=== PATIENT | female | born 1945 | race Caucasian/White ===

== ENCOUNTER 2021-06-16 14:03 | Emergency (ER) | payer MEDICARE, BC, SELFPAY ==
--- NOTE | ~2021-06-16 | CT_ITS ---
EXAMINATION: CT brain wo con DATE: 06/16/2021 14:39 INDICATION: Laceration above the right orbit. Ground-level fall. TECHNIQUE: Computed tomography (CT) of the head was performed without intravenous contrast. The dose- length product was 605.33 mGy-cm. Automated exposure control and iterative reconstruction technique w ere employed. COMPARISON: None FINDINGS: There are scattered moderate periventricular and subcortical white matter changes, most lik baldemar related to small vessel ischemic disease (microangiopathy). There is intracranial atherosclerosis . Basilar cisterns are patent. No acute intracranial hemorrhage, infarction, mass or mass effect. Bas ilar cisterns are patent. Paranasal sinuses and mastoids are pneumatized. No depressed skull fracture s. IMPRESSION: 1. No acute intracranial abnormality. 2: Chronic age-related findings. Reviewed, dictated and finalized at location A. H MAKER MACHINE
--- NOTE | ~2021-06-16 | CT_ITS ---
EXAMINATION: CT cervical spine wo con DATE: 06/16/2021 14:39 INDICATION: Ground-level fall. Neck pain. TECHNIQUE: Computed tomography (CT) of the cervical spine was performed without intravenous contrast. The dose-length product was 422 mGy-cm. COMPARISON: No prior studies for comparison. FINDINGS: There are changes of anterior cervical fusion and discectomy at C4-C7. There are degenerati ve disc disease at C3-4 and C7-T1. There is multilevel uncinate and facet hypertrophy. Odontoid proce ss is normal. Mild levocurvature of the cervical spine. Lung apices are normal. No significant parasp inal soft tissue abnormality. No acute fracture or traumatic malalignment. IMPRESSION: 1. No acute abnormality of the cervical spine. Reviewed, dictated and finalized at location A. ET CONTRACTOR
--- NOTE | ~2021-06-16 | XR_ITS ---
EXAMINATION: XR elbow RT min 3V DATE: 06/16/2021 14:28 INDICATION: Right elbow pain. TECHNIQUE: 4 views of right elbow were obtained. COMPARISON: None. FINDINGS: Bone alignment is normal. No fracture. 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 There is an elbow joint effusion. IMPRESSION: 1. Severe elbow joint osteoarthritis. 2. Elbow joint effusion. Reviewed, dictated and finalized at location A. LATORY LEAD
[2021-06-16 14:08] VITALS: BP 165/96; PULSE 99; RESP 16; TEMP 36.8; O2SAT 98
--- NOTE | 2021-06-16 15:38 | ED.FALL ---
HPI - Fall General Chief Complaint: Fall <Amanuel Donis MD - Last Filed: 06/16/21 16:59> Stated Complaint: fall, head injury <Amanuel Donis MD - Last Filed: 06/16/21 16:59> Time Seen by Provider: 06/16/21 14:07 <Amanuel Donis MD - Last Filed: 06/16/21 16:59> Source: patient <Amanuel Donis MD - Last Filed: 06/16/21 16:59> History of Present Illness HPI Narrative: Patient presents after a fall. Reports she tripped on her own feet fell on her right elbow and struck her right face. Her friend assisted with wound care and they then presented to the ER for further evaluation. She reports pain above her right eye constant achy worse with touching it, no radiation. She denies any changes in vision or hearing denies any focal numbness or weakness. She denies any prodrome prior to the event such as chest pain breath, dizziness, lightheadedness. Reports hearing well earlier in the day denies any nausea vomiting or diarrhea. <Amanuel Donis MD - Last Filed: 06/16/21 16:59> Review of Systems Review of Systems: CONSTITUTIONAL: Denies fever, chills, or sweats. EYES: Denies visual changes, redness, or discharge. ENT: Denies rhinorrhea, congestion, sore throat, or otalgia. CARDIOVASCULAR: Denies chest pain, palpitations, or edema. RESPIRATORY: Denies cough or dyspnea. GASTROINTESTINAL: Denies abdominal pain, nausea, vomiting, or diarrhea. GENITOURINARY: Denies dysuria or hematuria. SKIN: Denies rash or itching. MUSCULOSKELETAL: Denies back pain, joint pain, or myalgia. NEUROLOGIC: Denies numbness, dizziness, or weakness. PSYCHIATRIC: Denies anxiety or depression. <Amanuel Donis MD - Last Filed: 06/16/21 16:59> All systems reviewed & are unremarkable except as noted in HPI and below <Amanuel Donis MD - Last Filed: 06/16/21 16:59> Exam Narrative: GENERAL: Well-appearing, well-nourished, and in no acute distress. HEAD: Normocephalic, 4 cm laceration above the right orbit hemostatic no deep space tissue identified on wound exploration abrasion noted on the bridge of the nose EYES: PERRLA and EOMI. ENT: Nares clear, no rhinorrhea or epistaxis. Mucous membranes moist. No fractured teeth NECK: Supple. No masses. No JVD CHEST: Clear to auscultation. No respiratory distress. No wheezes rales or rhonchi HEART: Regular rate and rhythm. No murmur heard. Normal peripheral pulses. ABDOMEN: Soft, nontender, nondistended, normal active bowel sounds. EXTREMITIES: Normal range of motion. No edema. Mild diffuse tenderness on the right elbow SKIN: Warm, dry, no rash. NEURO: Cranial nerves II through XII are intact patient has 5 out of 5 strength in all extremities sensation intact to light touch in all extremities alert and oriented x3. PSYCH: Normal mood and affect. <Amanuel Donis MD - Last Filed: 06/16/21 16:59> Course Reevaluation(s) Reevaluation #1: Results reviewed with patient. Wound currently being sutured <Amanuel Donis MD - Last Filed: 06/16/21 16:59> Date: 06/16/21 <Amanuel Donis MD - Last Filed: 06/16/21 16:59> Time: 15:41 <Amanuel Donis MD - Last Filed: 06/16/21 16:59> Vital Signs Vital signs: Vital Signs Temperature 36.8 C 06/16/21 14:08 Pulse Rate 99 06/16/21 14:08 Respiratory Rate 16 06/16/21 14:08 Blood Pressure 165/96 H 06/16/21 14:08 Pulse Oximetry 98 06/16/21 14:08 Temperature 36.8 C 06/16/21 14:08 Pulse Rate 99 06/16/21 14:08 Respiratory Rate 16 06/16/21 14:08 Blood Pressure 165/96 H 06/16/21 14:08 Pulse Oximetry 98 06/16/21 14:08 <Amanuel Donis MD - Last Filed: 06/16/21 16:59> Vital Signs Temperature 36.8 C 06/16/21 14:08 Pulse Rate 99 06/16/21 14:08 Respiratory Rate 16 06/16/21 14:08 Blood Pressure 165/96 H 06/16/21 14:08 Pulse Oximetry 98 06/16/21 14:08 Temperature 36.8 C 06/16/21 14:08 Pulse Rate 99 06/16/21 14:08 Respiratory Rate 16 06/16/21 14:08
== END 2021-06-16 16:34 | disposition home or self-care (01) ==
PROVIDERS: Emergency Provider Emergency Medicine; PCP Family Medicine
DX: S01.111A Laceration without foreign body of right eyelid and periocular area, initial encounter (principal); S50.01XA Contusion of right elbow, initial encounter; S00.31XA Abrasion of nose, initial encounter; M19.021 Primary osteoarthritis, right elbow; W01.0XXA Fall on same level from slipping, tripping and stumbling without subsequent striking against object, initial encounter
CPT/HCPCS: 12013; 70450; 72125; 73080; 99284

== ENCOUNTER 2022-12-20 10:18 | Emergency (ER) | payer MEDICARE, OTHER, SELFPAY ==
[2022-12-20] VITALS (12 sets, daily range): BP systolic 130–157; BP diastolic 65–124; PULSE 66–81; RESP 15–23; TEMP 36.3; O2SAT 92–100
[2022-12-20 11:50] LABS: Basophils Percent Auto 0.2 % (0.2-1.2); Hemoglobin 10.6 g/dL (12.0-15.0); Immature Granulocyte Absolute 0.01 K/mm3 (0.00-0.031); Immature Granulocyte Percent A 0.2 % (0-0.5); Lymphocytes Absolute Auto 0.64 K/mm3 (0.9-3.2); Lymphocytes Percent Auto 10.7 % (18.3-44.2); Mean Corpuscular HGB Conc 34.2 g/dl (32-36); Mean Corpuscular Hemoglobin 32.6 pg (26-34); Mean Corpuscular Volume 95.4 fl (80-100); Mean Platelet Volume 9.7 fl (7.4-10.4); Monocytes Absolute Auto 0.7 K/mm3 (0.1-0.6); Monocytes Percent Auto 11.9 % (2.6-8.5); Neutrophils Absolute Auto 4.6 K/mm3 (1.3-6.7); Platelet Count Result 208 k/mm3 (150-375); Red Blood Count 3.25 M/mm3 (4.2-5.4); Red Cell Distribution Width 13.2 % (11.5-14.5)
[2022-12-20 12:03] LABS: Alanine Aminotransferase 28 U/L (6-35); Albumin Level 4.6 g/dL (3.5-5.1); Alkaline Phosphatase 69 U/L (38-126); Anion Gap 7 mmol/L (8-16); Aspartate Amino Transferase 32 U/L (14-36); Blood Urea Nitrogen 14 mg/dL (7-17); Calcium 9.4 mg/dL (8.4-10.2); Carbon Dioxide 28 mmol/L (22-30); Chloride 88 mmol/L (98-107); Estimated CRCL calculation 43 ml/min; Estimated Glomerular Filt Rate > 60; Glucose 102 mg/dL (65-110); Sodium 123 mmol/L (137-145)
[2022-12-20 13:03] LABS: Appearance Urine Cloudy (Clear); Bacteria Urine 1+ /hpf; Bilirubin Urine Negative (Negative); Blood Urine 3+ (Negative); Color Urine Yellow (Yellow); Glucose Urine UA Negative (Negative); Ketones Urine Negative (Negative); Leukocyte Esterase Ur 3+ LEU/UL (Negative); Nitrate Urine Negative (Negative); Non Pathogenic Casts 0-2; Protein Urine Trace mg/dL (Negative); RBC Urine >100 /hpf (0-2); Specific Grav Ur 1.012 (1.001-1.035); Squamous Epithelial Cell Urine None seen /hpf (Few); Urobilinogen Urine 0.2 mg/dL (<2.0); WBC Urine >100 /hpf; pH Urine 6.5 (5.0-9.0)
--- NOTE | 2022-12-20 13:03 | ED.RECABL ---
HPI - Recheck/Abnormal Lab/Rx General Chief Complaint: Recheck/Abnormal Lab/Rx Stated Complaint: sent by MD for low sodium (123) Time Seen by Provider: 12/20/22 11:51 Source: patient and RN notes reviewed Mode of arrival: ambulatory Limitations: no limitations History of Present Illness HPI narrative: This is a 77 year old female who presents for evaluation of hyponatremia. Patient states she had outpatient labs drawn by her site operations manager. She was found to have sodium 123 and she was told to come to ER. She reports over the past 6 months she had been pushing fluids, water. She deneis nausea, vomiting, diarrhea, headache or dizziness. She denies taking diuretics. She also thinks she has UTI today. She has increased urinary urgency today and dysuria. She states she has not started hematuria yet. She has not been on antibiotics this year. Related Data Home Medications Medication Instructions Recorded Confirmed trazodone 50 mg tablet 50 mg PO QHS PRN 11/21/20 09/26/22 meloxicam 15 mg tablet 15 mg PO DAILY 04/11/22 09/26/22 methotrexate sodium 2.5 mg tablet See Rx Instructions PO WEEKLY 04/11/22 09/26/22 olmesartan 40 mg tablet 40 mg PO DAILY 04/11/22 09/26/22 biotin 1,000 mcg chewable tablet 1,000 mcg PO DAILY 09/26/22 09/26/22 duloxetine 60 mg capsule,delayed 90 mg PO QAM 09/26/22 09/26/22 release hydroxychloroquine 200 mg tablet 200 mg PO DAILY 09/26/22 09/26/22 Allergies Allergy/AdvReac Type Severity Reaction Status Date / Time guaifenesin Allergy Rash Verified 12/20/22 11:39 Review of Systems Constitutional: Constitutional: Denies weakness Cardiovascular: Cardiovascular: Denies syncope, Denies rapid heart rate, Denies irregular heart rhythm, Denies leg edema and Denies dyspnea Respiratory: Respiratory: Denies chest congestion, Denies hemoptysis, Denies excessive phlegm production and Denies dyspnea Gastrointestinal: Gastrointestinal: Denies abdominal pain, Denies hematochezia, Denies diarrhea and Denies vomiting Genitourinary: Genitourinary: Denies hematuria and Reports dysuria Musculoskeletal: Musculoskeletal: Reports back pain, Denies joint swelling, Denies loss of height and Denies muscle weakness Neurologic: Denies syncope, Denies focal weakness and Denies weakness PMFSH Past Medical History Medical History (Updated 12/20/22 @ 19:03 by Esthela Haas MD) Arthritis 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 Hypertension Lumbar spondylosis NPH (normal pressure hydrocephalus) Osteoporosis Rheumatoid arthritis Thyroid disorder Surgical History Surgical History (Updated 12/20/22 @ 13:08 by Esthela Haas MD) Hip bursitis, left debridement with abductor repair 2011 History of arthroscopy of left knee 2015 - meniscectomy S/P CMO shunt Family History Family History Mother Cancer Hypertension Heart disease Depression Cerebrovascular accident Social History Social History Smoking status: Never smoker Second hand tobacco smoke exposure: No Alcohol intake: never Lack of Transportation: No Lack of Food: Never True Current Housing: I Have Housing Concerned About Future Housing: No Difficulty Paying Gas/Electric Bills: No Difficulty Paying for Meds: No Currently Unemployed: No Education: High School Diploma/GED Difficulty w/ Childcare or Family Care: No Living arrangements: alone Occupation/Education: retired Gender identity (if verbalized by the patient): Female Exam Const: General: no acute distress and alert Nutritional Appearance: well nourished Orientation/consciousness: patient oriented x3 HENMT: Head: normal to inspection Eyes: EOM: EOMs intact bilaterally Neck: Neck: normal visual inspection Chest: Chest palpation & inspection: normal inspection of the chest Resp: Effort & Inspection: normal respiratory e
[2022-12-20 13:04] LABS: Add Urine Microscopic? YES
[2022-12-20] MEDS: SODIUM CHLORIDE 0.9% IV 1,000 ML 999 ML IV CONT (13:08)
[2022-12-20] MEDS: SODIUM CHLORIDE 0.9% IV 1,000 ML 125 ML IV CONT (14:08)
--- NOTE | 2022-12-20 14:27 | PC.NURSE ---
Pt requesting to leave MD PRINCE and hospitalist aware.
--- NOTE | 2022-12-20 15:29 | P.PNCROSS_ITS ---
Event Note Event Note Event Note: Patient was sent to the emergency department by her cash management coordinator after routine blood work showed hyponatremia. Patient has a history of normal pressure hydrocephalus for which she underwent BIOFUELS PLANT MANAGER shunt placement in February 2022 at [place]. Patient states that since then her sodium level has retain the been low. It patient has no symptoms of dizziness nausea vomiting headache seizures and patient states that she feels baseline well. She was found to have urinalysis suggestive of urinary tract infection and patient noted minimal dysuria but no other symptoms. ER provider recommended hospitalization due to hyponatremia. Last sodium was 133 and before that 127 no prior values on record. Sodium level today is 123. Patient did not want to be admitted to the hospital. I discussed this with ED provider and she stated that patient could sign out AMA but she would not discharge the patient. I presented options of signing out AMA verses observation stay with repeat sodium level to make sure she did not get over corrected too quickly. Patient stated that she did not want to stay in the hospital that she understood the risks of doing so including symptoms of headache, dizziness, nausea, vomiting, seizures, , and other unknown symptoms. Patient reports that she is going to eat some salty food including popcorn when she goes with her friends to the movies today. Patient reports that she drove here but she would have her daughter come pick her up. She was on the phone with the daughter and ordered a [employer] sandwich while I was discussing potential AMA with patient. Due to the urinary tract infection likelihood patient did receive IV Rocephin in the emergency department. Additionally, she received 1 L IV fluids normal saline. Prescription for cefdinir sent to patient's pharmacy.
== END 2022-12-20 14:35 | disposition left against medical advice (07) ==
LOC: ANHED 11:51 → ANH3MEDSUR 14:26 → ANHED 14:29
PROVIDERS: Emergency Provider General Practice; PCP Family Medicine
DX: E87.1 Hypo-osmolality and hyponatremia (principal); N39.0 Urinary tract infection, site not specified; I10 Essential (primary) hypertension; M06.9 Rheumatoid arthritis, unspecified
CPT/HCPCS: 36415; 80053; 81001; 84443; 85025; 87077; 87086; 87186; 96365; 99284; J0696; J7030

== ENCOUNTER 2025-03-16 21:56 | Inpatient (IN) | payer MEDICARE, OTHER, SELFPAY ==
[2025-03-16] VITALS (10 sets, daily range): BP systolic 129–140; BP diastolic 57–62; PULSE 75–82; RESP 15–23; TEMP 36.7; O2SAT 94–98
--- NOTE | ~2025-03-16 | CT_ITS ---
EXAMINATION: CT thoracic lumbar w con DATE: 03/17/2025 01:17 INDICATION: Discitis/osteoarthritis. TECHNIQUE: Computed tomography (CT) of the thoracic and lumbar spine was performed without intravenous contrast. Automated exposure control and iterative reconstruction technique were employed. The dose-length product was 823.99 mGy-cm. COMPARISON: None FINDINGS: CT THORACIC SPINE: There is 15 degrees dextroscoliosis of thoracic spine there is mild chronic anterior wedging of multiple thoracic vertebral bodies. There are changes of anterior fusion procedure in cervical spine. There is 2 mm anterolisthesis of C7 on T1. There is severely decreased disc height at most thoracic levels. There is multilevel severe facet joint osteoarthritis. There is mild neural foraminal stenosis at many levels on either side. On the right, there is moderate neural foraminal stenosis at C7-T1 and T12-L1. On the left, there is moderate neural foraminal stenosis at T5-T6. There is mild central canal stenosis at many levels. CT LUMBAR SPINE: There is 17 degrees levoscoliosis of thoracolumbar spine. Vertebral body heights are normal. There is severely decreased disc height at all levels. There is multilevel severe facet joint osteoarthritis. The discs are bulging from L1-L2 through L5-S1 with mild neural foraminal stenosis at multiple levels. On the right, there is moderate neural foraminal stenosis at L1-L2 and L2-L3. On the left, there is moderate neural foraminal stenosis at L3-L4, L4-L5, and L5-S1. There is mild central canal stenosis at the disc levels from L1-L2 through L5-S1. IMPRESSION: 1. No evidence of discitis/osteomyelitis. 2. Severe thoracic and lumbar spondylosis. 3. Scoliosis. 4. Anterior fusion procedure in cervical spine. Reviewed, dictated and finalized at location E. WORKING SHOP LABORER
--- NOTE | ~2025-03-16 | XR_ITS ---
EXAMINATION: XR chest 1V portable COMPARISON: No comparisons available. HISTORY: verify picc THAT WAS PLACED TRANSPORTATION MAINTENANCE OPERATOR FINDINGS: Mild pulmonary venous congestion. No pneumothorax. Mild cardiomegaly. Mediastinal and hilar contours are within normal limits. Post sternotomy. Miscellaneous: Right PICC line terminates in the SVC. Probable right-sided STORY TELLER shunt. Impression: Mild CHF. PICC line placement as above. Reviewed, dictated and finalized at location P. EAR TECHNICIAN Impression: Mild CHF. PICC line placement as above.
--- NOTE | ~2025-03-16 | XR_ITS ---
XR shunt series 03/16/2025 23:04 Indication: Altered mental status Procedure: 5 views of the ventriculoperitoneal shunt Comparison: 12/20/2011 Findings: Right-sided ventriculoperitoneal shunt identified terminating in the left mid abdomen. No shunt discontinuity identified. There is a nodular opacity in the right upper thorax. Correlation with CT chest recommended. Status post median sternotomy for CABG. There is prosthetic heart valve. Impression: 1: BI[employer] ENG[employer] shunt catheter enters the right frontal/parietal region. No discontinuity or kinking of the proximal catheter. Valve reservoir appears intact and continuous from skull to peritoneum. 2: Nodular opacity right apex. Correlation with CT chest recommended. Reviewed, dictated and finalized at location I. ENISHMENT ANALYST Impression: 1: BI[employer] shunt catheter enters the right frontal/parietal region. No discontinuity or kinking of the proximal catheter. Valve reservoir appears intact and contin uous from skull to peritoneum. 2: Nodular opacity right apex. Correlation with CT chest recommended.
--- NOTE | ~2025-03-16 | CT_ITS ---
CT HEAD NON-CONTRAST Clinical History: AMS Comparison: CT brain 06/16/2021 Technique: Unenhanced axial images skull base to vertex Coronal, sagittal reformats CT images acquired with automatic exposure control for dose reduction DLP: 681 mGy-cm Findings: Right frontal approach SHIP KEEPER shunt with catheter tip at septum pellucidum. Chronic white matter microvascular ischemic changes. Sulci, ventricles: Unremarkable. No intracerebral hemorrhage. No evidence acute territorial infarct. No mass effect, midline shift. Bony calvarium intact. Visualized paranasal sinuses: Left maxillary, ethmoid, frontal disease. Mastoid air cells: Clear. IMPRESSION: 1. No acute intracranial findings. Reviewed, dictated and finalized at location R. E SPECIALIST
--- NOTE | ~2025-03-16 | CT_ITS ---
EXAMINATION: CTA chest PE abdomen pel DATE: 03/17/2025 01:15 INDICATION: Discitis/osteomyelitis. Altered mental status. TECHNIQUE: Computed tomography angiography (CTA) of the chest was performed with 100 mL Omnipaque-350 intravenous contrast timed to evaluate the pulmonary arteries. Coronal maximum intensity projection 3D-reconstructions were created by the technologist. Computed tomography (CT) of the abdomen and pelvis was performed with intravenous contrast. Automated exposure control and iterative reconstruction technique were employed. The dose-length product was 742.31 mGy-cm. COMPARISON: None. FINDINGS: CTA chest: There is septal thickening in the lungs, consistent mild pulmonary edema. There are subsegmental airspace opacities in right upper lobe and right middle lobe. There is a trace left pleural effusion. There are changes of thyroidectomy. The heart size is normal. There are coronary artery calci fications. There are changes of coronary artery bypass grafting. No pericardial effusion. There are changes of anterior fusion procedure in cervical spine. There is severe thoracic spondylosis. Thoracic dextroscoliosis is noted. CT abdomen and pelvis: The liver, gallbladder, spleen, pancreas, adrenal glands, and right kidney are normal. There is a 10 mm cyst in left kidney. There are no dilated loops of bowel. The appendix is not visualized. There is trace pelvic ascites. The periuterine veins and ovarian veins are enlarged, consistent with pelvic venous insufficiency. There are no pathologically enlarged lymph nodes. A ventriculoperitoneal shunt is noted. There is thoracolumbar levoscoliosis. There is severe lumbar spondylosis. IMPRESSION: 1. No pulmonary embolus. 2. Mild pulmonary edema. 3. Mild airspace opacities in right upper lobe and right middle lobe, consistent with atelectasis versus pneumonia. Reviewed, dictated and finalized at location E. HEAD CARPENTER IMPRESSION: 1. No pulmonary embolus. 2. Mild pulmonary edema. 3. Mild airspace opacities in right upper lobe and right middle lobe, consisten t with atelectasis versus pneumonia.
--- OUTSIDE RECORDS SUMMARY | 2025-03-16 11:45 | XMS_ITS | Encounter Summary ---
Author Organization [facility] Address [address] [facility] [address] [place] [address] Phone Care Team Providers Care Mammography Tech Name Role Phone Pascual Connor MD Primary Care Provider [phone] Jenifer Quezada PT Unavailable Unavaila ble Encounter Details Date Type Department Care Team (Late st Contact Info) Description 03/16/2025 11:45 AM FLEA MARKET SELLER Office Visit [facility] Medicine Cardiothoracic Surgery [address] [facility] 8th Floor [address] [place], [place] [address] Brenna Chavez MD [address] [facility] [id number] [place] [address] Social History Tobacco Use Types Packs/Day Years Used Date Smoking Tobacco: Never Smokeless Tobacco: Never Alcohol Use Standard Drinks/Week Comments Never 0 (1 standard drink = 0.6 oz pur e alcohol) Social Connection and Isolation Panel Answer Date Recorded In a typical week, how many times do you talk on the phone with family, friends, or neighbors? Three times a week 02/08/2022 How often do you get togethe r with friends or relatives? Twice a week 02/08/2022 How often do you attend chur ch or hinduism services? More than 4 times per year 02/08/2022 Do you belong to any clubs o r organizations such as restoration groups, unions, fraternal or athletic groups, or school groups? Yes 02/08/2022 How often do you attend meet ings of the clubs or organizations you belong to? More than 4 times per year 02/08/2022 Are you , , di vorced, , never , or living with a partner? 02/08/2022 Overall Financial Resource Strain (CARDIA) Answe r Date Recorded How hard is it for you to pa y for the very basics like food, housing, medical care, and heating? Not hard at all 02/08/2022 PHQ-2 Answer Date Recorded PHQ-2 Total Score 0 01/10/2025 PRAPARE - Transportation Answer Date Re corded In the past 12 months, has l ack of transportation kept you from medical appointments or from getting medications? No 01/13 In the past 12 months, has l ack of transportation kept you from meetings, work, or from getting things needed for daily living? No 02/08/2022 Housing Stability Vital Sign Answer Sergio e Recorded In the last 12 months, was t here a time when you were not able to pay the mortgage or rent on time? No 02/08/2022 In the last 12 months, how many places have you lived? 1 02/08/2022 In the last 12 months, was t here a time when you did not have a steady place to sleep or slept in a retirement (including now)? No 02/08/2022 Social Connection and Isolation Panel Answer Date Recorded In a typical week, how many times do you talk on the phone with family, friends, or neighbors? More than three times a week 01/10/2025 How often do you get togethe r with friends or relatives? More than three times a week 01/10/2025 How often do you attend chur ch or hinduism services? More than 4 times per year 01/10/2025 Do you belong to any clubs o r organizations such as restoration groups, unions, fraternal or athletic groups, or school groups? Yes 01/10/2025 How often do you attend meet ings of the clubs or organizations you belong to? More than 4 times per year 01/10/2025 Are you , , di vorced, , never , or living with a partner? 01/10/2025 AUDIT-C Answer Date Recorded Frequency of Alcohol Consumption Not on file 03/02/2025 Q2: How many drinks containi ng alcohol do you have on a typical day when you are drinking? Patient does not drink Frequency of Binge Drinking Not on file 02/12 Overall Financial Resource Strain (CARDIA) Answe r Date Recorded How hard is it for you to pa y for the very basics like food, housing, medical care, and heating? Not hard at all 01/10/2025 Hunger Vital Sign Answer Date Recorded Within the past 12 months, y ou worried that your food would run out before you got the money to buy more. Never true 01/11/20 25 Within the past 12 months, t he food you bought just didn't last and you didn't have money to get more. Never true 01/10/2025 PRAPARE - Transportation Answer Date Re corded In the past 12 months, has l ack of transportation kept you from medical appointments or from getting medications? No 12/14 In the past 12 months, has l ack of transportation kept you from meetings, work, or from getting things needed for daily living? No 01/10/2025 Housing Stability Vital Sign Answer Sergio e Recorded In the last 12 months, was t here a time when you were not able to pay the mortgage or rent on time? No 01/10/2025 In the past 12 months, how m any times have you moved where you were living? 0 01/10/2025 At any time in the past 12 m [facility], were you homeless or living in a retirement (including now)? No 01/10/2025 [facility] Utilities Answer Date Recorded In the past 12 months has e electric, gas, oil, or water company threatened to shut off services in your home? No 01/10/2025 Personal Safety Answer Date Recorded Have you ever been in or are you currently in a harmful physical or emotional relationship or is someone making you feel afraid or unsafe? Denies 01/17/2025 Comments No Sex and Gender Information Value Date Recorded Sex Assigned at Not on file Legal Sex Female 3:05 PM FLEA MARKET SELLER Gender Identity Not on file Sexual Orientation Not on file documented as of this encounter Last Filed Vital Signs Vital Sign Reading Time Taken Comments Blood Pressure 92/56 03/16/2025 11:52 AM FLEA MARKET SELLER Pulse 69 03/16/2025 11:52 AM FLEA MARKET SELLER Temperature - - Respiratory Rate - - Oxygen Saturation 98% 03/16/2025 11:52 AM FLEA MARKET SELLER Inhaled Oxygen Concentration - - Weight 64.2 kg (141 lb 9.6 oz) 03/16/2025 11:52 AM FLEA MARKET SELLER Height 157.5 cm (5' 2) 03/16/2025 11:52 AM FLEA MARKET SELLER Body Mass Index 25.9 03/16/2025 11:52 AM FLEA MARKET SELLER documented in this encounter Plan of Treatment Not on file documented as of this encounter Visit Diagnoses Not on filedocumented in this encounter Care Teams Mammography Tech Relationship Specialty Start Date End Date Pascual Connor MD [address] [place] [address] PCP - General Family Medicine 10/04/19 Jenifer Quezada, PT Physical Therapist Physical Therapy 08/02/21 documented as of this encounter
--- OUTSIDE RECORDS SUMMARY | 2025-03-16 12:33 | XMS_ITS | Encounter Summary ---
Author Organization [facility] Healthcare Address [address] [place] [address] Care Team Providers Care Infantry Weapons Crewmember Name Role Phone Pascual Connor MD Primary Care Provider [phone] Jenifer Quezada PT Unavailable Unavaila ble Reason for Referral * Cardiology (Routine) - Closed Specialty Diagnoses / Procedures Referred By Contac t Referred To Contact Diagnoses S/P MVR (mitral valve repair) S/P CABG (coronary artery bypass graft) Procedures Transthoracic Echo (TTE) Complete W Doppler/CF Brenna Chavez MD [address] [facility] [id number] [place] [address] Phone: tel: fax: [address] [address] Referral ID Status Reason Start Date Expiration Date Visits Re quested Visits Authorized [id number] Closed 02/10/2025 03/12/2026 1 1 ERTY MASTER Reason for Visit * Cardiology (Routine) - Closed Specialty Diagnoses / Procedures Referred By Contac t Referred To Contact Diagnoses S/P MVR (mitral valve repair) S/P CABG (coronary artery bypass graft) Procedures Transthoracic Echo (TTE) Complete W Doppler/CF Brenna Chavez MD [address] [facility] [id number] [place] [address] Phone: tel: fax: [facility] [address] [facility] [place] [address] Referral ID Status Reason Start Date Expiration Date Visits Re quested Visits Authorized [id number] Closed 02/10/2025 03/12/2026 1 1 Encounter Details Date Type Department Care Team (Latest Contact Info) Description 03/16/2025 12:33 PM PROPERTY MASTER Hospital Encounter [facility] Cardiac Diagnostic Lab [facility] 8th [place] [address] S/P MVR (mitral valve repair); S/P CABG (coronary artery bypass graft) Social History Tobacco Use Types Packs/Day Years [...] often do you attend chur ch or yazdanism services? More than 4 times per year 02/08/2022 Do you belong to any clubs o r organizations such as samaritan groups, unions, fraternal or athletic groups, or [...] place to sleep or slept in a assisted (including now)? No 02/08/2022 Social Connection and Isolation Panel Answer Date Recorded In a typical week, how many times do you talk on the phone with family, friends, or neighbors? More than three times a week 01/10/2025 How often do you get togethe r with friends or relatives? More than three times a week 01/10/2025 How often do you attend chur ch or yazdanism services? More than 4 times per year 01/10/2025 Do you belong to any clubs o r organizations such as samaritan groups, unions, fraternal or athletic groups, or [...] any time in the past 12 m [facility], were you homeless or living in a assisted (including now)? No 01/10/2025 [facility] Utilities Answer Date Recorded In the past 12 months has th e electric, gas, oil, or water company [...] on file Legal Sex Female 3:05 PM PROPERTY MASTER Gender Identity Not on file Sexual Orientation Not on file documented as of this encounter Plan of Treatment Pending Results Name Type Priority Associated Diagnoses Date/Time Transthoracic Echo (TTE) Complete W Doppler/CF Echocardiography Routine S/P MVR (mitral valve repair) S/P CABG (coronary artery bypass graft) 03/16/2025 4:16 PM PROPERTY MASTER Scheduled Orders Name Type Priority Associated Diagnoses Order Schedule Transthoracic Echo (TTE) Complete W Doppler/CF Echocardiography Routine S/P MVR (mitral valve repair) S/P CABG (coronary artery bypass graft) Once for 1 Occurrences starting 03/16/2025 until 03/16/2025 documented as of this encounter Visit Diagnoses Diagnosis S/P MVR (mitral valve repair) 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
--- NOTE | 2025-03-16 22:10 | ECG_ITS ---
Test Date: 2025-03-16 23:08:28 Measurements Intervals [place] Rate: 78 P: 0 MN: 0 QRS: 14 QRSD: 112 T: 76 QT: 318 QTc: 362 Interpretive Statements SINUS RHYTHM WITH FIRST DEGREE AV BLOCK INCOMPLETE RIGHT BUNDLE BRANCH BLOCK NONSPECIFIC ST & T-WAVE ABNORMALITY- INF/LAT LEADS BASELINE ARTIFACT- I, II, III, AVR, AVL, AVF, V1-V2 BORDERLINE ECG No previous ECG available for comparison Electronically Signed On 03-17-2025 06:16:02 SHIRT BANDER by Carlin Villagomez D.O.
--- NOTE | 2025-03-16 22:10 | ED.AMS ---
HPI - Altered Mental Status General Chief Complaint: Altered Mental Status Stated Complaint: INCREASED CONFUSION Time Seen by Provider: 03/16/25 22:02 Source: patient and EMS Mode of arrival: EMS Limitations: altered mental status History of Present Illness HPI narrative: Patient is a 79-year-old female presents to the emergency department via EMS for reported increased confusion from nursing facility. Patient is reported typically be alert oriented x4 and was noted to be slightly more confused today. Patient denies any current complaints. Patient does note that she thinks she had a fall earlier today, denies hitting her head or having loss of consciousness. Patient states she is on multiple medications mid taking these as prescribed. Patient denies any chest pain, difficulty breathing, abdominal pain, nausea, vomiting, fever, dysuria, urinary frequency, urinary urgency, melena, hematochezia, focal weakness, numbness, vision changes, difficulty swallowing. Patient knows where she is right now motor name is but does not know how old she is or what year it is. Patient admits to being on blood thinners for atrial fibrillation. DC summary from 02/25/25: Carly Zaldivar is a 79 year old female with PMHx of HTN, hydrocephalus s/p shunt, hypothyroidism, anxiety, depression, chronic hypoNa, RA, and SUNNY who presented with worsened low back pain to OSH. CT lumbar spine with severe multilevel lumbar spondylosis. Received steroids and opioids for pain control. CT C and T spine with C7-T1 neuroforamen narrowing. Course c/b hypoNa. Nephro consulted. Additionally had worsened hypoxia thought to be 2/2 pna and was treated with abx. CTA unremarkable. Also noted to have intermittent weakness. Due to this required MRI which was not able to be performed. Transferred to [facility] to undergo this. She was noted to ahve undergone a stroke. Additionally mri spine was concerning for discitis and osteomyelitis. ID consulted and recommended IV daptomycin. Workup also notable for endocarditis of mitral valve as noted on JANELLE. Underwent MVr, patch repair of abscess cavity, and CABG 2, JOSELYN ligation with CTS on 01/17. PT/OT evaluated patient and recommended acute rehab. Related Data Home Medications ?Medication ?Instructions ?Recorded ?Confirmed ?Last Taken ?Type methotrexate sodium 2.5 mg tablet See Rx Instructions PO WEEKLY 04/11/22 02/10/25 Unknown History Held on 02/24/25. Instructions: wait until see pcp olmesartan 40 mg tablet 40 mg PO DAILY 04/11/22 02/10/25 Unknown History Held on 02/24/25. Instructions: wait until see pcp alendronate 70 mg tablet (Fosamax) 70 mg PO WEEKLY 12/06/24 02/10/25 Unknown History Held on 02/24/25. Instructions: wait until see pcp ascorbic acid (vitamin C) 500 mg 1,000 mg PO DAILY 12/06/24 02/10/25 Unknown History capsule magnesium oxide 250 mg PO DAILY 12/06/24 02/10/25 Unknown History Held on 02/24/25. Instructions: wait until see pcp acetaminophen 500 mg tablet 500 mg PO Q6H PRN pain 02/10/25 02/10/25 Unknown History daptomycin 500 mg intravenous 500 mg IV DAILY 02/10/25 02/10/25 Unknown History solution diclofenac sodium 1 % topical gel 2 g topical TID PRN pain 02/10/25 02/10/25 Unknown History ferrous sulfate 325 mg (65 mg 325 mg PO DAILY 02/10/25 02/10/25 Unknown History iron) tablet (iron) lidocaine 4 % topical patch 3 patch topical DAILY 02/10/25 02/10/25 Unknown History (Lidocaine Pain Relief) zinc gluconate 50 mg tablet 50 mg PO DAILY 02/10/25 02/10/25 Unknown History cholecalciferol (vitamin D3) 25 2,000 unit PO DAILY 02/11/25 02/11/25 Unknown History mcg (1,000 unit) tablet (Vitamin D3) Allergies Allergy/AdvReac Type Severity Reaction Status Date / Time guaifenesin Allergy Rash Verified 02/11/25 11:23 Review of Systems Review of Systems: A 10 system review of systems was completed on the patient and is negative except for what is stated in the HPI. Nursing and ancillary documentation was reviewed. [facility] Past Medical History Medical History Elbow arthritis Arthritis of both glenohumeral joints Lumbar spondylosis Rheumatoid arthritis NPH (normal pressure hydrocephalus) Thyroid disorder Osteoporosis Arthritis Hypertension Surgical History Surgical History S/P METALLURGIST PROCESS shunt History of arthroscopy of left knee 2015 - meniscectomy Hip bursitis, left debridement with abductor repair 2012 Family History Family History Mother Cancer Hypertension Heart disease Depression Cerebrovascular accident Social History Social History Smoking status: Never smoker Second hand tobacco smoke exposure: No Alcohol intake: current Drinks per week: 0 Substance use: never Substance use type: does not use Lack of Transportation: No Lack of Food: Never True Current Housing: I Have Housing Concerned About Future Housing: No Difficulty Paying Gas/Electric Bills: No Difficulty Paying for Meds: No Currently Unemployed: No Education: High School Diploma/GED Difficulty w/ Childcare or Family Care: No Living arrangements: alone Occupation/Education: retired Gender identity (if verbalized by the patient): Female Spiritual care concerns: No Exam Narrative: CONST: No acute distress. HENMT: Head is normocephalic and atraumatic. Tacky mucous membranes. No posterior oropharynx erythema. METALLURGIST PROCESS shunt palpated. EYES: No scleral icterus. No conjunctival injection or pallor. PERRL. NECK: No meningeal signs. RESP: Able to speak in full sentences. Normal respiratory effort. CTAB. CARDIO: Regular rate. Irregularly irregular rhythm. 2+ DP and radial pulses bilaterally. Murmur present. GI: Nondistended. No tenderness to palpation. Soft. : No CVA tenderness to palpation. SKIN: No rashes or lesions noted on exposed skin. NEURO: Oriented x2. Moves all extremities. No ataxia. No drift of any extremity. No facial asymmetry. Speech is clear and fluent. Extraocular motions intact. Visual sloan intact to confrontation. Sensation intact to light touch throughout all 4 extremities. No aarti inattention or extinction. EXTREM/MSK/BACK: No pedal edema. PSYCH: Normal affect. Course Vital Signs Vital signs: Vital Signs Temperature 98.0 F 03/16/25 21:59 Pulse Rate 76 03/16/25 21:59 Respiratory Rate 21 H 03/16/25 21:59 Blood Pressure 140/62 03/16/25 21:59 Pulse Oximetry 97 03/16/25 21:59 Oxygen Delivery Room Air 03/16/25 21:59 Temperature 98.5 F 03/17/25 03:01 Pulse Rate 80 03/17/25 05:45 Respiratory Rate 19 03/17/25 05:45 Blood Pressure 147/67 H 03/17/25 05:16 Pulse Oximetry 100 03/17/25 04:15 Oxygen Delivery Room Air 03/16/25 22:17 [facility] Narrative Medical decision making narrative: Patient presents with the above complaint. Initial vitals are remarkable for borderline tachypnea with a respiratory rate of 21. Physical examination as noted above. Plan discussed: laboratory analysis, EKG, imaging. Patient ordered IV fluids. NIHSS: 1 No tPA given due to eliquis. X-ray shunt series radiology preliminary report impression is shown catheter terminates in the left lower abdomen. No abnormalities. Further urine studies ordered. Call out to Nephrology, pending call back at this time. Plan for fluid restriction at this time. Q 4-6 hour sodium is ordered. Further imaging ordered including a CT of the chest and pelvis and thoracic and lumbar spine. He potassium repletion is also in process. CT of the and without contrast preliminary report shows no acute intracranial hemorrhage, hydrocephalus, or herniation. Shunt catheter in place. Left maxillary sinus air-fluid level, correlate with sinusitis. While sleeping on the monitor patient desaturated down to 50% and was placed on 2 L of supplemental oxygen and the and saturating and 91 to 93%, was placed on 3 L of supplemental oxygen saturating 95% on this intervention. Given patient's confusion, worsening sodium level, and respiratory abnormalities patient ordered 3% hypertonic saline 150 cc bolus over 20 minutes. Still have not received a call back from Nephrology. CT of the thoracic spine with contrast preliminary radiology impression is no acute findings. CT of the lumbar spine preliminary radiology impression is no acute findings, mild pelvic free fluid. I spoke with Nephrology Dr. Canseco who agrees with plan of care, will see the patient on consultation. CTA of the chest preliminary report reveals negative CTA chest, no pulmonary embolism. CT of the abdomen pelvis preliminary report reveals no acute intra-abdominal process. I spoke with the hospitalist on-call who spoke with the neurologist here and they want the patient to be transferred to [facility] where she receivs all of her care and want her to get an MRI which we are unable to do here due to the METALLURGIST PROCESS shunt. [facility] access line contacted. [facility] has accepted the patient for transfer to the medical ICU under Dr. Anaya, they note that there is a wait and anticipate at least a few days. Patient is on the wait list. I spoke with the filling separator on-call Dr. Giles who notes the patient does not require ICU level of care this time and can go to the IMU. I spoke with Neurology on-call Dr. Guy who agrees to see the patient on consultation. Differential Diagnosis Differential Diagnosis: Polypharmacy, metabolic derangement, electrolyte derangement, pneumonia, UTI, intracranial hemorrhage, hydrocephalus, ACS, CVA. Medical Records I have reviewed the following patient records and this information was taken into consideration when formulating the assessment and plan.: previous hospitalizations Lab Data MDM Lab Attestation statement: I personally reviewed the patient's lab results. Lab results narrative: CBC reveals a white blood cell count of 11.7, hemoglobin 8.4. White blood cell count is increased from 7.5 and hemoglobin has increased from 7.1 when compared to most recent labs on file from February 25, 2025. Coags reveal a PT of 16.7 an APTT of 37.3. VBG reveals a pH of 7.437 and a pCO2 of 47.5 and a bicarb of 31.3 consistent with a metabolic alkalosis. Comprehensive metabolic panel reveals a sodium 120, potassium 2.7, chloride 84, bicarb of 32, creatinine 1.03, glucose 111. When compared to most recent labs on file from February 25, 2025 at that time the sodium was 123, chloride was 92, creatinine was 0.85. Total creatine kinase 76. Troponin 0.022. BNP is 939. Lipase is 129. TSH is 18.8. Urinalysis reveals 1+ protein, trace ketones, 3-5 RBCs. UDS is negative. Ethyl alcohol level is less than 10. Acetaminophen levels less than 10. Salicylates are less than 10. COVID and influenza and RSV testing are negative. Total T3 is 0.46. Free T4 is 1.81. Random cortisol is 24.1. 03/16/25 22:43 03/17/25 04:31 Labs: Lab Results 03/16/25 03/16/25 03/16/25 Range/Units 22:43 22:44 23:50 WBC 11.7 H (4.5-10.0) K/mm3 RBC 2.63 L (4.2-5.4) M/mm3 Hgb 8.4 L (12.0-15.0) g/dL Hct 24.2 L (37.0-47.0) % MCV 92.0 (80-100) fl MCH 31.9 (26-34) pg MCHC 34.7 (32-36) g/dl RDW 15.8 H (11.5-14.5) % Plt Count 260 (150-375) k/mm3 MPV 9.0 (7.4-10.4) fl Immature Gran % (Auto) 0.8 H (0-0.5) % Neut % (Auto) 80.2 H (45.5-73.1) % Lymph % (Auto) 10.6 L (18.3-44.2) % Nolan % (Auto) 8.2 (2.6-8.5) % Eos % (Auto) 0.1 (0-4.4) % Baso % (Auto) 0.1 L (0.2-1.2) % Lymph # (Auto) 1.24 (0.9-3.2) K/mm3 Nolan # (Auto) 1.0 H (0.1-0.6) K/mm3 Eos # (Auto) 0.0 (0-0.3) K/mm3 Baso # (Auto) 0.0 (0.0-0.1) K/mm3 Abs Immat Gran (auto) 0.09 H (0.00-0.031) K/mm3 Absolute Neuts (auto) 9.4 H (1.3-6.7) K/mm3 Absolute Nucleated RBC 0.000 (0.0-0.012) K/mm3 Nucleated RBC % 0.0 (0.0-0.2) % PT 16.7 H (11.1-14.7) Seconds INR 1.3 APTT 37.3 H (22.3-36.8) Seconds Sodium 120 L (137-145) mmol/L Potassium 2.7 L* (3.4-5.0) mmol/L Chloride 84 L (98-107) mmol/L Carbon Dioxide 32 H (22-30) mmol/L Anion Gap 4 (4-12) mmol/L BUN 9 (7-17) mg/dL Creatinine 1.03 H (0.7-1.0) mg/dL Estim Creat Clear Calc 36 ml/min Estimated GFR 52 L (59 - ) Glucose 111 H (65-110) mg/dL Serum Osmolality Lactic Acid 1.1 (0.7-2.0) mmol/L Uric Acid 3.5 (2.5-7.5) mg/dL Calcium 8.7 (8.4-10.2) mg/dL Phosphorus 2.8 (2.5-4.5) mg/dL Magnesium 2.1 (1.6-2.3) mg/dL Total Bilirubin 0.6 (0.2-1.3) mg/dL AST 28 (14-36) U/L ALT 19 (6-35) U/L Alkaline Phosphatase 116 (38-126) U/L Total Creatine Kinase 76 (30-135) U/L Troponin I 0.022 (0.000-0.034) ng/mL NT-Pro-B Natriuret Pep 939 H (19.9-100) pg/mL Total Protein 6.7 (6.3-8.2) g/dL Albumin 3.9 (3.5-5.1) g/dL Lipase 129 (23-300) U/L TSH 18.800 H (0.465-4.680) uIU/mL TSH (Reflex) 19.000 H (0.465-4.68) uIU/mL Free T4 1.81 (0.78-2.19) ng/dL Total T3 0.46 L (0.82-1.58) NG/ML Random Cortisol 24.10 ug/dL Urine Color Yellow (Yellow) Urine Appearance Clear (Clear) Urine pH 5.5 (5.0-9.0) Ur Specific [place] 1.016 (1.001-1.035) Urine Protein 1+ H (Negative) mg/dL Urine Glucose (UA) Negative (Negative) mg/dL Urine Ketones Trace H (Negative) mg/dL Ur Blood (Man) Negative (Negative) Urine Nitrate Negative (Negative) Urine Bilirubin Negative (Negative) Urine Urobilinogen 0.2 (<2.0) mg/dL Add Ur Microanalysis Reviewed Leukocyte Esterase Rfl Negative (Negative) AKIL/UL Urine RBC 3-5 H (0-2) /hpf Urine WBC 0-5 (0-3) /hpf Ur Squamous Epith Cells None seen (Few) /hpf Urine Bacteria None seen /hpf Urine Casts 3-5 Ur Random Sodium 9 meq/L Ur Random Urea 521 MG/DL Urine Creatinine 198.4 mg/dL Nasal MRSA (PCR) (NOT DETECTE) Salicylates < 1.0 L (2-20) mg/dL Urine Opiates Screen Negative (Negative) Urine Methadone Screen Negative (Negative) Acetaminophen < 10 L (10-30) ug/mL Ur Barbiturates Screen Negative (Negative) Ur Phencyclidine Scrn Negative (Negative) Ur Amphetamine Screen Negative (Negative) U Benzodiazepines Scrn Negative (Negative) Urine Cocaine Screen Negative (Negative) U Cannabinoids Screen Negative (Negative) Ethyl Alcohol < 10 (<10) mg/dL Influenza A (RT-PCR) Negative (Negative) Influenza B (RT-PCR) Negative (Negative) RSV (RT-PCR) Negative (Negative) SARS-CoV-2 RNA (RT-PCR) Negative (Negative) 03/17/25 03/17/25 03/17/25 Range/Units 01:31 01:55 04:31 WBC (4.5-10.0) K/mm3 RBC (4.2-5.4) M/mm3 Hgb (12.0-15.0) g/dL Hct (37.0-47.0) % MCV (80-100) fl MCH (26-34) pg MCHC (32-36) g/dl RDW (11.5-14.5) % Plt Count (150-375) k/mm3 MPV (7.4-10.4) fl Immature Gran % (Auto) (0-0.5) % Neut % (Auto) (45.5-73.1) % Lymph % (Auto) (18.3-44.2) % Nolan % (Auto) (2.6-8.5) % Eos % (Auto) (0-4.4) % Baso % (Auto) (0.2-1.2) % Lymph # (Auto) (0.9-3.2) K/mm3 Nolan # (Auto) (0.1-0.6) K/mm3 Eos # (Auto) (0-0.3) K/mm3 Baso # (Auto) (0.0-0.1) K/mm3 Abs Immat Gran (auto) (0.00-0.031) K/mm3 Absolute Neuts (auto) (1.3-6.7) K/mm3 Absolute Nucleated RBC (0.0-0.012) K/mm3 Nucleated RBC % (0.0-0.2) % PT (11.1-14.7) Seconds INR APTT (22.3-36.8) Seconds Sodium 117 L* 122 L (137-145) mmol/L Potassium (3.4-5.0) mmol/L Chloride (98-107) mmol/L Carbon Dioxide (22-30) mmol/L Anion Gap (4-12) mmol/L BUN (7-17) mg/dL Creatinine (0.7-1.0) mg/dL Estim Creat Clear Calc ml/min Estimated GFR (59 - ) Glucose (65-110) mg/dL Serum Osmolality Pending Lactic Acid (0.7-2.0) mmol/L Uric Acid (2.5-7.5) mg/dL Calcium (8.4-10.2) mg/dL Phosphorus (2.5-4.5) mg/dL Magnesium (1.6-2.3) mg/dL Total Bilirubin (0.2-1.3) mg/dL AST (14-36) U/L ALT (6-35) U/L Alkaline Phosphatase (38-126) U/L Total Creatine Kinase (30-135) U/L Troponin I (0.000-0.034) ng/mL NT-Pro-B Natriuret Pep (19.9-100) pg/mL Total Protein (6.3-8.2) g/dL Albumin (3.5-5.1) g/dL Lipase (23-300) U/L TSH (0.465-4.680) uIU/mL TSH (Reflex) (0.465-4.68) uIU/mL Free T4 (0.78-2.19) ng/dL Total T3 (0.82-1.58) NG/ML Random Cortisol ug/dL Urine Color (Yellow) Urine Appearance (Clear) Urine pH (5.0-9.0) Ur Specific [place] (1.001-1.035) Urine Protein (Negative) mg/dL Urine Glucose (UA) (Negative) mg/dL Urine Ketones (Negative) mg/dL Ur Blood (Man) (Negative) Urine Nitrate (Negative) Urine Bilirubin (Negative) Urine Urobilinogen (<2.0) mg/dL Add Ur Microanalysis Leukocyte Esterase Rfl (Negative) AKIL/UL Urine RBC (0-2) /hpf Urine WBC (0-3) /hpf Ur Squamous Epith Cells (Few) /hpf Urine Bacteria /hpf Urine Casts Ur Random Sodium meq/L Ur Random Urea MG/DL Urine Creatinine mg/dL Nasal MRSA (PCR) Not detected (NOT DETECTE) Salicylates (2-20) mg/dL Urine Opiates Screen (Negative) Urine Methadone Screen (Negative) Acetaminophen (10-30) ug/mL Ur Barbiturates Screen (Negative) Ur Phencyclidine Scrn (Negative) Ur Amphetamine Screen (Negative) U Benzodiazepines Scrn (Negative) Urine Cocaine Screen (Negative) U Cannabinoids Screen (Negative) Ethyl Alcohol (<10) mg/dL Influenza A (RT-PCR) (Negative) Influenza B (RT-PCR) (Negative) RSV (RT-PCR) (Negative) SARS-CoV-2 RNA (RT-PCR) (Negative) ABG Data ABG results: 03/16/25 22:43 VBG pH 7.437 H* VBG pCO2 47.5 VBG pO2 29.5 L VBG HCO3 31.3 H O2 Delivery Device Not Reportable O2 Liters/Min Not Reportable FiO2 21 Imaging Data Radiologist's impression: ITS Impressions Head CT 03/17/25 06:09 IMPRESSION: 1. No acute intracranial findings. Chest/Abdomen/Pelvis CTA 03/17/25 06:31 IMPRESSION: 1. No pulmonary embolus. 2. Mild pulmonary edema. 3. Mild airspace opacities in right upper lobe and right middle lobe, consistent with atelectasis versus pneumonia. Thoracic/Lumbar Spine CT 03/17/25 06:57 IMPRESSION: 1. No evidence of discitis/osteomyelitis. 2. Severe thoracic and lumbar spondylosis. 3. Scoliosis. 4. Anterior fusion procedure in cervical spine. ECG Data EKG #1: Attestation: I personally reviewed and interpreted this ECG as follows: ECG completion date: 03/16/25 ECG completion time: 23:08 Interpretation: Rate of 78, indeterminate supraventricular rhythm, incomplete right bundle-branch block, no ST elevations, borderline ST depressions in leads V4 and V5, nonspecific T-wave abnormalities, QTC is 362 milliseconds, QRS duration is 112 milliseconds. Critical Care Time Critical Care Time Critical Care Time: Yes Indication: TIN STACKER compromise, sepsis, hypokalemia, hyponatremia, ANDREIA. Time Type: Intermittent Initial evaluation, discuss w/ involved parties, attempting to gather old records: 20 minutes Documenting medical record: 15 minutes Review of results (EKG's, labs, imaging): 10 minutes Serial repeat bedside evaluation: 20 minutes Discussing case with multiple memebers of the care team and consultants: 10 minutes Total Critical Care Time: 75 Discharge Plan Discharge Clinical Impression: Altered mental status, Hyponatremia, Hypokalemia, Anemia, Sepsis, Alkalosis, metabolic, ANDREIA (acute kidney injury), Elevated brain natriuretic peptide (BNP) level, Hypothyroidism, History of endocarditis, History of cardioembolic cerebrovascular accident (CVA), History of coronary artery bypass graft, History of discitis, History of osteomyelitis, History of mitral valve repair, Hypoxia Patient Disposition: Still a Patient Condition: Serious Patient Language: Nepali Prescriptions: No Action methotrexate sodium 2.5 mg tablet See Rx Instructions PO WEEKLY Rx Instructions: 8 pills orally weekly; olmesartan 40 mg tablet 40 mg PO DAILY magnesium oxide 250 mg magnesium tablet 250 mg PO DAILY alendronate [Fosamax] 70 mg tablet 70 mg PO WEEKLY ascorbic acid (vitamin C) 500 mg capsule 1,000 mg PO DAILY acetaminophen 500 mg tablet 500 mg PO Q6H PRN (Reason: pain) daptomycin 500 mg recon soln 500 mg IV DAILY Patient Comments: 21 days Rx Instructions: administer over 30 mins diclofenac sodium 1 % gel 2 g topical TID PRN (Reason: pain) Rx Instructions: apply to single elbow, wrist or hand; for hand includes palm/fingers/back of hand ferrous sulfate [iron] 325 mg (65 mg iron) tablet 325 mg PO DAILY Rx Instructions: with breakfast lidocaine [Lidocaine Pain Relief] 4 % adhesive patch,medicated 3 patch topical DAILY Rx Instructions: may leave on for up to 12 hrs zinc gluconate 50 mg tablet 50 mg PO DAILY cholecalciferol (vitamin D3) [Vitamin D3] 25 mcg (1,000 unit) Tablet 2,000 unit PO DAILY nystatin 100,000 unit/gram Powder 1 applic topical Q12HR Qty: 15 0RF Saline Mist 0.65 % Aerosol,[place] 1 spray intranasal Q2H PRN (Reason: Dry Nasal Passages) Qty: 0 0RF furosemide [Lasix] 40 mg tablet 40 mg PO DAILY Qty: 30 0RF methocarbamol 500 mg tablet 500 mg PO BID Qty: 60 0RF trazodone 50 mg tablet 25 mg PO QHS Qty: 30 0RF amiodarone 200 mg tablet 200 mg PO DAILY Qty: 30 0RF meloxicam 15 mg tablet 15 mg PO DAILY Qty: 30 0RF amlodipine 5 mg tablet 5 mg PO DAILY Qty: 30 0RF levothyroxine [Levoxyl] 75 mcg tablet 75 mcg PO DAILY Qty: 30 0RF pantoprazole 40 mg tablet,delayed release (DR/EC) 40 mg PO QAM Qty: 30 0RF gabapentin 100 mg capsule 100 mg PO BID Qty: 60 0RF hydroxychloroquine 200 mg tablet 400 mg PO 3XW Qty: 12 0RF hydroxychloroquine [Plaquenil] 200 mg tablet 200 mg PO 4XW Qty: 16 0RF metoprolol tartrate 25 mg tablet 12.5 mg PO BID Qty: 60 0RF duloxetine 30 mg capsule,delayed release(DR/EC) 30 mg PO DAILY Qty: 30 0RF apixaban 5 mg tablet 5 mg PO Q12H Qty: 60 0RF sodium chloride 1,000 mg Tablet,Soluble 1,000 mg PO QAM Qty: 10 0RF carvedilol [Coreg] 12.5 mg Tablet 25 mg PO Q12HR Qty: 30 0RF aspirin [Children's Aspirin] 81 mg Tablet,Chewable 81 mg PO DAILY@0800 Qty: 30 0RF folic acid 1 mg Tablet 1 mg PO DAILY Qty: 30 0RF Gemtesa 75 mg Tablet 75 mg PO DAILY Qty: 30 0RF Follow-up/Referrals: Harms,Pascual Aldridge M.D. [Primary Care Provider] Time of Disposition: 07:02 Quality Stroke Date of last known normal: 03/16/25 Stroke Scale Stroke Scale 1: Stroke scale date:: 03/16/25 Stroke scale time:: 22:04 1a Level of consciousness: alert-0 1b Level of consciousness questions: answers one correctly-1 1c Level of consciousness commands: obeys both correctly-0 2 Best gaze: normal-0 3 Visual: no visual loss-0 4 Facial palsy: normal-0 5a Motor: left arm: no drift-0 5b Motor: right arm: no drift-0 6a Motor: left leg: no drift-0 6b Motor: right leg: no drift-0 7 Limb ataxia: absent-0 8 Sensory: normal-0 9 Best language: no aphasia-0 10 Dysarthria: normal-0 11 Extinction and inattention: no abnormality-0 Level:: 1
--- NOTE | 2025-03-16 22:37 | PC.NURSE ---
While doing urine straight cath patient was incont small amount dark caceres/brown stool-pericare done. Noted bruised area to left aleisha/lower buttock -patient reports that she fell earlier today.
[2025-03-16 22:47] LABS: Fractional Inspired Oxygen 21 %; HCO3 VBG 31.3 mEq/l (24.0-30.0); PCO2 VBG 47.5 mmHg (42.0-48.0); PO2 VBG 29.5 mmHg (35.0-45.0)
[2025-03-16 22:50] LABS: pH VBG 7.437 (7.300-7.400)
[2025-03-16 22:56] LABS: Hematocrit 24.2 % (37.0-47.0); Hemoglobin 8.4 g/dL (12.0-15.0); Immature Granulocyte Percent A 0.8 % (0-0.5); Lymphocytes Absolute Auto 1.24 K/mm3 (0.9-3.2); Mean Corpuscular HGB Conc 34.7 g/dl (32-36); Mean Corpuscular Hemoglobin 31.9 pg (26-34); Mean Corpuscular Volume 92.0 fl (80-100); Nucleated Red Blood Cells Absolute Auto 0.000 K/mm3 (0.0-0.012); Nucleated Red Blood Cells Perc 0.0 % (0.0-0.2); Platelet Count Result 260 k/mm3 (150-375); Red Blood Count 2.63 M/mm3 (4.2-5.4); White Blood Count 11.7 K/mm3 (4.5-10.0)
[2025-03-16 23:01] LABS: Acetaminophen < 10 ug/mL (10-30); Salicylate < 1.0 mg/dL (2-20)
[2025-03-16 23:02] LABS: INR 1.3; Prothrombin Time 16.7 Seconds (11.1-14.7)
[2025-03-16 23:03] LABS: Partial Thromboplastin Time 37.3 Seconds (22.3-36.8)
[2025-03-16 23:05] LABS: Add Urine Microscopic? YES; Appearance Urine Clear (Clear); Glucose Urine UA Negative (Negative); Leukocyte Esterase Ur Negative LEU/UL (Negative); Need Manual Microscopic Reviewed; Nitrate Urine Negative (Negative); Specific Grav Ur 1.016 (1.001-1.035)
[2025-03-16 23:10] LABS: Cannabinoid Screen Urine Negative (Negative)
[2025-03-16] MEDS: SODIUM CHLORIDE 0.9% IV 1,000 ML 150 ML IV CONT (23:11)
[2025-03-16 23:13] LABS: Alanine Aminotransferase 19 U/L (6-35); Albumin Level 3.9 g/dL (3.5-5.1); Alkaline Phosphatase 116 U/L (38-126); Anion Gap 4 mmol/L (4-12); Aspartate Amino Transferase 28 U/L (14-36); Bilirubin,Total 0.6 mg/dL (0.2-1.3); Blood Urea Nitrogen 9 mg/dL (7-17); Calcium 8.7 mg/dL (8.4-10.2); Carbon Dioxide 32 mmol/L (22-30); Chloride 84 mmol/L (98-107); Creatine Kinase 76 U/L (30-135); Estimated CRCL calculation 36 ml/min; Estimated Glomerular Filt Rate 52; Glucose 111 mg/dL (65-110); Lipase 129 U/L (23-300); Magnesium 2.1 mg/dL (1.6-2.3); Potassium 2.7 mmol/L (3.4-5.0); Sodium 120 mmol/L (137-145); Total Protein 6.7 g/dL (6.3-8.2)
[2025-03-16 23:17] LABS: NT Pro B Type Natriuretic Pept 939 pg/mL (19.9-100); Troponin I 0.022 ng/mL (0.000-0.034)
--- OUTSIDE RECORDS SUMMARY | 2025-03-16 23:25 | XMS_ITS | Encounter Summary ---
Author Organization [facility] Address [address] [place] [address] Care Team Providers Care Manager Food Beverage Name Role Phone Unavailable Primary Care Provider Unavailabl e Encounter Details Date Type Department Care Team (Late st Contact Info) Description 09/04/2023 Lab Requisition [facility] - DermPath Lab [address] [place] [phone] Randy Ferris Jr., MD [address] [place] [address] Social History Tobacco Use Types Packs/Day Years Used Date Smoking Tobacco: Never Assessed Comments Unknown Sex and Gender Information Value Date Recorded Sex Assigned at Not on file Legal Sex Female 12:10 PM CDT Gender Identity Not on file Sexual Orientation Not on file documented as of this encounter Plan of Treatment Not on file documented as of this encounter Procedures Procedure Name Priority Date/Time Associated Diagnosis Comments DERMATOPATHOLOGY Routine 09/03/2023 3:33 AM CDT documented in this encounter Results * DERMATOPATHOLOGY (09/03/2023 3:33 AM CDT) Case Report Dermatopathology Report Case: [id number] Authorizing Provider: Randy Ferris Jr., MD Collected: 09/03/2023 03:33 AM Ordering Location: [facility] - Received: 09/04/2023 12:28 PM DermPath Lab Pathologist: Vivien Barboza MD Specimen: Skin, left central mandibular cheek 1:57 PM CDT DERMATOPATHOLOGY LABORATORY Final Diagnosis Specimen A. SKIN, left central mandibular cheek: ACTINIC KERATOSIS, PIGMENTED (L57.0) 1:57 PM CDT DERMATOPATHOLOGY LABORATORY at 1357 CDT Clinical History Lentigo vs Lentigo Maligna vs Seborrheic Keratosis 1:57 PM CDT DERMATOPATHOLOGY LABORATORY Gross Description Specimen A: Received is one formalin filled container labeled with the patient's name and designated left central mandibular cheek. The specimen consists of a shave biopsy measuring 7x4x1 mm. Jar 0. 1:57 PM CDT DERMATOPATHOLOGY LABORATORY Microscopic Description Specimen A. SKIN, left central mandibular cheek: There is alternating orthokeratosis and parakeratosis. Along the undersurface of the epidermis, there are buds of atypical keratinocytes in a disorderly arrangement. There is prominent pigmentation in some of the keratinocytes. 1:57 PM CDT DERMATOPATHOLOGY LABORATORY Disclaimer An external and internal positive and negative controls are appropriate for the histochemical, immunohistochemical and immunofluorescence stain(s) in this case (if any), except where stated explicitly. The performance characteristics of the stain(s) cited in this report were developed and its performance characteristic determined by the Dermatopathology Laboratory at [facility], directed by Dr. Dimas Barboza. These tests need not be, and therefore are not, approved by the [place] Food and Drug Administration. The tests are used for clinical purposes. Billing Codes Specimen Charges Stain Charges 07254 1 1:57 PM CDT DERMATOPATHOLOGY LABORATORY Embedded Images 1:57 PM CDT DERMATOPATHOLOGY LABORATORY Pathology/Cytolo gy TISSUE SPECIMEN FROM SKIN / Unknown 09/03/2023 3:33 AM CDT 09/04/2023 12:28 PM CDT us Randy Ferris Jr., MD LAB - PATHOLOGY/CYTOLOG Y ORDERABLES Final Result DERMATOPATHOLOGY LABORATORY [facility] - Department of Dermatology [address], [address] Floor [address] [phone] documented in this encounter Visit Diagnoses Not on filedocumented in this encounter
--- OUTSIDE RECORDS SUMMARY | 2025-03-16 23:25 | XMS_ITS | Encounter Summary ---
Author Organization [facility] Healthcare Address [address] [place] [address] Care Team Providers Care Direct Marketing Coordinator Name Role Phone Pascual Connor MD Primary Care Provider [phone] Jenifer Quezada PT Unavailable Unavaila ble Encounter Details Date Type Department Care Team (Late st Contact Info) Description 03/15/2025 Telephone [facility] [address] [place] [id number] [facility] Social History Tobacco Use Types Packs/Day Years [...] often do you attend chur ch or evangelical services? More than 4 times per year 02/08/2022 Do you belong to any clubs o r organizations such as christianity groups, unions, fraternal or athletic groups, or [...] place to sleep or slept in a [place] health care facility (including now)? No 02/08/2022 Social Connection and Isolation Panel Answer Date Recorded In a typical week, how many times do you talk on the phone with family, friends, or neighbors? More than three times a week 01/10/2025 How often do you get togethe r with friends or relatives? More than three times a week 01/10/2025 How often do you attend chur ch or evangelical services? More than 4 times per year 01/10/2025 Do you belong to any clubs o r organizations such as christianity groups, unions, fraternal or athletic groups, or [...] any time in the past 12 m [facility], were you homeless or living in a [place] health care facility (including now)? No 01/10/2025 [facility] Utilities Answer Date Recorded In the [...] on file Legal Sex Female 3:05 PM ARMED SECURITY GUARD Gender Identity Not on file Sexual Orientation Not on file documented as of this encounter Miscellaneous Notes * Telephone Encounter - Manuel Bangganesh [facility] - 03/15/2025 12:13 PM ARMED SECURITY GUARD Images from the original note were not included. Infectious Diseases ID OPAT Progress/Monitoring Note General Info General Information OPAT Program: Non ORTIZ ID Team: Gen ID 4 Responsible ID Provider: Cody Antibiotic Indication: Endocarditis, Vertebral OM/Epidural abscess Antibiotics start date: 02/03/25 Antibiotics start date reason: Date of last spinal imaging Firm stop: No Antibiotics anticipated stop date: 03/03/25 Pathogens: Strep agalactiae Retained Infected Hardware : yes Infected Hardware Details: Cervical spine Fax Labs To: [facility] ID [facility] ([phone]) Call For a Change in Clinical Status, Critical/Abnormal Results, or Order Verification: [facility] ([phone]) Imaging Recommended Before Follow-up: MRI total spine with contrast Imaging expected date: TBD Recommended Clinic Follow-up: At the end of therapy/Within 1-2 weeks of discharge Antimicrobials Antimicrobials Antimicrobials A-L: Ertapenem Antimicrobial Routes Ertapenem Route: Infusion Parenteral Antimicrobials Ertapenem Dose: 1 g Ertapenem Frequency: Every 24 hours Care Coordination Care Coordination OPAT Start Date: 02/10/25 Discharge Location: SNF/Rehab SNF/Rehab Location - Other Details: [facility] in [place], [place] [phone] Access: PICC Care Coordination Issues: Routine lab review Internal Labs OPAT Internal Labs (Last 10 results in 3 years) Date/Time WBC ANC EOS CBC CREATININE AST ALT VANCOMYCIN SED RATE CRP 03/02/252011 -- -- -- -- 1.10 71 46 -- -- -- 03/02/252011 10.65 -- -- -- -- -- -- -- -- -- 03/02/255 11.34 -- -- -- -- -- -- -- -- -- 03/02/25 1515 -- -- -- -- 1.04 68 42 -- -- -- 02/10/255 4.69 -- -- -- -- -- -- -- -- -- 02/10/255 -- -- -- -- 0.95 -- -- -- -- -- 02/09/25 0528 3.61 -- -- -- -- -- -- -- -- -- 02/08/252133 -- -- -- -- 0.82 -- -- -- -- -- 02/08/252133 -- -- -- -- -- -- -- -- 02/07/252124 -- -- -- -- 0.95 -- -- -- -- -- External Labs Lab Monitoring CR: 0.8 AST: 14 ALT: 12 CK: 61 Monitoring/Events Adverse Events Antibiotic adverse event requiring action: No adverse event requiring action Action: No action taken (no abnormality) Comments OPAT Comments Reviewed 03/15 labs. Stable. CBC w/ diff still pending - will f/u later this week. CK continues to downtrend after stopping daptomycin. Will continue to monitor. Time Spent Time Spent Time Spent: 15 Time Spent Role : Pharmacist D SECURITY GUARD documented in this encounter Plan of Treatment Not on file documented as of this encounter Visit Diagnoses Not on filedocumented in this encounter Care Teams Direct Marketing Coordinator Relationship Specialty Start Date End Date Pascual Connor MD [address] [place] [address] PCP - General Family Medicine 10/04/19 Jenifer Quezada, PT Physical Therapist Physical Therapy 08/02/21 documented as of this encounter
--- OUTSIDE RECORDS SUMMARY | 2025-03-16 23:25 | XMS_ITS | Encounter Summary ---
Author Organization [facility] Healthcare Address [address] [place] [address] Care Team Providers Care Tree Topper Name Role Phone Pascual Connor MD Primary Care Provider [phone] Jenifer Quezada PT Unavailable Unavaila [facility] Sera Muñoz RN Unavailable [phone] Kate Lock RN Unavailable [phone] Kate Lock RN Unavailable [phone] Encounter Details Date Type Department Care Team (Late st Contact Info) Description 02/18/2022 Telephone [facility] [address] [place] [address] Braulio Tapia MD [address] [place] [address] Social History Tobacco Use Types Packs/Day Years Used Date Smoking Tobacco: Never Smokeless Tobacco: Never Alcohol Use Standard Drinks/Week Comments No 0 (1 standard drink = 0.6 oz pur e alcohol) Social Connection and Isolation Panel Answer Date Recorded In a typical week, how many times do you talk on the phone with family, friends, or neighbors? Three times a week 02/08/2022 How often do you get togethe r with friends or relatives? Twice a week 02/08/2022 How often do you attend [facility] or spiritism services? More than 4 times per year 02/08/2022 Do you belong to any clubs o r organizations such as judaism groups, unions, fraternal or athletic groups, or school groups? Yes 02/08/2022 How often do you attend meet ings of the clubs or organizations you belong to? More than 4 times per year 02/08/2022 Are you , , di vorced, , never , or living with a partner? 02/08/2022 AUDIT-C Answer Date Recorded Frequency of Alcohol Consumption Not on file 01/21/2022 Q2: How many drinks containi ng alcohol do you have on a typical day when you are drinking? Patient does not drink Frequency of Binge Drinking Not on file 01/12 Overall Financial Resource Strain (CARDIA) Answe r Date Recorded How hard is it for you to pa y for the very basics like food, housing, medical care, and heating? Not hard at all 02/08/2022 PHQ-2 Answer Date Recorded PHQ-2 Total Score 2 02/08/2022 Hunger Vital Sign Answer Date Recorded Within the past 12 months, y ou worried that your food would run out before you got the money to buy more. Never true 02/09/20 22 Within the past 12 months, t he food you bought just didn't last and you didn't have money to get more. Never true 02/08/2022 PRAPARE - Transportation Answer Date Re corded [...] place to sleep or slept in a nursing home (including now)? No 02/08/2022 Comments No Sex and Gender Information Value Date Recorded Sex Assigned at Not on file Legal Sex Female 3:05 PM PRN OCCUPATIONAL THERAPIST Gender Identity Not on file Sexual Orientation Not on file documented as of this encounter Plan of Treatment Not on file documented as of this encounter Visit Diagnoses Not on filedocumented in this encounter Additional Health Concerns Infection Onset Date Last Indicated Resolved Time COVID: Suspected 04/03/2022 04/03/2022 04/03/2022 10:13 AM PRN OCCUPATIONAL THERAPIST COVID: Suspected 12/28/2024 12/28/2024 12/28/2024 7:38 PM CDT Ring Surveillance: C. auris 02/03/2025 02/03/2025 02/08/2025 9:50 PM CDT documented as of this encounter Care Teams Tree Topper Relationship Specialty Start Date End Date Pascual Connor MD [address] [place] [address] PCP - General Family Medicine 10/04/19 Jenifer Quezada, PT Physical Therapist Physical Therapy 08/02/21 Sera Muñoz RN [address] [place] [address] DR ABARCA [address] [place] [id number] Hot Metal Car Operator 08/08/21 09/05/22 Kate Lock RN [address] [place] [address] DR ABARCA [address] [place] [id number] Hot Metal Car Operator 08/21/22 08/28/22 Kate Lock RN [address] [place] [address] DR ABARCA [address] [place] [id number] Hot Metal Car Operator 08/29/22 09/05/22 documented as of this encounter
--- OUTSIDE RECORDS SUMMARY | 2025-03-16 23:25 | XMS_ITS | Encounter Summary ---
Author Organization [facility] Address [address] [place] [address] Phone Care Team Providers Care Commercial Lines Assistant Name Role Phone Pascual Connor MD Primary Care Provider [phone] Jenifer Quezada PT Unavailable Unavaila ble Encounter Details Date Type Department Care Team (Late st Contact Info) Description 02/22/2025 Telephone [facility] Medicine Infectious Diseases [address] [place] [address] [place] [phone] Sudha Leyva RMA Social History Tobacco Use Types Packs/Day Years [...] often do you attend chur ch or scientologist services? More than 4 times per year 02/08/2022 Do you belong to any clubs o r organizations such as holiness groups, unions, fraternal or athletic groups, or [...] place to sleep or slept in a longterm (including now)? No 02/08/2022 Social Connection and Isolation Panel Answer Date Recorded In a typical week, how many times do you talk on the phone with family, friends, or neighbors? More than three times a week 01/10/2025 How often do you get togethe r with friends or relatives? More than three times a week 01/10/2025 How often do you attend chur ch or scientologist services? More than 4 times per year 01/10/2025 Do you belong to any clubs o r organizations such as holiness groups, unions, fraternal or athletic groups, or school groups? Yes 01/10/2025 How often do you attend meet ings of the clubs or organizations you belong to? More than 4 times per year 01/10/2025 Are you , , di vorced, , never , or living with a partner? 01/10/2025 AUDIT-C Answer Date Recorded Q1: How often do you have a drink containing alcohol? Never 01/17/2025 Q2: How many drinks containi ng alcohol do you have on a typical day when you are drinking? Patient does not drink Q3: How often do you have si x or more drinks on one occasion? Never 01/17/2025 Overall Financial Resource Strain (CARDIA) Answe r [...] any time in the past [address] [facility], were you homeless or living in a longterm (including now)? No 01/10/2025 [facility] Utilities Answer Date Recorded In the [...] on file Legal Sex Female 3:05 PM TAN ROOM SUPERVISOR Gender Identity Not on file Sexual Orientation Not on file documented as of this encounter Miscellaneous Notes * Telephone Encounter - Katey Bermudez RN - 02/22/2025 11:37 AM TAN ROOM SUPERVISOR Called and spoke with Ora concerning Carly's f/u appt at [facility]. She was told inpatient that she would have an MRI prior to f/u appointment but nothing has been scheduled yet. Informed her that I will work on getting that setup for them. Pt currently at rehab at [place] and facility is refusing totransport patient to appointments so they have had to cancel several. 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 Ora also states that if appt opens up at [facility] for the same day as MRI that would be more convenient but they will travel to [facility] if needed. ROOM SUPERVISOR * Telephone Encounter - Sudha Leyva RMA - 02/22/2025 9:23 AM CST Ora-has questions re Carly's spinal Bacterial infection and an XR. Please call [phone] ROOM SUPERVISOR documented in this encounter Plan of Treatment Not on file documented as of this encounter Visit Diagnoses Not on filedocumented in this encounter Care Teams Commercial Lines Assistant Relationship Specialty Start Date End [place] [address] PCP - General Family Medicine 10/04/19 Jenifer Quezada, PT Physical Therapist Physical Therapy 08/02/21 documented as of this encounter
--- OUTSIDE RECORDS SUMMARY | 2025-03-16 23:25 | XMS_ITS | Encounter Summary ---
Author Organization [facility] Healthcare Address [address] [place] [address] Care Team Providers Care Quill Collector Name Role Phone Pascual Connor MD Primary Care Provider [phone] Jenifer Quezada PT Unavailable Unavaila ble Reason for Visit * Reason Onset Date Comments Medical Question/Miscellaneous 03/01/2025 Encounter Details Date Type Department Care Team (Late st Contact Info) Description 03/01/2025 Telephone [facility] [address] [address] Pascual Connor MD [address] [place] [address] Medical Question/Miscellaneous Social History Tobacco Use Types Packs/Day Years [...] any clubs o r organizations such as gnosticism groups, unions, fraternal or athletic groups, or [...] place to sleep or slept in a [facility] (including now)? No 02/08/2022 Social Connection and [...] any clubs o r organizations such as gnosticism groups, unions, fraternal or athletic groups, or [...] any time in the past 12 m [facility], were you homeless or living in a [facility] (including now)? No 01/10/2025 [facility] Utilities Answer Date Recorded In the past 12 months has e [place], gas, oil, or water [place] threatened to shut off services in your home? No 01/10/2025 Personal Safety Answer Date Recorded Have you ever been in or are you currently in a harmful physical or emotional relationship or is someone making you feel afraid or unsafe? Denies 01/17/2025 Comments No Sex and Gender Information Value Date Recorded Sex Assigned at Not on file Legal Sex Female 3:05 PM MARINE EQUIPMENT ENGINEER Gender Identity Not on file Sexual Orientation Not on file documented as of this encounter Functional Status * BP Location Answer Date of Assessment Author Right arm 03/02/2025 1:06 PM MARINE EQUIPMENT ENGINEER [place], Apr [place], BOOT LINER MAKER * Alcohol Use Question Answer Date of Assessment Author Q2: How many drinks containing alcohol do you have on a typical day when you are drinking? Patient does not drink 03/02/2025 1:07 PM MARKOS Grady, July, SHYANNE * BP Location Answer Date of Assessment Author Right arm 03/02/2025 1:06 PM Sharda López, SHYANNE documented as of this encounter Miscellaneous Notes * Telephone Encounter - Aneta Hare - 03/02/2025 2:19 PM CST Medical Question/Miscellaneous Caller???s Concern: called stating her mom should not have been discharged to home from [facility] She needs to be at [facility] but they are waiting on the paperwork from Dr Connor and then they can get her in as soon as today Please advise Thank you Does message need to be routed? Yes-Action Needed NE EQUIPMENT ENGINEER * Telephone Encounter - Donna Hardy - 03/02/2025 11:08 AM CST Rec'd and gave to [place]. NE EQUIPMENT ENGINEER * Telephone Encounter - Lani Chino MA - 03/02/2025 10:16 AM CST tom GARCIAen gabriela will be faxing over paperwork NE EQUIPMENT ENGINEER * Telephone Encounter - Joann Soto - 03/02/2025 10:06 AM CST Medical Question/Miscellaneous Caller???s Concern: Radha with [facility] called stating patient's daughter is wanting to get patient into their facility today as she isn't doing good. Radha is faxing over an order form that she needs signed and dated with today's date so they can get patient in. Does message need to be routed? Yes-Action Needed NE EQUIPMENT ENGINEER * Telephone Encounter - Guy Mojica - 03/01/2025 2:22 PM CST Medical Question/Miscellaneous Caller???s Concern: daughter Ora calling to inquire about [facility]. [facility], and before that she was at [facility] for 9 weeks. Pt had HH set up 2-3 days a week, but pt's daughter believes she needs time study engineer care. Her instructions say from [facility] that if pt is not thriving after 21days of discharge she can go to [facility] and pts daughter who lives in [place] is trying to get her in there, she isnt sure if she needs a referral from Dr Connor or anytthing from him. Requesting a call back to discuss Does message need to be routed? Yes-Action Needed NE EQUIPMENT ENGINEER documented in this encounter Plan of Treatment Not on file documented as of this encounter Visit Diagnoses Not on filedocumented in this encounter Care Teams Quill Collector Relationship Specialty Start Date End Date Pascual Connor MD [address] [place] [address] PCP - General Family Medicine 10/04/19 Jenifer Quezada, PT Physical Therapist Physical Therapy 08/02/21 documented as of this encounter
--- OUTSIDE RECORDS SUMMARY | 2025-03-16 23:25 | XMS_ITS | Encounter Summary ---
Author Organization [facility] Healthcare Address [address] [place] [address] Care Team Providers Care Associate Professor Plant Pathology Name Role Phone Pascual Connor MD Primary Care Provider [phone] Jenifer Quezada PT Unavailable Unavaila ble Encounter Details Date Type Department Care Team (Late st Contact Info) Description 01/13/2025 Documentation [facility] Case Management [address] [place] [address] Connie Lancaster, ANGELICA Social History Tobacco Use Types Packs/Day Years [...] often do you attend chur ch or rastafari services? More than 4 times per year 02/08/2022 Do you belong to any clubs o r organizations such as rastafari groups, unions, fraternal or athletic groups, or [...] place to sleep or slept in a mcc (including now)? No 02/08/2022 Social Connection and Isolation Panel Answer Date Recorded In a typical week, how many times do you talk on the phone with family, friends, or neighbors? More than three times a week 01/10/2025 How often do you get togethe r with friends or relatives? More than three times a week 01/10/2025 How often do you attend chur ch or rastafari services? More than 4 times per year 01/10/2025 Do you belong to any clubs o r organizations such as rastafari groups, unions, fraternal or athletic groups, or [...] any time in the past 12 [facility], were you homeless or living in a mcc (including now)? No 01/10/2025 [facility] Utilities Answer Date Recorded In the [...] on file Legal Sex Female 3:05 PM [employer] Gender Identity Not on file Sexual Orientation Not on file documented as of this encounter Functional Status * Difference in Last Two Patrick Scores Answer Date of Assessment Author 0 01/16/2025 7:15 PM Kortney Rivas, ANGELICA * Chavez Fall Risk Question Answer Date of Assessment Author History of Falling 0 01/15/2025 11:00 PM CD T Kortney Polanco RN Secondary Diagnosis 15 01/15/2025 11:00 PM C DT Kortney Polanco RN Ambulatory Aids 15 01/15/2025 11:00 PM CDT Kortney Hargrove RN Intravenous Therapy/Heparin/Saline Lock 20 01/15/2025 11:00 PM ANNT Kortney Polanco RN Gait/Transferring 10 01/15/2025 11:00 PM CDT Kortney Polanco RN Mental Status 0 01/15/2025 11:00 PM CDT Kortney Velez RN Chavez Fall Risk Score (Score >= 45 places fall precaution order) 60 01/15/2025 11:00 PM CDT Kortney Polanco RN Prior Fall Event (Autopopulated from EMR) None found 01/15/2025 11:00 PM CDT Ree Polanco RN * Patrick Scale Question Answer Date of Assessment Author Sensory Perceptions 4 01/16/2025 7:15 PM CD T Kortney Polanco RN Moisture 3 01/16/2025 7:15 PM CDT Kortney Ness RN Activity 3 01/16/2025 7:15 PM CDT Kortney Ness RN Mobility 3 01/16/2025 7:15 PM CDT Kortney Ness RN Nutrition 3 01/16/2025 7:15 PM CDT Kortney Ness RN Friction and Shear 2 01/16/2025 7:15 PM CDT Kortney Polanco RN Patrick Scale Score 18 01/16/2025 7:15 PM CDT Kortney Polanco RN * Question Answer Date of Assessment Author BP Location Right arm 01/16/2025 8:35 PM CDT La Grady BP Method Automatic 01/16/2025 3:17 PM CDT Domenica Damian CNA MAP (mmHg) 83 01/16/2025 8:35 PM CDT La Grady * Fall Risk Interventions Question Answer Date of Assessment Author All Low Fall Interventions Applied Yes 01/15/2025 11:00 PM Kortney Rivas RN All Moderate Fall Interventions Applied Yes 01/15/2025 11:00 PM Kortney Rivas RN All Moderate Fall Risk Interventions EXCEPT: Gait belt at bedside;Remain with patient while toileting 01/14/2025 8:00 PM Jez Ruff All High Fall Risk Interventions Applied No 01/15/2025 11:00 PM Kortney Rivas RN All High Risk Interventions EXCEPT: Bed alarm;Chair alarm 01/15/2025 11:00 PM Kortney Rivas RN Additional Interventions Applied Over-bed table on non-exit side;Exit bed on strong/preferred side 01/15/2025 11:00 PM Kortney Rivas RN Reason For Exception(s) demonstrates pro per use of call light, uses bedside commode 01/14/2025 8:00 PM Jez Ruff Reason For Exception(s) patient has a pu rewick and intermittently incontinent 01/15/2025 11:00 PM Kortney Rivas RN * B.M.A.T. - Bedside Mobility Assessment Tool for Nurses Question Answer Date of Assessment Author Is patient able to participate in the BMAT? Yes 01/16/2025 10:06 PM Kortney Rivas RN BMAT Level Level 3 - Yellow 01/16/2025 10:0 6 PM Kortney Rivas RN Level 1 Equipment Use total lift with sling and/or repositioning sheet 01/14/2025 8:00 PM Jez Ruff Level 2 Equipment Use total lift for patient unable to weight-bear on at least one leg 01/15/2025 8:00 AM Arlette Harrell RN Level 3 Equipment Use non-powered stevie d aid;Use assistive device such as cane/walker 01/16/2025 10:06 PM Kortney Rivas RN * Pressure Injury Prevention Question Answer Date of Assessment Author Pressure Ulcer Prevention Interventions Keep skin clean and dry (Sensory Perception/Moisture) 01/16/2025 10:06 PM Kortney Rivas RN Special Mattress Low air loss and alternating pressure relief 01/14/2025 8:08 AM ANNT Petey Lora RN * Integumentary Question Answer Date of Assessment Author Skin Color Appropriate for ethnicity 01/16/2025 10:06 PM Kortney Rivas RN Skin Condition/Temp Warm;Dry 01/16/2025 1 0:06 PM Kortney Rivas RN Skin Integrity Bruising;Redness 01/16/2025 10:0 6 PM Kortney Rivas RN Skin Turgor Non-tenting 01/16/2025 10:06 PM Kortney Rivas RN Integumentary Additional Assessments Yes-Patrick 01/16/2025 10:06 PM Kortney Rivas RN Integumentary (WDL) X 01/16/2025 1 0:06 PM Kortney Rivas RN Skin Location BUE, abdomen, glutea l cleft 01/16/2025 10:06 PM Kortney Rivas RN * Fall TIPS Risk and Interventions Question Answer Date of Assessment Author Kathy Fall Risk Score 60 01/16/2025 7:00 PM Kortney Rivas RN Prior Fall Event (Autopopulated from EMR) 0=None found 01/16/2025 7:00 PM Kortney Rivas RN Points from History of Falling (including autopopulated) 0 01/16/2025 7:00 PM Kortney Rivas RN Scheduled Toileting Q4 hour scheduled toileting 01/16/2025 7:00 PM Kortney Rivas RN Scheduled Toileting Q4 hour scheduled toileting 01/16/2025 7:00 PM Kortney Rivas RN Additional Interventions Applied Low bed 01/16/2025 7:00 PM Kortney Rivas RN History of Falling 0 01/16/2025 7: 00 PM Kortney Rivas RN Medication Side Effects/Secondary Diagnosis 15 01/16/2025 7:00 PM Kortney Rivas RN Toileting Fall Interventions Frequent toileting, commode 01/16/2025 7:00 PM Kortney Rivas RN Ambulatory Aids 15 01/16/2025 7:00 PM Kortney Rivas RN Patient can sit up in bed and rise to standing position independently Yes 01/16/2025 7:00 PM Kortney Rivas RN Demonstrates use of assistive device without physical assistance or loss of balance No 01/16/2025 7:00 PM Kortney Rivas RN Intravenous Therapy/Heparin/Saline Lock 20 01/16/2025 7:00 PM Kortney Rivas RN Gait/Transferring 10 01/16/2025 7:0 0 PM Kortney Rivas RN Unsteady Walk Fall Interventions Assistance out of bed, 1 person 01/16/2025 7:00 PM Kortney Rivas RN Mental Status 0 01/16/2025 7:00 PM Kortney Rivas RN IV/Equipment Fall Interventions Frequent toileting, commode 01/16/2025 7:00 PM Kortney Rivas RN * ABCS of Harm Question Answer Date of Assessment Author Risk of Injury Yes 01/16/2025 9:00 AM Arlette Keen RN A - Age over 85 No 01/16/2025 9:00 AM Arlette Johns RN B- Bones No Risk 01/16/2025 9:00 AM Arlette Mendez RN C - Coagulation Receiving meds that increase bleeding risk 01/16/2025 9:00 AM Arlette Harrell RN S - Surgery (Recent) No Risk 01/16/2025 9:00 AM Arlette Chu RN * Question Answer Date of Assessment Author RUE Edema No pitting 01/16/2025 8:00 AM ANNT Arlette Andrade RN RLE Edema No pitting 01/16/2025 10:06 PM CDT Kortney Jordan RN LUE Edema No pitting 01/16/2025 8:00 AM ANNT Arlette Andrade RN LLE Edema No pitting 01/16/2025 10:06 PM CDT Kortney Jordan RN Edema Right lower extremit y;Left lower extremity 01/16/2025 10:06 PM CDT Kortney Polanco RN * Question Answer Date of Assessment Author Affect Calm 01/16/2025 10:06 PM CDT Kortney Jordan RN Mood Content 01/16/2025 10:06 PM CDT Kortney Jordan RN * Question Answer Date of Assessment Author Percent Meal Eaten (%) 25 01/16/2025 11:00 A M ANNT Arlette Duran RN Feeding Level of Assistance Able to feed self 01/16/2025 11:00 AM Arlette Harrell RN Appetite Refused meal 01/16/2025 11:00 AM ANNT Arlette Hicks RN Percent Snack Eaten (%) 0 01/16/2025 11:00 AM ANNT Arlette Duran RN Diet Supplement Name/Percent Consumed % Thrive/0 01/16/2025 11:00 AM CDT González Duran RN * Question Answer Date of Assessment Author BP Location Right arm 01/16/2025 8:35 PM CDT La Grady BP Method Automatic 01/16/2025 3:17 PM CDT Domenica Damian CNA * Fall Risk Interventions Question Answer Date of Assessment Author All Low Fall Interventions Applied Yes 01/15/2025 11:00 PM Kortney Rivas RN All Moderate Fall Interventions Applied Yes 01/15/2025 11:00 PM ANNT Kortney Polanco RN All Moderate Fall Risk Interventions EXCEPT: Gait belt at bedside;Remain with patient while toileting 01/14/2025 8:00 PM Jez Ruff All High Fall Risk Interventions Applied No 01/15/2025 11:00 PM Kortney Rivas RN All High Risk Interventions EXCEPT: Bed alarm;Chair alarm 01/15/2025 11:00 PM Kortney Rivas RN Additional Interventions Applied Over-bed table on non-exit side;Exit bed on strong/preferred side 01/15/2025 11:00 PM Kortney Rivas RN Reason For Exception(s) demonstrates pro per use of call light, uses bedside commode 01/14/2025 8:00 PM Jez Ruff Reason For Exception(s) patient has a pu rewick and intermittently incontinent 01/15/2025 11:00 PM Kortney Rivas RN * Hygiene Question Answer Date of Assessment Author Hygiene Back rub 01/16/2025 7:00 PM Kortney Rivas RN Oral Care Mouth rinsed 01/16/2025 7:00 PM Kortney Rivas RN Hygiene Level of Assistance Moderate assist 01/16/2025 7:00 PM Kortney Rivas RN Toileting: Assistance with Clothing management up;Perineal hygiene;Bedside commode 01/16/2025 7:00 PM Kortney Rivas RN Toileting: Level of assistance Maximal;Moderate 01/16/2025 7:00 PM Kortney Rivas RN Reason not bathed/showered Patient/family refused bath/shower 01/14/2025 1:27 PM Dot Gandhi Perineal Care Sondra Care 01/16/2025 7:00 PM Kortney Rivas RN Linens Draw sheet changed;E xtra [place] 01/16/2025 7:00 PM Kortney Rivas RN Bath Bathed/showered with chlorhexidine (CHG) 01/16/2025 7:00 PM Kortney Rivas RN documented as of this encounter Mental Status * Question Answer Entry Date Author Level of Consciousness Alert;Awake 10:06 PM CDT Kortney Polanco RN Orientation Oriented X4 (person, place, time, situation) 01/16/2025 10:06 PM ANNT Kortney Polanco RN Neuro (WDL) X 01/16/2025 10:06 PM CDT Kortney Polanco RN Other Neuro Symptoms Fatigue 01/16/2025 10:06 PM CDT Kortney Polanco RN documented in this encounter Plan of Treatment Not on file documented as of this encounter Visit Diagnoses Not on filedocumented in this encounter Additional Health Concerns Infection Onset Date Last Indicated Resolved Time Ring Surveillance: C. auris 02/03/2025 02/03/2025 02/08/2025 9:50 PM CDT documented as of this encounter Care Teams Associate Professor Plant Pathology Relationship Specialty Start Date End Date Pascual Connor MD [address] [place] [address] PCP - General Family Medicine 10/04/19 Jenifer Quezada, PT Physical Therapist Physical Therapy 08/02/21 documented as of this encounter
--- OUTSIDE RECORDS SUMMARY | 2025-03-16 23:25 | XMS_ITS | Encounter Summary ---
Author Organization [facility] Address [address] [place] [address] Care Team Providers Care Language Translator Name Role Phone Pascual Connor MD Primary Care Provider [phone] Jenifer Quezada PT Unavailable Unavaila ble Reason for Visit * Reason Onset Date Comments Back Pain 12/25/2024 Encounter Details Date Type Department Care Team (Late st Contact Info) Description 12/25/2024 Nurse Triage [facility] Patient Access [address] [place] [address] Cornelia Sparrow RN Social History Tobacco Use Types Packs/Day Years [...] often do you attend chur ch or yarsani services? More than 4 times per year 02/08/2022 Do you belong to any clubs o r organizations such as mormon groups, unions, fraternal or athletic groups, or [...] PHQ-2 Answer Date Recorded PHQ-2 Total Score (If total score is 3 or more points, staff should administer the PHQ-9) 1 12/23/2024 PRAPARE - Transportation Answer Date Re corded [...] place to sleep or slept in a snf (including now)? No 02/08/2022 Social Connection and Isolation Panel Answer Date Recorded In a typical week, how many times do you talk on the phone with family, friends, or neighbors? More than three times a week 12/28/2024 How often do you get togethe r with friends or relatives? More than three times a week 12/28/2024 How often do you attend chur or yarsani services? Patient declined 12/28/2024 Do you belong to any clubs o r organizations such as mormon groups, unions, fraternal or athletic groups, or school groups? Patient declined 12/28/2024 How often do you attend meet ings of the clubs or organizations you belong to? Patient declined 12/28/2024 Are you , , di vorced, , never , or living with a partner? 12/28/2024 AUDIT-C Answer Date Recorded Q1: How often do you have a drink containing alcohol? Never 12/25/2024 Q2: How many drinks containi ng alcohol do you have on a typical day when you are drinking? Patient does not drink Q3: How often do you have si x or more drinks on one occasion? Never 12/25/2024 Overall Financial Resource Strain (CARDIA) Answe r Date Recorded How hard is it for you to pa y for the very basics like food, housing, medical care, and heating? Not very hard 12/28/2024 Hunger Vital Sign Answer Date Recorded Within the past 12 months, y ou worried that your food would run out before you got the money to buy more. Never true 12/29/19 25 Within the past 12 months, t he food you bought just didn't last and you didn't have money to get more. Never true 12/28/2024 PRAPARE - Transportation Answer Date Re corded In the past 12 months, has l ack of transportation kept you from medical appointments or from getting medications? No 12/13 In the past 12 months, has l ack of transportation kept you from meetings, work, or from getting things needed for daily living? No 12/28/2024 Housing Stability Vital Sign Answer Sergio e Recorded In the last 12 months, was t here a time when you were not able to pay the mortgage or rent on time? No 12/28/2024 In the past 12 months, how m any times have you moved where you were living? 0 12/28/2024 At any time in the past 12 m [facility] were you homeless or living in a snf (including now)? No 12/28/2024 [facility] Utilities Answer Date Recorded In the past 12 months has th e electric, gas, oil, or water company threatened to shut off services in your home? No 12/28/2024 Personal Safety Answer Date Recorded Have you ever been in or are you currently in a harmful physical or emotional relationship or is someone making you feel afraid or unsafe? 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 Gender Identity Not on file Sexual Orientation Not on file documented as of this encounter Functional Status * Difference in Last Two Patrick Scores Answer Date of Assessment Author 0 12/28/2024 7:30 PM CDT Kuldip Pretty, ANGELICA * Chavez Fall Risk Question Answer Date of Assessment Author History of Falling 0 12/28/2024 7:30 PM CDT Martina Pretty RN Secondary Diagnosis 15 12/28/2024 7:30 PM CD Martina Solomon RN Ambulatory Aids 30 12/28/2024 7:30 PM CDT Martina Jose RN Intravenous Therapy/Heparin/Saline Lock 20 12/28/2024 7:30 PM CDT Kuldip Pretty RN Gait/Transferring 20 12/28/2024 7:30 PM CDT Martina Pretty RN Mental Status 15 12/28/2024 7:30 PM CDT Martina Pretty RN Chavez Fall Risk Score (Score >= 45 places fall precaution order) 100 12/28/2024 7:30 PM CDT Martina Pretty se, RN Prior Fall Event (Autopopulated from EMR) None found 12/28/2024 7:30 PM CDT Martina Pretty RN * Patrick Scale Question Answer Date of Assessment Author Sensory Perceptions 4 12/28/2024 7:30 PM Martina Christie RN Moisture 3 12/28/2024 7:30 PM CDT Martina Pretty RN Activity 1 12/28/2024 7:30 PM CDT Martina Pretty RN Mobility 2 12/28/2024 7:30 PM CDT Martina Pretty RN Nutrition 2 12/28/2024 7:30 PM CDT Martina Pretty RN Friction and Shear 2 12/28/2024 7:30 PM CDT Martina Pretty RN Patrick Scale Score 14 12/28/2024 7:30 PM CDT Martina Pretty RN * Question Answer Date of Assessment Author BP Location Right arm 12/28/2024 11:26 PM CDT Giovana Whitmore BP Method Automatic 12/28/2024 11:26 PM CDT Giovana Whitmore MAP (mmHg) 92 12/28/2024 11:26 PM CDT Giovana Whitmore * Fall Risk Interventions Question Answer Date of Assessment Author All Low Fall Interventions Applied Yes 12/28/2024 7:30 PM Martina Zendejas RN All Moderate Fall Interventions Applied Yes 12/28/2024 7:30 PM Martina Zendejas RN All High Fall Risk Interventions Applied Yes 12/28/2024 7:30 PM Martina Zendejas RN Additional Interventions Applied Bed/chair alarm 12/28/2024 8:00 AM Vivek Telles RN * B.M.A.T. - Bedside Mobility Assessment Tool for Nurses Question Answer Date of Assessment Author Is patient able to participate in the BMAT? Yes 12/28/2024 7:30 PM Martina Zendejas RN BMAT Level Level 2 - Chaves 12/28/2024 7:30 PM Martina Andrade RN Level 2 Equipment Use total lift for patient unable to weight-bear on at least one leg;Use [id number] lift for pt who can weight-bear on at least one leg 12/28/2024 8:00 AM Vivek Telles RN * Question Answer Date of Assessment Author 1. Has the patient self-reported, presented with clinical signs of, or have a documented history of any of the following within the past 30 days? No 12/28/2024 7:30 PM Martina Zendejas se, RN * Question Answer Date of Assessment Author Is the patient being treated today because it is known or suspected that they prepared, started, or tried to end their life? No 12/25/2024 11:45 AM Devan Cooper RN * Question Answer Date of Assessment Author 1. In the past month, have y ou wished you were or that you could go to sleep and not wake up? No 12/25/2024 11:45 AM Devan Cooper RN 2. In the past month, have y ou actually had any thoughts of killing yourself? No 12/25/2024 11:45 AM Devan Cooper RN 6. Have you ever done anything, started to do anything, or prepared to do anything to end your life? No 12/25/2024 11:45 AM Edith Cooper RN * Suicide Risk Level Answer Date of Assessment Author No risk level 12/25/2024 11:45 AM Edith Polanco RN * Self-Injurious Risk Level Answer Date of Assessment Author No risk level 12/28/2024 7:30 PM Kuldip Zendejas RN * Pressure Injury Prevention Question Answer Date of Assessment Author Pressure Ulcer Prevention Interventions Keep skin clean and dry (Sensory Perception/Moisture) 12/28/2024 7:30 PM Martina Zendejas, ANGELICA 2 Nurse Skin Assessment Radha Biswas 2024 11:45 AM ANNT Edith Mack RN Special Mattress Gel overlay 12/28/2024 7:30 PM Martina Zendejas RN * Transdermal Patch Admission Assessment Question Answer Date of Assessment Author Transdermal Patch Assessment on Admission Not Present 12/25/2024 11:45 AM ANNT Shaji Mack RN * AUDIT-C Score Answer Date of Assessment Author 0 12/25/2024 11:56 AM Edith Polanco RN * Alcohol Use Question Answer Date of Assessment Author Q1: How often do you have a drink containing alcohol? Never 12/25/2024 11:56 AM Edith Cooper RN Q2: How many drinks containing alcohol do you have on a typical day when you are drinking? Patient does not drink 12/25/2024 11:56 AM Edith Cooper RN Q3: How often do you have six or more drinks on one occasion? Never 12/25/2024 11:56 AM Edith Cooper RN * Fall Risk Assessment Tool - MEDFRAT Question Answer Date of Assessment Author Prior Fall Event (Autopopulated from EMR) None found 12/25/2024 6:08 AM Colette Singh RN History of falling in last 3 months, including since admission 0 12/25/2024 6:08 AM Clary Singh RN Confusion or disorientation 0 12/25/2024 6:08 AM Clary Singh RN Intoxicated or sedated 0 12/25/2024 6:08 AM Clary Singh RN Impaired gait 0 12/25/2024 6:08 AM Clary Winters RN Mobility assist device used 0 12/25/2024 6:08 AM CDT Clary Awan RN Altered elimination 1 12/25/2024 6:08 AM CD T Clary Awan RN Fall risk score: (1-2 low risk), (3-4 moderate risk), (5 or more high risk) 1 12/25/2024 6:08 AM ANNT Clary Awan RN Interventions - GENERAL USE as needed patient/family education;call light in reach;bed low/locked 12/25/2024 6:08 AM CDT Clary Awan, ANGELICA * Integumentary Question Answer Date of Assessment Author Skin Color Pale;Dusky;Red 12/28/2024 7:30 PM CDT Martina Pretty RN Skin Condition/Temp Warm;Dry;Diaphoretic 025 7:30 PM ANNT Martina Pretty RN Skin Integrity Blanchable redness 12/28/2024 7: 30 PM ANNT Martina Pretty RN Skin Turgor Non-tenting 12/28/2024 7:30 PM CDT Martina Pretty RN Integumentary Additional Assessments Yes-Patrick 12/28/2024 7:30 PM ANNT Martina Pretty RN Integumentary (WDL) X 12/28/2024 7 :30 PM ANNT Martina Pretty RN Skin Location left wrist and right elbow red, warm and swollen 12/28/2024 7:30 PM CDT Martina Pretty RN * Question Answer Date of Assessment Author Affect Calm;Flat 12/28/2024 7:30 PM CDT Martina Pretty RN Mood Content 12/28/2024 7:30 PM CDT Martina Pretty RN * Question Answer Date of Assessment Author Percent Meal Eaten (%) 25 12/28/2024 5:58 PM CDT Irina Carreon Feeding Level of Assistance Able to feed self 12/26/2024 12:43 PM CDT Jc Childs Devin Appetite Fair 12/25/2024 6:30 PM CDT Juany Pedroza Percent Snack Eaten (%) 0 12/27/2024 8:26 A M CDT Davina Card RN * Question Answer Date of Assessment Author BP Location Right arm 12/28/2024 11:26 PM CDT Giovana Whitmore BP Method Automatic 12/28/2024 11:26 PM CDT Giovana Whitmore * Fall Risk Interventions Question Answer Date of Assessment Author All Low Fall Interventions Applied Yes 12/28/2024 7:30 PM ANNT Martina Pretty RN All Moderate Fall Interventions Applied Yes 12/28/2024 7:30 PM ANNT Martina Pretty RN All High Fall Risk Interventions Applied Yes 12/28/2024 7:30 PM ANNT Martina Pretty RN Additional Interventions Applied Bed/chair alarm 12/28/2024 8:00 AM ANNT Vivek Armando RN * ADL Screening Question Answer Date of Assessment Author Patient's Vision Adequate to Safely Complete Daily Activities Yes 12/25/2024 11:45 AM ANNT Devan Mack RN Patient's Judgement Adequate to Safely Complete Daily Activities Yes 12/25/2024 11:45 AM Edith Cooper RN Patient's Memory Adequate to Safely Complete Daily Activities Yes 12/25/2024 11:45 AM Devan Cooper RN Patient Able to Express Needs/Desires Yes 12/25/2024 11:45 AM Devan Cooper RN Dressing Independent 12/25/2024 11:45 AM ANNT Edith Ho RN Grooming Independent 12/25/2024 11:45 AM ANNT Edith Ho RN Feeding Independent 12/25/2024 11:45 AM Edith Reed RN Bathing Independent 12/25/2024 11:45 AM Edith Reed RN Toileting Independent 12/25/2024 11:45 AM Edith Reed, ANGELICA In/Out Bed Independent 12/25/2024 11:45 AM Edith Reed, ANGELICA Walks in Home Independent 12/25/2024 11:45 AM ANNT Edith Rascon RN Weakness of Legs Both 12/25/2024 11:45 AM Edith Cooper RN Weakness of Arms/Hands None 12/25/2024 11:45 A M Edith Cooper RN Hearing - Right Ear Functional 12/25/2024 11:45 AM C DT Edith Mack RN Hearing - Left Ear Functional 12/25/2024 11:45 AM Edith Amanda RN Dominant hand? Right 12/25/2024 11:45 AM Edith Boyer RN Decline in ADLs in last 2 weeks? 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 12/25/2024 11:45 AM Edith Cooper RN * Assistive Devices Question Answer Date of Assessment Author Assistive Devices/DME Cane;Eyeglasses;CP AP /BiPAP;Business Architect 12/25/2024 11:45 AM Edith Cooper RN * Hygiene Question Answer Date of Assessment Author Hygiene Skin cleanser 12/28/2024 6:00 PM Davina Mederos RN Oral Care Mouth swabbed 12/28/2024 6:00 PM Davina Mederos RN Hygiene Level of Assistance Dependent 12/28/2024 6:00 PM Davina Mederos RN Toileting: Assistance with Perineal hygiene 12/28/2024 8:00 AM Vivek Telles RN Toileting: Level of assistance Dependent 12/28/2024 6:00 PM Davina Mederos RN Reason not bathed/showered Patient/family refused bath/shower 12/27/2024 8:00 AM Davina Mederos RN Perineal Care Sondra Care 12/28/2024 6:00 PM Davina Mederos RN Linens Partial linen change (Comment) 12/28/2024 6:00 PM Davina Mederos RN Bath Not bathed/showered 12/28/2024 7:30 PM CD T Martina Pretty RN documented as of this encounter Mental Status * Question Answer Entry Date Author Level of Consciousness Drowsy;Lethargic 12/29/19 7:30 PM CDT Martina Pretty RN Orientation Oriented to person;Oriented to place 12/28/2024 7:30 PM ANNT Martina Pretty RN Neuro (WDL) X 12/28/2024 7:30 PM CDT Martina Pretty RN Other Neuro Symptoms Fatigue;Forgetful 7:30 PM CDT Martina Pretty RN documented in this encounter Miscellaneous Notes * Telephone Encounter - Nidia Gastelum MA - 12/27/2024 8:50 AM CDT JOSE Connor * Telephone Encounter - Cornelia Sparrow RN - 12/25/2024 4:55 AM CDT Regarding: Severe Back Pain ----- Message from Lorna Gordillo sent at 12/25/2024 4:54 AM CDT ----- Patient calling about back pain that started yesterday afternoon. Overnight the pain has gotten much worse, having trouble getting out of bed, walking, had accident trying to get to the bathroom, hashad back problems for many years. Pain is severe. S=SEVERE LOW BACK PAIN B=Patient calling in severe pain to the lower back. She sounds in distress, is unable to move without severe lower back pain. Denies any injury or other symptoms. Instructed to call 911 as she has noway to get to the ED. She verbalized understanding. A=DISPOSITION PER GUIDELINE=GO TO ED NOW R-HOME CARE/SELF CARE INSTRUCTIONS=Verbalized understanding documented in this encounter Plan of Treatment Not on file documented as of this encounter Visit Diagnoses Not on filedocumented in this encounter Additional Health Concerns Infection Onset Date Last Indicated Resolved Time COVID: Suspected 12/28/2024 12/28/2024 12/28/2024 7:38 PM CDT Ring Surveillance: C. auris 02/03/2025 02/03/2025 02/08/2025 9:50 PM CDT documented as of this encounter Care Teams Language Translator Relationship Specialty Start Date End Date Pascual Connor MD [address] [place] [address] PCP - General Family Medicine 10/04/19 Jenifer Quezada, PT Physical Therapist Physical Therapy 08/02/21 documented as of this encounter
--- OUTSIDE RECORDS SUMMARY | 2025-03-16 23:25 | XMS_ITS | Clinical Summary ---
Author Organization [facility] Address [address] [place] [address] Care Team Providers Care Web Mobile Designer Name Role Phone Unavailable Primary Care Provider Unavailabl e Source Comments [facility],non-owned Affiliates and Associated Physician Practices is amultiple site organization consisting of ambulatory clinics and hospital sitesin [place], [place], [place] and [place]. This disclosure is being madepursuant to the Care Everywhere program and may not contain all information available regarding this patient. Last updated 18.[facility] Social History Tobacco Use Types Packs/Day Years Used Date Smoking Tobacco: Never Assessed Comments Unknown Sex and Gender Information Value Date Recorded Sex Assigned at Not on file Legal Sex Female 12:10 PM CDT Gender Identity Not on file Sexual Orientation Not on file Plan of Treatment Health Maintenance Due Date Last Done Comments MEDICARE AWV 12 MONTHS 1945 HEPATITIS C SCREENING 12/06/1964 DTAP/TDAP/TD VACCINES (1 - Tdap) 1965 PNEUMOCOCCAL VACCINE 50+ (1 of 1 - PCV) 1996 ZOSTER VACCINE (1 of 2) 1996 Respiratory Syncytial Virus (RSV) Vaccine Pt: or over 60 yrs (1 - 1-dose 75+ series) 2021 DEPRESSION SCREENING 04/14/2024 COVID-19 VACCINE (1 - 2024- season) 2024 BONE DENSITY TESTING Completed 06/26/2023, 03/15/20 INFLUENZA VACCINE Completed 12/21/2024, , 01/07/2022, Additional history exists HEPATITIS B VACCINE Aged Out No longe r eligible based on patient's age to complete this topic HIB VACCINE Aged Out No longer eligi ble based on patient's age to complete this topic HPV VACCINE Aged Out No longer eligi ble based on patient's age to complete this topic MENINGOCOCCAL (Group B) VACCINE SHARED DECISION-MAKING Aged Out No longer eligible based on patient's age to complete this topic MENINGOCOCCAL GROUPS A/C/Y/W VACCINE Aged Out No longer eligible based on patient's age to complete this topic Insurance [facility]ICARE [facility]
--- OUTSIDE RECORDS SUMMARY | 2025-03-16 23:28 | XMS_ITS | Clinical Summary ---
Author Organization [facility] Address [address] [place] [id number] Care Team Providers Care Outreach Worker Name Role Phone Pascual Connor MD Primary Care Provider [phone] Jenifer Quezada PT Unavailable Unavaila ble Allergies Active Allergy Reactions Criticality Noted Date Comments Guaifenesin Swelling Medium Tongue swelling Medications cholecalciferol (VITAMIN D-3) 3,000 unit tablet Take 0.6667 tablets (2,000 Units total) by mouth daily Active meloxicam (MOBIC) 15 mg tablet Take 1 tablet (15 mg total) by mouth daily 07/14/19 24 Active ferrous sulfate (iron) 325 mg (65 mg of elemental iron) tablet Take 1 tablet (325 mg total) by mouth daily with breakfast 09/22/19 24 Active aspirin 81 mg enteric coated tablet Take 1 tablet (81 mg total) by mouth daily Active LevoxyL 75 mcg tablet Take 1 tablet (75 mcg total) by mouth daily 90 tablet 10/19/19 25 Active zinc gluconate 50 mg tablet Take 1 tablet (50 mg total) by mouth daily Active acetaminophen (TYLENOL) 500 mg tablet Take 1 tablet (500 mg total) by mouth every 6 (six) hours as needed for pain Active rosuvastatin (CRESTOR) 40 mg tablet Take 1 tablet (40 mg total) by mouth nightly 02/11/20 25 026 Active Additional Information Patient not taking.Reported on 03/02/[address] (PROTONIX) 40 mg EC tabletIndication s:Treatment of Non-Bleeding Gastric Disorder Take 1 tablet (40 mg total) by mouth daily 02/12/20 Active miconazole 2 % creamIndications :cutaneous candidiasis Apply topically 2 (two) times a day 02/11/20 Active Additional Information Patient not taking.Reported on 03/02/2025 metoprolol tartrate (LOPRESSOR) 25 mg immediate release tablet Take 0.5 tablets (12.5 mg total) by mouth 2 (two) times a day 02/11/20 Active methocarbamoL (ROBAXIN) 500 mg tablet Take 1 tablet (500 mg total) by mouth 2 (two) times a day 02/11/20 Active lidocaine (LIDODERM) 5 % Place 3 patches on the skin daily for 12 hours Remove & discard patch(es) within 12 hours or as directed by 02/12/20 Active gabapentin (NEURONTIN) 100 mg capsule Take 1 capsule (100 mg total) by mouth 2 (two) times a day 02/11/20 Active furosemide (LASIX) 40 mg tablet Take 1 tablet (40 mg total) by mouth daily 02/12/[address] (CYMBALTA) 30 mg capsule Take 1 capsule (30 mg total) by mouth daily 02/12/20 Active diclofenac sodium (VOLTAREN) 1 % gel Apply 2 g topically 3 (three) times a day as needed (pain) 02/11/20 Active apixaban (ELIQUIS) 5 mg tabletIndication s:atrial fibrillation Take 1 tablet (5 mg total) by mouth every 12 (twelve) hours 02/11/20 Active amLODIPine (NORVASC) 5 mg tablet Take 1 tablet (5 mg total) by mouth daily 02/12/20 Active amiodarone (PACERONE) 200 mg tablet Take 1 tablet (200 mg total) by mouth daily 02/12/20 Active hydroxychloroqui ne 400 mg tablet Take 400 mg by mouth 3 (three) times a week 02/12/20 Active Additional Information Patient taking differently:400 mg oral 3 times weekly,Patient takes Mon, Wed, Fri, Reported on 03/02/2025 hydroxychloroqui ne (PLAQUENIL) 200 mg tablet Take 1 tablet (200 mg total) by mouth 4 (four) times a week 02/13/20 Active sodium chloride 1,000 mg tablet Take 1 tablet (1 g total) by mouth daily Active sodium chloride (OCEAN) 0.65 % nasal spray Administer 1 spray into affected nostril(s) 02/25/20 Active nystatin powder Apply topically 02/25/20 Active ascorbic acid (ascorbic acid with olivia hips) 500 mg tablet,chewable Acti ve traZODone (DESYREL) 50 mg tablet Take 0.5 tablets (25 mg total) by mouth nightly 45 tablet 1 03/02/20 Active ertapenem 1 g in sodium chloride 0.9% 50 mL IVPB Infuse 1 g IV daily Active VITAMIN C, ASCORBATE CALCIUM, ORAL Take 1,000 mg by mouth daily 07/21/19 Discontinu ed(Therapy completed) UNABLE TO FIND Ferrofood Supplement Discontinu ed(Therapy completed) DAPTOmycin (CUBICIN) 50 mg/mL injectionIndicat ions:Bone/Joint Infection Infuse 10 mL (500 mg total) IV daily for 2 minutes for 21 days at 300 mL/hr 02/11/20 traZODone (DESYREL) 50 mg tablet Take 0.5 tablets (25 mg total) by mouth nightly 02/11/20 Discontinu ed(Reorder ) DAPTOmycin (CUBICIN) 500 mg injection 02/25/20 Discontinu ed(Alterna te therapy) Active Problems Problem Noted Date Diagnosed Date Anemia 02/05/2025 Assessment & Plan (02/10/2025 9:43 AM CDT): Related to AOCD/inflammation. B12/folate/hapto/LDH unremarkable - trend hgb - transfuse to goal of 7 Assessment & Plan (02/09/2025 7:34 AM CDT): Related to AOCD/inflammation. B12/folate/hapto/LDH unremarkable - trend hgb - transfuse to goal of 7 Assessment & Plan (02/08/2025 1:31 PM CDT): Related to AOCD/inflammation. B12/folate/hapto/LDH unremarkable - trend hgb - transfuse to goal of 7 Assessment & Plan (02/07/2025 7:53 AM CDT): - likely AOCD, ferritin in 12/29 is 800 - trend hgb - transfuse to goal of 7 Assessment & Plan (02/06/2025 9:17 AM CDT): - likely AOCD, ferritin in 12/29 is 800 - trend hgb - transfuse to goal of 7 Assessment & Plan (02/05/2025 8:02 PM CDT): - likely AOCD, ferritin in 12/29 is 800 - trend hgb - transfuse to goal of 7 Chronic kidney disease (CKD), stage III (moderat e) 02/05/2025 Assessment & Plan (02/10/2025 9:43 AM CDT): Cr peak 2.46 and now stable 0.9-1.1. - Monitor carefully with restarting meloxicam - trend BMP Assessment & Plan (02/09/2025 7:34 AM CDT): Cr peak 2.46 and now stable 0.9-1.1. - Monitor carefully with restarting meloxicam - trend BMP Assessment & Plan (02/08/2025 1:31 PM CDT): Cr peak 2.46 and now stable 0.9-1.1. - Monitor carefully with restarting meloxicam - trend BMP Assessment & Plan (02/07/2025 7:53 AM CDT): - renally dose medications - avoid nephrotoxins - trend scr Assessment & Plan (02/06/2025 9:17 AM CDT): - renally dose medications - avoid nephrotoxins - trend scr Assessment & Plan (02/05/2025 8:02 PM CDT): - renally dose medications - avoid nephrotoxins - trend scr Vaginal irritation 02/02/2025 Assessment & Plan (02/07/2025 7:53 AM CDT): - Reddened, swollen, and vulva from incontinence, purewick, and itching - barrier cream, anti-fungal cream - improving Assessment & Plan (02/06/2025 9:17 AM CDT): - Reddened, swollen, and vulva from incontinence, purewick, and itching - barrier cream, anti-fungal cream - improving Assessment & Plan (02/05/2025 8:02 PM CDT): - Reddened, swollen, and vulva from incontinence, purewick, and itching - barrier cream, anti-fungal cream - improving Assessment & Plan (02/04/2025 11:16 AM CDT): -Reddened, swollen, and vulva from incontinence, purewick, and itching -Unsure if fungal - antifungal cream ordered -Vaseline as barrier to vulva as heals -improved A-fib 01/25/2025 Assessment & Plan (02/10/2025 9:43 AM CDT): -Intermittent afib and junctional rhythm 40s during hospitalization -evaluated by EP -01/24 amio bolus x2 and load started -01/31 restarted metoprolol 12.5 mg po BID for afib RVR up to 140s; no pauses noted on telemetry - Current telemetry significant for conversion to NSR - Continue Eliquis for AC for [id number] of 5 - Continue amiodarone 200 mg po daily - 30 day event monitor on dc if she still has episodes of atrial fibrillation but thus far, no recurrence Assessment & Plan (02/09/2025 7:34 AM CDT): -Intermittent afib and junctional rhythm 40s during hospitalization -evaluated by EP -01/24 amio bolus x2 and load started -01/31 restarted metoprolol 12.5 mg po BID for afib RVR up to 140s; no pauses noted on telemetry - Current telemetry significant for conversion to NSR - Continue Eliquis for AC for [id number] of 5 - Continue amiodarone 200 mg po daily - 30 day event monitor on dc if she still has episodes of atrial fibrillation but thus far, no recurrence Assessment & Plan (02/08/2025 1:31 PM CDT): -Intermittent afib and junctional rhythm 40s during hospitalization -evaluated by EP -01/24 amio bolus x2 and load started -01/31 restarted metoprolol 12.5 mg po BID for afib RVR up to 140s; no pauses noted on telemetry - Current telemetry significant for conversion to NSR - Continue Eliquis for AC for [id number] of 5 - Continue amiodarone 200 mg po daily - 30 day event monitor on dc if she still has episodes of atrial fibrillation Assessment & Plan (02/07/2025 3:57 PM CDT): -Intermittent afib and junctional rhythm 40s during hospitalization -evaluated by EP -01/24 amio bolus x2 and load started -01/31 restarted metoprolol 12.5 mg po BID for afib RVR up to 140s; no pauses noted on telemetry - Current telemetry significant for conversion to NSR - Continue Eliquis for AC for [id number] of 5 - Continue amiodarone 200 mg po daily - 30 day event monitor on dc if she still has episodes of atrial fibrillation Assessment & Plan (02/06/2025 3:30 PM CDT): -Intermittent afib and junctional rhythm 40s during hospitalization -evaluated by EP -01/24 amio bolus x2 and load started -01/31 restarted metoprolol 12.5 mg po BID for afib RVR up to 140s; no pauses noted on telemetry - Current telemetry significant for conversion to NSR - Continue Eliquis for AC for [id number] of 5 - Continue amiodarone 200 mg po daily - 30 day event monitor on dc if she still has episodes of atrial fibrillation Assessment & Plan (02/05/2025 8:02 PM CDT): -Intermittent afib and junctional rhythm 40s during hospitalization -evaluated by EP -01/24 amio bolus x2 and load started -01/31 restarted metoprolol 12.5 mg po BID for afib RVR up to 140s; no pauses noted on telemetry -Current telemetry significant for conversion to NSR - Eliquis for AC for [id number] of 5 - Continue amiodarone 200 mg po daily - Restarted metoprolol 12.5 mg po BID on 01/31/25 for afib RVR up to 140s; no pauses noted on telemetry - 30 day event monitor on dc if she still has episodes of atrial fibrillation - K>4, Mg>2 - TTE on 01/24 with normal ef Assessment & Plan (02/04/2025 11:16 AM CDT): -Intermittent atrial fibrillation during admission -EP re-engaged. -01/24 amio bolus x2 and load started -01/31 restarted metoprolol 12.5 mg po BID for afib RVR up to 140s; no pauses noted on telemetry -Current telemetry significant for conversion to NSR -Eliquis for AC -EP recommends event monitor at D/C if persists Dysrhythmias 01/24/2025 Assessment & Plan (02/10/2025 9:43 AM CDT): -Intermittent afib and junctional rhythm 40s during hospitalization -evaluated by EP -01/24 amio bolus x2 and load started -01/31 restarted metoprolol 12.5 mg po BID for afib RVR up to 140s; no pauses noted on telemetry - Current telemetry significant for conversion to NSR - Continue Eliquis for AC for [id number] of 5 - Continue amiodarone 200 mg po daily - 30 day event monitor on dc if she still has episodes of atrial fibrillation but thus far, no recurrence Assessment & Plan (02/09/2025 7:34 AM CDT): -Intermittent afib and junctional rhythm 40s during hospitalization -evaluated by EP -01/24 amio bolus x2 and load started -01/31 restarted metoprolol 12.5 mg po BID for afib RVR up to 140s; no pauses noted on telemetry - Current telemetry significant for conversion to NSR - Continue Eliquis for AC for [id number] of 5 - Continue amiodarone 200 mg po daily - 30 day event monitor on dc if she still has episodes of atrial fibrillation but thus far, no recurrence Assessment & Plan (02/08/2025 1:31 PM CDT): -Intermittent afib and junctional rhythm 40s during hospitalization -evaluated by EP -01/24 amio bolus x2 and load started -01/31 restarted metoprolol 12.5 mg po BID for afib RVR up to 140s; no pauses noted on telemetry - Current telemetry significant for conversion to NSR - Continue Eliquis for AC for [id number] of 5 - Continue amiodarone 200 mg po daily - 30 day event monitor on dc if she still has episodes of atrial fibrillation Assessment & Plan (02/07/2025 3:57 PM CDT): -Intermittent afib and junctional rhythm 40s during hospitalization -evaluated by EP -01/24 amio bolus x2 and load started -01/31 restarted metoprolol 12.5 mg po BID for afib RVR up to 140s; no pauses noted on telemetry - Current telemetry significant for conversion to NSR - Continue Eliquis for AC for [id number] of 5 - Continue amiodarone 200 mg po daily - 30 day event monitor on dc if she still has episodes of atrial fibrillation Assessment & Plan (02/06/2025 3:30 PM CDT): -Intermittent afib and junctional rhythm 40s during hospitalization -evaluated by EP -01/24 amio bolus x2 and load started -01/31 restarted metoprolol 12.5 mg po BID for afib RVR up to 140s; no pauses noted on telemetry - Current telemetry significant for conversion to NSR - Continue Eliquis for AC for [id number] of 5 - Continue amiodarone 200 mg po daily - 30 day event monitor on dc if she still has episodes of atrial fibrillation Assessment & Plan (02/05/2025 8:02 PM CDT): -Intermittent afib and junctional rhythm 40s during hospitalization -evaluated by EP -01/24 amio bolus x2 and load started -01/31 restarted metoprolol 12.5 mg po BID for afib RVR up to 140s; no pauses noted on telemetry -Current telemetry significant for conversion to NSR - Eliquis for AC for [id number] of 5 - Continue amiodarone 200 mg po daily - Restarted metoprolol 12.5 mg po BID on 01/31/25 for afib RVR up to 140s; no pauses noted on telemetry - 30 day event monitor on dc if she still has episodes of atrial fibrillation - K>4, Mg>2 - TTE on 01/24 with normal ef Assessment & Plan (02/03/2025 12:45 PM CDT): 01/17 Underlying rhythm junctional in the 60's 01/21 EP consulted, recommendations to keep EPW to VVI backup and avoid AV kathryn blockers 01/22 NSR 70's on monitor, EPW to VVI backup 40 - EP signed off 01/23 Noted to have some junctional and non sustain atrial fibrillation, back in NSR by this morning 01/24 Noted to be in A-fib 160s in the AM and later in the afternoon. Amio bolus given x1 for both occasions. 01/24 EP re-engaged recommendations: - Continue VVI 40 as backup and please confirm that her epicardial wires still capture appropriately - Please obtain a full TTE for new onset afib - When able, please ambulate her to see if she has chronotropic intolerance. - Given TSH of 18, we recommend initiate metoprolol IR 6.25mg q12 hours for rate control. It is reasonable to use amiodarone if she continues to have episodes of afib with RVR. - CHADSVASC=5. Recommend starting therapeutic anticoagulation - Please order a 30 day event monitor at discharge to determine if she continues to have episodes of afib - continuous telemetry. 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 She underwent MVR with CABG x2 and JOSELYN ligation on 01/17, and remained on the CT surgery floor. She was transitioned to ceftriaxone monotherapy per ID consult guidance. Diagnostics: - Blood cultures 12/28, 12/30, 01/03 all with no growth - Bone biopsy of areas of spinal osteo (path cw osteo, cultures with no growth) - CALENDER W[employer] TENDER shunt tap CSF cultures with no growth - 16S of CALENDER W[employer] UP TENDER shunt without DNA detected. -Crag, Bartonella, Q-fever, and blasto antibody negative. - histo UAg, histo Ab negative - Karius sequencing of blood - positive for streptococcus agalactiae Plan: -ID signed off (02/08). Changed CTX-->daptomycin (02/08-) due to leukopenia. Check weekly CBC/CMP/CK. Plan for at least 4 additional weeks with repeat spinal MRI 03/03 - continue furosemide 40 (has hx of HFpEF). Can change to PRN if Andreia develops; she had been tolerating this for 2+ weeks. 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 She underwent MVR with CABG x2 and JOSELYN ligation on 01/17, and remained on the CT surgery floor. She was transitioned to ceftriaxone monotherapy per ID consult guidance. Diagnostics: - Blood cultures 12/28, 12/30, 01/03 all with no growth - Bone biopsy of areas of spinal osteo (path cw osteo, cultures with no growth) - CALENDER W[employer] T[employer]ER shunt tap CSF cultures with no growth - 16S of CALEND[employer] W[employer] T[employer]ER shunt without DNA detected. -Crag, Bartonella, Q-fever, and blasto antibody negative. - histo UAg, histo Ab negative - Karius sequencing of blood - positive for streptococcus agalactiae Plan: -ID signed off (02/08). Changed CTX-->daptomycin (02/08-) due to leukopenia. Check weekly CBC/CMP/CK. Plan for at least 4 additional weeks with repeat spinal MRI 03/03 - continue furosemide 40 (has hx of HFpEF). Can change to PRN if Andreia develops; she had been tolerating this for 2+ weeks. Assessment & Plan (02/08/2025 1:31 PM CDT): She initially presented 12/31 with back pain, and after various workup was found to have MV endocarditis in addition to spinal abscess/osteomyelitis. She underwent MVR with CABG x2 and JOSELYN ligation on 01/17, and remained on the CT surgery floor. She was transitioned to ceftriaxone monotherapy per ID consult guidance. Diagnostics: - Blood cultures 12/28, 12/30, 01/03 all with no growth - Bone biopsy of areas of spinal osteo (path cw osteo, cultures with no growth) - CALENDER W[employer] TENDER shunt tap CSF cultures with no growth - 16S of CALEND[employer] W[employer] UP TENDER shunt without DNA detected. -Crag, Bartonella, Q-fever, and blasto antibody negative. - histo UAg, histo Ab negative - Karius sequencing of blood - positive for streptococcus agalactiae Plan: -ID signed off (02/08). Changed Ceftriaxone-->daptomycin (02/08-) due to leukopenia. Check weekly CBC/CMP/CK. Plan for at least 4 additional weeks with repeat spinal MRI 03/03 - continue furosemide 40 (has hx of HFpEF). Can change to PRN if Andreia develops; she had been tolerating this for 2+ weeks. 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 She underwent MVR with CABG x2 and JOSELYN ligation on 01/17, and remained on the CT surgery floor. She was transitioned to ceftriaxone monotherapy per ID consult guidance. Diagnostics: - Blood cultures 12/28, 12/30, 01/03 all with no growth - Bone biopsy of areas of spinal osteo (path cw osteo, cultures with no growth) - CALEND[employer] W[employer] TENDER shunt tap CSF cultures with no growth - 16S of CALEND[employer] W[employer] T[employer]ER shunt without DNA detected. -Crag, Bartonella, Q-fever, and blasto antibody negative. 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 She underwent MVR with CABG x2 and JOSELYN ligation on 01/17, and remained on the CT surgery floor. She was transitioned to ceftriaxone monotherapy per ID consult guidance. Diagnostics: - Blood cultures 12/28, 12/30, 01/03 all with no growth - Bone biopsy of areas of spinal osteo (path cw osteo, cultures with no growth) - CALEND[employer] W[employer] TENDER shunt tap CSF cultures with no growth - 16S of CALEND[employer] W[employer] T[employer]ER shunt without DNA detected. -Crag, Bartonella, Q-fever, and blasto antibody negative. - histo UAg, histo Ab negative - Karius sequencing of blood - positive for streptococcus agalactiae Plan: - Continue ceftriaxone 2g IV q24 - see elsewhere regarding plan for IR aspiration of spinal abscess - continue furosemide 40 Assessment & Plan (02/05/2025 8:02 PM CDT): - s/p MVR with cabg x 2 and JOSELYN ligation on 01/17 - Blood cultures 12/28, 12/30, 01/03 all with no growth - Bone biopsy of areas of spinal osteo (path cw osteo, cultures with no growth) - CALEND[employer] W[employer] TENDER shunt tap CSF cultures with no growth - 16S of CALEND[employer] W[employer] TENDER shunt without DNA detected. -Crag, Bartonella, Q-fever, and blasto antibody negative. - histo UAg, histo Ab negative - Karius sequencing of blood - positive for streptococcus agalactiae - Continue ceftriaxone 2g IV q24 - ID following Assessment & Plan (02/04/2025 11:13 AM CDT): 01/07 JANELLE - There is a large, irregular, independently mobile echodensity consistent with vegetation attached to the P2 scallop of the posterior leaflet of the mitral valve. Procedure(s) 01/17/25: MITRAL VALVE REPAIR USING 28 MM ANNULOPLASTY BAND AND 4 CM X 4 CM SUPPLE HAKEEM- GUARD PATCH; CABG X 2 ENDO HARVEST SVG - DIAGONAL, SVG-LAD CORONARY ARTERY BYPASS GRAFT X2 ENDO VEIN HARVEST SVG-LAD, SVG-DIAGONAL -Transferred to floor 01/21/25 -Continue aspirin 81mg po daily -Continue Eliquis 5mg PO daily -Continue Furosemide 40mg daily -Continue Amiodarone 200mg -Continue metoprolol 12.5 mg po BID -Continue Norvasc 2.5mg daily -Converted to NSR in the AM 02/01/25 -Chest tubes and EPW removed -Heart healthy diet -Continue incentive spirometer and pulmonary hygiene ID SOT recommendations 01/25: Antimicrobial(s) (Please RENALLY ADJUST DOSES if indicated): -Ceftriaxone 2g IV Q24H CrCl at sign off - Estimated Creatinine Clearance: 40 mL/min (by C-G 65 yr and older- minimum SCr 0.8 based on SCr of 0.96 mg/dL). Start date: 12/27 Anticipated end date (specific date is required): 02/07 Firm Stop (Y/N): no, needs repeat imaging prior to stopping treatment Safety Labs & Frequency (refer to OPAT labs guidance): CBC with diff and CMP weekly ESR and CRP 3 and 6 weeks into treatment Imaging Recommended Before Follow Up (include clinical question to be answered by imaging): MRI cervical and thoracic spine with contrast to assess subdural empyemas Clinic follow-up: In 1-2 weeks after discharge and/or at end of therapy CAD (coronary artery disease) 01/22/2025 Assessment & Plan (02/10/2025 9:43 AM CDT): - s/p CABG as described elsewhere - continue aspirin and atorvastatin Assessment & Plan (02/09/2025 7:34 AM CDT): - s/p CABG as described elsewhere - continue aspirin and atorvastatin Assessment & Plan (02/08/2025 1:31 PM CDT): - s/p CABG as described elsewhere - continue aspirin and atorvastatin Assessment & Plan (02/07/2025 7:53 AM CDT): - s/p CABG as described elsewhere - continue aspirin and atorvastatin Assessment & Plan (02/06/2025 3:30 PM CDT): - s/p CABG as described elsewhere - continue aspirin and atorvastatin Assessment & Plan (02/05/2025 8:02 PM CDT): - s/p CABG - continue aspirin and atorvastatin Assessment & Plan (02/04/2025 11:13 AM CDT): MITRAL VALVE REPAIR USING 28 MM ANNULOPLASTY BAND AND 4 CM X 4 CM SUPPLE HAKEEM- GUARD PATCH; CABG X 2 ENDO HARVEST SVG - DIAGONAL, SVG-LAD CORONARY ARTERY BYPASS GRAFT X2 ENDO VEIN HARVEST SVG-LAD, SVG-DIAGONAL -Transferred to floor 01/21/25 -Continue aspirin 81mg po daily -Continue Eliquis 5mg PO daily -Continue Furosemide 40mg daily -Continue Amiodarone 200mg -Continue metoprolol 12.5 mg po BID -Continue Norvasc 5mg daily -Converted to NSR in the AM 02/01/25 -Chest tubes and EPW removed -Heart healthy diet -Continue incentive spirometer and pulmonary hygiene -PT/OT -OOBTC TID Acute pain 01/22/2025 Assessment & Plan (02/10/2025 9:43 AM CDT): At home she takes HCQ 200mg MWF and MTX 2.5 Q and mobic which have been on hold given active infection - Robaxin 750mg TID PRN - Scheduled Lidocaine Patches - Scheduled tylenol - Cymbalta 30 - gabapentin 100 bid - Rheum consulted due to c/f RA flare. R elbow US with synovitis with minimal fluid. No c/f septic arthritis per ID and Rheum. -Restart meloxicam 02/08 (CT surgery was ok); restart plaquenil 02/09 Assessment & Plan (02/09/2025 7:34 AM CDT): At home she takes HCQ 200mg MWF and MTX 2.5 Q and mobic which have been on hold given active infection - Robaxin 750mg TID PRN - Scheduled Lidocaine Patches - Scheduled tylenol - Cymbalta 30 - gabapentin 100 bid - Rheum consulted due to c/f RA flare. R elbow US with synovitis with minimal fluid. No c/f septic arthritis per ID and Rheum. -Restart meloxicam 02/08 (CT surgery was ok); restart plaquenil 02/09 Assessment & Plan (02/08/2025 1:31 PM CDT): At home she takes HCQ 200mg MWF and MTX 2.5 Q and mobic which have been on hold given active infection - Robaxin 750mg TID PRN - Scheduled Lidocaine Patches - Scheduled tylenol - Cymbalta 30 - gabapentin 100 bid - Rheum consulted due to c/f RA flare. R elbow US with synovitis with minimal fluid. No c/f septic arthritis per ID and Rheum. -Restart meloxicam 02/08 (CT surgery was ok); restart plaquenil 02/09 Assessment & Plan (02/07/2025 12:02 PM CDT): At home she takes HCQ 200mg MWF and MTX 2.5 Q and mobic week which have been on hold given active infection - Robaxin 750mg TID PRN - Scheduled Lidocaine Patches - Scheduled tylenol - Cymbalta 30 - gabapentin 100 bid - On 02/06 rheumatology was consulted regarding the patient's concern that she was having a RA flare, they recommended US of her elbow and they were ok with resuming HCQ however the patient opted against this when offered Assessment & Plan (02/06/2025 3:30 PM CDT): At home she takes HCQ 200mg MWF and MTX 2.5 Q and mobic week which have been on hold given active infection - Robaxin 750mg TID PRN - Scheduled Lidocaine Patches - Scheduled tylenol - Cymbalta 30 - gabapentin 100 bid - On 02/06 rheumatology was consulted regarding the patient's concern that she was having a RA flare, appreciate their recs Assessment & Plan (02/05/2025 8:02 PM CDT): - likely related to RA, takes HCQ 200mg MWF and MTX 2.5 Q and mobic week which are on hold given active infection - Robaxin 750mg TID PRN - Scheduled Lidocaine Patches - Scheduled tylenol - Cymbalta 30 - gabapentin 100 bid - consider rheumatology consult for appropriate options for disease treatment, can probably resume HCQ Assessment & Plan (02/04/2025 11:14 AM CDT): -Robaxin 750mg TID PRN -Scheduled Lidocaine Patches -Scheduled tylenol -PM&R recs- started gabapentin 100mg BID and gabapentin 300mg nightly -Gabapentin (BID only), tramadol, and trazodone resumed 01/29 as hallucinations resolved Acute osteomyelitis of spine 01/22/2025 Assessment & Plan (02/10/2025 9:43 AM CDT): After initially presenting with back pain and spinal imaging showing signs of OM and spinal abscess, she underwent treatment with IV antibiotics for 6 weeks (12/27- 02/07), with ID recommending repeat imaging toward the end of her treatment. Thus, MRI C-spine on 02/03 was performed and read with interval mildly decrease in size of the dorsal epidural abscess at C2-C3 level with persistent circumferential enhancement along the anterior and dorsal aspect of the epidural spaces with further extension to the posterior fossa and supratentorial region. Worsening of the marrow edema and enhancement involving right C7-T1 facet joint, concerning for septic arthritis. Persistent small dorsal epidural abscess at the level of T1-T2 with interval mildly increasing edema and enhancement in the posterior elements of T2. Interventional radiology was been consulted for aspiration of the C2-C3 lesion for information to guide further treatment, however on AM of 02/07 they stated that they would not be performing the aspiration anymore because of the nature of the lesion .C2-C3 area and that it is extremely high risk and low yield. In addition a long eliquis washout period would be needed. Moreover, there is high risk for causing meningitis. Overall they will NOT perform the procedure, and they feel similarly about the thoracic area as well. They have canceled the consult. -NSGY signed off and will f/u in 1 mo outpatient -Antibiotic and imaging plan above Assessment & Plan (02/09/2025 7:34 AM CDT): After initially presenting with back pain and spinal imaging showing signs of OM and spinal abscess, she underwent treatment with IV antibiotics for 6 weeks (12/27- 02/07), with ID recommending repeat imaging toward the end of her treatment. Thus, MRI C-spine on 02/03 was performed and read with interval mildly decrease in size of the dorsal epidural abscess at C2-C3 level with persistent circumferential enhancement along the anterior and dorsal aspect of the epidural spaces with further extension to the posterior fossa and supratentorial region. Worsening of the marrow edema and enhancement involving right C7-T1 facet joint, concerning for septic arthritis. Persistent small dorsal epidural abscess at the level of T1-T2 with interval mildly increasing edema and enhancement in the posterior elements of T2. Interventional radiology was been consulted for aspiration of the C2-C3 lesion for information to guide further treatment, however on AM of 02/07 they stated that they would not be performing the aspiration anymore because of the nature of the lesion .C2-C3 area and that it is extremely high risk and low yield. In addition a long eliquis washout period would be needed. Moreover, there is high risk for causing meningitis. Overall they will NOT perform the procedure, and they feel similarly about the thoracic area as well. They have canceled the consult. -NSGY signed off and will f/u in 1 mo outpatient -Antibiotic and imaging plan above Assessment & Plan (02/08/2025 1:31 PM CDT): After initially presenting with back pain and spinal imaging showing signs of OM and spinal abscess, she underwent treatment with IV antibiotics for 6 weeks (12/27- 02/07), with ID recommending repeat imaging toward the end of her treatment. Thus, MRI C-spine on 02/03 was performed and read with interval mildly decrease in size of the dorsal epidural abscess at C2-C3 level with persistent circumferential enhancement along the anterior and dorsal aspect of the epidural spaces with further extension to the posterior fossa and supratentorial region. Worsening of the marrow edema and enhancement involving right C7-T1 facet joint, concerning for septic arthritis. Persistent small dorsal epidural abscess at the level of T1-T2 with interval mildly increasing edema and enhancement in the posterior elements of T2. Interventional radiology was been consulted for aspiration of the C2-C3 lesion for information to guide further treatment, however on AM of 02/07 they stated that they would not be performing the aspiration anymore because of the nature of the lesion .C2-C3 area and that it is extremely high risk and low yield. In addition a long eliquis washout period would be needed. Moreover, there is high risk for causing meningitis. Overall they will NOT perform the procedure, and they feel similarly about the thoracic area as well. They have canceled the consult. -NSGY signed off and will f/u in 1 mo outpatient -Antibiotic and imaging plan above Assessment & Plan (02/07/2025 3:57 PM CDT): After initially presenting with back pain and spinal imaging showing signs of OM and spinal abscess, she underwent treatment with IV antibiotics for several weeks, with ID recommending repeat imaging toward the end of her treatment. Thus, MRI C-spine on 02/03 was performed and read with interval mildly decrease in size of the dorsal epidural abscess at C2-C3 level with persistent circumferential enhancement along the anterior and dorsal aspect of the epidural spaces with further extension to the posterior fossa and supratentorial region. Worsening of the marrow edema and enhancement involving right C7-T1 facet joint, concerning for septic arthritis. Persistent small dorsal epidural abscess at the level of T1-T2 with interval mildly increasing edema and enhancement in the posterior elements of T2. Interventional radiology was been consulted for aspiration of the C2-C3 lesion for information to guide further treatment, however on AM of 02/07 they stated that they would not be performing the aspiration anymore because of the nature of the lesion and b/c she has been on eliquis - discussed extensively with IR on 02/07 over the phone: - they feel there is only maybe 1 cc of fluid in the C2-C3 area and that it is extremely high risk and low yield. In addition a long eliquis washout period would be needed. Moreover, there is high risk for causing meningitis. Overall they will NOT perform the procedure, and they feel similarly about the thoracic area as well. They have canceled the consult. - continue ceftriaxone for now Assessment & Plan (02/06/2025 3:30 PM CDT): After initially presenting with back pain and spinal imaging showing signs of OM and spinal abscess, she underwent treatment with IV antibiotics for several weeks, with ID recommending repeat imaging toward the end of her treatment. Thus, MRI C-spine on 02/03 was performed and read with Interval mildly decrease in size of the dorsal epidural abscess at C2-C3 level with persistent circumferential enhancement along the anterior and dorsal aspect of the epidural spaces with further extension to the posterior fossa and supratentorial region. Worsening of the marrow edema and enhancement involving right C7-T1 facet joint, concerning for septic arthritis. Persistent small dorsal epidural abscess at the level of T1-T2 with interval mildly increasing edema and enhancement in the posterior elements of T2. - Interventional radiology has been consulted for aspiration of the C2-C3 lesion for information to guide further treatment - continue ceftriaxone for now Assessment & Plan (02/05/2025 8:02 PM CDT): - ID recommended repeat spinal imaging towards end of treatment - MRI C-spine on 02/03 read with Interval mildly decrease in size of the dorsal epidural abscess at C2-C3 level with persistent circumferential enhancement along the anterior and dorsal aspect of the epidural spaces with further extension to the posterior fossa and supratentorial region. Worsening of the marrow edema and enhancement involving right C7-T1 facet joint, concerning for septic arthritis. Persistent small dorsal epidural abscess at the level of T1-T2 with interval mildly increasing edema and enhancement in the posterior elements of T2. - Per ID needs NSGY vs IR sampling; NSGY decided on IR eval, tentatively for Friday - Continue ceftriaxone for now Assessment & Plan (02/04/2025 12:47 PM CDT): -01/02 MRI spine- 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 At T1-T2, there is a suspected small abscess paralleling the right T1 lamina and suspected right septic facet arthritis -ID following -02/03 MRI impression: IMPRESSION: 1. Redemonstrated postoperative changes of anterior discectomy and instrumented fusion from C4-C7. 2. Interval mildly decrease in size of the dorsal epidural abscess at C2-C3 level with persistent circumferential enhancement along the anterior and dorsal aspect of the epidural spaces with further extension to the posterior fossa and supratentorial region. 3fMRI brain without and with contrast can be obtained for further evaluation. 3. Worsening of the marrow edema and enhancement involving right C7-T1 facet joint, concerning for septic arthritis. 4. 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 Persistent small dorsal epidural abscess at the level of T1-T2 with interval mildly increasing edema and enhancement in the posterior elements of T2. Overall, diffuse circumferential epidural enhancement at the level of entire thoracic spine has slightly increase compared to prior study. -Neurosurgery consulted for ID has no plans for intervention at this time. Subdural empyema 01/03/2025 Assessment & Plan (03/02/2025 8:04 PM TREE [facility]INNER): - reviewed MRI with some improvement, but note of unchanged epidural abscess - no change to OPAT today with plan to continue IV Dapto without firm stop planned, need for repeat imaging in 4 weeks prior to clinic follow up - RN communicating no change to POC to GA/, and transitioning PICC line and lab collection to her new facility which patient reports she will be moving into today ([facility] in [place], [place]) - ordered repeat MRI of total spine with and WO contrast for re-eval of spinal epidural abscesses; but also ordered MRI brain with c/f previously 02/03 MRI mentioned ...persistent circumferential enhancement along the anterior and dorsal aspect of the epidural spaces with further extension to the posterior fossa and supratentorial region. - RN working on coordination with MRI patient needing neuro to check shunt post imaging which limits ability to obtain baseline MRI of brain sooner than 4 week repeat total spine - discussed with patient pending development of fever/chills, AMS, acute neck/back pain need for ER eval - Discussed with patient the rational for treatment, culture results, risk of recurrent infection, signs/symptoms of recurrent infection, and to contact ID clinic with any questions or concerns Assessment & Plan (02/10/2025 9:43 AM CDT): After initially presenting with back pain and spinal imaging showing signs of OM and spinal abscess, she underwent treatment with IV antibiotics for 6 weeks (12/27- 02/07), with ID recommending repeat imaging toward the end of her treatment. Thus, MRI C-spine on 02/03 was performed and read with interval mildly decrease in size of the dorsal epidural abscess at C2-C3 level with persistent circumferential enhancement along the anterior and dorsal aspect of the epidural spaces with further extension to the posterior fossa and supratentorial region. Worsening of the marrow edema and enhancement involving right C7-T1 facet joint, concerning for septic arthritis. Persistent small dorsal epidural abscess at the level of T1-T2 with interval mildly increasing edema and enhancement in the posterior elements of T2. Interventional radiology was been consulted for aspiration of the C2-C3 lesion for information to guide further treatment, however on AM of 02/07 they stated that they would not be performing the aspiration anymore because of the nature of the lesion .C2-C3 area and that it is extremely high risk and low yield. In addition a long eliquis washout period would be needed. Moreover, there is high risk for causing meningitis. Overall they will NOT perform the procedure, and they feel similarly about the thoracic area as well. They have canceled the consult. -NSGY signed off and will f/u in 1 mo outpatient -Antibiotic and imaging plan above Assessment & Plan (02/09/2025 7:34 AM CDT): After initially presenting with back pain and spinal imaging showing signs of OM and spinal abscess, she underwent treatment with IV antibiotics for 6 weeks (12/27- 02/07), with ID recommending repeat imaging toward the end of her treatment. Thus, MRI C-spine on 02/03 was performed and read with interval mildly decrease in size of the dorsal epidural abscess at C2-C3 level with persistent circumferential enhancement along the anterior and dorsal aspect of the epidural spaces with further extension to the posterior fossa and supratentorial region. Worsening of the marrow edema and enhancement involving right C7-T1 facet joint, concerning for septic arthritis. Persistent small dorsal epidural abscess at the level of T1-T2 with interval mildly increasing edema and enhancement in the posterior elements of T2. Interventional radiology was been consulted for aspiration of the C2-C3 lesion for information to guide further treatment, however on AM of 02/07 they stated that they would not be performing the aspiration anymore because of the nature of the lesion .C2-C3 area and that it is extremely high risk and low yield. In addition a long eliquis washout period would be needed. Moreover, there is high risk for causing meningitis. Overall they will NOT perform the procedure, and they feel similarly about the thoracic area as well. They have canceled the consult. -HELENGY signed off and will f/u in 1 mo outpatient -Antibiotic and imaging plan above Assessment & Plan (02/08/2025 1:31 PM CDT): After initially presenting with back pain and spinal imaging showing signs of OM and spinal abscess, she underwent treatment with IV antibiotics for 6 weeks (12/27- 02/07), with ID recommending repeat imaging toward the end of her treatment. Thus, MRI C-spine on 02/03 was performed and read with interval mildly decrease in size of the dorsal epidural abscess at C2-C3 level with persistent circumferential enhancement along the anterior and dorsal aspect of the epidural spaces with further extension to the posterior fossa and supratentorial region. Worsening of the marrow edema and enhancement involving right C7-T1 facet joint, concerning for septic arthritis. Persistent small dorsal epidural abscess at the level of T1-T2 with interval mildly increasing edema and enhancement in the posterior elements of T2. Interventional radiology was been consulted for aspiration of the C2-C3 lesion for information to guide further treatment, however on AM of 02/07 they stated that they would not be performing the aspiration anymore because of the nature of the lesion .C2-C3 area and that it is extremely high risk and low yield. In addition a long eliquis washout period would be needed. Moreover, there is high risk for causing meningitis. Overall they will NOT perform the procedure, and they feel similarly about the thoracic area as well. They have canceled the consult. -JANIE signed off and will f/u in 1 mo outpatient -Antibiotic and imaging plan above Assessment & Plan (02/07/2025 3:57 PM CDT): After initially presenting with back pain and spinal imaging showing signs of OM and spinal abscess, she underwent treatment with IV antibiotics for several weeks, with ID recommending repeat imaging toward the end of her treatment. Thus, MRI C-spine on 02/03 was performed and read with interval mildly decrease in size of the dorsal epidural abscess at C2-C3 level with persistent circumferential enhancement along the anterior and dorsal aspect of the epidural spaces with further extension to the posterior fossa and supratentorial region. Worsening of the marrow edema and enhancement involving right C7-T1 facet joint, concerning for septic arthritis. Persistent small dorsal epidural abscess at the level of T1-T2 with interval mildly increasing edema and enhancement in the posterior elements of T2. Interventional radiology was been consulted for aspiration of the C2-C3 lesion for information to guide further treatment, however on AM of 02/07 they stated that they would not be performing the aspiration anymore because of the nature of the lesion and b/c she has been on eliquis - discussed extensively with IR on 02/07 over the phone: - they feel there is only maybe 1 cc of fluid in the C2-C3 area and that it is extremely high risk and low yield. In addition a long eliquis washout period would be needed. Moreover, there is high risk for causing meningitis. Overall they will NOT perform the procedure, and they feel similarly about the thoracic area as well. They have canceled the consult. - continue ceftriaxone for now Assessment & Plan (02/06/2025 3:30 PM CDT): After initially presenting with back pain and spinal imaging showing signs of OM and spinal abscess, she underwent treatment with IV antibiotics for several weeks, with ID recommending repeat imaging toward the end of her treatment. Thus, MRI C-spine on 02/03 was performed and read with Interval mildly decrease in size of the dorsal epidural abscess at C2-C3 level with persistent circumferential enhancement along the anterior and dorsal aspect of the epidural spaces with further extension to the posterior fossa and supratentorial region. Worsening of the marrow edema and enhancement involving right C7-T1 facet joint, concerning for septic arthritis. Persistent small dorsal epidural abscess at the level of T1-T2 with interval mildly increasing edema and enhancement in the posterior elements of T2. - Interventional radiology has been consulted for aspiration of the C2-C3 lesion for information to guide further treatment - continue ceftriaxone for now Assessment & Plan (02/05/2025 8:02 PM CDT): - ID recommended repeat spinal imaging towards end of treatment - MRI C-spine on 02/03 read with Interval mildly decrease in size of the dorsal epidural abscess at C2-C3 level with persistent circumferential enhancement along the anterior and dorsal aspect of the epidural spaces with further extension to the posterior fossa and supratentorial region. Worsening of the marrow edema and enhancement involving right C7-T1 facet joint, concerning for septic arthritis. Persistent small dorsal epidural abscess at the level of T1-T2 with interval mildly increasing edema and enhancement in the posterior elements of T2. - Per ID needs NSGY vs IR sampling; NSGY decided on IR eval, tentatively for Friday - Continue ceftriaxone for now Assessment & Plan (01/21/2025 12:31 PM CDT): Patient presented with multifocal embolic phenomena in multiple vascular territories in the brain, multifocal subdural empyemas, vertebral osteomyelitis. Neurosurgery assessed her on 01/02; stated the pachymeningeal enhancement on her MRI is unlikely to be meningitis and could represent low pressure from her [employer] shunt; unlikely to represent the cause of her AMS. 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 It is unclear whether her [employer] shunt is also involved in this process, but shunt cultures have been ngtd. Unfortunately her mental status has greatly declined during this admission; possibly 2/2 uremia vs new strokes, neurology consulted. AMS improved. Patient was started on antibiotics at OSH and has continued since admission on 12/31 at [facility]. She has continued to have embolic events despite being on broad antibiotic coverage. We are concerned that the vegetation is large and unstable enough that she will continue to embolize and antibiotics alone will not be sufficient. It was ultimately decided to proceed with surgical intervention. Diagnostically, we have pursued the following: - Blood cultures 12/28, 12/30, 01/03 all with no growth - Bone biopsy of areas of spinal osteo (path cw osteo, cultures with no growth) - Subdural fluid collections are not accessible to IR - [employer] shunt tap CSF cultures with no growth - 16S of [employer] shunt without DNA detected. -Crag, Bartonella, Q-fever, and blasto antibody negative. - histo UAg, histo Ab negative - Karius sequencing of blood - positive for streptococcus agalactiae Patient went to the OR 01/17 with CTS for MVR, JOSELYN ligation and CABG x2. Operative cultures obtained with NGTD and no organism seen. 16s in progress. Karius positive for streptococcus agalactiae. Recommend stopping doxycycline and continuing daptomycin and ceftriaxone to complete 6 weeks of IV antibiotics (12/27 - 02/07). Reviewed ID involvement in care with patient. Her mental status has improved today compared to yesterday. Was unable to remember which facility she was at but knew it was a medical facility but was otherwise able to answer all other questions. Called daughter, Ora, and updated on ID findings and plan going forward. Questions answered as needed. Recommendations: - d/c doxycycline - Continue Daptomycin and ceftriaxone -While on the IV antibiotics, please obtain at least a weekly cbc with diff, weekly CMP, and weekly CK - Recommend 6 weeks of antibiotics (12/27 - 02/07) -Patient will need repeat spinal imaging to assess the subdural empyemas towards the end of treatment, prior to stopping the antibiotics to assess for improvement. -Will follow up on 16s -Thank you for allowing us to participate in the care of this patient. For questions or concerns, please do not hesitate to reach out. -Please place ambulatory referral for OPAT Assessment & Plan (01/20/2025 11:14 AM CDT): Patient presented with multifocal embolic phenomena in multiple vascular territories in the brain, multifocal subdural empyemas, vertebral osteomyelitis. Neurosurgery assessed her on 01/02; stated the pachymeningeal enhancement on her MRI is unlikely to be meningitis and could represent low pressure from her [employer] shunt; unlikely to represent the cause of her AMS. 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 It is unclear whether her [employer] shunt is also involved in this process, but shunt cultures have been ngtd. Unfortunately her mental status has greatly declined during this admission; possibly 2/2 uremia vs new strokes, neurology consulted. AMS improved. Patient was started on antibiotics at OSH and has continued since admission on 12/31 at [facility]. She has continued to have embolic events despite being on broad antibiotic coverage. We are concerned that the vegetation is large and unstable enough that she will continue to embolize and antibiotics alone will not be sufficient. It was ultimately decided to proceed with surgical intervention. Diagnostically, we have pursued the following: - Blood cultures 12/28, 12/30, 01/03 all with no growth - Bone biopsy of areas of spinal osteo (path cw osteo, cultures with no growth) - Subdural fluid collections are not accessible to IR - [employer] shunt tap CSF cultures with no growth - 16S of [employer] shunt without DNA detected. -Crag, Bartonella, Q-fever, and blasto antibody negative. - histo UAg, histo Ab negative - Karius sequencing of blood - positive for streptococcus agalactiae Patient went to the OR yesterday with CTS for MVR, patch repair of abscess cavity, JOSELYN ligation and CABG x2. Operative cultures obtained with NGTD and no organism seen. 16s in progress. Karius positive for streptococcus agalactiae. On assessment, patient able to answer simple questions. Asking about a stool softener, then reporting she doesn't need one. When specifically asked, denies n/v/d, itching or rash. Family not at bedside to provide updates. Recommendations: - Continue Daptomycin, ceftriaxone, doxycycline -While on the IV antibiotics, please obtain at least a weekly cbc with diff, weekly CMP, and weekly CK - Follow up pending results -Thank you for allowing us to participate in the care of this patient. For questions or concerns, please do not hesitate to reach out. Assessment & Plan (01/18/2025 1:50 PM CDT): Patient presented with multifocal embolic phenomena in multiple vascular territories in the brain, multifocal subdural empyemas, vertebral osteomyelitis. Neurosurgery assessed her on 01/02; stated the pachymeningeal enhancement on her MRI is unlikely to be meningitis and could represent low pressure from her [employer] shunt; unlikely to represent the cause of her AMS. 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 It is unclear whether her [employer] shunt is also involved in this process, but shunt cultures have been ngtd. Unfortunately her mental status has greatly declined during this admission; possibly 2/2 uremia vs new strokes, neurology consulted. AMS improved. Patient was started on antibiotics at OSH and has continued since admission on 12/31 at [facility]. She has continued to have embolic events despite being on broad antibiotic coverage. We are concerned that the vegetation is large and unstable enough that she will continue to embolize and antibiotics alone will not be sufficient. It was ultimately decided to proceed with surgical intervention. Diagnostically, we have pursued the following: - Blood cultures 12/28, 12/30, 01/03 all with no growth - Bone biopsy of areas of spinal osteo (path cw osteo, cultures with no growth) - Subdural fluid collections are not accessible to IR - [employer] shunt tap CSF cultures with no growth - 16S of [employer] shunt without DNA detected. -Crag, Bartonella, Q-fever, and blasto antibody negative. - histo UAg, histo Ab negative - Karius sequencing of blood - positive for streptococcus agalactiae Patient went to the OR yesterday with CTS for MVR, patch repair of abscess cavity, JOSELYN ligation and CABG x2. Operative cultures obtained with NGTD and no organism seen. Linezolid changed to daptomycin and ceftriaxone changed to Q24H as recommended. At the time of seeing patient and discussing with family, Karius results negative. Results have since come back and positive for streptococcus agalactiae. Patient on antibiotics that will appropriately treat this organism. Will follow up on heart valve results. Recommendations: - Continue Daptomycin, ceftriaxone, doxycycline -While on the IV antibiotics, please obtain at least a weekly cbc with diff, weekly CMP, and weekly CK - Follow up pending results -Thank you for allowing us to participate in the care of this patient. For questions or concerns, please do not hesitate to reach out. Assessment & Plan (01/17/2025 7:27 AM CDT): Hx NPH s/p shunt 2021, MRI conditional. Developed altered mental status characterized by confusion and lethargy at OSH. On chart review, appears to be fully functional at baseline. Had acute on chronic hyponatremia to 122, baseline upper 120s. Lytes otherwise unremarkable and euglycemic. TSH 2.75, fT4 1.44. ESR 50, CRP 317->193, ferritin 806. Noninfectious UA at OSH. EEG with diffuse slowing, no focal slowing or epileptiform changes. Ehrlichia, lyme, and anaplasma negative and s/p doxycycline 12/29-12/31. 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 AMS likely multifactorial iso hyponatremia, new infarcts, and potential infection PLAN: - Continue Ceftriaxone 2gm Q12, Linezolid 600mg Q12, doxy 100mg Q12 - Neurology consulted - aspirin 81 mg qD (will resume after MSK on 01/04) - crestor 40 mg qD - Neurosurgery consulted, so surgical indication at this time - Delirium precautions, avoid sedating medications Assessment & Plan (01/16/2025 8:15 AM CDT): Hx NPH s/p shunt 2021, MRI conditional. Developed altered mental status characterized by confusion and lethargy at OSH. On chart review, appears to be fully functional at baseline. Had acute on chronic hyponatremia to 122, baseline upper 120s. Lytes otherwise unremarkable and euglycemic. TSH 2.75, fT4 1.44. ESR 50, CRP 317->193, ferritin 806. Noninfectious UA at OSH. EEG with diffuse slowing, no focal slowing or epileptiform changes. Ehrlichia, lyme, and anaplasma negative and s/p doxycycline 12/29-12/31. 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 AMS likely multifactorial iso hyponatremia, new infarcts, and potential infection PLAN: - Continue Ceftriaxone 2gm Q12, Linezolid 600mg Q12, doxy 100mg Q12 - Neurology consulted - aspirin 81 mg qD (will resume after MSK on 01/04) - crestor 40 mg qD - stroke follow up; SMART consult - BP goal: gradual normotension - Neurosurgery consulted, so surgical indication at this time - Delirium precautions, avoid sedating medications Assessment & Plan (01/15/2025 8:02 AM CDT): Hx NPH s/p shunt 2021, MRI conditional. Developed altered mental status characterized by confusion and lethargy at OSH. On chart review, appears to be fully functional at baseline. Had acute on chronic hyponatremia to 122, baseline upper 120s. Lytes otherwise unremarkable and euglycemic. TSH 2.75, fT4 1.44. ESR 50, CRP 317->193, ferritin 806. Noninfectious UA at OSH. EEG with diffuse slowing, no focal slowing or epileptiform changes. Ehrlichia, lyme, and anaplasma negative and s/p doxycycline 12/29-12/31. 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 AMS likely multifactorial iso hyponatremia, new infarcts, and potential infection PLAN: - Continue Ceftriaxone 2gm Q12, Linezolid 600mg Q12, doxy 100mg Q12 - Neurology consulted - aspirin 81 mg qD (will resume after MSK on 01/04) - crestor 40 mg qD - stroke follow up; SMART consult - BP goal: gradual normotension - Neurosurgery consulted, so surgical indication at this time - Delirium precautions, avoid sedating medications Assessment & Plan (01/14/2025 10:44 AM CDT): Hx NPH s/p shunt 2021, MRI conditional. Developed altered mental status characterized by confusion and lethargy at OSH. On chart review, appears to be fully functional at baseline. Had acute on chronic hyponatremia to 122, baseline upper 120s. Lytes otherwise unremarkable and euglycemic. TSH 2.75, fT4 1.44. ESR 50, CRP 317->193, ferritin 806. Noninfectious UA at OSH. EEG with diffuse slowing, no focal slowing or epileptiform changes. Ehrlichia, lyme, and anaplasma negative and s/p doxycycline 12/29-12/31. 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 AMS likely multifactorial iso hyponatremia, new infarcts, and potential infection PLAN: - Continue Ceftriaxone 2gm Q12, Linezolid 600mg Q12, doxy 100mg Q12 - Neurology consulted - obtain CTA head and neck - aspirin 81 mg qD (will resume after MSK on 01/04) - crestor 40 mg qD - stroke follow up; SMART consult - BP goal: gradual normotension - Neurosurgery consulted, so surgical indication at this time - Delirium precautions, avoid sedating medications Assessment & Plan (01/14/2025 6:47 AM CDT): Hx NPH s/p shunt 2021, MRI conditional. Developed altered mental status characterized by confusion and lethargy at OSH. On chart review, appears to be fully functional at baseline. Had acute on chronic hyponatremia to 122, baseline upper 120s. Lytes otherwise unremarkable and euglycemic. TSH 2.75, fT4 1.44. ESR 50, CRP 317->193, ferritin 806. Noninfectious UA at OSH. EEG with diffuse slowing, no focal slowing or epileptiform changes. Ehrlichia, lyme, and anaplasma negative and s/p doxycycline 12/29-12/31. 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 AMS likely multifactorial iso hyponatremia, new infarcts, and potential infection PLAN: - Continue Ceftriaxone 2gm Q12, Linezolid 600mg Q12, doxy 100mg Q12 - Neurology consulted - obtain CTA head and neck - aspirin 81 mg qD (will resume after MSK on 01/04) - crestor 40 mg qD - stroke follow up; SMART consult - BP goal: gradual normotension - Neurosurgery consulted, so surgical indication at this time - Delirium precautions, avoid sedating medications Assessment & Plan (01/13/2025 1:39 PM CDT): Hx NPH s/p shunt 2021, MRI conditional. Developed altered mental status characterized by confusion and lethargy at OSH. On chart review, appears to be fully functional at baseline. Had acute on chronic hyponatremia to 122, baseline upper 120s. Lytes otherwise unremarkable and euglycemic. TSH 2.75, fT4 1.44. ESR 50, CRP 317->193, ferritin 806. Noninfectious UA at OSH. EEG with diffuse slowing, no focal slowing or epileptiform changes. Ehrlichia, lyme, and anaplasma negative and s/p doxycycline 12/29-12/31. 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 AMS likely multifactorial iso hyponatremia, new infarcts, and potential infection PLAN: - Continue Ceftriaxone 2gm Q12, Linezolid 600mg Q12, doxy 100mg Q12 - Neurology consulted - obtain CTA head and neck - aspirin 81 mg qD (will resume after MSK on 01/04) - crestor 40 mg qD - stroke follow up; SMART consult - BP goal: gradual normotension - Neurosurgery consulted, so surgical indication at this time - Delirium precautions, avoid sedating medications Assessment & Plan (01/12/2025 1:17 PM CDT): Patient presented with multifocal embolic phenomena in multiple vascular territories in the brain, multifocal subdural empyemas, vertebral osteomyelitis. Neurosurgery assessed her on 01/02; stated the pachymeningeal enhancement on her MRI is unlikely to be meningitis and could represent low pressure from her [employer] shunt; unlikely to represent the cause of her AMS. 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 It is unclear whether her [employer] shunt is also involved in this process, but shunt cultures have been ngtd. Unfortunately her mental status has greatly declined during this admission; possibly 2/2 uremia vs new strokes, neurology consulted. Diagnostically, we have pursued the following: - Blood cultures 12/28, 12/30, 01/03 all with no growth - Bone biopsy of areas of spinal osteo (path cw osteo, cultures with no growth) - Subdural fluid collections are not accessible to IR - [employer] shunt tap CSF cultures with no growth - 16S of [employer] shunt without DNA detected. -Crag, Bartonella, Q-fever, and blasto antibody negative. - histo UAg, histo Ab pending - Karius sequencing of blood pending Mental status stable. Patient sleeping on assessment today, appears comfortable. Plan for [facility] today on review. Brief CTS note comments on holding off on surgical intervention 2/2 subdural empyema, minimal valve dysfunction and c/f possible endocarditis recurrence of new valve in light of of empyema. Patient was started on antibiotics at OSH and has continued since admission on 12/31 at [facility]. She has continued to have embolic events despite being on broad antibiotic coverage. We are concerned that the vegetation is large and unstable enough that she will continue to embolize and antibiotics alone will not be sufficient. ID attending has reached out to CTS attending to further discuss. Updated patient's daughter. Of note, daughter is still wanting to discuss with CTS Recommendations: - Continue linezolid, ceftriaxone, doxycycline -While on the IV antibiotics, please obtain at least a weekly cbc with diff and weekly CMP. - Follow up pending results - Appreciate CTS recs. If plan is for surgical intervention, please obtain operative cultures and 16s. - Planning on 2 weeks of COMPOSITION MOLDER penetrating coverage in the event she does have meningitis if possible - Will need 6 weeks of antibiotics for treatment of endocarditis Assessment & Plan (01/12/2025 9:38 AM CDT): - Continue antibiotics - Follow up ID recs Assessment & Plan (01/12/2025 11:13 AM CDT): Hx NPH s/p shunt 2021, MRI conditional. Developed altered mental status characterized by confusion and lethargy at OSH. On chart review, appears to be fully functional at baseline. Had acute on chronic hyponatremia to 122, baseline upper 120s. Lytes otherwise unremarkable and euglycemic. TSH 2.75, fT4 1.44. ESR 50, CRP 317->193, ferritin 806. Noninfectious UA at OSH. EEG with diffuse slowing, no focal slowing or epileptiform changes. Ehrlichia, lyme, and anaplasma negative and s/p doxycycline 12/29-12/31. 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 AMS likely multifactorial iso hyponatremia, new infarcts, and potential infection 01/11 15:30 patient became altered, AOx0, confused and intermittently unable to follow directions. Neuro exam concerning for weakness R>L and AMS. Stroke workup negative, head CT negative. BG, Na wnl. Patient's symptoms improved. PLAN: - Continue Ceftriaxone 2gm Q12, Linezolid 600mg Q12, doxy 100mg Q12 - Neurology consulted - aspirin 81 mg qD (will resume after MSK on 01/04) - crestor 40 mg qD - stroke follow up; SMART consult - BP goal: gradual normotension - Neurosurgery consulted, no surgical indication at this time - Delirium precautions, avoid sedating medications Assessment & Plan (01/11/2025 12:43 PM CDT): Patient presented with multifocal embolic phenomena in multiple vascular territories in the brain, multifocal subdural empyemas, vertebral osteomyelitis. Neurosurgery assessed her on 01/02; stated the pachymeningeal enhancement on her MRI is unlikely to be meningitis and could represent low pressure from her [employer] shunt; unlikely to represent the cause of her AMS. 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 It is unclear whether her [employer] shunt is also involved in this process, but shunt cultures have been ngtd. Unfortunately her mental status has greatly declined during this admission; possibly 2/2 uremia vs new strokes, neurology consulted. Diagnostically, we have pursued the following: - Blood cultures 12/28, 12/30, 01/03 all with no growth - Bone biopsy of areas of spinal osteo (path cw osteo, cultures with no growth) - Subdural fluid collections are not accessible to IR - [employer] shunt tap CSF cultures with no growth - 16S of CAL[employer]ER shunt pending -Crag, Bartonella, Q-fever, and blasto antibody negative. - histo UAg, histo Ab pending - Karius sequencing of blood pending Mental status stable. Patient sleeping on assessment today, but woke up and answered simple questions. Reviewed ID involvement in care with patient and daughter. Discussed antibiotic plans and support for CTS intervention. Panorex obtained yesterday and negative. On chart review, patient scheduled for 01/14 for OR. Please send cultures. Patient and daughter with many surgical questions and requesting to speak to CTS. Recommendations: - Continue linezolid, ceftriaxone, doxycycline -While on the IV antibiotics, please obtain at least a weekly cbc with diff and weekly CMP. - Follow up pending results - Appreciate CTS recs. If plan is for surgical intervention, please obtain operative cultures and 16s. - Planning on 2 weeks of COMPOSITION MOLDER penetrating coverage in the event she does have meningitis if possible - Will need 6 weeks of antibiotics for treatment of endocarditis Assessment & Plan (01/11/2025 8:17 AM CDT): - Continue antibiotics - Follow up ID recs Assessment & Plan (01/11/2025 6:48 AM CDT): - Continue antibiotics - Follow up ID recs Assessment & Plan (01/10/2025 11:23 AM CDT): Patient presented with multifocal embolic phenomena in multiple vascular territories in the brain, multifocal subdural empyemas, vertebral osteomyelitis. Neurosurgery assessed her on 01/02; stated the pachymeningeal enhancement on her MRI is unlikely to be meningitis and could represent low pressure from her [employer]ER shunt; unlikely to represent the cause of her AMS. 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 It is unclear whether her [employer]ER shunt is also involved in this process, but shunt cultures have been ngtd. Unfortunately her mental status has greatly declined during this admission; possibly 2/2 uremia vs new strokes, neurology consulted. Crag negative. Diagnostically, we have pursued the following: - Blood cultures 12/28, 12/30, 01/03 all with no growth - Bone biopsy of areas of spinal osteo (path cw osteo, cultures with no growth) - Subdural fluid collections are not accessible to IR - [employer]ER shunt tap CSF cultures with no growth - 16S of CAL[employer] W[employer] TENDER shunt pending - Culture-negative endocarditis non-invasive workup pending (histo UAg, bartonella Ab, Q fever Ab, histo/blasto Ab) - Karius sequencing of blood pending Mental status has significantly improved. Reviewed ID involvement in care with patient and daughter. Discussed antibiotic plans and support for CTS intervention. Patient tolerating antibiotics well, questions answered as able. Patient reports her last dental cleaning was in June. Denies any dental pain. Does reports she has not been very good about taking care of her teeth starting in October. Recommend obtaining Panorex to assess for possible source. Recommendations: - Continue linezolid, ceftriaxone, doxycycline -While on the IV antibiotics, please obtain at least a weekly cbc with diff and weekly CMP. - Follow up pending Bartonella, Q-fever, histo antibody and urine histo antigen, blasto antibody, and a crypto antigen - Follow up pending CSF 16S and Karius blood test -Please obtain panorex - Appreciate CTS recs. If plan is for surgical intervention, please obtain operative cultures and 16s. - Planning on 2 weeks of COMPOSITION MOLDER penetrating coverage in the event she does have meningitis - Will need 6 weeks of antibiotics for treatment of endocarditis Assessment & Plan (01/10/2025 6:47 AM CDT): - Continue antibiotics - Follow up ID recs Assessment & Plan (01/09/2025 6:44 AM CDT): - Continue antibiotics - Follow up ID recs Assessment & Plan (01/08/2025 5:15 PM CDT): Patient presented with multifocal embolic phenomena in multiple vascular territories in the brain, multifocal subdural empyemas, vertebral osteomyelitis. 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 It is unclear whether her CAL[employer]ER W[employer]ER shunt is also involved in this process, but shunt cultures have been ngtd. Unfortunately her mental status has greatly declined during this admission; possibly 2/2 uremia vs new strokes, neurology consulted. Diagnostically, we have pursued the following: - Blood cultures 12/28, 12/30, 01/03 all with no growth - Bone biopsy of areas of spinal osteo (path cw osteo, cultures with no growth) - Subdural fluid collections are not accessible to IR - CALEND[employer] W[employer] UP T[employer]ER shunt tap CSF cultures with no growth - 16S of CALEND[employer] W[employer] UP TENDER shunt pending - Culture-negative endocarditis non-invasive workup pending (histo UAg, bartonella Ab, Q fever Ab, histo/blasto Ab, Crag) - Will send Karius sequencing of blood Therapeutically: - Ongoing CT surgery assessment to determine surgical candidacy. In addition to addressing the vegetation itself, this would also enable us to obtain cardiac tissue for 16S which would likely be the highest diagnostic yield test in her case. However, repeat MRI is in progress to stratify neurological risk of anticoagulation for this surgery, she may be too high risk. - Continue broad-spectrum COMPOSITION MOLDER-penetrating antibiotics (linezolid 600mg BID + ceftriaxone 2g BID) + doxycycline 100mg BID for atypical coverage Neurosurgery assessed her on 01/02; stated the pachymeningeal enhancement on her MRI is unlikely to be meningitis and could represent low pressure from her CAL[employer] W[employer] UP TENDER shunt; unlikely to represent the cause of her AMS. Imaging has been concerning for discitis-osteomyelitis of T1-T2 and T12-L1 as well as subdural empyemas of the C-spine and T-spine. Recommendations: - Continue linezolid, ceftriaxone, doxycycline -While on the IV antibiotics, please obtain at least a weekly cbc with diff and weekly CMP. - Follow up pending Bartonella, Q-fever, histo antibody and urine histo antigen, blasto antibody, and a crypto antigen - Follow up pending CSF 16S - Obtain sample for Karius blood test tomorrow am Assessment & Plan (01/08/2025 7:02 AM CDT): - Continue antibiotics - Follow up ID recs Assessment & Plan (01/07/2025 12:27 PM CDT): - 01/02 MRI Brain/C-spine W WO Contrast 1. Multiple punctate acute infarcts of the right internal capsule, right centrum cemiovale, L parietal white matter and L cerebellar hemisphere involving multiple vascular territories, raising suspicion for an embolic source 2. Disruption of the ligamentum flavum at C2 3. Diffuse pachymeningeal thickening of the brain and C-spine with cervical spine subdural hemorrhage extending from C2 to C3-C4 resulting in severe canal stenosis (likely shunt related) 4.Addendum (neurology note) : Upon reexamination of the imaging and follow-up thoracic spine MRI, the findings in the cervical spine likely represents an alternative process: Given presence of findings of discitis as well as within the thoracic spine and high CRP levels, the dorsal subdural collection at the craniocervical junction (at the level of C1-C2), likely represent another focus of subdural empyema. Assessment & Plan (01/07/2025 11:18 AM CDT): - Continue antibiotics - Follow up ID recs Assessment & Plan (01/07/2025 3:48 PM CDT): - Continue antibiotics - Follow up ID recs -IR unable to access fluid Assessment & Plan (01/06/2025 11:29 AM CDT): - 01/02 MRI Brain/C-spine W WO Contrast 1. Multiple punctate acute infarcts of the right internal capsule, right centrum cemiovale, L parietal white matter and L cerebellar hemisphere involving multiple vascular territories, raising suspicion for an embolic source 2. Disruption of the ligamentum flavum at C2 3. Diffuse pachymeningeal thickening of the brain and C-spine with cervical spine subdural hemorrhage extending from C2 to C3-C4 resulting in severe canal stenosis (likely shunt related) 4.Addendum (neurology note) : Upon reexamination of the imaging and follow-up thoracic spine MRI, the findings in the cervical spine likely represents an alternative process: Given presence of findings of discitis as well as within the thoracic spine and high CRP levels, the dorsal subdural collection at the craniocervical junction (at the level of C1-C2), likely represent another focus of subdural empyema. Assessment & Plan (01/06/2025 9:01 AM CDT): - Continue antibiotics - Follow up ID recs Assessment & Plan (01/06/2025 6:54 AM CDT): - Continue antibiotics - Follow up ID recs Assessment & Plan (01/05/2025 1:14 PM CDT): - 01/02 MRI Brain/C-spine W WO Contrast 1. Multiple punctate acute infarcts of the right internal capsule, right centrum cemiovale, L parietal white matter and L cerebellar hemisphere involving multiple vascular territories, raising suspicion for an embolic source 2. Disruption of the ligamentum flavum at C2 3. Diffuse pachymeningeal thickening of the brain and C-spine with cervical spine subdural hemorrhage extending from C2 to C3-C4 resulting in severe canal stenosis (likely shunt related) 4.Addendum (neurology note) : Upon reexamination of the imaging and follow-up thoracic spine MRI, the findings in the cervical spine likely represents an alternative process: Given presence of findings of discitis as well as within the thoracic spine and high CRP levels, the dorsal subdural collection at the craniocervical junction (at the level of C1-C2), likely represent another focus of subdural empyema. 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 She presented with hyponatremia to 122, her baseline is upper 120s. Lytes otherwise unremarkable and euglycemic. TSH 2.75, fT4 1.44. ESR 50, CRP 317->193, ferritin 806. Noninfectious UA. EEG with diffuse slowing, no focal slowing or epileptiform changes. Ehrlichia, lyme, and anaplasma negative and s/p doxycycline 12/29-12/31. Brain MRI on 01/01 was remarkable for multiple punctate acute infarcts of the right internal capsule, right centrum semiovale bowel, left parietal white matter, and left cerebellar hemisphere involving multiple vascular territories, raising suspicion for an embolic source. Diffuse pachymeningeal thickening of the brain and cervical spine with cervical spine subdural hemorrhage extending from C2 to C3-C4 resulting in severe canal stenosis. MRI Spine thoracic and lumbar showed discitis and osteomyelitis at T1-T2 and T12-L1. Fluid filled subdural space possibly an empyema spinal infection. Initially were concerned for meningoencephalitic process and brain MRI revealed multifocal punctate infarcts. The infarcts are likely occurring within the prior 3-4 days (did not all occur on the day, varying ages). Given its multivascular territories, etiology may be a septic emboli from cardiac source. Multifocal infarcts are also likely contributing to her altered mental status, however AMS is likely multifactorial in the setting of hyponatremia, new infarcts, and possible meningitis/infection spread. Her WBCs are holding stable at 11.79. Blood culture has no growths as of date. PLAN: - Continue empirical meningitis treatment, per neurology and ID consults: - Current abx regimen: - Discontinue Acyclovir and Ampicillin - Continue Cefepime 2gIV q12h - Continue Vancomycin 15mg/kg IV q12h - Bone biopsy with [facility] IR yesterday -follow up cultures - JANELLE for suspected septic emboli tentatively scheduled for 01/07 - Neurology consulted - aspirin 81 mg - crestor 40 mg daily - Pt will need loop monitor on discharge pending JANELLE results - stroke follow up - BP goal: gradual normotension - Neurosurgery consulted: discussion of feasibility of vp software engineering shunt fluid sampling. - Delirium precautions, avoid sedating medications - Ophthalmology consulted for acute visual changes/floaters and evaluation for possible infectious spread to eyes, no intervention at this time. Assessment & Plan (01/04/2025 4:33 PM CDT): - Continue antibiotics - Follow up ID recs Assessment & Plan (01/04/2025 3:15 PM CDT): - 01/02 MRI Brain/C-spine W WO Contrast 1. Multiple punctate acute infarcts of the right internal capsule, right centrum cemiovale, L parietal white matter and L cerebellar hemisphere involving multiple vascular territories, raising suspicion for an embolic source 2. Disruption of the ligamentum flavum at C2 3. Diffuse pachymeningeal thickening of the brain and C-spine with cervical spine subdural hemorrhage extending from C2 to C3-C4 resulting in severe canal stenosis (likely shunt related) 4.Addendum (neurology note) : Upon reexamination of the imaging and follow-up thoracic spine MRI, the findings in the cervical spine likely represents an alternative process: Given presence of findings of discitis as well as within the thoracic spine and high CRP levels, the dorsal subdural collection at the craniocervical junction (at the level of C1-C2), likely represent another focus of subdural empyema. 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 She presented with hyponatremia to 122, her baseline is upper 120s. Lytes otherwise unremarkable and euglycemic. TSH 2.75, fT4 1.44. ESR 50, CRP 317->193, ferritin 806. Noninfectious UA. EEG with diffuse slowing, no focal slowing or epileptiform changes. Ehrlichia, lyme, and anaplasma negative and s/p doxycycline 12/29-12/31. Brain MRI on 01/01 was remarkable for multiple punctate acute infarcts of the right internal capsule, right centrum semiovale bowel, left parietal white matter, and left cerebellar hemisphere involving multiple vascular territories, raising suspicion for an embolic source. Diffuse pachymeningeal thickening of the brain and cervical spine with cervical spine subdural hemorrhage extending from C2 to C3-C4 resulting in severe canal stenosis. MRI Spine thoracic and lumbar showed discitis and osteomyelitis at T1-T2 and T12-L1. Fluid filled subdural space possibly an empyema spinal infection. Initially were concerned for meningoencephalitic process and brain MRI revealed multifocal punctate infarcts. The infarcts are likely occurring within the prior 3-4 days (did not all occur on the day, varying ages). Given its multivascular territories, etiology may be a septic emboli from cardiac source. Multifocal infarcts are also likely contributing to her altered mental status, however AMS is likely multifactorial in the setting of hyponatremia, new infarcts, and possible meningitis/infection spread. Her WBCs are holding stable at 11.79. Blood culture has no growths as of date. PLAN: - Continue empirical meningitis treatment, per neurology and ID consults: - Current abx regimen: - Acyclovir 10mg/kg q12h - Ampicillin 2gIV q6h - Cefepime 2gIV q12h - Vancomycin 15mg/kg IV q12h - May consider discontinuing ampicillin in next 48 hrs if blood culture does not grow Listeria - Bone biopsy with [facility] IR today - IR will not perform LP given risk of subdural empyema seeding CSF space - JANELLE for suspected septic emboli tentatively scheduled for 01/07 - Neurology consulted - aspirin 81 mg (held, will follow up post bone biopsy) - crestor 40 mg daily - Pt will need loop monitor on discharge - stroke follow up - BP goal: gradual normotension - Neurosurgery consulted: no surgical interventions at this time, spine is stable, no activity restrictions. - Delirium precautions, avoid sedating medications - Ophthalmology consulted for acute visual changes/floaters and evaluation for possible infectious spread to eyes Assessment & Plan (01/03/2025 7:51 PM CDT): See above Stroke (cerebrum) 01/02/2025 Assessment & Plan (02/10/2025 9:43 AM CDT): - Brain MRI on 01/01 remarkable for multiple punctate acute infarcts of the right internal capsule, right centrum semiovale bowel, left parietal white matter, and left cerebellar hemisphere involving multiple vascular territories, raising suspicion for an embolic source. Diffuse pachymeningeal thickening of the brain and cervical spine with cervical spine subdural hemorrhage extending from C2 to C3-C4 resulting in severe canal stenosis - 01/08 MRI Brain Multiple punctate acute infarcts in the left cerebellum, right medial thalamus, right superior frontal lobe are new when compared with the prior scan. likely related to embolic disease - She remains on aspirin, atorvastatin , and fortunately is alert and oriented, and has no clear focal strength deficits of the legs or arms (and no facial droop) except for mild decrease in R division order technician strength - PM&R and neuro have seen patient, dc recommendation is IPR Assessment & Plan (02/09/2025 9:59 AM CDT): - Brain MRI on 01/01 remarkable for multiple punctate acute infarcts of the right internal capsule, right centrum semiovale bowel, left parietal white matter, and left cerebellar hemisphere involving multiple vascular territories, raising suspicion for an embolic source. Diffuse pachymeningeal thickening of the brain and cervical spine with cervical spine subdural hemorrhage extending from C2 to C3-C4 resulting in severe canal stenosis - 01/08 MRI Brain Multiple punctate acute infarcts in the left cerebellum, right medial thalamus, right superior frontal lobe are new when compared with the prior scan. likely related to embolic disease - She remains on aspirin, atorvastatin , and fortunately is alert and oriented, and has no clear focal strength deficits of the legs or arms (and no facial droop) except for mild decrease in R division order technician strength - PM&R and neuro have seen patient, dc recommendation is IPR Assessment & Plan (02/08/2025 1:31 PM CDT): - Brain MRI on 01/01 remarkable for multiple punctate acute infarcts of the right internal capsule, right centrum semiovale bowel, left parietal white matter, and left cerebellar hemisphere involving multiple vascular territories, raising suspicion for an embolic source. Diffuse pachymeningeal thickening of the brain and cervical spine with cervical spine subdural hemorrhage extending from C2 to C3-C4 resulting in severe canal stenosis - 01/08 MRI Brain Multiple punctate acute infarcts in the left cerebellum, right medial thalamus, right superior frontal lobe are new when compared with the prior scan. likely related to embolic disease - She remains on aspirin, atorvastatin , and fortunately is alert and oriented, and has no clear focal strength deficits of the legs or arms (and no facial droop) - PM&R and neuro have seen patient, dc recommendation is IPR Assessment & Plan (02/07/2025 12:02 PM CDT): - Brain MRI on 01/01 remarkable for multiple punctate acute infarcts of the right internal capsule, right centrum semiovale bowel, left parietal white matter, and left cerebellar hemisphere involving multiple vascular territories, raising suspicion for an embolic source. Diffuse pachymeningeal thickening of the brain and cervical spine with cervical spine subdural hemorrhage extending from C2 to C3-C4 resulting in severe canal stenosis - 01/08 MRI Brain Multiple punctate acute infarcts in the left cerebellum, right medial thalamus, right superior frontal lobe are new when compared with the prior scan. likely related to embolic disease - She remains on aspirin, atorvastatin , and fortunately is alert and oriented, and has no clear focal strength deficits of the legs or arms (and no facial droop) - PM&R has seen patient, dc recommendation is IPR Assessment & Plan (02/06/2025 3:30 PM CDT): - Brain MRI on 01/01 remarkable for multiple punctate acute infarcts of the right internal capsule, right centrum semiovale bowel, left parietal white matter, and left cerebellar hemisphere involving multiple vascular territories, raising suspicion for an embolic source. Diffuse pachymeningeal thickening of the brain and cervical spine with cervical spine subdural hemorrhage extending from C2 to C3-C4 resulting in severe canal stenosis - 01/08 MRI Brain Multiple punctate acute infarcts in the left cerebellum, right medial thalamus, right superior frontal lobe are new when compared with the prior scan. likely related to embolic disease - She remains on aspirin, apixaban and atorvastatin , and fortunately is alert and oriented, and has no clear focal strength deficits of the legs or arms (and no facial droop) - PM&R has seen patient, dc recommendation is IPR Assessment & Plan (02/05/2025 8:02 PM CDT): - Brain MRI on 01/01 remarkable for multiple punctate acute infarcts of the right internal capsule, right centrum semiovale bowel, left parietal white matter, and left cerebellar hemisphere involving multiple vascular territories, raising suspicion for an embolic source. Diffuse pachymeningeal thickening of the brain and cervical spine with cervical spine subdural hemorrhage extending from C2 to C3-C4 resulting in severe canal stenosis - 01/08 MRI Brain Multiple punctate acute infarcts in the left cerebellum, right medial thalamus, right superior frontal lobe are new when compared with the prior scan. likely related to embolic disease - aspirin, apixaban and atorvastatin - PM&R has seen patient, dc recommendation is IPR Assessment & Plan (02/04/2025 11:12 AM CDT): 01/08 MRI Brain 1. 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 The previously seen punctate infarct also visualized. These are likely to represent embolic source. 2. Right frontal approach ventriculostomy catheter with interval mild worsening of the dilatation of lateral and third ventricle. 3. Pachymeningeal enhancement. 4. Subdural enhancing collection at C1-C2 level likely representing subdural empyema. However the images are degraded by motion and not well evaluated. These findings were present on the prior scan and have not significantly changed. Neuro consulted, signed off on 01/10. -01/11: Acute AMS and questionable RLE weakness, code stroke, HCT negative -Monitor for mental status changes Assessment & Plan (01/17/2025 7:27 AM CDT): Hx NPH s/p shunt 2021, MRI conditional. Developed altered mental status characterized by confusion and lethargy at OSH. On chart review, appears to be fully functional at baseline. Had acute on chronic hyponatremia to 122, baseline upper 120s. Lytes otherwise unremarkable and euglycemic. TSH 2.75, fT4 1.44. ESR 50, CRP 317->193, ferritin 806. Noninfectious UA at OSH. EEG with diffuse slowing, no focal slowing or epileptiform changes. Ehrlichia, lyme, and anaplasma negative and s/p doxycycline 9/17-12/31. 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 AMS likely multifactorial iso hyponatremia, new infarcts, and potential infection PLAN: - Continue Ceftriaxone 2gm Q12, Linezolid 600mg Q12, doxy 100mg Q12 - Neurology consulted - aspirin 81 mg qD (will resume after [facility] on 01/04) - crestor 40 mg qD - Neurosurgery consulted, so surgical indication at this time - Delirium precautions, avoid sedating medications Assessment & Plan (01/16/2025 8:15 AM CDT): Hx NPH s/p shunt 2021, MRI conditional. Developed altered mental status characterized by confusion and lethargy at OSH. On chart review, appears to be fully functional at baseline. Had acute on chronic hyponatremia to 122, baseline upper 120s. Lytes otherwise unremarkable and euglycemic. TSH 2.75, fT4 1.44. ESR 50, CRP 317->193, ferritin 806. Noninfectious UA at OSH. EEG with diffuse slowing, no focal slowing or epileptiform changes. Ehrlichia, lyme, and anaplasma negative and s/p doxycycline 12/29-12/31. 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 AMS likely multifactorial iso hyponatremia, new infarcts, and potential infection PLAN: - Continue Ceftriaxone 2gm Q12, Linezolid 600mg Q12, doxy 100mg Q12 - Neurology consulted - aspirin 81 mg qD (will resume after [facility] on 01/04) - crestor 40 mg qD - stroke follow up; SMART consult - BP goal: gradual normotension - Neurosurgery consulted, so surgical indication at this time - Delirium precautions, avoid sedating medications Assessment & Plan (01/15/2025 8:02 AM CDT): Hx NPH s/p shunt 2021, MRI conditional. Developed altered mental status characterized by confusion and lethargy at OSH. On chart review, appears to be fully functional at baseline. Had acute on chronic hyponatremia to 122, baseline upper 120s. Lytes otherwise unremarkable and euglycemic. TSH 2.75, fT4 1.44. ESR 50, CRP 317->193, ferritin 806. Noninfectious UA at OSH. EEG with diffuse slowing, no focal slowing or epileptiform changes. Ehrlichia, lyme, and anaplasma negative and s/p doxycycline 12/29-12/31. 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 AMS likely multifactorial iso hyponatremia, new infarcts, and potential infection PLAN: - Continue Ceftriaxone 2gm Q12, Linezolid 600mg Q12, doxy 100mg Q12 - Neurology consulted - aspirin 81 mg qD (will resume after [facility] on 01/04) - crestor 40 mg qD - stroke follow up; SMART consult - BP goal: gradual normotension - Neurosurgery consulted, so surgical indication at this time - Delirium precautions, avoid sedating medications Assessment & Plan (01/14/2025 10:44 AM CDT): Hx NPH s/p shunt 2021, MRI conditional. Developed altered mental status characterized by confusion and lethargy at OSH. On chart review, appears to be fully functional at baseline. Had acute on chronic hyponatremia to 122, baseline upper 120s. Lytes otherwise unremarkable and euglycemic. TSH 2.75, fT4 1.44. ESR 50, CRP 317->193, ferritin 806. Noninfectious UA at OSH. EEG with diffuse slowing, no focal slowing or epileptiform changes. Ehrlichia, lyme, and anaplasma negative and s/p doxycycline 12/29-12/31. 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 AMS likely multifactorial iso hyponatremia, new infarcts, and potential infection PLAN: - Continue Ceftriaxone 2gm Q12, Linezolid 600mg Q12, doxy 100mg Q12 - Neurology consulted - obtain CTA head and neck - aspirin 81 mg qD (will resume after [facility] on 01/04) - crestor 40 mg qD - stroke follow up; SMART consult - BP goal: gradual normotension - Neurosurgery consulted, so surgical indication at this time - Delirium precautions, avoid sedating medications Assessment & Plan (01/14/2025 6:47 AM CDT): Hx NPH s/p shunt 2021, MRI conditional. Developed altered mental status characterized by confusion and lethargy at OSH. On chart review, appears to be fully functional at baseline. Had acute on chronic hyponatremia to 122, baseline upper 120s. Lytes otherwise unremarkable and euglycemic. TSH 2.75, fT4 1.44. ESR 50, CRP 317->193, ferritin 806. Noninfectious UA at OSH. EEG with diffuse slowing, no focal slowing or epileptiform changes. Ehrlichia, lyme, and anaplasma negative and s/p doxycycline 12/29-12/31. 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 AMS likely multifactorial iso hyponatremia, new infarcts, and potential infection PLAN: - Continue Ceftriaxone 2gm Q12, Linezolid 600mg Q12, doxy 100mg Q12 - Neurology consulted - obtain CTA head and neck - aspirin 81 mg qD (will resume after [facility] on 01/04) - crestor 40 mg qD - stroke follow up; SMART consult - BP goal: gradual normotension - Neurosurgery consulted, so surgical indication at this time - Delirium precautions, avoid sedating medications Assessment & Plan (01/13/2025 1:39 PM CDT): Hx NPH s/p shunt 2021, MRI conditional. Developed altered mental status characterized by confusion and lethargy at OSH. On chart review, appears to be fully functional at baseline. Had acute on chronic hyponatremia to 122, baseline upper 120s. Lytes otherwise unremarkable and euglycemic. TSH 2.75, fT4 1.44. ESR 50, CRP 317->193, ferritin 806. Noninfectious UA at OSH. EEG with diffuse slowing, no focal slowing or epileptiform changes. Ehrlichia, lyme, and anaplasma negative and s/p doxycycline 12/29-12/31. 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 AMS likely multifactorial iso hyponatremia, new infarcts, and potential infection PLAN: - Continue Ceftriaxone 2gm Q12, Linezolid 600mg Q12, doxy 100mg Q12 - Neurology consulted - obtain CTA head and neck - aspirin 81 mg qD (will resume after [facility] on 01/04) - crestor 40 mg qD - stroke follow up; SMART consult - BP goal: gradual normotension - Neurosurgery consulted, so surgical indication at this time - Delirium precautions, avoid sedating medications Assessment & Plan (01/12/2025 9:38 AM CDT): Hx NPH s/p shunt 2021, MRI conditional. Developed altered mental status characterized by confusion and lethargy at OSH. On chart review, appears to be fully functional at baseline. Had acute on chronic hyponatremia to 122, baseline upper 120s. Lytes otherwise unremarkable and euglycemic. TSH 2.75, fT4 1.44. ESR 50, CRP 317->193, ferritin 806. Noninfectious UA at OSH. EEG with diffuse slowing, no focal slowing or epileptiform changes. Ehrlichia, lyme, and anaplasma negative and s/p doxycycline 12/29-12/31. 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 AMS likely multifactorial iso hyponatremia, new infarcts, and potential infection PLAN: - Continue Ceftriaxone 2gm Q12, Linezolid 600mg Q12, doxy 100mg Q12 - Neurology consulted - obtain CTA head and neck - aspirin 81 mg qD (will resume after [facility] on 01/04) - crestor 40 mg qD - stroke follow up; SMART consult - BP goal: gradual normotension - Neurosurgery consulted, so surgical indication at this time - Delirium precautions, avoid sedating medications Assessment & Plan (01/12/2025 11:13 AM CDT): Hx NPH s/p shunt 2021, MRI conditional. Developed altered mental status characterized by confusion and lethargy at OSH. On chart review, appears to be fully functional at baseline. Had acute on chronic hyponatremia to 122, baseline upper 120s. Lytes otherwise unremarkable and euglycemic. TSH 2.75, fT4 1.44. ESR 50, CRP 317->193, ferritin 806. Noninfectious UA at OSH. EEG with diffuse slowing, no focal slowing or epileptiform changes. Ehrlichia, lyme, and anaplasma negative and s/p doxycycline 12/29-12/31. 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 AMS likely multifactorial iso hyponatremia, new infarcts, and potential infection 01/11 15:30 patient became altered, AOx0, confused and intermittently unable to follow directions. Neuro exam concerning for weakness R>L and AMS. Stroke workup negative, head CT negative. BG, Na wnl. Patient's symptoms improved. PLAN: - Continue Ceftriaxone 2gm Q12, Linezolid 600mg Q12, doxy 100mg Q12 - Neurology consulted - aspirin 81 mg qD (will resume after [facility] on 01/04) - crestor 40 mg qD - stroke follow up; SMART consult - BP goal: gradual normotension - Neurosurgery consulted, no surgical indication at this time - Delirium precautions, avoid sedating medications Assessment & Plan (01/11/2025 8:17 AM CDT): Hx NPH s/p shunt 2021, MRI conditional. Developed altered mental status characterized by confusion and lethargy at OSH. On chart review, appears to be fully functional at baseline. Had acute on chronic hyponatremia to 122, baseline upper 120s. Lytes otherwise unremarkable and euglycemic. TSH 2.75, fT4 1.44. ESR 50, CRP 317->193, ferritin 806. Noninfectious UA at OSH. EEG with diffuse slowing, no focal slowing or epileptiform changes. Ehrlichia, lyme, and anaplasma negative and s/p doxycycline 12/29-12/31. 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 AMS likely multifactorial iso hyponatremia, new infarcts, and potential infection PLAN: - Continue Ceftriaxone 2gm Q12, Linezolid 600mg Q12, doxy 100mg Q12 - Neurology consulted - obtain CTA head and neck - aspirin 81 mg qD (will resume after [facility] on 01/04) - crestor 40 mg qD - stroke follow up; SMART consult - BP goal: gradual normotension - Neurosurgery consulted, so surgical indication at this time - Delirium precautions, avoid sedating medications Assessment & Plan (01/11/2025 8:23 AM CDT): Hx NPH s/p shunt 2021, MRI conditional. Developed altered mental status characterized by confusion and lethargy at OSH. On chart review, appears to be fully functional at baseline. Had acute on chronic hyponatremia to 122, baseline upper 120s. Lytes otherwise unremarkable and euglycemic. TSH 2.75, fT4 1.44. ESR 50, CRP 317->193, ferritin 806. Noninfectious UA at OSH. EEG with diffuse slowing, no focal slowing or epileptiform changes. Ehrlichia, lyme, and anaplasma negative and s/p doxycycline 12/29-12/31. 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 Diffuse pachymeningeal thickening of the brain and cervical spine with cervical spine subdural hemorrhage extending from C2 to C3-C4 resulting in severe canal stenosis Repeat Brain MRI 01/09 showed additional infarcts AMS likely multifactorial iso hyponatremia, new infarcts, and potential infection, AMS has since improved PLAN: - Continue Ceftriaxone 2gm Q12, Linezolid 600mg Q12, doxy 100mg Q12 - Neurology consulted - obtain CTA head and neck - aspirin 81 mg qD (will resume after [facility] on 01/04) - crestor 40 mg qD - stroke follow up; SMART consult - BP goal: gradual normotension - Neurosurgery consulted, no surgical indication at this time - Delirium precautions, avoid sedating medications Assessment & Plan (01/10/2025 11:00 AM CDT): Hx NPH s/p shunt 2021, MRI conditional. Developed altered mental status characterized by confusion and lethargy at OSH. On chart review, appears to be fully functional at baseline. Had acute on chronic hyponatremia to 122, baseline upper 120s. Lytes otherwise unremarkable and euglycemic. TSH 2.75, fT4 1.44. ESR 50, CRP 317->193, ferritin 806. Noninfectious UA at OSH. EEG with diffuse slowing, no focal slowing or epileptiform changes. Ehrlichia, lyme, and anaplasma negative and s/p doxycycline 12/29-12/31. 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 AMS likely multifactorial iso hyponatremia, new infarcts, and potential infection PLAN: - Continue Ceftriaxone 2gm Q12, Linezolid 600mg Q12, doxy 100mg Q12 - Neurology consulted - obtain CTA head and neck - aspirin 81 mg qD (will resume after [facility] on 01/04) - crestor 40 mg qD - stroke follow up; SMART consult - BP goal: gradual normotension - Neurosurgery consulted, so surgical indication at this time - Delirium precautions, avoid sedating medications Assessment & Plan (01/09/2025 11:47 AM CDT): Hx NPH s/p shunt 2021, MRI conditional. Developed altered mental status characterized by confusion and lethargy at OSH. On chart review, appears to be fully functional at baseline. Had acute on chronic hyponatremia to 122, baseline upper 120s. Lytes otherwise unremarkable and euglycemic. TSH 2.75, fT4 1.44. ESR 50, CRP 317->193, ferritin 806. Noninfectious UA at OSH. EEG with diffuse slowing, no focal slowing or epileptiform changes. Ehrlichia, lyme, and anaplasma negative and s/p doxycycline 12/29-12/31. 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 AMS likely multifactorial iso hyponatremia, new infarcts, and potential infection PLAN: - Continue Ceftriaxone 2gm Q12, Linezolid 600mg Q12, doxy 100mg Q12 - Neurology consulted - obtain CTA head and neck - aspirin 81 mg qD (will resume after [facility] on 01/04) - crestor 40 mg qD - stroke follow up; SMART consult - BP goal: gradual normotension - Neurosurgery consulted - Delirium precautions, avoid sedating medications - Patient not taking oral BP meds, suspected new stroke in setting of new large mitral vegetation. Gradual normotension. PRN IV hydralazine 10mg if systolic >200 -Swallow eval for PO meds now patient is near baseline Assessment & Plan (01/08/2025 9:39 AM CDT): Hx NPH s/p shunt 2021, MRI conditional. Developed altered mental status characterized by confusion and lethargy at OSH. On chart review, appears to be fully functional at baseline. Had acute on chronic hyponatremia to 122, baseline upper 120s. Lytes otherwise unremarkable and euglycemic. TSH 2.75, fT4 1.44. ESR 50, CRP 317->193, ferritin 806. Noninfectious UA at OSH. EEG with diffuse slowing, no focal slowing or epileptiform changes. Ehrlichia, lyme, and anaplasma negative and s/p doxycycline 12/29-12/31. 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 AMS likely multifactorial iso hyponatremia, new infarcts, and potential infection PLAN: - Continue Ceftriaxone 2gm Q12, Linezolid 600mg Q12, doxy 100mg Q12 - Neurology consulted - obtain CTA head and neck - aspirin 81 mg qD (will resume after [facility] on 01/04) - crestor 40 mg qD - stroke follow up; SMART consult - BP goal: gradual normotension - Neurosurgery consulted - Delirium precautions, avoid sedating medications - Patient not taking oral BP meds, suspected new stroke in setting of new large mitral vegetation. Permissive hypertension. PRN IV hydralazine 10mg if systolic >200 Assessment & Plan (01/07/2025 11:18 AM CDT): Hx NPH s/p shunt 2021, MRI conditional. Developed altered mental status characterized by confusion and lethargy at OSH. On chart review, appears to be fully functional at baseline. Had acute on chronic hyponatremia to 122, baseline upper 120s. Lytes otherwise unremarkable and euglycemic. TSH 2.75, fT4 1.44. ESR 50, CRP 317->193, ferritin 806. Noninfectious UA at OSH. EEG with diffuse slowing, no focal slowing or epileptiform changes. Ehrlichia, lyme, and anaplasma negative and s/p doxycycline 12/29-12/31. 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 AMS likely multifactorial iso hyponatremia, new infarcts, and potential infection PLAN: - Started empirical meningitis treatment - cefepime, vanc, ampicillin, and acyclovir - Neurology consulted - obtain CTA head and neck - aspirin 81 mg qD (will resume after [facility] on 01/04) - crestor 40 mg qD - JANELLE - will likely need loop monitor on discharge - stroke follow up; SMART consult - BP goal: gradual normotension - Neurosurgery consulted - Delirium precautions, avoid sedating medications Assessment & Plan (01/07/2025 3:48 PM CDT): Hx NPH s/p shunt 2021, MRI conditional. Developed altered mental status characterized by confusion and lethargy at OSH. On chart review, appears to be fully functional at baseline. Had acute on chronic hyponatremia to 122, baseline upper 120s. Lytes otherwise unremarkable and euglycemic. TSH 2.75, fT4 1.44. ESR 50, CRP 317->193, ferritin 806. Noninfectious UA at OSH. EEG with diffuse slowing, no focal slowing or epileptiform changes. Ehrlichia, lyme, and anaplasma negative and s/p doxycycline 12/29-12/31. 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 AMS likely multifactorial iso hyponatremia, new infarcts, and potential infection PLAN: - ABX per Id linezolid 600mg BID, ceftriaxone 2g BID, Doxycycline 100mg BID - Neurology consulted - obtain CTA head and neck - aspirin 81 mg qD (will resume after [facility] on 01/04) - crestor 40 mg qD - will likely need loop monitor on discharge - stroke follow up; SMART consult - BP goal: gradual normotension - Neurosurgery consulted - Delirium precautions, avoid sedating medications -JANELLE performed showing large mitral valve vegetation, concern for storke with new AMS -CT surgery consulted Assessment & Plan (01/06/2025 9:01 AM CDT): Hx NPH s/p shunt 2021, MRI conditional. Developed altered mental status characterized by confusion and lethargy at OSH. On chart review, appears to be fully functional at baseline. Had acute on chronic hyponatremia to 122, baseline upper 120s. Lytes otherwise unremarkable and euglycemic. TSH 2.75, fT4 1.44. ESR 50, CRP 317->193, ferritin 806. Noninfectious UA at OSH. EEG with diffuse slowing, no focal slowing or epileptiform changes. Ehrlichia, lyme, and anaplasma negative and s/p doxycycline 12/29-12/31. 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 AMS likely multifactorial iso hyponatremia, new infarcts, and potential infection PLAN: - Started empirical meningitis treatment - cefepime, vanc, ampicillin, and acyclovir - Neurology consulted - obtain CTA head and neck - aspirin 81 mg qD (will resume after [facility] on 01/04) - crestor 40 mg qD - JANELLE - will likely need loop monitor on discharge - stroke follow up; SMART consult - BP goal: gradual normotension - Neurosurgery consulted - Delirium precautions, avoid sedating medications Assessment & Plan (01/06/2025 2:43 PM CDT): Hx NPH s/p shunt 2021, MRI conditional. Developed altered mental status characterized by confusion and lethargy at OSH. On chart review, appears to be fully functional at baseline. Had acute on chronic hyponatremia to 122, baseline upper 120s. Lytes otherwise unremarkable and euglycemic. TSH 2.75, fT4 1.44. ESR 50, CRP 317->193, ferritin 806. Noninfectious UA at OSH. EEG with diffuse slowing, no focal slowing or epileptiform changes. Ehrlichia, lyme, and anaplasma negative and s/p doxycycline 12/29-12/31. 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 AMS likely multifactorial iso hyponatremia, new infarcts, and potential infection 01/05, patient mental status deteriorated, AOx0, not following directions. CR increased to 2.22 vanc level 39 PLAN: - Vanc DC'd, repeat vanc level tomorrow AM -Repeat brain MRI -Meropenem 1g q12 -Renal consult for rising CR in setting of AMS - Neurology consulted - obtain CTA head and neck - aspirin 81 mg qD (will resume after [facility] on 01/04) - crestor 40 mg qD - JANELLE tomorrow, NPO at midnight - will likely need loop monitor on discharge - stroke follow up; SMART consult - BP goal: gradual normotension - Neurosurgery consulted for [employer] shunt fluid analysis - Delirium precautions, avoid sedating medications - DC gabapentin 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 She presented with hyponatremia to 122, her baseline is upper 120s. Lytes otherwise unremarkable and euglycemic. TSH 2.75, fT4 1.44. ESR 50, CRP 317->193, ferritin 806. Noninfectious UA. EEG with diffuse slowing, no focal slowing or epileptiform changes. Ehrlichia, lyme, and anaplasma negative and s/p doxycycline 12/29-12/31. Brain MRI on 01/01 was remarkable for multiple punctate acute infarcts of the right internal capsule, right centrum semiovale bowel, left parietal white matter, and left cerebellar hemisphere involving multiple vascular territories, raising suspicion for an embolic source. Diffuse pachymeningeal thickening of the brain and cervical spine with cervical spine subdural hemorrhage extending from C2 to C3-C4 resulting in severe canal stenosis. MRI Spine thoracic and lumbar showed discitis and osteomyelitis at T1-T2 and T12-L1. Fluid filled subdural space possibly an empyema spinal infection. Initially were concerned for meningoencephalitic process and brain MRI revealed multifocal punctate infarcts. The infarcts are likely occurring within the prior 3-4 days (did not all occur on the day, varying ages). Given its multivascular territories, etiology may be a septic emboli from cardiac source. Multifocal infarcts are also likely contributing to her altered mental status, however AMS is likely multifactorial in the setting of hyponatremia, new infarcts, and possible meningitis/infection spread. Her WBCs are holding stable at 11.79. Blood culture has no growths as of date. PLAN: - Continue empirical meningitis treatment, per neurology and ID consults: - Current abx regimen: - Discontinue Acyclovir and Ampicillin - Continue Cefepime 2gIV q12h - Continue Vancomycin 15mg/kg IV q12h - Bone biopsy with [facility] IR yesterday -follow up cultures - JANELLE for suspected septic emboli tentatively scheduled for 01/07 - Neurology consulted - aspirin 81 mg - crestor 40 mg daily - Pt will need loop monitor on discharge pending JANELLE results - stroke follow up - BP goal: gradual normotension - Neurosurgery consulted: discussion of feasibility of vp software engineering shunt fluid sampling. - Delirium precautions, avoid sedating medications - Ophthalmology consulted for acute visual changes/floaters and evaluation for possible infectious spread to eyes, no intervention at this time. 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 She presented with hyponatremia to 122, her baseline is upper 120s. Lytes otherwise unremarkable and euglycemic. TSH 2.75, fT4 1.44. ESR 50, CRP 317->193, ferritin 806. Noninfectious UA. EEG with diffuse slowing, no focal slowing or epileptiform changes. Ehrlichia, lyme, and anaplasma negative and s/p doxycycline 12/29-12/31. Brain MRI on 01/01 was remarkable for multiple punctate acute infarcts of the right internal capsule, right centrum semiovale bowel, left parietal white matter, and left cerebellar hemisphere involving multiple vascular territories, raising suspicion for an embolic source. Diffuse pachymeningeal thickening of the brain and cervical spine with cervical spine subdural hemorrhage extending from C2 to C3-C4 resulting in severe canal stenosis. MRI Spine thoracic and lumbar showed discitis and osteomyelitis at T1-T2 and T12-L1. Fluid filled subdural space possibly an empyema spinal infection. Initially were concerned for meningoencephalitic process and brain MRI revealed multifocal punctate infarcts. The infarcts are likely occurring within the prior 3-4 days (did not all occur on the day, varying ages). Given its multivascular territories, etiology may be a septic emboli from cardiac source. Multifocal infarcts are also likely contributing to her altered mental status, however AMS is likely multifactorial in the setting of hyponatremia, new infarcts, and possible meningitis/infection spread. Her WBCs are holding stable at 11.79. Blood culture has no growths as of date. PLAN: - Continue empirical meningitis treatment, per neurology and ID consults: - Current abx regimen: - Acyclovir 10mg/kg q12h - Ampicillin 2gIV q6h - Cefepime 2gIV q12h - Vancomycin 15mg/kg IV q12h - May consider discontinuing ampicillin in next 48 hrs if blood culture does not grow Listeria - Bone biopsy with [facility] IR today - IR will not perform LP given risk of subdural empyema seeding CSF space - JANELLE for suspected septic emboli tentatively scheduled for 01/07 - Neurology consulted - aspirin 81 mg (held, will follow up post bone biopsy) - crestor 40 mg daily - Pt will need loop monitor on discharge - stroke follow up - BP goal: gradual normotension - Neurosurgery consulted: no surgical interventions at this time, spine is stable, no activity restrictions. - Delirium precautions, avoid sedating medications - Ophthalmology consulted for acute visual changes/floaters and evaluation for possible infectious spread to eyes Assessment & Plan (01/04/2025 4:33 PM CDT): Hx NPH s/p shunt 2021, MRI conditional. Developed altered mental status characterized by confusion and lethargy at OSH. On chart review, appears to be fully functional at baseline. Had acute on chronic hyponatremia to 122, baseline upper 120s. Lytes otherwise unremarkable and euglycemic. TSH 2.75, fT4 1.44. ESR 50, CRP 317->193, ferritin 806. Noninfectious UA at OSH. EEG with diffuse slowing, no focal slowing or epileptiform changes. Ehrlichia, lyme, and anaplasma negative and s/p doxycycline 12/29-12/31. 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 AMS likely multifactorial iso hyponatremia, new infarcts, and potential infection PLAN: - Started empirical meningitis treatment - cefepime, vanc, ampicillin, and acyclovir - Neurology consulted - obtain CTA head and neck - aspirin 81 mg qD (will resume after [facility] on 01/04) - crestor 40 mg qD - JANELLE - will likely need loop monitor on discharge - stroke follow up; SMART consult - BP goal: gradual normotension - Neurosurgery consulted - Delirium precautions, avoid sedating medications Assessment & Plan (01/03/2025 3:40 PM CDT): Hx NPH s/p shunt 2021, MRI conditional. Developed altered mental status characterized by confusion and lethargy at OSH. Fully functional at baseline. Had acute on chronic hyponatremia to 122, baseline upper 120s. Lytes otherwise unremarkable and euglycemic. TSH 2.75, fT4 1.44. ESR 50, CRP 317->193, ferritin 806. Noninfectious UA at OSH. EEG with diffuse slowing, no focal slowing or epileptiform changes. Ehrlichia, lyme, and anaplasma negative and s/p doxycycline 12/29-12/31. 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 Diffuse pachymeningeal thickening of the brain and cervical spine with cervical spine subdural hemorrhage extending from C2 to C3-C4 resulting in severe canal stenosis MRI Spine Thoracic and lumbar showed discitis and osteomyelitis at T1-T2 and T12-L1. Fluid filled subdural space possibly an empyema spinal infection. PLAN: - Started empirical meningitis treatment - cefepime, vanc, ampicillin, and acyclovir -Bone biopsy tomorrow with [facility] IR, NPO midnight - JANELLE for suspected septic emboli tentatively scheduled for 01/07. Repeat blood cultures - Neurology consulted - aspirin 325 mg Daily (will follow up post bone biopsy) - crestor 40 mg Daily - will likely need loop monitor on discharge - stroke follow up - BP goal: gradual normotension - Neurosurgery consulted - No surgical interventions at this time, spine is stable, no activity restrictions. -ID consulted - Delirium precautions, avoid sedating medications Assessment & Plan (01/03/2025 9:10 AM CDT): Hx NPH s/p shunt 2021, MRI conditional. Developed altered mental status characterized by confusion and lethargy at OSH. On chart review, appears to be fully functional at baseline. Had acute on chronic hyponatremia to 122, baseline upper 120s. Lytes otherwise unremarkable and euglycemic. TSH 2.75, fT4 1.44. ESR 50, CRP 317->193, ferritin 806. Noninfectious UA at OSH. EEG with diffuse slowing, no focal slowing or epileptiform changes. Ehrlichia, lyme, and anaplasma negative and s/p doxycycline 12/29-12/31. 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 AMS likely multifactorial iso hyponatremia, new infarcts, and potential infection PLAN: - Started empirical meningitis treatment - cefepime, vanc, ampicillin, and acyclovir - Neurology consulted - obtain CTA head and neck - aspirin 325 mg qD (will resume after LP on 01/03) - crestor 40 mg qD - no need for repeat TTE - will likely need loop monitor on discharge - stroke follow up - BP goal: gradual normotension - Neurosurgery consulted - Recommend MRI lumbar and thoracic spine - Plan for LP on 01/03 - Delirium precautions, avoid sedating medications Assessment & Plan (01/02/2025 1:56 PM CDT): Hx NPH s/p shunt 2021, MRI conditional. Developed altered mental status characterized by confusion and lethargy at OSH. On chart review, appears to be fully functional at baseline. Had acute on chronic hyponatremia to 122, baseline upper 120s. Lytes otherwise unremarkable and euglycemic. TSH 2.75, fT4 1.44. ESR 50, CRP 317->193, ferritin 806. Noninfectious UA at OSH. EEG with diffuse slowing, no focal slowing or epileptiform changes. Ehrlichia, lyme, and anaplasma negative and s/p doxycycline 12/29-12/31. 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 AMS likely multifactorial iso hyponatremia, new infarcts, and potential infection PLAN: - Started empirical meningitis treatment - cefepime, vanc, ampicillin, and acyclovir - Neurology consulted - obtain CTA head and neck - aspirin 325 mg qD (will resume after LP on 01/03) - crestor 40 mg qD - no need for repeat TTE - will likely need loop monitor on discharge - stroke follow up - BP goal: gradual normotension - Neurosurgery consulted - Recommend MRI lumbar and thoracic spine - Plan for LP on 01/03 - Delirium precautions, avoid sedating medications Intractable low back pain 12/25/2024 Fracture Risk Assessment Sco re (FRAX) indicating greater than 3% risk for hip fracture 11/04/2024 Overview (11/04/2024): Bone Health Evaluation 2024 The high level is of the Major and hip 05/04 The lowest T-score is -2.3 and that is of the femoral neck. Assessment & Plan (11/04/2024 1:51 PM CDT): We discussed and offered active Rx. She does have back and balance problems further increasing risk of falls. We reviewed calcium. I see no advantage in alga-bianka. I suggest 2 viactivs/d or citrical max plus. Given the high frax which defines our intention to treat, I am recommending once a week oral BP. She has great dentition. We will start LOW DOSE alendronate 35 mg weekly The plan will be to use x 5 yr then provide a strategic treatment pause. Moderate episode of recurrent major depressive d isorder 07/10/2023 Assessment & Plan (07/13/2024 10:05 AM CDT): Mood is stable. NO acute changes. Arthritis of both glenohumeral joints 01/30/2023 Constipation 01/30/2023 Decreased cardiac ejection fraction 01/30/2023 Lumbar spondylosis 01/30/2023 Trochanteric bursitis of both hips 01/30/2023 Fatigue 09/27/2022 Assessment & Plan (09/27/2022 11:45 AM CDT): Reviewed recent testing, labs and echocardiogram. Discussed differential diagnoses and multiple factors influencing fatigue including anemia, endocrinopathies, vitamin deficiencies, hormonal imbalance, inadequate sleep, poor diet, and lack of exercise. Encouraged healthy eating, recommended eating several small meals frequently throughout the day and increasing dietary protein. Encouraged her to increase water intake. Work on getting regular physical activity. Reviewed sleep hygiene, patient following with sleep med. Will continue to monitor. Patient with ongoing fatigue >1 year that she is attributing to her depression. See discussion above. Osteopenia of left hip 09/27/2022 Assessment & Plan (09/27/2022 11:56 AM CDT): Reviewed 03/2020 BD testing. Scan ordered today. Continue calcium and vitamin d supplementation. Other cardiomyopathies 06/13/2022 Assessment & Plan (07/13/2024 10:05 AM CDT): Contiues f/u with Dr. Bender. No fluid overload. Other hydrocephalus 06/13/2022 Family history of colon cancer in mother 023 Overview (05/14/2022): Added automatically from request for surgery [id number] Abrasion 03/22/2022 Contusion 03/22/2022 Fall 03/22/2022 Head injury 03/22/2022 Personal history of other di seases of the circulatory system 03/22/2022 Chest pain 02/11/2022 Assessment & Plan (02/12/2022 4:23 PM CDT): Patient had an episode of chest pain on 02/10/2022 associated with troponin elevation concerning for Type I vs Type II NSTEMI versus pulmonary embolism versus less likely pneumothorax versus pneumonia versus trauma versus reflux disease. Assessment: - Troponin Trend 103->165->229->232->174 - EKG w/ likely chronic T wave inversions in I, aVL, V4-V6 - TTE with reduced LV systolic function, regional wall motion abnormalities - CT PE: No acute pulmonary embolism Plan: - F/u cardiology consult recommendations Assessment & Plan (02/11/2022 3:06 PM CDT): Patient had an episode of chest pain on 02/10/2022 associated with troponin elevation concerning for Type I vs Type II NSTEMI versus pulmonary embolism versus less likely pneumothorax versus pneumonia versus trauma versus reflux disease. Assessment: - Troponin Trend 103->165->229->232->174 - EKG w/ likely chronic T wave inversions in I, aVL, V4-V6 Plan: - F/u TTE - F/u cardiology consult recommendations - recommend CTA PE protocol to rule out pulmonary embolism Shoulder impingement, left 12/26/2021 Peripheral venous insufficiency 10/19/2020 Localized edema 09/07/2020 Ankle edema 09/07/2020 Rheumatoid arthritis involvi ng vertebra with negative rheumatoid factor ([facility]) 07/05/2020 Assessment & Plan (07/13/2024 10:05 AM CDT): Cpontinues on methrotrexate on weekly basis. Denies any side effects to the regiemn. Assessment & Plan (02/15/2022 10:32 AM CDT): The patient has a history of rheumatoid arthritis for which she is on methotrexate 2.5 mg weekly, duloxetine 60 mg daily, meloxicam 50 mg daily, hydroxychloroquine 200 mg daily. - CMP with normal renal function - continue methotrexate, duloxetine, meloxicam, hydroxychloroquine at home doses. Assessment & Plan (02/13/2022 11:07 AM CDT): The patient has a history of rheumatoid arthritis for which she is on methotrexate 2.5 mg weekly, duloxetine 60 mg daily, meloxicam 50 mg daily, hydroxychloroquine 200 mg daily. - CMP with normal renal function - continue methotrexate, duloxetine, meloxicam, hydroxychloroquine at home doses. Assessment & Plan (02/12/2022 4:25 PM CDT): The patient has a history of rheumatoid arthritis for which she is on methotrexate 2.5 mg weekly, duloxetine 60 mg daily, meloxicam 50 mg daily, hydroxychloroquine 200 mg daily. - CMP with normal renal function - continue methotrexate, duloxetine, meloxicam, hydroxychloroquine at home doses. Assessment & Plan (02/11/2022 1:31 PM CDT): The patient has a history of rheumatoid arthritis for which she is on methotrexate 2.5 mg weekly, duloxetine 60 mg daily, meloxicam 50 mg daily, hydroxychloroquine 200 mg daily. - CMP with normal renal function - continue methotrexate, duloxetine, meloxicam, hydroxychloroquine at home doses. Assessment & Plan (02/09/2022 11:17 AM CDT): The patient has a history of rheumatoid arthritis for which she is on methotrexate 2.5 mg weekly, duloxetine 60 mg daily, meloxicam 50 mg daily, hydroxychloroquine 200 mg daily. - CMP with normal renal function - continue methotrexate, duloxetine, meloxicam, hydroxychloroquine at home doses. Assessment & Plan (02/08/2022 3:31 PM CDT): The patient has a history of rheumatoid arthritis for which she is on methotrexate 2.5 mg weekly, duloxetine 60 mg daily, meloxicam 50 mg daily, hydroxychloroquine 200 mg daily. - CMP with normal renal function - continue methotrexate, duloxetine, meloxicam, hydroxychloroquine at home doses. Osteoporosis 12/14/2019 Assessment & Plan (09/22/2024 10:37 AM CDT): Was told she had osteoporosis in L hip and penia every where else. Has been taking Calcium and Vitamin D supplements. She is going to see a bone specialist soon as well. She is working with a holistic provider as well. Assessment & Plan (12/14/2019 11:34 AM CDT): DEXA ordered. Will contact with results once received. Breast cancer screening by mammogram 12/14/2019 Assessment & Plan (12/14/2019 11:34 AM CDT): Mammogram scheduled 03/15/20 Refused influenza vaccine 12/14/2019 Assessment & Plan (12/14/2019 11:35 AM CDT): Discussed and the patient refuses immunization today. Educated regarding the need to vaccinate for personal protection and to limit the viruses in the community to protect those most vulnerable. Dysuria 12/14/2019 Assessment & Plan (12/14/2019 11:50 AM CDT): Complete antibiotic as prescribed (macrobid bid x 7 days) Do not hold your urine. Urinate as soon as you feel the need to go Drink plenty of water and fluids. Limit alcohol, caffeine, and citrus juices- They will irritate the bladder Wipe front to back & wear cotton underwear Try emptying your bladder before and after having sexual intercourse Tylenol/Motrin for pain Can add cranberry supplement to acidify the urine I will culture the urine to ensure bacteria is sensitive to antibiotic prescribed- this will take a few days to come back. BMI 26.0-26.9,adult 04/20/2019 Overview (04/20/2019): BMI Follow-up includes: nutrition counseling, exercise counseling and education provided. Assessment & Plan (09/22/2024 10:33 AM CDT): Weight appropriate for patient. Assessment & Plan (09/03/2024 8:56 AM CDT): Weight appropriate for patient. Assessment & Plan (12/14/2019 11:34 AM CDT): Reviewed need to lose weight, reviewed health benefits. Reviewed recommendations for daily intake & activity 20-30 minutes/day. Discussed healthy diet and importance of regular physical activity. Localized, primary osteoarthritis of elbow 03/09 Deviated septum 09/21/2018 Assessment & Plan (09/21/2018 3:48 PM CDT): Nasal saline or sinus rinse followed by Aquaphor 2-3 times daily Elevate head of bed 4 inches with bed risers Nasal septal perforation 09/21/2018 Assessment & Plan (09/21/2018 3:48 PM CDT): Nasal saline or sinus rinse followed by Aquaphor 2-3 times daily Elevate head of bed 4 inches with bed risers Astelin 2 sprays into each nostril while looking down over the sink, do not sniff in or blow nose after use. Nasal saline followed by Astelin, followed by Aquaphor Screening for malignant neoplasm of breast 03/21 Assessment & Plan (07/07/2018 3:36 PM CDT): A Medicare Annual Wellness Visit (AWV) was done today as well. The patient filled out a depression screen, functional assessment screen, health risk assessment, and other physicians list. All the elements of this exam were completed as outlined by CMS. Please note that the documentation of this is split between paper documentation and this electronic record. Assessment & Plan (03/21/2017 10:55 AM TREE THINNER): A Medicare Annual Wellness Visit (AWV) was done today as well. The patient filled out a depression screen, functional assessment screen, health risk assessment, and other physicians list. All the elements of this exam were completed as outlined by CMS. Please note that the documentation of this is split between paper documentation and this electronic record. Lumbar radiculopathy 08/13/2016 Pain in pelvis 04/25/2016 Myofascial pain 04/25/2016 Pain in female pelvis 04/25/2016 Arthralgia of hip 04/25/2016 Urinary urgency 04/25/2016 Hypercholesterolemia 03/12/2016 Assessment & Plan (07/13/2024 10:04 AM CDT): Stable on atorvastatin and will monito rerpsonse. NO chest pains/pressures/palpitations. NO new myalgias/arthralgias. Assessment & Plan (02/15/2022 10:31 AM CDT): The patient has a history of hyperlipidemia for which she is on atorvastatin 20 mg daily. - ASCVD 10-year mortality 23.2%, course has been complicated by NSTEMI - recommend increasing atorvastatin to 40 mg daily Assessment & Plan (02/13/2022 11:06 AM CDT): The patient has a history of hyperlipidemia for which she is on atorvastatin 20 mg daily. - continue atorvastatin 20 mg daily Assessment & Plan (02/12/2022 4:25 PM CDT): The patient has a history of hyperlipidemia for which she is on atorvastatin 20 mg daily. - continue atorvastatin 20 mg daily Assessment & Plan (02/11/2022 1:31 PM CDT): The patient has a history of hyperlipidemia for which she is on atorvastatin 20 mg daily. - continue atorvastatin 20 mg daily Assessment & Plan (02/09/2022 11:17 AM CDT): The patient has a history of hyperlipidemia for which she is on atorvastatin 20 mg daily. - continue atorvastatin 20 mg daily Assessment & Plan (02/08/2022 3:30 PM CDT): The patient has a history of hyperlipidemia for which she is on atorvastatin 20 mg daily. - continue atorvastatin 20 mg daily Assessment & Plan (05/14/2019 7:55 AM TREE THINNER): We will recheck her lipid profile Depression 08/28/2013 Overview (07/18/2016): DEPRESSIVE DISORDER NEC Assessment & Plan (09/27/2022 11:55 AM CDT): Medication managed by psychiatry, duloxetine recently increased. [place] associates depressive symptoms with fatigue. Patient is not currently engaged with counselor. Had seen counselor in the past who she did not feel was a good fit for her, she is interested in finding someone different. We discussed benefits of CBT. Patient with good support from friends and family. She denies experiencing any SI/HI. Assessment & Plan (10/09/2018 7:56 AM CDT): Mood is fairly stable she has seen Dr. Celestin in the past she has quite a bit of situational stress with the with severe memory disorder in a [facility] Assessment & Plan (03/18/2018 10:05 AM TREE THINNER): She is continuing to have significant depression on Lexapro I am going to refer her to the optimum study states she is following with a therapist now in [place] Assessment & Plan (09/16/2017 12:01 PM CDT): She is still having quite a bit of problems with depression and mood states that she has had significant issues with the who is in a dementia unit. At this point I will refer her for the optimum study. Continue Lexapro in the interim Assessment & Plan (06/19/2017 1:51 PM TREE THINNER): Will increase to 20 mg of lexapro, Assessment & Plan (03/21/2017 10:56 AM TREE THINNER): Has begun lexapro will follow Assessment & Plan (09/19/2016 11:04 AM CDT): Psychological condition is unchanged. Continue current treatment regimen. Psychological condition will be reassessed in 3 months. Chronic nonintractable headache 08/28/2013 Overview (07/18/2016): HEADACHE Assessment & Plan (05/14/2019 7:54 AM TREE THINNER): She has not have any complaints of current headache Assessment & Plan (12/31/2016 11:38 AM CDT): We had a discussion today we will continue on current treatment Assessment & Plan (09/19/2016 11:10 AM CDT): Very rare at this point. Patient is doing very well on current medical regimen. Will continue with same treatment and monitor as clinical course dictates. Hypertension, essential 08/28/2013 Overview (07/19/2016): HYPERTENSION NOS Assessment & Plan (02/10/2025 9:43 AM CDT): - continue amlodipine 5mg, furosemide 40 -ARB was stopped this admit due to ANDREIA Assessment & Plan (02/09/2025 7:34 AM CDT): - continue amlodipine 5mg, furosemide 40 -ARB was stopped this admit due to ANDREIA Assessment & Plan (02/08/2025 1:31 PM CDT): - continue amlodipine 5mg, furosemide 40 -ARB was stopped this admit due to ANDREIA Assessment & Plan (02/07/2025 7:53 AM CDT): - continue amlodipine 5mg, furosemide 40 - bp largely at goal, however worsened by pain Assessment & Plan (02/06/2025 9:17 AM CDT): - continue amlodipine 5mg, furosemide 40 - bp largely at goal, however worsened by pain Assessment & Plan (02/05/2025 8:02 PM CDT): - continue amlodipine 5mg, furosemide 40 - bp largely at goal, however worsened by pain Assessment & Plan (01/17/2025 7:27 AM CDT): EF 41% in 2021, 60-65% 12/28/24. New oxygen requirement and BNP 16k on admission, 399 in 2022. Now on room air, s/p Lasix x1. - continue GDMT: coreg 25mg BID, losartan 100mg daily - Continue amlodipine 5mg Assessment & Plan (01/16/2025 11:44 AM CDT): EF 41% in 2021, 60-65% 12/28/24. New oxygen requirement and BNP 16k on admission, 399 in 2022. Now on room air, s/p Lasix x1. - continue GDMT: coreg 25mg BID, losartan 100mg daily - Continue amlodipine 5mg Assessment & Plan (01/15/2025 8:02 AM CDT): EF 41% in 2021, 60-65% 12/28/24. New oxygen requirement and BNP 16k on admission, 399 in 2022. Now on room air, s/p Lasix x1. - continue GDMT: coreg 25mg BID, losartan 100mg daily - Continue amlodipine 5mg Assessment & Plan (01/14/2025 10:44 AM CDT): EF 41% in 2021, 60-65% 12/28/24. New oxygen requirement and BNP 16k on admission, 399 in 2022. Now on room air, s/p Lasix x1. - continue GDMT: coreg 25mg BID, losartan 100mg daily - BP consistently elevated for 2 days. Plan to start amlodipine 5 mg daily today. Assessment & Plan (01/14/2025 2:15 PM CDT): EF 41% in 2021, 60-65% 12/28/24. New oxygen requirement and BNP 16k on admission, 399 in 2022. Now on room air, s/p Lasix x1. - continue GDMT: coreg 25mg BID, losartan 100mg daily - add amlodipine 5mg daily Assessment & Plan (01/13/2025 1:39 PM CDT): EF 41% in 2021, 60-65% 12/28/24. New oxygen requirement and BNP 16k on admission, 399 in 2022. Now on room air, s/p Lasix x1. - continue GDMT: coreg 25mg BID, losartan 100mg daily Assessment & Plan (01/12/2025 9:38 AM CDT): EF 41% in 2021, 60-65% 12/28/24. New oxygen requirement and BNP 16k on admission, 399 in 2022. Now on room air, s/p Lasix x1. - continue GDMT: coreg 25mg BID, losartan 100mg daily - discontinue Hydralazine 25 mg TID Assessment & Plan (01/12/2025 7:08 AM CDT): EF 41% in 2021, 60-65% 12/28/24. New oxygen requirement and BNP 16k on admission, 399 in 2022. Now on room air, s/p Lasix x1. - continue GDMT: coreg 25mg BID, losartan 100mg daily - discontinue Hydralazine 25 mg TID Assessment & Plan (01/11/2025 8:17 AM CDT): EF 41% in 2021, 60-65% 12/28/24. New oxygen requirement and BNP 16k on admission, 399 in 2022. Now on room air, s/p Lasix x1. - continue GDMT: coreg 25mg BID, losartan 100mg daily - discontinue Hydralazine 25 mg TID Assessment & Plan (01/11/2025 6:48 AM CDT): EF 41% in 2021, 60-65% 12/28/24. New oxygen requirement and BNP 16k on admission, 399 in 2022. Now on room air, s/p Lasix x1. - continue GDMT: coreg 25mg BID, losartan 100mg daily - discontinue Hydralazine 25 mg TID Assessment & Plan (01/10/2025 11:00 AM CDT): EF 41% in 2021, 60-65% 12/28/24. New oxygen requirement and BNP 16k on admission, 399 in 2022. Now on room air, s/p Lasix x1. - continue GDMT: coreg 25mg BID, losartan 100mg daily - discontinue Hydralazine 25 mg TID Assessment & Plan (01/09/2025 6:44 AM CDT): EF 41% in 2021, 60-65% 12/28/24. New oxygen requirement and BNP 16k on admission, 399 in 2022. Now on room air, s/p Lasix x1. - continue GDMT: coreg 25mg BID, losartan 100mg daily - Start Hydralazine 25 mg TID -Patient unable to take PO meds, suspicion for new stroke, permissive hypertension, -PRN IV hydralazine 10mg Q6 if systolic >200 Assessment & Plan (01/08/2025 9:39 AM CDT): EF 41% in 2021, 60-65% 12/28/24. New oxygen requirement and BNP 16k on admission, 399 in 2022. Now on room air, s/p Lasix x1. - continue GDMT: coreg 25mg BID, losartan 100mg daily - Start Hydralazine 25 mg TID -Patient unable to take PO meds, suspicion for new stroke, permissive hypertension, -PRN IV hydralazine 10mg Q6 if systolic >200 Assessment & Plan (01/07/2025 11:18 AM CDT): EF 41% in 2021, 60-65% 12/28/24. New oxygen requirement and BNP 16k on admission, 399 in 2022. Now on room air, s/p Lasix x1. - continue GDMT: coreg 25mg BID, losartan 100mg daily - Start Hydralazine 25 mg TID Assessment & Plan (01/07/2025 7:00 AM CDT): EF 41% in 2021, 60-65% 12/28/24. New oxygen requirement and BNP 16k on admission, 399 in 2022. Now on room air, s/p Lasix x1. - continue GDMT: coreg 25mg BID, losartan 100mg daily - Start Hydralazine 25 mg TID Assessment & Plan (01/06/2025 9:01 AM CDT): EF 41% in 2021, 60-65% 12/28/24. New oxygen requirement and BNP 16k on admission, 399 in 2022. Now on room air, s/p Lasix x1. - continue GDMT: coreg 25mg BID, losartan 100mg daily - Start Hydralazine 25 mg TID Assessment & Plan (01/06/2025 6:54 AM CDT): EF 41% in 2021, 60-65% 12/28/24. New oxygen requirement and BNP 16k on admission, 399 in 2022. Now on room air, s/p Lasix x1. - continue GDMT: coreg 25mg BID, losartan 100mg daily - Start Hydralazine 25 mg TID Assessment & Plan (01/05/2025 6:41 AM CDT): Mild concentric LV hypertrophy and diastolic dysfunction. EF 60-65% 12/28/24. New oxygen requirement and BNP 16k on admission, 399 in 2022. Pt is now on room air, s/p Lasix x1. Blood pressure readings overnight 01/03 and early 01/04 this morning were ranging in 160s/60s with a high this AM of 197/68. HTN was well controlled prior to admission and this increase in pressures is likely due to her acute infection. PLAN: - continue coreg 25mg BID, losartan 100mg nightly - add hydralazine 25mg TID (will re-evaluate BPs after biopsy today to see if further changes are needed) Assessment & Plan (01/04/2025 11:25 AM CDT): Mild concentric LV hypertrophy and diastolic dysfunction. EF 60-65% 12/28/24. New oxygen requirement and BNP 16k on admission, 399 in 2022. Pt is now on room air, s/p Lasix x1. Blood pressure readings overnight 01/03 and early 01/04 this morning were ranging in 160s/60s with a high this AM of 197/68. HTN was well controlled prior to admission and this increase in pressures is likely due to her acute infection. PLAN: - continue coreg 25mg BID, losartan 100mg nightly - add hydralazine 25mg TID (will re-evaluate BPs after biopsy today to see if further changes are needed) Assessment & Plan (01/04/2025 4:33 PM CDT): EF 41% in 2021, 60-65% 12/28/24. New oxygen requirement and BNP 16k on admission, 399 in 2022. Now on room air, s/p Lasix x1. - continue GDMT: coreg 25mg BID, losartan 100mg daily - Start Hydralazine 25 mg TID Assessment & Plan (01/03/2025 3:40 PM CDT): EF 41% in 2021, 60-65% 12/28/24. New oxygen requirement and BNP 16k on admission, 399 in 2022. Now on room air, s/p Lasix x1. - continue GDMT: coreg 25mg BID, losartan 100mg daily Assessment & Plan (01/03/2025 9:10 AM CDT): EF 41% in 2021, 60-65% 12/28/24. New oxygen requirement and BNP 16k on admission, 399 in 2022. Now on room air, s/p Lasix x1. - continue GDMT: coreg 25mg BID, losartan 100mg daily Assessment & Plan (01/02/2025 1:56 PM CDT): EF 41% in 2021, 60-65% 12/28/24. New oxygen requirement and BNP 16k on admission, 399 in 2022. Now on room air, s/p Lasix x1. - continue GDMT: coreg 25mg BID, losartan 100mg daily Assessment & Plan (01/02/2025 11:51 AM CDT): EF 41% in 2021, 60-65% 12/28/24. New oxygen requirement and BNP 16k on admission, 399 in 2022. Now on room air, s/p Lasix x1. - continue GDMT: coreg 25mg BID, losartan 100mg daily Assessment & Plan (01/01/2025 3:39 AM CDT): EF 41% in 2021, 60-65% 12/28/24. New oxygen requirement and BNP 16k on admission, 399 in 2022. Now on room air, s/p Lasix x1. - continue GDMT: coreg 25mg BID, losartan 100mg daily Assessment & Plan (07/13/2024 10:04 AM CDT): Stable on carvedilol and olmesartan respoective.y. Assessment & Plan (02/15/2022 10:32 AM CDT): The patient has a history of hypertension for which she is on olmesartan 40 mg at home. Blood pressures while admitted so far have been normotensive. -continue losartan 100 mg daily Assessment & Plan (02/13/2022 11:07 AM CDT): The patient has a history of hypertension for which she is on olmesartan 40 mg at home. Blood pressures while admitted so far have been normotensive. -agree with restarting olmesartan Assessment & Plan (02/12/2022 4:25 PM CDT): The patient has a history of hypertension for which she is on olmesartan 40 mg at home. Blood pressures while admitted so far have been normotensive. -Continue to hold olmesartan Assessment & Plan (02/11/2022 3:07 PM CDT): The patient has a history of hypertension for which she is on olmesartan 40 mg at home. Blood pressures while admitted so far have been normotensive. -Continue to hold olmesartan Assessment & Plan (02/09/2022 11:17 AM CDT): The patient has a history of hypertension for which she is on olmesartan 40 mg at home. Blood pressures while admitted so far have been normotensive. - please hold olmesartan 40 mg daily given orthostatic symptoms and hypovolemia Assessment & Plan (02/08/2022 3:30 PM CDT): The patient has a history of hypertension for which she is on olmesartan 40 mg at home. Blood pressures while admitted so far have been normotensive. - please hold olmesartan 40 mg daily given orthostatic symptoms and hypovolemia Assessment & Plan (05/14/2019 7:55 AM TREE THINNER): Hypertension is unchanged. Weight loss. Blood pressure will be reassessed in 3 months. Assessment & Plan (03/18/2018 10:06 AM TREE THINNER): Hypertension is unchanged. Weight loss. Blood pressure will be reassessed in 3 months. Assessment & Plan (06/19/2017 1:49 PM TREE THINNER): Patient is doing very well on current medical regimen. Will continue with same treatment and monitor as clinical course dictates. Assessment & Plan (12/31/2016 11:39 AM CDT): Blood pressure is excellent today we can monitor her Assessment & Plan (09/19/2016 11:10 AM CDT): Hypertension is unchanged. Continue current treatment regimen. Blood pressure will be reassessed in 3 months. Hypothyroidism, unspecified 08/28/2013 Overview (07/19/2016): HYPOTHYROIDISM NOS Assessment & Plan (02/10/2025 9:43 AM CDT): - continue levothyroxine 75mcg - repeat TSH as OP given TSH of 18 on 01/11 during active infection, she is on amiodarone now so this will need to be closely monitored. Due for repeat TFTs around 02/22/25 Assessment & Plan (02/09/2025 7:34 AM CDT): - continue levothyroxine 75mcg - repeat TSH as OP given TSH of 18 on 01/11 during active infection, she is on amiodarone now so this will need to be closely monitored. Due for repeat TFTs around 02/22/25 Assessment & Plan (02/08/2025 1:31 PM CDT): - continue levothyroxine 75mcg - repeat TSH as OP given TSH of 18 on 01/11 during active infection, she is on amiodarone now so this will need to be closely monitored. Due for repeat TFTs 01/22/25 Assessment & Plan (02/07/2025 7:53 AM CDT): - continue levothyroxine 75mcg - repeat TSH as OP given TSH of 18 on 01/11 during active infection, she is on amiodarone now so this will need to be closely monitored Assessment & Plan (02/06/2025 9:17 AM CDT): - continue levothyroxine 75mcg - repeat TSH as OP given TSH of 18 on 01/11 during active infection, she is on amiodarone now so this will need to be closely monitored Assessment & Plan (02/05/2025 8:02 PM CDT): - continue levothyroxine 75mcg - repeat TSH as OP given TSH of 18 on 01/11 during active infection, she is on amiodarone now so this will need to be closely monitored Assessment & Plan (01/17/2025 7:27 AM CDT): TSH 2.75, fT4 1.44 on 12/23/24. On levothyroxine. - Continue levothyroxine 75mcg daily Assessment & Plan (01/16/2025 11:44 AM CDT): TSH 2.75, fT4 1.44 on 12/23/24. On levothyroxine. - Continue levothyroxine 75mcg daily Assessment & Plan (01/15/2025 6:46 AM CDT): TSH 2.75, fT4 1.44 on 12/23/24. On levothyroxine. - Continue levothyroxine 75mcg daily Assessment & Plan (01/14/2025 10:44 AM CDT): TSH 2.75, fT4 1.44 on 12/23/24. On levothyroxine. - Continue levothyroxine 75mcg daily Assessment & Plan (01/14/2025 6:47 AM CDT): TSH 2.75, fT4 1.44 on 12/23/24. On levothyroxine. - Continue levothyroxine 75mcg daily Assessment & Plan (01/13/2025 6:50 AM CDT): TSH 2.75, fT4 1.44 on 12/23/24. On levothyroxine. - Continue levothyroxine 75mcg daily Assessment & Plan (01/12/2025 9:38 AM CDT): TSH 2.75, fT4 1.44 on 12/23/24. On levothyroxine. - Continue levothyroxine 75mcg daily Assessment & Plan (01/12/2025 7:08 AM CDT): TSH 2.75, fT4 1.44 on 12/23/24. On levothyroxine. - Continue levothyroxine 75mcg daily Assessment & Plan (01/11/2025 8:17 AM CDT): TSH 2.75, fT4 1.44 on 12/23/24. On levothyroxine. - Continue levothyroxine 75mcg daily Assessment & Plan (01/11/2025 6:48 AM CDT): TSH 2.75, fT4 1.44 on 12/23/24. On levothyroxine. - Continue levothyroxine 75mcg daily Assessment & Plan (01/10/2025 6:47 AM CDT): TSH 2.75, fT4 1.44 on 12/23/24. On levothyroxine. - Continue levothyroxine 75mcg daily Assessment & Plan (01/09/2025 6:44 AM CDT): TSH 2.75, fT4 1.44 on 12/23/24. On levothyroxine. - Continue levothyroxine 75mcg daily Assessment & Plan (01/08/2025 7:02 AM CDT): TSH 2.75, fT4 1.44 on 12/23/24. On levothyroxine. - Continue levothyroxine 75mcg daily Assessment & Plan (01/07/2025 11:18 AM CDT): TSH 2.75, fT4 1.44 on 12/23/24. On levothyroxine. - Continue levothyroxine 75mcg daily Assessment & Plan (01/07/2025 7:00 AM CDT): TSH 2.75, fT4 1.44 on 12/23/24. On levothyroxine. - Continue levothyroxine 75mcg daily Assessment & Plan (01/06/2025 9:01 AM CDT): TSH 2.75, fT4 1.44 on 12/23/24. On levothyroxine. - Continue levothyroxine 75mcg daily Assessment & Plan (01/06/2025 6:54 AM CDT): TSH 2.75, fT4 1.44 on 12/23/24. On levothyroxine. - Continue levothyroxine 75mcg daily Assessment & Plan (01/05/2025 6:41 AM CDT): TSH 2.75, fT4 1.44 on 12/23/24. On levothyroxine. - Continue levothyroxine 75mcg daily Assessment & Plan (01/04/2025 8:19 AM CDT): TSH 2.75, fT4 1.44 on 12/23/24. On levothyroxine. - Continue levothyroxine 75mcg daily Assessment & Plan (01/04/2025 8:05 AM CDT): TSH 2.75, fT4 1.44 on 12/23/24. On levothyroxine. - Continue levothyroxine 75mcg daily Assessment & Plan (01/03/2025 3:40 PM CDT): TSH 2.75, fT4 1.44 on 12/23/24. On levothyroxine. - Continue levothyroxine 75mcg daily Assessment & Plan (01/03/2025 9:10 AM CDT): TSH 2.75, fT4 1.44 on 12/23/24. On levothyroxine. - Continue levothyroxine 75mcg daily Assessment & Plan (01/02/2025 1:56 PM CDT): TSH 2.75, fT4 1.44 on 12/23/24. On levothyroxine. - Continue levothyroxine 75mcg daily Assessment & Plan (01/02/2025 11:51 AM CDT): TSH 2.75, fT4 1.44 on 12/23/24. On levothyroxine. - Continue levothyroxine 75mcg daily Assessment & Plan (01/01/2025 3:28 AM CDT): TSH 2.75, fT4 1.44 on 12/23/24. On levothyroxine. - Continue levothyroxine 75mcg daily Assessment & Plan (07/13/2024 10:04 AM CDT): COntinues on levoxyl. CLinically euthryoid and will follow response. Assessment & Plan (02/15/2022 10:32 AM CDT): The patient has a history of hypothyroidism for which she is on levothyroxine 75 mcg daily. - TSH 5.24 w/ normal fT4 - continue Levothyroxine 88 mcg daily Assessment & Plan (02/13/2022 11:07 AM CDT): The patient has a history of hypothyroidism for which she is on levothyroxine 75 mcg daily. - TSH 5.24 w/ normal fT4 - Uptitrated Levothyroxine to 88 mcg daily Assessment & Plan (02/12/2022 4:25 PM CDT): The patient has a history of hypothyroidism for which she is on levothyroxine 75 mcg daily. - TSH 5.24 w/ normal fT4 - Uptitrated Levothyroxine to 88 mcg daily Assessment & Plan (02/11/2022 3:08 PM CDT): The patient has a history of hypothyroidism for which she is on levothyroxine 75 mcg daily. - TSH 5.24 w/ normal fT4 - Uptitrated Levothyroxine to 88 mcg daily Assessment & Plan (02/09/2022 11:17 AM CDT): The patient has a history of hypothyroidism for which she is on levothyroxine 75 mcg daily. - TSH 5.24 w/ normal fT4 - continue home levothyroxine dose Assessment & Plan (02/08/2022 3:31 PM CDT): The patient has a history of hypothyroidism for which she is on levothyroxine 75 mcg daily. - please check TSH reflex to free T4 - continue home levothyroxine dose Assessment & Plan (05/14/2019 7:55 AM TREE [facility]INNER): Recheck thyroid functions in near future continues on Levoxyl 75 Assessment & Plan (10/09/2018 7:56 AM CDT): Recheck thyroid function next blood draw Assessment & Plan (03/18/2018 10:05 AM TREE THINNER): Recheck thyroid functions in the next few weeks Assessment & Plan (06/19/2017 1:48 PM TREE THINNER): rechecked in March, continue current treatment Assessment & Plan (12/31/2016 11:39 AM CDT): Recheck lab work in the near future Assessment & Plan (09/19/2016 11:05 AM CDT): Patient is doing very well on current medical regimen. Will continue with same treatment and monitor as clinical course dictates. Will refill meds Obstructive sleep apnea syndrome 07/31/2012 Overview (07/18/2016): Obstructive sleep apnea syndrome Assessment & Plan (07/13/2024 10:03 AM CDT): Continues on nightly CPAP to good effect. NO complications with use of CPAP Assessment & Plan (05/14/2019 7:55 AM T[facility]INNER): She is stable on current regimen we can follow Assessment & Plan (10/09/2018 7:55 AM CDT): She is stable on current regimen we can follow Assessment & Plan (03/18/2018 10:05 AM TREE THINNER): No changes currently stable on current regimen Assessment & Plan (06/19/2017 1:47 PM TREE THINNER): stable on current treatment Assessment & Plan (09/19/2016 11:10 AM CDT): Awaiting SS result from friday Hypersomnia with sleep apnea 07/31/2012 Overview (07/18/2016): Hypersomnia with sleep apnea Assessment & Plan (09/16/2017 12:00 PM CDT): We discussed sleep apnea today we can follow at this time Assessment & Plan (09/19/2016 11:04 AM CDT): As per Dr RODRIGUEZ Anxiety disorder 08/17/2008 Rheumatoid arthritis 08/17/2008 Assessment & Plan (02/10/2025 9:43 AM CDT): At home she takes HCQ 200mg MWF and MTX 2.5 Q and mobic which have been on hold given active infection - Robaxin 750mg TID PRN - Scheduled Lidocaine Patches - Scheduled tylenol - Cymbalta 30 - gabapentin 100 bid - Rheum consulted due to c/f RA flare. R elbow US with synovitis with minimal fluid. No c/f septic arthritis per ID and Rheum. -Restart meloxicam 02/08 (CT surgery was ok); restart plaquenil 02/09 Assessment & Plan (02/09/2025 7:34 AM CDT): At home she takes HCQ 200mg MWF and MTX 2.5 Q and mobic which have been on hold given active infection - Robaxin 750mg TID PRN - Scheduled Lidocaine Patches - Scheduled tylenol - Cymbalta 30 - gabapentin 100 bid - Rheum consulted due to c/f RA flare. R elbow US with synovitis with minimal fluid. No c/f septic arthritis per ID and Rheum. -Restart meloxicam 02/08 (CT surgery was ok); restart plaquenil 02/09 Assessment & Plan (02/08/2025 1:31 PM CDT): At home she takes HCQ 200mg MWF and MTX 2.5 Q and mobic which have been on hold given active infection - Robaxin 750mg TID PRN - Scheduled Lidocaine Patches - Scheduled tylenol - Cymbalta 30 - gabapentin 100 bid - Rheum consulted due to c/f RA flare. R elbow US with synovitis with minimal fluid. No c/f septic arthritis per ID and Rheum. -Restart meloxicam 02/08 (CT surgery was ok); restart plaquenil 02/09 Assessment & Plan (02/08/2025 11:49 AM CDT): Patient with RA and reporting increased symptoms. Notably, having tenderness to right elbow. Examined, findings not suspicious of septic arthritis. Communicated with rheumatology team regarding RA management in light of her on going spine infection. Ok with restarting HCQ as discussed with primary team yesterday. Prefer meloxicam and avoiding steroids if possible. Assessment & Plan (02/07/2025 12:02 PM CDT): At home she takes HCQ 200mg MWF and MTX 2.5 Q and mobic week which have been on hold given active infection - Robaxin 750mg TID PRN - Scheduled Lidocaine Patches - Scheduled tylenol - Cymbalta 30 - gabapentin 100 bid - On 02/06 rheumatology was consulted regarding the patient's concern that she was having a RA flare, they recommended US of her elbow and they were ok with resuming HCQ however the patient opted against this when offered Assessment & Plan (02/06/2025 3:30 PM CDT): At home she takes HCQ 200mg MWF and MTX 2.5 Q and mobic week which have been on hold given active infection - Robaxin 750mg TID PRN - Scheduled Lidocaine Patches - Scheduled tylenol - Cymbalta 30 - gabapentin 100 bid - On 02/06 rheumatology was consulted regarding the patient's concern that she was having a RA flare, appreciate their recs Assessment & Plan (02/05/2025 8:02 PM CDT): - likely related to RA, takes HCQ 200mg MWF and MTX 2.5 Q and mobic week which are on hold given active infection - Robaxin 750mg TID PRN - Scheduled Lidocaine Patches - Scheduled tylenol - Cymbalta 30 - gabapentin 100 bid - consider rheumatology consult for appropriate options for disease treatment, can probably resume HCQ Assessment & Plan (02/04/2025 11:12 AM CDT): -Rheumatoid arthritis present in right arm from elbow to shoulder -Home medications: Mobic, plaquenil, methotrexate -Voltaren cream to be applied when needed -Lidocaine patches -Provide heat/cold therapy for comfort -Per PM&R recs- started gabapentin 100mg BID and scheduled Tylenol Assessment & Plan (01/17/2025 7:27 AM CDT): RA on methotrexate with folate and hydroxychloroquine, as well as meloxicam. Patient was having arthritic pain, so voltaren gel was given, which improved her pain. - continue hydroxychloroquine 400mg three times weekly, folate 1mg daily - holding meloxicam given c/f TME - holding methotrexate iso possible infection Assessment & Plan (01/16/2025 11:44 AM CDT): RA on methotrexate with folate and hydroxychloroquine, as well as meloxicam. Patient was having arthritic pain, so voltaren gel was given, which improved her pain. - continue hydroxychloroquine 400mg three times weekly, folate 1mg daily - holding meloxicam given c/f TME - holding methotrexate iso possible infection Assessment & Plan (01/15/2025 6:46 AM CDT): RA on methotrexate with folate and hydroxychloroquine, as well as meloxicam. Patient was having arthritic pain, so voltaren gel was given, which improved her pain. - continue hydroxychloroquine 400mg three times weekly, folate 1mg daily - holding meloxicam given c/f TME - holding methotrexate iso possible infection Assessment & Plan (01/14/2025 10:44 AM CDT): RA on methotrexate with folate and hydroxychloroquine, as well as meloxicam. Patient was having arthritic pain, so voltaren gel was given, which improved her pain. - continue hydroxychloroquine 400mg three times weekly, folate 1mg daily - holding meloxicam given c/f TME - holding methotrexate iso possible infection Assessment & Plan (01/14/2025 6:47 AM CDT): RA on methotrexate with folate and hydroxychloroquine, as well as meloxicam. - continue hydroxychloroquine 400mg three times weekly, folate 1mg daily - holding meloxicam given c/f TME - holding methotrexate iso possible infection Assessment & Plan (01/13/2025 6:50 AM CDT): RA on methotrexate with folate and hydroxychloroquine, as well as meloxicam. - continue hydroxychloroquine 400mg three times weekly, folate 1mg daily - holding meloxicam given c/f TME - holding methotrexate iso possible infection Assessment & Plan (01/12/2025 9:38 AM CDT): RA on methotrexate with folate and hydroxychloroquine, as well as meloxicam. - continue hydroxychloroquine 400mg three times weekly, folate 1mg daily - holding meloxicam given c/f TME - holding methotrexate iso possible infection Assessment & Plan (01/12/2025 7:08 AM CDT): RA on methotrexate with folate and hydroxychloroquine, as well as meloxicam. - continue hydroxychloroquine 400mg three times weekly, folate 1mg daily - holding meloxicam given c/f TME - holding methotrexate iso possible infection Assessment & Plan (01/11/2025 8:17 AM CDT): RA on methotrexate with folate and hydroxychloroquine, as well as meloxicam. - continue hydroxychloroquine 400mg three times weekly, folate 1mg daily - holding meloxicam given c/f TME - holding methotrexate iso possible infection Assessment & Plan (01/11/2025 6:48 AM CDT): RA on methotrexate with folate and hydroxychloroquine, as well as meloxicam. - continue hydroxychloroquine 400mg three times weekly, folate 1mg daily - holding meloxicam given c/f TME - holding methotrexate iso possible infection Assessment & Plan (01/10/2025 6:47 AM CDT): RA on methotrexate with folate and hydroxychloroquine, as well as meloxicam. - continue hydroxychloroquine 400mg three times weekly, folate 1mg daily - holding meloxicam given c/f TME - holding methotrexate iso possible infection Assessment & Plan (01/09/2025 6:44 AM CDT): RA on methotrexate with folate and hydroxychloroquine, as well as meloxicam. - continue hydroxychloroquine 400mg three times weekly, folate 1mg daily - holding meloxicam given c/f TME - holding methotrexate iso possible infection Assessment & Plan (01/08/2025 7:02 AM CDT): RA on methotrexate with folate and hydroxychloroquine, as well as meloxicam. - continue hydroxychloroquine 400mg three times weekly, folate 1mg daily - holding meloxicam given c/f TME - holding methotrexate iso possible infection Assessment & Plan (01/07/2025 11:18 AM CDT): RA on methotrexate with folate and hydroxychloroquine, as well as meloxicam. - continue hydroxychloroquine 400mg three times weekly, folate 1mg daily - holding meloxicam given c/f TME - holding methotrexate iso possible infection Assessment & Plan (01/07/2025 7:00 AM CDT): RA on methotrexate with folate and hydroxychloroquine, as well as meloxicam. - continue hydroxychloroquine 400mg three times weekly, folate 1mg daily - holding meloxicam given c/f TME - holding methotrexate iso possible infection Assessment & Plan (01/06/2025 9:01 AM CDT): RA on methotrexate with folate and hydroxychloroquine, as well as meloxicam. - continue hydroxychloroquine 400mg three times weekly, folate 1mg daily - holding meloxicam given c/f TME - holding methotrexate iso possible infection Assessment & Plan (01/06/2025 6:54 AM CDT): RA on methotrexate with folate and hydroxychloroquine, as well as meloxicam. - continue hydroxychloroquine 400mg three times weekly, folate 1mg daily - holding meloxicam given c/f TME - holding methotrexate iso possible infection Assessment & Plan (01/05/2025 6:41 AM CDT): Patient reported upper extremity weakness and tremors 12/27. Physical exam appears to consistently be around 4/5 in the bilateral upper extremities. Cervical spine MRI showed disruption of the ligamentum flavum at C2, prevertebral upper cervical soft tissue edema, cervical spine subdural hemorrhage extending from C2 to C3-C4 resulting in severe canal stenosis which is secondary to a combination of spondylosis and the subdural hemorrhage, and edema throughout the C2 vertebral body/dens. PLAN: - NSGY, neurology consulted - continue hydroxychloroquine 400mg three times weekly, folate 1mg daily - holding meloxicam given c/f TME - holding methotrexate iso possible infection Assessment & Plan (01/04/2025 8:19 AM CDT): Patient reported upper extremity weakness and tremors 12/27. Physical exam appears to consistently be around 4/5 in the bilateral upper extremities. Cervical spine MRI showed disruption of the ligamentum flavum at C2, prevertebral upper cervical soft tissue edema, cervical spine subdural hemorrhage extending from C2 to C3-C4 resulting in severe canal stenosis which is secondary to a combination of spondylosis and the subdural hemorrhage, and edema throughout the C2 vertebral body/dens. PLAN: - NSGY, neurology consulted - continue hydroxychloroquine 400mg three times weekly, folate 1mg daily - holding meloxicam given c/f TME - holding methotrexate iso possible infection Assessment & Plan (01/04/2025 4:33 PM CDT): RA on methotrexate with folate and hydroxychloroquine, as well as meloxicam. - continue hydroxychloroquine 400mg three times weekly, folate 1mg daily - holding meloxicam given c/f TME - holding methotrexate iso possible infection Assessment & Plan (01/03/2025 3:40 PM CDT): Hx RA. Patient reported upper extremity weakness and tremors 12/27. On review her exam appears to consistently be around 4/5 in the bilateral upper extremities. C spine MRI showed disruption of the ligamentum flavum at C2, prevertebral upper cervical soft tissue edema, cervical spine subdural hemorrhage extending from C2 to C3-C4 resulting in severe canal stenosis which is secondary to a combination of spondylosis and the subdural hemorrhage, and edema throughout the C2 vertebral body/dens. PLAN: - NSGY, neurology consulted - continue hydroxychloroquine 400mg three times weekly, folate 1mg daily - holding meloxicam given c/f TME - holding methotrexate iso possible infection Assessment & Plan (01/03/2025 9:10 AM CDT): RA on methotrexate with folate and hydroxychloroquine, as well as meloxicam. - continue hydroxychloroquine 400mg three times weekly, folate 1mg daily - holding meloxicam given c/f TME - holding methotrexate iso possible infection Assessment & Plan (01/02/2025 1:56 PM CDT): RA on methotrexate with folate and hydroxychloroquine, as well as meloxicam. - continue hydroxychloroquine 400mg three times weekly, folate 1mg daily - holding meloxicam given c/f TME - holding methotrexate iso possible infection Assessment & Plan (01/02/2025 11:51 AM CDT): RA on methotrexate with folate and hydroxychloroquine, as well as meloxicam. - continue hydroxychloroquine 400mg three times weekly, methotrexate 20mg weekly, folate 1mg daily - holding meloxicam given c/f TME Assessment & Plan (01/01/2025 3:28 AM CDT): RA on methotrexate with folate and hydroxychloroquine, as well as meloxicam. - continue hydroxychloroquine 400mg three times weekly, methotrexate 20mg weekly, folate 1mg daily - holding meloxicam given c/f TME Resolved Problems Problem Noted Date Diagnosed Date Resolved Date Poor appetite 01/26/2025 01/31/2025 Assessment & Plan (01/28/2025 9:57 AM CDT): 01/20 MBS - advanced to regular diet, thin liquids Decrease in appetite - per daughter, not much of an eater prior to surgery Consult television newscast director for supplement management 01/22 Patient removed SBFT last night Marinol stopped for hallucinations ABLA (acute blood loss anemia) 01/22/2025 02/03/2025 Assessment & Plan (02/02/2025 9:24 AM CDT): 15 Days Post-Op Expected after surgery Current hemoglobin 7.8 Consider blood transfusion for Hgb <7 and/or hemodynamic instability No active/evident signs or symptoms of bleeding Continue monitoring with daily CBC Malnutrition 01/22/2025 01/26/2025 Assessment & Plan (01/26/2025 1:49 PM CDT): 01/20 MBS - advanced to regular diet, thin liquids Decrease in appetite - per daughter, not much of an eater prior to surgery Consult television newscast director for supplement management 01/22 Patient removed SBFT last night Added marinol for appetite stimulation Junctional rhythm 01/22/2025 01/24/2025 Assessment & Plan (01/22/2025 2:20 PM CDT): 01/17 Underlying rhythm junctional in the 60's 01/21 EP consulted, recommendations below - Recommend changing her to VVI 40 and monitoring on telemetry to determine if she develops sinus node dysfunction or evidence of AV block. - When able, please ambulate her to see if she has chronotropic intolerance. - please avoid AV kathryn blockers - If she does not have continued recovery to sinus rhythm, she would need a repeat TTE to evaluate her EF and determine the device she would require - continuous telemetry. 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 LHC performed on 01/13 and showed high-grade proximal to mid LAD with a 80-90% lesion as well as major diagonal at the lesion site with an ostial 90% lesion. Discussed with CT surgery and plan on CABG in addition to mitral valve replacement on 01/17 Plan: - Upon re-evaluating empyemas and discussing with ID, CT surgery approved operation with current state of empyemas and antibiotic course. Hold losartan for surgery. - Discussed empyemas w/ neurosurgery and IR. Do not recommend draining given their size. - Cont. to monitor electrolytes and replete as needed - ID rec Karius blood test, follow up CSF 16s Assessment & Plan (01/16/2025 11:44 AM CDT): JANELLE 01/07 revealed mild mitral regurg and a large, irregular, independently mobile echodensity consistent with vegetation attached to the P2 scallop of the posterior leaflet of the mitral valve. LHC performed on 01/13 and showed high-grade proximal to mid LAD with a 80-90% lesion as well as major diagonal at the lesion site with an ostial 90% lesion. Discussed with CT surgery and plan on CABG in addition to mitral valve replacement on 01/17 Plan: - Upon re-evaluating empyemas and discussing with ID, CT surgery approved operation with current state of empyemas and antibiotic course. Hold losartan the night before her surgery. - Discussed empyemas w/ neurosurgery and IR. Do not recommend draining given their size. - Cont. to monitor electrolytes and replete as needed - ID rec Karius blood test, follow up CSF 16s Assessment & Plan (01/15/2025 11:02 AM CDT): JANELLE 01/07 revealed mild mitral regurg and a large, irregular, independently mobile echodensity consistent with vegetation attached to the P2 scallop of the posterior leaflet of the mitral valve. LHC performed on 01/13 and showed high-grade proximal to mid LAD with a 80-90% lesion as well as major diagonal at the lesion site with an ostial 90% lesion. Discussed with CT surgery and plan on CABG in addition to mitral valve replacement on 01/17 Plan: - Upon re-evaluating empyemas and discussing with ID, CT surgery approved operation with current state of empyemas and antibiotic course. Hold losartan the night before her surgery. - Discussed empyemas w/ neurosurgery and IR. Do not recommend draining given their size. - Cont. to monitor electrolytes and replete as needed -ID rec Karius blood test, follow up CSF 16s Assessment & Plan (01/14/2025 10:44 AM CDT): JANELLE 01/07 revealed mild mitral regurg and a large, irregular, independently mobile echodensity consistent with vegetation attached to the P2 scallop of the posterior leaflet of the mitral valve. Plan: - LHC performed on 01/13 and showed high-grade proximal to mid LAD with a 80-90% lesion as well as major diagonal at the lesion site with an ostial 90% lesion. Discussed with CT surgery and plan on CABG in addition to mitral valve replacement on 01/17 - Upon re-evaluating empyemas and discussing with ID, CT surgery approved operation with current state of empyemas and antibiotic course. - Discussed empyemas w/ neurosurgery and IR. Do not recommend draining given their size. - Cont. to monitor electrolytes and replete as needed -ID rec Karius blood test, follow up CSF 16s Assessment & Plan (01/14/2025 2:15 PM CDT): JANELLE 01/07 revealed mild mitral regurg and a large, irregular, independently mobile echodensity consistent with vegetation attached to the P2 scallop of the posterior leaflet of the mitral valve. Plan: -CT surgery consulted. Mitrall valve replacement initially scheduled for 01/13, but CT surgery recommends delaying the surgery until empyemas improve. Reach out to CT surgery regarding their plans for serial imaging of the empyemas and ID regarding antibiotic course/risks of valve replacement iso empyemas. - Cardiology recommends a left heart cath prior to surgery to diagnosis potential CAD. Plan for [facility] today. - Discuss w/ ID, neurosurgery, and IR regarding management of subdural empyemas prior to MVR to maximize chance of success of replacement valve. -ID rec Karius blood test, follow up CSF 16s - Mitral valve repair scheduled for 01/17 with possible CABG -IPAP consult Assessment & Plan (01/13/2025 1:39 PM CDT): JANELLE 01/07 revealed mild mitral regurg and a large, irregular, independently mobile echodensity consistent with vegetation attached to the P2 scallop of the posterior leaflet of the mitral valve. Plan: -CT surgery consulted. Mitrall valve replacement initially scheduled for 01/13, but CT surgery recommends delaying the surgery until empyemas improve. Reach out to CT surgery regarding their plans for serial imaging of the empyemas and ID regarding antibiotic course/risks of valve replacement iso empyemas. - Cardiology recommends a left heart cath prior to surgery to diagnosis potential CAD. Plan for [facility] today. - Discuss w/ ID, neurosurgery, and IR regarding management of subdural empyemas prior to MVR to maximize chance of success of replacement valve. -ID rec Karius blood test, follow up CSF 16s Assessment & Plan (01/12/2025 10:36 AM CDT): JANELLE 01/07 revealed mild mitral regurg and a large, irregular, independently mobile echodensity consistent with vegetation attached to the P2 scallop of the posterior leaflet of the mitral valve. Plan: -CT surgery consulted. Mitrall valve replacement initially scheduled for 01/13, but CT surgery recommends delaying the surgery until empyemas improve. Reach out to CT surgery regarding their plans for serial imaging of the empyemas and ID regarding antibiotic course/risks of valve replacement iso empyemas. - Cardiology recommends a left heart cath prior to surgery to diagnosis potential CAD. Plan for [facility] today. - Discuss w/ ID, neurosurgery, and IR regarding management of subdural empyemas prior to MVR to maximize chance of success of replacement valve. -ID rec Karius blood test, follow up CSF 16s - Most recent Mg 1.6. Replete Mg w/ goal of Mg >1.8 Assessment & Plan (01/12/2025 11:13 AM CDT): JANELLE 01/07 revealed mild mitral regurg and a large, irregular, independently mobile echodensity consistent with vegetation attached to the P2 scallop of the posterior leaflet of the mitral valve. Plan: -CT surgery consulted. Postpone mitral valve replacement in setting of infection. Complete 2 weeks of antibiotic coverage, consider obtaining imagine to assess empyema evolution. - Consider sedated total spine MRI for 01/17 to assess for empyema improvement for CT surgery workup - Cardiology recommends a left heart cath prior to surgery to diagnosis potential CAD. - Discuss w/ ID, neurosurgery, and IR regarding management of subdural empyemas prior to MVR to maximize chance of success of replacement valve. -ID rec Karius blood test, follow up CSF 16s Assessment & Plan (01/11/2025 11:03 AM CDT): JANELLE 01/07 revealed mild mitral regurg and a large, irregular, independently mobile echodensity consistent with vegetation attached to the P2 scallop of the posterior leaflet of the mitral valve. Plan: -CT surgery consulted. Plan to do mitral valve replacement on 01/13. - Cardiology recommends a left heart cath prior to surgery to diagnosis potential CAD. - Discuss w/ ID, neurosurgery, and IR regarding management of subdural empyemas prior to MVR to maximize chance of success of replacement valve. -ID rec Karius blood test, follow up CSF 16s Assessment & Plan (01/11/2025 1:36 PM CDT): JANELLE 01/07 revealed mild mitral regurg and a large, irregular, independently mobile echodensity consistent with vegetation attached to the P2 scallop of the posterior leaflet of the mitral valve. Likely source of septic emboli causing infarcts seen on Brain MRI. Plan: -CT surgery consulted, Surgery later this week - [facility] before surgery with cardiology - Continue abx -ID rec Karius blood test, follow up CSF 16s Assessment & Plan (01/10/2025 11:00 AM CDT): JANELLE 01/07 revealed mild mitral regurg and a large, irregular, independently mobile echodensity consistent with vegetation attached to the P2 scallop of the posterior leaflet of the mitral valve. Plan: -CT surgery consulted, no surgery at this time, continue abx -ID rec Karius blood test, follow up CSF 16s Mitral valve vegetation 01/08/202501/12 Assessment & Plan (01/21/2025 12:31 PM CDT): Patient presented with multifocal embolic phenomena in multiple vascular territories in the brain, multifocal subdural empyemas, vertebral osteomyelitis. Neurosurgery assessed her on 01/02; stated the pachymeningeal enhancement on her MRI is unlikely to be meningitis and could represent low pressure from her [employer] shunt; unlikely to represent the cause of her AMS. 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 It is unclear whether her [employer] shunt is also involved in this process, but shunt cultures have been ngtd. Unfortunately her mental status has greatly declined during this admission; possibly 2/2 uremia vs new strokes, neurology consulted. AMS improved. Patient was started on antibiotics at OSH and has continued since admission on 12/31 at [facility]. She has continued to have embolic events despite being on broad antibiotic coverage. We are concerned that the vegetation is large and unstable enough that she will continue to embolize and antibiotics alone will not be sufficient. It was ultimately decided to proceed with surgical intervention. Diagnostically, we have pursued the following: - Blood cultures 12/28, 12/30, 01/03 all with no growth - Bone biopsy of areas of spinal osteo (path cw osteo, cultures with no growth) - Subdural fluid collections are not accessible to IR - [employer] shunt tap CSF cultures with no growth - 16S of [employer] shunt without DNA detected. -Crag, Bartonella, Q-fever, and blasto antibody negative. - histo UAg, histo Ab negative - Coty sequencing of blood - positive for streptococcus agalactiae Patient went to the OR 01/17 with CTS for MVR, JOSELYN ligation and CABG x2. Operative cultures obtained with NGTD and no organism seen. 16s in progress. Molinaius positive for streptococcus agalactiae. Recommend stopping doxycycline and continuing daptomycin and ceftriaxone to complete 6 weeks of IV antibiotics (12/27 - 02/07). Reviewed ID involvement in care with patient. Her mental status has improved today compared to yesterday. Was unable to remember which facility she was at but knew it was a medical facility but was otherwise able to answer all other questions. Called daughter, Ora, and updated on ID findings and plan going forward. Questions answered as needed. Recommendations: - d/c doxycycline - Continue Daptomycin and ceftriaxone -While on the IV antibiotics, please obtain at least a weekly cbc with diff, weekly CMP, and weekly CK - Recommend 6 weeks of antibiotics (12/27 - 02/07) -Patient will need repeat spinal imaging to assess the subdural empyemas towards the end of treatment, prior to stopping the antibiotics to assess for improvement. -Will follow up on 16s -Thank you for allowing us to participate in the care of this patient. For questions or concerns, please do not hesitate to reach out. -Please place ambulatory referral for OPAT Assessment & Plan (01/20/2025 11:14 AM CDT): Patient presented with multifocal embolic phenomena in multiple vascular territories in the brain, multifocal subdural empyemas, vertebral osteomyelitis. Neurosurgery assessed her on 01/02; stated the pachymeningeal enhancement on her MRI is unlikely to be meningitis and could represent low pressure from her [employer] shunt; unlikely to represent the cause of her AMS. 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 It is unclear whether her [employer] shunt is also involved in this process, but shunt cultures have been ngtd. Unfortunately her mental status has greatly declined during this admission; possibly 2/2 uremia vs new strokes, neurology consulted. AMS improved. Patient was started on antibiotics at OSH and has continued since admission on 12/31 at [facility]. She has continued to have embolic events despite being on broad antibiotic coverage. We are concerned that the vegetation is large and unstable enough that she will continue to embolize and antibiotics alone will not be sufficient. It was ultimately decided to proceed with surgical intervention. Diagnostically, we have pursued the following: - Blood cultures 12/28, 12/30, 01/03 all with no growth - Bone biopsy of areas of spinal osteo (path cw osteo, cultures with no growth) - Subdural fluid collections are not accessible to IR - [employer] shunt tap CSF cultures with no growth - 16S of [employer] shunt without DNA detected. -Crag, Bartonella, Q-fever, and blasto antibody negative. - histo UAg, histo Ab negative - Karius sequencing of blood - positive for streptococcus agalactiae Patient went to the OR yesterday with CTS for MVR, patch repair of abscess cavity, JOSELYN ligation and CABG x2. Operative cultures obtained with NGTD and no organism seen. 16s in progress. Karius positive for streptococcus agalactiae. On assessment, patient able to answer simple questions. Asking about a stool softener, then reporting she doesn't need one. When specifically asked, denies n/v/d, itching or rash. Family not at bedside to provide updates. Recommendations: - Continue Daptomycin, ceftriaxone, doxycycline -While on the IV antibiotics, please obtain at least a weekly cbc with diff, weekly CMP, and weekly CK - Follow up pending results -Thank you for allowing us to participate in the care of this patient. For questions or concerns, please do not hesitate to reach out. Assessment & Plan (01/18/2025 1:50 PM CDT): Patient presented with multifocal embolic phenomena in multiple vascular territories in the brain, multifocal subdural empyemas, vertebral osteomyelitis. Neurosurgery assessed her on 01/02; stated the pachymeningeal enhancement on her MRI is unlikely to be meningitis and could represent low pressure from her [employer] shunt; unlikely to represent the cause of her AMS. 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 It is unclear whether her [employer] shunt is also involved in this process, but shunt cultures have been ngtd. Unfortunately her mental status has greatly declined during this admission; possibly 2/2 uremia vs new strokes, neurology consulted. AMS improved. Patient was started on antibiotics at OSH and has continued since admission on 12/31 at [facility]. She has continued to have embolic events despite being on broad antibiotic coverage. We are concerned that the vegetation is large and unstable enough that she will continue to embolize and antibiotics alone will not be sufficient. It was ultimately decided to proceed with surgical intervention. Diagnostically, we have pursued the following: - Blood cultures 12/28, 12/30, 01/03 all with no growth - Bone biopsy of areas of spinal osteo (path cw osteo, cultures with no growth) - Subdural fluid collections are not accessible to IR - [employer] shunt tap CSF cultures with no growth - 16S of [employer] shunt without DNA detected. -Crag, Bartonella, Q-fever, and blasto antibody negative. - histo UAg, histo Ab negative - Karius sequencing of blood - positive for streptococcus agalactiae Patient went to the OR yesterday with CTS for MVR, patch repair of abscess cavity, JOSELYN ligation and CABG x2. Operative cultures obtained with NGTD and no organism seen. Linezolid changed to daptomycin and ceftriaxone changed to Q24H as recommended. At the time of seeing patient and discussing with family, Karius results negative. Results have since come back and positive for streptococcus agalactiae. Patient on antibiotics that will appropriately treat this organism. Will follow up on heart valve results. Recommendations: - Continue Daptomycin, ceftriaxone, doxycycline -While on the IV antibiotics, please obtain at least a weekly cbc with diff, weekly CMP, and weekly CK - Follow up pending results -Thank you for allowing us to participate in the care of this patient. For questions or concerns, please do not hesitate to reach out. Assessment & Plan (01/12/2025 1:17 PM CDT): Patient presented with multifocal embolic phenomena in multiple vascular territories in the brain, multifocal subdural empyemas, vertebral osteomyelitis. Neurosurgery assessed her on 01/02; stated the pachymeningeal enhancement on her MRI is unlikely to be meningitis and could represent low pressure from her [employer] shunt; unlikely to represent the cause of her AMS. 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 It is unclear whether her [employer] shunt is also involved in this process, but shunt cultures have been ngtd. Unfortunately her mental status has greatly declined during this admission; possibly 2/2 uremia vs new strokes, neurology consulted. Diagnostically, we have pursued the following: - Blood cultures 12/28, 12/30, 01/03 all with no growth - Bone biopsy of areas of spinal osteo (path cw osteo, cultures with no growth) - Subdural fluid collections are not accessible to IR - CAL[employer] shunt tap CSF cultures with no growth - 16S of CALENDER WIND UP TENDER shunt without DNA detected. -Crag, Bartonella, Q-fever, and blasto antibody negative. - histo UAg, histo Ab pending - Karius sequencing of blood pending Mental status stable. Patient sleeping on assessment today, appears comfortable. Plan for [facility] today on review. Brief CTS note comments on holding off on surgical intervention 2/2 subdural empyema, minimal valve dysfunction and c/f possible endocarditis recurrence of new valve in light of of empyema. Patient was started on antibiotics at OSH and has continued since admission on 12/31 at [facility]. She has continued to have embolic events despite being on broad antibiotic coverage. We are concerned that the vegetation is large and unstable enough that she will continue to embolize and antibiotics alone will not be sufficient. ID attending has reached out to CTS attending to further discuss. Updated patient's daughter. Of note, daughter is still wanting to discuss with CTS Recommendations: - Continue linezolid, ceftriaxone, doxycycline -While on the IV antibiotics, please obtain at least a weekly cbc with diff and weekly CMP. - Follow up pending results - Appreciate CTS recs. If plan is for surgical intervention, please obtain operative cultures and 16s. - Planning on 2 weeks of COMPOSITION MOLDER penetrating coverage in the event she does have meningitis if possible - Will need 6 weeks of antibiotics for treatment of endocarditis Assessment & Plan (01/11/2025 12:43 PM CDT): Patient presented with multifocal embolic phenomena in multiple vascular territories in the brain, multifocal subdural empyemas, vertebral osteomyelitis. Neurosurgery assessed her on 01/02; stated the pachymeningeal enhancement on her MRI is unlikely to be meningitis and could represent low pressure from her CALENDER WIND [employer] TENDER shunt; unlikely to represent the cause of her AMS. 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 It is unclear whether her CAL[employer] W[employer]ER shunt is also involved in this process, but shunt cultures have been ngtd. Unfortunately her mental status has greatly declined during this admission; possibly 2/2 uremia vs new strokes, neurology consulted. Diagnostically, we have pursued the following: - Blood cultures 12/28, 12/30, 01/03 all with no growth - Bone biopsy of areas of spinal osteo (path cw osteo, cultures with no growth) - Subdural fluid collections are not accessible to IR - CALEND[employer] W[employer]ER shunt tap CSF cultures with no growth - 16S of CALENDER WIND UP TENDER shunt pending -Crag, Bartonella, Q-fever, and blasto antibody negative. - histo UAg, histo Ab pending - Karius sequencing of blood pending Mental status stable. Patient sleeping on assessment today, but woke up and answered simple questions. Reviewed ID involvement in care with patient and daughter. Discussed antibiotic plans and support for CTS intervention. Panorex obtained yesterday and negative. On chart review, patient scheduled for 01/14 for OR. Please send cultures. Patient and daughter with many surgical questions and requesting to speak to CTS. Recommendations: - Continue linezolid, ceftriaxone, doxycycline -While on the IV antibiotics, please obtain at least a weekly cbc with diff and weekly CMP. - Follow up pending results - Appreciate CTS recs. If plan is for surgical intervention, please obtain operative cultures and 16s. - Planning on 2 weeks of COMPOSITION MOLDER penetrating coverage in the event she does have meningitis if possible - Will need 6 weeks of antibiotics for treatment of endocarditis Assessment & Plan (01/10/2025 11:23 AM CDT): Patient presented with multifocal embolic phenomena in multiple vascular territories in the brain, multifocal subdural empyemas, vertebral osteomyelitis. Neurosurgery assessed her on 01/02; stated the pachymeningeal enhancement on her MRI is unlikely to be meningitis and could represent low pressure from her CAL[employer] W[employer] T[employer]ER shunt; unlikely to represent the cause of her AMS. 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 It is unclear whether her [employer] shunt is also involved in this process, but shunt cultures have been ngtd. Unfortunately her mental status has greatly declined during this admission; possibly 2/2 uremia vs new strokes, neurology consulted. Crag negative. Diagnostically, we have pursued the following: - Blood cultures 12/28, 12/30, 01/03 all with no growth - Bone biopsy of areas of spinal osteo (path cw osteo, cultures with no growth) - Subdural fluid collections are not accessible to IR - CALEND[employer] W[employer]ER shunt tap CSF cultures with no growth - 16S of CALEND[employer] W[employer] UP TENDER shunt pending - Culture-negative endocarditis non-invasive workup pending (histo UAg, bartonella Ab, Q fever Ab, histo/blasto Ab) - Karius sequencing of blood pending Mental status has significantly improved. Reviewed ID involvement in care with patient and daughter. Discussed antibiotic plans and support for CTS intervention. Patient tolerating antibiotics well, questions answered as able. Patient reports her last dental cleaning was in June. Denies any dental pain. Does reports she has not been very good about taking care of her teeth starting in October. Recommend obtaining Panorex to assess for possible source. Recommendations: - Continue linezolid, ceftriaxone, doxycycline -While on the IV antibiotics, please obtain at least a weekly cbc with diff and weekly CMP. - Follow up pending Bartonella, Q-fever, histo antibody and urine histo antigen, blasto antibody, and a crypto antigen - Follow up pending CSF 16S and Karius blood test -Please obtain panorex - Appreciate CTS recs. If plan is for surgical intervention, please obtain operative cultures and 16s. - Planning on 2 weeks of COMPOSITION MOLDER penetrating coverage in the event she does have meningitis - Will need 6 weeks of antibiotics for treatment of endocarditis Assessment & Plan (01/09/2025 8:43 AM CDT): JANELLE 01/07 revealed mild mitral regurg and a large, irregular, independently mobile echodensity consistent with vegetation attached to the P2 scallop of the posterior leaflet of the mitral valve. Plan: -CT surgery consulted, no surgery at this time, continue abx and wait for mental status improvement. -ID rec Karius blood test, follow up CSF 16s Assessment & Plan (01/08/2025 5:15 PM CDT): Patient presented with multifocal embolic phenomena in multiple vascular territories in the brain, multifocal subdural empyemas, vertebral osteomyelitis. 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 It is unclear whether her [employer] W[employer] T[employer]ER shunt is also involved in this process, but shunt cultures have been ngtd. Unfortunately her mental status has greatly declined during this admission; possibly 2/2 uremia vs new strokes, neurology consulted. Diagnostically, we have pursued the following: - Blood cultures 12/28, 12/30, 01/03 all with no growth - Bone biopsy of areas of spinal osteo (path cw osteo, cultures with no growth) - Subdural fluid collections are not accessible to IR - CALEND[employer] W[employer] TENDER shunt tap CSF cultures with no growth - 16S of CALENDER WIND UP TENDER shunt pending - Culture-negative endocarditis non-invasive workup pending (histo UAg, bartonella Ab, Q fever Ab, histo/blasto Ab, Crag) - Will send Karius sequencing of blood Therapeutically: - Ongoing CT surgery assessment to determine surgical candidacy. In addition to addressing the vegetation itself, this would also enable us to obtain cardiac tissue for 16S which would likely be the highest diagnostic yield test in her case. However, repeat MRI is in progress to stratify neurological risk of anticoagulation for this surgery, she may be too high risk. - Continue broad-spectrum COMPOSITION MOLDER-penetrating antibiotics (linezolid 600mg BID + ceftriaxone 2g BID) + doxycycline 100mg BID for atypical coverage Neurosurgery assessed her on 01/02; stated the pachymeningeal enhancement on her MRI is unlikely to be meningitis and could represent low pressure from her CAL[employer] W[employer] TENDER shunt; unlikely to represent the cause of her AMS. Imaging has been concerning for discitis-osteomyelitis of T1-T2 and T12-L1 as well as subdural empyemas of the C-spine and T-spine. Recommendations: - Continue linezolid, ceftriaxone, doxycycline -While on the IV antibiotics, please obtain at least a weekly cbc with diff and weekly CMP. - Follow up pending Bartonella, Q-fever, histo antibody and urine histo antigen, blasto antibody, and a crypto antigen - Follow up pending CSF 16S - Obtain sample for Karius blood test tomorrow am Assessment & Plan (01/08/2025 7:58 AM CDT): JANELLE 01/07 revealed mild mitral regurg and a large, irregular, independently mobile echodensity consistent with vegetation attached to the P2 scallop of the posterior leaflet of the mitral valve. Plan: CT surgery consulted, no surgery at this time, continue abx and wait for mental status improvement. Culture-negative endocarditis 01/08/2025 01/22/2025 Assessment & Plan (01/21/2025 12:31 PM CDT): Patient presented with multifocal embolic phenomena in multiple vascular territories in the brain, multifocal subdural empyemas, vertebral osteomyelitis. Neurosurgery assessed her on 01/02; stated the pachymeningeal enhancement on her MRI is unlikely to be meningitis and could represent low pressure from her CAL[employer] W[employer] T[employer]ER shunt; unlikely to represent the cause of her AMS. 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 It is unclear whether her [employer] W[employer] T[employer]ER shunt is also involved in this process, but shunt cultures have been ngtd. Unfortunately her mental status has greatly declined during this admission; possibly 2/2 uremia vs new strokes, neurology consulted. AMS improved. Patient was started on antibiotics at OSH and has continued since admission on 12/31 at [facility]. She has continued to have embolic events despite being on broad antibiotic coverage. We are concerned that the vegetation is large and unstable enough that she will continue to embolize and antibiotics alone will not be sufficient. It was ultimately decided to proceed with surgical intervention. Diagnostically, we have pursued the following: - Blood cultures 12/28, 12/30, 01/03 all with no growth - Bone biopsy of areas of spinal osteo (path cw osteo, cultures with no growth) - Subdural fluid collections are not accessible to IR - CAL[employer] W[employer] T[employer]ER shunt tap CSF cultures with no growth - 16S of CALENDER WIND UP TENDER shunt without DNA detected. -Crag, Bartonella, Q-fever, and blasto antibody negative. - histo UAg, histo Ab negative - Karius sequencing of blood - positive for streptococcus agalactiae Patient went to the OR 01/17 with CTS for MVR, JOSELYN ligation and CABG x2. Operative cultures obtained with NGTD and no organism seen. 16s in progress. Karius positive for streptococcus agalactiae. Recommend stopping doxycycline and continuing daptomycin and ceftriaxone to complete 6 weeks of IV antibiotics (12/27 - 02/07). Reviewed ID involvement in care with patient. Her mental status has improved today compared to yesterday. Was unable to remember which facility she was at but knew it was a medical facility but was otherwise able to answer all other questions. Called daughter, Ora, and updated on ID findings and plan going forward. Questions answered as needed. Recommendations: - d/c doxycycline - Continue Daptomycin and ceftriaxone -While on the IV antibiotics, please obtain at least a weekly cbc with diff, weekly CMP, and weekly CK - Recommend 6 weeks of antibiotics (12/27 - 02/07) -Patient will need repeat spinal imaging to assess the subdural empyemas towards the end of treatment, prior to stopping the antibiotics to assess for improvement. -Will follow up on 16s -Thank you for allowing us to participate in the care of this patient. For questions or concerns, please do not hesitate to reach out. -Please place ambulatory referral for OPAT Assessment & Plan (01/20/2025 11:14 AM CDT): Patient presented with multifocal embolic phenomena in multiple vascular territories in the brain, multifocal subdural empyemas, vertebral osteomyelitis. Neurosurgery assessed her on 01/02; stated the pachymeningeal enhancement on her MRI is unlikely to be meningitis and could represent low pressure from her CAL[employer] W[employer] TENDER shunt; unlikely to represent the cause of her AMS. 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 It is unclear whether her [employer] W[employer] TENDER shunt is also involved in this process, but shunt cultures have been ngtd. Unfortunately her mental status has greatly declined during this admission; possibly 2/2 uremia vs new strokes, neurology consulted. AMS improved. Patient was started on antibiotics at OSH and has continued since admission on 12/31 at [facility]. She has continued to have embolic events despite being on broad antibiotic coverage. We are concerned that the vegetation is large and unstable enough that she will continue to embolize and antibiotics alone will not be sufficient. It was ultimately decided to proceed with surgical intervention. Diagnostically, we have pursued the following: - Blood cultures 12/28, 12/30, 01/03 all with no growth - Bone biopsy of areas of spinal osteo (path cw osteo, cultures with no growth) - Subdural fluid collections are not accessible to IR - CAL[employer] W[employer] T[employer]ER shunt tap CSF cultures with no growth - 16S of CALEND[employer] W[employer] T[employer]ER shunt without DNA detected. -Crag, Bartonella, Q-fever, and blasto antibody negative. - histo UAg, histo Ab negative - Karius sequencing of blood - positive for streptococcus agalactiae Patient went to the OR yesterday with CTS for MVR, patch repair of abscess cavity, JOSELYN ligation and CABG x2. Operative cultures obtained with NGTD and no organism seen. 16s in progress. Coty positive for streptococcus agalactiae. On assessment, patient able to answer simple questions. Asking about a stool softener, then reporting she doesn't need one. When specifically asked, denies n/v/d, itching or rash. Family not at bedside to provide updates. Recommendations: - Continue Daptomycin, ceftriaxone, doxycycline -While on the IV antibiotics, please obtain at least a weekly cbc with diff, weekly CMP, and weekly CK - Follow up pending results -Thank you for allowing us to participate in the care of this patient. For questions or concerns, please do not hesitate to reach out. Assessment & Plan (01/18/2025 1:50 PM CDT): Patient presented with multifocal embolic phenomena in multiple vascular territories in the brain, multifocal subdural empyemas, vertebral osteomyelitis. Neurosurgery assessed her on 01/02; stated the pachymeningeal enhancement on her MRI is unlikely to be meningitis and could represent low pressure from her CAL[employer] W[employer] T[employer]ER shunt; unlikely to represent the cause of her AMS. 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 It is unclear whether her [employer] T[employer]ER shunt is also involved in this process, but shunt cultures have been ngtd. Unfortunately her mental status has greatly declined during this admission; possibly 2/2 uremia vs new strokes, neurology consulted. AMS improved. Patient was started on antibiotics at OSH and has continued since admission on 12/31 at [facility]. She has continued to have embolic events despite being on broad antibiotic coverage. We are concerned that the vegetation is large and unstable enough that she will continue to embolize and antibiotics alone will not be sufficient. It was ultimately decided to proceed with surgical intervention. Diagnostically, we have pursued the following: - Blood cultures 12/28, 12/30, 01/03 all with no growth - Bone biopsy of areas of spinal osteo (path cw osteo, cultures with no growth) - Subdural fluid collections are not accessible to IR - CALEND[employer] W[employer] TENDER shunt tap CSF cultures with no growth - 16S of CALENDER WIND UP TENDER shunt without DNA detected. -Crag, Bartonella, Q-fever, and blasto antibody negative. - histo UAg, histo Ab negative - Karius sequencing of blood - positive for streptococcus agalactiae Patient went to the OR yesterday with CTS for MVR, patch repair of abscess cavity, JOSELYN ligation and CABG x2. Operative cultures obtained with NGTD and no organism seen. Linezolid changed to daptomycin and ceftriaxone changed to Q24H as recommended. At the time of seeing patient and discussing with family, Karius results negative. Results have since come back and positive for streptococcus agalactiae. Patient on antibiotics that will appropriately treat this organism. Will follow up on heart valve results. Recommendations: - Continue Daptomycin, ceftriaxone, doxycycline -While on the IV antibiotics, please obtain at least a weekly cbc with diff, weekly CMP, and weekly CK - Follow up pending results -Thank you for allowing us to participate in the care of this patient. For questions or concerns, please do not hesitate to reach out. Assessment & Plan (01/17/2025 7:27 AM CDT): JANELLE 01/07 revealed mild mitral regurg and a large, irregular, independently mobile echodensity consistent with vegetation attached to the P2 scallop of the posterior leaflet of the mitral valve. LHC performed on 01/13 and showed high-grade proximal to mid LAD with a 80-90% lesion as well as major diagonal at the lesion site with an ostial 90% lesion. Discussed with CT surgery and plan on CABG in addition to mitral valve replacement on 01/17 Plan: - Upon re-evaluating empyemas and discussing with ID, CT surgery approved operation with current state of empyemas and antibiotic course. Hold losartan for surgery. - Discussed empyemas w/ neurosurgery and IR. Do not recommend draining given their size. - Cont. to monitor electrolytes and replete as needed - ID rec Karius blood test, follow up CSF 16s Assessment & Plan (01/16/2025 11:44 AM CDT): JANELLE 01/07 revealed mild mitral regurg and a large, irregular, independently mobile echodensity consistent with vegetation attached to the P2 scallop of the posterior leaflet of the mitral valve. LHC performed on 01/13 and showed high-grade proximal to mid LAD with a 80-90% lesion as well as major diagonal at the lesion site with an ostial 90% lesion. Discussed with CT surgery and plan on CABG in addition to mitral valve replacement on 01/17 Plan: - Upon re-evaluating empyemas and discussing with ID, CT surgery approved operation with current state of empyemas and antibiotic course. Hold losartan the night before her surgery. - Discussed empyemas w/ neurosurgery and IR. Do not recommend draining given their size. - Cont. to monitor electrolytes and replete as needed - ID rec Karius blood test, follow up CSF 16s Assessment & Plan (01/15/2025 11:02 AM CDT): JANELLE 01/07 revealed mild mitral regurg and a large, irregular, independently mobile echodensity consistent with vegetation attached to the P2 scallop of the posterior leaflet of the mitral valve. LHC performed on 01/13 and showed high-grade proximal to mid LAD with a 80-90% lesion as well as major diagonal at the lesion site with an ostial 90% lesion. Discussed with CT surgery and plan on CABG in addition to mitral valve replacement on 01/17 Plan: - Upon re-evaluating empyemas and discussing with ID, CT surgery approved operation with current state of empyemas and antibiotic course. Hold losartan the night before her surgery. - Discussed empyemas w/ neurosurgery and IR. Do not recommend draining given their size. - Cont. to monitor electrolytes and replete as needed -ID rec Karius blood test, follow up CSF 16s Assessment & Plan (01/14/2025 10:44 AM CDT): JANELLE 01/07 revealed mild mitral regurg and a large, irregular, independently mobile echodensity consistent with vegetation attached to the P2 scallop of the posterior leaflet of the mitral valve. Plan: - LHC performed on 01/13 and showed high-grade proximal to mid LAD with a 80-90% lesion as well as major diagonal at the lesion site with an ostial 90% lesion. Discussed with CT surgery and plan on CABG in addition to mitral valve replacement on 01/17 - Upon re-evaluating empyemas and discussing with ID, CT surgery approved operation with current state of empyemas and antibiotic course. - Discussed empyemas w/ neurosurgery and IR. Do not recommend draining given their size. - Cont. to monitor electrolytes and replete as needed -ID rec Karius blood test, follow up CSF 16s Assessment & Plan (01/14/2025 2:15 PM CDT): JANELLE 01/07 revealed mild mitral regurg and a large, irregular, independently mobile echodensity consistent with vegetation attached to the P2 scallop of the posterior leaflet of the mitral valve. Plan: -CT surgery consulted. Mitrall valve replacement initially scheduled for 01/13, but CT surgery recommends delaying the surgery until empyemas improve. Reach out to CT surgery regarding their plans for serial imaging of the empyemas and ID regarding antibiotic course/risks of valve replacement iso empyemas. - Cardiology recommends a left heart cath prior to surgery to diagnosis potential CAD. Plan for LHC today. - Discuss w/ ID, neurosurgery, and IR regarding management of subdural empyemas prior to MVR to maximize chance of success of replacement valve. -ID rec Karius blood test, follow up CSF 16s - Mitral valve repair scheduled for 01/17 with possible CABG -IPAP consult Assessment & Plan (01/13/2025 1:39 PM CDT): JANELLE 01/07 revealed mild mitral regurg and a large, irregular, independently mobile echodensity consistent with vegetation attached to the P2 scallop of the posterior leaflet of the mitral valve. Plan: -CT surgery consulted. Mitrall valve replacement initially scheduled for 01/13, but CT surgery recommends delaying the surgery until empyemas improve. Reach out to CT surgery regarding their plans for serial imaging of the empyemas and ID regarding antibiotic course/risks of valve replacement iso empyemas. - Cardiology recommends a left heart cath prior to surgery to diagnosis potential CAD. Plan for LHC today. - Discuss w/ ID, neurosurgery, and IR regarding management of subdural empyemas prior to MVR to maximize chance of success of replacement valve. -ID rec Karius blood test, follow up CSF 16s Assessment & Plan (01/12/2025 1:17 PM CDT): Patient presented with multifocal embolic phenomena in multiple vascular territories in the brain, multifocal subdural empyemas, vertebral osteomyelitis. Neurosurgery assessed her on 01/02; stated the pachymeningeal enhancement on her MRI is unlikely to be meningitis and could represent low pressure from her [employer] shunt; unlikely to represent the cause of her AMS. 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 It is unclear whether her [employer] shunt is also involved in this process, but shunt cultures have been ngtd. Unfortunately her mental status has greatly declined during this admission; possibly 2/2 uremia vs new strokes, neurology consulted. Diagnostically, we have pursued the following: - Blood cultures 12/28, 12/30, 01/03 all with no growth - Bone biopsy of areas of spinal osteo (path cw osteo, cultures with no growth) - Subdural fluid collections are not accessible to IR - [employer] shunt tap CSF cultures with no growth - 16S of CAL[employer] shunt without DNA detected. -Crag, Bartonella, Q-fever, and blasto antibody negative. - histo UAg, histo Ab pending - Karius sequencing of blood pending Mental status stable. Patient sleeping on assessment today, appears comfortable. Plan for [facility] today on review. Brief CTS note comments on holding off on surgical intervention 2/2 subdural empyema, minimal valve dysfunction and c/f possible endocarditis recurrence of new valve in light of of empyema. Patient was started on antibiotics at OSH and has continued since admission on 12/31 at [facility]. She has continued to have embolic events despite being on broad antibiotic coverage. We are concerned that the vegetation is large and unstable enough that she will continue to embolize and antibiotics alone will not be sufficient. ID attending has reached out to CTS attending to further discuss. Updated patient's daughter. Of note, daughter is still wanting to discuss with CTS Recommendations: - Continue linezolid, ceftriaxone, doxycycline -While on the IV antibiotics, please obtain at least a weekly cbc with diff and weekly CMP. - Follow up pending results - Appreciate CTS recs. If plan is for surgical intervention, please obtain operative cultures and 16s. - Planning on 2 weeks of COMPOSITION MOLDER penetrating coverage in the event she does have meningitis if possible - Will need 6 weeks of antibiotics for treatment of endocarditis Assessment & Plan (01/12/2025 10:36 AM CDT): JANELLE 01/07 revealed mild mitral regurg and a large, irregular, independently mobile echodensity consistent with vegetation attached to the P2 scallop of the posterior leaflet of the mitral valve. Plan: -CT surgery consulted. Mitrall valve replacement initially scheduled for 01/13, but CT surgery recommends delaying the surgery until empyemas improve. Reach out to CT surgery regarding their plans for serial imaging of the empyemas and ID regarding antibiotic course/risks of valve replacement iso empyemas. - Cardiology recommends a left heart cath prior to surgery to diagnosis potential CAD. Plan for [facility] today. - Discuss w/ ID, neurosurgery, and IR regarding management of subdural empyemas prior to MVR to maximize chance of success of replacement valve. -ID rec Karius blood test, follow up CSF 16s - Most recent Mg 1.6. Replete Mg w/ goal of Mg >1.8 Assessment & Plan (01/12/2025 11:13 AM CDT): JANELLE 01/07 revealed mild mitral regurg and a large, irregular, independently mobile echodensity consistent with vegetation attached to the P2 scallop of the posterior leaflet of the mitral valve. Plan: -CT surgery consulted. Postpone mitral valve replacement in setting of infection. Complete 2 weeks of antibiotic coverage, consider obtaining imagine to assess empyema evolution. - Consider sedated total spine MRI for 01/17 to assess for empyema improvement for CT surgery workup - Cardiology recommends a left heart cath prior to surgery to diagnosis potential CAD. - Discuss w/ ID, neurosurgery, and IR regarding management of subdural empyemas prior to MVR to maximize chance of success of replacement valve. -ID rec Karius blood test, follow up CSF 16s Assessment & Plan (01/11/2025 12:43 PM CDT): Patient presented with multifocal embolic phenomena in multiple vascular territories in the brain, multifocal subdural empyemas, vertebral osteomyelitis. Neurosurgery assessed her on 01/02; stated the pachymeningeal enhancement on her MRI is unlikely to be meningitis and could represent low pressure from her [employer] shunt; unlikely to represent the cause of her AMS. 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 It is unclear whether her [employer] shunt is also involved in this process, but shunt cultures have been ngtd. Unfortunately her mental status has greatly declined during this admission; possibly 2/2 uremia vs new strokes, neurology consulted. Diagnostically, we have pursued the following: - Blood cultures 12/28, 12/30, 01/03 all with no growth - Bone biopsy of areas of spinal osteo (path cw osteo, cultures with no growth) - Subdural fluid collections are not accessible to IR - [employer] shunt tap CSF cultures with no growth - 16S of [employer] shunt pending -Crag, Bartonella, Q-fever, and blasto antibody negative. - histo UAg, histo Ab pending - Karius sequencing of blood pending Mental status stable. Patient sleeping on assessment today, but woke up and answered simple questions. Reviewed ID involvement in care with patient and daughter. Discussed antibiotic plans and support for CTS intervention. Panorex obtained yesterday and negative. On chart review, patient scheduled for 01/14 for OR. Please send cultures. Patient and daughter with many surgical questions and requesting to speak to CTS. Recommendations: - Continue linezolid, ceftriaxone, doxycycline -While on the IV antibiotics, please obtain at least a weekly cbc with diff and weekly CMP. - Follow up pending results - Appreciate CTS recs. If plan is for surgical intervention, please obtain operative cultures and 16s. - Planning on 2 weeks of COMPOSITION MOLDER penetrating coverage in the event she does have meningitis if possible - Will need 6 weeks of antibiotics for treatment of endocarditis Assessment & Plan (01/11/2025 11:03 AM CDT): JANELLE 01/07 revealed mild mitral regurg and a large, irregular, independently mobile echodensity consistent with vegetation attached to the P2 scallop of the posterior leaflet of the mitral valve. Plan: -CT surgery consulted. Plan to do mitral valve replacement on 01/13. - Cardiology recommends a left heart cath prior to surgery to diagnosis potential CAD. - Discuss w/ ID, neurosurgery, and IR regarding management of subdural empyemas prior to MVR to maximize chance of success of replacement valve. -ID rec Karius blood test, follow up CSF 16s Assessment & Plan (01/11/2025 1:36 PM CDT): JANELLE 9/26 revealed mild mitral regurg and a large, irregular, independently mobile echodensity consistent with vegetation attached to the P2 scallop of the posterior leaflet of the mitral valve. Likely source of septic emboli causing infarcts seen on Brain MRI. Plan: -CT surgery consulted, Surgery later this week - [facility] before surgery with cardiology - Continue abx -ID rec Karius blood test, follow up CSF 16s Assessment & Plan (01/10/2025 11:23 AM CDT): Patient presented with multifocal embolic phenomena in multiple vascular territories in the brain, multifocal subdural empyemas, vertebral osteomyelitis. Neurosurgery assessed her on 01/02; stated the pachymeningeal enhancement on her MRI is unlikely to be meningitis and could represent low pressure from her [employer] shunt; unlikely to represent the cause of her AMS. 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 It is unclear whether her [employer] shunt is also involved in this process, but shunt cultures have been ngtd. Unfortunately her mental status has greatly declined during this admission; possibly 2/2 uremia vs new strokes, neurology consulted. Crag negative. Diagnostically, we have pursued the following: - Blood cultures 12/28, 12/30, 01/03 all with no growth - Bone biopsy of areas of spinal osteo (path cw osteo, cultures with no growth) - Subdural fluid collections are not accessible to IR - [employer] shunt tap CSF cultures with no growth - 16S of CAL[employer] shunt pending - Culture-negative endocarditis non-invasive workup pending (histo UAg, bartonella Ab, Q fever Ab, histo/blasto Ab) - Karius sequencing of blood pending Mental status has significantly improved. Reviewed ID involvement in care with patient and daughter. Discussed antibiotic plans and support for CTS intervention. Patient tolerating antibiotics well, questions answered as able. Patient reports her last dental cleaning was in June. Denies any dental pain. Does reports she has not been very good about taking care of her teeth starting in October. Recommend obtaining Panorex to assess for possible source. Recommendations: - Continue linezolid, ceftriaxone, doxycycline -While on the IV antibiotics, please obtain at least a weekly cbc with diff and weekly CMP. - Follow up pending Bartonella, Q-fever, histo antibody and urine histo antigen, blasto antibody, and a crypto antigen - Follow up pending CSF 16S and Karius blood test -Please obtain panorex - Appreciate CTS recs. If plan is for surgical intervention, please obtain operative cultures and 16s. - Planning on 2 weeks of COMPOSITION MOLDER penetrating coverage in the event she does have meningitis - Will need 6 weeks of antibiotics for treatment of endocarditis Assessment & Plan (01/10/2025 11:00 AM CDT): JANELLE 01/07 revealed mild mitral regurg and a large, irregular, independently mobile echodensity consistent with vegetation attached to the P2 scallop of the posterior leaflet of the mitral valve. Plan: -CT surgery consulted, no surgery at this time, continue abx -ID rec Karius blood test, follow up CSF 16s Assessment & Plan (01/09/2025 8:43 AM CDT): JANELLE 01/07 revealed mild mitral regurg and a large, irregular, independently mobile echodensity consistent with vegetation attached to the P2 scallop of the posterior leaflet of the mitral valve. Plan: -CT surgery consulted, no surgery at this time, continue abx and wait for mental status improvement. -ID rec Karius blood test, follow up CSF 16s Assessment & Plan (01/08/2025 5:15 PM CDT): Patient presented with multifocal embolic phenomena in multiple vascular territories in the brain, multifocal subdural empyemas, vertebral osteomyelitis. 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 It is unclear whether her [employer] shunt is also involved in this process, but shunt cultures have been ngtd. Unfortunately her mental status has greatly declined during this admission; possibly 2/2 uremia vs new strokes, neurology consulted. Diagnostically, we have pursued the following: - Blood cultures 12/28, 12/30, 01/03 all with no growth - Bone biopsy of areas of spinal osteo (path cw osteo, cultures with no growth) - Subdural fluid collections are not accessible to IR - [employer] shunt tap CSF cultures with no growth - 16S of CAL[employer]ER shunt pending - Culture-negative endocarditis non-invasive workup pending (histo UAg, bartonella Ab, Q fever Ab, histo/blasto Ab, Crag) - Will send Karius sequencing of blood Therapeutically: - Ongoing CT surgery assessment to determine surgical candidacy. In addition to addressing the vegetation itself, this would also enable us to obtain cardiac tissue for 16S which would likely be the highest diagnostic yield test in her case. However, repeat MRI is in progress to stratify neurological risk of anticoagulation for this surgery, she may be too high risk. - Continue broad-spectrum COMPOSITION MOLDER-penetrating antibiotics (linezolid 600mg BID + ceftriaxone 2g BID) + doxycycline 100mg BID for atypical coverage Neurosurgery assessed her on 01/02; stated the pachymeningeal enhancement on her MRI is unlikely to be meningitis and could represent low pressure from her [employer] shunt; unlikely to represent the cause of her AMS. Imaging has been concerning for discitis-osteomyelitis of T1-T2 and T12-L1 as well as subdural empyemas of the C-spine and T-spine. Recommendations: - Continue linezolid, ceftriaxone, doxycycline -While on the IV antibiotics, please obtain at least a weekly cbc with diff and weekly CMP. - Follow up pending Bartonella, Q-fever, histo antibody and urine histo antigen, blasto antibody, and a crypto antigen - Follow up pending CSF 16S - Obtain sample for Karius blood test tomorrow am ANDREIA (acute kidney injury) 01/06/2025 Assessment & Plan (01/11/2025 8:17 AM CDT): CR decreased to 1.06 Plan: -discontinue IVMF -Nephro consulted -Monitor Na in setting of chronic mild-moderate hyponatremia -Optimize renal perfusion, maintain MAP >65, hgb>7. Assessment & Plan (01/11/2025 8:23 AM CDT): Plan: -discontinue IVMF -Nephro consulted -Monitor Na in setting of chronic mild-moderate hyponatremia -Optimize renal perfusion, maintain MAP >65, hgb>7. Assessment & Plan (01/10/2025 11:23 AM CDT): Nephrology following, likely multifactorial in the setting of IV contrast, vancomycin, acyclovir, gabapentin Assessment & Plan (01/10/2025 11:00 AM CDT): CR decreased to 1.06 Plan: -discontinue IVMF -Nephro consulted -Monitor Na in setting of chronic mild-moderate hyponatremia -Optimize renal perfusion, maintain MAP >65, hgb>7. Assessment & Plan (01/09/2025 6:44 AM CDT): CR decreased to 1.41, vanc level decreased to 24. Plan: -discontinue IVMF -Nephro consulted -BID Na check -Monitor Na in setting of chronic mild-moderate hyponatremia -Optimize renal perfusion, maintain MAP >65, hgb>7. -Hold Losartan Assessment & Plan (01/08/2025 5:15 PM CDT): Nephrology following, likely multifactorial in the setting of IV contrast, vancomycin, acyclovir, gabapentin Assessment & Plan (01/08/2025 7:58 AM CDT): CR decreased to 1.41, vanc level decreased to 24. Plan: -discontinue IVMF -Nephro consulted -BID Na check -Monitor Na in setting of chronic mild-moderate hyponatremia -Optimize renal perfusion, maintain MAP >65, hgb>7. -Hold Losartan Assessment & Plan (01/07/2025 12:27 PM CDT): Appreciate nephrology recommendations. Assessment & Plan (01/07/2025 11:18 AM CDT): CR increased to 2.22, vanc level 39. -Nephro consulted -LR IVMF 100ml/hr -BID Na check -Monitor Na in setting of chronic mild-moderate hyponatremia -Optimize renal perfusion, maintain MAP >65, hgb>7. -Hold Losartan Assessment & Plan (01/07/2025 7:00 AM CDT): CR increased to 2.22, vanc level 39. -Nephro consulted -LR IVMF 100ml/hr -BID Na check -Monitor Na in setting of chronic mild-moderate hyponatremia -Optimize renal perfusion, maintain MAP >65, hgb>7. -Hold Losartan Assessment & Plan (01/06/2025 3:43 PM CDT): CR increased to 2.22, vanc level 39. -Nephro consulted -LR IVMF 100ml/hr -BID Na check -Monitor Na in setting of chronic mild-moderate hyponatremia -Optimize renal perfusion, maintain MAP >65, hgb>7. -Hold Losartan Pyelonephritis 01/06/2025 01/14/2025 Assessment & Plan (01/14/2025 10:44 AM CDT): Renal US showed findings suggestive of pyelonephritis secondary to UTI UA 01/06 1+ protein, 6-10 WBC, negative LE and nitrites, trace bacteria. Plan: -Continue ABX -CTM CBC, vitals -F/u urine culture. Assessment & Plan (01/14/2025 6:47 AM CDT): Renal US showed findings suggestive of pyelonephritis secondary to UTI UA 01/06 1+ protein, 6-10 WBC, negative LE and nitrites, trace bacteria. Plan: -Continue ABX -CTM CBC, vitals -F/u urine culture. Assessment & Plan (01/13/2025 6:50 AM CDT): Renal US showed findings suggestive of pyelonephritis secondary to UTI UA 01/06 1+ protein, 6-10 WBC, negative LE and nitrites, trace bacteria. Plan: -Continue ABX -CTM CBC, vitals -F/u urine culture. Assessment & Plan (01/12/2025 9:38 AM CDT): Renal US showed findings suggestive of pyelonephritis secondary to UTI UA 01/06 1+ protein, 6-10 WBC, negative LE and nitrites, trace bacteria. Plan: -Continue ABX -CTM CBC, vitals -F/u urine culture. Assessment & Plan (01/12/2025 7:08 AM CDT): Renal US showed findings suggestive of pyelonephritis secondary to UTI UA 9/25 1+ protein, 6-10 WBC, negative LE and nitrites, trace bacteria. Plan: -Continue ABX -CTM CBC, vitals -F/u urine culture. Assessment & Plan (01/11/2025 8:17 AM CDT): Renal US showed findings suggestive of pyelonephritis secondary to UTI UA 9/25 1+ protein, 6-10 WBC, negative LE and nitrites, trace bacteria. Plan: -Continue ABX -CTM CBC, vitals -F/u urine culture. Assessment & Plan (01/11/2025 6:48 AM CDT): Renal US showed findings suggestive of pyelonephritis secondary to UTI UA 9/25 1+ protein, 6-10 WBC, negative LE and nitrites, trace bacteria. Plan: -Continue ABX -CTM CBC, vitals -F/u urine culture. Assessment & Plan (01/10/2025 6:47 AM CDT): Renal US showed findings suggestive of pyelonephritis secondary to UTI UA 9/25 1+ protein, 6-10 WBC, negative LE and nitrites, trace bacteria. Plan: -Continue ABX -CTM CBC, vitals -F/u urine culture. Assessment & Plan (01/09/2025 6:44 AM CDT): Renal US showed findings suggestive of pyelonephritis secondary to UTI UA 9/25 1+ protein, 6-10 WBC, negative LE and nitrites, trace bacteria. Plan: -Continue ABX -CTM CBC, vitals -F/u urine culture. Assessment & Plan (01/08/2025 7:58 AM CDT): Renal US showed findings suggestive of pyelonephritis secondary to UTI UA 9/25 1+ protein, 6-10 WBC, negative LE and nitrites, trace bacteria. Plan: -Continue ABX -CTM CBC, vitals -F/u urine culture. Assessment & Plan (01/07/2025 11:18 AM CDT): Renal US showed findings suggestive of pyelonephritis secondary to UTI UA 01/06 1+ protein, 6-10 WBC, negative LE and nitrites, trace bacteria. Plan: -Continue meropenem -CTM CBC, vitals -F/u urine culture. Assessment & Plan (01/07/2025 7:00 AM CDT): Renal US showed findings suggestive of pyelonephritis secondary to UTI UA 01/06 1+ protein, 6-10 WBC, negative LE and nitrites, trace bacteria. Plan: -Continue meropenem -CTM CBC, vitals -F/u urine culture. Assessment & Plan (01/06/2025 3:43 PM CDT): Renal US showed findings suggestive of pyelonephritis secondary to UTI UA 01/06 1+ protein, 6-10 WBC, negative LE and nitrites, trace bacteria. Plan: -Continue meropenem -CTM CBC, vitals -F/u urine culture. Endocarditis, Osteomyelitis of vertebra, multiple sites in spine 01/03/2025 01/22/2025 Assessment & Plan (02/08/2025 11:49 AM CDT): Patient presented with multifocal embolic phenomena in multiple vascular territories in the brain, multifocal subdural empyemas, vertebral osteomyelitis. Neurosurgery assessed her on 01/02; stated the pachymeningeal enhancement on her MRI is unlikely to be meningitis and could represent low pressure from her [employer] shunt; unlikely to represent the cause of her AMS. 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 It is unclear whether her [employer] shunt is also involved in this process, but shunt cultures have been ngtd. Unfortunately her mental status has greatly declined during this admission; possibly 2/2 uremia vs new strokes, neurology consulted. AMS improved. Patient was started on antibiotics at OSH and has continued since admission on 12/31 at [facility]. She has continued to have embolic events despite being on broad antibiotic coverage. We are concerned that the vegetation is large and unstable enough that she will continue to embolize and antibiotics alone will not be sufficient. It was ultimately decided to proceed with surgical intervention. Diagnostically, we have pursued the following: - Blood cultures 12/28, 12/30, 01/03 all with no growth - Bone biopsy of areas of spinal osteo (path cw osteo, cultures with no growth) - Subdural fluid collections are not accessible to IR - [employer] shunt tap CSF cultures with no growth - 16S of CAL[employer] W[employer] shunt without DNA detected. -Crag, Bartonella, Q-fever, and blasto antibody negative. - histo UAg, histo Ab negative - Karius sequencing of blood - positive for streptococcus agalactiae -ESR: 12/28 34 -> 02/06 72 -CRP: 12/28 317.0 -> 02/06 41.2 Patient went to the OR 01/17 with CTS for MVR, JOSELYN ligation and CABG x2. Operative cultures obtained with NGTD and no organism seen. Karius positive for streptococcus agalactiae. 16s positive for streptococcus agalactiae. Given positive results, Daptomycin was stopped and ceftriaxone continued. Recommend 6 weeks of IV antibiotics (12/27 - 02/07). Patient will need repeat spinal imaging to assess the subdural empyemas towards the end of treatment and piror to stopping antibiotics. She underwent repeat MRI 02/03. Read c/f for worsening of infection, despite a prolonged course of IV antibiotics. Additionally, c/f needing brain MRI to better evaluate extension into the posterior fossa. Additionally, comments of instrumented fusion at C4-C7 and with epidural abscess at C2-C3. Discussed with primary team and recommend neurosurgery review imaging and evaluate patient. Neurosurgery noting some chronic progressive clinical signs of cervical myelopathy, but no indication for spine surgery. It was determined to pursue sampling with IR. IR reporting that there is little fluid in the C2-C3 and that it would be very high risk with low yield. Similar concerns for the thoracic spine. Ultimately, it was determined not to pursue intervention with IR. Given no plans for intervention, would recommend continuing antibiotics for 4 weeks with repeat imaging. Patient has continued on ceftriaxone. Noted to have persistent leukopenia and neutropenia. Patient has been on a prolonged course of ceftriaxone, likely the cause of these results. Recommend stopping ceftriaxone and starting Daptomycin 8mg/kg ABW IV Q24H. Discussed this with patient and primary team. Recommendations: -d/c ceftriaxone -start Daptomycin 8mg/kg ABW IV Q24H -While on the IV antibiotics, please obtain at least a weekly cbc with diff, weekly CMP, and weekly CK - Plan on 4 weeks of IV antibiotics with repeat imaging prior to stopping treatment. Please get imaging around 03/03. Do not stop antibiotics until seen by ID. -Thank you for allowing us to participate in the care of this patient. For questions or concerns, please do not hesitate to reach out. Assessment & Plan (02/07/2025 11:40 AM CDT): Patient presented with multifocal embolic phenomena in multiple vascular territories in the brain, multifocal subdural empyemas, vertebral osteomyelitis. Neurosurgery assessed her on 01/02; stated the pachymeningeal enhancement on her MRI is unlikely to be meningitis and could represent low pressure from her [employer] W[employer] T[employer]ER shunt; unlikely to represent the cause of her AMS. 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 It is unclear whether her [employer] W[employer] TENDER shunt is also involved in this process, but shunt cultures have been ngtd. Unfortunately her mental status has greatly declined during this admission; possibly 2/2 uremia vs new strokes, neurology consulted. AMS improved. Patient was started on antibiotics at OSH and has continued since admission on 12/31 at [facility]. She has continued to have embolic events despite being on broad antibiotic coverage. We are concerned that the vegetation is large and unstable enough that she will continue to embolize and antibiotics alone will not be sufficient. It was ultimately decided to proceed with surgical intervention. Diagnostically, we have pursued the following: - Blood cultures 12/28, 12/30, 01/03 all with no growth - Bone biopsy of areas of spinal osteo (path cw osteo, cultures with no growth) - Subdural fluid collections are not accessible to IR - [employer] shunt tap CSF cultures with no growth - 16S of [employer] shunt without DNA detected. -Crag, Bartonella, Q-fever, and blasto antibody negative. - histo UAg, histo Ab negative - Karius sequencing of blood - positive for streptococcus agalactiae Patient went to the OR 01/17 with CTS for MVR, JOSELYN ligation and CABG x2. Operative cultures obtained with NGTD and no organism seen. Karius positive for streptococcus agalactiae. 16s positive for streptococcus agalactiae. Given positive results, Daptomycin was stopped and ceftriaxone continued. Recommend 6 weeks of IV antibiotics (12/27 - 02/07). Patient will need repeat spinal imaging to assess the subdural empyemas towards the end of treatment and piror to stopping antibiotics. She underwent repeat MRI 02/03. Read c/f for worsening of infection, despite a prolonged course of IV antibiotics. Additionally, c/f needing brain MRI to better evaluate extension into the posterior fossa. Additionally, comments of instrumented fusion at C4-C7 and with epidural abscess at C2-C3. Discussed with primary team and recommend neurosurgery review imaging and evaluate patient. Neurosurgery noting some chronic progressive clinical signs of cervical myelopathy, but no indication for spine surgery. It was determined to pursue sampling with IR. Patient has continued on recommended antibiotics awaiting sampling with IR. Sampling would be beneficial for both diagnostic purposes and to decrease the burden of infection. Recommendations: -continue ceftriaxone 2g IV Q24H -While on the IV antibiotics, please obtain at least a weekly cbc with diff and weekly CMP - Agree with IR for both culture and to decrease the burden of disease. -Thank you for allowing us to participate in the care of this patient. For questions or concerns, please do not hesitate to reach out. Assessment & Plan (02/04/2025 12:08 PM CDT): Patient presented with multifocal embolic phenomena in multiple vascular territories in the brain, multifocal subdural empyemas, vertebral osteomyelitis. Neurosurgery assessed her on 01/02; stated the pachymeningeal enhancement on her MRI is unlikely to be meningitis and could represent low pressure from her [employer] shunt; unlikely to represent the cause of her AMS. 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 It is unclear whether her [employer] shunt is also involved in this process, but shunt cultures have been ngtd. Unfortunately her mental status has greatly declined during this admission; possibly 2/2 uremia vs new strokes, neurology consulted. AMS improved. Patient was started on antibiotics at OSH and has continued since admission on 12/31 at [facility]. She has continued to have embolic events despite being on broad antibiotic coverage. We are concerned that the vegetation is large and unstable enough that she will continue to embolize and antibiotics alone will not be sufficient. It was ultimately decided to proceed with surgical intervention. Diagnostically, we have pursued the following: - Blood cultures 12/28, 12/30, 01/03 all with no growth - Bone biopsy of areas of spinal osteo (path cw osteo, cultures with no growth) - Subdural fluid collections are not accessible to IR - [employer] shunt tap CSF cultures with no growth - 16S of [employer] shunt without DNA detected. -Crag, Bartonella, Q-fever, and blasto antibody negative. - histo UAg, histo Ab negative - Karius sequencing of blood - positive for streptococcus agalactiae Patient went to the OR 01/17 with CTS for MVR, JOSELYN ligation and CABG x2. Operative cultures obtained with NGTD and no organism seen. Karius positive for streptococcus agalactiae. 16s positive for streptococcus agalactiae. Given positive results, Daptomycin was stopped and ceftriaxone continued. Recommend 6 weeks of IV antibiotics (12/27 - 02/07). Patient will need repeat spinal imaging to assess the subdural empyemas towards the end of treatment and piror to stopping antibiotics. She underwent repeat MRI yesterday. Patient was seen and is anxious to leave. Reports on going neck and back pain, but is overall doing well. When seeing the patient, discussed plans pending imaging results. If imaging is substantially improving/resolved, would complete antibiotic course as planned. If stable but with residual abscess, would transition to PO antibiotics and obtain repeat imaging in 4 weeks with out patient ID follow up. If imaging not improved at all or worsening, would have surgery review, given she has been on a prolonged treatment course of antibiotics. Patient in agreement with plans. MRI with read c/f for worsening of infection, despite a prolonged course of IV antibiotics. Additionally, c/f needing brain MRI to better evaluate extension into the posterior fossa. Additionally, comments of instrumented fusion at C4-C7 and with epidural abscess at C2-C3. Discussed with primary team and recommend neurosurgery review imaging and evaluate patient. Recommendations: -continue ceftriaxone 2g IV Q24H -While on the IV antibiotics, please obtain at least a weekly cbc with diff and weekly CMP - Please touch base with neurosurgery given imaging findings and patient being on a prolonged, near 6 weeks, of IV antibiotics -Thank you for allowing us to participate in the care of this patient. For questions or concerns, please do not hesitate to reach out. Assessment & Plan (02/01/2025 11:31 AM CDT): Patient presented with multifocal embolic phenomena in multiple vascular territories in the brain, multifocal subdural empyemas, vertebral osteomyelitis. Neurosurgery assessed her on 01/02; stated the pachymeningeal enhancement on her MRI is unlikely to be meningitis and could represent low pressure from her [employer] shunt; unlikely to represent the cause of her AMS. 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 It is unclear whether her [employer] shunt is also involved in this process, but shunt cultures have been ngtd. Unfortunately her mental status has greatly declined during this admission; possibly 2/2 uremia vs new strokes, neurology consulted. AMS improved. Patient was started on antibiotics at OSH and has continued since admission on 12/31 at [facility]. She has continued to have embolic events despite being on broad antibiotic coverage. We are concerned that the vegetation is large and unstable enough that she will continue to embolize and antibiotics alone will not be sufficient. It was ultimately decided to proceed with surgical intervention. Diagnostically, we have pursued the following: - Blood cultures 12/28, 12/30, 01/03 all with no growth - Bone biopsy of areas of spinal osteo (path cw osteo, cultures with no growth) - Subdural fluid collections are not accessible to IR - [employer] shunt tap CSF cultures with no growth - 16S of [employer] shunt without DNA detected. -Crag, Bartonella, Q-fever, and blasto antibody negative. - histo UAg, histo Ab negative - Karius sequencing of blood - positive for streptococcus agalactiae Patient went to the OR 01/17 with CTS for MVR, JOSELYN ligation and CABG x2. Operative cultures obtained with NGTD and no organism seen. Karius positive for streptococcus agalactiae. 16s positive for streptococcus agalactiae. Given positive results, Daptomycin was stopped and ceftriaxone continued. Recommend 6 weeks of IV antibiotics (12/27 - 02/07). Patient will need repeat spinal imaging to assess the subdural empyemas towards the end of treatment and piror to stopping antibiotics. Since last seen, patient has continued on recommended antibiotics. Hopeful to discharge to rehab in the next couple of days. Discussed with patient and daughter the need to make sure imaging is obtained and reviewed prior to stopping antibiotics. Discussed with primary team need to obtain repeat imaging prior to stopping antibiotics, and that patient has about a week left. Reviewed timing of repeat imaging with Dr. Tavares. Getting imaging today is too soon, but reasonable to obtain the imaging towards the end of the week if patient still admitted. Recommendations: -continue ceftriaxone 2g IV Q24H -While on the IV antibiotics, please obtain at least a weekly cbc with diff and weekly CMP - Recommend 6 weeks of antibiotics (12/27 - 02/07) -Patient will need repeat spinal imaging to assess the subdural empyemas towards the end of treatment, prior to stopping the antibiotics to assess for improvement. -Thank you for allowing us to participate in the care of this patient. For questions or concerns, please do not hesitate to reach out. Assessment & Plan (01/25/2025 1:26 PM CDT): Patient presented with multifocal embolic phenomena in multiple vascular territories in the brain, multifocal subdural empyemas, vertebral osteomyelitis. Neurosurgery assessed her on 01/02; stated the pachymeningeal enhancement on her MRI is unlikely to be meningitis and could represent low pressure from her [employer] shunt; unlikely to represent the cause of her AMS. 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 It is unclear whether her [employer] shunt is also involved in this process, but shunt cultures have been ngtd. Unfortunately her mental status has greatly declined during this admission; possibly 2/2 uremia vs new strokes, neurology consulted. AMS improved. Patient was started on antibiotics at OSH and has continued since admission on 12/31 at [facility]. She has continued to have embolic events despite being on broad antibiotic coverage. We are concerned that the vegetation is large and unstable enough that she will continue to embolize and antibiotics alone will not be sufficient. It was ultimately decided to proceed with surgical intervention. Diagnostically, we have pursued the following: - Blood cultures 12/28, 12/30, 01/03 all with no growth - Bone biopsy of areas of spinal osteo (path cw osteo, cultures with no growth) - Subdural fluid collections are not accessible to IR - [employer] shunt tap CSF cultures with no growth - 16S of [employer] shunt without DNA detected. -Crag, Bartonella, Q-fever, and blasto antibody negative. - histo UAg, histo Ab negative - Karius sequencing of blood - positive for streptococcus agalactiae Patient went to the OR 01/17 with CTS for MVR, JOSELYN ligation and CABG x2. Operative cultures obtained with NGTD and no organism seen. Coty positive for streptococcus agalactiae. Recommend continuing daptomycin and ceftriaxone to complete 6 weeks of IV antibiotics (12/27 - 02/07). Patient will need repeat spinal imaging to assess the subdural empyemas towards the end of treatment and piror to stopping antibiotics. Since last seen, patient has continued on recommended antibiotics. Labs stable, planning for acute rehab on discharge. Cardiology electrophysiology following. Patient with new onset a-fib, plans for therapeutic anticoagulation. 16s has resulted and found to be positive for streptococcus agalactiae. Recommendations: - d/c Daptomycin a -continue ceftriaxone 2g IV Q24H -While on the IV antibiotics, please obtain at least a weekly cbc with diff and weekly CMP - Recommend 6 weeks of antibiotics (12/27 - 02/07) -Patient will need repeat spinal imaging to assess the subdural empyemas towards the end of treatment, prior to stopping the antibiotics to assess for improvement. -Thank you for allowing us to participate in the care of this patient. For questions or concerns, please do not hesitate to reach out. Assessment & Plan (01/21/2025 12:31 PM CDT): Patient presented with multifocal embolic phenomena in multiple vascular territories in the brain, multifocal subdural empyemas, vertebral osteomyelitis. Neurosurgery assessed her on 01/02; stated the pachymeningeal enhancement on her MRI is unlikely to be meningitis and could represent low pressure from her [employer] shunt; unlikely to represent the cause of her AMS. 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 It is unclear whether her [employer] shunt is also involved in this process, but shunt cultures have been ngtd. Unfortunately her mental status has greatly declined during this admission; possibly 2/2 uremia vs new strokes, neurology consulted. AMS improved. Patient was started on antibiotics at OSH and has continued since admission on 12/31 at [facility]. She has continued to have embolic events despite being on broad antibiotic coverage. We are concerned that the vegetation is large and unstable enough that she will continue to embolize and antibiotics alone will not be sufficient. It was ultimately decided to proceed with surgical intervention. Diagnostically, we have pursued the following: - Blood cultures 12/28, 12/30, 01/03 all with no growth - Bone biopsy of areas of spinal osteo (path cw osteo, cultures with no growth) - Subdural fluid collections are not accessible to IR - [employer] shunt tap CSF cultures with no growth - 16S of [employer] shunt without DNA detected. -Crag, Bartonella, Q-fever, and blasto antibody negative. - histo UAg, histo Ab negative - Karius sequencing of blood - positive for streptococcus agalactiae Patient went to the OR 01/17 with CTS for MVR, JOSELYN ligation and CABG x2. Operative cultures obtained with NGTD and no organism seen. 16s in progress. Karius positive for streptococcus agalactiae. Recommend stopping doxycycline and continuing daptomycin and ceftriaxone to complete 6 weeks of IV antibiotics (12/27 - 02/07). Reviewed ID involvement in care with patient. Her mental status has improved today compared to yesterday. Was unable to remember which facility she was at but knew it was a medical facility but was otherwise able to answer all other questions. Called daughter, Ora, and updated on ID findings and plan going forward. Questions answered as needed. Recommendations: - d/c doxycycline - Continue Daptomycin and ceftriaxone -While on the IV antibiotics, please obtain at least a weekly cbc with diff, weekly CMP, and weekly CK - Recommend 6 weeks of antibiotics (12/27 - 02/07) -Patient will need repeat spinal imaging to assess the subdural empyemas towards the end of treatment, prior to stopping the antibiotics to assess for improvement. -Will follow up on 16s -Thank you for allowing us to participate in the care of this patient. For questions or concerns, please do not hesitate to reach out. -Please place ambulatory referral for OPAT Assessment & Plan (01/20/2025 11:14 AM CDT): Patient presented with multifocal embolic phenomena in multiple vascular territories in the brain, multifocal subdural empyemas, vertebral osteomyelitis. Neurosurgery assessed her on 01/02; stated the pachymeningeal enhancement on her MRI is unlikely to be meningitis and could represent low pressure from her [employer] shunt; unlikely to represent the cause of her AMS. 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 It is unclear whether her [employer] shunt is also involved in this process, but shunt cultures have been ngtd. Unfortunately her mental status has greatly declined during this admission; possibly 2/2 uremia vs new strokes, neurology consulted. AMS improved. Patient was started on antibiotics at OSH and has continued since admission on 12/31 at [facility]. She has continued to have embolic events despite being on broad antibiotic coverage. We are concerned that the vegetation is large and unstable enough that she will continue to embolize and antibiotics alone will not be sufficient. It was ultimately decided to proceed with surgical intervention. Diagnostically, we have pursued the following: - Blood cultures 12/28, 12/30, 01/03 all with no growth - Bone biopsy of areas of spinal osteo (path cw osteo, cultures with no growth) - Subdural fluid collections are not accessible to IR - [employer] shunt tap CSF cultures with no growth - 16S of [employer] shunt without DNA detected. -Crag, Bartonella, Q-fever, and blasto antibody negative. - histo UAg, histo Ab negative - Karius sequencing of blood - positive for streptococcus agalactiae Patient went to the OR yesterday with CTS for MVR, patch repair of abscess cavity, JOSELYN ligation and CABG x2. Operative cultures obtained with NGTD and no organism seen. 16s in progress. Karius positive for streptococcus agalactiae. On assessment, patient able to answer simple questions. Asking about a stool softener, then reporting she doesn't need one. When specifically asked, denies n/v/d, itching or rash. Family not at bedside to provide updates. Recommendations: - Continue Daptomycin, ceftriaxone, doxycycline -While on the IV antibiotics, please obtain at least a weekly cbc with diff, weekly CMP, and weekly CK - Follow up pending results -Thank you for allowing us to participate in the care of this patient. For questions or concerns, please do not hesitate to reach out. Assessment & Plan (01/18/2025 1:50 PM CDT): Patient presented with multifocal embolic phenomena in multiple vascular territories in the brain, multifocal subdural empyemas, vertebral osteomyelitis. Neurosurgery assessed her on 01/02; stated the pachymeningeal enhancement on her MRI is unlikely to be meningitis and could represent low pressure from her [employer] shunt; unlikely to represent the cause of her AMS. 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 It is unclear whether her [employer] shunt is also involved in this process, but shunt cultures have been ngtd. Unfortunately her mental status has greatly declined during this admission; possibly 2/2 uremia vs new strokes, neurology consulted. AMS improved. Patient was started on antibiotics at OSH and has continued since admission on 12/31 at [facility]. She has continued to have embolic events despite being on broad antibiotic coverage. We are concerned that the vegetation is large and unstable enough that she will continue to embolize and antibiotics alone will not be sufficient. It was ultimately decided to proceed with surgical intervention. Diagnostically, we have pursued the following: - Blood cultures 12/28, 12/30, 01/03 all with no growth - Bone biopsy of areas of spinal osteo (path cw osteo, cultures with no growth) - Subdural fluid collections are not accessible to IR - [employer] shunt tap CSF cultures with no growth - 16S of [employer] shunt without DNA detected. -Crag, Bartonella, Q-fever, and blasto antibody negative. - histo UAg, histo Ab negative - Karius sequencing of blood - positive for streptococcus agalactiae Patient went to the OR yesterday with CTS for MVR, patch repair of abscess cavity, JOSELYN ligation and CABG x2. Operative cultures obtained with NGTD and no organism seen. Linezolid changed to daptomycin and ceftriaxone changed to Q24H as recommended. At the time of seeing patient and discussing with family, Karius results negative. Results have since come back and positive for streptococcus agalactiae. Patient on antibiotics that will appropriately treat this organism. Will follow up on heart valve results. Recommendations: - Continue Daptomycin, ceftriaxone, doxycycline -While on the IV antibiotics, please obtain at least a weekly cbc with diff, weekly CMP, and weekly CK - Follow up pending results -Thank you for allowing us to participate in the care of this patient. For questions or concerns, please do not hesitate to reach out. Assessment & Plan (01/17/2025 7:27 AM CDT): Hx NPH s/p shunt 2021, MRI conditional. Developed altered mental status characterized by confusion and lethargy at OSH. On chart review, appears to be fully functional at baseline. Had acute on chronic hyponatremia to 122, baseline upper 120s. Lytes otherwise unremarkable and euglycemic. TSH 2.75, fT4 1.44. ESR 50, CRP 317->193, ferritin 806. Noninfectious UA at OSH. EEG with diffuse slowing, no focal slowing or epileptiform changes. Ehrlichia, lyme, and anaplasma negative and s/p doxycycline 12/29-12/31. 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 AMS likely multifactorial iso hyponatremia, new infarcts, and potential infection PLAN: - Continue Ceftriaxone 2gm Q12, Linezolid 600mg Q12, doxy 100mg Q12 - Neurology consulted - aspirin 81 mg qD (will resume after MSK on 01/04) - crestor 40 mg qD - Neurosurgery consulted, so surgical indication at this time - Delirium precautions, avoid sedating medications Assessment & Plan (01/16/2025 8:15 AM CDT): Hx NPH s/p shunt 2021, MRI conditional. Developed altered mental status characterized by confusion and lethargy at OSH. On chart review, appears to be fully functional at baseline. Had acute on chronic hyponatremia to 122, baseline upper 120s. Lytes otherwise unremarkable and euglycemic. TSH 2.75, fT4 1.44. ESR 50, CRP 317->193, ferritin 806. Noninfectious UA at OSH. EEG with diffuse slowing, no focal slowing or epileptiform changes. Ehrlichia, lyme, and anaplasma negative and s/p doxycycline 12/29-12/31. 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 AMS likely multifactorial iso hyponatremia, new infarcts, and potential infection PLAN: - Continue Ceftriaxone 2gm Q12, Linezolid 600mg Q12, doxy 100mg Q12 - Neurology consulted - aspirin 81 mg qD (will resume after MSK on 01/04) - crestor 40 mg qD - stroke follow up; SMART consult - BP goal: gradual normotension - Neurosurgery consulted, so surgical indication at this time - Delirium precautions, avoid sedating medications Assessment & Plan (01/15/2025 8:02 AM CDT): Hx NPH s/p shunt 2021, MRI conditional. Developed altered mental status characterized by confusion and lethargy at OSH. On chart review, appears to be fully functional at baseline. Had acute on chronic hyponatremia to 122, baseline upper 120s. Lytes otherwise unremarkable and euglycemic. TSH 2.75, fT4 1.44. ESR 50, CRP 317->193, ferritin 806. Noninfectious UA at OSH. EEG with diffuse slowing, no focal slowing or epileptiform changes. Ehrlichia, lyme, and anaplasma negative and s/p doxycycline 12/29-12/31. 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 AMS likely multifactorial iso hyponatremia, new infarcts, and potential infection PLAN: - Continue Ceftriaxone 2gm Q12, Linezolid 600mg Q12, doxy 100mg Q12 - Neurology consulted - aspirin 81 mg qD (will resume after MSK on 01/04) - crestor 40 mg qD - stroke follow up; SMART consult - BP goal: gradual normotension - Neurosurgery consulted, so surgical indication at this time - Delirium precautions, avoid sedating medications Assessment & Plan (01/14/2025 10:44 AM CDT): Hx NPH s/p shunt 2021, MRI conditional. Developed altered mental status characterized by confusion and lethargy at OSH. On chart review, appears to be fully functional at baseline. Had acute on chronic hyponatremia to 122, baseline upper 120s. Lytes otherwise unremarkable and euglycemic. TSH 2.75, fT4 1.44. ESR 50, CRP 317->193, ferritin 806. Noninfectious UA at OSH. EEG with diffuse slowing, no focal slowing or epileptiform changes. Ehrlichia, lyme, and anaplasma negative and s/p doxycycline 12/29-12/31. 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 AMS likely multifactorial iso hyponatremia, new infarcts, and potential infection PLAN: - Continue Ceftriaxone 2gm Q12, Linezolid 600mg Q12, doxy 100mg Q12 - Neurology consulted - obtain CTA head and neck - aspirin 81 mg qD (will resume after MSK on 01/04) - crestor 40 mg qD - stroke follow up; SMART consult - BP goal: gradual normotension - Neurosurgery consulted, so surgical indication at this time - Delirium precautions, avoid sedating medications Assessment & Plan (01/14/2025 6:47 AM CDT): Hx NPH s/p shunt 2021, MRI conditional. Developed altered mental status characterized by confusion and lethargy at OSH. On chart review, appears to be fully functional at baseline. Had acute on chronic hyponatremia to 122, baseline upper 120s. Lytes otherwise unremarkable and euglycemic. TSH 2.75, fT4 1.44. ESR 50, CRP 317->193, ferritin 806. Noninfectious UA at OSH. EEG with diffuse slowing, no focal slowing or epileptiform changes. Ehrlichia, lyme, and anaplasma negative and s/p doxycycline 12/29-12/31. 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 AMS likely multifactorial iso hyponatremia, new infarcts, and potential infection PLAN: - Continue Ceftriaxone 2gm Q12, Linezolid 600mg Q12, doxy 100mg Q12 - Neurology consulted - obtain CTA head and neck - aspirin 81 mg qD (will resume after MSK on 01/04) - crestor 40 mg qD - stroke follow up; SMART consult - BP goal: gradual normotension - Neurosurgery consulted, so surgical indication at this time - Delirium precautions, avoid sedating medications Assessment & Plan (01/13/2025 1:39 PM CDT): Hx NPH s/p shunt 2021, MRI conditional. Developed altered mental status characterized by confusion and lethargy at OSH. On chart review, appears to be fully functional at baseline. Had acute on chronic hyponatremia to 122, baseline upper 120s. Lytes otherwise unremarkable and euglycemic. TSH 2.75, fT4 1.44. ESR 50, CRP 317->193, ferritin 806. Noninfectious UA at OSH. EEG with diffuse slowing, no focal slowing or epileptiform changes. Ehrlichia, lyme, and anaplasma negative and s/p doxycycline 12/29-12/31. 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 AMS likely multifactorial iso hyponatremia, new infarcts, and potential infection PLAN: - Continue Ceftriaxone 2gm Q12, Linezolid 600mg Q12, doxy 100mg Q12 - Neurology consulted - obtain CTA head and neck - aspirin 81 mg qD (will resume after MSK on 01/04) - crestor 40 mg qD - stroke follow up; SMART consult - BP goal: gradual normotension - Neurosurgery consulted, so surgical indication at this time - Delirium precautions, avoid sedating medications Assessment & Plan (01/12/2025 1:17 PM CDT): Patient presented with multifocal embolic phenomena in multiple vascular territories in the brain, multifocal subdural empyemas, vertebral osteomyelitis. Neurosurgery assessed her on 01/02; stated the pachymeningeal enhancement on her MRI is unlikely to be meningitis and could represent low pressure from her [employer] shunt; unlikely to represent the cause of her AMS. 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 It is unclear whether her [employer] shunt is also involved in this process, but shunt cultures have been ngtd. Unfortunately her mental status has greatly declined during this admission; possibly 2/2 uremia vs new strokes, neurology consulted. Diagnostically, we have pursued the following: - Blood cultures 12/28, 12/30, 01/03 all with no growth - Bone biopsy of areas of spinal osteo (path cw osteo, cultures with no growth) - Subdural fluid collections are not accessible to IR - [employer] shunt tap CSF cultures with no growth - 16S of [employer] shunt without DNA detected. -Crag, Bartonella, Q-fever, and blasto antibody negative. - histo UAg, histo Ab pending - Karius sequencing of blood pending Mental status stable. Patient sleeping on assessment today, appears comfortable. Plan for [facility] today on review. Brief CTS note comments on holding off on surgical intervention 2/2 subdural empyema, minimal valve dysfunction and c/f possible endocarditis recurrence of new valve in light of of empyema. Patient was started on antibiotics at OSH and has continued since admission on 12/31 at [facility]. She has continued to have embolic events despite being on broad antibiotic coverage. We are concerned that the vegetation is large and unstable enough that she will continue to embolize and antibiotics alone will not be sufficient. ID attending has reached out to CTS attending to further discuss. Updated patient's daughter. Of note, daughter is still wanting to discuss with CTS Recommendations: - Continue linezolid, ceftriaxone, doxycycline -While on the IV antibiotics, please obtain at least a weekly cbc with diff and weekly CMP. - Follow up pending results - Appreciate CTS recs. If plan is for surgical intervention, please obtain operative cultures and 16s. - Planning on 2 weeks of COMPOSITION MOLDER penetrating coverage in the event she does have meningitis if possible - Will need 6 weeks of antibiotics for treatment of endocarditis Assessment & Plan (01/12/2025 9:38 AM CDT): - Continue antibiotics - Follow up ID recs Assessment & Plan (01/12/2025 11:13 AM CDT): Hx NPH s/p shunt 2021, MRI conditional. Developed altered mental status characterized by confusion and lethargy at OSH. On chart review, appears to be fully functional at baseline. Had acute on chronic hyponatremia to 122, baseline upper 120s. Lytes otherwise unremarkable and euglycemic. TSH 2.75, fT4 1.44. ESR 50, CRP 317->193, ferritin 806. Noninfectious UA at OSH. EEG with diffuse slowing, no focal slowing or epileptiform changes. Ehrlichia, lyme, and anaplasma negative and s/p doxycycline 12/29-12/31. 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 AMS likely multifactorial iso hyponatremia, new infarcts, and potential infection 01/11 15:30 patient became altered, AOx0, confused and intermittently unable to follow directions. Neuro exam concerning for weakness R>L and AMS. Stroke workup negative, head CT negative. BG, Na wnl. Patient's symptoms improved. PLAN: - Continue Ceftriaxone 2gm Q12, Linezolid 600mg Q12, doxy 100mg Q12 - Neurology consulted - aspirin 81 mg qD (will resume after MSK on 01/04) - crestor 40 mg qD - stroke follow up; SMART consult - BP goal: gradual normotension - Neurosurgery consulted, no surgical indication at this time - Delirium precautions, avoid sedating medications Assessment & Plan (01/11/2025 12:43 PM CDT): Patient presented with multifocal embolic phenomena in multiple vascular territories in the brain, multifocal subdural empyemas, vertebral osteomyelitis. Neurosurgery assessed her on 01/02; stated the pachymeningeal enhancement on her MRI is unlikely to be meningitis and could represent low pressure from her [employer] shunt; unlikely to represent the cause of her AMS. 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 It is unclear whether her [employer] shunt is also involved in this process, but shunt cultures have been ngtd. Unfortunately her mental status has greatly declined during this admission; possibly 2/2 uremia vs new strokes, neurology consulted. Diagnostically, we have pursued the following: - Blood cultures 12/28, 12/30, 01/03 all with no growth - Bone biopsy of areas of spinal osteo (path cw osteo, cultures with no growth) - Subdural fluid collections are not accessible to IR - [employer] shunt tap CSF cultures with no growth - 16S of [employer] shunt pending -Crag, Bartonella, Q-fever, and blasto antibody negative. - histo UAg, histo Ab pending - Karius sequencing of blood pending Mental status stable. Patient sleeping on assessment today, but woke up and answered simple questions. Reviewed ID involvement in care with patient and daughter. Discussed antibiotic plans and support for CTS intervention. Panorex obtained yesterday and negative. On chart review, patient scheduled for 01/14 for OR. Please send cultures. Patient and daughter with many surgical questions and requesting to speak to CTS. Recommendations: - Continue linezolid, ceftriaxone, doxycycline -While on the IV antibiotics, please obtain at least a weekly cbc with diff and weekly CMP. - Follow up pending results - Appreciate CTS recs. If plan is for surgical intervention, please obtain operative cultures and 16s. - Planning on 2 weeks of COMPOSITION MOLDER penetrating coverage in the event she does have meningitis if possible - Will need 6 weeks of antibiotics for treatment of endocarditis Assessment & Plan (01/11/2025 8:17 AM CDT): - Continue antibiotics - Follow up ID recs Assessment & Plan (01/11/2025 6:48 AM CDT): - Continue antibiotics - Follow up ID recs Assessment & Plan (01/10/2025 11:23 AM CDT): Patient presented with multifocal embolic phenomena in multiple vascular territories in the brain, multifocal subdural empyemas, vertebral osteomyelitis. Neurosurgery assessed her on 01/02; stated the pachymeningeal enhancement on her MRI is unlikely to be meningitis and could represent low pressure from her [employer] shunt; unlikely to represent the cause of her AMS. 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 It is unclear whether her [employer] shunt is also involved in this process, but shunt cultures have been ngtd. Unfortunately her mental status has greatly declined during this admission; possibly 2/2 uremia vs new strokes, neurology consulted. Crag negative. Diagnostically, we have pursued the following: - Blood cultures 12/28, 12/30, 01/03 all with no growth - Bone biopsy of areas of spinal osteo (path cw osteo, cultures with no growth) - Subdural fluid collections are not accessible to IR - [employer] shunt tap CSF cultures with no growth - 16S of [employer] shunt pending - Culture-negative endocarditis non-invasive workup pending (histo UAg, bartonella Ab, Q fever Ab, histo/blasto Ab) - Karius sequencing of blood pending Mental status has significantly improved. Reviewed ID involvement in care with patient and daughter. Discussed antibiotic plans and support for CTS intervention. Patient tolerating antibiotics well, questions answered as able. Patient reports her last dental cleaning was in June. Denies any dental pain. Does reports she has not been very good about taking care of her teeth starting in October. Recommend obtaining Panorex to assess for possible source. Recommendations: - Continue linezolid, ceftriaxone, doxycycline -While on the IV antibiotics, please obtain at least a weekly cbc with diff and weekly CMP. - Follow up pending Bartonella, Q-fever, histo antibody and urine histo antigen, blasto antibody, and a crypto antigen - Follow up pending CSF 16S and Karius blood test -Please obtain panorex - Appreciate CTS recs. If plan is for surgical intervention, please obtain operative cultures and 16s. - Planning on 2 weeks of COMPOSITION MOLDER penetrating coverage in the event she does have meningitis - Will need 6 weeks of antibiotics for treatment of endocarditis Assessment & Plan (01/10/2025 6:47 AM CDT): - Continue antibiotics - Follow up ID recs Assessment & Plan (01/09/2025 6:44 AM CDT): - Continue antibiotics - Follow up ID recs Assessment & Plan (01/08/2025 5:15 PM CDT): Patient presented with multifocal embolic phenomena in multiple vascular territories in the brain, multifocal subdural empyemas, vertebral osteomyelitis. 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 It is unclear whether her [employer] shunt is also involved in this process, but shunt cultures have been ngtd. Unfortunately her mental status has greatly declined during this admission; possibly 2/2 uremia vs new strokes, neurology consulted. Diagnostically, we have pursued the following: - Blood cultures 12/28, 12/30, 01/03 all with no growth - Bone biopsy of areas of spinal osteo (path cw osteo, cultures with no growth) - Subdural fluid collections are not accessible to IR - [employer] shunt tap CSF cultures with no growth - 16S of CAL[employer] shunt pending - Culture-negative endocarditis non-invasive workup pending (histo UAg, bartonella Ab, Q fever Ab, histo/blasto Ab, Crag) - Will send Karius sequencing of blood Therapeutically: - Ongoing CT surgery assessment to determine surgical candidacy. In addition to addressing the vegetation itself, this would also enable us to obtain cardiac tissue for 16S which would likely be the highest diagnostic yield test in her case. However, repeat MRI is in progress to stratify neurological risk of anticoagulation for this surgery, she may be too high risk. - Continue broad-spectrum COMPOSITION MOLDER-penetrating antibiotics (linezolid 600mg BID + ceftriaxone 2g BID) + doxycycline 100mg BID for atypical coverage Neurosurgery assessed her on 01/02; stated the pachymeningeal enhancement on her MRI is unlikely to be meningitis and could represent low pressure from her [employer] shunt; unlikely to represent the cause of her AMS. Imaging has been concerning for discitis-osteomyelitis of T1-T2 and T12-L1 as well as subdural empyemas of the C-spine and T-spine. Recommendations: - Continue linezolid, ceftriaxone, doxycycline -While on the IV antibiotics, please obtain at least a weekly cbc with diff and weekly CMP. - Follow up pending Bartonella, Q-fever, histo antibody and urine histo antigen, blasto antibody, and a crypto antigen - Follow up pending CSF 16S - Obtain sample for Karius blood test tomorrow am Assessment & Plan (01/08/2025 7:02 AM CDT): - Continue antibiotics - Follow up ID recs Assessment & Plan (01/07/2025 2:07 PM CDT): Neurosurgery assessed her on 01/02; stated the pachymeningeal enhancement on her MRI is unlikely to be meningitis and could represent low pressure from her [employer] shunt; unlikely to represent the cause of her AMS. Imaging has been concerning for discitis-osteomyelitis of T1-T2 and T12-L1 as well as subdural empyemas of the C-spine and T-spine. Patient's presentation of multifocal embolic phenomena in multiple vascular territories, multifocal subdural empyemas are highly concerning for an occult bacteremia that seeded multiple organ spaces, possibly in association with endocarditis. This is not consistent with a viral meningitis, acyclovir stopped. TTE on 12/28 comments on pacemaker noted, CXR without pacer. She underwent bone bx 01/04, cx NGTD. Have reached out to micro regarding 16s, no remaining tissue to send. Shunt sampling obtained yesterday, nucs 5, Glu 54, pro 100, culture sent and NGTD. Plans for JANELLE today. MRI brain pending. Primary team discussed with IR ,and they said that based off the size and anterior location, they wont be able to drain anything from the subdural. Creatinine improved to 2.08, random vancomycin level 25.5. AMS has persisted. Shunt sampling occurred after several days of broad antibiotic coverage. Would favor continuing COMPOSITION MOLDER penetrating antibiotics while workup on going. However, would favor linezolid 600mg Q12H over vancomycin and ceftriaxone 2g IV Q12H over meropenem. Additionally, patient previously on doxycycline. Would recommend resuming doxycycline while workup in progress. Recommendations: - Please obtain JANELLE to better evaluate for endocarditis. Currently scheduled for today - d/c vancomycin. Start Linezolid 600mg Q12H -d/c Meropenem. Start ceftriaxone 2g IV Q12H -Doxycycline 200mg x1 followed by doxycycline 100mg Q12H therafter -While on the IV antibiotics, please obtain at least a weekly cbc with diff and weekly CMP. - Please send Bartonella, Q-fever, histo antibody and urine histo antigen, blasto antibody, and a crypto antigen -Will reach out to micro regarding additional testing - will follow up on pending results Assessment & Plan (01/07/2025 11:18 AM CDT): - Continue antibiotics - Follow up ID recs Assessment & Plan (01/07/2025 7:00 AM CDT): - Continue antibiotics - Follow up ID recs Assessment & Plan (01/06/2025 11:29 AM CDT): Neurosurgery assessed her on 01/02; stated the pachymeningeal enhancement on her MRI is unlikely to be meningitis and could represent low pressure from her [employer] shunt; unlikely to represent the cause of her AMS. Imaging has been concerning for discitis-osteomyelitis of T1-T2 and T12-L1 as well as subdural empyemas of the C-spine and T-spine. Patient's presentation of multifocal embolic phenomena in multiple vascular territories, multifocal subdural empyemas are highly concerning for an occult bacteremia that seeded multiple organ spaces, possibly in association with endocarditis. This is not consistent with a viral meningitis process and acyclovir can be stopped at this time. Would recommend JANELLE particularly in the setting of her pacemaker as any evidence of endocarditis would require PPM removal. She underwent bone bx 01/04, cx NGTD. Have reached out to micro regarding 16s. Since last seen, patient with significant ANDREIA. Discussed with primary team to hold vancomycin and obtain a random level. Result back with ~7H level of 39.0. recommend to hold vancomycin and repeat 24H level. Morris catheter placed with plans for RBUS. Patient with worsening mental status. Ceftriaxone adjusted to meropenem, MRI pending. Awaiting neuro input regarding shunt sampling. Recommendations: - Please obtain JANELLE to better evaluate for pacemaker-associated endocarditis. Currently scheduled tomorrow - Continue to hold vancomycin. Please repeat a 24H level -Continue meropenem 1g IV Q12H (for CrCL 10-24) -While on the IV antibiotics, please obtain at least a weekly cbc with diff and weekly CMP. - Surgical/IR drainage of subdural empyemas of C-spine and T/L spine; send for bacterial, fungal and AFB cultures - will follow up on spine culture bx - Have reached out to micro regarding 16s - Follow up blood cultures 01/03 - Given LP not feasible, would discuss with neurosurgery whether it is possible to sample directly from [employer] shunt for cultures. Without sampling, I cannot say the shunt is not infected, which would affect management going forward. Assessment & Plan (01/06/2025 9:01 AM CDT): - Continue antibiotics - Follow up ID recs Assessment & Plan (01/06/2025 6:54 AM CDT): - Continue antibiotics - Follow up ID recs Assessment & Plan (01/05/2025 1:14 PM CDT): Neurosurgery assessed her on 01/02; stated the pachymeningeal enhancement on her MRI is unlikely to be meningitis and could represent low pressure from her [employer] shunt; unlikely to represent the cause of her AMS. Imaging has been concerning for discitis-osteomyelitis of T1-T2 and T12-L1 as well as subdural empyemas of the C-spine and T-spine. Patient's presentation of multifocal embolic phenomena in multiple vascular territories, multifocal subdural empyemas are highly concerning for an occult bacteremia that seeded multiple organ spaces, possibly in association with endocarditis. This is not consistent with a viral meningitis process and acyclovir can be stopped at this time. Would recommend JANELLE particularly in the setting of her pacemaker as any evidence of endocarditis would require PPM removal. She underwent bone bx yesterday, cx NGTD. On assessment, patient even more sleepy with some intermittent garbled speech today. Denies fevers/chills, vomiting, or new foci of pain. Reports pain all over today. Acyclovir and ampicillin discontinued, vancomycin appropriately adjusted. Optho consulted for patient seeing things and no c/f intraocular infection.JANELLE scheduled 01/07. Recommendations: - Please obtain JANELLE to better evaluate for pacemaker-associated endocarditis - Continue vancomycin and cefepime -While on the IV antibiotics, please obtain at least a weekly cbc with diff, weekly LFTs, TWICE weekly BMP and vancomycin trough prior to the 4th dose (goal 15-20) - Surgical/IR drainage of subdural empyemas of C-spine and T/L spine; send for bacterial, fungal and AFB cultures - will follow up on spine culture bx - Will likely recommend 16S sequencing of tissue if no growth - Follow up blood cultures 01/03 - Given LP not feasible, would discuss with neurosurgery whether it is possible to sample directly from [employer] shunt for cultures. Without sampling, I cannot say the shunt is not infected, which would affect management going forward. 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 She presented with hyponatremia to 122, her baseline is upper 120s. Lytes otherwise unremarkable and euglycemic. TSH 2.75, fT4 1.44. ESR 50, CRP 317->193, ferritin 806. Noninfectious UA. EEG with diffuse slowing, no focal slowing or epileptiform changes. Ehrlichia, lyme, and anaplasma negative and s/p doxycycline 12/29-12/31. Brain MRI on 01/01 was remarkable for multiple punctate acute infarcts of the right internal capsule, right centrum semiovale bowel, left parietal white matter, and left cerebellar hemisphere involving multiple vascular territories, raising suspicion for an embolic source. Diffuse pachymeningeal thickening of the brain and cervical spine with cervical spine subdural hemorrhage extending from C2 to C3-C4 resulting in severe canal stenosis. MRI Spine thoracic and lumbar showed discitis and osteomyelitis at T1-T2 and T12-L1. Fluid filled subdural space possibly an empyema spinal infection. Initially were concerned for meningoencephalitic process and brain MRI revealed multifocal punctate infarcts. The infarcts are likely occurring within the prior 3-4 days (did not all occur on the day, varying ages). Given its multivascular territories, etiology may be a septic emboli from cardiac source. Multifocal infarcts are also likely contributing to her altered mental status, however AMS is likely multifactorial in the setting of hyponatremia, new infarcts, and possible meningitis/infection spread. Her WBCs are holding stable at 11.79. Blood culture has no growths as of date. PLAN: - Continue empirical meningitis treatment, per neurology and ID consults: - Current abx regimen: - Discontinue Acyclovir and Ampicillin - Continue Cefepime 2gIV q12h - Continue Vancomycin 15mg/kg IV q12h - Bone biopsy with [facility] IR yesterday -follow up cultures - JANELLE for suspected septic emboli tentatively scheduled for 01/07 - Neurology consulted - aspirin 81 mg - crestor 40 mg daily - Pt will need loop monitor on discharge pending JANELLE results - stroke follow up - BP goal: gradual normotension - Neurosurgery consulted: discussion of feasibility of [employer] shunt fluid sampling. - Delirium precautions, avoid sedating medications - Ophthalmology consulted for acute visual changes/floaters and evaluation for possible infectious spread to eyes, no intervention at this time. Assessment & Plan (01/04/2025 4:33 PM CDT): - Continue antibiotics - Follow up ID recs Assessment & Plan (01/04/2025 3:15 PM CDT): Neurosurgery assessed her on 01/02; stated the pachymeningeal enhancement on her MRI is unlikely to be meningitis and could represent low pressure from her [employer] shunt; unlikely to represent the cause of her AMS. Imaging has been concerning for discitis-osteomyelitis of T1-T2 and T12-L1 as well as subdural empyemas of the C-spine and T-spine. Patient's presentation of multifocal embolic phenomena in multiple vascular territories, multifocal subdural empyemas are highly concerning for an occult bacteremia that seeded multiple organ spaces, possibly in association with endocarditis. This is not consistent with a viral meningitis process and acyclovir can be stopped at this time. Would recommend JANELLE particularly in the setting of her pacemaker as any evidence of endocarditis would require PPM removal. On assessment, patient falling asleep frequently during conversation. Denies fevers/chills, vomiting, or new foci of pain. Reports on going neck pain. States she has some nausea and will often feel full part way through her meal. Denies loose stools prior to presentation. Denies any pets at home, exposure to cats or livestock or birds. Plan for bx today, JANELLE scheduled 01/07. Recommendations: - Please obtain JANELLE to better evaluate for pacemaker-associated endocarditis - Stop acyclovir and ampicillin - Continue vancomycin and cefepime -While on the IV antibiotics, please obtain at least a weekly cbc with diff, weekly LFTs, TWICE weekly BMP and vancomycin trough prior to the 4th dose (goal 15-20) - Surgical/IR drainage of subdural empyemas of C-spine and T/L spine; send for bacterial, fungal and AFB cultures - Agree with vertebral bone biopsy; send for bacterial/fiungal/AFB cultures - Will likely recommend 16S sequencing of tissue if no growth - Follow up blood cultures 01/03 - Given LP not feasible, would discuss with neurosurgery whether it is possible to sample directly from [employer] shunt for cultures. Without sampling, I cannot say the shunt is not infected, which would affect management going forward. 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 She presented with hyponatremia to 122, her baseline is upper 120s. Lytes otherwise unremarkable and euglycemic. TSH 2.75, fT4 1.44. ESR 50, CRP 317->193, ferritin 806. Noninfectious UA. EEG with diffuse slowing, no focal slowing or epileptiform changes. Ehrlichia, lyme, and anaplasma negative and s/p doxycycline 12/29-12/31. Brain MRI on 01/01 was remarkable for multiple punctate acute infarcts of the right internal capsule, right centrum semiovale bowel, left parietal white matter, and left cerebellar hemisphere involving multiple vascular territories, raising suspicion for an embolic source. Diffuse pachymeningeal thickening of the brain and cervical spine with cervical spine subdural hemorrhage extending from C2 to C3-C4 resulting in severe canal stenosis. MRI Spine thoracic and lumbar showed discitis and osteomyelitis at T1-T2 and T12-L1. Fluid filled subdural space possibly an empyema spinal infection. Initially were concerned for meningoencephalitic process and brain MRI revealed multifocal punctate infarcts. The infarcts are likely occurring within the prior 3-4 days (did not all occur on the day, varying ages). Given its multivascular territories, etiology may be a septic emboli from cardiac source. Multifocal infarcts are also likely contributing to her altered mental status, however AMS is likely multifactorial in the setting of hyponatremia, new infarcts, and possible meningitis/infection spread. Her WBCs are holding stable at 11.79. Blood culture has no growths as of date. PLAN: - Continue empirical meningitis treatment, per neurology and ID consults: - Current abx regimen: - Acyclovir 10mg/kg q12h - Ampicillin 2gIV q6h - Cefepime 2gIV q12h - Vancomycin 15mg/kg IV q12h - May consider discontinuing ampicillin in next 48 hrs if blood culture does not grow Listeria - Bone biopsy with [facility] IR today - IR will not perform LP given risk of subdural empyema seeding CSF space - JANELLE for suspected septic emboli tentatively scheduled for 01/07 - Neurology consulted - aspirin 81 mg (held, will follow up post bone biopsy) - crestor 40 mg daily - Pt will need loop monitor on discharge - stroke follow up - BP goal: gradual normotension - Neurosurgery consulted: no surgical interventions at this time, spine is stable, no activity restrictions. - Delirium precautions, avoid sedating medications - Ophthalmology consulted for acute visual changes/floaters and evaluation for possible infectious spread to eyes Assessment & Plan (01/25/2025 12:16 PM CDT): Patient's presentation of multifocal embolic phenomena in multiple vascular territories, multifocal subdural empyemas are highly concerning for an occult bacteremia that seeded multiple organ spaces, possibly in association with endocarditis. This is not consistent with a viral meningitis process and acyclovir can be stopped at this time. Would recommend JANELLE Recommendations: - Please obtain JANELLE - Stop acyclovir - Continue ampicillin/vancomycin/cefepime at current doses; likely dc ampicillin if no evidence of listeria in next 48h - Surgical/IR drainage of subdural empyemas of C-spine and T/L spine; send for bacterial, fungal and AFB cultures - Agree with vertebral bone biopsy; send for bacterial/fiungal/AFB cultures - Will likely recommend 16S sequencing of tissue if no growth - Follow up blood cultures 01/03 - Given LP not feasible, would discuss with neurosurgery whether it is possible to sample directly from [employer] shunt for cultures. Without sampling, I cannot say the shunt is not infected, which would affect management going forward. Upper extremity weakness 01/01/202502/2025 Assessment & Plan (01/16/2025 8:15 AM CDT): Hx RA. Patient reported upper extremity weakness and tremors 12/27. On review her exam appears to consistently be around 4/5 in the bilateral upper extremities. C spine MRI showed disruption of the ligamentum flavum at C2, prevertebral upper cervical soft tissue edema, cervical spine subdural hemorrhage extending from C2 to C3-C4 resulting in severe canal stenosis which is secondary to a combination of spondylosis and the subdural hemorrhage, and edema throughout the C2 vertebral body/dens. PLAN: - NSGY consulted - Recommend MRI lumbar and thoracic spine showing abscesses - f/u EMG results from OSH Assessment & Plan (01/15/2025 6:46 AM CDT): Hx RA. Patient reported upper extremity weakness and tremors 12/27. On review her exam appears to consistently be around 4/5 in the bilateral upper extremities. C spine MRI showed disruption of the ligamentum flavum at C2, prevertebral upper cervical soft tissue edema, cervical spine subdural hemorrhage extending from C2 to C3-C4 resulting in severe canal stenosis which is secondary to a combination of spondylosis and the subdural hemorrhage, and edema throughout the C2 vertebral body/dens. PLAN: - NSGY consulted - Recommend MRI lumbar and thoracic spine showing abscesses - f/u EMG results from OSH Assessment & Plan (01/14/2025 10:44 AM CDT): Hx RA. Patient reported upper extremity weakness and tremors 12/27. On review her exam appears to consistently be around 4/5 in the bilateral upper extremities. C spine MRI showed disruption of the ligamentum flavum at C2, prevertebral upper cervical soft tissue edema, cervical spine subdural hemorrhage extending from C2 to C3-C4 resulting in severe canal stenosis which is secondary to a combination of spondylosis and the subdural hemorrhage, and edema throughout the C2 vertebral body/dens. PLAN: - HELENGY consulted - Recommend MRI lumbar and thoracic spine showing abscesses - f/u EMG results from OSH Assessment & Plan (01/14/2025 6:47 AM CDT): Hx RA. Patient reported upper extremity weakness and tremors 9/15. On review her exam appears to consistently be around 4/5 in the bilateral upper extremities. C spine MRI showed disruption of the ligamentum flavum at C2, prevertebral upper cervical soft tissue edema, cervical spine subdural hemorrhage extending from C2 to C3-C4 resulting in severe canal stenosis which is secondary to a combination of spondylosis and the subdural hemorrhage, and edema throughout the C2 vertebral body/dens. PLAN: - JANIE consulted - Recommend MRI lumbar and thoracic spine showing abscesses - f/u EMG results from OSH Assessment & Plan (01/13/2025 6:50 AM CDT): Hx RA. Patient reported upper extremity weakness and tremors 9/15. On review her exam appears to consistently be around 4/5 in the bilateral upper extremities. C spine MRI showed disruption of the ligamentum flavum at C2, prevertebral upper cervical soft tissue edema, cervical spine subdural hemorrhage extending from C2 to C3-C4 resulting in severe canal stenosis which is secondary to a combination of spondylosis and the subdural hemorrhage, and edema throughout the C2 vertebral body/dens. PLAN: - HELENGY consulted - Recommend MRI lumbar and thoracic spine showing abscesses - f/u EMG results from OSH Assessment & Plan (01/12/2025 9:38 AM CDT): Hx RA. Patient reported upper extremity weakness and tremors 9/15. On review her exam appears to consistently be around 4/5 in the bilateral upper extremities. C spine MRI showed disruption of the ligamentum flavum at C2, prevertebral upper cervical soft tissue edema, cervical spine subdural hemorrhage extending from C2 to C3-C4 resulting in severe canal stenosis which is secondary to a combination of spondylosis and the subdural hemorrhage, and edema throughout the C2 vertebral body/dens. PLAN: - HELENGY consulted - Recommend MRI lumbar and thoracic spine showing abscesses - f/u EMG results from OSH Assessment & Plan (01/12/2025 7:08 AM CDT): Hx RA. Patient reported upper extremity weakness and tremors 15. On review her exam appears to consistently be around 4/5 in the bilateral upper extremities. C spine MRI showed disruption of the ligamentum flavum at C2, prevertebral upper cervical soft tissue edema, cervical spine subdural hemorrhage extending from C2 to C3-C4 resulting in severe canal stenosis which is secondary to a combination of spondylosis and the subdural hemorrhage, and edema throughout the C2 vertebral body/dens. PLAN: - JANIE consulted - Recommend MRI lumbar and thoracic spine showing abscesses - f/u EMG results from OSH Assessment & Plan (01/11/2025 8:17 AM CDT): Hx RA. Patient reported upper extremity weakness and tremors 15. On review her exam appears to consistently be around 4/5 in the bilateral upper extremities. C spine MRI showed disruption of the ligamentum flavum at C2, prevertebral upper cervical soft tissue edema, cervical spine subdural hemorrhage extending from C2 to C3-C4 resulting in severe canal stenosis which is secondary to a combination of spondylosis and the subdural hemorrhage, and edema throughout the C2 vertebral body/dens. PLAN: - JANIE consulted - Recommend MRI lumbar and thoracic spine showing abscesses - f/u EMG results from OSH Assessment & Plan (01/11/2025 6:48 AM CDT): Hx RA. Patient reported upper extremity weakness and tremors /15. On review her exam appears to consistently be around 4/5 in the bilateral upper extremities. C spine MRI showed disruption of the ligamentum flavum at C2, prevertebral upper cervical soft tissue edema, cervical spine subdural hemorrhage extending from C2 to C3-C4 resulting in severe canal stenosis which is secondary to a combination of spondylosis and the subdural hemorrhage, and edema throughout the C2 vertebral body/dens. PLAN: - HELENGY consulted - Recommend MRI lumbar and thoracic spine showing abscesses - f/u EMG results from OSH Assessment & Plan (01/10/2025 6:47 AM CDT): Hx RA. Patient reported upper extremity weakness and tremors 9/15. On review her exam appears to consistently be around 4/5 in the bilateral upper extremities. C spine MRI showed disruption of the ligamentum flavum at C2, prevertebral upper cervical soft tissue edema, cervical spine subdural hemorrhage extending from C2 to C3-C4 resulting in severe canal stenosis which is secondary to a combination of spondylosis and the subdural hemorrhage, and edema throughout the C2 vertebral body/dens. PLAN: - NSGY consulted - Recommend MRI lumbar and thoracic spine showing abscesses - f/u EMG results from OSH Assessment & Plan (01/09/2025 6:44 AM CDT): Hx RA. Patient reported upper extremity weakness and tremors 9/15. On review her exam appears to consistently be around 4/5 in the bilateral upper extremities. C spine MRI showed disruption of the ligamentum flavum at C2, prevertebral upper cervical soft tissue edema, cervical spine subdural hemorrhage extending from C2 to C3-C4 resulting in severe canal stenosis which is secondary to a combination of spondylosis and the subdural hemorrhage, and edema throughout the C2 vertebral body/dens. PLAN: - NSGY consulted - Recommend MRI lumbar and thoracic spine showing abscesses - f/u EMG results from OSH Assessment & Plan (01/08/2025 7:02 AM CDT): Hx RA. Patient reported upper extremity weakness and tremors 9/15. On review her exam appears to consistently be around 4/5 in the bilateral upper extremities. C spine MRI showed disruption of the ligamentum flavum at C2, prevertebral upper cervical soft tissue edema, cervical spine subdural hemorrhage extending from C2 to C3-C4 resulting in severe canal stenosis which is secondary to a combination of spondylosis and the subdural hemorrhage, and edema throughout the C2 vertebral body/dens. PLAN: - NSGY consulted - Recommend MRI lumbar and thoracic spine showing abscesses - f/u EMG results from OSH Assessment & Plan (01/07/2025 11:18 AM CDT): Hx RA. Patient reported upper extremity weakness and tremors 9/15. On review her exam appears to consistently be around 4/5 in the bilateral upper extremities. C spine MRI showed disruption of the ligamentum flavum at C2, prevertebral upper cervical soft tissue edema, cervical spine subdural hemorrhage extending from C2 to C3-C4 resulting in severe canal stenosis which is secondary to a combination of spondylosis and the subdural hemorrhage, and edema throughout the C2 vertebral body/dens. PLAN: - HELENGY consulted - Recommend MRI lumbar and thoracic spine showing abscesses - f/u EMG results from OSH Assessment & Plan (01/07/2025 7:00 AM CDT): Hx RA. Patient reported upper extremity weakness and tremors /. On review her exam appears to consistently be around 4/5 in the bilateral upper extremities. C spine MRI showed disruption of the ligamentum flavum at C2, prevertebral upper cervical soft tissue edema, cervical spine subdural hemorrhage extending from C2 to C3-C4 resulting in severe canal stenosis which is secondary to a combination of spondylosis and the subdural hemorrhage, and edema throughout the C2 vertebral body/dens. PLAN: - JANIE consulted - Recommend MRI lumbar and thoracic spine showing abscesses - f/u EMG results from OSH Assessment & Plan (01/06/2025 9:01 AM CDT): Hx RA. Patient reported upper extremity weakness and tremors /15. On review her exam appears to consistently be around 4/5 in the bilateral upper extremities. C spine MRI showed disruption of the ligamentum flavum at C2, prevertebral upper cervical soft tissue edema, cervical spine subdural hemorrhage extending from C2 to C3-C4 resulting in severe canal stenosis which is secondary to a combination of spondylosis and the subdural hemorrhage, and edema throughout the C2 vertebral body/dens. PLAN: - NSDARREN consulted - Recommend MRI lumbar and thoracic spine showing abscesses - f/u EMG results from OSH Assessment & Plan (01/06/2025 6:54 AM CDT): Hx RA. Patient reported upper extremity weakness and tremors 9/15. On review her exam appears to consistently be around 4/5 in the bilateral upper extremities. C spine MRI showed disruption of the ligamentum flavum at C2, prevertebral upper cervical soft tissue edema, cervical spine subdural hemorrhage extending from C2 to C3-C4 resulting in severe canal stenosis which is secondary to a combination of spondylosis and the subdural hemorrhage, and edema throughout the C2 vertebral body/dens. PLAN: - NSGY consulted - Recommend MRI lumbar and thoracic spine showing abscesses - f/u EMG results from OSH Assessment & Plan (01/05/2025 6:41 AM CDT): Patient reported upper extremity weakness and tremors /. Physical exam appears to consistently be around 4/5 in the bilateral upper extremities. Cervical spine MRI showed disruption of the ligamentum flavum at C2, prevertebral upper cervical soft tissue edema, cervical spine subdural hemorrhage extending from C2 to C3-C4 resulting in severe canal stenosis which is secondary to a combination of spondylosis and the subdural hemorrhage, and edema throughout the C2 vertebral body/dens. PLAN: - NSGY, neurology consulted - continue hydroxychloroquine 400mg three times weekly, folate 1mg daily - holding meloxicam given c/f TME - holding methotrexate iso possible infection Assessment & Plan (01/04/2025 8:19 AM CDT): Patient reported upper extremity weakness and tremors /. Physical exam appears to consistently be around 4/5 in the bilateral upper extremities. Cervical spine MRI showed disruption of the ligamentum flavum at C2, prevertebral upper cervical soft tissue edema, cervical spine subdural hemorrhage extending from C2 to C3-C4 resulting in severe canal stenosis which is secondary to a combination of spondylosis and the subdural hemorrhage, and edema throughout the C2 vertebral body/dens. PLAN: - NSGY, neurology consulted - continue hydroxychloroquine 400mg three times weekly, folate 1mg daily - holding meloxicam given c/f TME - holding methotrexate iso possible infection Assessment & Plan (01/04/2025 4:33 PM CDT): Hx RA. Patient reported upper extremity weakness and tremors 12/27. On review her exam appears to consistently be around 4/5 in the bilateral upper extremities. C spine MRI showed disruption of the ligamentum flavum at C2, prevertebral upper cervical soft tissue edema, cervical spine subdural hemorrhage extending from C2 to C3-C4 resulting in severe canal stenosis which is secondary to a combination of spondylosis and the subdural hemorrhage, and edema throughout the C2 vertebral body/dens. PLAN: - NSGY consulted - Recommend MRI lumbar and thoracic spine showing abscesses - f/u EMG results from OSH Assessment & Plan (01/03/2025 3:40 PM CDT): Hx RA. Patient reported upper extremity weakness and tremors 9/15. On review her exam appears to consistently be around 4/5 in the bilateral upper extremities. C spine MRI showed disruption of the ligamentum flavum at C2, prevertebral upper cervical soft tissue edema, cervical spine subdural hemorrhage extending from C2 to C3-C4 resulting in severe canal stenosis which is secondary to a combination of spondylosis and the subdural hemorrhage, and edema throughout the C2 vertebral body/dens. PLAN: - HELENGY, neurology consulted - continue hydroxychloroquine 400mg three times weekly, folate 1mg daily - holding meloxicam given c/f TME - holding methotrexate iso possible infection Assessment & Plan (01/03/2025 9:10 AM CDT): Hx RA. Patient reported upper extremity weakness and tremors 9/15. On review her exam appears to consistently be around 4/5 in the bilateral upper extremities. C spine MRI showed disruption of the ligamentum flavum at C2, prevertebral upper cervical soft tissue edema, cervical spine subdural hemorrhage extending from C2 to C3-C4 resulting in severe canal stenosis which is secondary to a combination of spondylosis and the subdural hemorrhage, and edema throughout the C2 vertebral body/dens. PLAN: - NSGY consulted - Recommend MRI lumbar and thoracic spine - f/u EMG results from OSH Assessment & Plan (01/02/2025 1:56 PM CDT): Hx RA. Patient reported upper extremity weakness and tremors 9/15. On review her exam appears to consistently be around 4/5 in the bilateral upper extremities. C spine MRI showed disruption of the ligamentum flavum at C2, prevertebral upper cervical soft tissue edema, cervical spine subdural hemorrhage extending from C2 to C3-C4 resulting in severe canal stenosis which is secondary to a combination of spondylosis and the subdural hemorrhage, and edema throughout the C2 vertebral body/dens. PLAN: - NSGY consulted - Recommend MRI lumbar and thoracic spine - f/u EMG results from OSH Assessment & Plan (01/02/2025 11:51 AM CDT): Hx RA. Patient reported upper extremity weakness and tremors 9/15. On review her exam appears to consistently be around 4/5 in the bilateral upper extremities. No tremors witnessed. CT C-spine demonstrated moderate degenerative changes with neuroforaminal stenosis at C7-T1, which could be contributing to her symptoms. CK 26. EMG completed at OSH for all four extremities and pending. Lower concern for an underlying etiology for both her upper extremity weakness and altered mental status given that her mild upper extremity exam is also consistent with known spinal degenerative disease. 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 Negative for tick-borne disease. CK with low c/f myopathy, will also add on an aldolase. - f/u MRI c-spine - CK wnl, f/u aldolase - f/u EMG results from OSH Assessment & Plan (01/01/2025 3:28 AM CDT): Hx RA. Patient reported upper extremity weakness and tremors 9/15. On review her exam appears to consistently be around 4/5 in the bilateral upper extremities. No tremors witnessed. CT C-spine demonstrated moderate degenerative changes with neuroforaminal stenosis at C7-T1, which could be contributing to her symptoms. CK 26. EMG completed at OSH for all four extremities and pending. Lower concern for an underlying etiology for both her upper extremity weakness and altered mental status given that her mild upper extremity exam is also consistent with known spinal degenerative disease. 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 Negative for tick-borne disease. CK with low c/f myopathy, will also add on an aldolase. - f/u MRI c-spine - CK wnl, f/u aldolase - f/u EMG results from OSH Acute hypoxic respiratory failure (resolved) 5 01/22/2025 Assessment & Plan (01/17/2025 7:27 AM CDT): Presented with new oxygen requirement to 4L, opacities on initial CXR concerning for CAP vs fluid overload. BNP 16k ([address]22[address] PE with poorly timed contrast but negative for acute PE, positive for bilateral pleural effusions and atelectasis. S/p CTX (12/27-12/31) and azithromycin, as well as a dose of IV Lasix. Successfully weaned to room air, satting well. - CTM Assessment & Plan (01/16/2025 11:44 AM CDT): Presented with new oxygen requirement to 4L, opacities on initial CXR concerning for CAP vs fluid overload. BNP 16k (399 [address]22[address] PE with poorly timed contrast but negative for acute PE, positive for bilateral pleural effusions and atelectasis. S/p CTX (12/27-12/31) and azithromycin, as well as a dose of IV Lasix. Successfully weaned to room air, satting well. - CTM Assessment & Plan (01/15/2025 6:46 AM CDT): Presented with new oxygen requirement to 4L, opacities on initial CXR concerning for CAP vs fluid overload. BNP 16k ([address] PE with poorly timed contrast but negative for acute PE, positive for bilateral pleural effusions and atelectasis. S/p CTX (12/27-12/31) and azithromycin, as well as a dose of IV Lasix. Successfully weaned to room air, satting well. - CTM Assessment & Plan (01/14/2025 10:44 AM CDT): Presented with new oxygen requirement to 4L, opacities on initial CXR concerning for CAP vs fluid overload. BNP 16k ([address]22[address] PE with poorly timed contrast but negative for acute PE, positive for bilateral pleural effusions and atelectasis. S/p CTX (12/27-12/31) and azithromycin, as well as a dose of IV Lasix. Successfully weaned to room air, satting well. - CTM Assessment & Plan (01/14/2025 6:47 AM CDT): Presented with new oxygen requirement to 4L, opacities on initial CXR concerning for CAP vs fluid overload. BNP 16k ([address] PE with poorly timed contrast but negative for acute PE, positive for bilateral pleural effusions and atelectasis. S/p CTX (12/27-12/31) and azithromycin, as well as a dose of IV Lasix. Successfully weaned to room air, satting well. - CTM Assessment & Plan (01/13/2025 6:50 AM CDT): Presented with new oxygen requirement to 4L, opacities on initial CXR concerning for CAP vs fluid overload. BNP 16k ([address] PE with poorly timed contrast but negative for acute PE, positive for bilateral pleural effusions and atelectasis. S/p CTX (12/27-12/31) and azithromycin, as well as a dose of IV Lasix. Successfully weaned to room air, satting well. - CTM Assessment & Plan (01/12/2025 9:38 AM CDT): Presented with new oxygen requirement to 4L, opacities on initial CXR concerning for CAP vs fluid overload. BNP 16k ([address] PE with poorly timed contrast but negative for acute PE, positive for bilateral pleural effusions and atelectasis. S/p CTX (12/27-12/31) and azithromycin, as well as a dose of IV Lasix. Successfully weaned to room air, satting well. - CTM Assessment & Plan (01/12/2025 7:08 AM CDT): Presented with new oxygen requirement to 4L, opacities on initial CXR concerning for CAP vs fluid overload. BNP 16k ([address] PE with poorly timed contrast but negative for acute PE, positive for bilateral pleural effusions and atelectasis. S/p CTX (12/27-12/31) and azithromycin, as well as a dose of IV Lasix. Successfully weaned to room air, satting well. - CTM Assessment & Plan (01/11/2025 8:17 AM CDT): Presented with new oxygen requirement to 4L, opacities on initial CXR concerning for CAP vs fluid overload. BNP 16k ([address] PE with poorly timed contrast but negative for acute PE, positive for bilateral pleural effusions and atelectasis. S/p CTX (12/27-12/31) and azithromycin, as well as a dose of IV Lasix. Successfully weaned to room air, satting well. - CTM Assessment & Plan (01/11/2025 6:48 AM CDT): Presented with new oxygen requirement to 4L, opacities on initial CXR concerning for CAP vs fluid overload. BNP 16k ([address] PE with poorly timed contrast but negative for acute PE, positive for bilateral pleural effusions and atelectasis. S/p CTX (12/27-12/31) and azithromycin, as well as a dose of IV Lasix. Successfully weaned to room air, satting well. - CTM Assessment & Plan (01/10/2025 6:47 AM CDT): Presented with new oxygen requirement to 4L, opacities on initial CXR concerning for CAP vs fluid overload. BNP 16k ([address] PE with poorly timed contrast but negative for acute PE, positive for bilateral pleural effusions and atelectasis. S/p CTX (12/27-12/31) and azithromycin, as well as a dose of IV Lasix. Successfully weaned to room air, satting well. - CTM Assessment & Plan (01/09/2025 6:44 AM CDT): Presented with new oxygen requirement to 4L, opacities on initial CXR concerning for CAP vs fluid overload. BNP 16k ([address] PE with poorly timed contrast but negative for acute PE, positive for bilateral pleural effusions and atelectasis. S/p CTX (12/27-12/31) and azithromycin, as well as a dose of IV Lasix. Successfully weaned to room air, satting well. - CTM Assessment & Plan (01/08/2025 7:02 AM CDT): Presented with new oxygen requirement to 4L, opacities on initial CXR concerning for CAP vs fluid overload. BNP 16k ([address] PE with poorly timed contrast but negative for acute PE, positive for bilateral pleural effusions and atelectasis. S/p CTX (12/27-12/31) and azithromycin, as well as a dose of IV Lasix. Successfully weaned to room air, satting well. - CTM Assessment & Plan (01/07/2025 11:18 AM CDT): Presented with new oxygen requirement to 4L, opacities on initial CXR concerning for CAP vs fluid overload. BNP 16k ([address] PE with poorly timed contrast but negative for acute PE, positive for bilateral pleural effusions and atelectasis. S/p CTX (12/27-12/31) and azithromycin, as well as a dose of IV Lasix. Successfully weaned to room air, satting well. - CTM Assessment & Plan (01/07/2025 7:00 AM CDT): Presented with new oxygen requirement to 4L, opacities on initial CXR concerning for CAP vs fluid overload. BNP 16k ([address] PE with poorly timed contrast but negative for acute PE, positive for bilateral pleural effusions and atelectasis. S/p CTX (12/27-12/31) and azithromycin, as well as a dose of IV Lasix. Successfully weaned to room air, satting well. - CTM Assessment & Plan (01/06/2025 9:01 AM CDT): Presented with new oxygen requirement to 4L, opacities on initial CXR concerning for CAP vs fluid overload. BNP 16k ([address] PE with poorly timed contrast but negative for acute PE, positive for bilateral pleural effusions and atelectasis. S/p CTX (12/27-12/31) and azithromycin, as well as a dose of IV Lasix. Successfully weaned to room air, satting well. - CTM Assessment & Plan (01/06/2025 6:54 AM CDT): Presented with new oxygen requirement to 4L, opacities on initial CXR concerning for CAP vs fluid overload. BNP 16k ([address] PE with poorly timed contrast but negative for acute PE, positive for bilateral pleural effusions and atelectasis. S/p CTX (12/27-12/31) and azithromycin, as well as a dose of IV Lasix. Successfully weaned to room air, satting well. - CTM Assessment & Plan (01/04/2025 4:33 PM CDT): Presented with new oxygen requirement to 4L, opacities on initial CXR concerning for CAP vs fluid overload. BNP 16k ([address] PE with poorly timed contrast but negative for acute PE, positive for bilateral pleural effusions and atelectasis. S/p CTX (12/27-12/31) and azithromycin, as well as a dose of IV Lasix. Successfully weaned to room air, satting well. - CTM Assessment & Plan (01/03/2025 9:10 AM CDT): Presented with new oxygen requirement to 4L, opacities on initial CXR concerning for CAP vs fluid overload. BNP 16k ([address] PE with poorly timed contrast but negative for acute PE, positive for bilateral pleural effusions and atelectasis. S/p CTX (12/27-12/31) and azithromycin, as well as a dose of IV Lasix. Successfully weaned to room air, satting well. - CTM Assessment & Plan (01/02/2025 1:56 PM CDT): Presented with new oxygen requirement to 4L, opacities on initial CXR concerning for CAP vs fluid overload. BNP 16k ([address] PE with poorly timed contrast but negative for acute PE, positive for bilateral pleural effusions and atelectasis. S/p CTX (12/27-12/31) and azithromycin, as well as a dose of IV Lasix. Successfully weaned to room air, satting well. - CTM Assessment & Plan (01/02/2025 11:51 AM CDT): Presented with new oxygen requirement to 4L, opacities on initial CXR concerning for CAP vs fluid overload. BNP 16k ([address] PE with poorly timed contrast but negative for acute PE, positive for bilateral pleural effusions and atelectasis. S/p CTX (12/27-12/31) and azithromycin, as well as a dose of IV Lasix. Successfully weaned to room air, satting well. - CTM Assessment & Plan (01/01/2025 8:31 AM CDT): Presented with new oxygen requirement to 4L, opacities on initial CXR concerning for CAP vs fluid overload. BNP 16k ([address] PE with poorly timed contrast but negative for acute PE, positive for bilateral pleural effusions and atelectasis. S/p CTX (12/27-12/31) and azithromycin, as well as a dose of IV Lasix. Successfully weaned to room air, satting well. - CTM CHF (congestive heart failure) 01/01/2025 01/22/2025 Assessment & Plan (01/17/2025 7:27 AM CDT): EF 41% in 2021, 60-65% 12/28/24. New oxygen requirement and BNP 16k on admission, 399 in 2022. Now on room air, s/p Lasix x1. - continue GDMT: coreg 25mg BID, losartan 100mg daily - Continue amlodipine 5mg Assessment & Plan (01/16/2025 11:44 AM CDT): EF 41% in 2021, 60-65% 12/28/24. New oxygen requirement and BNP 16k on admission, 399 in 2022. Now on room air, s/p Lasix x1. - continue GDMT: coreg 25mg BID, losartan 100mg daily - Continue amlodipine 5mg Assessment & Plan (01/15/2025 8:02 AM CDT): EF 41% in 2021, 60-65% 12/28/24. New oxygen requirement and BNP 16k on admission, 399 in 2022. Now on room air, s/p Lasix x1. - continue GDMT: coreg 25mg BID, losartan 100mg daily - Continue amlodipine 5mg Assessment & Plan (01/14/2025 10:44 AM CDT): EF 41% in 2021, 60-65% 12/28/24. New oxygen requirement and BNP 16k on admission, 399 in 2022. Now on room air, s/p Lasix x1. - continue GDMT: coreg 25mg BID, losartan 100mg daily - BP consistently elevated for 2 days. Plan to start amlodipine 5 mg daily today. Assessment & Plan (01/14/2025 2:15 PM CDT): EF 41% in 2021, 60-65% 12/28/24. New oxygen requirement and BNP 16k on admission, 399 in 2022. Now on room air, s/p Lasix x1. - continue GDMT: coreg 25mg BID, losartan 100mg daily - add amlodipine 5mg daily Assessment & Plan (01/13/2025 1:39 PM CDT): EF 41% in 2021, 60-65% 12/28/24. New oxygen requirement and BNP 16k on admission, 399 in 2022. Now on room air, s/p Lasix x1. - continue GDMT: coreg 25mg BID, losartan 100mg daily Assessment & Plan (01/12/2025 9:38 AM CDT): EF 41% in 2021, 60-65% 12/28/24. New oxygen requirement and BNP 16k on admission, 399 in 2022. Now on room air, s/p Lasix x1. - continue GDMT: coreg 25mg BID, losartan 100mg daily - discontinue Hydralazine 25 mg TID Assessment & Plan (01/12/2025 7:08 AM CDT): EF 41% in 2021, 60-65% 12/28/24. New oxygen requirement and BNP 16k on admission, 399 in 2022. Now on room air, s/p Lasix x1. - continue GDMT: coreg 25mg BID, losartan 100mg daily - discontinue Hydralazine 25 mg TID Assessment & Plan (01/11/2025 8:17 AM CDT): EF 41% in 2021, 60-65% 12/28/24. New oxygen requirement and BNP 16k on admission, 399 in 2022. Now on room air, s/p Lasix x1. - continue GDMT: coreg 25mg BID, losartan 100mg daily - discontinue Hydralazine 25 mg TID Assessment & Plan (01/11/2025 6:48 AM CDT): EF 41% in 2021, 60-65% 12/28/24. New oxygen requirement and BNP 16k on admission, 399 in 2022. Now on room air, s/p Lasix x1. - continue GDMT: coreg 25mg BID, losartan 100mg daily - discontinue Hydralazine 25 mg TID Assessment & Plan (01/10/2025 11:00 AM CDT): EF 41% in 2021, 60-65% 12/28/24. New oxygen requirement and BNP 16k on admission, 399 in 2022. Now on room air, s/p Lasix x1. - continue GDMT: coreg 25mg BID, losartan 100mg daily - discontinue Hydralazine 25 mg TID Assessment & Plan (01/09/2025 6:44 AM CDT): EF 41% in 2021, 60-65% 12/28/24. New oxygen requirement and BNP 16k on admission, 399 in 2022. Now on room air, s/p Lasix x1. - continue GDMT: coreg 25mg BID, losartan 100mg daily - Start Hydralazine 25 mg TID -Patient unable to take PO meds, suspicion for new stroke, permissive hypertension, -PRN IV hydralazine 10mg Q6 if systolic >200 Assessment & Plan (01/08/2025 9:39 AM CDT): EF 41% in 2021, 60-65% 12/28/24. New oxygen requirement and BNP 16k on admission, 399 in 2022. Now on room air, s/p Lasix x1. - continue GDMT: coreg 25mg BID, losartan 100mg daily - Start Hydralazine 25 mg TID -Patient unable to take PO meds, suspicion for new stroke, permissive hypertension, -PRN IV hydralazine 10mg Q6 if systolic >200 Assessment & Plan (01/07/2025 11:18 AM CDT): EF 41% in 2021, 60-65% 12/28/24. New oxygen requirement and BNP 16k on admission, 399 in 2022. Now on room air, s/p Lasix x1. - continue GDMT: coreg 25mg BID, losartan 100mg daily - Start Hydralazine 25 mg TID Assessment & Plan (01/07/2025 7:00 AM CDT): EF 41% in 2021, 60-65% 12/28/24. New oxygen requirement and BNP 16k on admission, 399 in 2022. Now on room air, s/p Lasix x1. - continue GDMT: coreg 25mg BID, losartan 100mg daily - Start Hydralazine 25 mg TID Assessment & Plan (01/06/2025 9:01 AM CDT): EF 41% in 2021, 60-65% 12/28/24. New oxygen requirement and BNP 16k on admission, 399 in 2022. Now on room air, s/p Lasix x1. - continue GDMT: coreg 25mg BID, losartan 100mg daily - Start Hydralazine 25 mg TID Assessment & Plan (01/06/2025 6:54 AM CDT): EF 41% in 2021, 60-65% 12/28/24. New oxygen requirement and BNP 16k on admission, 399 in 2022. Now on room air, s/p Lasix x1. - continue GDMT: coreg 25mg BID, losartan 100mg daily - Start Hydralazine 25 mg TID Assessment & Plan (01/05/2025 6:41 AM CDT): Mild concentric LV hypertrophy and diastolic dysfunction. EF 60-65% 12/28/24. New oxygen requirement and BNP 16k on admission, 399 in 2022. Pt is now on room air, s/p Lasix x1. Blood pressure readings overnight 01/03 and early 01/04 this morning were ranging in 160s/60s with a high this AM of 197/68. HTN was well controlled prior to admission and this increase in pressures is likely due to her acute infection. PLAN: - continue coreg 25mg BID, losartan 100mg nightly - add hydralazine 25mg TID (will re-evaluate BPs after biopsy today to see if further changes are needed) Assessment & Plan (01/04/2025 11:25 AM CDT): Mild concentric LV hypertrophy and diastolic dysfunction. EF 60-65% 12/28/24. New oxygen requirement and BNP 16k on admission, 399 in 2022. Pt is now on room air, s/p Lasix x1. Blood pressure readings overnight 01/03 and early 01/04 this morning were ranging in 160s/60s with a high this AM of 197/68. HTN was well controlled prior to admission and this increase in pressures is likely due to her acute infection. PLAN: - continue coreg 25mg BID, losartan 100mg nightly - add hydralazine 25mg TID (will re-evaluate BPs after biopsy today to see if further changes are needed) Assessment & Plan (01/04/2025 4:33 PM CDT): EF 41% in 2021, 60-65% 12/28/24. New oxygen requirement and BNP 16k on admission, 399 in 2022. Now on room air, s/p Lasix x1. - continue GDMT: coreg 25mg BID, losartan 100mg daily - Start Hydralazine 25 mg TID Assessment & Plan (01/03/2025 3:40 PM CDT): EF 41% in 2021, 60-65% 12/28/24. New oxygen requirement and BNP 16k on admission, 399 in 2022. Now on room air, s/p Lasix x1. - continue GDMT: coreg 25mg BID, losartan 100mg daily Assessment & Plan (01/03/2025 9:10 AM CDT): EF 41% in 2021, 60-65% 12/28/24. New oxygen requirement and BNP 16k on admission, 399 in 2022. Now on room air, s/p Lasix x1. - continue GDMT: coreg 25mg BID, losartan 100mg daily Assessment & Plan (01/02/2025 1:56 PM CDT): EF 41% in 2021, 60-65% 12/28/24. New oxygen requirement and BNP 16k on admission, 399 in 2022. Now on room air, s/p Lasix x1. - continue GDMT: coreg 25mg BID, losartan 100mg daily Assessment & Plan (01/02/2025 11:51 AM CDT): EF 41% in 2021, 60-65% 12/28/24. New oxygen requirement and BNP 16k on admission, 399 in 2022. Now on room air, s/p Lasix x1. - continue GDMT: coreg 25mg BID, losartan 100mg daily Assessment & Plan (01/01/2025 3:39 AM CDT): EF 41% in 2021, 60-65% 12/28/24. New oxygen requirement and BNP 16k on admission, 399 in 2022. Now on room air, s/p Lasix x1. - continue GDMT: coreg 25mg BID, losartan 100mg daily Neck pain 01/01/2025 01/22/2025 Assessment & Plan (01/17/2025 7:27 AM CDT): Chronic back pain on meloxicam 15mg daily. - hold meloxicam 2/2 AMS - gabapentin 100mg TID - tylenol and lidocaine patches PRN Assessment & Plan (01/16/2025 11:44 AM CDT): Chronic back pain on meloxicam 15mg daily. - hold meloxicam 2/2 AMS - gabapentin 100mg TID - tylenol and lidocaine patches PRN Assessment & Plan (01/15/2025 6:46 AM CDT): Chronic back pain on meloxicam 15mg daily. - hold meloxicam 2/2 AMS - gabapentin 100mg TID - tylenol and lidocaine patches PRN Assessment & Plan (01/14/2025 10:44 AM CDT): Chronic back pain on meloxicam 15mg daily. - hold meloxicam 2/2 AMS - gabapentin 100mg TID - tylenol and lidocaine patches PRN Assessment & Plan (01/14/2025 6:47 AM CDT): Chronic back pain on meloxicam 15mg daily. - hold meloxicam 2/2 AMS - gabapentin 100mg TID - tylenol and lidocaine patches PRN Assessment & Plan (01/13/2025 6:50 AM CDT): Chronic back pain on meloxicam 15mg daily. - hold meloxicam 2/2 AMS - gabapentin 100mg TID - tylenol and lidocaine patches PRN Assessment & Plan (01/12/2025 9:38 AM CDT): Chronic back pain on meloxicam 15mg daily. - hold meloxicam 2/2 AMS - gabapentin 100mg TID - tylenol and lidocaine patches PRN Assessment & Plan (01/12/2025 7:08 AM CDT): Chronic back pain on meloxicam 15mg daily. - hold meloxicam 2/2 AMS - gabapentin 100mg TID - tylenol and lidocaine patches PRN Assessment & Plan (01/11/2025 8:17 AM CDT): Chronic back pain on meloxicam 15mg daily. - hold meloxicam 2/2 AMS - gabapentin 100mg TID - tylenol and lidocaine patches PRN Assessment & Plan (01/11/2025 6:48 AM CDT): Chronic back pain on meloxicam 15mg daily. - hold meloxicam 2/2 AMS - gabapentin 100mg TID - tylenol and lidocaine patches PRN Assessment & Plan (01/10/2025 6:47 AM CDT): Chronic back pain on meloxicam 15mg daily. - hold meloxicam 2/2 AMS - gabapentin 100mg TID - tylenol and lidocaine patches PRN Assessment & Plan (01/09/2025 6:44 AM CDT): Chronic back pain on meloxicam 15mg daily. - hold meloxicam 2/2 AMS - gabapentin 100mg TID - tylenol and lidocaine patches PRN Assessment & Plan (01/08/2025 7:02 AM CDT): Chronic back pain on meloxicam 15mg daily. - hold meloxicam 2/2 AMS - gabapentin 100mg TID - tylenol and lidocaine patches PRN Assessment & Plan (01/07/2025 11:18 AM CDT): Chronic back pain on meloxicam 15mg daily. - hold meloxicam 2/2 AMS - gabapentin 100mg TID - tylenol and lidocaine patches PRN Assessment & Plan (01/07/2025 7:00 AM CDT): Chronic back pain on meloxicam 15mg daily. - hold meloxicam 2/2 AMS - gabapentin 100mg TID - tylenol and lidocaine patches PRN Assessment & Plan (01/06/2025 9:01 AM CDT): Chronic back pain on meloxicam 15mg daily. - hold meloxicam 2/2 AMS - gabapentin 100mg TID - tylenol and lidocaine patches PRN Assessment & Plan (01/06/2025 6:54 AM CDT): Chronic back pain on meloxicam 15mg daily. - hold meloxicam 2/2 AMS - gabapentin 100mg TID - tylenol and lidocaine patches PRN Assessment & Plan (01/05/2025 2:45 PM CDT): Chronic back pain on meloxicam 15mg daily. Ms. Zaldivar is continuing to experience neck pain and aching along her back throughout this admission limiting her movement. PLAN: - start scheduled acetominophen 1000mg Q8hrs - hold meloxicam 2/2 AMS - gabapentin 100mg TID - lidocaine patches PRN Assessment & Plan (01/04/2025 11:14 AM CDT): Chronic back pain on meloxicam 15mg daily. Ms. Zaldivar is continuing to experience neck pain and aching along her back throughout this admission limiting her movement. PLAN: - start scheduled acetominophen 650mg Q8hrs - hold meloxicam 2/2 AMS - gabapentin 100mg TID - lidocaine patches PRN Assessment & Plan (01/04/2025 8:05 AM CDT): Chronic back pain on meloxicam 15mg daily. - hold meloxicam 2/2 AMS - gabapentin 100mg TID - tylenol and lidocaine patches PRN Assessment & Plan (01/03/2025 3:40 PM CDT): Chronic back pain on meloxicam 15mg daily. - hold meloxicam 2/2 AMS - gabapentin 100mg TID - tylenol and lidocaine patches PRN Assessment & Plan (01/03/2025 9:10 AM CDT): Chronic back pain on meloxicam 15mg daily. - hold meloxicam 2/2 AMS - gabapentin 100mg TID - tylenol and lidocaine patches PRN Assessment & Plan (01/02/2025 1:56 PM CDT): Chronic back pain on meloxicam 15mg daily. - hold meloxicam 2/2 AMS - gabapentin 100mg TID - tylenol and lidocaine patches PRN Assessment & Plan (01/02/2025 11:51 AM CDT): Chronic back pain on meloxicam 15mg daily. Also reporting neck pain most consistent with MSK tenderness this admission. - hold meloxicam 2/2 AMS - gabapentin 100mg TID - tylenol and lidocaine patches PRN Assessment & Plan (01/01/2025 3:39 AM CDT): Chronic back pain on meloxicam 15mg daily. Also reporting neck pain most consistent with MSK tenderness this admission. - hold meloxicam 2/2 AMS - gabapentin 100mg TID - tylenol and lidocaine patches PRN GERD (gastroesophageal reflux disease) 01/01/2025 01/01/2025 Swelling of joint of left wrist 01/01/2025 01/22/2025 Assessment & Plan (01/16/2025 11:44 AM CDT): Left wrist/hand are swollen and red, not painful. Left hand/wrist X-ray with widening scapholunate interval that may indicate ligamentous injury, severe degenerative changes, and increased soft tissue swelling. No documented trauma to the wrist, likely a component of IV infiltration. Also does have history of RA. Tick-borne disease testing negative. Venous duplex of the LUE negative - CTM - Pt w/ some relief after ice Assessment & Plan (01/15/2025 6:46 AM CDT): Left wrist/hand are swollen and red, not painful. Left hand/wrist X-ray with widening scapholunate interval that may indicate ligamentous injury, severe degenerative changes, and increased soft tissue swelling. No documented trauma to the wrist, likely a component of IV infiltration. Also does have history of RA. Tick-borne disease testing negative. Venous duplex of the LUE negative - CTM - Pt w/ some relief after ice Assessment & Plan (01/14/2025 10:44 AM CDT): Left wrist/hand are swollen and red, not painful. Left hand/wrist X-ray with widening scapholunate interval that may indicate ligamentous injury, severe degenerative changes, and increased soft tissue swelling. No documented trauma to the wrist, likely a component of IV infiltration. Also does have history of RA. Tick-borne disease testing negative. Venous duplex of the LUE negative - CTM - Pt w/ some relief after ice Assessment & Plan (01/14/2025 6:47 AM CDT): Left wrist/hand are swollen and red, not painful. Left hand/wrist X-ray with widening scapholunate interval that may indicate ligamentous injury, severe degenerative changes, and increased soft tissue swelling. No documented trauma to the wrist, likely a component of IV infiltration. Also does have history of RA. Tick-borne disease testing negative. Venous duplex of the LUE negative - CTM - Pt w/ some relief after ice Assessment & Plan (01/13/2025 6:50 AM CDT): Left wrist/hand are swollen and red, not painful. Left hand/wrist X-ray with widening scapholunate interval that may indicate ligamentous injury, severe degenerative changes, and increased soft tissue swelling. No documented trauma to the wrist, likely a component of IV infiltration. Also does have history of RA. Tick-borne disease testing negative. Venous duplex of the LUE negative - CTM - Pt w/ some relief after ice Assessment & Plan (01/12/2025 9:38 AM CDT): Left wrist/hand are swollen and red, not painful. Left hand/wrist X-ray with widening scapholunate interval that may indicate ligamentous injury, severe degenerative changes, and increased soft tissue swelling. No documented trauma to the wrist, likely a component of IV infiltration. Also does have history of RA. Tick-borne disease testing negative. Venous duplex of the LUE negative - CTM - Pt w/ some relief after ice Assessment & Plan (01/12/2025 7:08 AM CDT): Left wrist/hand are swollen and red, not painful. Left hand/wrist X-ray with widening scapholunate interval that may indicate ligamentous injury, severe degenerative changes, and increased soft tissue swelling. No documented trauma to the wrist, likely a component of IV infiltration. Also does have history of RA. Tick-borne disease testing negative. Venous duplex of the LUE negative - CTM - Pt w/ some relief after ice Assessment & Plan (01/11/2025 8:17 AM CDT): Left wrist/hand are swollen and red, not painful. Left hand/wrist X-ray with widening scapholunate interval that may indicate ligamentous injury, severe degenerative changes, and increased soft tissue swelling. No documented trauma to the wrist, likely a component of IV infiltration. Also does have history of RA. Tick-borne disease testing negative. Venous duplex of the LUE negative - CTM - Pt w/ some relief after ice Assessment & Plan (01/11/2025 6:48 AM CDT): Left wrist/hand are swollen and red, not painful. Left hand/wrist X-ray with widening scapholunate interval that may indicate ligamentous injury, severe degenerative changes, and increased soft tissue swelling. No documented trauma to the wrist, likely a component of IV infiltration. Also does have history of RA. Tick-borne disease testing negative. Venous duplex of the LUE negative - CTM - Pt w/ some relief after ice Assessment & Plan (01/10/2025 6:47 AM CDT): Left wrist/hand are swollen and red, not painful. Left hand/wrist X-ray with widening scapholunate interval that may indicate ligamentous injury, severe degenerative changes, and increased soft tissue swelling. No documented trauma to the wrist, likely a component of IV infiltration. Also does have history of RA. Tick-borne disease testing negative. Venous duplex of the LUE negative - CTM - Pt w/ some relief after ice Assessment & Plan (01/09/2025 6:44 AM CDT): Left wrist/hand are swollen and red, not painful. Left hand/wrist X-ray with widening scapholunate interval that may indicate ligamentous injury, severe degenerative changes, and increased soft tissue swelling. No documented trauma to the wrist, likely a component of IV infiltration. Also does have history of RA. Tick-borne disease testing negative. Venous duplex of the LUE negative - CTM - Pt w/ some relief after ice Assessment & Plan (01/08/2025 7:02 AM CDT): Left wrist/hand are swollen and red, not painful. Left hand/wrist X-ray with widening scapholunate interval that may indicate ligamentous injury, severe degenerative changes, and increased soft tissue swelling. No documented trauma to the wrist, likely a component of IV infiltration. Also does have history of RA. Tick-borne disease testing negative. Venous duplex of the LUE negative - CTM - Pt w/ some relief after ice Assessment & Plan (01/07/2025 11:18 AM CDT): Left wrist/hand are swollen and red, not painful. Left hand/wrist X-ray with widening scapholunate interval that may indicate ligamentous injury, severe degenerative changes, and increased soft tissue swelling. No documented trauma to the wrist, likely a component of IV infiltration. Also does have history of RA. Tick-borne disease testing negative. Venous duplex of the LUE negative - CTM - Pt w/ some relief after ice Assessment & Plan (01/07/2025 7:00 AM CDT): Left wrist/hand are swollen and red, not painful. Left hand/wrist X-ray with widening scapholunate interval that may indicate ligamentous injury, severe degenerative changes, and increased soft tissue swelling. No documented trauma to the wrist, likely a component of IV infiltration. Also does have history of RA. Tick-borne disease testing negative. Venous duplex of the LUE negative - CTM - Pt w/ some relief after ice Assessment & Plan (01/06/2025 9:01 AM CDT): Left wrist/hand are swollen and red, not painful. Left hand/wrist X-ray with widening scapholunate interval that may indicate ligamentous injury, severe degenerative changes, and increased soft tissue swelling. No documented trauma to the wrist, likely a component of IV infiltration. Also does have history of RA. Tick-borne disease testing negative. Venous duplex of the LUE negative - CTM - Pt w/ some relief after ice Assessment & Plan (01/06/2025 6:54 AM CDT): Left wrist/hand are swollen and red, not painful. Left hand/wrist X-ray with widening scapholunate interval that may indicate ligamentous injury, severe degenerative changes, and increased soft tissue swelling. No documented trauma to the wrist, likely a component of IV infiltration. Also does have history of RA. Tick-borne disease testing negative. Venous duplex of the LUE negative - CTM - Pt w/ some relief after ice Assessment & Plan (01/05/2025 6:41 AM CDT): Left wrist/hand are swollen and red, not painful. Left hand/wrist X-ray with widening scapholunate interval that may indicate ligamentous injury, severe degenerative changes, and increased soft tissue swelling. No documented trauma to the wrist, likely a component of IV infiltration. Also does have history of RA. Tick-borne disease testing negative. Venous duplex of the LUE negative PLAN: - CTM - Pt w/ some relief after ice Assessment & Plan (01/04/2025 8:19 AM CDT): Left wrist/hand are swollen and red, not painful. Left hand/wrist X-ray with widening scapholunate interval that may indicate ligamentous injury, severe degenerative changes, and increased soft tissue swelling. No documented trauma to the wrist, likely a component of IV infiltration. Also does have history of RA. Tick-borne disease testing negative. Venous duplex of the LUE negative PLAN: - CTM - Pt w/ some relief after ice Assessment & Plan (01/04/2025 8:05 AM CDT): Left wrist/hand are swollen and red, not painful. Left hand/wrist X-ray with widening scapholunate interval that may indicate ligamentous injury, severe degenerative changes, and increased soft tissue swelling. No documented trauma to the wrist, likely a component of IV infiltration. Also does have history of RA. Tick-borne disease testing negative. Venous duplex of the LUE negative - CTM - Pt w/ some relief after ice Assessment & Plan (01/03/2025 3:40 PM CDT): Left wrist/hand are swollen and red, not painful. Left hand/wrist X-ray with widening scapholunate interval that may indicate ligamentous injury, severe degenerative changes, and increased soft tissue swelling. No documented trauma to the wrist, likely a component of IV infiltration. Also does have history of RA. Tick-borne disease testing negative. Venous duplex of the LUE negative - CTM - Pt w/ some relief after ice Assessment & Plan (01/03/2025 9:10 AM CDT): Left wrist/hand are swollen and red, not painful. Left hand/wrist X-ray with widening scapholunate interval that may indicate ligamentous injury, severe degenerative changes, and increased soft tissue swelling. No documented trauma to the wrist, likely a component of IV infiltration. Also does have history of RA. Tick-borne disease testing negative. Venous duplex of the LUE negative - CTM - Pt w/ some relief after ice Assessment & Plan (01/02/2025 1:56 PM CDT): Left wrist/hand are swollen and red, not painful. Left hand/wrist X-ray with widening scapholunate interval that may indicate ligamentous injury, severe degenerative changes, and increased soft tissue swelling. No documented trauma to the wrist, likely a component of IV infiltration. Also does have history of RA. Tick-borne disease testing negative. Venous duplex of the LUE negative - CTM - Pt w/ some relief after ice Assessment & Plan (01/02/2025 11:51 AM CDT): Left wrist/hand are swollen and red, not painful. Left hand/wrist X-ray with widening scapholunate interval that may indicate ligamentous injury, severe degenerative changes, and increased soft tissue swelling. No documented trauma to the wrist, likely a component of IV infiltration. Also does have history of RA. Tick-borne disease testing negative. - CTM - f/u ven[place] duplex of the LUE Assessment & Plan (01/01/2025 4:31 AM CDT): Left wrist/hand are swollen and red, not painful. Left hand/wrist X-ray with widening scapholunate interval that may indicate ligamentous injury, severe degenerative changes, and increased soft tissue swelling. No documented trauma to the wrist, likely a component of IV infiltration. Also does have history of RA. Tick-borne disease testing negative. - CTM - f/u ven[place] duplex of the LUE Altered mental status 12/31/20242024 Assessment & Plan (01/17/2025 7:27 AM CDT): Hx NPH s/p shunt 2021, MRI conditional. Developed altered mental status characterized by confusion and lethargy at OSH. On chart review, appears to be fully functional at baseline. Had acute on chronic hyponatremia to 122, baseline upper 120s. Lytes otherwise unremarkable and euglycemic. TSH 2.75, fT4 1.44. ESR 50, CRP 317->193, ferritin 806. Noninfectious UA at OSH. EEG with diffuse slowing, no focal slowing or epileptiform changes. Ehrlichia, lyme, and anaplasma negative and s/p doxycycline 12/29-12/31. 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 AMS likely multifactorial iso hyponatremia, new infarcts, and potential infection PLAN: - Continue Ceftriaxone 2gm Q12, Linezolid 600mg Q12, doxy 100mg Q12 - Neurology consulted - aspirin 81 mg qD (will resume after MSK on 01/04) - crestor 40 mg qD - Neurosurgery consulted, so surgical indication at this time - Delirium precautions, avoid sedating medications Assessment & Plan (01/16/2025 8:15 AM CDT): Hx NPH s/p shunt 2021, MRI conditional. Developed altered mental status characterized by confusion and lethargy at OSH. On chart review, appears to be fully functional at baseline. Had acute on chronic hyponatremia to 122, baseline upper 120s. Lytes otherwise unremarkable and euglycemic. TSH 2.75, fT4 1.44. ESR 50, CRP 317->193, ferritin 806. Noninfectious UA at OSH. EEG with diffuse slowing, no focal slowing or epileptiform changes. Ehrlichia, lyme, and anaplasma negative and s/p doxycycline 12/29-12/31. 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 AMS likely multifactorial iso hyponatremia, new infarcts, and potential infection PLAN: - Continue Ceftriaxone 2gm Q12, Linezolid 600mg Q12, doxy 100mg Q12 - Neurology consulted - aspirin 81 mg qD (will resume after MSK on 01/04) - crestor 40 mg qD - stroke follow up; SMART consult - BP goal: gradual normotension - Neurosurgery consulted, so surgical indication at this time - Delirium precautions, avoid sedating medications Assessment & Plan (01/15/2025 8:02 AM CDT): Hx NPH s/p shunt 2021, MRI conditional. Developed altered mental status characterized by confusion and lethargy at OSH. On chart review, appears to be fully functional at baseline. Had acute on chronic hyponatremia to 122, baseline upper 120s. Lytes otherwise unremarkable and euglycemic. TSH 2.75, fT4 1.44. ESR 50, CRP 317->193, ferritin 806. Noninfectious UA at OSH. EEG with diffuse slowing, no focal slowing or epileptiform changes. Ehrlichia, lyme, and anaplasma negative and s/p doxycycline 12/29-12/31. 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 AMS likely multifactorial iso hyponatremia, new infarcts, and potential infection PLAN: - Continue Ceftriaxone 2gm Q12, Linezolid 600mg Q12, doxy 100mg Q12 - Neurology consulted - aspirin 81 mg qD (will resume after MSK on 01/04) - crestor 40 mg qD - stroke follow up; SMART consult - BP goal: gradual normotension - Neurosurgery consulted, so surgical indication at this time - Delirium precautions, avoid sedating medications Assessment & Plan (01/14/2025 10:44 AM CDT): Hx NPH s/p shunt 2021, MRI conditional. Developed altered mental status characterized by confusion and lethargy at OSH. On chart review, appears to be fully functional at baseline. Had acute on chronic hyponatremia to 122, baseline upper 120s. Lytes otherwise unremarkable and euglycemic. TSH 2.75, fT4 1.44. ESR 50, CRP 317->193, ferritin 806. Noninfectious UA at OSH. EEG with diffuse slowing, no focal slowing or epileptiform changes. Ehrlichia, lyme, and anaplasma negative and s/p doxycycline 12/29-12/31. 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 AMS likely multifactorial iso hyponatremia, new infarcts, and potential infection PLAN: - Continue Ceftriaxone 2gm Q12, Linezolid 600mg Q12, doxy 100mg Q12 - Neurology consulted - obtain CTA head and neck - aspirin 81 mg qD (will resume after MSK on 01/04) - crestor 40 mg qD - stroke follow up; SMART consult - BP goal: gradual normotension - Neurosurgery consulted, so surgical indication at this time - Delirium precautions, avoid sedating medications Assessment & Plan (01/14/2025 6:47 AM CDT): Hx NPH s/p shunt 2021, MRI conditional. Developed altered mental status characterized by confusion and lethargy at OSH. On chart review, appears to be fully functional at baseline. Had acute on chronic hyponatremia to 122, baseline upper 120s. Lytes otherwise unremarkable and euglycemic. TSH 2.75, fT4 1.44. ESR 50, CRP 317->193, ferritin 806. Noninfectious UA at OSH. EEG with diffuse slowing, no focal slowing or epileptiform changes. Ehrlichia, lyme, and anaplasma negative and s/p doxycycline 12/29-12/31. 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 AMS likely multifactorial iso hyponatremia, new infarcts, and potential infection PLAN: - Continue Ceftriaxone 2gm Q12, Linezolid 600mg Q12, doxy 100mg Q12 - Neurology consulted - obtain CTA head and neck - aspirin 81 mg qD (will resume after MSK on 01/04) - crestor 40 mg qD - stroke follow up; SMART consult - BP goal: gradual normotension - Neurosurgery consulted, so surgical indication at this time - Delirium precautions, avoid sedating medications Assessment & Plan (01/13/2025 1:39 PM CDT): Hx NPH s/p shunt 2021, MRI conditional. Developed altered mental status characterized by confusion and lethargy at OSH. On chart review, appears to be fully functional at baseline. Had acute on chronic hyponatremia to 122, baseline upper 120s. Lytes otherwise unremarkable and euglycemic. TSH 2.75, fT4 1.44. ESR 50, CRP 317->193, ferritin 806. Noninfectious UA at OSH. EEG with diffuse slowing, no focal slowing or epileptiform changes. Ehrlichia, lyme, and anaplasma negative and s/p doxycycline 12/29-12/31. 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 AMS likely multifactorial iso hyponatremia, new infarcts, and potential infection PLAN: - Continue Ceftriaxone 2gm Q12, Linezolid 600mg Q12, doxy 100mg Q12 - Neurology consulted - obtain CTA head and neck - aspirin 81 mg qD (will resume after MSK on 01/04) - crestor 40 mg qD - stroke follow up; SMART consult - BP goal: gradual normotension - Neurosurgery consulted, so surgical indication at this time - Delirium precautions, avoid sedating medications Assessment & Plan (01/12/2025 9:38 AM CDT): Hx NPH s/p shunt 2021, MRI conditional. Developed altered mental status characterized by confusion and lethargy at OSH. On chart review, appears to be fully functional at baseline. Had acute on chronic hyponatremia to 122, baseline upper 120s. Lytes otherwise unremarkable and euglycemic. TSH 2.75, fT4 1.44. ESR 50, CRP 317->193, ferritin 806. Noninfectious UA at OSH. EEG with diffuse slowing, no focal slowing or epileptiform changes. Ehrlichia, lyme, and anaplasma negative and s/p doxycycline 12/29-12/31. 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 AMS likely multifactorial iso hyponatremia, new infarcts, and potential infection PLAN: - Continue Ceftriaxone 2gm Q12, Linezolid 600mg Q12, doxy 100mg Q12 - Neurology consulted - obtain CTA head and neck - aspirin 81 mg qD (will resume after MSK on 01/04) - crestor 40 mg qD - stroke follow up; SMART consult - BP goal: gradual normotension - Neurosurgery consulted, so surgical indication at this time - Delirium precautions, avoid sedating medications Assessment & Plan (01/12/2025 11:13 AM CDT): Hx NPH s/p shunt 2021, MRI conditional. Developed altered mental status characterized by confusion and lethargy at OSH. On chart review, appears to be fully functional at baseline. Had acute on chronic hyponatremia to 122, baseline upper 120s. Lytes otherwise unremarkable and euglycemic. TSH 2.75, fT4 1.44. ESR 50, CRP 317->193, ferritin 806. Noninfectious UA at OSH. EEG with diffuse slowing, no focal slowing or epileptiform changes. Ehrlichia, lyme, and anaplasma negative and s/p doxycycline 12/29-12/31. 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 AMS likely multifactorial iso hyponatremia, new infarcts, and potential infection 01/11 15:30 patient became altered, AOx0, confused and intermittently unable to follow directions. Neuro exam concerning for weakness R>L and AMS. Stroke workup negative, head CT negative. BG, Na wnl. Patient's symptoms improved. PLAN: - Continue Ceftriaxone 2gm Q12, Linezolid 600mg Q12, doxy 100mg Q12 - Neurology consulted - aspirin 81 mg qD (will resume after MSK on 01/04) - crestor 40 mg qD - stroke follow up; SMART consult - BP goal: gradual normotension - Neurosurgery consulted, no surgical indication at this time - Delirium precautions, avoid sedating medications Assessment & Plan (01/11/2025 8:17 AM CDT): Hx NPH s/p shunt 2021, MRI conditional. Developed altered mental status characterized by confusion and lethargy at OSH. On chart review, appears to be fully functional at baseline. Had acute on chronic hyponatremia to 122, baseline upper 120s. Lytes otherwise unremarkable and euglycemic. TSH 2.75, fT4 1.44. ESR 50, CRP 317->193, ferritin 806. Noninfectious UA at OSH. EEG with diffuse slowing, no focal slowing or epileptiform changes. Ehrlichia, lyme, and anaplasma negative and s/p doxycycline 12/29-12/31. 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 AMS likely multifactorial iso hyponatremia, new infarcts, and potential infection PLAN: - Continue Ceftriaxone 2gm Q12, Linezolid 600mg Q12, doxy 100mg Q12 - Neurology consulted - obtain CTA head and neck - aspirin 81 mg qD (will resume after [facility] on 01/04) - crestor 40 mg qD - stroke follow up; SMART consult - BP goal: gradual normotension - Neurosurgery consulted, so surgical indication at this time - Delirium precautions, avoid sedating medications Assessment & Plan (01/11/2025 8:23 AM CDT): Hx NPH s/p shunt 2021, MRI conditional. Developed altered mental status characterized by confusion and lethargy at OSH. On chart review, appears to be fully functional at baseline. Had acute on chronic hyponatremia to 122, baseline upper 120s. Lytes otherwise unremarkable and euglycemic. TSH 2.75, fT4 1.44. ESR 50, CRP 317->193, ferritin 806. Noninfectious UA at OSH. EEG with diffuse slowing, no focal slowing or epileptiform changes. Ehrlichia, lyme, and anaplasma negative and s/p doxycycline 12/29-12/31. 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 Diffuse pachymeningeal thickening of the brain and cervical spine with cervical spine subdural hemorrhage extending from C2 to C3-C4 resulting in severe canal stenosis Repeat Brain MRI 01/09 showed additional infarcts AMS likely multifactorial iso hyponatremia, new infarcts, and potential infection, AMS has since improved PLAN: - Continue Ceftriaxone 2gm Q12, Linezolid 600mg Q12, doxy 100mg Q12 - Neurology consulted - obtain CTA head and neck - aspirin 81 mg qD (will resume after [facility] on 01/04) - crestor 40 mg qD - stroke follow up; SMART consult - BP goal: gradual normotension - Neurosurgery consulted, no surgical indication at this time - Delirium precautions, avoid sedating medications Assessment & Plan (01/10/2025 11:00 AM CDT): Hx NPH s/p shunt 2021, MRI conditional. Developed altered mental status characterized by confusion and lethargy at OSH. On chart review, appears to be fully functional at baseline. Had acute on chronic hyponatremia to 122, baseline upper 120s. Lytes otherwise unremarkable and euglycemic. TSH 2.75, fT4 1.44. ESR 50, CRP 317->193, ferritin 806. Noninfectious UA at OSH. EEG with diffuse slowing, no focal slowing or epileptiform changes. Ehrlichia, lyme, and anaplasma negative and s/p doxycycline 12/29-12/31. 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 AMS likely multifactorial iso hyponatremia, new infarcts, and potential infection PLAN: - Continue Ceftriaxone 2gm Q12, Linezolid 600mg Q12, doxy 100mg Q12 - Neurology consulted - obtain CTA head and neck - aspirin 81 mg qD (will resume after [facility] on 01/04) - crestor 40 mg qD - stroke follow up; SMART consult - BP goal: gradual normotension - Neurosurgery consulted, so surgical indication at this time - Delirium precautions, avoid sedating medications Assessment & Plan (01/09/2025 11:47 AM CDT): Hx NPH s/p shunt 2021, MRI conditional. Developed altered mental status characterized by confusion and lethargy at OSH. On chart review, appears to be fully functional at baseline. Had acute on chronic hyponatremia to 122, baseline upper 120s. Lytes otherwise unremarkable and euglycemic. TSH 2.75, fT4 1.44. ESR 50, CRP 317->193, ferritin 806. Noninfectious UA at OSH. EEG with diffuse slowing, no focal slowing or epileptiform changes. Ehrlichia, lyme, and anaplasma negative and s/p doxycycline 12/29-12/31. 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 AMS likely multifactorial iso hyponatremia, new infarcts, and potential infection PLAN: - Continue Ceftriaxone 2gm Q12, Linezolid 600mg Q12, doxy 100mg Q12 - Neurology consulted - obtain CTA head and neck - aspirin 81 mg qD (will resume after [facility] on 01/04) - crestor 40 mg qD - stroke follow up; SMART consult - BP goal: gradual normotension - Neurosurgery consulted - Delirium precautions, avoid sedating medications - Patient not taking oral BP meds, suspected new stroke in setting of new large mitral vegetation. Gradual normotension. PRN IV hydralazine 10mg if systolic >200 -Swallow eval for PO meds now patient is near baseline Assessment & Plan (01/08/2025 9:39 AM CDT): Hx NPH s/p shunt 2021, MRI conditional. Developed altered mental status characterized by confusion and lethargy at OSH. On chart review, appears to be fully functional at baseline. Had acute on chronic hyponatremia to 122, baseline upper 120s. Lytes otherwise unremarkable and euglycemic. TSH 2.75, fT4 1.44. ESR 50, CRP 317->193, ferritin 806. Noninfectious UA at OSH. EEG with diffuse slowing, no focal slowing or epileptiform changes. Ehrlichia, lyme, and anaplasma negative and s/p doxycycline 12/29-12/31. 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 AMS likely multifactorial iso hyponatremia, new infarcts, and potential infection PLAN: - Continue Ceftriaxone 2gm Q12, Linezolid 600mg Q12, doxy 100mg Q12 - Neurology consulted - obtain CTA head and neck - aspirin 81 mg qD (will resume after [facility] on 01/04) - crestor 40 mg qD - stroke follow up; SMART consult - BP goal: gradual normotension - Neurosurgery consulted - Delirium precautions, avoid sedating medications - Patient not taking oral BP meds, suspected new stroke in setting of new large mitral vegetation. Permissive hypertension. PRN IV hydralazine 10mg if systolic >200 Assessment & Plan (01/07/2025 11:18 AM CDT): Hx NPH s/p shunt 2021, MRI conditional. Developed altered mental status characterized by confusion and lethargy at OSH. On chart review, appears to be fully functional at baseline. Had acute on chronic hyponatremia to 122, baseline upper 120s. Lytes otherwise unremarkable and euglycemic. TSH 2.75, fT4 1.44. ESR 50, CRP 317->193, ferritin 806. Noninfectious UA at OSH. EEG with diffuse slowing, no focal slowing or epileptiform changes. Ehrlichia, lyme, and anaplasma negative and s/p doxycycline 12/29-12/31. 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 AMS likely multifactorial iso hyponatremia, new infarcts, and potential infection PLAN: - Started empirical meningitis treatment - cefepime, vanc, ampicillin, and acyclovir - Neurology consulted - obtain CTA head and neck - aspirin 81 mg qD (will resume after [facility] on 01/04) - crestor 40 mg qD - JANELLE - will likely need loop monitor on discharge - stroke follow up; SMART consult - BP goal: gradual normotension - Neurosurgery consulted - Delirium precautions, avoid sedating medications Assessment & Plan (01/07/2025 3:48 PM CDT): Hx NPH s/p shunt 2021, MRI conditional. Developed altered mental status characterized by confusion and lethargy at OSH. On chart review, appears to be fully functional at baseline. Had acute on chronic hyponatremia to 122, baseline upper 120s. Lytes otherwise unremarkable and euglycemic. TSH 2.75, fT4 1.44. ESR 50, CRP 317->193, ferritin 806. Noninfectious UA at OSH. EEG with diffuse slowing, no focal slowing or epileptiform changes. Ehrlichia, lyme, and anaplasma negative and s/p doxycycline 12/29-12/31. 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 AMS likely multifactorial iso hyponatremia, new infarcts, and potential infection PLAN: - ABX per Id linezolid 600mg BID, ceftriaxone 2g BID, Doxycycline 100mg BID - Neurology consulted - obtain CTA head and neck - aspirin 81 mg qD (will resume after [facility] on 01/04) - crestor 40 mg qD - will likely need loop monitor on discharge - stroke follow up; SMART consult - BP goal: gradual normotension - Neurosurgery consulted - Delirium precautions, avoid sedating medications -JANELLE performed showing large mitral valve vegetation, concern for storke with new AMS -CT surgery consulted Assessment & Plan (01/06/2025 9:01 AM CDT): Hx NPH s/p shunt 2021, MRI conditional. Developed altered mental status characterized by confusion and lethargy at OSH. On chart review, appears to be fully functional at baseline. Had acute on chronic hyponatremia to 122, baseline upper 120s. Lytes otherwise unremarkable and euglycemic. TSH 2.75, fT4 1.44. ESR 50, CRP 317->193, ferritin 806. Noninfectious UA at OSH. EEG with diffuse slowing, no focal slowing or epileptiform changes. Ehrlichia, lyme, and anaplasma negative and s/p doxycycline 12/29-12/31. 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 AMS likely multifactorial iso hyponatremia, new infarcts, and potential infection PLAN: - Started empirical meningitis treatment - cefepime, vanc, ampicillin, and acyclovir - Neurology consulted - obtain CTA head and neck - aspirin 81 mg qD (will resume after [facility] on 01/04) - crestor 40 mg qD - JANELLE - will likely need loop monitor on discharge - stroke follow up; SMART consult - BP goal: gradual normotension - Neurosurgery consulted - Delirium precautions, avoid sedating medications Assessment & Plan (01/06/2025 2:43 PM CDT): Hx NPH s/p shunt 2021, MRI conditional. Developed altered mental status characterized by confusion and lethargy at OSH. On chart review, appears to be fully functional at baseline. Had acute on chronic hyponatremia to 122, baseline upper 120s. Lytes otherwise unremarkable and euglycemic. TSH 2.75, fT4 1.44. ESR 50, CRP 317->193, ferritin 806. Noninfectious UA at OSH. EEG with diffuse slowing, no focal slowing or epileptiform changes. Ehrlichia, lyme, and anaplasma negative and s/p doxycycline 12/29-12/31. 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 AMS likely multifactorial iso hyponatremia, new infarcts, and potential infection 01/05, patient mental status deteriorated, AOx0, not following directions. CR increased to 2.22 vanc level 39 PLAN: - Vanc DC'd, repeat vanc level tomorrow AM -Repeat brain MRI -Meropenem 1g q12 -Renal consult for rising CR in setting of AMS - Neurology consulted - obtain CTA head and neck - aspirin 81 mg qD (will resume after [facility] on 01/04) - crestor 40 mg qD - JANELLE tomorrow, NPO at midnight - will likely need loop monitor on discharge - stroke follow up; SMART consult - BP goal: gradual normotension - Neurosurgery consulted for [employer] shunt fluid analysis - Delirium precautions, avoid sedating medications - DC gabapentin 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 She presented with hyponatremia to 122, her baseline is upper 120s. Lytes otherwise unremarkable and euglycemic. TSH 2.75, fT4 1.44. ESR 50, CRP 317->193, ferritin 806. Noninfectious UA. EEG with diffuse slowing, no focal slowing or epileptiform changes. Ehrlichia, lyme, and anaplasma negative and s/p doxycycline 12/29-12/31. Brain MRI on 01/01 was remarkable for multiple punctate acute infarcts of the right internal capsule, right centrum semiovale bowel, left parietal white matter, and left cerebellar hemisphere involving multiple vascular territories, raising suspicion for an embolic source. Diffuse pachymeningeal thickening of the brain and cervical spine with cervical spine subdural hemorrhage extending from C2 to C3-C4 resulting in severe canal stenosis. MRI Spine thoracic and lumbar showed discitis and osteomyelitis at T1-T2 and T12-L1. Fluid filled subdural space possibly an empyema spinal infection. Initially were concerned for meningoencephalitic process and brain MRI revealed multifocal punctate infarcts. The infarcts are likely occurring within the prior 3-4 days (did not all occur on the day, varying ages). Given its multivascular territories, etiology may be a septic emboli from cardiac source. Multifocal infarcts are also likely contributing to her altered mental status, however AMS is likely multifactorial in the setting of hyponatremia, new infarcts, and possible meningitis/infection spread. Her WBCs are holding stable at 11.79. Blood culture has no growths as of date. PLAN: - Continue empirical meningitis treatment, per neurology and ID consults: - Current abx regimen: - Discontinue Acyclovir and Ampicillin - Continue Cefepime 2gIV q12h - Continue Vancomycin 15mg/kg IV q12h - Bone biopsy with [facility] IR yesterday -follow up cultures - JANELLE for suspected septic emboli tentatively scheduled for 01/07 - Neurology consulted - aspirin 81 mg - crestor 40 mg daily - Pt will need loop monitor on discharge pending JANELLE results - stroke follow up - BP goal: gradual normotension - Neurosurgery consulted: discussion of feasibility of vp software engineering shunt fluid sampling. - Delirium precautions, avoid sedating medications - Ophthalmology consulted for acute visual changes/floaters and evaluation for possible infectious spread to eyes, no intervention at this time. 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 She presented with hyponatremia to 122, her baseline is upper 120s. Lytes otherwise unremarkable and euglycemic. TSH 2.75, fT4 1.44. ESR 50, CRP 317->193, ferritin 806. Noninfectious UA. EEG with diffuse slowing, no focal slowing or epileptiform changes. Ehrlichia, lyme, and anaplasma negative and s/p doxycycline 12/29-12/31. Brain MRI on 01/01 was remarkable for multiple punctate acute infarcts of the right internal capsule, right centrum semiovale bowel, left parietal white matter, and left cerebellar hemisphere involving multiple vascular territories, raising suspicion for an embolic source. Diffuse pachymeningeal thickening of the brain and cervical spine with cervical spine subdural hemorrhage extending from C2 to C3-C4 resulting in severe canal stenosis. MRI Spine thoracic and lumbar showed discitis and osteomyelitis at T1-T2 and T12-L1. Fluid filled subdural space possibly an empyema spinal infection. Initially were concerned for meningoencephalitic process and brain MRI revealed multifocal punctate infarcts. The infarcts are likely occurring within the prior 3-4 days (did not all occur on the day, varying ages). Given its multivascular territories, etiology may be a septic emboli from cardiac source. Multifocal infarcts are also likely contributing to her altered mental status, however AMS is likely multifactorial in the setting of hyponatremia, new infarcts, and possible meningitis/infection spread. Her WBCs are holding stable at 11.79. Blood culture has no growths as of date. PLAN: - Continue empirical meningitis treatment, per neurology and ID consults: - Current abx regimen: - Acyclovir 10mg/kg q12h - Ampicillin 2gIV q6h - Cefepime 2gIV q12h - Vancomycin 15mg/kg IV q12h - May consider discontinuing ampicillin in next 48 hrs if blood culture does not grow Listeria - Bone biopsy with [facility] IR today - IR will not perform LP given risk of subdural empyema seeding CSF space - JANELLE for suspected septic emboli tentatively scheduled for 01/07 - Neurology consulted - aspirin 81 mg (held, will follow up post bone biopsy) - crestor 40 mg daily - Pt will need loop monitor on discharge - stroke follow up - BP goal: gradual normotension - Neurosurgery consulted: no surgical interventions at this time, spine is stable, no activity restrictions. - Delirium precautions, avoid sedating medications - Ophthalmology consulted for acute visual changes/floaters and evaluation for possible infectious spread to eyes Assessment & Plan (01/04/2025 4:33 PM CDT): Hx NPH s/p shunt 2021, MRI conditional. Developed altered mental status characterized by confusion and lethargy at OSH. On chart review, appears to be fully functional at baseline. Had acute on chronic hyponatremia to 122, baseline upper 120s. Lytes otherwise unremarkable and euglycemic. TSH 2.75, fT4 1.44. ESR 50, CRP 317->193, ferritin 806. Noninfectious UA at OSH. EEG with diffuse slowing, no focal slowing or epileptiform changes. Ehrlichia, lyme, and anaplasma negative and s/p doxycycline 12/29-12/31. 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 AMS likely multifactorial iso hyponatremia, new infarcts, and potential infection PLAN: - Started empirical meningitis treatment - cefepime, vanc, ampicillin, and acyclovir - Neurology consulted - obtain CTA head and neck - aspirin 81 mg qD (will resume after [facility] on 01/04) - crestor 40 mg qD - JANELLE - will likely need loop monitor on discharge - stroke follow up; SMART consult - BP goal: gradual normotension - Neurosurgery consulted - Delirium precautions, avoid sedating medications Assessment & Plan (01/03/2025 3:40 PM CDT): Hx NPH s/p shunt 2021, MRI conditional. Developed altered mental status characterized by confusion and lethargy at OSH. Fully functional at baseline. Had acute on chronic hyponatremia to 122, baseline upper 120s. Lytes otherwise unremarkable and euglycemic. TSH 2.75, fT4 1.44. ESR 50, CRP 317->193, ferritin 806. Noninfectious UA at OSH. EEG with diffuse slowing, no focal slowing or epileptiform changes. Ehrlichia, lyme, and anaplasma negative and s/p doxycycline 12/29-12/31. 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 Diffuse pachymeningeal thickening of the brain and cervical spine with cervical spine subdural hemorrhage extending from C2 to C3-C4 resulting in severe canal stenosis MRI Spine Thoracic and lumbar showed discitis and osteomyelitis at T1-T2 and T12-L1. Fluid filled subdural space possibly an empyema spinal infection. PLAN: - Started empirical meningitis treatment - cefepime, vanc, ampicillin, and acyclovir -Bone biopsy tomorrow with [facility] IR, NPO midnight - JANELLE for suspected septic emboli tentatively scheduled for 01/07. Repeat blood cultures - Neurology consulted - aspirin 325 mg Daily (will follow up post bone biopsy) - crestor 40 mg Daily - will likely need loop monitor on discharge - stroke follow up - BP goal: gradual normotension - Neurosurgery consulted - No surgical interventions at this time, spine is stable, no activity restrictions. -ID consulted - Delirium precautions, avoid sedating medications Assessment & Plan (01/03/2025 9:10 AM CDT): Hx NPH s/p shunt 2021, MRI conditional. Developed altered mental status characterized by confusion and lethargy at OSH. On chart review, appears to be fully functional at baseline. Had acute on chronic hyponatremia to 122, baseline upper 120s. Lytes otherwise unremarkable and euglycemic. TSH 2.75, fT4 1.44. ESR 50, CRP 317->193, ferritin 806. Noninfectious UA at OSH. EEG with diffuse slowing, no focal slowing or epileptiform changes. Ehrlichia, lyme, and anaplasma negative and s/p doxycycline 12/29-12/31. 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 AMS likely multifactorial iso hyponatremia, new infarcts, and potential infection PLAN: - Started empirical meningitis treatment - cefepime, vanc, ampicillin, and acyclovir - Neurology consulted - obtain CTA head and neck - aspirin 325 mg qD (will resume after LP on 01/03) - crestor 40 mg qD - no need for repeat TTE - will likely need loop monitor on discharge - stroke follow up - BP goal: gradual normotension - Neurosurgery consulted - Recommend MRI lumbar and thoracic spine - Plan for LP on 01/03 - Delirium precautions, avoid sedating medications Assessment & Plan (01/02/2025 1:56 PM CDT): Hx NPH s/p shunt 2021, MRI conditional. Developed altered mental status characterized by confusion and lethargy at OSH. On chart review, appears to be fully functional at baseline. Had acute on chronic hyponatremia to 122, baseline upper 120s. Lytes otherwise unremarkable and euglycemic. TSH 2.75, fT4 1.44. ESR 50, CRP 317->193, ferritin 806. Noninfectious UA at OSH. EEG with diffuse slowing, no focal slowing or epileptiform changes. Ehrlichia, lyme, and anaplasma negative and s/p doxycycline 12/29-12/31. 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 AMS likely multifactorial iso hyponatremia, new infarcts, and potential infection PLAN: - Started empirical meningitis treatment - cefepime, vanc, ampicillin, and acyclovir - Neurology consulted - obtain CTA head and neck - aspirin 325 mg qD (will resume after LP on 01/03) - crestor 40 mg qD - no need for repeat TTE - will likely need loop monitor on discharge - stroke follow up - BP goal: gradual normotension - Neurosurgery consulted - Recommend MRI lumbar and thoracic spine - Plan for LP on 01/03 - Delirium precautions, avoid sedating medications Assessment & Plan (01/02/2025 11:51 AM CDT): Hx NPH s/p shunt 2021, MRI conditional. Developed altered mental status characterized by confusion and lethargy at OSH. On chart review, appears to be fully functional at baseline. Had acute on chronic hyponatremia to 122, now at baseline upper 120s. Lytes otherwise unremarkable and euglycemic. TSH 2.75, fT4 1.44. ESR 50, CRP 317->193, ferritin 806. Noninfectious UA at OSH. CTH with no acute intracranial abnormalities. MRI unable to be obtained at OSH due to shunt. LP with minimal fluid obtained, neutrophils 37, lymphs 2, monos 4. EEG with diffuse slowing, no focal slowing or epileptiform changes. Ehrlichia, lyme, and anaplasma negative and s/p doxycycline 12/29-12/31. Concern for inflammatory etiology given elevated inflammatory markers and underlying autoimmune disease, and new onset ?SIADH as below is also concerning for neurological involvement beyond TME. Likely does also have a component of TME given admission for back pain managed with opioids and diffuse slowing on EEG. Likely also contribution of hyponatremia, though this is chronic and likely does not account for an acute change in status. Shunt dysfunction is also on the differential, though this is also less likely as there is no ventriculomegaly seen on her HCT. Lower c/f meningitis given non-toxic appearance, acute onset without infectious sx, though as above LP is difficult to interpret. She reports neck pain, but this is more consistent with MSK etiology given paraspinal tenderness to palpation. Nutritional etiology is unlikely given acute nature of her mental status change, and she is on methotrexate but taking folate supplementation; B12 was normal in September. Plan: - c/s neurology - f/u bMRI, shunt series - B12 wnl, f/u folate - consider repeat LP - delirium precautions, avoid sedating medications - call daughter for collateral Assessment & Plan (01/01/2025 8:31 AM CDT): Hx NPH s/p shunt 2021, MRI conditional. Developed altered mental status characterized by confusion and lethargy at OSH. On chart review, appears to be fully functional at baseline. Had acute on chronic hyponatremia to 122, now at baseline upper 120s. Lytes otherwise unremarkable and euglycemic. TSH 2.75, fT4 1.44. ESR 50, CRP 317->193, ferritin 806. Noninfectious UA at OSH. CTH with no acute intracranial abnormalities. MRI unable to be obtained at OSH due to shunt. LP with minimal fluid obtained, neutrophils 37, lymphs 2, monos 4. EEG with diffuse slowing, no focal slowing or epileptiform changes. Ehrlichia, lyme, and anaplasma negative and s/p doxycycline 12/29-12/31. Concern for inflammatory etiology given elevated inflammatory markers and underlying autoimmune disease, and new onset ?SIADH as below is also concerning for neurological involvement beyond TME. Likely does also have a component of TME given admission for back pain managed with opioids and diffuse slowing on EEG. Likely also contribution of hyponatremia, though this is chronic and likely does not account for an acute change in status. Shunt dysfunction is also on the differential, though this is also less likely as there is no ventriculomegaly seen on her HCT. Lower c/f meningitis given non-toxic appearance, acute onset without infectious sx, though as above LP is difficult to interpret. She reports neck pain, but this is more consistent with MSK etiology given paraspinal tenderness to palpation. Nutritional etiology is unlikely given acute nature of her mental status change, and she is on methotrexate but taking folate supplementation; B12 was normal in September. Plan: - c/s neurology - f/u bMRI, shunt series - B12 wnl, f/u folate - consider repeat LP - delirium precautions, avoid sedating medications - call daughter for collateral Chronic low back pain 12/27/20242024 Assessment & Plan (01/17/2025 7:27 AM CDT): Chronic back pain on meloxicam 15mg daily. - hold meloxicam 2/2 AMS - gabapentin 100mg TID - tylenol and lidocaine patches PRN Assessment & Plan (01/16/2025 11:44 AM CDT): Chronic back pain on meloxicam 15mg daily. - hold meloxicam 2/2 AMS - gabapentin 100mg TID - tylenol and lidocaine patches PRN Assessment & Plan (01/15/2025 6:46 AM CDT): Chronic back pain on meloxicam 15mg daily. - hold meloxicam 2/2 AMS - gabapentin 100mg TID - tylenol and lidocaine patches PRN Assessment & Plan (01/14/2025 10:44 AM CDT): Chronic back pain on meloxicam 15mg daily. - hold meloxicam 2/2 AMS - gabapentin 100mg TID - tylenol and lidocaine patches PRN Assessment & Plan (01/14/2025 6:47 AM CDT): Chronic back pain on meloxicam 15mg daily. - hold meloxicam 2/2 AMS - gabapentin 100mg TID - tylenol and lidocaine patches PRN Assessment & Plan (01/13/2025 6:50 AM CDT): Chronic back pain on meloxicam 15mg daily. - hold meloxicam 2/2 AMS - gabapentin 100mg TID - tylenol and lidocaine patches PRN Assessment & Plan (01/12/2025 9:38 AM CDT): Chronic back pain on meloxicam 15mg daily. - hold meloxicam 2/2 AMS - gabapentin 100mg TID - tylenol and lidocaine patches PRN Assessment & Plan (01/12/2025 7:08 AM CDT): Chronic back pain on meloxicam 15mg daily. - hold meloxicam 2/2 AMS - gabapentin 100mg TID - tylenol and lidocaine patches PRN Assessment & Plan (01/11/2025 8:17 AM CDT): Chronic back pain on meloxicam 15mg daily. - hold meloxicam 2/2 AMS - gabapentin 100mg TID - tylenol and lidocaine patches PRN Assessment & Plan (01/11/2025 6:48 AM CDT): Chronic back pain on meloxicam 15mg daily. - hold meloxicam 2/2 AMS - gabapentin 100mg TID - tylenol and lidocaine patches PRN Assessment & Plan (01/10/2025 6:47 AM CDT): Chronic back pain on meloxicam 15mg daily. - hold meloxicam 2/2 AMS - gabapentin 100mg TID - tylenol and lidocaine patches PRN Assessment & Plan (01/09/2025 6:44 AM CDT): Chronic back pain on meloxicam 15mg daily. - hold meloxicam 2/2 AMS - gabapentin 100mg TID - tylenol and lidocaine patches PRN Assessment & Plan (01/08/2025 7:02 AM CDT): Chronic back pain on meloxicam 15mg daily. - hold meloxicam 2/2 AMS - gabapentin 100mg TID - tylenol and lidocaine patches PRN Assessment & Plan (01/07/2025 11:18 AM CDT): Chronic back pain on meloxicam 15mg daily. - hold meloxicam 2/2 AMS - gabapentin 100mg TID - tylenol and lidocaine patches PRN Assessment & Plan (01/07/2025 7:00 AM CDT): Chronic back pain on meloxicam 15mg daily. - hold meloxicam 2/2 AMS - gabapentin 100mg TID - tylenol and lidocaine patches PRN Assessment & Plan (01/06/2025 9:01 AM CDT): Chronic back pain on meloxicam 15mg daily. - hold meloxicam 2/2 AMS - gabapentin 100mg TID - tylenol and lidocaine patches PRN Assessment & Plan (01/06/2025 6:54 AM CDT): Chronic back pain on meloxicam 15mg daily. - hold meloxicam 2/2 AMS - gabapentin 100mg TID - tylenol and lidocaine patches PRN Assessment & Plan (01/05/2025 2:45 PM CDT): Chronic back pain on meloxicam 15mg daily. Ms. Zaldivar is continuing to experience neck pain and aching along her back throughout this admission limiting her movement. PLAN: - start scheduled acetominophen 1000mg Q8hrs - hold meloxicam 2/2 AMS - gabapentin 100mg TID - lidocaine patches PRN Assessment & Plan (01/04/2025 11:14 AM CDT): Chronic back pain on meloxicam 15mg daily. Ms. Zaldivar is continuing to experience neck pain and aching along her back throughout this admission limiting her movement. PLAN: - start scheduled acetominophen 650mg Q8hrs - hold meloxicam 2/2 AMS - gabapentin 100mg TID - lidocaine patches PRN Assessment & Plan (01/04/2025 8:05 AM CDT): Chronic back pain on meloxicam 15mg daily. - hold meloxicam 2/2 AMS - gabapentin 100mg TID - tylenol and lidocaine patches PRN Assessment & Plan (01/03/2025 3:40 PM CDT): Chronic back pain on meloxicam 15mg daily. - hold meloxicam 2/2 AMS - gabapentin 100mg TID - tylenol and lidocaine patches PRN Assessment & Plan (01/03/2025 9:10 AM CDT): Chronic back pain on meloxicam 15mg daily. - hold meloxicam 2/2 AMS - gabapentin 100mg TID - tylenol and lidocaine patches PRN Assessment & Plan (01/02/2025 1:56 PM CDT): Chronic back pain on meloxicam 15mg daily. - hold meloxicam 2/2 AMS - gabapentin 100mg TID - tylenol and lidocaine patches PRN Assessment & Plan (01/02/2025 11:51 AM CDT): Chronic back pain on meloxicam 15mg daily. Also reporting neck pain most consistent with MSK tenderness this admission. - hold meloxicam 2/2 AMS - gabapentin 100mg TID - tylenol and lidocaine patches PRN Assessment & Plan (01/01/2025 3:39 AM CDT): Chronic back pain on meloxicam 15mg daily. Also reporting neck pain most consistent with MSK tenderness this admission. - hold meloxicam 2/2 AMS - gabapentin 100mg TID - tylenol and lidocaine patches PRN Hyponatremia 02/08/2022 01/29/2025 Assessment & Plan (01/27/2025 5:35 PM CDT): BMP overnight - Na 127. Tolvaptan given. Repeat Na 130. Continue fluid restriction Monitor daily BMP Assessment & Plan (01/17/2025 7:27 AM CDT): Chronically hyponatremic going back to 2012, typically in the upper 120s and low 130s. Hyponatremic with benjie 122 this admission, which initially improved with fluid restriction. Urine Na <20, urine osmolality 448-661. Plasma osmolality 260 on arrival with urine Na 123 and urine osmolality 421. Initially thought to be due to long- term HCTZ, which has been discontinued, but her labs on arrival are concerning for SIADH. Concerning for acute neurological insult, possibly related to infection or new finding of acute stroke. Suspect worsening on 01/02 due to increased IV fluids when giving abx for meningitis treatment. Na correcting with fluids, currently 134 PLAN: - [facility] Assessment & Plan (01/16/2025 8:15 AM CDT): Chronically hyponatremic going back to 2012, typically in the upper 120s and low 130s. Hyponatremic with benjie 122 this admission, which initially improved with fluid restriction. Urine Na <20, urine osmolality 448-661. Plasma osmolality 260 on arrival with urine Na 123 and urine osmolality 421. Initially thought to be due to long- term HCTZ, which has been discontinued, but her labs on arrival are concerning for SIADH. Concerning for acute neurological insult, possibly related to infection or new finding of acute stroke. Suspect worsening on 01/02 due to increased IV fluids when giving abx for meningitis treatment. Na correcting with fluids, currently 134 PLAN: - [facility] Assessment & Plan (01/15/2025 6:46 AM CDT): Chronically hyponatremic going back to 2012, typically in the upper 120s and low 130s. Hyponatremic with benjie 122 this admission, which initially improved with fluid restriction. Urine Na <20, urine osmolality 448-661. Plasma osmolality 260 on arrival with urine Na 123 and urine osmolality 421. Initially thought to be due to long- term HCTZ, which has been discontinued, but her labs on arrival are concerning for SIADH. Concerning for acute neurological insult, possibly related to infection or new finding of acute stroke. Suspect worsening on 01/02 due to increased IV fluids when giving abx for meningitis treatment. Na correcting with fluids, currently 134 PLAN: - [facility] Assessment & Plan (01/14/2025 10:44 AM CDT): Chronically hyponatremic going back to 2012, typically in the upper 120s and low 130s. Hyponatremic with benjie 122 this admission, which initially improved with fluid restriction. Urine Na <20, urine osmolality 448-661. Plasma osmolality 260 on arrival with urine Na 123 and urine osmolality 421. Initially thought to be due to long- term HCTZ, which has been discontinued, but her labs on arrival are concerning for SIADH. Concerning for acute neurological insult, possibly related to infection or new finding of acute stroke. Suspect worsening on 01/02 due to increased IV fluids when giving abx for meningitis treatment. Na correcting with fluids, currently 134 PLAN: - [facility] Assessment & Plan (01/14/2025 6:47 AM CDT): Chronically hyponatremic going back to 2012, typically in the upper 120s and low 130s. Hyponatremic with benjie 122 this admission, which initially improved with fluid restriction. Urine Na <20, urine osmolality 448-661. Plasma osmolality 260 on arrival with urine Na 123 and urine osmolality 421. Initially thought to be due to long- term HCTZ, which has been discontinued, but her labs on arrival are concerning for SIADH. Concerning for acute neurological insult, possibly related to infection or new finding of acute stroke. Suspect worsening on 01/02 due to increased IV fluids when giving abx for meningitis treatment. Na correcting with fluids, currently 134 PLAN: - [facility] BMP Assessment & Plan (01/13/2025 6:50 AM CDT): Chronically hyponatremic going back to 2012, typically in the upper 120s and low 130s. Hyponatremic with benjie 122 this admission, which initially improved with fluid restriction. Urine Na <20, urine osmolality 448-661. Plasma osmolality 260 on arrival with urine Na 123 and urine osmolality 421. Initially thought to be due to long- term HCTZ, which has been discontinued, but her labs on arrival are concerning for SIADH. Concerning for acute neurological insult, possibly related to infection or new finding of acute stroke. Suspect worsening on 01/02 due to increased IV fluids when giving abx for meningitis treatment. Na correcting with fluids, currently 134 PLAN: - [facility] Assessment & Plan (01/12/2025 9:38 AM CDT): Chronically hyponatremic going back to 2012, typically in the upper 120s and low 130s. Hyponatremic with benjie 122 this admission, which initially improved with fluid restriction. Urine Na <20, urine osmolality 448-661. Plasma osmolality 260 on arrival with urine Na 123 and urine osmolality 421. Initially thought to be due to long- term HCTZ, which has been discontinued, but her labs on arrival are concerning for SIADH. Concerning for acute neurological insult, possibly related to infection or new finding of acute stroke. Suspect worsening on 01/02 due to increased IV fluids when giving abx for meningitis treatment. Na correcting with fluids, currently 134 PLAN: - [facility] BMP Assessment & Plan (01/12/2025 11:13 AM CDT): Chronically hyponatremic going back to 2012, typically in the upper 120s and low 130s. Hyponatremic with benjie 122 this admission, which initially improved with fluid restriction. Urine Na <20, urine osmolality 448-661. Plasma osmolality 260 on arrival with urine Na 123 and urine osmolality 421. Initially thought to be due to long- term HCTZ, which has been discontinued, but her labs on arrival are concerning for SIADH. Concerning for acute neurological insult, possibly related to infection or new finding of acute stroke. Suspect worsening on 01/02 due to increased IV fluids when giving abx for meningitis treatment. Na correcting with fluids, currently 134. PLAN: - [facility] BMP - encourage oral intake Assessment & Plan (01/11/2025 8:17 AM CDT): Chronically hyponatremic going back to 2012, typically in the upper 120s and low 130s. Hyponatremic with benjie 122 this admission, which initially improved with fluid restriction. Urine Na <20, urine osmolality 448-661. Plasma osmolality 260 on arrival with urine Na 123 and urine osmolality 421. Initially thought to be due to long- term HCTZ, which has been discontinued, but her labs on arrival are concerning for SIADH. Concerning for acute neurological insult, possibly related to infection or new finding of acute stroke. Suspect worsening on 01/02 due to increased IV fluids when giving abx for meningitis treatment. Na correcting with fluids, currently 134 PLAN: - [facility] BMP Assessment & Plan (01/11/2025 6:48 AM CDT): Chronically hyponatremic going back to 2012, typically in the upper 120s and low 130s. Hyponatremic with benjie 122 this admission, which initially improved with fluid restriction. Urine Na <20, urine osmolality 448-661. Plasma osmolality 260 on arrival with urine Na 123 and urine osmolality 421. Initially thought to be due to long- term HCTZ, which has been discontinued, but her labs on arrival are concerning for SIADH. Concerning for acute neurological insult, possibly related to infection or new finding of acute stroke. Suspect worsening on 01/02 due to increased IV fluids when giving abx for meningitis treatment. Na correcting with fluids, currently 134 PLAN: - [facility] BMP Assessment & Plan (01/10/2025 11:00 AM CDT): Chronically hyponatremic going back to 2012, typically in the upper 120s and low 130s. Hyponatremic with benjie 122 this admission, which initially improved with fluid restriction. Urine Na <20, urine osmolality 448-661. Plasma osmolality 260 on arrival with urine Na 123 and urine osmolality 421. Initially thought to be due to long- term HCTZ, which has been discontinued, but her labs on arrival are concerning for SIADH. Concerning for acute neurological insult, possibly related to infection or new finding of acute stroke. Suspect worsening on 01/02 due to increased IV fluids when giving abx for meningitis treatment. Na correcting with fluids, currently 134 PLAN: - [facility] BMP Assessment & Plan (01/09/2025 6:44 AM CDT): Chronically hyponatremic going back to 2012, typically in the upper 120s and low 130s. Hyponatremic with benjie 122 this admission, which initially improved with fluid restriction. Urine Na <20, urine osmolality 448-661. Plasma osmolality 260 on arrival with urine Na 123 and urine osmolality 421. Initially thought to be due to long- term HCTZ, which has been discontinued, but her labs on arrival are concerning for SIADH. Concerning for acute neurological insult, possibly related to infection or new finding of acute stroke. Suspect worsening on 01/02 due to increased IV fluids when giving abx for meningitis treatment. Na correcting with fluids, currently 134 PLAN: - [facility] -Discontinue IVMF for elevated pressures Assessment & Plan (01/08/2025 7:58 AM CDT): Chronically hyponatremic going back to 2012, typically in the upper 120s and low 130s. Hyponatremic with benjie 122 this admission, which initially improved with fluid restriction. Urine Na <20, urine osmolality 448-661. Plasma osmolality 260 on arrival with urine Na 123 and urine osmolality 421. Initially thought to be due to long- term HCTZ, which has been discontinued, but her labs on arrival are concerning for SIADH. Concerning for acute neurological insult, possibly related to infection or new finding of acute stroke. Suspect worsening on 01/02 due to increased IV fluids when giving abx for meningitis treatment. Na correcting with fluids, currently 134 PLAN: - [facility] -Discontinue IVMF for elevated pressures Assessment & Plan (01/07/2025 11:18 AM CDT): Chronically hyponatremic going back to 2012, typically in the upper 120s and low 130s. Hyponatremic with benjie 122 this admission, which initially improved with fluid restriction. Urine Na <20, urine osmolality 448-661. Plasma osmolality 260 on arrival with urine Na 123 and urine osmolality 421. Initially thought to be due to long- term HCTZ, which has been discontinued, but her labs on arrival are concerning for SIADH. Concerning for acute neurological insult, possibly related to infection or new finding of acute stroke. Suspect worsening on 01/02 due to increased IV fluids when giving abx for meningitis treatment. PLAN: - Continue salt tablets, 1 g TID - Will fluid restrict to 2 L - F/u CMP Assessment & Plan (01/07/2025 3:48 PM CDT): Chronically hyponatremic going back to 2012, typically in the upper 120s and low 130s. Hyponatremic with benjie 122 this admission, which initially improved with fluid restriction. Urine Na <20, urine osmolality 448-661. Plasma osmolality 260 on arrival with urine Na 123 and urine osmolality 421. Initially thought to be due to long- term HCTZ, which has been discontinued, but her labs on arrival are concerning for SIADH. Concerning for acute neurological insult, possibly related to infection or new finding of acute stroke. Suspect worsening on 01/02 due to increased IV fluids when giving abx for meningitis treatment. PLAN: -Patinet unable to placve NG tube -Continue IVMF LR 100ml/hr -BID Na check, most recent 135 - F/u CMP Assessment & Plan (01/06/2025 9:01 AM CDT): Chronically hyponatremic going back to 2012, typically in the upper 120s and low 130s. Hyponatremic with benjie 122 this admission, which initially improved with fluid restriction. Urine Na <20, urine osmolality 448-661. Plasma osmolality 260 on arrival with urine Na 123 and urine osmolality 421. Initially thought to be due to long- term HCTZ, which has been discontinued, but her labs on arrival are concerning for SIADH. Concerning for acute neurological insult, possibly related to infection or new finding of acute stroke. Suspect worsening on 01/02 due to increased IV fluids when giving abx for meningitis treatment. PLAN: - Continue salt tablets, 1 g TID - Will fluid restrict to 2 L - F/u CMP Assessment & Plan (01/06/2025 2:07 PM CDT): Chronically hyponatremic going back to 2012, typically in the upper 120s and low 130s. Hyponatremic with benjie 122 this admission, which initially improved with fluid restriction. Urine Na <20, urine osmolality 448-661. Plasma osmolality 260 on arrival with urine Na 123 and urine osmolality 421. Initially thought to be due to long- term HCTZ, which has been discontinued, but her labs on arrival are concerning for SIADH. Concerning for acute neurological insult, possibly related to infection or new finding of acute stroke. Suspect worsening on 01/02 due to increased IV fluids when giving abx for meningitis treatment. PLAN: - IVMf per nephro - CTM CMP, Na levels Assessment & Plan (01/05/2025 2:45 PM CDT): Chronically hyponatremic with Na levels typically in the upper 120s and low 130s. Hyponatremic with benjie 122 this admission, which initially improved with fluid restriction. Urine Na <20, urine osmolality 448-661, plasma osmolality 260 on arrival with urine Na 123 and urine osmolality 421. Findings are concerning for SIADH and possible neurological insult, related to infection or stroke. Sodium levels improved yesterday 01/03 from 126 up to 132, however Pt still reports feeling dry and extremely thirsty. PLAN: - Continue salt tablets, decrease to 1 g TID from 2 g prior - Reduce Pt fluid restriction to 2 L - F/u CMP Assessment & Plan (01/04/2025 11:14 AM CDT): Chronically hyponatremic with Na levels typically in the upper 120s and low 130s. Hyponatremic with benjie 122 this admission, which initially improved with fluid restriction. Urine Na <20, urine osmolality 448-661, plasma osmolality 260 on arrival with urine Na 123 and urine osmolality 421. Findings are concerning for SIADH and possible neurological insult, related to infection or stroke. Sodium levels improved yesterday 01/03 from 126 up to 132, however Pt still reports feeling dry and extremely thirsty. PLAN: - Continue salt tablets, decrease to 1 g TID from 2 g prior - Reduce Pt fluid restriction to 2 L (prior restriction was to 1 L) - F/u CMP Assessment & Plan (01/04/2025 4:33 PM CDT): Chronically hyponatremic going back to 2012, typically in the upper 120s and low 130s. Hyponatremic with benjie 122 this admission, which initially improved with fluid restriction. Urine Na <20, urine osmolality 448-661. Plasma osmolality 260 on arrival with urine Na 123 and urine osmolality 421. Initially thought to be due to long- term HCTZ, which has been discontinued, but her labs on arrival are concerning for SIADH. Concerning for acute neurological insult, possibly related to infection or new finding of acute stroke. Suspect worsening on 01/02 due to increased IV fluids when giving abx for meningitis treatment. PLAN: - Continue salt tablets, 1 g TID - Will fluid restrict to 2 L - F/u CMP Assessment & Plan (01/03/2025 3:40 PM CDT): Chronically hyponatremic going back to 2012, typically in the upper 120s and low 130s. Hyponatremic with benjie 122 this admission, which initially improved with fluid restriction. Urine Na <20, urine osmolality 448-661. Plasma osmolality 260 on arrival with urine Na 123 and urine osmolality 421. Initially thought to be due to long- term HCTZ, which has been discontinued, but her labs on arrival are concerning for SIADH. Concerning for acute neurological insult, possibly related to infection and acute stroke. Suspect worsening on 01/02 due to increased IV fluids when giving abx for meningitis treatment. PLAN: - Continue salt tablets, 2 g TID - Will fluid restrict to 1 L - F/u CMP Assessment & Plan (01/03/2025 9:10 AM CDT): Chronically hyponatremic going back to 2012, typically in the upper 120s and low 130s. Hyponatremic with benjie 122 this admission, which initially improved with fluid restriction. Urine Na <20, urine osmolality 448-661. Plasma osmolality 260 on arrival with urine Na 123 and urine osmolality 421. Initially thought to be due to long- term HCTZ, which has been discontinued, but her labs on arrival are concerning for SIADH. Concerning for acute neurological insult, possibly related to infection or new finding of acute stroke. Suspect worsening on 01/02 due to increased IV fluids when giving abx for meningitis treatment. PLAN: - Continue salt tablets, 2 g TID - Will fluid restrict to 1 L - F/u CMP Assessment & Plan (01/02/2025 1:56 PM CDT): Chronically hyponatremic going back to 2012, typically in the upper 120s and low 130s. Hyponatremic with benjie 122 this admission, which initially improved with fluid restriction. Urine Na <20, urine osmolality 448-661. Plasma osmolality 260 on arrival with urine Na 123 and urine osmolality 421. Initially thought to be due to long- term HCTZ, which has been discontinued, but her labs on arrival are concerning for SIADH. Concerning for acute neurological insult, possibly related to infection or new finding of acute stroke. Suspect worsening on 01/02 due to increased IV fluids when giving abx for meningitis treatment. PLAN: - Continue salt tablets, 2 g TID - Will fluid restrict to 1 L - F/u CMP Assessment & Plan (01/02/2025 11:51 AM CDT): Chronically hyponatremic going back to 2012, typically in the upper 120s and low 130s. Hyponatremic with benjie 122 this admission, which improved with fluid restriction. Urine Na <20, urine osmolality 448-661. Plasma osmolality 260 on arrival with urine Na 123 and urine osmolality 421. Initially thought to be due to long- term HCTZ, which has been discontinued, but her labs on arrival are concerning for SIADH. Concerning for acute neurological insult, given that CT CAP at OSH was not concerning for malignancy. - CTM - f/u repeat CBC/CMP - neurological evaluation as above Assessment & Plan (01/01/2025 5:24 AM CDT): Chronically hyponatremic going back to 2012, typically in the upper 120s and low 130s. Hyponatremic with benjie 122 this admission, which improved with fluid restriction. Urine Na <20, urine osmolality 448-661. Plasma osmolality 260 on arrival with urine Na 123 and urine osmolality 421. Initially thought to be due to long- term HCTZ, which has been discontinued, but her labs on arrival are concerning for SIADH. Concerning for acute neurological insult, given that CT CAP at OSH was not concerning for malignancy. - CTM - f/u repeat CBC/CMP - neurological evaluation as above Assessment & Plan (12/23/2024 10:27 AM CDT): Will get more labs to further investigate chronic hyponatremia. Will continue on sodium cholride tables. Will have her follow-up with neuro for brain shunt as well. Will continue to monitor. Orders: Osmolality, blood; Future Osmolality, urine; Future sodium chloride 1 gram tablet; Take 1 tablet (1 g total) by mouth 3 (three) times a day ACTH; Future Sodium, urine, random; Future Cortisol; Future TSH; Future T4, free; Future Assessment & Plan (09/22/2024 10:37 AM CDT): Will try holding sodium tablet and repeat CMP in 2-3 weeks to ensure sodium is staying elevated. Has been working on limiting water. Will continue to monitor. 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 She currently presents with what is likely hypovolemic hyponatremia in the setting of decreased oral fluid intake due to fluid restriction versus worsened SIADH given new findings on CT head versus less likely paraneoplastic versus hypervolemic hyponatremia versus hypothyroidism. Hyponatremia has currently stabilized, likely with continued effect from SIADH. 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 She currently presents with what is likely hypovolemic hyponatremia in the setting of decreased oral fluid intake due to fluid restriction versus worsened SIADH given new findings on CT head versus less likely paraneoplastic versus hypervolemic hyponatremia versus hypothyroidism. Hyponatremia has currently stabilized, likely with continued effect from SIADH. 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 She currently presents with what is likely hypovolemic hyponatremia in the setting of decreased oral fluid intake due to fluid restriction versus worsened SIADH given new findings on CT head versus less likely paraneoplastic versus hypervolemic hyponatremia versus hypothyroidism. Hyponatremia has currently resolved. 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 She currently presents with what is likely hypovolemic hyponatremia in the setting of decreased oral fluid intake due to fluid restriction versus worsened SIADH given new findings on CT head versus less likely paraneoplastic versus hypervolemic hyponatremia versus hypothyroidism. Hyponatremia has currently resolved. Assessment: - Na 125->129 w/ NS @ 75 cc/hr - TSH 5.24 w/ normal fT4 Recommendations: - continue NS @ 75 cc/hr until p.o. 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 She currently presents with what is likely hypovolemic hyponatremia in the setting of decreased oral fluid intake due to fluid restriction versus worsened SIADH given new findings on CT head versus less likely paraneoplastic versus hypervolemic hyponatremia versus hypothyroidism. 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 She currently presents with what is likely hypovolemic hyponatremia in the setting of decreased oral fluid intake due to fluid restriction versus worsened SIADH given new findings on CT head versus less likely paraneoplastic versus hypervolemic hyponatremia versus hypothyroidism. 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 Developed altered mental status characterized by confusion and lethargy at OSH. On chart review, appears to be fully functional at baseline. Had acute on chronic hyponatremia to 122, baseline upper 120s. Lytes otherwise unremarkable and euglycemic. TSH 2.75, fT4 1.44. ESR 50, CRP 317->193, ferritin 806. Noninfectious UA at OSH. EEG with diffuse slowing, no focal slowing or epileptiform changes. Ehrlichia, lyme, and anaplasma negative and s/p doxycycline 12/29-12/31. 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 AMS likely multifactorial iso hyponatremia, new infarcts, and potential infection PLAN: - Continue Ceftriaxone 2gm Q12, Linezolid 600mg Q12, doxy 100mg Q12 - Neurology consulted - aspirin 81 mg qD (will resume after MSK on 01/04) - crestor 40 mg qD - Neurosurgery consulted, so surgical indication at this time - Delirium precautions, avoid sedating medications Assessment & Plan (01/16/2025 8:15 AM CDT): Hx NPH s/p shunt 2021, MRI conditional. Developed altered mental status characterized by confusion and lethargy at OSH. On chart review, appears to be fully functional at baseline. Had acute on chronic hyponatremia to 122, baseline upper 120s. Lytes otherwise unremarkable and euglycemic. TSH 2.75, fT4 1.44. ESR 50, CRP 317->193, ferritin 806. Noninfectious UA at OSH. EEG with diffuse slowing, no focal slowing or epileptiform changes. Ehrlichia, lyme, and anaplasma negative and s/p doxycycline 12/29-12/31. 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 AMS likely multifactorial iso hyponatremia, new infarcts, and potential infection PLAN: - Continue Ceftriaxone 2gm Q12, Linezolid 600mg Q12, doxy 100mg Q12 - Neurology consulted - aspirin 81 mg qD (will resume after MSK on 01/04) - crestor 40 mg qD - stroke follow up; SMART consult - BP goal: gradual normotension - Neurosurgery consulted, so surgical indication at this time - Delirium precautions, avoid sedating medications Assessment & Plan (01/15/2025 8:02 AM CDT): Hx NPH s/p shunt 2021, MRI conditional. Developed altered mental status characterized by confusion and lethargy at OSH. On chart review, appears to be fully functional at baseline. Had acute on chronic hyponatremia to 122, baseline upper 120s. Lytes otherwise unremarkable and euglycemic. TSH 2.75, fT4 1.44. ESR 50, CRP 317->193, ferritin 806. Noninfectious UA at OSH. EEG with diffuse slowing, no focal slowing or epileptiform changes. Ehrlichia, lyme, and anaplasma negative and s/p doxycycline 12/29-12/31. 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 AMS likely multifactorial iso hyponatremia, new infarcts, and potential infection PLAN: - Continue Ceftriaxone 2gm Q12, Linezolid 600mg Q12, doxy 100mg Q12 - Neurology consulted - aspirin 81 mg qD (will resume after MSK on 01/04) - crestor 40 mg qD - stroke follow up; SMART consult - BP goal: gradual normotension - Neurosurgery consulted, so surgical indication at this time - Delirium precautions, avoid sedating medications Assessment & Plan (01/14/2025 10:44 AM CDT): Hx NPH s/p shunt 2021, MRI conditional. Developed altered mental status characterized by confusion and lethargy at OSH. On chart review, appears to be fully functional at baseline. Had acute on chronic hyponatremia to 122, baseline upper 120s. Lytes otherwise unremarkable and euglycemic. TSH 2.75, fT4 1.44. ESR 50, CRP 317->193, ferritin 806. Noninfectious UA at OSH. EEG with diffuse slowing, no focal slowing or epileptiform changes. Ehrlichia, lyme, and anaplasma negative and s/p doxycycline 12/29-12/31. 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 AMS likely multifactorial iso hyponatremia, new infarcts, and potential infection PLAN: - Continue Ceftriaxone 2gm Q12, Linezolid 600mg Q12, doxy 100mg Q12 - Neurology consulted - obtain CTA head and neck - aspirin 81 mg qD (will resume after MSK on 01/04) - crestor 40 mg qD - stroke follow up; SMART consult - BP goal: gradual normotension - Neurosurgery consulted, so surgical indication at this time - Delirium precautions, avoid sedating medications Assessment & Plan (01/14/2025 6:47 AM CDT): Hx NPH s/p shunt 2021, MRI conditional. Developed altered mental status characterized by confusion and lethargy at OSH. On chart review, appears to be fully functional at baseline. Had acute on chronic hyponatremia to 122, baseline upper 120s. Lytes otherwise unremarkable and euglycemic. TSH 2.75, fT4 1.44. ESR 50, CRP 317->193, ferritin 806. Noninfectious UA at OSH. EEG with diffuse slowing, no focal slowing or epileptiform changes. Ehrlichia, lyme, and anaplasma negative and s/p doxycycline 12/29-12/31. 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 AMS likely multifactorial iso hyponatremia, new infarcts, and potential infection PLAN: - Continue Ceftriaxone 2gm Q12, Linezolid 600mg Q12, doxy 100mg Q12 - Neurology consulted - obtain CTA head and neck - aspirin 81 mg qD (will resume after MSK on 01/04) - crestor 40 mg qD - stroke follow up; SMART consult - BP goal: gradual normotension - Neurosurgery consulted, so surgical indication at this time - Delirium precautions, avoid sedating medications Assessment & Plan (01/13/2025 1:39 PM CDT): Hx NPH s/p shunt 2021, MRI conditional. Developed altered mental status characterized by confusion and lethargy at OSH. On chart review, appears to be fully functional at baseline. Had acute on chronic hyponatremia to 122, baseline upper 120s. Lytes otherwise unremarkable and euglycemic. TSH 2.75, fT4 1.44. ESR 50, CRP 317->193, ferritin 806. Noninfectious UA at OSH. EEG with diffuse slowing, no focal slowing or epileptiform changes. Ehrlichia, lyme, and anaplasma negative and s/p doxycycline 12/29-12/31. 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 AMS likely multifactorial iso hyponatremia, new infarcts, and potential infection PLAN: - Continue Ceftriaxone 2gm Q12, Linezolid 600mg Q12, doxy 100mg Q12 - Neurology consulted - obtain CTA head and neck - aspirin 81 mg qD (will resume after MSK on 01/04) - crestor 40 mg qD - stroke follow up; SMART consult - BP goal: gradual normotension - Neurosurgery consulted, so surgical indication at this time - Delirium precautions, avoid sedating medications Assessment & Plan (01/12/2025 9:38 AM CDT): Hx NPH s/p shunt 2021, MRI conditional. Developed altered mental status characterized by confusion and lethargy at OSH. On chart review, appears to be fully functional at baseline. Had acute on chronic hyponatremia to 122, baseline upper 120s. Lytes otherwise unremarkable and euglycemic. TSH 2.75, fT4 1.44. ESR 50, CRP 317->193, ferritin 806. Noninfectious UA at OSH. EEG with diffuse slowing, no focal slowing or epileptiform changes. Ehrlichia, lyme, and anaplasma negative and s/p doxycycline 12/29-12/31. 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 AMS likely multifactorial iso hyponatremia, new infarcts, and potential infection PLAN: - Continue Ceftriaxone 2gm Q12, Linezolid 600mg Q12, doxy 100mg Q12 - Neurology consulted - obtain CTA head and neck - aspirin 81 mg qD (will resume after MSK on 01/04) - crestor 40 mg qD - stroke follow up; SMART consult - BP goal: gradual normotension - Neurosurgery consulted, so surgical indication at this time - Delirium precautions, avoid sedating medications Assessment & Plan (01/12/2025 11:13 AM CDT): Hx NPH s/p shunt 2021, MRI conditional. Developed altered mental status characterized by confusion and lethargy at OSH. On chart review, appears to be fully functional at baseline. Had acute on chronic hyponatremia to 122, baseline upper 120s. Lytes otherwise unremarkable and euglycemic. TSH 2.75, fT4 1.44. ESR 50, CRP 317->193, ferritin 806. Noninfectious UA at OSH. EEG with diffuse slowing, no focal slowing or epileptiform changes. Ehrlichia, lyme, and anaplasma negative and s/p doxycycline 12/29-12/31. 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 AMS likely multifactorial iso hyponatremia, new infarcts, and potential infection 01/11 15:30 patient became altered, AOx0, confused and intermittently unable to follow directions. Neuro exam concerning for weakness R>L and AMS. Stroke workup negative, head CT negative. BG, Na wnl. Patient's symptoms improved. PLAN: - Continue Ceftriaxone 2gm Q12, Linezolid 600mg Q12, doxy 100mg Q12 - Neurology consulted - aspirin 81 mg qD (will resume after MSK on 01/04) - crestor 40 mg qD - stroke follow up; SMART consult - BP goal: gradual normotension - Neurosurgery consulted, no surgical indication at this time - Delirium precautions, avoid sedating medications Assessment & Plan (01/11/2025 8:17 AM CDT): Hx NPH s/p shunt 2021, MRI conditional. Developed altered mental status characterized by confusion and lethargy at OSH. On chart review, appears to be fully functional at baseline. Had acute on chronic hyponatremia to 122, baseline upper 120s. Lytes otherwise unremarkable and euglycemic. TSH 2.75, fT4 1.44. ESR 50, CRP 317->193, ferritin 806. Noninfectious UA at OSH. EEG with diffuse slowing, no focal slowing or epileptiform changes. Ehrlichia, lyme, and anaplasma negative and s/p doxycycline 12/29-12/31. 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 AMS likely multifactorial iso hyponatremia, new infarcts, and potential infection PLAN: - Continue Ceftriaxone 2gm Q12, Linezolid 600mg Q12, doxy 100mg Q12 - Neurology consulted - obtain CTA head and neck - aspirin 81 mg qD (will resume after [facility] on 01/04) - crestor 40 mg qD - stroke follow up; SMART consult - BP goal: gradual normotension - Neurosurgery consulted, so surgical indication at this time - Delirium precautions, avoid sedating medications Assessment & Plan (01/11/2025 8:23 AM CDT): Hx NPH s/p shunt 2021, MRI conditional. Developed altered mental status characterized by confusion and lethargy at OSH. On chart review, appears to be fully functional at baseline. Had acute on chronic hyponatremia to 122, baseline upper 120s. Lytes otherwise unremarkable and euglycemic. TSH 2.75, fT4 1.44. ESR 50, CRP 317->193, ferritin 806. Noninfectious UA at OSH. EEG with diffuse slowing, no focal slowing or epileptiform changes. Ehrlichia, lyme, and anaplasma negative and s/p doxycycline 12/29-12/31. 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 Diffuse pachymeningeal thickening of the brain and cervical spine with cervical spine subdural hemorrhage extending from C2 to C3-C4 resulting in severe canal stenosis Repeat Brain MRI 01/09 showed additional infarcts AMS likely multifactorial iso hyponatremia, new infarcts, and potential infection, AMS has since improved PLAN: - Continue Ceftriaxone 2gm Q12, Linezolid 600mg Q12, doxy 100mg Q12 - Neurology consulted - obtain CTA head and neck - aspirin 81 mg qD (will resume after [facility] on 01/04) - crestor 40 mg qD - stroke follow up; SMART consult - BP goal: gradual normotension - Neurosurgery consulted, no surgical indication at this time - Delirium precautions, avoid sedating medications Assessment & Plan (01/10/2025 11:00 AM CDT): Hx NPH s/p shunt 2021, MRI conditional. Developed altered mental status characterized by confusion and lethargy at OSH. On chart review, appears to be fully functional at baseline. Had acute on chronic hyponatremia to 122, baseline upper 120s. Lytes otherwise unremarkable and euglycemic. TSH 2.75, fT4 1.44. ESR 50, CRP 317->193, ferritin 806. Noninfectious UA at OSH. EEG with diffuse slowing, no focal slowing or epileptiform changes. Ehrlichia, lyme, and anaplasma negative and s/p doxycycline 12/29-12/31. 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 AMS likely multifactorial iso hyponatremia, new infarcts, and potential infection PLAN: - Continue Ceftriaxone 2gm Q12, Linezolid 600mg Q12, doxy 100mg Q12 - Neurology consulted - obtain CTA head and neck - aspirin 81 mg qD (will resume after [facility] on 01/04) - crestor 40 mg qD - stroke follow up; SMART consult - BP goal: gradual normotension - Neurosurgery consulted, so surgical indication at this time - Delirium precautions, avoid sedating medications Assessment & Plan (01/09/2025 11:47 AM CDT): Hx NPH s/p shunt 2021, MRI conditional. Developed altered mental status characterized by confusion and lethargy at OSH. On chart review, appears to be fully functional at baseline. Had acute on chronic hyponatremia to 122, baseline upper 120s. Lytes otherwise unremarkable and euglycemic. TSH 2.75, fT4 1.44. ESR 50, CRP 317->193, ferritin 806. Noninfectious UA at OSH. EEG with diffuse slowing, no focal slowing or epileptiform changes. Ehrlichia, lyme, and anaplasma negative and s/p doxycycline 12/29-12/31. 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 AMS likely multifactorial iso hyponatremia, new infarcts, and potential infection PLAN: - Continue Ceftriaxone 2gm Q12, Linezolid 600mg Q12, doxy 100mg Q12 - Neurology consulted - obtain CTA head and neck - aspirin 81 mg qD (will resume after [facility] on 01/04) - crestor 40 mg qD - stroke follow up; SMART consult - BP goal: gradual normotension - Neurosurgery consulted - Delirium precautions, avoid sedating medications - Patient not taking oral BP meds, suspected new stroke in setting of new large mitral vegetation. Gradual normotension. PRN IV hydralazine 10mg if systolic >200 -Swallow eval for PO meds now patient is near baseline Assessment & Plan (01/08/2025 9:39 AM CDT): Hx NPH s/p shunt 2021, MRI conditional. Developed altered mental status characterized by confusion and lethargy at OSH. On chart review, appears to be fully functional at baseline. Had acute on chronic hyponatremia to 122, baseline upper 120s. Lytes otherwise unremarkable and euglycemic. TSH 2.75, fT4 1.44. ESR 50, CRP 317->193, ferritin 806. Noninfectious UA at OSH. EEG with diffuse slowing, no focal slowing or epileptiform changes. Ehrlichia, lyme, and anaplasma negative and s/p doxycycline 12/29-12/31. 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 AMS likely multifactorial iso hyponatremia, new infarcts, and potential infection PLAN: - Continue Ceftriaxone 2gm Q12, Linezolid 600mg Q12, doxy 100mg Q12 - Neurology consulted - obtain CTA head and neck - aspirin 81 mg qD (will resume after [facility] on 01/04) - crestor 40 mg qD - stroke follow up; SMART consult - BP goal: gradual normotension - Neurosurgery consulted - Delirium precautions, avoid sedating medications - Patient not taking oral BP meds, suspected new stroke in setting of new large mitral vegetation. Permissive hypertension. PRN IV hydralazine 10mg if systolic >200 Assessment & Plan (01/07/2025 11:18 AM CDT): Hx NPH s/p shunt 2021, MRI conditional. Developed altered mental status characterized by confusion and lethargy at OSH. On chart review, appears to be fully functional at baseline. Had acute on chronic hyponatremia to 122, baseline upper 120s. Lytes otherwise unremarkable and euglycemic. TSH 2.75, fT4 1.44. ESR 50, CRP 317->193, ferritin 806. Noninfectious UA at OSH. EEG with diffuse slowing, no focal slowing or epileptiform changes. Ehrlichia, lyme, and anaplasma negative and s/p doxycycline 12/29-12/31. 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 AMS likely multifactorial iso hyponatremia, new infarcts, and potential infection PLAN: - Started empirical meningitis treatment - cefepime, vanc, ampicillin, and acyclovir - Neurology consulted - obtain CTA head and neck - aspirin 81 mg qD (will resume after [facility] on 01/04) - crestor 40 mg qD - JANELLE - will likely need loop monitor on discharge - stroke follow up; SMART consult - BP goal: gradual normotension - Neurosurgery consulted - Delirium precautions, avoid sedating medications Assessment & Plan (01/07/2025 3:48 PM CDT): Hx NPH s/p shunt 2021, MRI conditional. Developed altered mental status characterized by confusion and lethargy at OSH. On chart review, appears to be fully functional at baseline. Had acute on chronic hyponatremia to 122, baseline upper 120s. Lytes otherwise unremarkable and euglycemic. TSH 2.75, fT4 1.44. ESR 50, CRP 317->193, ferritin 806. Noninfectious UA at OSH. EEG with diffuse slowing, no focal slowing or epileptiform changes. Ehrlichia, lyme, and anaplasma negative and s/p doxycycline 12/29-12/31. 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 AMS likely multifactorial iso hyponatremia, new infarcts, and potential infection PLAN: - ABX per Id linezolid 600mg BID, ceftriaxone 2g BID, Doxycycline 100mg BID - Neurology consulted - obtain CTA head and neck - aspirin 81 mg qD (will resume after [facility] on 01/04) - crestor 40 mg qD - will likely need loop monitor on discharge - stroke follow up; SMART consult - BP goal: gradual normotension - Neurosurgery consulted - Delirium precautions, avoid sedating medications -JANELLE performed showing large mitral valve vegetation, concern for storke with new AMS -CT surgery consulted Assessment & Plan (01/06/2025 9:01 AM CDT): Hx NPH s/p shunt 2021, MRI conditional. Developed altered mental status characterized by confusion and lethargy at OSH. On chart review, appears to be fully functional at baseline. Had acute on chronic hyponatremia to 122, baseline upper 120s. Lytes otherwise unremarkable and euglycemic. TSH 2.75, fT4 1.44. ESR 50, CRP 317->193, ferritin 806. Noninfectious UA at OSH. EEG with diffuse slowing, no focal slowing or epileptiform changes. Ehrlichia, lyme, and anaplasma negative and s/p doxycycline 12/29-12/31. 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 AMS likely multifactorial iso hyponatremia, new infarcts, and potential infection PLAN: - Started empirical meningitis treatment - cefepime, vanc, ampicillin, and acyclovir - Neurology consulted - obtain CTA head and neck - aspirin 81 mg qD (will resume after [facility] on 01/04) - crestor 40 mg qD - JANELLE - will likely need loop monitor on discharge - stroke follow up; SMART consult - BP goal: gradual normotension - Neurosurgery consulted - Delirium precautions, avoid sedating medications Assessment & Plan (01/06/2025 2:43 PM CDT): Hx NPH s/p shunt 2021, MRI conditional. Developed altered mental status characterized by confusion and lethargy at OSH. On chart review, appears to be fully functional at baseline. Had acute on chronic hyponatremia to 122, baseline upper 120s. Lytes otherwise unremarkable and euglycemic. TSH 2.75, fT4 1.44. ESR 50, CRP 317->193, ferritin 806. Noninfectious UA at OSH. EEG with diffuse slowing, no focal slowing or epileptiform changes. Ehrlichia, lyme, and anaplasma negative and s/p doxycycline 12/29-12/31. 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 AMS likely multifactorial iso hyponatremia, new infarcts, and potential infection 01/05, patient mental status deteriorated, AOx0, not following directions. CR increased to 2.22 vanc level 39 PLAN: - Vanc DC'd, repeat vanc level tomorrow AM -Repeat brain MRI -Meropenem 1g q12 -Renal consult for rising CR in setting of AMS - Neurology consulted - obtain CTA head and neck - aspirin 81 mg qD (will resume after [facility] on 01/04) - crestor 40 mg qD - JANELLE tomorrow, NPO at midnight - will likely need loop monitor on discharge - stroke follow up; SMART consult - BP goal: gradual normotension - Neurosurgery consulted for [employer] shunt fluid analysis - Delirium precautions, avoid sedating medications - DC gabapentin 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 She presented with hyponatremia to 122, her baseline is upper 120s. Lytes otherwise unremarkable and euglycemic. TSH 2.75, fT4 1.44. ESR 50, CRP 317->193, ferritin 806. Noninfectious UA. EEG with diffuse slowing, no focal slowing or epileptiform changes. Ehrlichia, lyme, and anaplasma negative and s/p doxycycline 12/29-12/31. Brain MRI on 01/01 was remarkable for multiple punctate acute infarcts of the right internal capsule, right centrum semiovale bowel, left parietal white matter, and left cerebellar hemisphere involving multiple vascular territories, raising suspicion for an embolic source. Diffuse pachymeningeal thickening of the brain and cervical spine with cervical spine subdural hemorrhage extending from C2 to C3-C4 resulting in severe canal stenosis. MRI Spine thoracic and lumbar showed discitis and osteomyelitis at T1-T2 and T12-L1. Fluid filled subdural space possibly an empyema spinal infection. Initially were concerned for meningoencephalitic process and brain MRI revealed multifocal punctate infarcts. The infarcts are likely occurring within the prior 3-4 days (did not all occur on the day, varying ages). Given its multivascular territories, etiology may be a septic emboli from cardiac source. Multifocal infarcts are also likely contributing to her altered mental status, however AMS is likely multifactorial in the setting of hyponatremia, new infarcts, and possible meningitis/infection spread. Her WBCs are holding stable at 11.79. Blood culture has no growths as of date. PLAN: - Continue empirical meningitis treatment, per neurology and ID consults: - Current abx regimen: - Discontinue Acyclovir and Ampicillin - Continue Cefepime 2gIV q12h - Continue Vancomycin 15mg/kg IV q12h - Bone biopsy with [facility] IR yesterday -follow up cultures - JANELLE for suspected septic emboli tentatively scheduled for 01/07 - Neurology consulted - aspirin 81 mg - crestor 40 mg daily - Pt will need loop monitor on discharge pending JANELLE results - stroke follow up - BP goal: gradual normotension - Neurosurgery consulted: discussion of feasibility of vp software engineering shunt fluid sampling. - Delirium precautions, avoid sedating medications - Ophthalmology consulted for acute visual changes/floaters and evaluation for possible infectious spread to eyes, no intervention at this time. 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 She presented with hyponatremia to 122, her baseline is upper 120s. Lytes otherwise unremarkable and euglycemic. TSH 2.75, fT4 1.44. ESR 50, CRP 317->193, ferritin 806. Noninfectious UA. EEG with diffuse slowing, no focal slowing or epileptiform changes. Ehrlichia, lyme, and anaplasma negative and s/p doxycycline 12/29-12/31. Brain MRI on 01/01 was remarkable for multiple punctate acute infarcts of the right internal capsule, right centrum semiovale bowel, left parietal white matter, and left cerebellar hemisphere involving multiple vascular territories, raising suspicion for an embolic source. Diffuse pachymeningeal thickening of the brain and cervical spine with cervical spine subdural hemorrhage extending from C2 to C3-C4 resulting in severe canal stenosis. MRI Spine thoracic and lumbar showed discitis and osteomyelitis at T1-T2 and T12-L1. Fluid filled subdural space possibly an empyema spinal infection. Initially were concerned for meningoencephalitic process and brain MRI revealed multifocal punctate infarcts. The infarcts are likely occurring within the prior 3-4 days (did not all occur on the day, varying ages). Given its multivascular territories, etiology may be a septic emboli from cardiac source. Multifocal infarcts are also likely contributing to her altered mental status, however AMS is likely multifactorial in the setting of hyponatremia, new infarcts, and possible meningitis/infection spread. Her WBCs are holding stable at 11.79. Blood culture has no growths as of date. PLAN: - Continue empirical meningitis treatment, per neurology and ID consults: - Current abx regimen: - Acyclovir 10mg/kg q12h - Ampicillin 2gIV q6h - Cefepime 2gIV q12h - Vancomycin 15mg/kg IV q12h - May consider discontinuing ampicillin in next 48 hrs if blood culture does not grow Listeria - Bone biopsy with [facility] IR today - IR will not perform LP given risk of subdural empyema seeding CSF space - JANELLE for suspected septic emboli tentatively scheduled for 01/07 - Neurology consulted - aspirin 81 mg (held, will follow up post bone biopsy) - crestor 40 mg daily - Pt will need loop monitor on discharge - stroke follow up - BP goal: gradual normotension - Neurosurgery consulted: no surgical interventions at this time, spine is stable, no activity restrictions. - Delirium precautions, avoid sedating medications - Ophthalmology consulted for acute visual changes/floaters and evaluation for possible infectious spread to eyes Assessment & Plan (01/04/2025 4:33 PM CDT): Hx NPH s/p shunt 2021, MRI conditional. Developed altered mental status characterized by confusion and lethargy at OSH. On chart review, appears to be fully functional at baseline. Had acute on chronic hyponatremia to 122, baseline upper 120s. Lytes otherwise unremarkable and euglycemic. TSH 2.75, fT4 1.44. ESR 50, CRP 317->193, ferritin 806. Noninfectious UA at OSH. EEG with diffuse slowing, no focal slowing or epileptiform changes. Ehrlichia, lyme, and anaplasma negative and s/p doxycycline 12/29-12/31. 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 AMS likely multifactorial iso hyponatremia, new infarcts, and potential infection PLAN: - Started empirical meningitis treatment - cefepime, vanc, ampicillin, and acyclovir - Neurology consulted - obtain CTA head and neck - aspirin 81 mg qD (will resume after [facility] on 01/04) - crestor 40 mg qD - JANELLE - will likely need loop monitor on discharge - stroke follow up; SMART consult - BP goal: gradual normotension - Neurosurgery consulted - Delirium precautions, avoid sedating medications Assessment & Plan (01/03/2025 3:40 PM CDT): Hx NPH s/p shunt 2021, MRI conditional. Developed altered mental status characterized by confusion and lethargy at OSH. Fully functional at baseline. Had acute on chronic hyponatremia to 122, baseline upper 120s. Lytes otherwise unremarkable and euglycemic. TSH 2.75, fT4 1.44. ESR 50, CRP 317->193, ferritin 806. Noninfectious UA at OSH. EEG with diffuse slowing, no focal slowing or epileptiform changes. Ehrlichia, lyme, and anaplasma negative and s/p doxycycline 12/29-12/31. 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 Diffuse pachymeningeal thickening of the brain and cervical spine with cervical spine subdural hemorrhage extending from C2 to C3-C4 resulting in severe canal stenosis MRI Spine Thoracic and lumbar showed discitis and osteomyelitis at T1-T2 and T12-L1. Fluid filled subdural space possibly an empyema spinal infection. PLAN: - Started empirical meningitis treatment - cefepime, vanc, ampicillin, and acyclovir -Bone biopsy tomorrow with [facility] IR, NPO midnight - JANELLE for suspected septic emboli tentatively scheduled for 01/07. Repeat blood cultures - Neurology consulted - aspirin 325 mg Daily (will follow up post bone biopsy) - crestor 40 mg Daily - will likely need loop monitor on discharge - stroke follow up - BP goal: gradual normotension - Neurosurgery consulted - No surgical interventions at this time, spine is stable, no activity restrictions. -ID consulted - Delirium precautions, avoid sedating medications Assessment & Plan (01/03/2025 9:10 AM CDT): Hx NPH s/p shunt 2021, MRI conditional. Developed altered mental status characterized by confusion and lethargy at OSH. On chart review, appears to be fully functional at baseline. Had acute on chronic hyponatremia to 122, baseline upper 120s. Lytes otherwise unremarkable and euglycemic. TSH 2.75, fT4 1.44. ESR 50, CRP 317->193, ferritin 806. Noninfectious UA at OSH. EEG with diffuse slowing, no focal slowing or epileptiform changes. Ehrlichia, lyme, and anaplasma negative and s/p doxycycline 12/29-12/31. 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 AMS likely multifactorial iso hyponatremia, new infarcts, and potential infection PLAN: - Started empirical meningitis treatment - cefepime, vanc, ampicillin, and acyclovir - Neurology consulted - obtain CTA head and neck - aspirin 325 mg qD (will resume after LP on 01/03) - crestor 40 mg qD - no need for repeat TTE - will likely need loop monitor on discharge - stroke follow up - BP goal: gradual normotension - Neurosurgery consulted - Recommend MRI lumbar and thoracic spine - Plan for LP on 01/03 - Delirium precautions, avoid sedating medications Assessment & Plan (01/02/2025 1:56 PM CDT): Hx NPH s/p shunt 2021, MRI conditional. Developed altered mental status characterized by confusion and lethargy at OSH. On chart review, appears to be fully functional at baseline. Had acute on chronic hyponatremia to 122, baseline upper 120s. Lytes otherwise unremarkable and euglycemic. TSH 2.75, fT4 1.44. ESR 50, CRP 317->193, ferritin 806. Noninfectious UA at OSH. EEG with diffuse slowing, no focal slowing or epileptiform changes. Ehrlichia, lyme, and anaplasma negative and s/p doxycycline 12/29-12/31. 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 AMS likely multifactorial iso hyponatremia, new infarcts, and potential infection PLAN: - Started empirical meningitis treatment - cefepime, vanc, ampicillin, and acyclovir - Neurology consulted - obtain CTA head and neck - aspirin 325 mg qD (will resume after LP on 01/03) - crestor 40 mg qD - no need for repeat TTE - will likely need loop monitor on discharge - stroke follow up - BP goal: gradual normotension - Neurosurgery consulted - Recommend MRI lumbar and thoracic spine - Plan for LP on 01/03 - Delirium precautions, avoid sedating medications Assessment & Plan (01/02/2025 11:51 AM CDT): Hx NPH s/p shunt 2021, MRI conditional. Developed altered mental status characterized by confusion and lethargy at OSH. On chart review, appears to be fully functional at baseline. Had acute on chronic hyponatremia to 122, now at baseline upper 120s. Lytes otherwise unremarkable and euglycemic. TSH 2.75, fT4 1.44. ESR 50, CRP 317->193, ferritin 806. Noninfectious UA at OSH. CTH with no acute intracranial abnormalities. MRI unable to be obtained at OSH due to shunt. LP with minimal fluid obtained, neutrophils 37, lymphs 2, monos 4. EEG with diffuse slowing, no focal slowing or epileptiform changes. Ehrlichia, lyme, and anaplasma negative and s/p doxycycline 12/29-12/31. Concern for inflammatory etiology given elevated inflammatory markers and underlying autoimmune disease, and new onset ?SIADH as below is also concerning for neurological involvement beyond TME. Likely does also have a component of TME given admission for back pain managed with opioids and diffuse slowing on EEG. Likely also contribution of hyponatremia, though this is chronic and likely does not account for an acute change in status. Shunt dysfunction is also on the differential, though this is also less likely as there is no ventriculomegaly seen on her HCT. Lower c/f meningitis given non-toxic appearance, acute onset without infectious sx, though as above LP is difficult to interpret. She reports neck pain, but this is more consistent with MSK etiology given paraspinal tenderness to palpation. Nutritional etiology is unlikely given acute nature of her mental status change, and she is on methotrexate but taking folate supplementation; B12 was normal in September. Plan: - c/s neurology - f/u bMRI, shunt series - B12 wnl, f/u folate - consider repeat LP - delirium precautions, avoid sedating medications - call daughter for collateral Assessment & Plan (01/01/2025 8:31 AM CDT): Hx NPH s/p shunt 2021, MRI conditional. Developed altered mental status characterized by confusion and lethargy at OSH. On chart review, appears to be fully functional at baseline. Had acute on chronic hyponatremia to 122, now at baseline upper 120s. Lytes otherwise unremarkable and euglycemic. TSH 2.75, fT4 1.44. ESR 50, CRP 317->193, ferritin 806. Noninfectious UA at OSH. CTH with no acute intracranial abnormalities. MRI unable to be obtained at OSH due to shunt. LP with minimal fluid obtained, neutrophils 37, lymphs 2, monos 4. EEG with diffuse slowing, no focal slowing or epileptiform changes. Ehrlichia, lyme, and anaplasma negative and s/p doxycycline 12/29-12/31. Concern for inflammatory etiology given elevated inflammatory markers and underlying autoimmune disease, and new onset ?SIADH as below is also concerning for neurological involvement beyond TME. Likely does also have a component of TME given admission for back pain managed with opioids and diffuse slowing on EEG. Likely also contribution of hyponatremia, though this is chronic and likely does not account for an acute change in status. Shunt dysfunction is also on the differential, though this is also less likely as there is no ventriculomegaly seen on her HCT. Lower c/f meningitis given non-toxic appearance, acute onset without infectious sx, though as above LP is difficult to interpret. She reports neck pain, but this is more consistent with MSK etiology given paraspinal tenderness to palpation. Nutritional etiology is unlikely given acute nature of her mental status change, and she is on methotrexate but taking folate supplementation; B12 was normal in September. Plan: - c/s neurology - f/u bMRI, shunt series - B12 wnl, f/u folate - consider repeat LP - delirium precautions, avoid sedating medications - call daughter for collateral Assessment & Plan (07/13/2024 10:05 AM CDT): NO falls, no balance problems. Congrautate on exercise program with line dancing every week on Friday at [facility]. BMI 30.0-30.9,adult 10/06/2018 12/14/19 20 Overview (10/06/2018): BMI Follow-up includes: nutrition counseling, exercise counseling and education provided. Nasal congestion 09/21/2018 12/14/2019 Assessment & Plan (09/21/2018 3:49 PM CDT): Nasal saline or sinus rinse followed by Aquaphor 2-3 times daily Elevate head of bed 4 inches with bed risers Astelin 2 sprays into each nostril while looking down over the sink, do not sniff in or blow nose after use. Nasal saline followed by Astelin, followed by Aquaphor BMI 27.0-27.9,adult 07/07/2018 12/14/19 20 Overview (07/07/2018): BMI Follow-up includes: nutrition counseling, exercise counseling and education provided. BMI 27.0-27.9,adult 12/31/2016 12/14/19 20 Overview (03/21/2017): BMI Follow-up includes: nutrition counseling, exercise counseling and education provided. Assessment & Plan (03/18/2018 9:44 AM TREE THINNER): BMI Follow-up includes: nutrition counseling, exercise counseling and education provided. Assessment & Plan (12/31/2016 10:56 AM CDT): BMI Follow-up includes: nutrition counseling, exercise counseling and education provided. Increased frequency of urination 04/25/2016 12/14/2019 Narcolepsy 11/20/2012 02/02/2019 Overview (07/19/2016): Narcolepsy without cataplexy Assessment & Plan (06/19/2017 1:47 PM TREE THINNER): No new changes Assessment & Plan (12/31/2016 11:39 AM CDT): She is having a number of issues including sexomnia, she is following with her sleep doctor she is going to try her on clonazepam Assessment & Plan (09/19/2016 11:04 AM CDT): Had sleep study done Friday night. Class 2 severe obesity due t o excess calories with serious comorbidity in adult 07/31/20122020 Overview (07/19/2016): Obesity Assessment & Plan (10/09/2018 7:55 AM CDT): Continue encourage diet exercise weight loss weight is about the same at this time Assessment & Plan (12/31/2016 11:38 AM CDT): Obesity is improving with treatment. Counseling was provided to the child and family regarding physical activity. Diet interventions: diet diary indefinitely. Assessment & Plan (09/19/2016 11:11 AM CDT): Obesity is unchanged. Discussed the patient's BMI. The BMI is in the acceptable range. General weight loss/lifestyle modification strategies discussed (elicit support from others; identify saboteurs; non-food rewards, etc). Encounters Date Type Department Care Team Description 03/16/2025 12:33 PM TREE THINNER Hospital Encounter [facility] Cardiac Diagnostic Lab [address] [facility] [address] [place] [address] S/P MVR (mitral valve repair); S/P CABG (coronary artery bypass graft) 03/16/2025 11:45 AM TREE THINNER Office Visit [facility] Cardiothoracic Surgery [address] [facility] 8th Floor [address] Room [address] [place] [phone] Brenna Chavez MD 03/15/2025 Telephone [facility] 1 [place] [address] [facility] 03/09/2025 Telephone [facility] 1 [place] [address] [facility] 03/04/2025 Telephone [facility] Infectious Diseases [address] [facility] Medical Office Building 2 [address] [place] [address] Mony Wilson, STOKER ERECTOR AND SERVICER 03/03/2025 Telephone [facility] Medicine Infectious Diseases [address] [place] [phone] Marizol Zamora LCSW 03/03/2025 Telephone [facility] Infectious Diseases [address] [place] [phone] Katey Bermudez RN 03/03/2025 Telephone [facility] Infectious Diseases [address] [place] [phone] Vanessa Warren, ANGELICA Opat Progress/Monitoring 03/02/2025 8:12 PM TREE THINNER - 03/02/2025 11:59 PM TREE THINNER Hospital Encounter [facility] [address] [place] [address] Discharge Disposition: Discharge to home or self care 03/02/2025 3:05 PM TREE THINNER Lab [facility] [address] [place] [address] Acute osteomyelitis of spine (HCC) 03/02/2025 1:20 PM TREE THINNER Office Visit [facility] Medicine Infectious Diseases [address] [facility] Medical Office Building 2 [address] [place] [address] Mony Wilson NP Subdural empyema (Primary Dx); Abscess in epidural space of cervical spine; High risk medication use 03/02/2025 Telephone [facility] Infectious Diseases [address] [phone] Odalis Lopez 03/02/2025 Telephone [facility] Infectious Diseases [address] [phone] Odalis Lopez 03/02/2025 Telephone [facility] Infectious Diseases [address] [phone] Katey Bermudez, ANGELICA 03/02/2025 Telephone [facility] [address] [phone] Pascual Connor MD Medical Question/Miscellaneou s 03/02/2025 Telephone [facility] [address] [phone] Pascual Cononr MD Medical Question/Miscellaneou s 03/02/2025 Telephone [facility] 1 [place] [phone] Alexei Bang RPh 03/01/2025 1:15 PM TREE THINNER Office Visit [facility] Medicine Neurosurgery [address] [facility] Floor 1, [address] [place] [phone] Siena Pereira, STOKER ERECTOR AND SERVICER NPH (normal pressure hydrocephalus) (Primary Dx) 03/01/2025 10:17 AM TREE THINNER - 03/01/2025 11:59 PM TREE THINNER Hospital Encounter [facility] 1 [place] [address] Epidural abscess Discharge Disposition: Discharge to home or self care 03/01/2025 8:30 AM TREE THINNER [facility] [address] [phone] Pascual Connor MD Acute osteomyelitis of spine (HCC) (Primary Dx); 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 (CMS/HCC) (HCC); Moderate episode of recurrent major depressive disorder (HCC); Longstanding persistent atrial fibrillation (HCC); Stage 3a chronic kidney disease (HCC); Cerebrovascular accident (CVA), unspecified mechanism (HCC); 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, unspecified vessel or lesion type 03/01/2025 Telephone [facility] [address] [phone] Pascual Connor MD Medical Question/Miscellaneou s 02/23/2025 Telephone [facility] 1 [place] [address] Alexei Bang [facility] 02/22/2025 Orders Only [facility] Medicine Infectious Diseases [address] [place] [phone] Katey Bermudez RN Epidural abscess (Primary Dx) 02/22/2025 Telephone [facility] [address] [phone] Pascual Connor MD VICK Questions 02/22/2025 Telephone [facility] Medicine Infectious Diseases [address] [place] [phone] Sudha Leyva RMA 02/18/2025 Telephone [facility] 1 [place] [address] Dionna Cook, [facility] 02/17/2025 Telephone [facility] Medicine Rheumatology [address] [place] [address] 5th Floor [address] [place] [phone] Marva Hunt, SHYANNE PHV pt follow up 02/16/2025 Telephone [facility] Infectious Diseases [address] [facility] [address] [place] [phone] Nessa Fowler, WIRELESS COMMUNICATIONS ENGINEER 02/15/2025 Telephone [facility] 1 [place] [phone] Dionna Cook, [facility] 02/14/2025 Telephone [facility] 1 [place] [address] Dionna Cook, [facility] 02/11/2025 Telephone [facility] 1 [place] [address] Dionna Cook, [facility] 02/10/2025 Orders Only [facility] Cardiothoracic Surgery [facility] 8th Floor [address] [address] [phone] Brenna Chavez MD S/P MVR (mitral valve repair) (Primary Dx); S/P CABG (coronary artery bypass graft) 02/04/2025 Orders Only [facility] Neuro Interventional Radiology 1 [place], [place] [phone] Raquel Lott, ANGELICA 02/04/2025 Orders Only [facility] 1 [place], [place] [phone] Gamaliel Law, RN 01/20/2025 1:53 PM CDT - 01/20/2025 11:59 PM CDT Hospital Encounter [facility] 1 [place] [address] Discharge Disposition: Discharge to home or self care 01/17/2025 9:28 AM CDT Anesthesia Event [facility] Operating Room 1 [place] [phone] Tommy Obando MD Wiethuchter, Kelli P., NP 01/17/2025 9:10 AM CDT Ancillary Procedure [facility] Operating Room 1 [place] [address] 01/17/2025 9:00 AM CDT - 01/17/2025 5:09 PM CDT Surgery [facility] Operating Room 1 [place] [address] Brenna Chavez MD MITRAL VALVE REPAIR USING 28 MM ANNULOPLASTY BAND AND 4 CM X 4 CM SUPPLE HAKEEM-GUARD PATCH; CABG X 2 ENDO HARVEST SVG - DIAGONAL, SVG-LAD [[id number] (CPT )] 01/16/2025 Documentation [facility] [address] [facility] [address] [place] [address] Wilson Ackerman MD 01/13/2025 11:00 AM CDT - 01/13/2025 12:20 PM CDT Surgery [facility] 1 [place] [address] Peter Pedraza MD LEFT HEART CATHETERIZATION WITH CORONARY ANGIOGRAPHY AND WITH OR WITHOUT LEFT VENTRICULOGRAM [id number] 01/13/2025 Documentation [facility] Case Management 1 [place] [address] Connie Lancaster RN 01/13/2025 Telephone [facility]icians [address] [place] [address] Siena Pereira NP 01/11/2025 Telephone [facility] Medicine Cardiology [address] [facility] 8th [place] [address] [place] [address] Dionna Bran 01/07/2025 2:00 PM CDT Anesthesia Event [facility] 1 [place] [address] Christie Minor MD Dubois, Ashley Michelle, CRNA 01/06/2025 Orders Only [facility] Medicine Neurosurgery [address] [facility] 6th [place] [address] [place] [address] Benjy Cooley MD NPH (normal pressure hydrocephalus) (Primary Dx) 01/06/2025 Telephone [facility] Physicians [address] [place] [address] Maulik Payan MD 01/04/2025 Ophth Exam [facility] Medicine Ophthalmology [address] [facility] 1st [place] [address] Clary Atkins MD 01/04/2025 Orders Only [facility] Neuro Interventional Radiology 1 [place] [address] Vanessa Garcia RN 01/04/2025 Orders Only [facility] Neuro Interventional Radiology 1 [place] [address] Raquel Lott, ANGELICA 01/03/2025 7:45 AM CDT Ancillary Procedure [facility] Medicine Vascular Lab IP [address] [facility] [address] [place] [phone] 01/03/2025 Documentation [facility] Medicine Scheduling [address] [place] [address] Mikie Pelaez CPhT [facility] IP to OP 01/03/2025 Orders Only [facility] Neuro Interventional Radiology 1 [place] [address] Kate Lino, ANGELICA 01/03/2025 Orders Only [facility] Neuro Interventional Radiology 1 [place] [address] Raquel Lott, ANGELICA 01/03/2025 Telephone [facility] [address] [facility] 4th Floor [address] [place] [phone] Dona Langley RN 01/03/2025 Orders Only [facility] Neuro Interventional Radiology 1 [place] [address] Tj Montez, RT 01/03/2025 Orders Only [facility] Neuro Interventional Radiology 1 [place] [address] Lary Leyva, RT 12/31/2024 11:03 PM CDT - 02/10/2025 6:00 PM CDT Hospital Encounter [address] [address] Edward Arthur MD Chang, MD Lam Herman, MD Kathy Bradford Puja, MD Natour, Bashar, MD Aluko, Sheun, MD Bakeer, Jude Escalera MD Paroxysmal atrial fibrillation (HCC) (Primary Dx); 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); Intractable low back pain; Congestive heart failure, unspecified HF chronicity, unspecified heart failure type (HCC); Endocarditis of mitral valve; Mitral valve vegetation; Junctional rhythm; S/P CABG (coronary artery bypass graft); Illness, unspecified Discharge Disposition: Discharge to an Rehab facility 12/31/2024 10:21 PM CDT - 12/31/2024 11:59 PM CDT Hospital Encounter [facility] Merlin Mayberry MD Discharge Disposition: Discharge to home or self care 12/29/2024 Telephone [facility] [address] [address] Pascual Connor MD Medical Question/Miscellaneou s 12/29/2024 Documentation Internal Medicine Edward Arthur MD 12/25/2024 6:05 AM CDT - 12/31/2024 10:20 PM CDT Hospital Encounter [facility] Acute Medicine [address] [place] [address] Gerson Kaplan MD Davis, Cedric Emden II, MD Nations, Demetrio Brenner, Merlin Larson MD Intractable low back pain (Primary Dx) Discharge Disposition: Discharge to home or self care 12/25/2024 Nurse Triage [facility] Patient Access [address] [place] [address] Cornelia Sparrow RN 12/24/2024 Results Follow-Up [facility] [address] [phone] Joy Garner NP XR Spine Lumbar 4 or More Views 12/24/2024 Results Follow-Up [facility] [address] [phone] Joy Garner NP Comprehensive metabolic panel, T4, free, TSH, Additional followed-up results: 6 12/23/2024 10:35 AM CDT Lab [facility] [address] [place] [phone] Chronic hyponatremia 12/23/2024 10:00 AM CDT Office Visit [facility] [address] [phone] Joy Garner NP Chronic hyponatremia (Primary Dx); BMI 27.0-27.9,adult 12/21/2024 8:20 [place] [address] Fatigue, unspecified type; Vitamin D deficiency; Chronic hyponatremia; Mixed hyperlipidemia 12/16/2024 3:04 PM CDT - 12/16/2024 11:59 PM [place] [address] Lumbar radiculopathy; Lumbar spondylosis; Degeneration of intervertebral disc of lumbar region with discogenic back pain and lower extremity pain Discharge Disposition: Discharge to home or self care 12/16/2024 Orders Only [facility] [address] [phone] Pascual Connor MD from Last 3 Months Immunizations Immunization Administration Dates Next Due DTaP 5 Pertussis 04/20/2012,04/20/2012 Flucelvax Influenza Quad 12/21/2024 Flucelvax Influenza Quad MDI 12/21/2024 Influenza, Quadrivalent, Hig h Dose, Preservative Free, Intrr 12/26/2022,01/06/2022,01/06/2021,01/04 Influenza, Quadrivalent, Spl it, Preservative Free, Intramuscular 01/31/2015,02/02/2014 Influenza, Trivalent, High D ose, Split, Preservative Free, Intramuscular 01/06/2024,02/17/2019,02/04/2018,02/03,01/25/2017,01/29/2016,02/07/2015 Influenza, Trivalent, IM (MDV) 01/20/2013,2010 Influenza, Unspecified 12/23/2024(Deferr ed: Patient Refused),12/23/2024(Deferred: Patient Refused),01/10/2023(Deferred: Patient Refused),01/07/2022,01/06/2021, 020(Deferred: Patient Refused),02/17/2019,02/17/2019, 018,02/04/2018 Pneumococcal Conjugate PCV 13 09/16/2014, 015 Pneumococcal Polysaccharide PPV23 03/20/2016 ZOSTER LIVE 04/14/2014,04/14/2014 Surgical History Surgery Date Site/Laterality Comments NECK SURGERY neck surgery TUBAL LIGATION Bilateral tubal ligation OTHER SURGICAL HISTORY thyroid removal COLONOSCOPY [address] [place] LUMBAR PUNCTURE WO INJECTION , DIAGNOSTIC 01/14/2022 N/A NEUROENDOSCOPIC PLACEMENT / REPLACEMENT VENTRICULAR CATHETER W/ ATTACHMENT SHUNT / EXTERNAL DRAIN CATARACT EXTRACTION FL FLUORO GUIDED LUMBAR PUNCTURE 12/29/2024 Right BIOPSY DEEP BONE 01/04/2025 N/A CARDIAC CATHETERIZATION 01/13/2025 N/A Procedure: LEFT HEART CATHETERIZATION WITH CORONARY ANGIOGRAPHY AND WITH OR WITHOUT LEFT VENTRICULOGRAM [id number]; Surgeon: Peter Pedraza MD; Location: [facility] CARDIAC JUKEBOX CHECKER; Service: Cardiovascular; Laterality: N/A; IP infective endocarditis being planned for MVR- need pre-op [facility] Medical devices from this surgery are in the Medical Devices section. MITRAL VALVE REPLACEMENT 01/17/2025 Chest/N/A Procedure: MITRAL VALVE REPAIR USING 28 MM ANNULOPLASTY BAND AND 4 CM X 4 CM SUPPLE HAKEEM-GUARD PATCH; CABG X 2 ENDO HARVEST SVG - DIAGONAL, SVG-LAD; Surgeon: Brenna Chavez MD; Location: [facility] OR POD 3; Service: Cardiothoracic; Laterality: N/A; Medical devices from this surgery are in the Medical Devices section. CORONARY ARTERY BYPASS GRAFT 01/17/2025 Chest/N/A Procedure: CORONARY ARTERY BYPASS GRAFT X2 ENDO VEIN HARVEST SVG-LAD, SVG-DIAGONAL; Surgeon: Brenna Chavez MD; Location: [facility] OR POD 3; Service: Cardiothoracic; Laterality: N/A; Medical devices from this surgery are in the Medical Devices section. Medical History Medical History Date Comments Colon polyp Hypertension Hypothyroidism Arthritis PONV (postoperative nausea and vomiting) Consider pre-medication Sleep apnea Depression HLD (hyperlipidemia) Anxiety Hypersomnia Lumbar radiculopathy Osteoporosis Hydrocephalus with operating shunt (HCC) Incontinence Chronic headaches Acute hypoxic respiratory failure (resolved) GERD (gastroesophageal reflux disease) Delirium 01/22/2025 Hyponatremia 02/08/2022 ABLA (acute blood loss anemia) 01/22/2025 Chronic kidney disease (CKD) , stage III (moderate) (HCC) 02/05/2025 Family History Medical History Relation Name Comments Coronary artery disease Father Ashley nary artery disease, premature; Stroke Maternal Grandmother Cancer Mother Anamaria Morejon Colon cancer Mother Anamaria Morejon Cancer -colon; Stroke Mother Anamaria Morejon Stroke; Transient ischemic attack Mother Anamaria Morejon Depression Other Aunt Anesthesia problems Neg Hx Broken bones Neg Hx Hip fracture Neg Hx Kyphosis Neg Hx Malig Hyperthermia Neg Hx Osteoporosis Neg Hx Pseudochol deficiency Neg Hx Scoliosis Neg Hx Relation Name Status Comments Father Maternal Grandmother Mother Anamaria Morejon Other Aunt Social History Tobacco Use Types Packs/Day Years Used Date Smoking Tobacco: Never Smokeless Tobacco: Never Tobacco Cessation:Counseling Given: Not Answered Alcohol Use Standard Drinks/Week Comments Never 0 [...] week 02/08/2022 How often do you attend [facility] or hindu services? More than 4 times per year 02/08/2022 Do you belong to any clubs o r organizations such as denominational groups, unions, fraternal or athletic groups, or [...] place to sleep or slept in a long-term (including now)? No 02/08/2022 Social Connection and Isolation Panel Answer Date Recorded In a typical week, how many times do you talk on the phone with family, friends, or neighbors? More than three times a week 01/10/2025 How often do you get togethe r with friends or relatives? More than three times a week 01/10/2025 How often do you attend chur ch or hindu services? More than 4 times per year 01/10/2025 Do you belong to any clubs o r organizations such as denominational groups, unions, fraternal or athletic groups, or [...] any time in the past 12 m [facility], were you homeless or living in a long-term (including now)? No 01/10/2025 [facility] Utilities Answer Date Recorded In the [...] on file Legal Sex Female 3:05 PM [facility] Gender Identity Not on file Sexual Orientation Not on file Obstetrics History Para Term AB IAB SAB Ectopic Multiple Livin g Live Births 3 3 3 Date Outcome GA Total Labor Labor/2nd/3rd Weight Sex Type Anes PTL Faith A1 A5 Name Clin Term Term Term Last Filed Vital Signs Vital Sign Reading Time Taken Comments Blood Pressure 92/56 03/16/2025 11:52 AM [facility] Pulse 69 03/16/2025 11:52 AM [facility] Temperature 36.5 C (97.7 F) 03/02/2025 1:06 PM [facility] Respiratory Rate 18 03/02/2025 1:06 PM [facility] Oxygen Saturation 98% 03/16/2025 11:52 AM [facility] Inhaled Oxygen Concentration - - Weight 64.2 kg (141 lb 9.6 oz) 03/16/2025 11:52 AM [facility] Height 157.5 cm (5' 2) 03/16/2025 11:52 AM [facility] Body Mass Index 25.9 03/16/2025 11:52 AM [facility] Plan of Treatment Health Maintenance Due Date Last Done Comments Hepatitis B Screening 1963 Zoster Vaccine (1 of 2) 06/09/2014 04/14/2014, 04/14 DTaP/Tdap/Td Vaccine (3 - Tdap) 04/20/2022 3, 04/20/2012 Well Visit 65+ 07/01/2024 07/02/2023, 12/15, 07/07/2018, Additional history exists Covid-19 Vaccine (2024-2 6 season) 2024 03/30/2022, 01/10/2021, 06/27/2020, Additional history exists Depression Screening 12/29/2025 12/29/2024, 12/23/2024, 09/22/2024, Additional history exists Fall Risk Assessment 02/10/2026 02/10/2025, 12/23/2024, 09/22/2024, Additional history exists Osteoporosis Screening-Bone Density Scan 11/04/2026 11/04/2024, 06/26/2023, 03/15/2020 Pneumococcal vaccine 65+ Completed 016, 09/16/2014, 09/16/2014 Hepatitis C Screening Completed 03/21/2017 Colon Cancer Screening-CT Colonography Discontinued 08/26/2022, 06/02/2017, 12/31/2012, Additional history exists Colon Cancer Screening-Colonoscopy Discontinued 08/26/2022, 06/02/2017, 12/31/2012, Additional history exists Colon Cancer Screening-DNA Stool Discontinued 08/26/2022, 06/02/2017, 12/31/2012, Additional history exists Colon Cancer Screening-FIT Discontinued 08/26, 06/02/2017, 12/31/2012, Additional history exists Colon Cancer Screening-FOBT Discontinued 08/12, 06/02/2017, 12/31/2012, Additional history exists Colon Cancer Screening-Sigmoidoscopy Discontinued 08/26/2022, 06/02/2017, 12/31/2012, Additional history exists Colorectal Cancer Screening Discontinued Breast Cancer Screening-Mammogram Discontinued 09/25/2024, 06/26/2023, 05/28/2022, Additional history exists Influenza Vaccine Completed 12/21/2024, , 01/06/2024, Additional history exists Medical Devices Implanted Type Area Block Engraver Device Identifier Shelf Expiration Date Model / Serial / Lot Medtronic Inc Dale Antibiotic Kit Catheter Sterile Latex Free [id number] - Sna - [id number] Implanted:Qty: 1 on 01/18/2022 by Benjy Cooley MD at [facility] Catheter Right: Head Med[employer]onic Inc 02/20/2023 [id number] / [id number] / [id number] Other - See Comments Other - see comments Neck Other Description:Titanium plate i n neck with screws Sophysa Usa Polaris Argenta Hole Sully Adjustable Pressure Antichamber Valve Spva - [id number] - [id number] Implanted:Qty: 1 on 01/18/2022 by Benjy Cooley MD at [facility] Prosthetic Valve Right: Abdomen Sophysa Usa 03/14/2026 SPVA / [id number] / [id number] [employer] Loco Angio-Seal Vip 6fr Closere Device [id number] - [id number] - [id number] Implanted:Qty: 1 on 01/13/2025 by Peter Pedraza MD at [facility] Vascular Closure Device Right: Femoral [employer] Loco 07/23/2025 [id number] / [id number] / [id number] Description:RFA [employer] Certas Inline Siphonguard Valve Shunt [id number] - [id number] Implanted:Qty: 1 on 02/14/2022 by Lorna Gutierres MD at [facility] Abdomen [employer] 08/12/2023 [id number] / / [id number] Medtronic Inc Cg Future [id number] Mm Vega Eyelet Design Cross Sectional Profile Stiffener Band Annuloplasty [id number] - [id number] - [id number] Implanted:Qty: 1 on 01/17/2025 by Brenna Chavez MD at [facility] N/A: Heart [employer] Inc [id number] 09/09/2027 [id number] / [id number] / [employer] Loco Patch Cardiovascular 4x4cm Supple Hakeem-Guard [employer] [id number] - [id number] - [id number] Implanted:Qty: 1 on 01/17/2025 by Brenna Chavez MD at [facility] N/A: Heart [employer] Loco [id number] 06/21/2026 [id number] / [id number] / [id number] Procedures Procedure Name Priority Date/Time Associated Diagnosis Comments EGFR Routine 03/02/2025 8:12 PM [facility] DIFFERENTIAL AUTO Routine 03/02/2025 8:12 PM [facility] CBC WITH AUTO DIFFERENTIAL Routine 03/02/2025 8:12 PM [facility] CREATINE KINASE (CK), TOTAL Routine 03/02/2025 8:12 PM [facility] COMPREHENSIVE METABOIC PANEL, SERUM Routine 03/02/2025 8:12 PM [facility] EGFR Routine 03/02/2025 3:15 PM [facility] Acute osteomyelitis of spine (HCC) DIFFERENTIAL AUTO Routine 03/02/2025 3:15 PM [facility] Acute osteomyelitis of spine (HCC) CREATINE KINASE (CK), TOTAL Routine 03/02/2025 3:15 PM [facility] Acute osteomyelitis of spine (HCC) COMPREHENSIVE METABOLIC PANEL Routine 03/02/2025 3:15 PM [facility] Acute osteomyelitis of spine (HCC) CBC WITH AUTO DIFFERENTIAL Routine 03/02/2025 3:15 PM [facility] Acute osteomyelitis of spine (HCC) MRI SPINE TOTAL COMPLETE W WO CONTRAST Schedule Routine, Read Routine (OP Routine) 03/01/2025 11:49 AM [facility] Epidural abscess SCAN - LABS 02/28/2025 EGFR Routine 02/10/2025 4:25 AM CDT DIFFERENTIAL AUTO Routine 02/10/2025 4:25 AM CDT MAGNESIUM Routine 02/10/2025 4:25 AM CDT BASIC METABOLIC PANEL Routine 02/10/2025 4:25 AM CDT CBC WITH AUTO DIFFERENTIAL Routine 02/10/2025 4:25 AM CDT INFECTION PREVENTION BLADE AURIS PCR, SURVEILLANCE Routine 02/09/2025 2:43 PM CDT ECG 12-LEAD Routine 02/09/2025 12:39 PM CDT DIFFERENTIAL AUTO Routine 02/09/2025 5:28 AM CDT PHOSPHORUS Routine 02/09/2025 5:28 AM CDT CBC WITH AUTO DIFFERENTIAL Routine 02/09/2025 5:28 AM CDT HEPATIC FUNCTION PANEL Routine 9:34 PM CDT EGFR Routine 02/08/2025 9:34 PM CDT MAGNESIUM Routine 02/08/2025 9:34 PM CDT BASIC METABOLIC PANEL Routine 02/08/2025 9:34 PM CDT TYPE AND SCREEN Timed 02/08/2025 9:34 PM CDT POCT GLUCOSE DEVICE Routine 02/08/2025 11:49 AM CDT ECG 12-LEAD Routine 02/08/2025 7:51 AM CDT POCT GLUCOSE DEVICE Routine 02/08/2025 7:34 AM CDT CREATINE KINASE (CK), TOTAL Routine 02/07/2025 9:25 PM CDT EGFR Routine 02/07/2025 9:25 PM CDT PHOSPHORUS Routine 02/07/2025 9:25 PM CDT MAGNESIUM Routine 02/07/2025 9:25 PM CDT CBC WITHOUT DIFFERENTIAL Routine 025 9:25 PM CDT BASIC METABOLIC PANEL Routine 02/07/2025 9:25 PM CDT US UPPER EXTREMITY RIGHT LIMITED IP Routine 02/07/2025 3:53 PM CDT INFECTION PREVENTION BLADE AURIS PCR, SURVEILLANCE Routine 02/07/2025 4:52 AM CDT CBC WITH AUTO DIFFERENTIAL Routine 02/06/2025 9:17 PM CDT DIFFERENTIAL AUTO Routine 02/06/2025 9:17 PM CDT EGFR Routine 02/06/2025 9:17 PM CDT PHOSPHORUS Routine 02/06/2025 9:17 PM CDT MAGNESIUM Routine 02/06/2025 9:17 PM CDT CBC WITHOUT DIFFERENTIAL Routine 025 9:17 PM CDT BASIC METABOLIC PANEL Routine 02/06/2025 9:17 PM CDT ERYTHROCYTE SEDIMENTATION RATE STAT 02/06/2025 1:33 PM CDT CRP (ACUTE PHASE) Timed 02/06/2025 12:45 PM CDT ECG 12-LEAD Routine 02/06/2025 7:34 AM CDT EGFR Routine 02/05/2025 10:23 PM CDT PHOSPHORUS Routine 02/05/2025 10:23 PM CDT MAGNESIUM Routine 02/05/2025 10:23 PM CDT CBC WITHOUT DIFFERENTIAL Routine 025 10:23 PM CDT BASIC METABOLIC PANEL Routine 02/05/2025 10:23 PM CDT TYPE AND SCREEN Timed 02/05/2025 10:23 PM CDT EGFR Routine 02/04/2025 9:21 PM CDT PHOSPHORUS Routine 02/04/2025 9:21 PM CDT MAGNESIUM Routine 02/04/2025 9:21 PM CDT CBC WITHOUT DIFFERENTIAL Routine 025 9:21 PM CDT BASIC METABOLIC PANEL Routine 02/04/2025 9:21 PM CDT XR SPINE CERVICAL 2 OR 3 VIEWS IP Routine 02/04/2025 8:44 PM CDT ECG 12-LEAD Routine 02/04/2025 5:22 AM CDT MRI SPINE CERVICAL THORACIC W WO CONTRAST IP Routine 02/03/2025 11:24 PM CDT EGFR Routine 02/03/2025 9:32 PM CDT PHOSPHORUS Routine 02/03/2025 9:32 PM CDT MAGNESIUM Routine 02/03/2025 9:32 PM CDT CBC WITHOUT DIFFERENTIAL Routine 025 9:32 PM CDT BASIC METABOLIC PANEL Routine 02/03/2025 9:32 PM CDT INFECTION PREVENTION BLADE AURIS PCR, SURVEILLANCE Routine 02/03/2025 6:26 PM CDT XR CHEST PA LATERAL 2 VIEWS IP Routine 02/03/2025 10:47 AM CDT DIFFERENTIAL AUTO Routine 02/02/2025 9:28 PM CDT COMPREHENSIVE METABOLIC PANEL Routine 02/02/2025 9:28 PM CDT EGFR Routine 02/02/2025 9:28 PM CDT PHOSPHORUS Routine 02/02/2025 9:28 PM CDT MAGNESIUM Routine 02/02/2025 9:28 PM CDT CBC WITHOUT DIFFERENTIAL Routine 025 9:28 PM CDT TYPE AND SCREEN Timed 02/02/2025 9:28 PM CDT EGFR Routine 02/01/2025 8:46 PM CDT PHOSPHORUS Routine 02/01/2025 8:46 PM CDT MAGNESIUM Routine 02/01/2025 8:46 PM CDT CBC WITHOUT DIFFERENTIAL Routine 025 8:46 PM CDT BASIC METABOLIC PANEL Routine 02/01/2025 8:46 PM CDT EGFR Routine 02/01/2025 5:57 PM CDT PHOSPHORUS Routine 02/01/2025 5:57 PM CDT MAGNESIUM Routine 02/01/2025 5:57 PM CDT CBC WITHOUT DIFFERENTIAL Routine 025 5:57 PM CDT BASIC METABOLIC PANEL Routine 02/01/2025 5:57 PM CDT ECG 12-LEAD Routine 02/01/2025 6:39 AM CDT EGFR Routine 01/31/2025 8:38 PM CDT BASIC METABOLIC PANEL Routine 01/31/2025 8:38 PM CDT CREATINE KINASE (CK), TOTAL Routine 01/31/2025 8:38 PM CDT PHOSPHORUS Routine 01/31/2025 8:38 PM CDT MAGNESIUM Routine 01/31/2025 8:38 PM CDT CBC WITHOUT DIFFERENTIAL Routine 025 8:38 PM CDT EGFR Routine 01/30/2025 8:48 PM CDT TYPE AND SCREEN Timed 01/30/2025 8:48 PM CDT CBC WITHOUT DIFFERENTIAL Routine 025 8:48 PM CDT BASIC METABOLIC PANEL Routine 01/30/2025 8:48 PM CDT ECG 12-LEAD Routine 01/30/2025 3:59 AM CDT HEPATIC FUNCTION PANEL Routine 5:07 PM CDT EGFR Routine 01/29/2025 5:07 PM CDT PROTIME-INR STAT 01/29/2025 5:07 PM CDT CBC WITHOUT DIFFERENTIAL Routine 025 5:07 PM CDT BASIC METABOLIC PANEL Routine 01/29/2025 5:07 PM CDT ECG 12-LEAD Routine 01/29/2025 1:47 PM CDT EGFR Routine 01/28/2025 9:06 PM CDT CBC WITHOUT DIFFERENTIAL Routine 025 9:06 PM CDT BASIC METABOLIC PANEL Routine 01/28/2025 9:06 PM CDT EGFR Routine 01/27/2025 9:57 PM CDT CBC WITHOUT DIFFERENTIAL Routine 025 9:57 PM CDT BASIC METABOLIC PANEL Routine 01/27/2025 9:57 PM CDT EGFR Timed 01/27/2025 12:09 PM CDT CBC WITHOUT DIFFERENTIAL Timed 025 12:09 PM CDT BASIC METABOLIC PANEL Timed 01/27/2025 12:09 PM CDT DIFFERENTIAL AUTO Timed 01/27/2025 6:22 AM CDT APTT STAT 01/27/2025 6:22 AM CDT TYPE AND SCREEN Timed 01/27/2025 6:22 AM CDT CBC WITH AUTO DIFFERENTIAL Timed 01/27/2025 6:22 AM CDT ECG 12-LEAD Routine 01/27/2025 3:45 AM CDT EGFR Timed 01/26/2025 8:54 PM CDT APTT STAT 01/26/2025 8:54 PM CDT COMPREHENSIVE METABOLIC PANEL Timed 01/26/2025 8:54 PM CDT CBC WITHOUT DIFFERENTIAL Routine 025 8:[address] HEAD WO CONTRAST Timed 01/26/2025 3:58 PM CDT EGFR Timed 01/26/2025 10:05 AM CDT BASIC METABOLIC PANEL Timed 01/26/2025 10:05 AM CDT INFECTION PREVENTION BLADE AURIS PCR, SURVEILLANCE Routine 01/26/2025 9:54 AM CDT APTT STAT 01/26/2025 4:45 AM CDT HEPATIC FUNCTION PANEL Routine 10:13 PM CDT EGFR Routine 01/25/2025 10:13 PM CDT APTT STAT 01/25/2025 10:13 PM CDT AMMONIA Routine 01/25/2025 10:13 PM CDT CBC WITHOUT DIFFERENTIAL Routine 025 10:13 PM CDT BASIC METABOLIC PANEL Routine 01/25/2025 10:13 PM CDT APTT STAT 01/25/2025 3:03 PM CDT ECG 12-LEAD Routine 01/25/2025 4:45 AM CDT HEPATIC FUNCTION PANEL Routine 10:08 PM CDT DIFFERENTIAL AUTO Routine 01/24/2025 10:08 PM CDT EGFR Routine 01/24/2025 10:08 PM CDT TYPE AND SCREEN Timed 01/24/2025 10:08 PM CDT CREATINE KINASE (CK), TOTAL Timed 01/24/2025 10:08 PM CDT CBC WITHOUT DIFFERENTIAL Routine 025 10:08 PM CDT BASIC METABOLIC PANEL Routine 01/24/2025 10:08 PM CDT TRANSTHORACIC ECHO (TTE) COMPLETE W DOPPLER/CF W CONTRAST ED Urgent/IP Urgent 01/24/2025 5:27 PM CDT POTASSIUM, WHOLE BLOOD STAT 1:01 PM CDT MAGNESIUM STAT 01/24/2025 1:01 PM CDT ECG 12-LEAD STAT 01/24/2025 12:41 PM CDT ECG 12-LEAD Routine 01/24/2025 9:02 AM CDT XR CHEST 1 VIEW IP Routine 01/23/2025 10:53 PM CDT EGFR Routine 01/23/2025 9:13 PM CDT CBC WITHOUT DIFFERENTIAL Routine 025 9:13 PM CDT BASIC METABOLIC PANEL Routine 01/23/2025 9:13 PM CDT TROPONIN I HIGH-SENSITIVITY 2-HOUR Timed 01/23/2025 9:13 PM CDT MAGNESIUM Timed 01/23/2025 12:44 PM CDT POTASSIUM, WHOLE BLOOD Timed 12:44 PM CDT TROPONIN I HIGH-SENSITIVITY 6-HOUR Timed 01/23/2025 3:56 AM CDT TROPONIN I HIGH-SENSITIVITY 4-HOUR Timed 01/23/2025 2:23 AM CDT TROPONIN I HIGH-SENSITIVITY 2-HOUR Timed 01/23/2025 12:09 AM CDT CRITICAL RESULT CALLBACK CARDIO CHEM Routine 01/22/2025 10:07 PM CDT TROPONIN I HIGH-SENSITIVITY SERIES (BASELINE, 2HR, 4HR, 6HR) Routine 01/22/2025 10:07 PM CDT ECG 12-LEAD STAT 01/22/2025 9:53 PM CDT EGFR Routine 01/22/2025 9:24 PM CDT CBC WITHOUT DIFFERENTIAL Routine 025 9:24 PM CDT BASIC METABOLIC PANEL Routine 01/22/2025 9:24 PM CDT XR CHEST 1 VIEW IP Routine 01/22/2025 11:04 AM CDT XR HUMERUS RIGHT 2 OR MORE VIEWS ED Urgent/IP Urgent 01/22/2025 9:03 AM CDT POCT GLUCOSE DEVICE Routine 01/21/2025 9:13 PM CDT EGFR Routine 01/21/2025 9:13 PM CDT PHOSPHORUS Routine 01/21/2025 9:13 PM CDT MAGNESIUM Routine 01/21/2025 9:13 PM CDT CBC WITHOUT DIFFERENTIAL Routine 025 9:13 PM CDT BASIC METABOLIC PANEL Routine 01/21/2025 9:13 PM CDT POCT GLUCOSE DEVICE Routine 01/21/2025 3:06 PM CDT POCT GLUCOSE DEVICE Routine 01/21/2025 12:19 PM CDT POCT GLUCOSE DEVICE Routine 01/21/2025 7:37 AM CDT CRITICAL CARE Routine 01/21/2025 6:20 AM CDT 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) POCT GLUCOSE DEVICE Routine 01/21/2025 3:33 AM CDT POCT GLUCOSE DEVICE Routine 01/20/2025 11:57 PM CDT EGFR Routine 01/20/2025 10:03 PM CDT PHOSPHORUS Routine 01/20/2025 10:03 PM CDT MAGNESIUM Routine 01/20/2025 10:03 PM CDT BASIC METABOLIC PANEL Routine 01/20/2025 10:03 PM CDT CBC WITHOUT DIFFERENTIAL Routine 025 10:03 PM CDT TYPE AND SCREEN Timed 01/20/2025 10:03 PM CDT XR CHEST 1 VIEW IP Routine 01/20/2025 9:22 PM CDT POCT GLUCOSE DEVICE Routine 01/20/2025 7:57 PM CDT CRITICAL CARE Routine 01/20/2025 6:44 PM CDT Endocarditis of mitral valve POCT GLUCOSE DEVICE Routine 01/20/2025 3:11 PM CDT FL MODIFIED BARIUM SWALLOW W VIDEO IP Routine 01/20/2025 2:08 PM CDT SENIOR QUALITY TECHNICIAN EVALUATE AND TREAT VIDEOFLUOROSCOPIC SWALLOW STUDY Routine 01/20/2025 2:04 PM CDT SENIOR QUALITY TECHNICIAN EVALUATE AND TREAT Routine 2:04 PM CDT POCT GLUCOSE DEVICE Routine 01/20/2025 11:50 AM CDT CBC WITHOUT DIFFERENTIAL Routine 025 11:50 AM CDT TRANSFUSE RED BLOOD CELLS Timed 2024 7:34 AM CDT POC BLOOD GAS AND CHEMISTRIES, ARTERIAL Routine 01/20/2025 7:23 AM CDT PREPARE RBC Timed 01/20/2025 7:12 AM CDT IMMATURE PLATELET FRACTION STAT 01/20/2025 6:44 AM CDT CBC WITHOUT DIFFERENTIAL STAT 025 6:44 AM CDT CRITICAL CARE Routine 01/20/2025 6:37 AM CDT 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) POCT GLUCOSE DEVICE Routine 01/20/2025 5:20 AM CDT EGFR Routine 01/19/2025 11:13 PM CDT PHOSPHORUS Routine 01/19/2025 11:13 PM CDT MAGNESIUM Routine 01/19/2025 11:13 PM CDT BASIC METABOLIC PANEL Routine 01/19/2025 11:13 PM CDT CBC WITHOUT DIFFERENTIAL Routine 025 11:13 PM CDT POCT GLUCOSE DEVICE Routine 01/19/2025 11:12 PM CDT XR CHEST 1 VIEW IP Routine 01/19/2025 8:44 PM CDT POCT GLUCOSE DEVICE Routine 01/19/2025 7:46 PM CDT CRITICAL CARE Routine 01/19/2025 7:24 PM CDT Endocarditis of mitral valve XR CHEST 1 VIEW ED Urgent/IP Urgent 01/19/2025 5:45 PM CDT POCT GLUCOSE DEVICE Routine 01/19/2025 5:07 PM CDT POTASSIUM, WHOLE BLOOD STAT 3:25 PM CDT POCT GLUCOSE DEVICE Routine 01/19/2025 3:24 PM CDT SENIOR QUALITY TECHNICIAN EVALUATE AND TREAT FIBEROPTIC ENDOSCOPIC SWALLOW Routine 01/19/2025 2:46 PM CDT XR CHEST 1 VIEW ED Urgent/IP Urgent 01/19/2025 12:05 PM CDT POCT GLUCOSE DEVICE Routine 01/19/2025 11:41 AM CDT HIT ANTIBODIES W/REFLEX TO SEROTONIN RELEASE ASSAY (SALTY) Routine 01/19/2025 11:38 AM CDT INFECTION PREVENTION BLADE AURIS PCR, SURVEILLANCE Routine 01/19/2025 9:53 AM CDT BLOOD GAS, ARTERIAL STAT 01/19/2025 7:46 AM CDT CBC WITHOUT DIFFERENTIAL Routine 025 7:45 AM CDT HEMOGLOBIN TOTAL, PULMONARY ARTERY STAT 01/19/2025 7:45 AM CDT LACTATE, WHOLE BLOOD STAT 01/19/2025 7:45 AM CDT OXYHEMOGLOBIN, PULMONARY ARTERY STAT 01/19/2025 7:45 AM CDT POTASSIUM, WHOLE BLOOD STAT 7:45 AM CDT CALCIUM,IONIZED, WHOLE BLOOD STAT 01/19/2025 7:45 AM CDT POCT GLUCOSE DEVICE Routine 01/19/2025 7:40 AM CDT CRITICAL CARE Routine 01/19/2025 7:15 AM CDT 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) CBC WITHOUT DIFFERENTIAL Routine 025 4:47 AM CDT POCT GLUCOSE DEVICE Routine 01/19/2025 4:45 AM CDT BLOOD GAS, ARTERIAL STAT 01/19/2025 4:38 AM CDT HEMOGLOBIN TOTAL, PULMONARY ARTERY STAT 01/19/2025 4:38 AM CDT LACTATE, WHOLE BLOOD STAT 01/19/2025 4:38 AM CDT OXYHEMOGLOBIN, PULMONARY ARTERY STAT 01/19/2025 4:38 AM CDT TRANSFUSE PLATELETS Timed 01/19/2025 3:00 AM CDT PREPARE PLATELETS Timed 01/19/2025 1:41 AM CDT TRANSFUSE RED BLOOD CELLS Timed 2024 1:12 AM CDT PREPARE RBC Timed 01/19/2025 12:59 AM CDT HEMOGLOBIN TOTAL, PULMONARY ARTERY STAT 01/19/2025 12:54 AM CDT BLOOD GAS, ARTERIAL STAT 01/19/2025 12:54 AM CDT LACTATE, WHOLE BLOOD STAT 01/19/2025 12:54 AM CDT OXYHEMOGLOBIN, PULMONARY ARTERY STAT 01/19/2025 12:54 AM CDT POCT GLUCOSE DEVICE Routine 01/18/2025 11:48 PM CDT EGFR Timed 01/18/2025 11:42 PM CDT MANUAL DIFFERENTIAL Timed 01/18/2025 11:42 PM CDT IMMATURE PLATELET FRACTION Timed 01/18/2025 11:42 PM CDT HEMOGLOBIN TOTAL, PULMONARY ARTERY STAT 01/18/2025 11:42 PM CDT BLOOD GAS, ARTERIAL STAT 01/18/2025 11:42 PM CDT OXYHEMOGLOBIN, PULMONARY ARTERY STAT 01/18/2025 11:42 PM CDT COMPREHENSIVE METABOLIC PANEL Timed 01/18/2025 11:42 PM CDT CBC WITH AUTO DIFFERENTIAL Timed 01/18/2025 11:42 PM CDT PHOSPHORUS Routine 01/18/2025 11:42 PM CDT MAGNESIUM Routine 01/18/2025 11:42 PM CDT XR CHEST 1 VIEW IP Routine 01/18/2025 8:51 PM CDT POCT GLUCOSE DEVICE Routine 01/18/2025 7:50 PM CDT HEMOGLOBIN TOTAL, PULMONARY ARTERY STAT 01/18/2025 7:49 PM CDT BLOOD GAS, ARTERIAL STAT 01/18/2025 7:49 PM CDT OXYHEMOGLOBIN, PULMONARY ARTERY STAT 01/18/2025 7:49 PM CDT CRITICAL CARE Routine 01/18/2025 7:09 PM CDT Endocarditis of mitral valve XR ABDOMEN AP 1 VIEW ED Urgent/IP Urgent 01/18/2025 6:10 PM CDT OXYHEMOGLOBIN, CENTRAL VENOUS STAT 01/18/2025 5:50 PM CDT BLOOD GAS, ARTERIAL STAT 01/18/2025 4:19 PM CDT OXYHEMOGLOBIN, PULMONARY ARTERY STAT 01/18/2025 4:19 PM CDT HEMOGLOBIN TOTAL, PULMONARY ARTERY STAT 01/18/2025 4:19 PM CDT POCT GLUCOSE DEVICE Routine 01/18/2025 4:18 PM CDT POCT GLUCOSE DEVICE Routine 01/18/2025 11:16 AM CDT POCT GLUCOSE DEVICE Routine 01/18/2025 11:15 AM CDT BLOOD GAS, ARTERIAL STAT 01/18/2025 7:53 AM CDT HEMOGLOBIN TOTAL, PULMONARY ARTERY STAT 01/18/2025 7:53 AM CDT OXYHEMOGLOBIN, PULMONARY ARTERY STAT 01/18/2025 7:53 AM CDT POTASSIUM, WHOLE BLOOD STAT 7:53 AM CDT POCT GLUCOSE DEVICE Routine 01/18/2025 7:52 AM CDT CRITICAL CARE Routine 01/18/2025 6:44 AM CDT 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) INFECTION PREVENTION BLADE AURIS PCR, SURVEILLANCE Routine 01/18/2025 6:34 AM CDT POCT GLUCOSE DEVICE Routine 01/18/2025 6:[address] HEAD WO CONTRAST IP Routine 01/18/2025 5:17 AM CDT POCT GLUCOSE DEVICE Routine 01/18/2025 3:36 AM CDT EGFR Routine 01/18/2025 3:31 AM CDT HEMOGLOBIN TOTAL, PULMONARY ARTERY STAT 01/18/2025 3:31 AM CDT BLOOD GAS, ARTERIAL STAT 01/18/2025 3:31 AM CDT OXYHEMOGLOBIN, PULMONARY ARTERY STAT 01/18/2025 3:31 AM CDT PHOSPHORUS Routine 01/18/2025 3:31 AM CDT MAGNESIUM Routine 01/18/2025 3:31 AM CDT BASIC METABOLIC PANEL Routine 01/18/2025 3:31 AM CDT CBC WITHOUT DIFFERENTIAL Routine 3:31 AM CDT TYPE AND SCREEN Timed 01/18/2025 3:31 AM CDT POCT GLUCOSE DEVICE Routine 01/18/2025 2:13 AM CDT POCT GLUCOSE DEVICE Routine 01/18/2025 12:03 AM CDT HEMOGLOBIN TOTAL, PULMONARY ARTERY STAT 01/17/2025 11:57 PM CDT BLOOD GAS, ARTERIAL STAT 01/17/2025 11:57 PM CDT OXYHEMOGLOBIN, PULMONARY ARTERY STAT 01/17/2025 11:57 PM CDT XR ABDOMEN AP 1 VIEW ED Urgent/IP Urgent 01/17/2025 11:53 PM CDT POCT GLUCOSE DEVICE Routine 01/17/2025 10:32 PM CDT BLOOD GAS, ARTERIAL STAT 01/17/2025 10:32 PM CDT POCT GLUCOSE DEVICE Routine 01/17/2025 8:46 PM CDT POCT GLUCOSE DEVICE Routine 01/17/2025 7:03 PM CDT OXYHEMOGLOBIN, PULMONARY ARTERY STAT 01/17/2025 7:03 PM CDT POTASSIUM, WHOLE BLOOD STAT 7:03 PM CDT HEMOGLOBIN TOTAL, PULMONARY ARTERY STAT 01/17/2025 7:03 PM CDT LACTATE, WHOLE BLOOD STAT 01/17/2025 7:03 PM CDT BLOOD GAS, ARTERIAL STAT 01/17/2025 7:03 PM CDT CRITICAL CARE Routine 01/17/2025 6:34 PM CDT 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) XR ABDOMEN AP 1 VIEW IP Routine 01/17/2025 5:47 PM CDT XR CHEST 1 VIEW ED Urgent/IP Urgent 01/17/2025 5:47 PM CDT POC BLOOD GAS AND CHEMISTRIES, ARTERIAL Routine 01/17/2025 5:43 PM CDT OXYHEMOGLOBIN, PULMONARY ARTERY STAT 01/17/2025 5:37 PM CDT EGFR STAT 01/17/2025 4:18 PM CDT CREATINE KINASE (CK), TOTAL STAT 01/17/2025 4:18 PM CDT APTT STAT 01/17/2025 4:18 PM CDT PROTIME-INR STAT 01/17/2025 4:18 PM CDT CBC WITHOUT DIFFERENTIAL STAT 025 4:18 PM CDT MAGNESIUM STAT 01/17/2025 4:18 PM CDT BASIC METABOLIC PANEL STAT 01/17/2025 4:18 PM CDT TYPE AND SCREEN Timed 01/17/2025 4:18 PM CDT POC BLOOD GAS AND CHEMISTRIES, ARTERIAL Routine 01/17/2025 4:05 PM CDT CRITICAL CARE Routine 01/17/2025 3:04 PM CDT TRANSFUSE RED BLOOD CELLS Timed 2024 3:00 PM CDT POC BLOOD GAS AND CHEMISTRIES, ARTERIAL Routine 01/17/2025 2:59 PM CDT POCT PROTHROMBIN TIME Routine 01/17/2025 2:54 PM CDT POCT HEPARIN/ACT CPB Routine 01/17/2025 2:42 PM CDT POCT PARTIAL THROMBOPLASTIN TIME (PTT) Routine 01/17/2025 2:40 PM CDT POCT PLATELET COUNT AND HEMATOCRIT Routine 01/17/2025 2:37 PM CDT TRANSFUSE RED BLOOD CELLS Timed 2024 2:35 PM CDT POC BLOOD GAS AND CHEMISTRIES, ARTERIAL Routine 01/17/2025 2:34 PM CDT POCT HEPARIN/ACT CPB Routine 01/17/2025 2:14 PM CDT MYCOLOGY (FUNGAL) CULTURE Routine 2024 2:13 PM CDT MYCOBACTERIOLOGY AFB CULTURE AND ACID-FAST STAIN Routine 01/17/2025 2:13 PM CDT TISSUE AEROBIC AND ANAEROBIC CULTURE AND GRAM STAIN Routine 01/17/2025 2:13 PM CDT POCT HEPARIN/ACT CPB Routine 01/17/2025 1:39 PM CDT POCT HEPARIN/ACT CPB Routine 01/17/2025 1:10 PM CDT POC BLOOD GAS AND CHEMISTRIES, ARTERIAL Routine 01/17/2025 1:01 PM CDT OH AN PROCEDURE PLACEHOLDER Routine 01/17/2025 12:53 PM CDT TRANSFUSE RED BLOOD CELLS Timed 2024 12:51 PM CDT POCT HEPARIN/ACT CPB Routine 01/17/2025 12:40 PM CDT TRANSFUSE RED BLOOD CELLS Timed 2024 12:33 PM CDT POC BLOOD GAS AND CHEMISTRIES, ARTERIAL Routine 01/17/2025 12:31 PM CDT POCT HEPARIN/ACT CPB Routine 01/17/2025 12:01 PM CDT POC BLOOD GAS AND CHEMISTRIES, ARTERIAL Routine 01/17/2025 11:53 AM CDT ANESTHESIA ARTERIAL LINE PLACEMENT Routine 01/17/2025 11:14 AM CDT POCT HEPARIN DOSE RESPONSE, CPB Routine 01/17/2025 11:12 AM CDT ANESTHESIA CENTRAL VENOUS LINE PLACEMENT Routine 01/17/2025 11:11 AM CDT ANESTHESIA INTUBATION Routine 01/17/2025 11:10 AM CDT POC BLOOD GAS AND CHEMISTRIES, ARTERIAL Routine 01/17/2025 11:04 AM CDT PREPARE PLASMA STAT 01/17/2025 9:30 AM CDT CORONARY ARTERY BYPASS GRAFT. 01/17/2025 9:28 AM CDT Endocarditis of mitral valve Case Notes er Zahraa phone call place in [place] for edits. [email or web address]: Spoke w/Phuc, she is waiting to see if Dr. Chavez wants this case to start later d/t being in the [employer] first. SR9/30 - Per Kate case in [place] for reschedule. NB OH REPLACEMENT MITRAL VALVE W/CARDIOPULMONARY BYP 01/17/2025 9:28 AM CDT Endocarditis of mitral valve Case Notes er [place] phone call place in [place] for edits. [id number]: Spoke w/Phuc, she is waiting to see if Dr. Chavez wants this case to start later d/t being in the [employer] first. SR9/30 - Per Kate case in [place] for reschedule. NB JANELLE ADD-ON FOR OR Routine 01/17/2025 9:06 AM CDT PREPARE RBC Timed 01/17/2025 6:25 AM CDT CREATINE KINASE (CK), TOTAL Routine 01/16/2025 8:33 PM CDT EGFR Routine 01/16/2025 8:33 PM CDT APTT Routine 01/16/2025 8:33 PM CDT PROTIME-INR Routine 01/16/2025 8:33 PM CDT MAGNESIUM Routine 01/16/2025 8:33 PM CDT TYPE AND SCREEN Timed 01/16/2025 8:33 PM CDT CBC WITHOUT DIFFERENTIAL Routine 025 8:33 PM CDT COMPREHENSIVE METABOLIC PANEL Routine 01/16/2025 8:33 PM CDT EGFR Routine 01/15/2025 9:18 PM CDT MAGNESIUM Routine 01/15/2025 9:18 PM CDT CBC WITHOUT DIFFERENTIAL Routine 025 9:18 PM CDT COMPREHENSIVE METABOLIC PANEL Routine 01/15/2025 9:18 PM CDT MAGNESIUM Routine 01/14/2025 11:33 PM CDT EGFR Routine 01/14/2025 11:33 PM CDT CBC WITHOUT DIFFERENTIAL Routine 025 11:33 PM CDT COMPREHENSIVE METABOLIC PANEL Routine 01/14/2025 11:33 PM CDT MAGNESIUM Routine 01/13/2025 8:29 PM CDT PHOSPHORUS Routine 01/13/2025 8:29 PM CDT EGFR Routine 01/13/2025 8:29 PM CDT DIFFERENTIAL AUTO Routine 01/13/2025 8:29 PM CDT COMPREHENSIVE METABOLIC PANEL Routine 01/13/2025 8:29 PM CDT CBC WITH AUTO DIFFERENTIAL Routine 01/13/2025 8:29 PM CDT LEFT HEART CATHETERIZATION WITH CORONARY ANGIOGRAPHY AND WITH AND WITHOUT LEFT VENTRICULOGRAM Routine 01/13/2025 12:47 PM CDT Congestive heart failure, unspecified HF chronicity, unspecified heart failure type (HCC) CBC WITHOUT DIFFERENTIAL Routine 025 12:30 PM CDT MAGNESIUM Routine 01/12/2025 9:06 PM CDT PHOSPHORUS Routine 01/12/2025 9:06 PM CDT EGFR Routine 01/12/2025 9:06 PM CDT DIFFERENTIAL AUTO Routine 01/12/2025 9:06 PM CDT COMPREHENSIVE METABOLIC PANEL Routine 01/12/2025 9:06 PM CDT CBC WITH AUTO DIFFERENTIAL Routine 01/12/2025 9:06 PM CDT EGFR Routine 01/11/2025 9:02 PM CDT DIFFERENTIAL AUTO Routine 01/11/2025 9:02 PM CDT COMPREHENSIVE METABOLIC PANEL Routine 01/11/2025 9:02 PM CDT CBC WITH AUTO DIFFERENTIAL Routine 01/11/2025 9:02 PM CDT BLOOD CULTURE Routine 01/11/2025 6:58 PM CDT BLOOD CULTURE Routine 01/11/2025 6:58 PM CDT EEG Routine 01/11/2025 6:41 PM CDT URINALYSIS AND REFLEX TO MICROSCOPIC AND CULTURE Routine 01/11/2025 6:13 PM CDT T4, FREE Timed 01/11/2025 5:04 PM CDT THYROID FUNCTION CASCADE Timed 025 5:04 PM CDT PHOSPHORUS Timed 01/11/2025 5:04 PM CDT MAGNESIUM Timed 01/11/2025 5:04 PM CDT AMMONIA Timed 01/11/2025 5:04 PM CDT BLOOD GAS, VENOUS STAT 01/11/2025 5:04 PM CDT CTA/CTP RAPID STROKE Critical/Life -Threatening 01/11/2025 4:[address] CERVICAL SPINE WO CONTRAST Critical/Life -Threatening 01/11/2025 4:33 PM CDT EGFR STAT 01/11/2025 3:52 PM CDT DIFFERENTIAL AUTO STAT 01/11/2025 3:52 PM CDT LACTATE STAT 01/11/2025 3:52 PM CDT CBC WITH AUTO DIFFERENTIAL STAT 01/11/2025 3:52 PM CDT BASIC METABOLIC PANEL STAT 01/11/2025 3:52 PM CDT POCT GLUCOSE DEVICE Routine 01/11/2025 3:30 PM CDT EGFR Routine 01/10/2025 8:35 PM CDT DIFFERENTIAL AUTO Routine 01/10/2025 8:35 PM CDT MAGNESIUM Routine 01/10/2025 8:35 PM CDT PHOSPHORUS Routine 01/10/2025 8:35 PM CDT COMPREHENSIVE METABOLIC PANEL Routine 01/10/2025 8:35 PM CDT CBC WITH AUTO DIFFERENTIAL Routine 01/10/2025 8:35 PM CDT XR ORTHOPANTOGRAM/PANOREX IP Routine 2024 1:36 PM CDT SENIOR QUALITY TECHNICIAN EVALUATE AND TREAT CLINICAL SWALLOW Routine 01/10/2025 11:17 AM CDT MAGNESIUM Timed 01/10/2025 5:28 AM CDT PHOSPHORUS Timed 01/10/2025 5:28 AM CDT EGFR Timed 01/10/2025 5:28 AM CDT BASIC METABOLIC PANEL Timed 01/10/2025 5:28 AM CDT EGFR Routine 01/09/2025 10:04 PM CDT DIFFERENTIAL AUTO Routine 01/09/2025 10:04 PM CDT COMPREHENSIVE METABOLIC PANEL Routine 01/09/2025 10:04 PM CDT CBC WITH AUTO DIFFERENTIAL Routine 01/09/2025 10:04 PM CDT MISCELLANEOUS MICROBIOLOGY TEST Routine 01/09/2025 9:18 AM CDT VANCOMYCIN LEVEL RANDOM Timed 01/10/20 8:28 AM CDT POTASSIUM, WHOLE BLOOD STAT 6:41 AM CDT EGFR Timed 01/09/2025 5:26 AM CDT BASIC METABOLIC PANEL Timed 01/09/2025 5:26 AM CDT MRI BRAIN W WO CONTRAST IP Routine 01/09/20 11:38 PM CDT EGFR Routine 01/08/2025 9:00 PM CDT DIFFERENTIAL AUTO Routine 01/08/2025 9:00 PM CDT COMPREHENSIVE METABOLIC PANEL Routine 01/08/2025 9:00 PM CDT CBC WITH AUTO DIFFERENTIAL Routine 01/08/2025 9:00 PM CDT EGFR Timed 01/08/2025 5:53 AM CDT BASIC METABOLIC PANEL Timed 01/08/2025 5:53 AM CDT HISTOPLASMA ANTIGEN Routine 01/08/2025 5:53 AM CDT EGFR Routine 01/07/2025 6:21 PM CDT DIFFERENTIAL AUTO Routine 01/07/2025 6:21 PM CDT APTT Routine 01/07/2025 6:21 PM CDT PROTIME-INR Routine 01/07/2025 6:21 PM CDT TYPE AND SCREEN Timed 01/07/2025 6:21 PM CDT COMPREHENSIVE METABOLIC PANEL Routine 01/07/2025 6:21 PM CDT CBC WITH AUTO DIFFERENTIAL Routine 01/07/2025 6:21 PM CDT CRYPTOCOCCAL ANTIGEN, SERUM Routine 01/07/2025 6:21 PM CDT BLASTOMYCES ANTIBODY, EIA, S Routine 01/07/2025 6:21 PM CDT HISTOPLASMA ANTIBODY Routine 01/07/2025 6:21 PM CDT Q FEVER AB W REFLEX TO IMMUNOFLUORESCENCE Routine 01/07/2025 6:21 PM CDT BARTONELLA ANTIBODY PANEL Routine 2024 6:21 PM CDT TRANSESOPHAGEAL ECHO (JANELLE) W DOPPLER/CF WO CONTRAST Routine 01/07/2025 3:14 PM CDT XR CHEST 1 VIEW ED Urgent/IP Urgent 01/07/2025 11:33 AM CDT EGFR Timed 01/07/2025 10:06 AM CDT BASIC METABOLIC PANEL Timed 01/07/2025 10:06 AM CDT VANCOMYCIN LEVEL RANDOM Timed 01/08/20 10:06 AM CDT EGFR Routine 01/06/2025 9:10 PM CDT DIFFERENTIAL AUTO Routine 01/06/2025 9:10 PM CDT COMPREHENSIVE METABOLIC PANEL Routine 01/06/2025 9:10 PM CDT CBC WITH AUTO DIFFERENTIAL Routine 01/06/2025 9:10 PM CDT T4, FREE STAT 01/06/2025 4:34 PM CDT URIC ACID STAT 01/06/2025 4:34 PM CDT THYROID FUNCTION CASCADE STAT 025 4:34 PM CDT CYSTATIN C STAT 01/06/2025 4:34 PM CDT PROTEIN / CREATININE RATIO, URINE, RANDOM Routine 01/06/2025 4:34 PM CDT CSF PROTEIN STAT 01/06/2025 3:48 PM CDT GLUCOSE, CSF STAT 01/06/2025 3:48 PM CDT CELL COUNT W REFLEX DIFFERENTIAL, CSF STAT 01/06/2025 3:48 PM CDT MICROORGANISM DETECTION BY PCR/SEQUENCING Routine 01/06/2025 2:31 PM CDT BACTERIAL CULTURE AND GRAM STAIN, CSF STAT 01/06/2025 2:31 PM CDT US KIDNEY COMPLETE IP Routine 01/06/2025 11:12 AM CDT URINALYSIS, MICROSCOPIC ONLY Routine 01/06/2025 9:38 AM CDT CREATININE, URINE, RANDOM Routine 2024 9:38 AM CDT OSMOLALITY, URINE Routine 01/06/2025 9:38 AM CDT UREA NITROGEN, URINE, RANDOM Routine 01/06/2025 9:38 AM CDT SODIUM, URINE, RANDOM Routine 01/06/2025 9:38 AM CDT URINALYSIS AND REFLEX TO MICROSCOPIC AND CULTURE Routine 01/06/2025 9:38 AM CDT CRITICAL RESULT CALLBACK CHEMISTRY Timed 01/06/2025 6:47 AM CDT VANCOMYCIN LEVEL TROUGH Timed 01/07/20 6:47 AM CDT OSMOLALITY, BLOOD Routine 01/05/2025 10:20 PM CDT EGFR Routine 01/05/2025 10:20 PM CDT DIFFERENTIAL AUTO Routine 01/05/2025 10:20 PM CDT COMPREHENSIVE METABOLIC PANEL Routine 01/05/2025 10:20 PM CDT CBC WITH AUTO DIFFERENTIAL Routine 01/05/2025 10:20 PM CDT EGFR Routine 01/05/2025 12:40 AM CDT DIFFERENTIAL AUTO Routine 01/05/2025 12:40 AM CDT COMPREHENSIVE METABOLIC PANEL Routine 01/05/2025 12:40 AM CDT CBC WITH AUTO DIFFERENTIAL Routine 01/05/2025 12:40 AM CDT BIOPSY DEEP BONE IP Routine 01/04/2025 5:01 PM CDT TISSUE AEROBIC AND ANAEROBIC CULTURE AND GRAM STAIN Routine 01/04/2025 5:00 PM CDT MYCOLOGY (FUNGAL) CULTURE AND STAIN Routine 01/04/2025 5:00 PM CDT MYCOBACTERIOLOGY AFB CULTURE Routine 01/04/2025 5:00 PM CDT AEROBIC AND ANAEROBIC CULTURE AND GRAM STAIN Routine 01/04/2025 5:00 PM CDT MYCOLOGY (FUNGAL) CULTURE AND STAIN Routine 01/04/2025 5:00 PM CDT MYCOBACTERIOLOGY AFB CULTURE Routine 01/04/2025 5:00 PM CDT SURGICAL PATHOLOGY Routine 01/04/2025 4:58 PM CDT 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 VANCOMYCIN LEVEL TROUGH Timed 01/05/20 1:00 PM CDT EGFR Routine 01/03/2025 10:39 PM CDT DIFFERENTIAL AUTO Routine 01/03/2025 10:39 PM CDT COMPREHENSIVE METABOLIC PANEL Routine 01/03/2025 10:39 PM CDT CBC WITH AUTO DIFFERENTIAL Routine 01/03/2025 10:39 PM CDT PROTIME-INR Timed 01/03/2025 1:25 PM CDT APTT Timed 01/03/2025 1:25 PM CDT BLOOD CULTURE Routine 01/03/2025 1:25 PM CDT BLOOD CULTURE STAT 01/03/2025 1:25 PM CDT US VEIN DUPLEX UPPER EXTREMITY LEFT LIMITED ED Urgent/IP Urgent 01/03/2025 8:57 AM CDT EGFR Routine 01/02/2025 11:01 PM CDT DIFFERENTIAL AUTO Routine 01/02/2025 11:01 PM CDT LIPID PANEL Routine 01/02/2025 11:01 PM CDT HEMOGLOBIN A1C Routine 01/02/2025 11:01 PM CDT COMPREHENSIVE METABOLIC PANEL Routine 01/02/2025 11:01 PM CDT CBC WITH AUTO DIFFERENTIAL Routine 01/02/2025 11:01 PM CDT MRI SPINE THORACIC LUMBAR W WO CONTRAST ED Urgent/IP Urgent 01/02/2025 10:02 PM CDT CTA HEAD NECK W WO CONTRAST ED Urgent/IP Urgent 01/02/2025 12:40 PM CDT SODIUM, URINE, RANDOM Routine 01/02/2025 9:17 AM CDT OSMOLALITY, URINE Routine 01/02/2025 9:17 AM CDT EGFR Routine 01/01/2025 10:32 PM CDT DIFFERENTIAL AUTO Routine 01/01/2025 10:32 PM CDT ERYTHROCYTE SEDIMENTATION RATE Timed 01/01/2025 10:32 PM CDT CRP (ACUTE PHASE) Timed 01/01/2025 10:32 PM CDT COMPREHENSIVE METABOLIC PANEL Routine 01/01/2025 10:32 PM CDT CBC WITH AUTO DIFFERENTIAL Routine 01/01/2025 10:32 PM CDT HIV 1/2 ANTIBODY PLUS P24 ANTIGEN Routine 01/01/2025 10:32 PM CDT MRI CERVICAL SPINE W WO CONTRAST ED Urgent/IP Urgent 01/01/2025 5:18 PM CDT MRI BRAIN W WO CONTRAST ED Urgent/IP Urgent 01/01/2025 5:18 PM CDT CYCLIC CITRUL PEPTIDE ANTIBODY, IGG Timed 01/01/2025 6:55 AM CDT RHEUMATOID FACTOR Timed 01/01/2025 6:52 AM CDT FOLATE Timed 01/01/2025 6:52 AM CDT CORTISOL Timed 01/01/2025 6:52 AM CDT OSMOLALITY, URINE STAT 01/01/2025 2:44 AM CDT SODIUM, URINE, RANDOM STAT 01/01/2025 2:44 AM CDT XR VENTRICULOPERITONEAL SHUNT SERIES (ADULT) ED Urgent/IP Urgent 01/01/2025 2:18 AM CDT INEXSUFFLATOR COUGH MACHINE Routine 01/01/2025 1:23 AM CDT INEXSUFFLATOR COUGH MACHINE Routine 01/01/2025 1:23 AM CDT ALDOLASE Timed 12/31/2024 11:34 PM CDT FOLATE Timed 12/31/2024 11:34 PM CDT RHEUMATOID FACTOR Timed 12/31/2024 11:34 PM CDT CRP (ACUTE PHASE) Timed 12/31/2024 11:34 PM CDT T4, FREE Timed 12/31/2024 11:34 PM CDT THYROID FUNCTION CASCADE Timed 025 11:34 PM CDT CREATINE KINASE (CK), TOTAL Timed 12/31/2024 11:34 PM CDT CRITICAL RESULT CALLBACK CHEMISTRY Timed 12/31/2024 11:34 PM CDT OSMOLALITY, BLOOD Timed 12/31/2024 11:34 PM CDT EGFR Timed 12/31/2024 11:34 PM CDT DIFFERENTIAL AUTO Timed 12/31/2024 11:34 PM CDT PHOSPHORUS Timed 12/31/2024 11:34 PM CDT MAGNESIUM Timed 12/31/2024 11:34 PM CDT COMPREHENSIVE METABOLIC PANEL Timed 12/31/2024 11:34 PM CDT CBC WITH AUTO DIFFERENTIAL Timed 12/31/2024 11:34 PM CDT CALCIUM, IONIZED Timed 12/31/2024 11:34 PM CDT SODIUM LEVEL Timed 12/31/2024 8:22 PM CDT EGFR Routine 12/31/2024 3:04 AM CDT RENAL FUNCTION PANEL Routine 12/31/2024 3:04 AM CDT XR HAND LEFT 3 OR MORE VIEWS IP Routine 12/30/2024 6:09 PM CDT CRP (ACUTE PHASE) Routine 12/30/2024 4:55 PM CDT ERYTHROCYTE SEDIMENTATION RATE Routine 12/30/2024 4:[address] HEAD WO CONTRAST IP Routine 12/30/2024 3:01 PM CDT BLOOD CULTURE Routine 12/30/2024 1:45 PM CDT BLOOD CULTURE Routine 12/30/2024 12:49 PM CDT EMG/NCV Routine 12/30/2024 12:00 PM CDT OSMOLALITY, URINE Routine 12/30/2024 5:07 AM CDT EGFR Routine 12/30/2024 3:00 AM CDT PHOSPHORUS Routine 12/30/2024 3:00 AM CDT DIFFERENTIAL AUTO Routine 12/30/2024 3:00 AM CDT COMPREHENSIVE METABOLIC PANEL Routine 12/30/2024 3:00 AM CDT CBC WITH AUTO DIFFERENTIAL Routine 12/30/2024 3:00 AM CDT OSMOLALITY, URINE Routine 12/29/2024 5:51 PM CDT LEGIONELLA ANTIGEN, URINE Routine 2024 5:51 PM CDT FL FLUORO GUIDED LUMBAR PUNCTURE IP Routine 12/29/2024 3:44 PM CDT CELL DIFFERENTIAL, CSF Routine 3:30 PM CDT US VEIN DUPLEX LOWER EXTREMITY BILATERAL COMPLETE IP Routine 12/29/2024 2:30 PM CDT PROTIME-INR STAT 12/29/2024 11:54 AM CDT CLINICAL PATHOLOGY REPORT Routine 2024 11:23 AM CDT PROCALCITONIN Routine 12/29/2024 9:38 AM CDT HIT ANTIBODIES W/REFLEX TO SEROTONIN RELEASE ASSAY (SALTY) Routine 12/29/2024 9:38 AM CDT FERRITIN Routine 12/29/2024 9:38 AM CDT HAPTOGLOBIN Routine 12/29/2024 9:38 AM CDT LACTATE DEHYDROGENASE Routine 12/29/2024 9:38 AM CDT BORRELIA BURGDORFERI ANTIBODY SCREEN Routine 12/29/2024 9:38 AM CDT EHRLICHIA AND ANAPLASMA PCR Routine 12/29/2024 9:38 AM CDT EGFR Routine 12/29/2024 5:32 AM CDT PHOSPHORUS Routine 12/29/2024 5:32 AM CDT COMPREHENSIVE METABOLIC PANEL Routine 12/29/2024 5:32 AM CDT SLIDE REVIEW - PATHOLOGIST Routine 12/28/2024 11:56 PM CDT DIFFERENTIAL AUTO Routine 12/28/2024 11:56 PM CDT CBC WITH AUTO DIFFERENTIAL Routine 12/28/2024 11:56 PM CDT SODIUM LEVEL Timed 12/28/2024 11:[address] HEAD WO CONTRAST IP Routine 12/28/2024 8:52 PM CDT BLOOD CULTURE Routine 12/28/2024 8:22 PM CDT BLOOD CULTURE Routine 12/28/2024 8:22 PM CDT TROPONIN T HIGH-SENSITIVITY 4-HR Timed 12/28/2024 6:02 PM CDT C4 COMPLEMENT Timed 12/28/2024 6:02 PM CDT C3 COMPLEMENT Timed 12/28/2024 6:02 PM CDT SODIUM LEVEL Timed 12/28/2024 6:02 PM CDT TROPONIN T HIGH-SENSITIVITY 2-HOUR Timed 12/28/2024 4:31 PM CDT TRANSTHORACIC ECHO (TTE) COMPLETE W DOPPLER/CF WO CONTRAST Routine 12/28/2024 2:54 PM CDT TROPONIN T HIGH-SENSITIVITY SERIES (BASELINE, 2HR, 4HR, 6HR) Routine 12/28/2024 2:23 PM CDT BLOOD GAS, VENOUS Routine 12/28/2024 2:23 PM CDT SODIUM LEVEL Timed 12/28/2024 1:31 PM CDT ECG 12-LEAD Routine 12/28/2024 1:06 PM CDT RESPIRATORY PATHOGEN PANEL Routine 12/28/2024 1:03 PM CDT OSMOLALITY, URINE Routine 12/28/2024 10:45 AM CDT SODIUM, URINE, RANDOM Routine 12/28/2024 10:45 AM CDT CRP (ACUTE PHASE) Routine 12/28/2024 5:27 AM CDT ERYTHROCYTE SEDIMENTATION RATE Routine 12/28/2024 5:27 AM CDT CREATINE KINASE (CK), TOTAL Routine 12/28/2024 5:27 AM CDT OSMOLALITY, BLOOD Routine 12/28/2024 5:27 AM CDT PRO B-TYPE NATRIURETIC PEPTIDE Routine 12/28/2024 5:27 AM CDT MANUAL DIFFERENTIAL Routine 12/28/2024 5:27 AM CDT EGFR Routine 12/28/2024 5:27 AM CDT COMPREHENSIVE METABOLIC PANEL Routine 12/28/2024 5:27 AM CDT CBC WITH AUTO DIFFERENTIAL Routine 12/28/2024 5:27 AM CDT SODIUM LEVEL Timed 12/28/2024 12:03 AM CDT D-DIMER, QUANTITATIVE Timed 12/27/2024 8:25 PM CDT SODIUM LEVEL Timed 12/27/2024 8:[address] CHEST PE ABDOMEN PELVIS W CONTRAST IP Routine 12/27/2024 8:01 PM CDT POCT GLUCOSE DEVICE Routine 12/27/2024 4:31 PM CDT SODIUM, URINE, RANDOM Routine 12/27/2024 4:07 PM CDT OSMOLALITY, URINE Routine 12/27/2024 4:07 PM CDT BLOOD GAS, VENOUS Routine 12/27/2024 11:58 AM CDT SODIUM LEVEL Timed 12/27/2024 11:58 AM CDT XR CHEST 1 VIEW IP Routine 12/27/2024 11:36 AM CDT OSMOLALITY, BLOOD Add-On 12/27/2024 8:[address] THORACIC SPINE WO CONTRAST ED Urgent/IP Urgent 12/27/2024 4:[address] CERVICAL SPINE WO CONTRAST ED Urgent/IP Urgent 12/27/2024 4:46 AM CDT PRO B-TYPE NATRIURETIC PEPTIDE Add-On 12/27/2024 3:39 AM CDT EGFR Routine 12/27/2024 3:39 AM CDT MANUAL DIFFERENTIAL Routine 12/27/2024 3:39 AM CDT COMPREHENSIVE METABOLIC PANEL Routine 12/27/2024 3:39 AM CDT CBC WITH AUTO DIFFERENTIAL Routine 12/27/2024 3:39 AM CDT POCT GLUCOSE DEVICE Routine 12/26/2024 10:04 AM CDT EGFR Routine 12/26/2024 3:59 AM CDT DIFFERENTIAL AUTO Routine 12/26/2024 3:59 AM CDT MAGNESIUM Routine 12/26/2024 3:59 AM CDT COMPREHENSIVE METABOLIC PANEL Routine 12/26/2024 3:59 AM CDT CBC WITH AUTO DIFFERENTIAL Routine 12/26/2024 3:59 AM CDT URINALYSIS AND REFLEX TO MICROSCOPIC AND CULTURE STAT 12/25/2024 3:03 PM CDT PROTIME-INR STAT 12/25/2024 12:[address] LUMBAR SPINE WO CONTRAST ED 12/25/2024 6:43 AM CDT EGFR STAT 12/25/2024 6:13 AM CDT DIFFERENTIAL AUTO STAT 12/25/2024 6:13 AM CDT COMPREHENSIVE METABOLIC PANEL STAT 12/25/2024 6:13 AM CDT CBC WITH AUTO DIFFERENTIAL STAT 12/25/2024 6:13 AM CDT ACTH Routine 12/23/2024 10:33 AM CDT Chronic hyponatremia SODIUM, URINE, RANDOM Routine 12/23/2024 10:33 AM CDT Chronic hyponatremia EGFR Routine 12/23/2024 10:31 AM CDT Chronic hyponatremia OSMOLALITY, BLOOD Routine 12/23/2024 10:31 AM CDT Chronic hyponatremia OSMOLALITY, URINE Routine 12/23/2024 10:31 AM CDT Chronic hyponatremia CORTISOL Routine 12/23/2024 10:31 AM CDT Chronic hyponatremia TSH Routine 12/23/2024 10:31 AM CDT Chronic hyponatremia T4, FREE Routine 12/23/2024 10:31 AM CDT Chronic hyponatremia COMPREHENSIVE METABOLIC PANEL Routine 12/23/2024 10:31 AM CDT Chronic hyponatremia EGFR Routine 12/21/2024 8:35 AM CDT Chronic hyponatremia LIPID PANEL Routine 12/21/2024 8:35 AM CDT Mixed hyperlipidemia COMPREHENSIVE METABOLIC PANEL Routine 12/21/2024 8:35 AM CDT Chronic hyponatremia VITAMIN D 25 HYDROXY Routine 12/21/2024 8:35 AM CDT Fatigue, unspecified type Vitamin D deficiency XR SPINE LUMBAR ROUTINE Schedule Routine, Read Routine (OP Routine) 12/16/2024 3:19 PM CDT Lumbar radiculopathy Lumbar spondylosis Degeneration of intervertebral disc of lumbar region with discogenic back pain and lower extremity pain DEXA TBS AXIAL SKELETON BONE DENSITY 1 OR MORE SITES Schedule Routine, Read Routine (OP Routine) 11/04/2024 1:21 PM CDT Age-related osteoporosis without current pathological fracture SCREENING MAMMOGRAM BILATERAL W HANK Schedule Routine, Read Routine (OP Routine) 09/25/2024 10:13 AM CDT Screening mammogram, encounter for COLONOSCOPY 08/26/2022 7:06 AM CDT HEPATITIS C ANTIBODY Routine 03/21/2017 11:10 AM [facility] Need for hepatitis C screening test BMI 26.0-26.9,adult from Last 3 Months or Most Recently Relevant to Health Maintenance Results * (ABNORMAL) eGFR (03/02/2025 8:12 PM [facility]) eGFR 51(L) >=60 mL/min/1. 73 m2 Comment: Interpretive Data Reference Interval Normal >/= 90 mL/min/1.73m2 Mildly decreased* 60 - 89 mL/min/1.73m2 Mildly to moderately decreased 45 - 59 mL/min/1.73m2 Moderately to severely decreased 30 - 44 mL/min/1.73m2 Severely decreased 15 - 29 mL/min/1.73m2 Kidney Failure < 15 mL/min/1.73m2 *Relative to young adult level Estimated glomerular filtration rate is determined by the 2020 CKD-EPI equation recommended by the [employer] (A Unifying Approach to GFR Estimation: Recommendations of the NKF-ASK Task Force on Reassessing the Inclusion of Race in Diagnosing Kidney Disease, JASN 2020). The CKD-EPI equation should not be used for patients with unstable renal function and has not been validated in children and those over 70. Current interpretive data was last reviewed 2021. Blood 03/02/2025 8:12 PM [facility] 03/02/2025 10:26 PM [facility] us Andrey Donato Pickard MD LAB BLOOD ORDERABLES Final R esult [facility] [id number] Department [place] [address] * (ABNORMAL) Differential, auto (03/02/2025 8:12 PM [facility]) Neutrophil abs 7.62(H) 1.50 - 6.50 K/cumm Imm gran abs 0.03 0.00 - 0.10 K/cumm [facility] Lymphocyte abs 1.58 0.80 - 3.30 K/cumm [facility] Monocyte abs 0.96(H) 0.20 - 0.80 K/cumm [facility] Eosinophil abs 0.43 0.00 - 0.50 K/cumm [facility] Basophil abs 0.03 0.00 - 0.10 K/cumm [facility] Neutrophil pct 71.6 % [facility] Comment: Interpretive Data Percent cell count reference ranges are not reported, since discordance with absolute values may lead to misinterpretation of CBC data. Current Interpretive Data was last revised on 2017. Imm gran pct 0.3 % [facility] Comment: Interpretive Data Percent cell count reference ranges are not reported, since discordance with absolute values may lead to misinterpretation of CBC data. Current Interpretive Data was last revised on 2017. Lymphocyte pct 14.8 % [facility] Comment: Interpretive Data Percent cell count reference ranges are not reported, since discordance with absolute values may lead to misinterpretation of CBC data. Current Interpretive Data was last revised on 2017. Monocyte pct 9.0 % [facility] Comment: Interpretive Data Percent cell count reference ranges are not reported, since discordance with absolute values may lead to misinterpretation of CBC data. Current Interpretive Data was last revised on 2017. Eosinophil pct 4.0 % [facility] Comment: Interpretive Data Percent cell count reference ranges are not reported, since discordance with absolute values may lead to misinterpretation of CBC data. Current Interpretive Data was last revised on 2017. Basophil pct 0.3 % [facility] Comment: Interpretive Data Percent cell count reference ranges are not reported, since discordance with absolute values may lead to misinterpretation of CBC data. Current Interpretive Data was last revised on 2017. Blood 03/02/2025 8:12 PM [facility] 03/02/2025 8:48 PM [facility] us Andrey Donato Pickard MD LAB BLOOD ORDERABLES Final R esult [facility] [id number] Department [place] [address] * (ABNORMAL) Comprehensive metabolic panel, serum (03/02/2025 8:12 PM [facility]) Sodium 137 135 - 145 mmol/L Potassium, sr 3.4(L) 3.6 - 5.2 mmol/L [facility] Chloride 94(L) 97 - 110 mmol/L [facility] CO2 23 22 - 32 mmol/L [facility] Anion gap 20(H) 2 - 15 mmol/L [facility] BUN 13 6 - 25 mg/dL [facility] Creatinine 1.10 0.60 - 1.10 mg/dL [facility] Glucose 74 70 - 199 mg/dL [facility] Comment: Interpretive Data Fasting glucose >/= 126 mg/dl is diagnostic for diabetes. Fasting is defined as no caloric intake for at least 8 hours. Fasting glucose between 100 mg/dl to 125 mg/dl is diagnostic of prediabetes. In a patient with classic symptoms of hyperglycemia or hyperglycemic crisis, a random glucose >/= 200 mg/dl is diagnostic for diabetes. In the absence of unequivocal hyperglycemia, results should be confirmed by repeat testing. The classification and Diagnosis of Diabetes Diabetes Care 202; 46: S19-S40. Current interpretive data was last revised 2022. Calcium 8.7 8.5 - 10.3 mg/dL [facility] Bilirubin, total 0.3 0.1 - 1.2 mg/dL [facility] Protein, sr 6.2 6.2 - 8.2 g/dL [facility] Albumin 3.9 3.5 - 5.0 g/dL [facility] Alk phos 117 40 - 130 Units/L [facility] ALT 46(H) 7 - 45 Units/L [facility] AST 71(H) 10 - 45 Units/L [facility] Blood 03/02/2025 8:12 PM [facility] 03/02/2025 8:47 PM [facility] us Andreyjohana Pickard MD LAB BLOOD ORDERABLES Final R esult [facility] [id number] Department [place] [address] * (ABNORMAL) CBC with auto differential (03/02/2025 8:12 PM [facility]) WBC 10.65(H) 3.80 - 9.90 K/cumm Hgb 8.3(L) 11.9 - 15.5 g/dL [facility] Hct 25.7(L) 35.6 - 45.5 % [facility] Plt 319 150 - 400 K/cumm [facility] MPV 8.7(L) 9.1 - 12.3 fL [facility] RBC 2.70(L) 3.90 - 5.20 M/cumm [facility] MCV 95.2 81.3 - 96.4 fL [facility] MCH 30.7 27.1 - 33.3 pg [facility] MCHC 32.3 32.3 - 35.7 g/dL [facility] RDW CV 17.3(H) 11.1 - 14.9 % [facility] RDW SD 60.0(H) 35.7 - 48.1 fL [facility] NRBC abs 0.00 0.00 - 0.01 K/cumm [facility] Blood 03/02/2025 8:12 PM [facility] 03/02/2025 8:48 PM [facility] us Andreyjohana Pickard MD LAB BLOOD ORDERABLES Final R esult [facility] [id number] [place] [address] * (ABNORMAL) Creatine kinase (CK), total (03/02/2025 8:12 PM [facility]) CK 2,785(H) 30 - 200 Units/L Blood 03/02/2025 8:12 PM [facility] 03/02/2025 8:48 PM [facility] us Andrey Pickard MD LAB BLOOD ORDERABLES Final R esult Performing Organization Address [facility] [place] [address] [address] Department [employer] [place] [address] * (ABNORMAL) eGFR (03/02/2025 3:15 PM [facility]) Pathologist [facility] [place] eGFR 55(L) >=60 mL/min/1. 73 m2 Comment: Interpretive Data Reference Interval Normal >/= 90 mL/min/1.73m2 Mildly decreased* 60 - 89 mL/min/1.73m2 Mildly to moderately decreased 45 - 59 mL/min/1.73m2 Moderately to severely decreased 30 - 44 mL/min/1.73m2 Severely decreased 15 - 29 mL/min/1.73m2 Kidney Failure < 15 mL/min/1.73m2 *Relative to young adult level Estimated glomerular filtration rate is determined by the 2020 CKD-EPI equation recommended by the [employer] (A Unifying Approach to GFR Estimation: Recommendations of the NKF-ASK Task Force on Reassessing the Inclusion of Race in Diagnosing Kidney Disease, JASN 2020). The CKD-EPI equation should not be used for patients with unstable renal function and has not been validated in children and those over 70. Current interpretive data was last reviewed 2021. Blood 03/02/2025 3:15 PM TREE THINNER 03/02/2025 6:06 PM TREE THINNER us Pascual Connor MD LAB BLOOD ORDERABLES Sheila l Result Performing Organization Address City/[facility]/ZIP Co de Phone Number [facility] Department [place] [address] * (ABNORMAL) Differential, auto (03/02/2025 3:15 PM TREE THINNER) Neutrophil abs 7.50(H) 1.50 - 6.50 K/cumm Imm gran abs 0.04 0.00 - 0.10 K/cumm [facility] Lymphocyte abs 2.33 0.80 - 3.30 K/cumm [facility] Monocyte abs 1.00(H) 0.20 - 0.80 K/cumm [facility] Eosinophil abs 0.44 0.00 - 0.50 K/cumm [facility] Basophil abs 0.03 0.00 - 0.10 K/cumm [facility] Neutrophil pct 66.1 % [facility] Comment: Interpretive Data Percent cell count reference ranges are not reported, since discordance with absolute values may lead to misinterpretation of CBC data. Current Interpretive Data was last revised on 2017. Imm gran pct 0.4 % [facility] Comment: Interpretive Data Percent cell count reference ranges are not reported, since discordance with absolute values may lead to misinterpretation of CBC data. Current Interpretive Data was last revised on 2017. Lymphocyte pct 20.5 % [facility] Comment: Interpretive Data Percent cell count reference ranges are not reported, since discordance with absolute values may lead to misinterpretation of CBC data. Current Interpretive Data was last revised on 2017. Monocyte pct 8.8 % [facility] Comment: Interpretive Data Percent cell count reference ranges are not reported, since discordance with absolute values may lead to misinterpretation of CBC data. Current Interpretive Data was last revised on 2017. Eosinophil pct 3.9 % [facility] Comment: Interpretive Data Percent cell count reference ranges are not reported, since discordance with absolute values may lead to misinterpretation of CBC data. Current Interpretive Data was last revised on 2017. Basophil pct 0.3 % [facility] Comment: Interpretive Data Percent cell count reference ranges are not reported, since discordance with absolute values may lead to misinterpretation of CBC data. Current Interpretive Data was last revised on 2017. Blood 03/02/2025 3:15 PM TREE THINNER 03/02/2025 6:07 PM TREE THINNER Pascual Connor MD LAB BLOOD ORDERABLES Sheila l Result [facility] [address] [place] [address] * (ABNORMAL) CBC with auto differential (03/02/2025 3:15 PM TREE THINNER) [facility] WBC 11.34(H) 3.80 - 9.90 K/cumm Hgb 8.4(L) 11.9 - 15.5 g/dL [facility] Hct 25.8(L) 35.6 - 45.5 % [facility] Plt 344 150 - 400 K/cumm [facility] MPV 9.1 9.1 - 12.3 fL [facility] RBC 2.75(L) 3.90 - 5.20 M/cumm [facility] MCV 93.8 81.3 - 96.4 fL [facility] MCH 30.5 27.1 - 33.3 pg [facility] MCHC 32.6 32.3 - 35.7 g/dL [facility] RDW CV 17.2(H) 11.1 - 14.9 % [facility] RDW SD 59.7(H) 35.7 - 48.1 fL [facility] NRBC abs 0.00 0.00 - 0.01 K/cumm [facility] Blood 03/02/2025 3:15 PM TREE THINNER 03/02/2025 6:07 PM TREE THINNER Pascual Connor MD LAB BLOOD ORDERABLES Sheila l Result Performing Organization Address City/[facility]/ZIP Co de Phone Number [address] [place] [address] * (ABNORMAL) Creatine kinase (CK), total (03/02/2025 3:15 PM TREE THINNER) [facility] CK 2,512(H) 30 - 200 Units/L Blood 03/02/2025 3:15 PM TREE THINNER 03/02/2025 6:06 PM TREE THINNER Pascual Connor MD LAB BLOOD ORDERABLES Sheila hickman Result [facility] [address] [facility] Department [place] [address] * (ABNORMAL) Comprehensive metabolic panel (03/02/2025 3:15 PM TREE THINNER) Sodium 134(L) 135 - 145 mmol/L Potassium, pl 3.6 3.3 - 4.9 mmol/L [facility] Chloride 95(L) 97 - 110 mmol/L [facility] CO2 30 22 - 32 mmol/L [facility] Anion gap 9 2 - 15 mmol/L [facility] BUN 13 6 - 25 mg/dL [facility] Creatinine 1.04 0.60 - 1.10 mg/dL [facility] Glucose 102 70 - 199 mg/dL [facility] Comment: Interpretive Data Fasting glucose >/= 126 mg/dl is diagnostic for diabetes. Fasting is defined as no caloric intake for at least 8 hours. Fasting glucose between 100 mg/dl to 125 mg/dl is diagnostic of prediabetes. In a patient with classic symptoms of hyperglycemia or hyperglycemic crisis, a random glucose >/= 200 mg/dl is diagnostic for diabetes. In the absence of unequivocal hyperglycemia, results should be confirmed by repeat testing. The classification and Diagnosis of Diabetes Diabetes Care 2021; 46: S19-S40. Current interpretive data was last revised 2022. Calcium 9.3 8.5 - 10.3 mg/dL [facility] Bilirubin, total 0.4 0.1 - 1.2 mg/dL [facility] Protein, pl 6.8 6.5 - 8.5 g/dL [facility] Albumin 4.1 3.5 - 5.0 g/dL [facility] Alk phos 108 40 - 130 Units/L [facility] ALT 42 7 - 45 Units/L [facility] AST 68(H) 10 - 45 Units/L [facility] Blood 03/02/2025 3:15 PM TREE THINNER 03/02/2025 6:06 PM TREE THINNER Pascual Connor MD LAB BLOOD ORDERABLES Sheila hickman Result [facility] [address] [facility] Department [place] [address] * MRI Spine Total Complete W WO Contrast (03/01/2025 11:49 AM TREE THINNER) Anatomical Region Laterality Modality Spine N/A Magnetic Resonan ce 03/01/2025 2:22 PM TREE THINNER Impressions 03/01/2025 4:50 PM TREE THINNER 1. Overall, there is interval decrease in multifocal discitis/osteomyelitis involving C2/dens, T1-T2 with posterior element involvement, and T12-L1. There are associated regions of epidural thickening and/or phlegmon at these levels with trace epidural abscesses involving the dorsal C2-C3 level and T1-T2 levels which are stable to mildly decreased compared to prior examination. Of note, there is unchanged extension of the C2-C3 epidural thickening/phlegmon to the skull base along the tectorial membrane and foramen magnum. 2. Additional interval decrease in enhancement and edema representing improving septic arthritis involving the right C7-T1 and left L4-L5 facets. Dictated by: Adiel Hackett MD The radiology attending physician has personally reviewed this study, and had reviewed and/or edited this written report and agrees with it. Electronically signed by: Agata Villasenor MD Narrative 03/01/2025 4:50 PM TREE THINNER EXAMINATION: 1. Magnetic resonance imaging (MRI) of the cervical spine without and with contrast 2. Magnetic resonance imaging (MRI) of the thoracic spine without and with contrast 3. Magnetic resonance imaging (MRI) of the lumbar spine without and with contrast HISTORY: Discitis/osteomyelitis, concern for epidural abscess TECHNIQUE: Multiplanar multi-weighted MRI of the cervical spine was performed without and with intravenous contrast using the standard protocol. Multiplanar multi-weighted MRI of the thoracic was performed without and with intravenous contrast using the standard protocol. Multiplanar multi-weighted MRI of the lumbar spine was performed without and with intravenous contrast using the standard protocol. Contrast information: 12 mL Gadoterate Meglumine IV COMPARISON: 02/03/2025, 01/02/2025 FINDINGS: There is unchanged edema and enhancement involving C2/dens osteomyelitis. There is unchanged ventral and dorsal epidural thickening and enhancement at C2-C3 (series 39 image 9) with a tiny rim-enhancing collection along the dorsal compartment (series 40 image 13) representing unchanged dorsal epidural abscess. The phlegmon/epidural thickening extends to involve the tectorial membrane and foramen magnum. There is mild interval decrease in edema and enhancement involving the right C7-T1 facet representing improving septic arthritis. There is interval decrease in edema and enhancement involving the T1 and T2 disc space and vertebral bodies extending into the posterior elements (series 16 image 8, series 39 image 6) representing discitis/osteomyelitis. There is unchanged dorsal epidural thickening along this region with trace dorsal rim-enhancing collection (series 40 image 55) representing trace epidural abscess. There is also interval decrease in edema and enhancement involving the T12 and L1 disc space and vertebral bodies. No evidence of posterior element involvement or epidural abscess. There is unchanged dorsal and ventral epidural thickening. There is persistent edema and enhancement involving the left L4-L5 facet with overall decrease in surrounding enhancing collections within this region dating back to 01/02/2025. No residual paraspinal collection is noted. This likely represents a region of septic arthritis. Additional minimal enhancement within the remaining lumbar facets bilaterally is not significantly changed and may be related to degenerative synovitis. Postoperative changes of anterior cervical fusion from C4 to C7. Multilevel cervical spondylosis with disc osteophyte complex and ligamentum flavum infolding resulting resulting in severe bilateral foraminal stenosis and canal stenosis at C3-C4. There are multilevel thoracic disc protrusions with facet arthropathy and ligamentum flavum infolding most prominent within the lower thoracic spine from T8 to T12 resulting in moderate multilevel foraminal and canal stenosis. There is also severe multilevel lumbar spondylosis with disc bulges, facet arthropathy, and epidural lipomatosis resulting in severe multilevel foraminal and canal stenosis. No acute abnormality is noted within the neck soft tissues. No significant cervical lymphadenopathy. There are trace bilateral pleural effusions with minimal bibasilar atelectasis, improved compared to prior exam. No organized intra-abdominal collection or acute soft tissue abnormality is noted within the visualized portions of the abdomen and pelvis. Procedure Note Agata Villasenor MD PhD - 03/01/2025 EXAMINATION: 1. Magnetic resonance imaging (MRI) of the cervical spine without and with contrast 2. Magnetic resonance imaging (MRI) of the thoracic spine without and with contrast 3. Magnetic resonance imaging (MRI) of the lumbar spine without and with contrast HISTORY: Discitis/osteomyelitis, concern for epidural abscess TECHNIQUE: Multiplanar multi-weighted MRI of the cervical spine was performed without and with intravenous contrast using the standard protocol. Multiplanar multi-weighted MRI of the thoracic was performed without and with intravenous contrast using the standard protocol. Multiplanar multi-weighted MRI of the lumbar spine was performed without and with intravenous contrast using the standard protocol. Contrast information: 12 mL Gadoterate Meglumine IV COMPARISON: 02/03/2025, 01/02/2025 FINDINGS: There is unchanged edema and enhancement involving C2/dens osteomyelitis. There is unchanged ventral and dorsal epidural thickening and enhancement at C2-C3 (series 39 image 9) with a tiny rim-enhancing collection along the dorsal compartment (series 40 image 13) representing unchanged dorsal epidural abscess. The phlegmon/epidural thickening extends to involve the tectorial membrane and foramen magnum. There is mild interval decrease in edema and enhancement involving the right C7-T1 facet representing improving septic arthritis. There is interval decrease in edema and enhancement involving the T1 and T2 disc space and vertebral bodies extending into the posterior elements (series 16 image 8, series 39 image 6) representing discitis/osteomyelitis. There is unchanged dorsal epidural thickening along this region with trace dorsal rim-enhancing collection (series 40 image 55) representing trace epidural abscess. There is also interval decrease in edema and enhancement involving the T12 and L1 disc space and vertebral bodies. No evidence of posterior element involvement or epidural abscess. There is unchanged dorsal and ventral epidural thickening. There is persistent edema and enhancement involving the left L4-L5 facet with overall decrease in surrounding enhancing collections within this region dating back to 01/02/2025. No residual paraspinal collection is noted. This likely represents a region of septic arthritis. Additional minimal enhancement within the remaining lumbar facets bilaterally is not significantly changed and may be related to degenerative synovitis. Postoperative changes of anterior cervical fusion from C4 to C7. Multilevel cervical spondylosis with disc osteophyte complex and ligamentum flavum infolding resulting resulting in severe bilateral foraminal stenosis and canal stenosis at C3-C4. There are multilevel thoracic disc protrusions with facet arthropathy and ligamentum flavum infolding most prominent within the lower thoracic spine from T8 to T12 resulting in moderate multilevel foraminal and canal stenosis. There is also severe multilevel lumbar spondylosis with disc bulges, facet arthropathy, and epidural lipomatosis resulting in severe multilevel foraminal and canal stenosis. No acute abnormality is noted within the neck soft tissues. No significant cervical lymphadenopathy. There are trace bilateral pleural effusions with minimal bibasilar atelectasis, improved compared to prior exam. No organized intra-abdominal collection or acute soft tissue abnormality is noted within the visualized portions of the abdomen and pelvis. IMPRESSION: 1. Overall, there is interval decrease in multifocal discitis/osteomyelitis involving C2/dens, T1-T2 with posterior element involvement, and T12-L1. There are associated regions of epidural thickening and/or phlegmon at these levels with trace epidural abscesses involving the dorsal C2-C3 level and T1-T2 levels which are stable to mildly decreased compared to prior examination. Of note, there is unchanged extension of the C2-C3 epidural thickening/phlegmon to the skull base along the tectorial membrane and foramen magnum. 2. Additional interval decrease in enhancement and edema representing improving septic arthritis involving the right C7-T1 and left L4-L5 facets. Dictated by: Adiel Hackett MD The radiology attending physician has personally reviewed this study, and had reviewed and/or edited this written report and agrees with it. Electronically signed by: Agata Villasenor MD Odalis Tammi Lindo MD IMG MRI PROCEDURES Sheila l Result * SCAN - LABS (02/28/2025) us Provider Scanning Final Result * eGFR (02/10/2025 4:25 AM CDT) eGFR 61 >=60 mL/min/1. 73 m2 Comment: Interpretive Data Reference Interval Normal >/= 90 mL/min/1.73m2 Mildly decreased* 60 - 89 mL/min/1.73m2 Mildly to moderately decreased 45 - 59 mL/min/1.73m2 Moderately to severely decreased 30 - 44 mL/min/1.73m2 Severely decreased 15 - 29 mL/min/1.73m2 Kidney Failure < 15 mL/min/1.73m2 *Relative to young adult level Estimated glomerular filtration rate is determined by the 2020 CKD-EPI equation recommended by the National [employer] (A Unifying Approach to GFR Estimation: Recommendations of the NKF-ASK Task Force on Reassessing the Inclusion of Race in Diagnosing Kidney Disease, JASN 202). The CKD-EPI equation should not be used for patients with unstable renal function and has not been validated in children and those over 70. Current interpretive data was last reviewed 2021. Blood 02/10/2025 4:25 AM CDT 02/10/2025 5:43 AM CDT us Jude Streeter MD LAB BLOOD ORDERABLES Final Result [facility] Department [place] [address] * Differential, auto (02/10/2025 4:25 AM CDT) Neutrophil abs 2.92 1.50 - 6.50 K/cumm Imm gran abs 0.02 0.00 - 0.10 K/cumm [facility] Lymphocyte abs 1.18 0.80 - 3.30 K/cumm [facility] Monocyte abs 0.44 0.20 - 0.80 K/cumm [facility] Eosinophil abs 0.12 0.00 - 0.50 K/cumm [facility] Basophil abs 0.01 0.00 - 0.10 K/cumm [facility] Neutrophil pct 62.2 % [facility] Comment: Interpretive Data Percent cell count reference ranges are not reported, since discordance with absolute values may lead to misinterpretation of CBC data. Current Interpretive Data was last revised on 2017. Imm gran pct 0.4 % [facility] Comment: Interpretive Data Percent cell count reference ranges are not reported, since discordance with absolute values may lead to misinterpretation of CBC data. Current Interpretive Data was last revised on 2017. Lymphocyte pct 25.2 % [facility] Comment: Interpretive Data Percent cell count reference ranges are not reported, since discordance with absolute values may lead to misinterpretation of CBC data. Current Interpretive Data was last revised on 2017. Monocyte pct 9.4 % [facility] Comment: Interpretive Data Percent cell count reference ranges are not reported, since discordance with absolute values may lead to misinterpretation of CBC data. Current Interpretive Data was last revised on 2017. Eosinophil pct 2.6 % [facility] Comment: Interpretive Data Percent cell count reference ranges are not reported, since discordance with absolute values may lead to misinterpretation of CBC data. Current Interpretive Data was last revised on 2017. Basophil pct 0.2 % [facility] Comment: Interpretive Data Percent cell count reference ranges are not reported, since discordance with absolute values may lead to misinterpretation of CBC data. Current Interpretive Data was last revised on 2017. Blood 02/10/2025 4:25 AM CDT 02/10/2025 4:38 AM CDT us Jude Streeter MD LAB BLOOD ORDERABLES Final Result [facility] Department [place] [address] * (ABNORMAL) CBC with auto differential (02/10/2025 4:25 AM CDT) WBC 4.69 3.80 - 9.90 K/cumm Hgb 7.6(L) 11.9 - 15.5 g/dL [facility] Hct 23.6(L) 35.6 - 45.5 % [facility] Plt 195 150 - 400 K/cumm [facility] MPV 9.2 9.1 - 12.3 fL [facility] RBC 2.57(L) 3.90 - 5.20 M/cumm [facility] MCV 91.8 81.3 - 96.4 fL [facility] MCH 29.6 27.1 - 33.3 pg [facility] MCHC 32.2(L) 32.3 - 35.7 g/dL [facility] RDW CV 17.3(H) 11.1 - 14.9 % [facility] RDW SD 58.4(H) 35.7 - 48.1 fL [facility] NRBC abs 0.00 0.00 - 0.01 K/cumm [facility] Blood 02/10/2025 4:25 AM CDT 02/10/2025 4:38 AM CDT Jude Streeter MD LAB BLOOD ORDERABLES Final Result Performing Organization Address [facility] de Phone Number [facility] [place] [address] * Magnesium (02/10/2025 4:25 AM CDT) Pathologist [facility] [place] Magnesium 2.2 1.4 - 2.5 mg/dL Blood 02/10/2025 4:25 AM CDT 02/10/2025 5:43 AM CDT Jude Streeter MD LAB BLOOD ORDERABLES Final Result Performing Organization Address [facility] Phone Number [facility] [place] [address] * (ABNORMAL) Basic metabolic panel (02/10/2025 4:25 AM CDT) Pathologist [facility] [place] Sodium 134(L) 135 - 145 mmol/L Potassium, pl 3.9 3.3 - 4.9 mmol/L [facility] Chloride 102 97 - 110 mmol/L [facility] CO2 23 22 - 32 mmol/L [facility] Anion gap 9 2 - 15 mmol/L [facility] BUN 10 6 - 25 mg/dL [facility] Creatinine 0.95 0.60 - 1.10 mg/dL [facility] Glucose 84 70 - 199 mg/dL [facility] Comment: Interpretive Data Fasting glucose >/= 126 mg/dl is diagnostic for diabetes. Fasting is defined as no caloric intake for at least 8 hours. Fasting glucose between 100 mg/dl to 125 mg/dl is diagnostic of prediabetes. In a patient with classic symptoms of hyperglycemia or hyperglycemic crisis, a random glucose >/= 200 mg/dl is diagnostic for diabetes. In the absence of unequivocal hyperglycemia, results should be confirmed by repeat testing. The classification and Diagnosis of Diabetes Diabetes Care 2022; 46: S19-S40. Current interpretive data was last revised 2022. Calcium 8.7 8.5 - 10.3 mg/dL [facility] Blood 02/10/2025 4:25 AM CDT 02/10/2025 5:43 AM CDT Jude Streeter MD LAB BLOOD ORDERABLES Final Result [facility] Department [place] [address] * Infection Prevention Blade auris PCR, surveillance Axilla/Groin (02/09/2025 2:43 PM CDT) Pathologist [facility] [place] Blade auris DNA Not Detected Not Detected [facility] Comment: Interpretive Data Testing performed by [facility] Molecular Infectious Disease Laboratory using the Rich chioma 6800 Blade auris assay. This assay detects DNA from Blade auris using Real-Time PCR. This assay is laboratory developed and is not cleared by the [facility] Food and Drug Administration. The performance characteristics have been verified by the [facility] Molecular Infectious Disease Laboratory. Axilla/Groin 02/09/2025 2:43 PM CDT 02/09/2025 3:48 PM CDT Sukhdev Bell MD LAB MICROBIOLOGY - GENERAL ORDER RILEY Final Result Performing Organization Address City/[facility]/ZIP Co de Phone Number [facility] Department [place] [address] [facility] * ECG 12 lead (02/09/2025 12:39 PM CDT) Ventricular Rate EKG/Min 59 BPM [facility] Atrial Rate 59 BPM [facility] [place]-Interval (MSEC) 206 ms [facility] QRS-Interval (MSEC) 84 ms [facility] QT-Interval (MSEC) 456 ms [facility] QTc 451 ms [facility] R [place] 172 degrees [facility] T [place] 60 degrees [facility] Diagnosis Sinus bradycardia Right axis deviation Septal infarct (cited on or before 08-FEB-2025) Abnormal ECG When compared with ECG of 08-FEB-2025 07:51, Sinus rhythm has replaced Ectopic atrial rhythm QRS axis Shifted right Confirmed by XIOMARA GARCIA M.D ([id number]) on 02/09/2025 8:18:00 PM [facility] 02/09/2025 12:3 9 PM CDT 02/09/2025 8:18 PM CDT us Mary Alice Landeros NP ECG ORDERABLES Final Resu lt [facility] * Differential, auto (02/09/2025 5:28 AM CDT) Neutrophil abs 2.07 1.50 - 6.50 K/cumm Imm gran abs 0.02 0.00 - 0.10 K/cumm [facility] Lymphocyte abs 0.99 0.80 - 3.30 K/cumm [facility] Monocyte abs 0.42 0.20 - 0.80 K/cumm [facility] Eosinophil abs 0.10 0.00 - 0.50 K/cumm [facility] Basophil abs 0.01 0.00 - 0.10 K/cumm [facility] Neutrophil pct 57.3 % [facility] Comment: Interpretive Data Percent cell count reference ranges are not reported, since discordance with absolute values may lead to misinterpretation of CBC data. Current Interpretive Data was last revised on 2017. Imm gran pct 0.6 % [facility] Comment: Interpretive Data Percent cell count reference ranges are not reported, since discordance with absolute values may lead to misinterpretation of CBC data. Current Interpretive Data was last revised on 2017. Lymphocyte pct 27.4 % [facility] Comment: Interpretive Data Percent cell count reference ranges are not reported, since discordance with absolute values may lead to misinterpretation of CBC data. Current Interpretive Data was last revised on 2017. Monocyte pct 11.6 % [facility] Comment: Interpretive Data Percent cell count reference ranges are not reported, since discordance with absolute values may lead to misinterpretation of CBC data. Current Interpretive Data was last revised on 2017. Eosinophil pct 2.8 % [facility] Comment: Interpretive Data Percent cell count reference ranges are not reported, since discordance with absolute values may lead to misinterpretation of CBC data. Current Interpretive Data was last revised on 2017. Basophil pct 0.3 % [facility] Comment: Interpretive Data Percent cell count reference ranges are not reported, since discordance with absolute values may lead to misinterpretation of CBC data. Current Interpretive Data was last revised on 2017. Blood 02/09/2025 5:28 AM CDT 02/09/2025 6:57 AM CDT us Jude Streeter MD LAB BLOOD ORDERABLES Final Result [facility] One [facility] [place] [address] * (ABNORMAL) CBC with auto differential (02/09/2025 5:28 AM CDT) WBC 3.61(L) 3.80 - 9.90 K/cumm Hgb 7.8(L) 11.9 - 15.5 g/dL [facility] Hct 24.4(L) 35.6 - 45.5 % [facility] Plt 199 150 - 400 K/cumm [facility] MPV 9.2 9.1 - 12.3 fL [facility] RBC 2.66(L) 3.90 - 5.20 M/cumm [facility] MCV 91.7 81.3 - 96.4 fL [facility] MCH 29.3 27.1 - 33.3 pg [facility] MCHC 32.0(L) 32.3 - 35.7 g/dL [facility] RDW CV 17.2(H) 11.1 - 14.9 % [facility] RDW SD 57.3(H) 35.7 - 48.1 fL [facility] NRBC abs 0.00 0.00 - 0.01 K/cumm [facility] Blood 02/09/2025 5:28 AM CDT 02/09/2025 6:57 AM CDT Jude Streeter MD LAB BLOOD ORDERABLES Final Result Performing Organization Address City/State/[facility] Co de Phone Number [facility] [place] [address] * (ABNORMAL) Phosphorus (02/09/2025 5:28 AM CDT) Phosphorus, pl 2.2(L) 2.3 - 4.5 mg/dL Blood 02/09/2025 5:28 AM CDT 02/09/2025 6:57 AM CDT Jude Streeter MD LAB BLOOD ORDERABLES Final Result Performing Organization Address City/[facility] de Phone Number [facility] Department [place] [address] * eGFR (02/08/2025 9:34 PM CDT) eGFR 73 >=60 mL/min/1. 73 m2 Comment: Interpretive Data Reference Interval Normal >/= 90 mL/min/1.73m2 Mildly decreased* 60 - 89 mL/min/1.73m2 Mildly to moderately decreased 45 - 59 mL/min/1.73m2 Moderately to severely decreased 30 - 44 mL/min/1.73m2 Severely decreased 15 - 29 mL/min/1.73m2 Kidney Failure < 15 mL/min/1.73m2 *Relative to young adult level Estimated glomerular filtration rate is determined by the 2020 CKD-EPI equation recommended by the National Kidney Foundation (A Unifying Approach to GFR Estimation: Recommendations of the NKF-ASK Task Force on Reassessing the Inclusion of Race in Diagnosing Kidney Disease, JASN 2020). The CKD-EPI equation should not be used for patients with unstable renal function and has not been validated in children and those over 70. Current interpretive data was last reviewed 2021. Blood 02/08/2025 9:34 PM CDT 02/08/2025 9:58 PM CDT [facility] LAB BLOOD ORDERABLES Final Result Performing Organization Address [facility] Co de Phone Number [facility] [place] [address] * Type and screen (02/08/2025 9:34 PM CDT) Pathologist [facility] [place] ABO Rh O Negative [place], indirect Negative [facility] Blood 02/08/2025 9:34 PM CDT 02/08/2025 9:56 PM CDT Narrative [facility] - 02/08/2025 11:21 PM CDT Has the patient had Daratumumab or Isatuximab in the past 6 months?->Unknown [facility] LAB BLOOD BANK TEST O RDERABLES Final Result Performing Organization Address [facility] Co de Phone Number [facility] [place] [place] [address] * Magnesium (02/08/2025 9:34 PM CDT) [facility] Magnesium 1.9 1.4 - 2.5 mg/dL Blood 02/08/2025 9:34 PM CDT 02/08/2025 9:58 PM CDT [facility] LAB BLOOD ORDERABLES Final Result Performing Organization Address [facility] Co de Phone Number [facility] [place] [address] * (ABNORMAL) Hepatic function panel (02/08/2025 9:34 PM CDT) Pathologist [facility] [place] Bilirubin, total 0.3 0.1 - 1.2 mg/dL Bilirubin, direct <0.2 0.1 - 0.3 mg/dL [facility] Protein, pl 6.7 6.5 - 8.5 g/dL [facility] Albumin 3.9 3.5 - 5.0 g/dL [facility] Alk phos 144(H) 40 - 130 Units/L [facility] ALT 25 7 - 45 Units/L [facility] AST 26 10 - 45 Units/L [facility] Blood 02/08/2025 9:34 PM CDT 02/08/2025 9:58 PM CDT us Jude Streeter MD LAB BLOOD ORDERABLES Final Result [facility] Department [place] [address] * (ABNORMAL) Basic metabolic panel (02/08/2025 9:34 PM CDT) Sodium 131(L) 135 - 145 mmol/L Potassium, pl 3.0(L) 3.3 - 4.9 mmol/L [facility] Chloride 99 97 - 110 mmol/L [facility] CO2 26 22 - 32 mmol/L [facility] Anion gap 6 2 - 15 mmol/L [facility] BUN 8 6 - 25 mg/dL [facility] Creatinine 0.82 0.60 - 1.10 mg/dL [facility] Glucose 95 70 - 199 mg/dL [facility] Comment: Interpretive Data Fasting glucose >/= 126 mg/dl is diagnostic for diabetes. Fasting is defined as no caloric intake for at least 8 hours. Fasting glucose between 100 mg/dl to 125 mg/dl is diagnostic of prediabetes. In a patient with classic symptoms of hyperglycemia or hyperglycemic crisis, a random glucose >/= 200 mg/dl is diagnostic for diabetes. In the absence of unequivocal hyperglycemia, results should be confirmed by repeat testing. The classification and Diagnosis of Diabetes Diabetes Care 2021; 46: S19-S40. Current interpretive data was last revised 2022. Calcium 8.7 8.5 - 10.3 mg/dL [facility] Blood 02/08/2025 9:34 PM CDT 02/08/2025 9:58 PM CDT us Charissa Beltran DNP LAB BLOOD ORDERABLES Final Result Performing Organization Address City/[facility]/ZIP Co de Phone Number [facility] Department [place] [address] * POCT glucose (02/08/2025 11:49 AM CDT) Glucose, POC 129 70 - 199 mg/dL Blood 02/08/2025 11:4 9 AM CDT 02/08/2025 11:49 AM CDT us Jude Streeter MD LAB POCT ORDERABLES - DEVIC E Final Result Performing Organization Address [facility] de Phone Number [facility] [place] [address] * ECG 12 lead (02/08/2025 7:51 AM CDT) Ventricular Rate EKG/Min 67 BPM [facility] Atrial Rate 67 BPM [facility] OH-Interval (MSEC) 220 ms [facility] QRS-Interval (MSEC) 84 ms [facility] QT-Interval (MSEC) 422 ms [facility] QTc 445 ms [facility] P [place] -63 degrees [facility] R [place] 26 degrees [facility] T [place] 64 degrees [facility] Diagnosis Unusual P axis, possible ectopic atrial rhythm Anterior infarct (cited on or before 04-FEB-2025) Abnormal ECG When compared with ECG of 06-FEB-2025 07:34, No significant change was found Confirmed by XIOMARA GARCIA M.D ([id number]) on 02/08/2025 10:10:02 AM [facility] 02/08/2025 7:51 AM CDT 02/08/2025 10:10 AM CDT us Mary Alice Landeros NP ECG ORDERABLES Final Resu lt Performing Organization Address City/[facility]/ZIP Co de Phone Number [facility] * POCT glucose (02/08/2025 7:34 AM CDT) Glucose, POC 89 70 - 199 mg/dL Blood 02/08/2025 7:34 AM CDT 02/08/2025 7:34 AM CDT Jude Streeter MD LAB POCT ORDERABLES - DEVIC E Final Result Performing Organization Address City/[facility]/ZIP Co de Phone Number [facility] Department [place] [address] * eGFR (02/07/2025 9:25 PM CDT) eGFR 61 >=60 mL/min/1. 73 m2 Comment: Interpretive Data Reference Interval Normal >/= 90 mL/min/1.73m2 Mildly decreased* 60 - 89 mL/min/1.73m2 Mildly to moderately decreased 45 - 59 mL/min/1.73m2 Moderately to severely decreased 30 - 44 mL/min/1.73m2 Severely decreased 15 - 29 mL/min/1.73m2 Kidney Failure < 15 mL/min/1.73m2 *Relative to young adult level Estimated glomerular filtration rate is determined by the 2020 CKD-EPI equation recommended by the National Kidney Foundation (A Unifying Approach to GFR Estimation: Recommendations of the NKF-ASK Task Force on Reassessing the Inclusion of Race in Diagnosing Kidney Disease, JASN 2020). The CKD-EPI equation should not be used for patients with unstable renal function and has not been validated in children and those over 70. Current interpretive data was last reviewed 2021. Blood 02/07/2025 9:25 PM CDT 02/07/2025 10:35 PM CDT us Charissa Beltran DNP LAB BLOOD ORDERABLES Final Result Performing Organization Address City/[facility]/ZIP Co de Phone Number [facility] Department [place] [address] * (ABNORMAL) CBC without differential (02/07/2025 9:25 PM CDT) Pathologist [facility] [place] WBC 3.38(L) 3.80 - 9.90 K/cumm Hgb 7.4(L) 11.9 - 15.5 g/dL [facility] Hct 22.3(L) 35.6 - 45.5 % [facility] Plt 198 150 - 400 K/cumm [facility] MPV 9.2 9.1 - 12.3 fL [facility] RBC 2.45(L) 3.90 - 5.20 M/cumm [facility] MCV 91.0 81.3 - 96.4 fL [facility] MCH 30.2 27.1 - 33.3 pg [facility] MCHC 33.2 32.3 - 35.7 g/dL [facility] RDW CV 17.3(H) 11.1 - 14.9 % [facility] RDW SD 56.9(H) 35.7 - 48.1 fL [facility] NRBC abs 0.00 0.00 - 0.01 K/cumm [facility] Blood 02/07/2025 9:25 PM CDT 02/07/2025 10:35 PM CDT [facility] LAB BLOOD ORDERABLES Final Result Performing Organization Address [facility] de Phone Number [facility] [place] [address] * Phosphorus (02/07/2025 9:25 PM CDT) [facility] Phosphorus, pl 2.5 2.3 - 4.5 mg/dL Blood 02/07/2025 9:25 PM CDT 02/07/2025 10:35 PM CDT [facility] LAB BLOOD ORDERABLES Final Result Performing Organization Address [facility] Co de Phone Number [facility] [place] [employer] [place] [address] * Magnesium (02/07/2025 9:25 PM CDT) [facility] Magnesium 1.8 1.4 - 2.5 mg/dL Blood 02/07/2025 9:25 PM CDT 02/07/2025 10:35 PM CDT Charissa Beltran DNP LAB BLOOD ORDERABLES Final Result Performing Organization Address City/[facility]/ZIP Co de Phone Number [facility] Department [place] [address] * Creatine kinase (CK), total (02/07/2025 9:25 PM CDT) [facility] CK 48 30 - 200 Units/L Blood 02/07/2025 9:25 PM CDT 02/07/2025 10:35 PM CDT Zurdo Corona MD LAB BLOOD ORDERABLES Final Resul t Performing Organization Address [facility] Co de Phone Number [facility] Department [place] [address] * (ABNORMAL) Basic metabolic panel (02/07/2025 9:25 PM CDT) [facility] Sodium 134(L) 135 - 145 mmol/L Potassium, pl 3.7 3.3 - 4.9 mmol/L [facility] Chloride 101 97 - 110 mmol/L [facility] CO2 23 22 - 32 mmol/L [facility] Anion gap 10 2 - 15 mmol/L [facility] BUN 9 6 - 25 mg/dL [facility] Creatinine 0.95 0.60 - 1.10 mg/dL [facility] Glucose 87 70 - 199 mg/dL [facility] Comment: Interpretive Data Fasting glucose >/= 126 mg/dl is diagnostic for diabetes. Fasting is defined as no caloric intake for at least 8 hours. Fasting glucose between 100 mg/dl to 125 mg/dl is diagnostic of prediabetes. In a patient with classic symptoms of hyperglycemia or hyperglycemic crisis, a random glucose >/= 200 mg/dl is diagnostic for diabetes. In the absence of unequivocal hyperglycemia, results should be confirmed by repeat testing. The classification and Diagnosis of Diabetes Diabetes Care 202; 46: S19-S40. Current interpretive data was last revised 2022. Calcium 8.1(L) 8.5 - 10.3 mg/dL [facility] Blood 02/07/2025 9:25 PM CDT 02/07/2025 10:35 PM CDT Charissa Bhavya [facility] LAB BLOOD ORDERABLES Final Result [facility] Department [place] [address] * US Upper Extremity Right Limited (02/07/2025 3:53 PM CDT) Anatomical Region Laterality Modality Upper Extremities Right Ultrasound 02/07/2025 4:00 PM CDT Impressions 02/07/2025 4:00 PM CDT Findings as described above consistent with active synovitis with minimal if any joint effusion. Electronically signed by: Monico Zimmerman M.D. Narrative 02/07/2025 4:00 PM CDT EXAMINATION: US UPPER EXTREMITY RIGHT LIMITED HISTORY: Right elbow pain. Evaluate for effusion. COMPARISON: None. FINDINGS: There is relatively extensive synovial thickening seen best along the posterior aspect of the elbow in the olecranon fossa. This is associated with marked synovial hyperemia. There is very little joint effusion. Procedure Note Monico Zimmerman MD - 02/07/2025 EXAMINATION: US UPPER EXTREMITY RIGHT LIMITED HISTORY: Right elbow pain. Evaluate for effusion. COMPARISON: None. FINDINGS: There is relatively extensive synovial thickening seen best along the posterior aspect of the elbow in the olecranon fossa. This is associated with marked synovial hyperemia. There is very little joint effusion. IMPRESSION: Findings as described above consistent with active synovitis with minimal if any joint effusion. Electronically signed by: Monico Zimmerman M.D. Zurdo Corona MD IMG PROCEDURES Final Result * Infection Prevention Blade auris PCR, surveillance Axilla/Groin (02/07/2025 4:52 AM CDT) Blade auris DNA Not Detected Not Detected [facility] Comment: Interpretive Data Testing performed by [facility] Molecular Infectious Disease Laboratory using the Rich chioma 6800 Blade auris assay. This assay detects DNA from Blade auris using Real-Time PCR. This assay is laboratory developed and is not cleared by the [facility] Food and Drug Administration. The performance characteristics have been verified by the [facility] Molecular Infectious Disease Laboratory. Axilla/Groin 02/07/2025 4:52 AM CDT 02/07/2025 6:03 AM CDT Sukhdev Bell MD LAB MICROBIOLOGY - GENERAL ORDER RILEY Final Result [facility] One [facility] Department [place] [address] [facility] * (ABNORMAL) eGFR (02/06/2025 9:17 PM CDT) eGFR 58(L) >=60 mL/min/1. 73 m2 Comment: Interpretive Data Reference Interval Normal >/= 90 mL/min/1.73m2 Mildly decreased* 60 - 89 mL/min/1.73m2 Mildly to moderately decreased 45 - 59 mL/min/1.73m2 Moderately to severely decreased 30 - 44 mL/min/1.73m2 Severely decreased 15 - 29 mL/min/1.73m2 Kidney Failure < 15 mL/min/1.73m2 *Relative to young adult level Estimated glomerular filtration rate is determined by the 2020 CKD-EPI equation recommended by the National Kidney Foundation (A Unifying Approach to GFR Estimation: Recommendations of the NKF-ASK Task Force on Reassessing the Inclusion of Race in Diagnosing Kidney Disease, JASN 2020). The CKD-EPI equation should not be used for patients with unstable renal function and has not been validated in children and those over 70. Current interpretive data was last reviewed 2021. Blood 02/06/2025 9:17 PM CDT 02/06/2025 10:20 PM CDT Charissa Bahvya Beltran DNP LAB BLOOD ORDERABLES Final Result [facility] Department [place] [address] * (ABNORMAL) Differential, auto (02/06/2025 9:17 PM CDT) Neutrophil abs 1.01(L) 1.50 - 6.50 K/cumm Imm gran abs 0.01 0.00 - 0.10 K/cumm [facility] Lymphocyte abs 0.69(L) 0.80 - 3.30 K/cumm [facility] Monocyte abs 0.45 0.20 - 0.80 K/cumm [facility] Eosinophil abs 0.04 0.00 - 0.50 K/cumm [facility] Basophil abs 0.00 0.00 - 0.10 K/cumm [facility] Neutrophil pct 45.8 % [facility] Comment: Interpretive Data Percent cell count reference ranges are not reported, since discordance with absolute values may lead to misinterpretation of CBC data. Current Interpretive Data was last revised on 2017. Imm gran pct 0.5 % [facility] Comment: Interpretive Data Percent cell count reference ranges are not reported, since discordance with absolute values may lead to misinterpretation of CBC data. Current Interpretive Data was last revised on 2017. Lymphocyte pct 31.4 % [facility] Comment: Interpretive Data Percent cell count reference ranges are not reported, since discordance with absolute values may lead to misinterpretation of CBC data. Current Interpretive Data was last revised on 2017. Monocyte pct 20.5 % [facility] Comment: Interpretive Data Percent cell count reference ranges are not reported, since discordance with absolute values may lead to misinterpretation of CBC data. Current Interpretive Data was last revised on 2017. Eosinophil pct 1.8 % [facility] Comment: Interpretive Data Percent cell count reference ranges are not reported, since discordance with absolute values may lead to misinterpretation of CBC data. Current Interpretive Data was last revised on 2017. Basophil pct 0.0 % [facility] Comment: Interpretive Data Percent cell count reference ranges are not reported, since discordance with absolute values may lead to misinterpretation of CBC data. Current Interpretive Data was last revised on 2017. Blood 02/06/2025 9:17 PM CDT 02/06/2025 10:25 PM CDT Odalis Lindo MD LAB BLOOD ORDERABLES Fi nal Result [facility] [place] [address] * (ABNORMAL) CBC with auto differential (02/06/2025 9:17 PM CDT) WBC 2.33(L) 3.80 - 9.90 K/cumm Hgb 7.2(L) 11.9 - 15.5 g/dL [facility] Hct 21.8(L) 35.6 - 45.5 % [facility] Plt 183 150 - 400 K/cumm [facility] MPV 9.3 9.1 - 12.3 fL [facility] RBC 2.34(L) 3.90 - 5.20 M/cumm [facility] MCV 93.2 81.3 - 96.4 fL [facility] MCH 30.8 27.1 - 33.3 pg [facility] MCHC 33.0 32.3 - 35.7 g/dL [facility] RDW CV 17.2(H) 11.1 - 14.9 % [facility] RDW SD 57.9(H) 35.7 - 48.1 fL [facility] NRBC abs 0.00 0.00 - 0.01 K/cumm [facility] Blood 02/06/2025 9:17 PM CDT 02/06/2025 10:25 PM CDT Odalis Lindo MD LAB BLOOD ORDERABLES Fi nal Result Performing Organization Address [facility] Co de Phone Number [facility] Department [place] [address] * (ABNORMAL) CBC without differential (02/06/2025 9:17 PM CDT) Pathologist [facility] [place] WBC 2.33(L) 3.80 - 9.90 K/cumm Hgb 7.2(L) 11.9 - 15.5 g/dL [facility] Hct 21.8(L) 35.6 - 45.5 % [facility] Plt 183 150 - 400 K/cumm [facility] MPV 9.3 9.1 - 12.3 fL [facility] RBC 2.34(L) 3.90 - 5.20 M/cumm [facility] MCV 93.2 81.3 - 96.4 fL [facility] MCH 30.8 27.1 - 33.3 pg [facility] MCHC 33.0 32.3 - 35.7 g/dL [facility] RDW CV 17.2(H) 11.1 - 14.9 % [facility] RDW SD 57.9(H) 35.7 - 48.1 fL [facility] NRBC abs 0.00 0.00 - 0.01 K/cumm [facility] Blood 02/06/2025 9:17 PM CDT 02/06/2025 10:20 PM CDT Charissa Beltran DNP LAB BLOOD ORDERABLES Final Result Performing Organization Address [facility]/ZIP Co de Phone Number [facility] Department [place] [address] * Phosphorus (02/06/2025 9:17 PM CDT) Pathologist [facility] [place] Phosphorus, pl 3.5 2.3 - 4.5 mg/dL Blood 02/06/2025 9:17 PM CDT 02/06/2025 10:20 PM CDT [facility] LAB BLOOD ORDERABLES Final Result [facility] [place] [address] * Magnesium (02/06/2025 9:17 PM CDT) [facility] Magnesium 2.0 1.4 - 2.5 mg/dL Blood 02/06/2025 9:17 PM CDT 02/06/2025 10:20 PM CDT Charissa Bhavya [facility] LAB BLOOD ORDERABLES Final Result Performing Organization Address [facility] de Phone Number [facility] [place] [address] * (ABNORMAL) Basic metabolic panel (02/06/2025 9:17 PM CDT) [facility] Sodium 138 135 - 145 mmol/L Potassium, pl 3.6 3.3 - 4.9 mmol/L [facility] Chloride 105 97 - 110 mmol/L [facility] CO2 25 22 - 32 mmol/L [facility] Anion gap 8 2 - 15 mmol/L [facility] BUN 10 6 - 25 mg/dL [facility] Creatinine 0.99 0.60 - 1.10 mg/dL [facility] Glucose 82 70 - 199 mg/dL [facility] Comment: Interpretive Data Fasting glucose >/= 126 mg/dl is diagnostic for diabetes. Fasting is defined as no caloric intake for at least 8 hours. Fasting glucose between 100 mg/dl to 125 mg/dl is diagnostic of prediabetes. In a patient with classic symptoms of hyperglycemia or hyperglycemic crisis, a random glucose >/= 200 mg/dl is diagnostic for diabetes. In the absence of unequivocal hyperglycemia, results should be confirmed by repeat testing. The classification and Diagnosis of Diabetes Diabetes Care 2021; 46: S19-S40. Current interpretive data was last revised 2022. Calcium 7.9(L) 8.5 - 10.3 mg/dL [facility] Blood 02/06/2025 9:17 PM CDT 02/06/2025 10:20 PM CDT Charissa Beltran DNP LAB BLOOD ORDERABLES Final Result Performing Organization Address [facility] de Phone Number [facility] [place] [address] * (ABNORMAL) Erythrocyte sedimentation rate (02/06/2025 1:33 PM CDT) Pathologist [facility] [place] Erythrocyte sedimentation rate 72(H) 1 - 30 mm/hr Blood 02/06/2025 1:33 PM CDT 02/06/2025 1:45 PM CDT Zurdo Corona MD LAB BLOOD ORDERABLES Final Resul t Performing Organization Address [facility] de Phone Number [facility] [place] [address] * (ABNORMAL) CRP (acute phase) (02/06/2025 12:45 PM CDT) Pathologist [facility] [place] CRP 41.2(H) <=10.0 mg/L Blood 02/06/2025 12:4 5 PM CDT 02/06/2025 1:45 PM CDT Zurdo Corona MD LAB BLOOD ORDERABLES Final Resul t Performing Organization Address [facility] [place] [address] * ECG 12 lead (02/06/2025 7:34 AM CDT) Ventricular Rate EKG/Min 66 BPM [facility] Atrial Rate 66 BPM [facility] OH-Interval (MSEC) 214 ms [facility] QRS-Interval (MSEC) 78 ms [facility] QT-Interval (MSEC) 406 ms [facility] QTc 425 ms [facility] P [place] -46 degrees [facility] R [place] 49 degrees [facility] T [place] 75 degrees [facility] Diagnosis Sinus rhythm Abnormal ECG Confirmed by Janneth Willingham MD ([id number]) on 02/08/2025 9:52:28 AM [facility] 02/06/2025 7:34 AM CDT 02/08/2025 9:52 AM CDT us Mary Alice Landeros [employer] ECG ORDERABLES Final Resu lt [facility] * (ABNORMAL) eGFR (02/05/2025 10:23 PM CDT) eGFR 59(L) >=60 mL/min/1. 73 m2 Comment: Interpretive Data Reference Interval Normal >/= 90 mL/min/1.73m2 Mildly decreased* 60 - 89 mL/min/1.73m2 Mildly to moderately decreased 45 - 59 mL/min/1.73m2 Moderately to severely decreased 30 - 44 mL/min/1.73m2 Severely decreased 15 - 29 mL/min/1.73m2 Kidney Failure < 15 mL/min/1.73m2 *Relative to young adult level Estimated glomerular filtration rate is determined by the 2020 CKD-EPI equation recommended by the National Kidney Foundation (A Unifying Approach to GFR Estimation: Recommendations of the NKF-ASK Task Force on Reassessing the Inclusion of Race in Diagnosing Kidney Disease, JASN 2020). The CKD-EPI equation should not be used for patients with unstable renal function and has not been validated in children and those over 70. Current interpretive data was last reviewed 2021. Blood 02/05/2025 10:2 3 PM CDT 02/05/2025 10:49 PM CDT us Charissa Beltran DNP LAB BLOOD ORDERABLES Final Result [facility] Department [place] [address] * (ABNORMAL) CBC without differential (02/05/2025 10:23 PM CDT) WBC 2.76(L) 3.80 - 9.90 K/cumm Hgb 7.5(L) 11.9 - 15.5 g/dL [facility] Hct 22.7(L) 35.6 - 45.5 % [facility] Plt 202 150 - 400 K/cumm [facility] MPV 9.2 9.1 - 12.3 fL [facility] RBC 2.48(L) 3.90 - 5.20 M/cumm [facility] MCV 91.5 81.3 - 96.4 fL [facility] MCH 30.2 27.1 - 33.3 pg [facility] MCHC 33.0 32.3 - 35.7 g/dL [facility] RDW CV 17.3(H) 11.1 - 14.9 % [facility] RDW SD 57.9(H) 35.7 - 48.1 fL [facility] NRBC abs 0.00 0.00 - 0.01 K/cumm [facility] Blood 02/05/2025 10:2 3 PM CDT 02/05/2025 10:48 PM CDT Charissa Beltran [facility] LAB BLOOD ORDERABLES Final Result Performing Organization Address City/[facility] Co de Phone Number [facility] Department [place] [address] * Type and screen (02/05/2025 10:23 PM CDT) Pathologist [facility] [place] ABO Rh O Negative [place], indirect Negative [facility] Blood 02/05/2025 10:2 3 PM CDT 02/05/2025 10:55 PM CDT Narrative [facility] - 02/06/2025 12:07 AM CDT Has the patient had Daratumumab or Isatuximab in the past 6 months?->Unknown Charissa Beltran [facility] BLOOD BANK TEST O RDERABLES Final Result Performing Organization Address City/[facility]/ZIP Co de Phone Number [facility] [place] [address] * Phosphorus (02/05/2025 10:23 PM CDT) [facility] Phosphorus, pl 3.2 2.3 - 4.5 mg/dL Blood 02/05/2025 10:2 3 PM CDT 02/05/2025 10:49 PM CDT Charissa Beltran [facility] LAB BLOOD [place] [address] * Magnesium (02/05/2025 10:23 PM CDT) [facility] Magnesium 2.0 1.4 - 2.5 mg/dL Blood 02/05/2025 10:2 3 PM CDT 02/05/2025 10:49 PM CDT Charissa Beltran [facility] LAB BLOOD ORDERABLES Final Result Performing Organization Address City/State/[facility] [place] [address] * Basic metabolic panel (02/05/2025 10:23 PM CDT) [facility] Sodium 137 135 - 145 mmol/L Potassium, pl 3.8 3.3 - 4.9 mmol/L [facility] Chloride 104 97 - 110 mmol/L [facility] CO2 24 22 - 32 mmol/L [facility] Anion gap 9 2 - 15 mmol/L [facility] BUN 11 6 - 25 mg/dL [facility] Creatinine 0.98 0.60 - 1.10 mg/dL [facility] Glucose 102 70 - 199 mg/dL [facility] Comment: Interpretive Data Fasting glucose >/= 126 mg/dl is diagnostic for diabetes. Fasting is defined as no caloric intake for at least 8 hours. Fasting glucose between 100 mg/dl to 125 mg/dl is diagnostic of prediabetes. In a patient with classic symptoms of hyperglycemia or hyperglycemic crisis, a random glucose >/= 200 mg/dl is diagnostic for diabetes. In the absence of unequivocal hyperglycemia, results should be confirmed by repeat testing. The classification and Diagnosis of Diabetes Diabetes Care 2021; 46: S19-S40. Current interpretive data was last revised 2022. Calcium 8.5 8.5 - 10.3 mg/dL [facility] Blood 02/05/2025 10:2 3 PM CDT 02/05/2025 10:49 PM CDT us Charissa Beltran [facility] LAB BLOOD ORDERABLES Final Result [facility] Department [place] [address] * (ABNORMAL) eGFR (02/04/2025 9:21 PM CDT) eGFR 53(L) >=60 mL/min/1. 73 m2 Comment: Interpretive Data Reference Interval Normal >/= 90 mL/min/1.73m2 Mildly decreased* 60 - 89 mL/min/1.73m2 Mildly to moderately decreased 45 - 59 mL/min/1.73m2 Moderately to severely decreased 30 - 44 mL/min/1.73m2 Severely decreased 15 - 29 mL/min/1.73m2 Kidney Failure < 15 mL/min/1.73m2 *Relative to young adult level Estimated glomerular filtration rate is determined by the 2020 CKD-EPI equation recommended by the National Kidney Foundation (A Unifying Approach to GFR Estimation: Recommendations of the NKF-ASK Task Force on Reassessing the Inclusion of Race in Diagnosing Kidney Disease, JASN 202). The CKD-EPI equation should not be used for patients with unstable renal function and has not been validated in children and those over 70. Current interpretive data was last reviewed 2021. Blood 02/04/2025 9:21 PM CDT 02/04/2025 10:41 PM CDT us Charissa Beltran [facility] LAB BLOOD ORDERABLES Final Result Performing Organization Address City/[facility]/ZIP Co de Phone Number [facility] [place] [employer] [place] [address] * (ABNORMAL) CBC without differential (02/04/2025 9:21 PM CDT) Pathologist [facility] [place] WBC 3.36(L) 3.80 - 9.90 K/cumm Hgb 8.2(L) 11.9 - 15.5 g/dL [facility] Hct 24.9(L) 35.6 - 45.5 % [facility] Plt 247 150 - 400 K/cumm [facility] MPV 9.6 9.1 - 12.3 fL [facility] RBC 2.72(L) 3.90 - 5.20 M/cumm [facility] MCV 91.5 81.3 - 96.4 fL [facility] MCH 30.1 27.1 - 33.3 pg [facility] MCHC 32.9 32.3 - 35.7 g/dL [facility] RDW CV 17.4(H) 11.1 - 14.9 % [facility] RDW SD 58.2(H) 35.7 - 48.1 fL [facility] NRBC abs 0.00 0.00 - 0.01 K/cumm [facility] Blood 02/04/2025 9:21 PM CDT 02/04/2025 10:41 PM CDT Charissa Beltran [facility] LAB BLOOD ORDERABLES Final Result [facility] [employer] [place], [place] [id number] * Phosphorus (02/04/2025 9:21 PM CDT) Pathologist [facility] [place] Phosphorus, pl 3.8 2.3 - 4.5 mg/dL Blood 02/04/2025 9:21 PM CDT 02/04/2025 10:41 PM CDT Charissa Beltran [facility] LAB BLOOD ORDERABLES Final Result [facility] Department [place] [address] * Magnesium (02/04/2025 9:21 PM CDT) [facility] Magnesium 2.0 1.4 - 2.5 mg/dL Blood 02/04/2025 9:21 PM CDT 02/04/2025 10:41 PM CDT Charissa Bhavya Beltran [facility] BLOOD ORDERABLES Final Result Performing Organization Address [facility] de Phone Number [facility] Department [place] [address] * Basic metabolic panel (02/04/2025 9:21 PM CDT) [facility] Sodium 136 135 - 145 mmol/L Potassium, pl 4.0 3.3 - 4.9 mmol/L [facility] Chloride 100 97 - 110 mmol/L [facility] CO2 25 22 - 32 mmol/L [facility] Anion gap 11 2 - 15 mmol/L [facility] BUN 12 6 - 25 mg/dL [facility] Creatinine 1.07 0.60 - 1.10 mg/dL [facility] Glucose 82 70 - 199 mg/dL [facility] Comment: Interpretive Data Fasting glucose >/= 126 mg/dl is diagnostic for diabetes. Fasting is defined as no caloric intake for at least 8 hours. Fasting glucose between 100 mg/dl to 125 mg/dl is diagnostic of prediabetes. In a patient with classic symptoms of hyperglycemia or hyperglycemic crisis, a random glucose >/= 200 mg/dl is diagnostic for diabetes. In the absence of unequivocal hyperglycemia, results should be confirmed by repeat testing. The classification and Diagnosis of Diabetes Diabetes Care 202; 46: S19-S40. Current interpretive data was last revised 2022. Calcium 8.6 8.5 - 10.3 mg/dL [facility] Blood 02/04/2025 9:21 PM CDT 02/04/2025 10:41 PM CDT us Charissa Latif Devin DNP LAB BLOOD ORDERABLES Final Result [facility] Department [place] [address] * XR Spine Cervical 2 or 3 Views (02/04/2025 8:44 PM CDT) Anatomical Region Laterality Modality Spine N/A Computed Radiogr aphy 02/05/2025 10:2 2 AM CDT Impressions 02/05/2025 10:22 AM CDT 1. Unchanged anterior discectomy and instrumented fusion from C4-C7 Electronically signed by: Florin Silverio MD Narrative 02/05/2025 10:22 AM CDT EXAMINATION: XR SPINE CERVICAL 2 OR 3 VIEWS HISTORY: Neck pain. FINDINGS: Comparison to 02/03/2025. Unchanged anterior discectomy and instrumented fusion from C4-C7. Hardware is intact. Vertebral body heights preserved. Severe degenerative disc disease at C3-C4. Partially visualized ventricular shunt. Sternotomy wires. Procedure Note Florin Silverio MD - 02/05/2025 EXAMINATION: XR SPINE CERVICAL 2 OR 3 VIEWS HISTORY: Neck pain. FINDINGS: Comparison to 02/03/2025. Unchanged anterior discectomy and instrumented fusion from C4-C7. Hardware is intact. Vertebral body heights preserved. Severe degenerative disc disease at C3-C4. Partially visualized ventricular shunt. Sternotomy wires. IMPRESSION: 1. Unchanged anterior discectomy and instrumented fusion from C4-C7 Electronically signed by: Florin Silverio MD us Jennifer Ray [employer] IMG XR PROCEDURES Final Res ult * ECG 12 lead (02/04/2025 5:22 AM CDT) Ventricular Rate EKG/Min 68 BPM [facility] Atrial Rate 68 BPM [facility] OH-Interval (MSEC) 194 ms [facility] QRS-Interval (MSEC) 66 ms [facility] QT-Interval (MSEC) 410 ms [facility] QTc 435 ms [facility] R [place] 67 degrees [facility] T [place] 78 degrees [facility] Diagnosis Normal sinus rhythm Low voltage QRS Possible Anterolateral infarct (cited on or before 04-FEB-2025) Abnormal ECG Confirmed by Janneth Willingham MD ([id number]) on 02/06/2025 1:31:00 PM [facility] 02/04/2025 5:22 AM CDT 02/06/2025 1:31 PM CDT us Mary Alice Landeros [employer] ECG ORDERABLES Final Resu lt [facility] * MRI Spine Cervical and Thoracic W WO Contrast (02/03/2025 11:24 PM CDT) Anatomical Region Laterality Modality Spine N/A Magnetic Resonan ce 02/04/2025 11:3 2 AM CDT Impressions 02/04/2025 11:36 AM CDT 1. Redemonstrated postoperative changes of anterior discectomy and instrumented fusion from C4-C7. 2. Interval mildly decrease in size of the dorsal epidural abscess at C2-C3 level with persistent circumferential enhancement along the anterior and dorsal aspect of the epidural spaces with further extension to the posterior fossa and supratentorial region. MRI brain without and with contrast can be obtained for further evaluation. 3. Worsening of the marrow edema and enhancement involving right C7-T1 facet joint, concerning for septic arthritis. 4. 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 Persistent small dorsal epidural abscess at the level of T1-T2 with interval mildly increasing edema and enhancement in the posterior elements of T2. Overall, diffuse circumferential epidural enhancement at the level of entire thoracic spine has slightly increase compared to prior study. Dictated by: Nelson Sullivan M.D. The radiology attending physician has personally reviewed this study, and had reviewed and/or edited this written report and agrees with it. Electronically signed by: Agata Villasenor MD Narrative 02/04/2025 11:36 AM CDT EXAMINATION: 1. Magnetic resonance imaging (MRI) of the cervical spine without and with contrast 2. Magnetic resonance imaging (MRI) of the thoracic spine without and with contrast HISTORY: 79 years-old Female with re-evaluation of spinal infection with subdural empyema. TECHNIQUE: Multiplanar multi-weighted MRI of the cervical spine was performed without and with intravenous contrast using the standard protocol. Multiplanar multi-weighted MRI of the thoracic was performed without and with intravenous contrast using the standard protocol. Contrast information: 15 mL Gadoterate Meglumine IV COMPARISON: MRI cervical spine from 01/01/2025 and MRI thoracic and lumbar spine from 01/02/2025. FINDINGS: CERVICAL SPINE: Redemonstrated postoperative changes of anterior discectomy and instrumented fusion from C4-C7. There is mild retrolisthesis of C3 on C4. There is bone marrow edema and enhancement throughout the C2 vertebral body/dens. There is interval significantly decrease in size of the prevertebral edema at the level of C2-C3. Interval mildly decreased interspinous edema C2-C4. There is slightly decrease in size of the epidural abscess along the dorsal aspect of the C2-C3 level, measuring 1.5 cm in thickness, causing moderate spinal canal stenosis. There is persistent enhancement along the anterior and dorsal aspect of the epidural spaces with further extension to the posterior fossa and supratentorial region. Worsening of the marrow edema and enhancement involving right C7-T1 facet joint, concerning for septic arthritis. No acute fracture is identified. The spinal cord demonstrates normal signal intensity on all sequences. There are no annular fissures identified. Normal signal voids are present in the vertebral arteries. There is a microhemorrhage in the mike. Degenerative changes throughout the cervical spine, worst at C3-C4, causing severe spinal canal stenosis. There are multilevel severe uncovertebral joint disease with same degree of neural foraminal stenosis. THORACIC SPINE: Redemonstrated edema and enhancement surrounding T1-T2 endplates and intervertebral disc space as well as prevertebral edema, mildly decreased from prior study. Interval increase in edema and enhancement in the posterior elements of T2. Interval mildly increased in diffuse epidural enhancement along the entire thoracic spine with a small epidural abscess dorsally at the level of T1 and T2, similar to prior study. Redemonstrated bone marrow edema centered in the endplates and disc at T12-L1 with similar epidural enhancement prevertebral edema. Mild S-shaped curvature of the thoracic spine. Multilevel Modic type II changes are present in the thoracic spine. Multilevel degenerative disc bulges. No high-grade spinal canal stenosis is noted. No spinal cord signal abnormality. Bilateral small volume pleural effusions with associated atelectasis. Procedure Note Agata Villasenor MD PhD - 02/04/2025 EXAMINATION: 1. Magnetic resonance imaging (MRI) of the cervical spine without and with contrast 2. Magnetic resonance imaging (MRI) of the thoracic spine without and with contrast HISTORY: 79 years-old Female with re-evaluation of spinal infection with subdural empyema. TECHNIQUE: Multiplanar multi-weighted MRI of the cervical spine was performed without and with intravenous contrast using the standard protocol. Multiplanar multi-weighted MRI of the thoracic was performed without and with intravenous contrast using the standard protocol. Contrast information: 15 mL Gadoterate Meglumine IV COMPARISON: MRI cervical spine from 01/01/2025 and MRI thoracic and lumbar spine from 01/02/2025. FINDINGS: CERVICAL SPINE: Redemonstrated postoperative changes of anterior discectomy and instrumented fusion from C4-C7. There is mild retrolisthesis of C3 on C4. There is bone marrow edema and enhancement throughout the C2 vertebral body/dens. There is interval significantly decrease in size of the prevertebral edema at the level of C2-C3. Interval mildly decreased interspinous edema C2-C4. There is slightly decrease in size of the epidural abscess along the dorsal aspect of the C2-C3 level, measuring 1.5 cm in thickness, causing moderate spinal canal stenosis. There is persistent enhancement along the anterior and dorsal aspect of the epidural spaces with further extension to the posterior fossa and supratentorial region. Worsening of the marrow edema and enhancement involving right C7-T1 facet joint, concerning for septic arthritis. No acute fracture is identified. The spinal cord demonstrates normal signal intensity on all sequences. There are no annular fissures identified. Normal signal voids are present in the vertebral arteries. There is a microhemorrhage in the mike. Degenerative changes throughout the cervical spine, worst at C3-C4, causing severe spinal canal stenosis. There are multilevel severe uncovertebral joint disease with same degree of neural foraminal stenosis. THORACIC SPINE: Redemonstrated edema and enhancement surrounding T1-T2 endplates and intervertebral disc space as well as prevertebral edema, mildly decreased from prior study. Interval increase in edema and enhancement in the posterior elements of T2. Interval mildly increased in diffuse epidural enhancement along the entire thoracic spine with a small epidural abscess dorsally at the level of T1 and T2, similar to prior study. Redemonstrated bone marrow edema centered in the endplates and disc at T12-L1 with similar epidural enhancement prevertebral edema. Mild S-shaped curvature of the thoracic spine. Multilevel Modic type II changes are present in the thoracic spine. Multilevel degenerative disc bulges. No high-grade spinal canal stenosis is noted. No spinal cord signal abnormality. Bilateral small volume pleural effusions with associated atelectasis. IMPRESSION: 1. Redemonstrated postoperative changes of anterior discectomy and instrumented fusion from C4-C7. 2. Interval mildly decrease in size of the dorsal epidural abscess at C2-C3 level with persistent circumferential enhancement along the anterior and dorsal aspect of the epidural spaces with further extension to the posterior fossa and supratentorial region. MRI brain without and with contrast can be obtained for further evaluation. 3. Worsening of the marrow edema and enhancement involving right C7-T1 facet joint, concerning for septic arthritis. 4. 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 Persistent small dorsal epidural abscess at the level of T1-T2 with interval mildly increasing edema and enhancement in the posterior elements of T2. Overall, diffuse circumferential epidural enhancement at the level of entire thoracic spine has slightly increase compared to prior study. Dictated by: Nelson Sullivan M.D. The radiology attending physician has personally reviewed this study, and had reviewed and/or edited this written report and agrees with it. Electronically signed by: Agata Villasenor MD Mary Alice Landeros NP IM MRI PROCEDURES Final R esult * (ABNORMAL) eGFR (02/03/2025 9:32 PM CDT) eGFR 51(L) >=60 mL/min/1. 73 m2 Comment: Interpretive Data Reference Interval Normal >/= 90 mL/min/1.73m2 Mildly decreased* 60 - 89 mL/min/1.73m2 Mildly to moderately decreased 45 - 59 mL/min/1.73m2 Moderately to severely decreased 30 - 44 mL/min/1.73m2 Severely decreased 15 - 29 mL/min/1.73m2 Kidney Failure < 15 mL/min/1.73m2 *Relative to young adult level Estimated glomerular filtration rate is determined by the 2020 CKD-EPI equation recommended by the National Kidney Foundation (A Unifying Approach to GFR Estimation: Recommendations of the NKF-ASK Task Force on Reassessing the Inclusion of Race in Diagnosing Kidney Disease, JASN 202). The CKD-EPI equation should not be used for patients with unstable renal function and has not been validated in children and those over 70. Current interpretive data was last reviewed 2021. Blood 02/03/2025 9:32 PM CDT 02/03/2025 10:26 PM CDT Charissa Bel[facility]an [facility] LAB BLOOD ORDERABLES Final Result [facility] Department [place] [address] * (ABNORMAL) CBC without differential (02/03/2025 9:32 PM CDT) WBC 4.15 3.80 - 9.90 K/cumm Hgb 7.6(L) 11.9 - 15.5 g/dL [facility] Hct 22.8(L) 35.6 - 45.5 % [facility] Plt 219 150 - 400 K/cumm [facility] MPV 9.4 9.1 - 12.3 fL [facility] RBC 2.50(L) 3.90 - 5.20 M/cumm [facility] MCV 91.2 81.3 - 96.4 fL [facility] MCH 30.4 27.1 - 33.3 pg [facility] MCHC 33.3 32.3 - 35.7 g/dL [facility] RDW CV 17.2(H) 11.1 - 14.9 % [facility] RDW SD 57.1(H) 35.7 - 48.1 fL [facility] NRBC abs 0.00 0.00 - 0.01 K/cumm [facility] Blood 02/03/2025 9:32 PM CDT 02/03/2025 10:27 PM CDT Charissa Beltran [facility] LAB BLOOD ORDERABLES Final Result Performing Organization Address City/[facility] Co de Phone Number [facility] [place] [address] * Phosphorus (02/03/2025 9:32 PM CDT) [facility] Phosphorus, pl 3.1 2.3 - 4.5 mg/dL Blood 02/03/2025 9:32 PM CDT 02/03/2025 10:26 PM CDT Charissa Beltran [facility] BLOOD ORDERABLES Final Result Performing Organization Address [facility] de Phone Number [facility] [place] [address] * Magnesium (02/03/2025 9:32 PM CDT) [facility] Magnesium 2.0 1.4 - 2.5 mg/dL Blood 02/03/2025 9:32 PM CDT 02/03/2025 10:26 PM CDT Charissa Beltran [facility] BLOOD ORDERABLES Final Result Performing Organization Address [facility] [place] [address] * (ABNORMAL) Basic metabolic panel (02/03/2025 9:32 PM CDT) [facility] Sodium 131(L) 135 - 145 mmol/L Potassium, pl 3.6 3.3 - 4.9 mmol/L [facility] Chloride 97 97 - 110 mmol/L [facility] CO2 23 22 - 32 mmol/L [facility] Anion gap 11 2 - 15 mmol/L [facility] BUN 12 6 - 25 mg/dL [facility] Creatinine 1.10 0.60 - 1.10 mg/dL [facility] Glucose 97 70 - 199 mg/dL [facility] Comment: Interpretive Data Fasting glucose >/= 126 mg/dl is diagnostic for diabetes. Fasting is defined as no caloric intake for at least 8 hours. Fasting glucose between 100 mg/dl to 125 mg/dl is diagnostic of prediabetes. In a patient with classic symptoms of hyperglycemia or hyperglycemic crisis, a random glucose >/= 200 mg/dl is diagnostic for diabetes. In the absence of unequivocal hyperglycemia, results should be confirmed by repeat testing. The classification and Diagnosis of Diabetes Diabetes Care 2021; 46: S19-S40. Current interpretive data was last revised 2022. Calcium 8.4(L) 8.5 - 10.3 mg/dL [facility] Blood 02/03/2025 9:32 PM CDT 02/03/2025 10:26 PM CDT Charissa Beltran DNP LAB BLOOD ORDERABLES Final Result [facility] One [facility] [place] [address] * Infection Prevention Blade auris PCR, surveillance Axilla/Groin (02/03/2025 6:26 PM CDT) Blade auris DNA Not Detected Not Detected [facility] Comment: Interpretive Data Testing performed by [facility] Disease [facility] using the Rich chioma 6800 Blade auris assay. This assay detects DNA from Blade auris using Real-Time PCR. This assay is laboratory developed and is not cleared by the [place] Food and Drug Administration. The performance characteristics have been verified by the [facility] Disease [facility]. Axilla/Groin 02/03/2025 6:26 PM CDT 02/03/2025 6:37 PM CDT Narrative [facility] - 02/04/2025 1:17 PM CDT Order placed by [facility] due to ring surveillance. Instant Order Generic Provider LAB MICROBIOLOGY - GENERAL ORDERABLES Final Result CERNER [facility] One [facility] Department [place] [address] [facility] * XR Chest PA Lateral 2 Views (02/03/2025 10:47 AM CDT) Anatomical Region Laterality Modality Body, Chest N/A Computed Radiogr aphy 02/03/2025 11:1 6 AM CDT Impressions 02/03/2025 1:02 PM CDT The current study is compared with the prior radiograph dated 01/23/2025. Patient is status post mitral valve repair with median sternotomy wires in unchanged position. Right peripherally inserted central catheter tip overlies the superior vena cava. The cardiac mediastinal silhouette is unchanged. There is mild bibasilar atelectasis that is unchanged. Blunting of the bilateral costophrenic angles likely represents small stable pleural effusions. No pneumothorax. Dictated by: Canelo Luther M.D. The radiology attending physician has personally reviewed this study, and had reviewed and/or edited this written report and agrees with it. Electronically signed by: Oscar Hazel M.D. Narrative 02/03/2025 1:02 PM CDT EXAMINATION: 2 view chest radiograph Procedure Note Oscar Hazel MD - 02/03/2025 EXAMINATION: 2 view chest radiograph IMPRESSION: The current study is compared with the prior radiograph dated 01/23/2025. Patient is status post mitral valve repair with median sternotomy wires in unchanged position. Right peripherally inserted central catheter tip overlies the superior vena cava. The cardiac mediastinal silhouette is unchanged. There is mild bibasilar atelectasis that is unchanged. Blunting of the bilateral costophrenic angles likely represents small stable pleural effusions. No pneumothorax. Dictated by: Canelo Luther M.D. The radiology attending physician has personally reviewed this study, and had reviewed and/or edited this written report and agrees with it. Electronically signed by: Oscar Hazel M.D. Mika M. Ritchie [employer] SERVIC[employer] IMG XR PROCEDURES Final Res ult * (ABNORMAL) eGFR (02/02/2025 9:28 PM CDT) Pathologist [facility] [place] eGFR 44(L) >=60 mL/min/1. 73 m2 Comment: Interpretive Data Reference Interval Normal >/= 90 mL/min/1.73m2 Mildly decreased* 60 - 89 mL/min/1.73m2 Mildly to moderately decreased 45 - 59 mL/min/1.73m2 Moderately to severely decreased 30 - 44 mL/min/1.73m2 Severely decreased 15 - 29 mL/min/1.73m2 Kidney Failure < 15 mL/min/1.73m2 *Relative to young adult level Estimated glomerular filtration rate is determined by the 2020 CKD-EPI equation recommended by the National Kidney Foundation (A Unifying Approach to GFR Estimation: Recommendations of the NKF-ASK Task Force on Reassessing the Inclusion of Race in Diagnosing Kidney Disease, JASN 2020). The CKD-EPI equation should not be used for patients with unstable renal function and has not been validated in children and those over 70. Current interpretive data was last reviewed 2021. Blood 02/02/2025 9:28 PM CDT 02/02/2025 10:18 PM CDT Brenna Chavez MD LAB BLOOD ORDERABLES Final Resul t [facility] One [facility] Department [place] [address] * (ABNORMAL) Differential, auto (02/02/2025 9:28 PM CDT) Pathologist [facility] [place] Neutrophil abs 3.70 1.50 - 6.50 K/cumm Imm gran abs 0.04 0.00 - 0.10 K/cumm [facility] Lymphocyte abs 0.73(L) 0.80 - 3.30 K/cumm [facility] Monocyte abs 0.96(H) 0.20 - 0.80 K/cumm [facility] Eosinophil abs 0.23 0.00 - 0.50 K/cumm [facility] Basophil abs 0.02 0.00 - 0.10 K/cumm [facility] Neutrophil pct 65.1 % [facility] Comment: Interpretive Data Percent cell count reference ranges are not reported, since discordance with absolute values may lead to misinterpretation of CBC data. Current Interpretive Data was last revised on 2017. Imm gran pct 0.7 % [facility] Comment: Interpretive Data Percent cell count reference ranges are not reported, since discordance with absolute values may lead to misinterpretation of CBC data. Current Interpretive Data was last revised on 2017. Lymphocyte pct 12.9 % [facility] Comment: Interpretive Data Percent cell count reference ranges are not reported, since discordance with absolute values may lead to misinterpretation of CBC data. Current Interpretive Data was last revised on 2017. Monocyte pct 16.9 % [facility] Comment: Interpretive Data Percent cell count reference ranges are not reported, since discordance with absolute values may lead to misinterpretation of CBC data. Current Interpretive Data was last revised on 2017. Eosinophil pct 4.0 % [facility] Comment: Interpretive Data Percent cell count reference ranges are not reported, since discordance with absolute values may lead to misinterpretation of CBC data. Current Interpretive Data was last revised on 2017. Basophil pct 0.4 % [facility] Comment: Interpretive Data Percent cell count reference ranges are not reported, since discordance with absolute values may lead to misinterpretation of CBC data. Current Interpretive Data was last revised on 2017. Blood 02/02/2025 9:28 PM CDT 02/02/2025 10:12 PM CDT us Brenna Chavez MD LAB BLOOD ORDERABLES Final Resul t [facility] One [facility] Department [place] [address] * (ABNORMAL) CBC without differential (02/02/2025 9:28 PM CDT) WBC 5.31 3.80 - 9.90 K/cumm Hgb 7.9(L) 11.9 - 15.5 g/dL [facility] Hct 23.1(L) 35.6 - 45.5 % [facility] Plt 243 150 - 400 K/cumm [facility] MPV 9.1 9.1 - 12.3 fL [facility] RBC 2.55(L) 3.90 - 5.20 M/cumm [facility] MCV 90.6 81.3 - 96.4 fL [facility] MCH 31.0 27.1 - 33.3 pg [facility] MCHC 34.2 32.3 - 35.7 g/dL [facility] RDW CV 17.1(H) 11.1 - 14.9 % [facility] RDW SD 56.8(H) 35.7 - 48.1 fL [facility] NRBC abs 0.00 0.00 - 0.01 K/cumm [facility] Blood 02/02/2025 9:28 PM CDT 02/02/2025 10:09 PM CDT Charissa Beltran [facility] LAB BLOOD ORDERABLES Final Result Performing Organization Address City/[facility] Co de Phone Number [facility] [employer] [place] [address] * Type and screen (02/02/2025 9:28 PM CDT) Daly, indirect Negative ABO Rh O Negative [facility] Blood 02/02/2025 9:28 PM CDT 02/02/2025 10:14 PM CDT Narrative [facility] - 02/02/2025 11:16 PM CDT Has the patient had Daratumumab or Isatuximab in the past 6 months?->Unknown Charissa Beltran [facility] LAB BLOOD BANK TEST O RDERABLES Final Result Performing Organization Address City/[facility]/ZIP Co de Phone Number [facility] [place] [employer] [place] [address] * (ABNORMAL) Phosphorus (02/02/2025 9:28 PM CDT) [facility] Phosphorus, pl 1.7(L) 2.3 - 4.5 mg/dL Blood 02/02/2025 9:28 PM CDT 02/02/2025 10:13 PM CDT Charissa Beltran [facility] LAB BLOOD ORDERABLES Final Result Performing Organization Address City/[facility]/ZIP Co de Phone Number [facility] Department [place] [address] * Magnesium (02/02/2025 9:28 PM CDT) [facility] Magnesium 1.9 1.4 - 2.5 mg/dL Blood 02/02/2025 9:28 PM CDT 02/02/2025 10:13 PM CDT Charissa Beltran [facility] LAB BLOOD ORDERABLES Final Result Performing Organization Address City/[facility] Co de Phone Number [facility] [place] [address] * (ABNORMAL) Comprehensive metabolic panel (02/02/2025 9:28 PM CDT) [facility] Sodium 131(L) 135 - 145 mmol/L Potassium, pl 3.9 3.3 - 4.9 mmol/L [facility] Chloride 98 97 - 110 mmol/L [facility] CO2 24 22 - 32 mmol/L [facility] Anion gap 9 2 - 15 mmol/L [facility] BUN 13 6 - 25 mg/dL [facility] Creatinine 1.25(H) 0.60 - 1.10 mg/dL [facility] Glucose 105 70 - 199 mg/dL [facility] Comment: Interpretive Data Fasting glucose >/= 126 mg/dl is diagnostic for diabetes. Fasting is defined as no caloric intake for at least 8 hours. Fasting glucose between 100 mg/dl to 125 mg/dl is diagnostic of prediabetes. In a patient with classic symptoms of hyperglycemia or hyperglycemic crisis, a random glucose >/= 200 mg/dl is diagnostic for diabetes. In the absence of unequivocal hyperglycemia, results should be confirmed by repeat testing. The classification and Diagnosis of Diabetes Diabetes Care 202; 46: S19-S40. Current interpretive data was last revised 2022. Calcium 8.5 8.5 - 10.3 mg/dL [facility] Bilirubin, total 0.2 0.1 - 1.2 mg/dL [facility] Protein, pl 6.5 6.5 - 8.5 g/dL [facility] Albumin 3.5 3.5 - 5.0 g/dL [facility] Alk phos 142(H) 40 - 130 Units/L [facility] ALT 27 7 - 45 Units/L [facility] AST 32 10 - 45 Units/L [facility] Blood 02/02/2025 9:28 PM CDT 02/02/2025 10:13 PM CDT us Brenna Chavez MD LAB BLOOD ORDERABLES Final Resul t [facility] One [facility] [place] [address] * (ABNORMAL) eGFR (02/01/2025 8:46 PM CDT) eGFR 39(L) >=60 mL/min/1. 73 m2 Comment: Interpretive Data Reference Interval Normal >/= 90 mL/min/1.73m2 Mildly decreased* 60 - 89 mL/min/1.73m2 Mildly to moderately decreased 45 - 59 mL/min/1.73m2 Moderately to severely decreased 30 - 44 mL/min/1.73m2 Severely decreased 15 - 29 mL/min/1.73m2 Kidney Failure < 15 mL/min/1.73m2 *Relative to young adult level Estimated glomerular filtration rate is determined by the 2020 CKD-EPI equation recommended by the National Kidney Foundation (A Unifying Approach to GFR Estimation: Recommendations of the NKF-ASK Task Force on Reassessing the Inclusion of Race in Diagnosing Kidney Disease, JASN 2020). The CKD-EPI equation should not be used for patients with unstable renal function and has not been validated in children and those over 70. Current interpretive data was last reviewed 2021. Blood 02/01/2025 8:46 PM CDT 02/01/2025 9:37 PM CDT Charissa Beltran [facility] LAB BLOOD ORDERABLES Final Result Performing Organization Address City/[facility]/ZIP Co de Phone Number [facility] [place] [address] * (ABNORMAL) CBC without differential (02/01/2025 8:46 PM CDT) Pathologist [facility] [place] WBC 5.74 3.80 - 9.90 K/cumm Hgb 7.8(L) 11.9 - 15.5 g/dL [facility] Hct 23.4(L) 35.6 - 45.5 % [facility] Plt 271 150 - 400 K/cumm [facility] MPV 9.2 9.1 - 12.3 fL [facility] RBC 2.58(L) 3.90 - 5.20 M/cumm [facility] MCV 90.7 81.3 - 96.4 fL [facility] MCH 30.2 27.1 - 33.3 pg [facility] MCHC 33.3 32.3 - 35.7 g/dL [facility] RDW CV 17.1(H) 11.1 - 14.9 % [facility] RDW SD 55.7(H) 35.7 - 48.1 fL [facility] NRBC abs 0.00 0.00 - 0.01 K/cumm [facility] Blood 02/01/2025 8:46 PM CDT 02/01/2025 9:37 PM CDT Charissa Beltran [facility] LAB BLOOD ORDERABLES Final Result Performing Organization Address City/[facility]/ZIP Co de Phone Number [facility] [place] [place] [address] * (ABNORMAL) Phosphorus (02/01/2025 8:46 PM CDT) [facility] Phosphorus, pl 1.9(L) 2.3 - 4.5 mg/dL Blood 02/01/2025 8:46 PM CDT 02/01/2025 9:37 PM CDT Charissa Beltran [facility] LAB BLOOD ORDERABLES Final Result Performing Organization Address City/[facility]/ZIP Co de Phone Number [facility] Department [place] [address] * Magnesium (02/01/2025 8:46 PM CDT) [facility] Magnesium 2.0 1.4 - 2.5 mg/dL Blood 02/01/2025 8:46 PM CDT 02/01/2025 9:37 PM CDT Charissa Beltran [facility] LAB BLOOD ORDERABLES Final Result Performing Organization Address City/[facility] Co de Phone Number [facility] [place] [address] * (ABNORMAL) Basic metabolic panel (02/01/2025 8:46 PM CDT) [facility] Sodium 132(L) 135 - 145 mmol/L Potassium, pl 3.6 3.3 - 4.9 mmol/L [facility] Chloride 96(L) 97 - 110 mmol/L [facility] CO2 24 22 - 32 mmol/L [facility] Anion gap 12 2 - 15 mmol/L [facility] BUN 16 6 - 25 mg/dL [facility] Creatinine 1.39(H) 0.60 - 1.10 mg/dL [facility] Glucose 135 70 - 199 mg/dL [facility] Comment: Interpretive Data Fasting glucose >/= 126 mg/dl is diagnostic for diabetes. Fasting is defined as no caloric intake for at least 8 hours. Fasting glucose between 100 mg/dl to 125 mg/dl is diagnostic of prediabetes. In a patient with classic symptoms of hyperglycemia or hyperglycemic crisis, a random glucose >/= 200 mg/dl is diagnostic for diabetes. In the absence of unequivocal hyperglycemia, results should be confirmed by repeat testing. The classification and Diagnosis of Diabetes Diabetes Care 2021; 46: S19-S40. Current interpretive data was last revised 2022. Calcium 8.2(L) 8.5 - 10.3 mg/dL [facility] Blood 02/01/2025 8:46 PM CDT 02/01/2025 9:37 PM CDT Charissa Beltran [facility] LAB BLOOD ORDERABLES Final Result [facility] [place] [address] * (ABNORMAL) eGFR (02/01/2025 5:57 PM CDT) eGFR 39(L) >=60 mL/min/1. 73 m2 Comment: Interpretive Data Reference Interval Normal >/= 90 mL/min/1.73m2 Mildly decreased* 60 - 89 mL/min/1.73m2 Mildly to moderately decreased 45 - 59 mL/min/1.73m2 Moderately to severely decreased 30 - 44 mL/min/1.73m2 Severely decreased 15 - 29 mL/min/1.73m2 Kidney Failure < 15 mL/min/1.73m2 *Relative to young adult level Estimated glomerular filtration rate is determined by the 2020 CKD-EPI equation recommended by the National Kidney Foundation (A Unifying Approach to GFR Estimation: Recommendations of the NKF-ASK Task Force on Reassessing the Inclusion of Race in Diagnosing Kidney Disease, JASN 2020). The CKD-EPI equation should not be used for patients with unstable renal function and has not been validated in children and those over 70. Current interpretive data was last reviewed 2021. Blood 02/01/2025 5:57 PM CDT 02/01/2025 6:38 PM CDT Charissa Beltran [facility] LAB BLOOD ORDERABLES Final Result [facility] Department [place] [address] * (ABNORMAL) CBC without differential (02/01/2025 5:57 PM CDT) Pathologist [facility] [place] WBC 6.20 3.80 - 9.90 K/cumm Hgb 8.0(L) 11.9 - 15.5 g/dL [facility] Hct 23.7(L) 35.6 - 45.5 % [facility] Plt 285 150 - 400 K/cumm [facility] MPV 9.1 9.1 - 12.3 fL [facility] RBC 2.61(L) 3.90 - 5.20 M/cumm [facility] MCV 90.8 81.3 - 96.4 fL [facility] MCH 30.7 27.1 - 33.3 pg [facility] MCHC 33.8 32.3 - 35.7 g/dL [facility] RDW CV 16.8(H) 11.1 - 14.9 % [facility] RDW SD 55.3(H) 35.7 - 48.1 fL [facility] NRBC abs 0.00 0.00 - 0.01 K/cumm [facility] Blood 02/01/2025 5:57 PM CDT 02/01/2025 6:38 PM CDT Charissa Beltran [facility] LAB BLOOD ORDERABLES Final Result Performing Organization Address City/[facility]/ZIP Co de Phone Number [facility] Department [place] [address] * Phosphorus (02/01/2025 5:57 PM CDT) [facility] Phosphorus, pl 2.3 2.3 - 4.5 mg/dL Blood 02/01/2025 5:57 PM CDT 02/01/2025 6:38 PM CDT Charissa Beltran [facility] LAB BLOOD ORDERABLES Final Result [facility] One [facility] [place] [address] * Magnesium (02/01/2025 5:57 PM CDT) [facility] Magnesium 2.0 1.4 - 2.5 mg/dL Blood 02/01/2025 5:57 PM CDT 02/01/2025 6:38 PM CDT Charissa Bhavya Beltran [facility] LAB BLOOD ORDERABLES Final Result Performing Organization Address City/[facility] Co de Phone Number [facility] [place] [place] [address] * (ABNORMAL) Basic metabolic panel (02/01/2025 5:57 PM CDT) [facility] Sodium 130(L) 135 - 145 mmol/L Potassium, pl 3.7 3.3 - 4.9 mmol/L [facility] Chloride 93(L) 97 - 110 mmol/L [facility] CO2 24 22 - 32 mmol/L [facility] Anion gap 13 2 - 15 mmol/L [facility] BUN 16 6 - 25 mg/dL [facility] Creatinine 1.40(H) 0.60 - 1.10 mg/dL [facility] Glucose 96 70 - 199 mg/dL [facility] Comment: Interpretive Data Fasting glucose >/= 126 mg/dl is diagnostic for diabetes. Fasting is defined as no caloric intake for at least 8 hours. Fasting glucose between 100 mg/dl to 125 mg/dl is diagnostic of prediabetes. In a patient with classic symptoms of hyperglycemia or hyperglycemic crisis, a random glucose >/= 200 mg/dl is diagnostic for diabetes. In the absence of unequivocal hyperglycemia, results should be confirmed by repeat testing. The classification and Diagnosis of Diabetes Diabetes Care 202; 46: S19-S40. Current interpretive data was last revised 2022. Calcium 8.5 8.5 - 10.3 mg/dL [facility] Blood 02/01/2025 5:57 PM CDT 02/01/2025 6:38 PM CDT us Charissa Beltran DNP LAB BLOOD ORDERABLES Final Result Performing Organization Address City/[facility]/ZIP Co de Phone Number [facility] [place] [address] * ECG 12 lead (02/01/2025 6:39 AM CDT) Pathologist [facility] [place] Ventricular Rate EKG/Min 66 BPM [facility] Atrial Rate 66 BPM [facility] [place]-Interval (MSEC) 216 ms [facility] QRS-Interval (MSEC) 86 ms [facility] QT-Interval (MSEC) 398 ms [facility] QTc 417 ms [facility] R [place] 23 degrees [facility] T [place] 74 degrees [facility] Diagnosis Sinus rhythm with 1st degree A-V block Poor r wave progression associated with abnormal lead placement, obesity, pulmonary disease, anterior infarction. Abnormal ECG When compared with ECG of 30-JAN-2025 03:59, QT has shortened r wave progression is reduced without T changes Confirmed by GUSTAVO VIEYRA M.D ([id number]) on 02/02/2025 8:09:55 AM [facility] 02/01/2025 6:39 AM CDT 02/02/2025 8:09 AM CDT us Mary Alice Landeros [employer] SERVIC[employer] ECG ORDERABLES Final Resu lt Performing Organization Address City/[facility]/ZIP Co de Phone Number [facility] * (ABNORMAL) eGFR (01/31/2025 8:38 PM CDT) Pathologist [facility] [place] eGFR 46(L) >=60 mL/min/1. 73 m2 Comment: Interpretive Data Reference Interval Normal >/= 90 mL/min/1.73m2 Mildly decreased* 60 - 89 mL/min/1.73m2 Mildly to moderately decreased 45 - 59 mL/min/1.73m2 Moderately to severely decreased 30 - 44 mL/min/1.73m2 Severely decreased 15 - 29 mL/min/1.73m2 Kidney Failure < 15 mL/min/1.73m2 *Relative to young adult level Estimated glomerular filtration rate is determined by the 2020 CKD-EPI equation recommended by the National Kidney Foundation (A Unifying Approach to GFR Estimation: Recommendations of the NKF-ASK Task Force on Reassessing the Inclusion of Race in Diagnosing Kidney Disease, JASN 2020). The CKD-EPI equation should not be used for patients with unstable renal function and has not been validated in children and those over 70. Current interpretive data was last reviewed 2021. Blood 01/31/2025 8:38 PM CDT 01/31/2025 9:03 PM CDT us Brenna Chavez MD LAB BLOOD ORDERABLES Final Resul t [facility] One [facility] [place] [address] * (ABNORMAL) CBC without differential (01/31/2025 8:38 PM CDT) WBC 6.67 3.80 - 9.90 K/cumm Hgb 8.5(L) 11.9 - 15.5 g/dL [facility] Hct 25.6(L) 35.6 - 45.5 % [facility] Plt 292 150 - 400 K/cumm [facility] MPV 9.2 9.1 - 12.3 fL [facility] RBC 2.80(L) 3.90 - 5.20 M/cumm [facility] MCV 91.4 81.3 - 96.4 fL [facility] MCH 30.4 27.1 - 33.3 pg [facility] MCHC 33.2 32.3 - 35.7 g/dL [facility] RDW CV 17.1(H) 11.1 - 14.9 % [facility] RDW SD 56.8(H) 35.7 - 48.1 fL [facility] NRBC abs 0.00 0.00 - 0.01 K/cumm [facility] Blood 01/31/2025 8:38 PM CDT 01/31/2025 9:03 PM CDT Charissa Beltran DNP LAB BLOOD ORDERABLES Final Result Performing Organization Address City/[facility] Co de Phone Number [facility] [place], [place] [id number] * Phosphorus (01/31/2025 8:38 PM CDT) Phosphorus, pl 2.4 2.3 - 4.5 mg/dL Blood 01/31/2025 8:38 PM CDT 01/31/2025 8:55 PM CDT Sheila Canela [employer]IC[employer] LAB BLOOD ORDERABLES Final Result Performing Organization Address [facility] de Phone Number [facility] [place] [address] * Magnesium (01/31/2025 8:38 PM CDT) Pathologist [facility] [place] Magnesium 2.0 1.4 - 2.5 mg/dL Blood 01/31/2025 8:38 PM CDT 01/31/2025 8:55 PM CDT Sheila Canela [employer]OK[employer]OR [employer] SERVICER LAB BLOOD ORDERABLES Final Result Performing Organization Address [facility] Co de Phone Number [facility] Department [place] [address] * Creatine kinase (CK), total (01/31/2025 8:38 PM CDT) CK 48 30 - 200 Units/L Blood 01/31/2025 8:38 PM CDT 01/31/2025 8:55 PM CDT Brenna Chavez MD LAB BLOOD ORDERABLES Final Resul t Performing Organization Address City/[facility] Co de Phone Number [facility] Laboratories [place], [place] [id number] * (ABNORMAL) Basic metabolic panel (01/31/2025 8:38 PM CDT) Pathologist [facility] [place] Sodium 132(L) 135 - 145 mmol/L Potassium, pl 3.2(L) 3.3 - 4.9 mmol/L [facility] Chloride 96(L) 97 - 110 mmol/L [facility] CO2 23 22 - 32 mmol/L [facility] Anion gap 13 2 - 15 mmol/L [facility] BUN 14 6 - 25 mg/dL [facility] Creatinine 1.20(H) 0.60 - 1.10 mg/dL [facility] Glucose 128 70 - 199 mg/dL [facility] Comment: Interpretive Data Fasting glucose >/= 126 mg/dl is diagnostic for diabetes. Fasting is defined as no caloric intake for at least 8 hours. Fasting glucose between 100 mg/dl to 125 mg/dl is diagnostic of prediabetes. In a patient with classic symptoms of hyperglycemia or hyperglycemic crisis, a random glucose >/= 200 mg/dl is diagnostic for diabetes. In the absence of unequivocal hyperglycemia, results should be confirmed by repeat testing. The classification and Diagnosis of Diabetes Diabetes Care 202; 46: S19-S40. Current interpretive data was last revised 2022. Calcium 8.8 8.5 - 10.3 mg/dL [facility] Blood 01/31/2025 8:38 PM CDT 01/31/2025 8:55 PM CDT us Brenna Chavez MD LAB BLOOD ORDERABLES Final Resul t [facility] Department [place] [address] * (ABNORMAL) eGFR (01/30/2025 8:48 PM CDT) Pathologist [facility] [place] eGFR 43(L) >=60 mL/min/1. 73 m2 Comment: Interpretive Data Reference Interval Normal >/= 90 mL/min/1.73m2 Mildly decreased* 60 - 89 mL/min/1.73m2 Mildly to moderately decreased 45 - 59 mL/min/1.73m2 Moderately to severely decreased 30 - 44 mL/min/1.73m2 Severely decreased 15 - 29 mL/min/1.73m2 Kidney Failure < 15 mL/min/1.73m2 *Relative to young adult level Estimated glomerular filtration rate is determined by the 2020 CKD-EPI equation recommended by the National Kidney Foundation (A Unifying Approach to GFR Estimation: Recommendations of the NKF-ASK Task Force on Reassessing the Inclusion of Race in Diagnosing Kidney Disease, JASN 2020). The CKD-EPI equation should not be used for patients with unstable renal function and has not been validated in children and those over 70. Current interpretive data was last reviewed 2021. Blood 01/30/2025 8:48 PM CDT 01/30/2025 9:32 PM CDT [facility] LAB BLOOD ORDERABLES Final Result [facility] Department [place] [address] * (ABNORMAL) CBC without differential (01/30/2025 8:48 PM CDT) WBC 9.04 3.80 - 9.90 K/cumm Hgb 8.5(L) 11.9 - 15.5 g/dL [facility] Hct 25.6(L) 35.6 - 45.5 % [facility] Plt 332 150 - 400 K/cumm [facility] MPV 9.2 9.1 - 12.3 fL [facility] RBC 2.78(L) 3.90 - 5.20 M/cumm [facility] MCV 92.1 81.3 - 96.4 fL [facility] MCH 30.6 27.1 - 33.3 pg [facility] MCHC 33.2 32.3 - 35.7 g/dL [facility] RDW CV 17.1(H) 11.1 - 14.9 % [facility] RDW SD 57.1(H) 35.7 - 48.1 fL [facility] NRBC abs 0.00 0.00 - 0.01 K/cumm [facility] Blood 01/30/2025 8:48 PM CDT 01/30/2025 9:31 PM CDT [facility] LAB BLOOD ORDERABLES Final Result Performing Organization Address [facility] Co de Phone Number [facility] [place] [address] * Type and screen (01/30/2025 8:48 PM CDT) ABO Rh O Negative [place], indirect Negative [facility] Blood 01/30/2025 8:48 PM CDT 01/30/2025 10:31 PM CDT Narrative [facility] - 01/31/2025 12:01 AM CDT Has the patient had Daratumumab or Isatuximab in the past 6 months?->Unknown Charissa [facility] LAB BLOOD BANK TEST O RDERABLES Final Result Performing Organization Address [facility] [place] [address] * (ABNORMAL) Basic metabolic panel (01/30/2025 8:48 PM CDT) Sodium 135 135 - 145 mmol/L Potassium, pl 3.8 3.3 - 4.9 mmol/L [facility] Chloride 100 97 - 110 mmol/L [facility] CO2 26 22 - 32 mmol/L [facility] Anion gap 9 2 - 15 mmol/L [facility] BUN 12 6 - 25 mg/dL [facility] Creatinine 1.28(H) 0.60 - 1.10 mg/dL [facility] Glucose 100 70 - 199 mg/dL [facility] Comment: Interpretive Data Fasting glucose >/= 126 mg/dl is diagnostic for diabetes. Fasting is defined as no caloric intake for at least 8 hours. Fasting glucose between 100 mg/dl to 125 mg/dl is diagnostic of prediabetes. In a patient with classic symptoms of hyperglycemia or hyperglycemic crisis, a random glucose >/= 200 mg/dl is diagnostic for diabetes. In the absence of unequivocal hyperglycemia, results should be confirmed by repeat testing. The classification and Diagnosis of Diabetes Diabetes Care 2021; 46: S19-S40. Current interpretive data was last revised 2022. Calcium 9.4 8.5 - 10.3 mg/dL [facility] Blood 01/30/2025 8:48 PM CDT 01/30/2025 9:32 PM CDT us Charissa Beltran DNP LAB BLOOD ORDERABLES Final Result Performing Organization Address City/[facility]/ZIP Co de Phone Number [facility] Department [place] [address] * ECG 12 lead (01/30/2025 3:59 AM CDT) Pathologist [facility] [place] Ventricular Rate EKG/Min 68 BPM [facility] Atrial Rate 68 BPM [facility] OH-Interval (MSEC) 210 ms [facility] QRS-Interval (MSEC) 80 ms [facility] QT-Interval (MSEC) 446 ms [facility] QTc 474 ms [facility] R [place] 12 degrees [facility] T [place] 65 degrees [facility] Diagnosis Sinus rhythm with 1st degree A-V block Nonspecific T wave abnormality Otherwise normal ECG When compared with ECG of 29-JAN-2025 13:47, (unconfirmed) QRS axis Shifted right Minimal criteria for Anterior infarct are no longer Present T wave inversion no longer evident in Anterior leads Confirmed by XIOMARA GARCIA M.D ([id number]) on 01/31/2025 1:25:41 PM [facility] 01/30/2025 3:59 AM CDT 01/31/2025 1:25 PM CDT us Mary Alice Landeros [employer]OR [employer] SERVICER ECG ORDERABLES Final Resu lt [facility] * (ABNORMAL) eGFR (01/29/2025 5:07 PM CDT) eGFR 48(L) >=60 mL/min/1. 73 m2 Comment: Interpretive Data Reference Interval Normal >/= 90 mL/min/1.73m2 Mildly decreased* 60 - 89 mL/min/1.73m2 Mildly to moderately decreased 45 - 59 mL/min/1.73m2 Moderately to severely decreased 30 - 44 mL/min/1.73m2 Severely decreased 15 - 29 mL/min/1.73m2 Kidney Failure < 15 mL/min/1.73m2 *Relative to young adult level Estimated glomerular filtration rate is determined by the 2020 CKD-EPI equation recommended by the National Kidney Foundation (A Unifying Approach to GFR Estimation: Recommendations of the NKF-ASK Task Force on Reassessing the Inclusion of Race in Diagnosing Kidney Disease, JASN 2020). The CKD-EPI equation should not be used for patients with unstable renal function and has not been validated in children and those over 70. Current interpretive data was last reviewed 2021. Blood 01/29/2025 5:07 PM CDT 01/29/2025 5:35 PM CDT [facility] LAB BLOOD ORDERABLES Final Result [facility] Department [place] [address] * (ABNORMAL) Protime-INR (01/29/2025 5:07 PM CDT) PT 14.8(H) 10.2 - 13.5 sec INR 1.32(H) 0.90 - 1.20 [facility] Comment: Interpretive data Oral anticoagulant therapeutic ranges: Venous thromboembolism prophylaxis or treatment: 2.0-3.0 CARDIOLOGY Standard range: 2.0-3.0 High-intensity range: 2.5-3.5 Refer to indication-specific guidelines for appropriate target ranges for prosthetic heart valve replacement. Current interpretive data was last revised on 2019. Blood 01/29/2025 5:07 PM CDT 01/29/2025 5:39 PM CDT Narrative [facility] - 01/29/2025 5:58 PM CDT Baseline prior to apixaban initiation. Chely Hood [employer]OK[employer] E[employer] SERVICER LAB BLOOD ORDERABLES F inal Result Performing Organization Address [facility] Co de Phone Number [facility] Department [place] [address] * (ABNORMAL) CBC without differential (01/29/2025 5:07 PM CDT) WBC 10.77(H) 3.80 - 9.90 K/cumm Hgb 7.9(L) 11.9 - 15.5 g/dL [facility] Hct 24.7(L) 35.6 - 45.5 % [facility] Plt 311 150 - 400 K/cumm [facility] MPV 9.3 9.1 - 12.3 fL [facility] RBC 2.65(L) 3.90 - 5.20 M/cumm [facility] MCV 93.2 81.3 - 96.4 fL [facility] MCH 29.8 27.1 - 33.3 pg [facility] MCHC 32.0(L) 32.3 - 35.7 g/dL [facility] RDW CV 16.9(H) 11.1 - 14.9 % [facility] RDW SD 56.0(H) 35.7 - 48.1 fL [facility] NRBC abs 0.00 0.00 - 0.01 K/cumm [facility] Blood 01/29/2025 5:07 PM CDT 01/29/2025 5:35 PM CDT us Charissa Beltran DNP LAB BLOOD ORDERABLES Final Result Performing Organization Address City/[facility]/ZIP Co de Phone Number [facility] Department of [employer] [place], [place] [id number] * Hepatic function panel (01/29/2025 5:07 PM CDT) Bilirubin, total 0.2 0.1 - 1.2 mg/dL Bilirubin, direct <0.2 0.1 - 0.3 mg/dL [facility] Protein, pl 6.5 6.5 - 8.5 g/dL [facility] Albumin 3.7 3.5 - 5.0 g/dL [facility] Alk phos 121 40 - 130 Units/L [facility] ALT 35 7 - 45 Units/L [facility] AST 33 10 - 45 Units/L [facility] Blood 01/29/2025 5:07 PM CDT 01/29/2025 5:35 PM CDT us Brenna Chavez MD LAB BLOOD ORDERABLES Final Resul t [facility] Department [place] [address] * (ABNORMAL) Basic metabolic panel (01/29/2025 5:07 PM CDT) Pathologist [facility] [place] Sodium 138 135 - 145 mmol/L Potassium, pl 3.8 3.3 - 4.9 mmol/L [facility] Chloride 101 97 - 110 mmol/L [facility] CO2 26 22 - 32 mmol/L [facility] Anion gap 11 2 - 15 mmol/L [facility] BUN 10 6 - 25 mg/dL [facility] Creatinine 1.16(H) 0.60 - 1.10 mg/dL [facility] Glucose 73 70 - 199 mg/dL [facility] Comment: Interpretive Data Fasting glucose >/= 126 mg/dl is diagnostic for diabetes. Fasting is defined as no caloric intake for at least 8 hours. Fasting glucose between 100 mg/dl to 125 mg/dl is diagnostic of prediabetes. In a patient with classic symptoms of hyperglycemia or hyperglycemic crisis, a random glucose >/= 200 mg/dl is diagnostic for diabetes. In the absence of unequivocal hyperglycemia, results should be confirmed by repeat testing. The classification and Diagnosis of Diabetes Diabetes Care 202; 46: S19-S40. Current interpretive data was last revised 2022. Calcium 8.8 8.5 - 10.3 mg/dL [facility] Blood 01/29/2025 5:07 PM CDT 01/29/2025 5:35 PM CDT Charissa Beltran DNP LAB BLOOD ORDERABLES Final Result Performing Organization Address City/[facility]/ZIP Co de Phone Number [facility] Department [place] [address] * ECG 12 lead (01/29/2025 1:47 PM CDT) Pathologist [facility] [place] Ventricular Rate EKG/Min 65 BPM [facility] Atrial Rate 65 BPM [facility] OH-Interval (MSEC) 194 ms [facility] QRS-Interval (MSEC) 80 ms [facility] QT-Interval (MSEC) 452 ms [facility] QTc 470 ms [facility] R [place] -37 degrees [facility] T [place] 149 degrees [facility] Diagnosis Normal sinus rhythm Left axis deviation Low voltage QRS Cannot rule out Anterior infarct (cited on or before 27-JAN-2025) ST & T wave abnormality, consider lateral ischemia Abnormal ECG When compared with ECG of 27-JAN-2025 03:45, Sinus rhythm has replaced Atrial fibrillation QRS axis Shifted left Serial changes of Anterior infarct Present Confirmed by XIOMARA GARCIA M.D ([id number]) on 01/31/2025 1:25:25 PM [facility] 01/29/2025 1:47 PM CDT 01/31/2025 1:25 PM CDT us Mary Alice Landeros [employer] SERVIC[employer] ECG ORDERABLES Final Resu lt [facility] * (ABNORMAL) eGFR (01/28/2025 9:06 PM CDT) Pathologist [facility] [place] eGFR 47(L) >=60 mL/min/1. 73 m2 Comment: Interpretive Data Reference Interval Normal >/= 90 mL/min/1.73m2 Mildly decreased* 60 - 89 mL/min/1.73m2 Mildly to moderately decreased 45 - 59 mL/min/1.73m2 Moderately to severely decreased 30 - 44 mL/min/1.73m2 Severely decreased 15 - 29 mL/min/1.73m2 Kidney Failure < 15 mL/min/1.73m2 *Relative to young adult level Estimated glomerular filtration rate is determined by the 2020 CKD-EPI equation recommended by the National Kidney Foundation (A Unifying Approach to GFR Estimation: Recommendations of the NKF-ASK Task Force on Reassessing the Inclusion of Race in Diagnosing Kidney Disease, JASN 202). The CKD-EPI equation should not be used for patients with unstable renal function and has not been validated in children and those over 70. Current interpretive data was last reviewed 2021. Blood 01/28/2025 9:06 PM CDT 01/28/2025 9:46 PM CDT [facility] LAB BLOOD ORDERABLES Final Result [facility] Department [place] [address] * (ABNORMAL) CBC without differential (01/28/2025 9:06 PM CDT) WBC 10.85(H) 3.80 - 9.90 K/cumm Hgb 8.0(L) 11.9 - 15.5 g/dL [facility] Hct 24.1(L) 35.6 - 45.5 % [facility] Plt 282 150 - 400 K/cumm [facility] MPV 9.7 9.1 - 12.3 fL [facility] RBC 2.67(L) 3.90 - 5.20 M/cumm [facility] MCV 90.3 81.3 - 96.4 fL [facility] MCH 30.0 27.1 - 33.3 pg [facility] MCHC 33.2 32.3 - 35.7 g/dL [facility] RDW CV 17.0(H) 11.1 - 14.9 % [facility] RDW SD 54.7(H) 35.7 - 48.1 fL [facility] NRBC abs 0.00 0.00 - 0.01 K/cumm [facility] Blood 01/28/2025 9:06 PM CDT 01/28/2025 9:46 PM CDT [facility] LAB BLOOD ORDERABLES Final Result [facility] Department [place] [address] * (ABNORMAL) Basic metabolic panel (01/28/2025 9:06 PM CDT) [facility] Sodium 138 135 - 145 mmol/L Potassium, pl 4.1 3.3 - 4.9 mmol/L [facility] Chloride 102 97 - 110 mmol/L [facility] CO2 26 22 - 32 mmol/L [facility] Anion gap 10 2 - 15 mmol/L [facility] BUN 13 6 - 25 mg/dL [facility] Creatinine 1.19(H) 0.60 - 1.10 mg/dL [facility] Glucose 99 70 - 199 mg/dL [facility] Comment: Interpretive Data Fasting glucose >/= 126 mg/dl is diagnostic for diabetes. Fasting is defined as no caloric intake for at least 8 hours. Fasting glucose between 100 mg/dl to 125 mg/dl is diagnostic of prediabetes. In a patient with classic symptoms of hyperglycemia or hyperglycemic crisis, a random glucose >/= 200 mg/dl is diagnostic for diabetes. In the absence of unequivocal hyperglycemia, results should be confirmed by repeat testing. The classification and Diagnosis of Diabetes Diabetes Care 2021; 46: S19-S40. Current interpretive data was last revised 2022. Calcium 9.3 8.5 - 10.3 mg/dL [facility] Blood 01/28/2025 9:06 PM CDT 01/28/2025 9:46 PM CDT [facility] LAB BLOOD ORDERABLES Final Result Performing Organization Address [facility]/ZIP Co de Phone Number [facility] Department [place] [address] * (ABNORMAL) eGFR (01/27/2025 9:57 PM CDT) [facility] eGFR 50(L) >=60 mL/min/1. 73 m2 Comment: Interpretive Data Reference Interval Normal >/= 90 mL/min/1.73m2 Mildly decreased* 60 - 89 mL/min/1.73m2 Mildly to moderately decreased 45 - 59 mL/min/1.73m2 Moderately to severely decreased 30 - 44 mL/min/1.73m2 Severely decreased 15 - 29 mL/min/1.73m2 Kidney Failure < 15 mL/min/1.73m2 *Relative to young adult level Estimated glomerular filtration rate is determined by the 2020 CKD-EPI equation recommended by the National Kidney Foundation (A Unifying Approach to GFR Estimation: Recommendations of the NKF-ASK Task Force on Reassessing the Inclusion of Race in Diagnosing Kidney Disease, JASN 2020). The CKD-EPI equation should not be used for patients with unstable renal function and has not been validated in children and those over 70. Current interpretive data was last reviewed 2021. Blood 01/27/2025 9:57 PM CDT 01/27/2025 10:59 PM CDT [facility] LAB BLOOD ORDERABLES Final Result [facility] Department [place] [address] * (ABNORMAL) CBC without differential (01/27/2025 9:57 PM CDT) [facility] WBC 10.06(H) 3.80 - 9.90 K/cumm Hgb 8.5(L) 11.9 - 15.5 g/dL [facility] Hct 25.4(L) 35.6 - 45.5 % [facility] Plt 283 150 - 400 K/cumm [facility] MPV 10.1 9.1 - 12.3 fL [facility] RBC 2.84(L) 3.90 - 5.20 M/cumm [facility] MCV 89.4 81.3 - 96.4 fL [facility] MCH 29.9 27.1 - 33.3 pg [facility] MCHC 33.5 32.3 - 35.7 g/dL [facility] RDW CV 16.4(H) 11.1 - 14.9 % [facility] RDW SD 53.1(H) 35.7 - 48.1 fL [facility] NRBC abs 0.00 0.00 - 0.01 K/cumm [facility] Blood 01/27/2025 9:57 PM CDT 01/27/2025 11:01 PM CDT [facility] LAB BLOOD ORDERABLES Final Result [facility] Department [place] [address] * (ABNORMAL) Basic metabolic panel (01/27/2025 9:57 PM CDT) Sodium 136 135 - 145 mmol/L Potassium, pl 4.2 3.3 - 4.9 mmol/L [facility] Chloride 101 97 - 110 mmol/L [facility] CO2 27 22 - 32 mmol/L [facility] Anion gap 8 2 - 15 mmol/L [facility] BUN 11 6 - 25 mg/dL [facility] Creatinine 1.12(H) 0.60 - 1.10 mg/dL [facility] Glucose 107 70 - 199 mg/dL [facility] Comment: Interpretive Data Fasting glucose >/= 126 mg/dl is diagnostic for diabetes. Fasting is defined as no caloric intake for at least 8 hours. Fasting glucose between 100 mg/dl to 125 mg/dl is diagnostic of prediabetes. In a patient with classic symptoms of hyperglycemia or hyperglycemic crisis, a random glucose >/= 200 mg/dl is diagnostic for diabetes. In the absence of unequivocal hyperglycemia, results should be confirmed by repeat testing. The classification and Diagnosis of Diabetes Diabetes Care 2021; 46: S19-S40. Current interpretive data was last revised 2022. Calcium 9.4 8.5 - 10.3 mg/dL [facility] Blood 01/27/2025 9:57 PM CDT 01/27/2025 10:59 PM CDT us Charissa Beltran DNP LAB BLOOD ORDERABLES Final Result [facility] Department [place] [address] * (ABNORMAL) eGFR (01/27/2025 12:09 PM CDT) eGFR 54(L) >=60 mL/min/1. 73 m2 Comment: Interpretive Data Reference Interval Normal >/= 90 mL/min/1.73m2 Mildly decreased* 60 - 89 mL/min/1.73m2 Mildly to moderately decreased 45 - 59 mL/min/1.73m2 Moderately to severely decreased 30 - 44 mL/min/1.73m2 Severely decreased 15 - 29 mL/min/1.73m2 Kidney Failure < 15 mL/min/1.73m2 *Relative to young adult level Estimated glomerular filtration rate is determined by the 2020 CKD-EPI equation recommended by the National Kidney Foundation (A Unifying Approach to GFR Estimation: Recommendations of the NKF-ASK Task Force on Reassessing the Inclusion of Race in Diagnosing Kidney Disease, JASN 2020). The CKD-EPI equation should not be used for patients with unstable renal function and has not been validated in children and those over 70. Current interpretive data was last reviewed 2021. Blood 01/27/2025 12:0 9 PM CDT 01/27/2025 12:38 PM CDT us Shirley Baltazar [employer] SERVIC[employer] LAB BLOOD ORDERABLES Final Result [facility] Department [place] [address] * (ABNORMAL) CBC without differential (01/27/2025 12:09 PM CDT) WBC 8.45 3.80 - 9.90 K/cumm Hgb 8.0(L) 11.9 - 15.5 g/dL [facility] Hct 23.3(L) 35.6 - 45.5 % [facility] Plt 221 150 - 400 K/cumm [facility] MPV 10.2 9.1 - 12.3 fL [facility] RBC 2.64(L) 3.90 - 5.20 M/cumm [facility] MCV 88.3 81.3 - 96.4 fL [facility] MCH 30.3 27.1 - 33.3 pg [facility] MCHC 34.3 32.3 - 35.7 g/dL [facility] RDW CV 16.4(H) 11.1 - 14.9 % [facility] RDW SD 51.9(H) 35.7 - 48.1 fL [facility] NRBC abs 0.00 0.00 - 0.01 K/cumm [facility] Blood 01/27/2025 12:0 9 PM CDT 01/27/2025 12:25 PM CDT Shirley Baltazar NP LAB BLOOD ORDERABLES Final Result [facility] [place] [address] * (ABNORMAL) Basic metabolic panel (01/27/2025 12:09 PM CDT) Sodium 130(L) 135 - 145 mmol/L Potassium, pl 3.7 3.3 - 4.9 mmol/L [facility] Chloride 95(L) 97 - 110 mmol/L [facility] CO2 24 22 - 32 mmol/L [facility] Anion gap 11 2 - 15 mmol/L [facility] BUN 8 6 - 25 mg/dL [facility] Creatinine 1.06 0.60 - 1.10 mg/dL [facility] Glucose 108 70 - 199 mg/dL [facility] Comment: Interpretive Data Fasting glucose >/= 126 mg/dl is diagnostic for diabetes. Fasting is defined as no caloric intake for at least 8 hours. Fasting glucose between 100 mg/dl to 125 mg/dl is diagnostic of prediabetes. In a patient with classic symptoms of hyperglycemia or hyperglycemic crisis, a random glucose >/= 200 mg/dl is diagnostic for diabetes. In the absence of unequivocal hyperglycemia, results should be confirmed by repeat testing. The classification and Diagnosis of Diabetes Diabetes Care 202; 46: S19-S40. Current interpretive data was last revised 2022. Calcium 8.8 8.5 - 10.3 mg/dL [facility] Blood 01/27/2025 12:0 9 PM CDT 01/27/2025 12:25 PM CDT us Shirley Baltazar NP LAB BLOOD ORDERABLES Final Result [facility] Department [place] [address] * (ABNORMAL) Differential, auto (01/27/2025 6:22 AM CDT) Neutrophil abs 5.04 1.50 - 6.50 K/cumm Imm gran abs 0.05 0.00 - 0.10 K/cumm [facility] Lymphocyte abs 0.61(L) 0.80 - 3.30 K/cumm [facility] Monocyte abs 0.86(H) 0.20 - 0.80 K/cumm [facility] Eosinophil abs 0.10 0.00 - 0.50 K/cumm [facility] Basophil abs 0.02 0.00 - 0.10 K/cumm [facility] Neutrophil pct 75.5 % [facility] Comment: Interpretive Data Percent cell count reference ranges are not reported, since discordance with absolute values may lead to misinterpretation of CBC data. Current Interpretive Data was last revised on 2017. Imm gran pct 0.7 % [facility] Comment: Interpretive Data Percent cell count reference ranges are not reported, since discordance with absolute values may lead to misinterpretation of CBC data. Current Interpretive Data was last revised on 2017. Lymphocyte pct 9.1 % [facility] Comment: Interpretive Data Percent cell count reference ranges are not reported, since discordance with absolute values may lead to misinterpretation of CBC data. Current Interpretive Data was last revised on 2017. Monocyte pct 12.9 % [facility] Comment: Interpretive Data Percent cell count reference ranges are not reported, since discordance with absolute values may lead to misinterpretation of CBC data. Current Interpretive Data was last revised on 2017. Eosinophil pct 1.5 % [facility] Comment: Interpretive Data Percent cell count reference ranges are not reported, since discordance with absolute values may lead to misinterpretation of CBC data. Current Interpretive Data was last revised on 2017. Basophil pct 0.3 % [facility] Comment: Interpretive Data Percent cell count reference ranges are not reported, since discordance with absolute values may lead to misinterpretation of CBC data. Current Interpretive Data was last revised on 2017. Blood 01/27/2025 6:22 AM CDT 01/27/2025 7:28 AM CDT Sheila Canela [employer] LAB BLOOD ORDERABLES Final Result [facility] Department [place] [address] * (ABNORMAL) CBC with auto differential (01/27/2025 6:22 AM CDT) WBC 6.68 3.80 - 9.90 K/cumm Hgb 7.5(L) 11.9 - 15.5 g/dL [facility] Hct 22.3(L) 35.6 - 45.5 % [facility] Plt 185 150 - 400 K/cumm [facility] MPV 10.6 9.1 - 12.3 fL [facility] RBC 2.50(L) 3.90 - 5.20 M/cumm [facility] MCV 89.2 81.3 - 96.4 fL [facility] MCH 30.0 27.1 - 33.3 pg [facility] MCHC 33.6 32.3 - 35.7 g/dL [facility] RDW CV 16.3(H) 11.1 - 14.9 % [facility] RDW SD 52.9(H) 35.7 - 48.1 fL [facility] NRBC abs 0.00 0.00 - 0.01 K/cumm [facility] Blood 01/27/2025 6:22 AM CDT 01/27/2025 7:28 AM CDT Sheila Canela [employer] LAB BLOOD ORDERABLES Final Result Performing Organization Address [facility] Co de Phone Number [facility] Department [place] [address] * (ABNORMAL) aPTT (01/27/2025 6:22 AM CDT) [facility] aPTT 93(H) 26 - 38 sec Comment: Interpretive Data Heparin therapeutic range: 66.0 - 100.0 seconds. Range based on correlation with therapeutic heparin activity range of 0.3 - 0.7 Units/mL. Current interpretive data was last revised on 2023. Blood 01/27/2025 6:22 AM CDT 01/27/2025 7:35 AM CDT Narrative [facility] - 01/27/2025 8:00 AM CDT STAT PTT timing: - Draw 6 hours after heparin infusion initiation - Draw 6 hours after every dose change until 2 consecutive PTTs are therapeutic - Once 2 consecutive PTTs are therapeutic, obtain with daily labs until infusion is discontinued - - Restart every 6 hour lab draws and follow instructions accordingly if PTT is outside of therapeutic range Do not draw lab from IV line that is actively infusing heparin. Use the opposite arm. If arm with actively infusing heparin must be used, pause the infusion for at least 2 minutes, and draw specimen below the IV site. For patients with a central venous catheter (CVC), lab must be drawn peripherally (not from CVC). us Shirley Baltazar [employer] LAB BLOOD ORDERABLES Final Result Performing Organization Address [facility]/ZIP Co de Phone Number [facility] Department [place] [address] * Type and screen (01/27/2025 6:22 AM CDT) Pathologist [facility] [place] ABO Rh O Negative [place], indirect Negative [facility] Blood 01/27/2025 6:22 AM CDT 01/27/2025 7:41 AM CDT Narrative [facility] - 01/27/2025 8:33 AM CDT Has the patient had Daratumumab or Isatuximab in the past 6 months?->Unknown Sheila Canela [employer] LAB BLOOD BANK TEST ORDERA BLES Final Result [facility] Department [place] [address] * ECG 12 lead (01/27/2025 3:45 AM CDT) [facility] Ventricular Rate EKG/Min 64 BPM [facility] QRS-Interval (MSEC) 84 ms [facility] QT-Interval (MSEC) 508 ms [facility] QTc 524 ms [facility] R [place] 52 degrees [facility] T [place] 81 degrees [facility] Diagnosis Atrial fibrillation with premature ventricular or aberrantly conducted complexes Low voltage QRS Septal infarct , age undetermined Possible Lateral infarct , age undetermined T wave abnormality, consider anterior ischemia Prolonged QT Abnormal ECG Confirmed by Janneth Willingham MD ([id number]) on 01/27/2025 2:41:50 PM [facility] 01/27/2025 3:45 AM CDT 01/27/2025 2:41 PM CDT Mary Alice Landeros [employer] ECG ORDERABLES Final Resu lt [facility] * (ABNORMAL) eGFR (01/26/2025 8:54 PM CDT) Pathologist [facility] [place] eGFR 56(L) >=60 mL/min/1. 73 m2 Comment: Interpretive Data Reference Interval Normal >/= 90 mL/min/1.73m2 Mildly decreased* 60 - 89 mL/min/1.73m2 Mildly to moderately decreased 45 - 59 mL/min/1.73m2 Moderately to severely decreased 30 - 44 mL/min/1.73m2 Severely decreased 15 - 29 mL/min/1.73m2 Kidney Failure < 15 mL/min/1.73m2 *Relative to young adult level Estimated glomerular filtration rate is determined by the 2020 CKD-EPI equation recommended by the National Kidney Foundation (A Unifying Approach to GFR Estimation: Recommendations of the NKF-ASK Task Force on Reassessing the Inclusion of Race in Diagnosing Kidney Disease, JASN 2020). The CKD-EPI equation should not be used for patients with unstable renal function and has not been validated in children and those over 70. Current interpretive data was last reviewed 2021. Blood 01/26/2025 8:54 PM CDT 01/26/2025 10:10 PM CDT Charissa Beltran [facility] LAB BLOOD ORDERABLES Final Result [facility] Department [place] [address] * (ABNORMAL) aPTT (01/26/2025 8:54 PM CDT) aPTT 44(H) 26 - 38 sec Comment: Interpretive Data Heparin therapeutic range: 66.0 - 100.0 seconds. Range based on correlation with therapeutic heparin activity range of 0.3 - 0.7 Units/mL. Current interpretive data was last revised on 2023. Blood 01/26/2025 8:54 PM CDT 01/26/2025 10:04 PM CDT Narrative [facility] - 01/26/2025 10:14 PM CDT STAT PTT timing: - Draw 6 hours after heparin infusion initiation - Draw 6 hours after every dose change until 2 consecutive PTTs are therapeutic - Once 2 consecutive PTTs are therapeutic, obtain with daily labs until infusion is discontinued - - Restart every 6 hour lab draws and follow instructions accordingly if PTT is outside of therapeutic range Do not draw lab from IV line that is actively infusing heparin. Use the opposite arm. If arm with actively infusing heparin must be used, pause the infusion for at least 2 minutes, and draw specimen below the IV site. For patients with a central venous catheter (CVC), lab must be drawn peripherally (not from CVC). Shirley Baltazar [employer] LAB BLOOD ORDERABLES Final Result Performing Organization Address [facility] Co de Phone Number [facility] Department [place] [address] * (ABNORMAL) CBC without differential (01/26/2025 8:54 PM CDT) [facility] WBC 8.31 3.80 - 9.90 K/cumm Hgb 7.5(L) 11.9 - 15.5 g/dL [facility] Hct 22.7(L) 35.6 - 45.5 % [facility] Plt 172 150 - 400 K/cumm [facility] MPV 10.4 9.1 - 12.3 fL [facility] RBC 2.53(L) 3.90 - 5.20 M/cumm [facility] MCV 89.7 81.3 - 96.4 fL [facility] MCH 29.6 27.1 - 33.3 pg [facility] MCHC 33.0 32.3 - 35.7 g/dL [facility] RDW CV 16.2(H) 11.1 - 14.9 % [facility] RDW SD 52.6(H) 35.7 - 48.1 fL [facility] NRBC abs 0.00 0.00 - 0.01 K/cumm [facility] Blood 01/26/2025 8:54 PM CDT 01/26/2025 10:00 PM CDT Charissa Beltran DNP LAB BLOOD ORDERABLES Final Result Performing Organization Address [facility]/ZIP Co de Phone Number [facility] Department [place] [address] * (ABNORMAL) Comprehensive metabolic panel (01/26/2025 8:54 PM CDT) Sodium 127(L) 135 - 145 mmol/L Potassium, pl 4.0 3.3 - 4.9 mmol/L [facility] Chloride 94(L) 97 - 110 mmol/L [facility] CO2 23 22 - 32 mmol/L [facility] Anion gap 10 2 - 15 mmol/L [facility] BUN 10 6 - 25 mg/dL [facility] Creatinine 1.03 0.60 - 1.10 mg/dL [facility] Glucose 105 70 - 199 mg/dL [facility] Comment: Interpretive Data Fasting glucose >/= 126 mg/dl is diagnostic for diabetes. Fasting is defined as no caloric intake for at least 8 hours. Fasting glucose between 100 mg/dl to 125 mg/dl is diagnostic of prediabetes. In a patient with classic symptoms of hyperglycemia or hyperglycemic crisis, a random glucose >/= 200 mg/dl is diagnostic for diabetes. In the absence of unequivocal hyperglycemia, results should be confirmed by repeat testing. The classification and Diagnosis of Diabetes Diabetes Care 202; 46: S19-S40. Current interpretive data was last revised 2022. Calcium 8.6 8.5 - 10.3 mg/dL [facility] Bilirubin, total 0.4 0.1 - 1.2 mg/dL [facility] Protein, pl 6.0(L) 6.5 - 8.5 g/dL [facility] Albumin 3.4(L) 3.5 - 5.0 g/dL [facility] Alk phos 120 40 - 130 Units/L [facility] ALT 40 7 - 45 Units/L [facility] AST 36 10 - 45 Units/L [facility] Blood 01/26/2025 8:54 PM CDT 01/26/2025 10:10 PM CDT us Charissa Beltran [facility] LAB BLOOD ORDERABLES Final Result [facility] Department [place] [address] * CT Head WO Contrast (01/26/2025 3:58 PM CDT) Anatomical Region Laterality Modality Head and Neck N/A Computed Tomogra phy 01/26/2025 4:28 PM CDT Impressions 01/26/2025 5:14 PM CDT 1. No acute intracranial hemorrhage, midline shift, hydrocephalus. 2. Right frontal approach ventricular drainage catheter unchanged position, with unchanged morphology and size of the ventricles. 3. Evolving punctate infarcts are better characterized on prior MR dated 01/08/2025. Dictated by: Papo Adler M.D. The radiology attending physician has personally reviewed this study, and had reviewed and/or edited this written report and agrees with it. Electronically signed by: Lina Ward M.D. 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 TECHNIQUE: CT of the head was performed with images acquired from skull base to vertex without intravenous contrast. COMPARISON: CT head 01/18/2025 FINDINGS: Right frontal approach ventricular drainage catheter is unchanged in position, with tip terminating in the right lateral ventricle. No significant change in bilateral frontal convexity hypodense subdural collections. Multiple punctate infarcts, within the right frontal lobe, right thalamus, and left cerebellum, are not not well visualized on the current examination and are better evaluated on prior MRI dated 01/08/2025. There is no acute intracranial hemorrhage. Ventricles are of unchanged size and morphology. No mass effect or midline shift is present. There are multiple small periventricular white matter hypodensities, most likely sequela of chronic small vessel disease bilateral lens replacements. The visualized portions of the mastoids are normal. The visualized portions of the paranasal sinuses are normal. No fractures are identified. Interval removal of nasoenteric tube. 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 TECHNIQUE: CT of the head was performed with images acquired from skull base to vertex without intravenous contrast. COMPARISON: CT head 01/18/2025 FINDINGS: Right frontal approach ventricular drainage catheter is unchanged in position, with tip terminating in the right lateral ventricle. No significant change in bilateral frontal convexity hypodense subdural collections. Multiple punctate infarcts, within the right frontal lobe, right thalamus, and left cerebellum, are not not well visualized on the current examination and are better evaluated on prior MRI dated 01/08/2025. There is no acute intracranial hemorrhage. Ventricles are of unchanged size and morphology. No mass effect or midline shift is present. There are multiple small periventricular white matter hypodensities, most likely sequela of chronic small vessel disease bilateral lens replacements. The visualized portions of the mastoids are normal. The visualized portions of the paranasal sinuses are normal. No fractures are identified. Interval removal of nasoenteric tube. IMPRESSION: 1. No acute intracranial hemorrhage, midline shift, hydrocephalus. 2. Right frontal approach ventricular drainage catheter unchanged position, with unchanged morphology and size of the ventricles. 3. Evolving punctate infarcts are better characterized on prior MR dated 01/08/2025. Dictated by: Papo Adler M.D. The radiology attending physician has personally reviewed this study, and had reviewed and/or edited this written report and agrees with it. Electronically signed by: Lina Ward M.D. Shirley Baltazar [employer] IMG CT PROCEDURES Fin al Result * (ABNORMAL) eGFR (01/26/2025 10:05 AM CDT) eGFR 57(L) >=60 mL/min/1. 73 m2 Comment: Interpretive Data Reference Interval Normal >/= 90 mL/min/1.73m2 Mildly decreased* 60 - 89 mL/min/1.73m2 Mildly to moderately decreased 45 - 59 mL/min/1.73m2 Moderately to severely decreased 30 - 44 mL/min/1.73m2 Severely decreased 15 - 29 mL/min/1.73m2 Kidney Failure < 15 mL/min/1.73m2 *Relative to young adult level Estimated glomerular filtration rate is determined by the 2020 CKD-EPI equation recommended by the National Kidney Foundation (A Unifying Approach to GFR Estimation: Recommendations of the NKF-ASK Task Force on Reassessing the Inclusion of Race in Diagnosing Kidney Disease, JASN 202). The CKD-EPI equation should not be used for patients with unstable renal function and has not been validated in children and those over 70. Current interpretive data was last reviewed 2021. Blood 01/26/2025 10:0 5 AM CDT 01/26/2025 10:54 AM CDT Shirley Baltazar [employer] LAB BLOOD ORDERABLES Final Result [facility] Department [place] [address] * (ABNORMAL) Basic metabolic panel (01/26/2025 10:05 AM CDT) Sodium 126(L) 135 - 145 mmol/L Potassium, pl 3.4 3.3 - 4.9 mmol/L [facility] Chloride 90(L) 97 - 110 mmol/L [facility] CO2 24 22 - 32 mmol/L [facility] Anion gap 12 2 - 15 mmol/L [facility] BUN 11 6 - 25 mg/dL [facility] Creatinine 1.01 0.60 - 1.10 mg/dL [facility] Glucose 126 70 - 199 mg/dL [facility] Comment: Interpretive Data Fasting glucose >/= 126 mg/dl is diagnostic for diabetes. Fasting is defined as no caloric intake for at least 8 hours. Fasting glucose between 100 mg/dl to 125 mg/dl is diagnostic of prediabetes. In a patient with classic symptoms of hyperglycemia or hyperglycemic crisis, a random glucose >/= 200 mg/dl is diagnostic for diabetes. In the absence of unequivocal hyperglycemia, results should be confirmed by repeat testing. The classification and Diagnosis of Diabetes Diabetes Care 2021; 46: S19-S40. Current interpretive data was last revised 2022. Calcium 8.4(L) 8.5 - 10.3 mg/dL [facility] Blood 01/26/2025 10:0 5 AM CDT 01/26/2025 10:54 AM CDT Shirley Baltazar [employer] LAB BLOOD ORDERABLES Final Result [facility] Department [place] [address] * Infection Prevention Blade auris PCR, surveillance Axilla/Groin (01/26/2025 9:54 AM CDT) Pathologist [facility] [place] Blade auris DNA Not Detected Not Detected [facility] Comment: Interpretive Data Testing performed by [facility] using the Rich chioma 6800 Blade auris assay. This assay detects DNA from Blade auris using Real-Time PCR. This assay is laboratory developed and is not cleared by the [place] Food and Drug Administration. The performance characteristics have been verified by the [facility]. Axilla/Groin 01/26/2025 9:54 AM CDT 01/26/2025 10:31 AM CDT us Sukhdev Bell MD LAB MICROBIOLOGY - GENERAL ORDER RILEY Final Result [facility] [place] [facility] [place] [address] [facility] * (ABNORMAL) aPTT (01/26/2025 4:45 AM CDT) Pathologist [facility] [place] aPTT 88(H) 26 - 38 sec Comment: Interpretive Data Heparin therapeutic range: 66.0 - 100.0 seconds. Range based on correlation with therapeutic heparin activity range of 0.3 - 0.7 Units/mL. Current interpretive data was last revised on 2023. Blood 01/26/2025 4:45 AM CDT 01/26/2025 5:50 AM CDT Narrative [facility] - 01/26/2025 6:19 AM CDT STAT PTT timing: - Draw 6 hours after heparin infusion initiation - Draw 6 hours after every dose change until 2 consecutive PTTs are therapeutic - Once 2 consecutive PTTs are therapeutic, obtain with daily labs until infusion is discontinued - - Restart every 6 hour lab draws and follow instructions accordingly if PTT is outside of therapeutic range Do not draw lab from IV line that is actively infusing heparin. Use the opposite arm. If arm with actively infusing heparin must be used, pause the infusion for at least 2 minutes, and draw specimen below the IV site. For patients with a central venous catheter (CVC), lab must be drawn peripherally (not from CVC). us Shirley Baltazar [employer] LAB BLOOD ORDERABLES Final Result Performing Organization Address City/[facility]/ZIP Co de Phone Number [facility] [place] [employer] [place] [address] * (ABNORMAL) eGFR (01/25/2025 10:13 PM CDT) Pathologist [facility] [place] eGFR 45(L) >=60 mL/min/1. 73 m2 Comment: Interpretive Data Reference Interval Normal >/= 90 mL/min/1.73m2 Mildly decreased* 60 - 89 mL/min/1.73m2 Mildly to moderately decreased 45 - 59 mL/min/1.73m2 Moderately to severely decreased 30 - 44 mL/min/1.73m2 Severely decreased 15 - 29 mL/min/1.73m2 Kidney Failure < 15 mL/min/1.73m2 *Relative to young adult level Estimated glomerular filtration rate is determined by the 2020 CKD-EPI equation recommended by the National Kidney Foundation (A Unifying Approach to GFR Estimation: Recommendations of the NKF-ASK Task Force on Reassessing the Inclusion of Race in Diagnosing Kidney Disease, JASN 2020). The CKD-EPI equation should not be used for patients with unstable renal function and has not been validated in children and those over 70. Current interpretive data was last reviewed 2021. Blood 01/25/2025 10:1 3 PM CDT 01/25/2025 11:06 PM CDT us Charissa Beltran DNP LAB BLOOD ORDERABLES Final Result Performing Organization Address City/[facility]/ZIP Co de Phone Number [facility] Department [place] [address] * (ABNORMAL) aPTT (01/25/2025 10:13 PM CDT) [facility] aPTT 70(H) 26 - 38 sec Comment: Interpretive Data Heparin therapeutic range: 66.0 - 100.0 seconds. Range based on correlation with therapeutic heparin activity range of 0.3 - 0.7 Units/mL. Current interpretive data was last revised on 2023. Blood 01/25/2025 10:1 3 PM CDT 01/25/2025 10:51 PM CDT Narrative [facility] - 01/25/2025 11:00 PM CDT STAT PTT timing: - Draw 6 hours after heparin infusion initiation - Draw 6 hours after every dose change until 2 consecutive PTTs are therapeutic - Once 2 consecutive PTTs are therapeutic, obtain with daily labs until infusion is discontinued - - Restart every 6 hour lab draws and follow instructions accordingly if PTT is outside of therapeutic range Do not draw lab from IV line that is actively infusing heparin. Use the opposite arm. If arm with actively infusing heparin must be used, pause the infusion for at least 2 minutes, and draw specimen below the IV site. For patients with a central venous catheter (CVC), lab must be drawn peripherally (not from CVC). us Shirley Baltazar NP LAB BLOOD ORDERABLES Final Result [facility] Department [place] [address] * (ABNORMAL) CBC without differential (01/25/2025 10:13 PM CDT) [facility] WBC 8.61 3.80 - 9.90 K/cumm Hgb 9.1(L) 11.9 - 15.5 g/dL [facility] Hct 26.8(L) 35.6 - 45.5 % [facility] Plt 180 150 - 400 K/cumm [facility] MPV 10.5 9.1 - 12.3 fL [facility] RBC 3.00(L) 3.90 - 5.20 M/cumm [facility] MCV 89.3 81.3 - 96.4 fL [facility] MCH 30.3 27.1 - 33.3 pg [facility] MCHC 34.0 32.3 - 35.7 g/dL [facility] RDW CV 16.4(H) 11.1 - 14.9 % [facility] RDW SD 52.7(H) 35.7 - 48.1 fL [facility] NRBC abs 0.00 0.00 - 0.01 K/cumm [facility] Blood 01/25/2025 10:1 3 PM CDT 01/25/2025 10:53 PM CDT Charissa Beltran DNP LAB BLOOD ORDERABLES Final Result [facility] Department [place] [address] * Ammonia (01/25/2025 10:13 PM CDT) Pathologist [facility] [place] Ammonia <20 <=50 mcmol/L Comment:Repeated and Verifie d Blood 01/25/2025 10:1 3 PM CDT 01/25/2025 10:45 PM CDT Sheila Canela [employer]OR [employer] SERVICER LAB BLOOD ORDERABLES Final Result Performing Organization Address City/[facility]/ZIP Co de Phone Number [facility] Department [place] [address] * (ABNORMAL) Hepatic function panel (01/25/2025 10:13 PM CDT) Bilirubin, total 0.5 0.1 - 1.2 mg/dL Bilirubin, direct 0.2 0.1 - 0.3 mg/dL [facility] Protein, pl 6.5 6.5 - 8.5 g/dL [facility] Albumin 3.7 3.5 - 5.0 g/dL [facility] Alk phos 141(H) 40 - 130 Units/L [facility] ALT 49(H) 7 - 45 Units/L [facility] AST 53(H) 10 - 45 Units/L [facility] Blood 01/25/2025 10:1 3 PM CDT 01/25/2025 11:06 PM CDT us Brenna Chavez MD LAB BLOOD ORDERABLES Final Resul t [facility] Department [place] [address] * (ABNORMAL) Basic metabolic panel (01/25/2025 10:13 PM CDT) [facility] Sodium 130(L) 135 - 145 mmol/L Potassium, pl 3.6 3.3 - 4.9 mmol/L [facility] Chloride 96(L) 97 - 110 mmol/L [facility] CO2 25 22 - 32 mmol/L [facility] Anion gap 9 2 - 15 mmol/L [facility] BUN 16 6 - 25 mg/dL [facility] Creatinine 1.23(H) 0.60 - 1.10 mg/dL [facility] Glucose 86 70 - 199 mg/dL [facility] Comment: Interpretive Data Fasting glucose >/= 126 mg/dl is diagnostic for diabetes. Fasting is defined as no caloric intake for at least 8 hours. Fasting glucose between 100 mg/dl to 125 mg/dl is diagnostic of prediabetes. In a patient with classic symptoms of hyperglycemia or hyperglycemic crisis, a random glucose >/= 200 mg/dl is diagnostic for diabetes. In the absence of unequivocal hyperglycemia, results should be confirmed by repeat testing. The classification and Diagnosis of Diabetes Diabetes Care 2021; 46: S19-S40. Current interpretive data was last revised 2022. Calcium 8.9 8.5 - 10.3 mg/dL [facility] Blood 01/25/2025 10:1 3 PM CDT 01/25/2025 11:06 PM CDT us Charissa Beltran DNP LAB BLOOD ORDERABLES Final Result Performing Organization Address City/[facility]/ZIP Co de Phone Number [facility] One [facility] Department [place] [address] * aPTT (01/25/2025 3:03 PM CDT) [facility] aPTT 29 26 - 38 sec Comment: Interpretive Data Heparin therapeutic range: 66.0 - 100.0 seconds. Range based on correlation with therapeutic heparin activity range of 0.3 - 0.7 Units/mL. Current interpretive data was last revised on 2023. Blood 01/25/2025 3:03 PM CDT 01/25/2025 3:49 PM CDT Arabella RAWLS [facility] - 01/25/2025 4:01 PM CDT STAT PTT timing: - Draw 6 hours after heparin infusion initiation - Draw 6 hours after every dose change until 2 consecutive PTTs are therapeutic - Once 2 consecutive PTTs are therapeutic, obtain with daily labs until infusion is discontinued - - Restart every 6 hour lab draws and follow instructions accordingly if PTT is outside of therapeutic range Do not draw lab from IV line that is actively infusing heparin. Use the opposite arm. If arm with actively infusing heparin must be used, pause the infusion for at least 2 minutes, and draw specimen below the IV site. For patients with a central venous catheter (CVC), lab must be drawn peripherally (not from CVC). us Shirley Baltazar NP LAB BLOOD ORDERABLES Final Result [facility] Department [place] [address] * ECG 12 lead (01/25/2025 4:45 AM CDT) [facility] Ventricular Rate EKG/Min 75 BPM [facility] QRS-Interval (MSEC) 92 ms [facility] QT-Interval (MSEC) 416 ms [facility] QTc 464 ms [facility] R [place] 70 degrees [facility] T [place] 81 degrees [facility] Diagnosis Normal sinus rhythm Poor r wave progression associated with abnormal lead placement, obesity, pulmonary disease, anterior infarction. ST elevation consider inferior injury or acute infarct Abnormal ECG No previous ECGs available Confirmed by GUSTAVO VIEYRA M.D ([id number]) on 01/25/2025 1:35:29 PM [facility] 01/25/2025 4:45 AM CDT 01/25/2025 1:35 PM CDT Mary Alice Landeros [employer] E[employer]OR [employer] SERVICER ECG ORDERABLES Final Resu lt [facility] * eGFR (01/24/2025 10:08 PM CDT) eGFR 61 >=60 mL/min/1. 73 m2 Comment: Interpretive Data Reference Interval Normal >/= 90 mL/min/1.73m2 Mildly decreased* 60 - 89 mL/min/1.73m2 Mildly to moderately decreased 45 - 59 mL/min/1.73m2 Moderately to severely decreased 30 - 44 mL/min/1.73m2 Severely decreased 15 - 29 mL/min/1.73m2 Kidney Failure < 15 mL/min/1.73m2 *Relative to young adult level Estimated glomerular filtration rate is determined by the 2020 CKD-EPI equation recommended by the National Kidney Foundation (A Unifying Approach to GFR Estimation: Recommendations of the NKF-ASK Task Force on Reassessing the Inclusion of Race in Diagnosing Kidney Disease, JASN 2020). The CKD-EPI equation should not be used for patients with unstable renal function and has not been validated in children and those over 70. Current interpretive data was last reviewed 2021. Blood 01/24/2025 10:0 8 PM CDT 01/24/2025 10:47 PM CDT Charissa Beltran DNP LAB BLOOD ORDERABLES Final Result [facility] One [facility] Department [place] [address] * (ABNORMAL) Differential, auto (01/24/2025 10:08 PM CDT) Neutrophil abs 9.09(H) 1.50 - 6.50 K/cumm Imm gran abs 0.06 0.00 - 0.10 K/cumm [facility] Lymphocyte abs 1.11 0.80 - 3.30 K/cumm [facility] Monocyte abs 1.49(H) 0.20 - 0.80 K/cumm [facility] Eosinophil abs 0.10 0.00 - 0.50 K/cumm [facility] Basophil abs 0.02 0.00 - 0.10 K/cumm [facility] Neutrophil pct 76.5 % [facility] Comment: Interpretive Data Percent cell count reference ranges are not reported, since discordance with absolute values may lead to misinterpretation of CBC data. Current Interpretive Data was last revised on 2017. Imm gran pct 0.5 % [facility] Comment: Interpretive Data Percent cell count reference ranges are not reported, since discordance with absolute values may lead to misinterpretation of CBC data. Current Interpretive Data was last revised on 2017. Lymphocyte pct 9.4 % [facility] Comment: Interpretive Data Percent cell count reference ranges are not reported, since discordance with absolute values may lead to misinterpretation of CBC data. Current Interpretive Data was last revised on 2017. Monocyte pct 12.6 % [facility] Comment: Interpretive Data Percent cell count reference ranges are not reported, since discordance with absolute values may lead to misinterpretation of CBC data. Current Interpretive Data was last revised on 2017. Eosinophil pct 0.8 % [facility] Comment: Interpretive Data Percent cell count reference ranges are not reported, since discordance with absolute values may lead to misinterpretation of CBC data. Current Interpretive Data was last revised on 2017. Basophil pct 0.2 % [facility] Comment: Interpretive Data Percent cell count reference ranges are not reported, since discordance with absolute values may lead to misinterpretation of CBC data. Current Interpretive Data was last revised on 2017. Blood 01/24/2025 10:0 8 PM CDT 01/24/2025 11:00 PM CDT us Brenna Chavez MD LAB BLOOD ORDERABLES Final Resul t [facility] Department [place] [address] * (ABNORMAL) CBC without differential (01/24/2025 10:08 PM CDT) WBC 12.03(H) 3.80 - 9.90 K/cumm Hgb 8.5(L) 11.9 - 15.5 g/dL [facility] Hct 24.9(L) 35.6 - 45.5 % [facility] Plt 150 150 - 400 K/cumm [facility] MPV 10.4 9.1 - 12.3 fL [facility] RBC 2.81(L) 3.90 - 5.20 M/cumm [facility] MCV 88.6 81.3 - 96.4 fL [facility] MCH 30.2 27.1 - 33.3 pg [facility] MCHC 34.1 32.3 - 35.7 g/dL [facility] RDW CV 16.3(H) 11.1 - 14.9 % [facility] RDW SD 52.3(H) 35.7 - 48.1 fL [facility] NRBC abs 0.00 0.00 - 0.01 K/cumm [facility] Blood 01/24/2025 10:0 8 PM CDT 01/24/2025 10:56 PM CDT Charissa Beltran [facility] LAB BLOOD ORDERABLES Final Result [facility] Department [place] [address] * Type and screen (01/24/2025 10:08 PM CDT) ABO Rh O Negative [place], indirect Negative [facility] Blood 01/24/2025 10:0 8 PM CDT 01/24/2025 10:42 PM CDT Narrative [facility] - 01/24/2025 11:35 PM CDT Has the patient had Daratumumab or Isatuximab in the past 6 months?->Unknown Charissa Beltran [facility] LAB BLOOD BANK TEST O RDERABLES Final Result Performing Organization Address [facility]/ZIP Co de Phone Number [facility] Department [place] [employer] [place] [address] * Creatine kinase (CK), total (01/24/2025 10:08 PM CDT) Pathologist [facility] CK 146 30 - 200 Units/L Blood 01/24/2025 10:0 8 PM CDT 01/24/2025 10:47 PM CDT Charissa Beltran [facility] LAB BLOOD ORDERABLES Final Result Performing Organization Address [facility] Co de Phone Number [facility] [place] [employer] [place] [address] * (ABNORMAL) Hepatic function panel (01/24/2025 10:08 PM CDT) [facility] Bilirubin, total 0.6 0.1 - 1.2 mg/dL Bilirubin, direct 0.2 0.1 - 0.3 mg/dL [facility] Protein, pl 6.4(L) 6.5 - 8.5 g/dL [facility] Albumin 3.5 3.5 - 5.0 g/dL [facility] Alk phos 133(H) 40 - 130 Units/L [facility] ALT 48(H) 7 - 45 Units/L [facility] AST 65(H) 10 - 45 Units/L [facility] Blood 01/24/2025 10:0 8 PM CDT 01/24/2025 10:47 PM CDT Brenna Chavez MD LAB BLOOD ORDERABLES Final Resul t Performing Organization Address [facility] Co de Phone Number [place], [place] [id number] * (ABNORMAL) Basic metabolic panel (01/24/2025 10:08 PM CDT) Pathologist [facility] [place] Sodium 132(L) 135 - 145 mmol/L Potassium, pl 4.3 3.3 - 4.9 mmol/L [facility] Chloride 98 97 - 110 mmol/L [facility] CO2 25 22 - 32 mmol/L [facility] Anion gap 9 2 - 15 mmol/L [facility] BUN 12 6 - 25 mg/dL [facility] Creatinine 0.96 0.60 - 1.10 mg/dL [facility] Glucose 92 70 - 199 mg/dL [facility] Comment: Interpretive Data Fasting glucose >/= 126 mg/dl is diagnostic for diabetes. Fasting is defined as no caloric intake for at least 8 hours. Fasting glucose between 100 mg/dl to 125 mg/dl is diagnostic of prediabetes. In a patient with classic symptoms of hyperglycemia or hyperglycemic crisis, a random glucose >/= 200 mg/dl is diagnostic for diabetes. In the absence of unequivocal hyperglycemia, results should be confirmed by repeat testing. The classification and Diagnosis of Diabetes Diabetes Care 2021; 46: S19-S40. Current interpretive data was last revised 2022. Calcium 9.2 8.5 - 10.3 mg/dL [facility] Blood 01/24/2025 10:0 8 PM CDT 01/24/2025 10:47 PM CDT Charissa Beltran [facility] LAB BLOOD ORDERABLES Final Result [facility] Department [place] [address] * TRANSTHORACIC ECHO (TTE) COMPLETE W DOPPLER/CF W CONTRAST (01/24/2025 5:27 PM CDT) [facility] EF Mod BP 58 % CONS SCIMAGE Anatomical Region Laterality Modality Ultrasound 01/24/2025 4:13 PM CDT Narrative 01/24/2025 6:21 PM CDT [facility] Cardiac [place] [address] Transthoracic Echocardiographic Report Patient Name: VENKATESH ZALDIVAR L : 1945 (79y 1m) Sex: F Study Date: 01/24/2025 04:13:47 PM Ht(Inch): 63 Wt(Lb): 164.9 BSA: 1.78 Scaffolding Helper: Yuli Cavazos RDCS Location: [id number] Order Provider: MARY ALICE LANDEROS BMI: 29.21 BP: 154 / 78 Ref Provider: MARY ALICE LANDEROS - PROCEDURES: Echocardiographic Report: Transthoracic complete echo with strain imaging and contrast, 2D, spectral and tissue Doppler, color flow Doppler, M-mode. Contrast: Contrast Enhancement was Employed: After initial imaging due to sub- optimal quality related to co-morbidity defined by patient's body habitus and due to suboptimal image quality with inadequate visualization of at least 2 of 16 LV wall segments in any view after initial imaging. Perflutren contrast was administered using the volume necessary to obtain adequate images. 0.8 ml Optison Administered, (2.2 ml wasted). INDICATIONS: MVrepair, CABG, JOSELYN ligation. CONCLUSIONS: 1. Normal left ventricular size based on volume index. Concentric LV remodeling. The Ejection Fraction (Ayers's) is measured at 58 %. Left ventricular diastolic function is indeterminate due to mitral valve repair or replacement. The average global longitudinal strain is borderline. Paradoxical interventricular septal motion consistent with prior cardiac or thoracic surgery. 2. Normal right ventricular size. Mild right ventricular hypokinesis. 3. No mitral regurgitation. The mean transmitral gradient is: 4 mmHg. Status post mitral valve repair with annuloplasty ring. 4. Normal pericardium without pericardial effusion. 5. Normal aortic root. 6. IVC is dilated. 7. Unable to determine PASP due to inadequate TR jet. ATTESTATION: I have personally reviewed and interpreted this study without fellow or resident. DISCLAIMER: The study images and the final report will be retained in the patient chart by the Echo Laboratory for the legally required time period. This chart constitutes the legal record of any testing performed. FINDINGS: Left Ventricle: Normal left ventricular size based on volume index. Concentric LV remodeling. Normal left ventricular systolic function. The Ejection Fraction (Ayers's) is measured at 58 %. Left ventricular diastolic function is indeterminate due to mitral valve repair or replacement. The average global longitudinal strain is borderline. The LV global strain is: -16.9 %. Paradoxical interventricular septal motion consistent with prior cardiac or thoracic surgery. Right Ventricle: Normal right ventricular size. Mild right ventricular hypokinesis. Left Atrium: The left atrium is normal in size. Right Atrium: The right atrium is normal in size. Mitral Valve: No mitral regurgitation. No stenosis present. The mean transmitral gradient is: 4 mmHg. Specific MV Structure Abnormalities: Status post mitral valve repair with annuloplasty ring. Aortic Valve: Trileaflet aortic valve. Mildly thickened aortic valve leaflets. No aortic regurgitation. No aortic valve stenosis. The mean transaortic gradient is 5 mmHg. The aortic valve area by the continuity equation (using VTI) is 2.9 cm2. Aortic valve dimensionless index is 0.85. Tricuspid Valve: Normal tricuspid valve structure. No tricuspid regurgitation. No tricuspid valve stenosis. Pulmonic Valve: Normal pulmonic valve structure. No pulmonic regurgitation. No pulmonic valve stenosis present. Pericardium: Normal pericardium without pericardial effusion. Aorta: Normal aortic root. IVC: IVC is dilated. PASP: Unable to determine PASP due to inadequate TR jet. MEASUREMENTS: 2D/MM Value Range Doppler Value Range LVIDd 2D 4.9 cm [ 3.8 - 5.2 ] AV Peak Ronnie 1.5 m/s [ 1.0 - 1.7 ] LVIDs 2D 2.7 cm [ 2.2 - 3.5 ] AV Peak PG 9 mmHg IVSd 2D 1.1 cm [ 0.6 - 0.9 ] AV Mean PG 5 mmHg LVPWd 2D 1.0 cm [ 0.6 - 0.9 ] AV VTI 26 cm LV Thickness Ratio 1.1 LVOT Peak Ronnie 1.2 m/s [ 0.7 - 1.1 ] LV FS 2D 45.49 % [ 27.00 - 45.00 ] LVOT Peak PG 6 mmHg LV Mass 2D 191.86 g LVOT Mean PG 3 mmHg LV Mass Index 2D 107.70 g/m2 LVOT VTI 22 cm RWT 0.41 LVOT Diam 2.1 cm EDV Mod BP 66 ml [ 46 - 106 ] KALEIGH VTI 2.9 cm2 LV EDV Index 37 ml/m2 LVOT/AV VTI 0.85 - Dimensionless index (DVI) ESV Mod BP 28 ml [ 14 - 42 ] MV E Peak Ronnie 1.70 m/s [ 0.60 - 1.30 ] EF Mod BP 58 % [ 54 - 74 ] MV A Peak Ronnie 0.55 m/s [ 1.00 - 1.20 ] LV GLS -16.9 % [ -25.0 - -18.0 ] MV E/A 3.1 ratio [ 0.8 - 1.5 ] LA Length 4C 5.5 cm MV Peak Ronnie 1.7 m/s LA Length 2C 5.1 cm MV Peak PG 12 mmHg LA Volume BP 39 ml MV Mean PG 4 mmHg LA Volume Index 22 ml/m2 [ 16 - 34 ] MV VTI 44 cm RV Base Dimen 2D 3.9 cm [ 2.5 - 4.2 ] MV Decel [place] 536 TAPSE 1.3 cm [ 1.7 - 5.0 ] MV Decel Time 316 msec [ 104 - 258 ] RA Volume 39 ml Med E` Ronnie 5.3 cm/sec [ 8.0 - 25.0 ] RA Volume Index 22 ml/m2 Lat E` Ronnie 6.1 cm/sec [ 10.0 - 25.0 ] IVC Diam 1.7 cm Average E/E` 30 IVC Collapse 62.3 % RV S` 10.6 cm/sec AoR Diam 2D 3.0 cm [ 2.7 - 3.7 ] PV Peak Ronnie 1.4 m/s [ 0.4 - 0.8 ] Ao Root Index 1.7 cm/m2 [ 1.0 - 2.0 ] PV Peak PG 8 mmHg Asc Ao Diam 2D 3.1 cm Asc Ao Index 1.7 cm/m2 Electronically Signed By: Janneth Willingham MD 01/24/2025 6:21:00 PM CDT Procedure Note Janneth Willingham MD - 01/24/2025 [facility] Cardiac Diagnostic [place] [address] Transthoracic Echocardiographic Report Patient Name: VENKATESH ZALDIVAR L : 1945 (79y 1m) Sex: F Study Date: 01/24/2025 04:13:47 PM Ht(Inch): 63 Wt(Lb): 164.9 BSA: 1.78 Scaffolding Helper: Yuli Cavazos RDCS Location: [id number] Order Provider:MARY ALICE LANDEROS BMI: 29.21 BP: 154 / 78 Ref Provider: MARY ALICE LANDEROS - PROCEDURES: Echocardiographic Report: Transthoracic complete echo with strain imagingand contrast, 2D, spectral and tissue Doppler, color flow Doppler, M-mode. Contrast: Contrast Enhancement was Employed: After initial imaging due tosub- optimal quality related to co-morbidity defined by patient's body habitus and dueto suboptimal image quality with inadequate visualization of at least 2 of 16 LV wallsegments in any view after initial imaging. Perflutren contrast was administered using thevolume necessary to obtain adequate images. 0.8 ml Optison Administered, (2.2 mlwasted). INDICATIONS: MVrepair, CABG, JOSELYN ligation. CONCLUSIONS: 1. Normal left ventricular size based on volume index. Concentric LVremodeling. The Ejection Fraction (Ayers's) is measured at 58 %. Left ventriculardiastolic function is indeterminate due to mitral valve repair or replacement. The averageglobal longitudinal strain is borderline. Paradoxical interventricular septal motionconsistent with prior cardiac or thoracic surgery. 2. Normal right ventricular size. Mild right ventricular hypokinesis. 3. No mitral regurgitation. The mean transmitral gradient is: 4 mmHg.Status post mitral valve repair with annuloplasty ring. 4. Normal pericardium without pericardial effusion. 5. Normal aortic root. 6. IVC is dilated. 7. Unable to determine PASP due to inadequate TR jet. ATTESTATION: I have personally reviewed and interpreted this study without fellow orresident. DISCLAIMER: The study images and the final report will be retained in the patientchart by the Echo Laboratory for the legally required time period. This chart constitutesthe legal record of any testing performed. FINDINGS: Left Ventricle: Normal left ventricular size based on volume index.Concentric LV remodeling. Normal left ventricular systolic function. The EjectionFraction (Ayers's) is measured at 58 %. Left ventricular diastolic function is indeterminatedue to mitral valve repair or replacement. The average global longitudinal strain isborderline. The LV global strain is: -16.9 %. Paradoxical interventricular septal motionconsistent with prior cardiac or thoracic surgery. Right Ventricle: Normal right ventricular size. Mild right ventricularhypokinesis. Left Atrium: The left atrium is normal in size. Right Atrium: The right atrium is normal in size. Mitral Valve: No mitral regurgitation. No stenosis present. The meantransmitral gradient is: 4 mmHg. Specific MV Structure Abnormalities: Status post mitral valverepair with annuloplasty ring. Aortic Valve: Trileaflet aortic valve. Mildly thickened aortic valveleaflets. No aortic regurgitation. No aortic valve stenosis. The mean transaortic gradient is5 mmHg. The aortic valve area by the continuity equation (using VTI) is 2.9 cm2.Aortic valve dimensionless index is 0.85. Tricuspid Valve: Normal tricuspid valve structure. No tricuspidregurgitation. No tricuspid valve stenosis. Pulmonic Valve: Normal pulmonic valve structure. No pulmonicregurgitation. No pulmonic valve stenosis present. Pericardium: Normal pericardium without pericardial effusion. Aorta: Normal aortic root. IVC: IVC is dilated. PASP: Unable to determine PASP due to inadequate TR jet. MEASUREMENTS: 2D/MM Value Range DopplerValue Range LVIDd 2D 4.9 cm [ 3.8 - 5.2 ] AV Peak Vel1.5 m/s [ 1.0 - 1.7 ] LVIDs 2D 2.7 cm [ 2.2 - 3.5 ] AV Peak PG9 mmHg IVSd 2D 1.1 cm [ 0.6 - 0.9 ] AV Mean PG5 mmHg LVPWd 2D 1.0 cm [ 0.6 - 0.9 ] AV VTI26 cm LV Thickness Ratio 1.1 LVOT Peak Vel1.2 m/s [ 0.7 - 1.1 ] LV FS 2D 45.49 % [ 27.00 - 45.00 ] LVOT Peak PG6 mmHg LV Mass 2D 191.86 g LVOT Mean PG3 mmHg LV Mass Index 2D 107.70 g/m2 LVOT VTI22 cm RWT 0.41 LVOT Diam2.1 cm EDV Mod BP 66 ml [ 46 - 106 ] KALEIGH VTI2.9 cm2 LV EDV Index 37 ml/m2 LVOT/AV VTI0.85 - Dimensionless index (DVI) ESV Mod BP 28 ml [ 14 - 42 ] MV E Peak Vel1.70 m/s [ 0.60 - 1.30 ] EF Mod BP 58 % [ 54 - 74 ] MV A Peak Vel0.55 m/s [ 1.00 - 1.20 ] LV GLS -16.9 % [ -25.0 - -18.0 ] MV E/A3.1 ratio [ 0.8 - 1.5 ] LA Length 4C 5.5 cm MV Peak Vel1.7 m/s LA Length 2C 5.1 cm MV Peak PG12 mmHg LA Volume BP 39 ml MV Mean PG4 mmHg LA Volume Index 22 ml/m2 [ 16 - 34 ] MV VTI44 cm RV Base Dimen 2D 3.9 cm [ 2.5 - 4.2 ] MV Decel [id number] TAPSE 1.3 cm [ 1.7 - 5.0 ] MV Decel [id number] msec [ 104 - 258 ] RA Volume 39 ml Med E` Vel5.3 cm/sec [ 8.0 - 25.0 ] RA Volume Index 22 ml/m2 Lat E` Vel6.1 cm/sec [ 10.0 - 25.0 ] IVC Diam 1.7 cm Average E/E`30 IVC Collapse 62.3 % RV S`10.6 cm/sec AoR Diam 2D 3.0 cm [ 2.7 - 3.7 ] PV Peak Vel1.4 m/s [ 0.4 - 0.8 ] Ao Root Index 1.7 cm/m2 [ 1.0 - 2.0 ] PV Peak PG8 mmHg Asc Ao Diam 2D3.1 cm Asc Ao Index1.7 cm/m2 Electronically Signed By: Janneth Willingham MD 01/24/2025 6:21:00 PM CDT Mary Alice Tello [place] [employer]OK[employer] ERECTOR AND SERVICER CV ECHO PROCEDURES Final R esult * Potassium, whole blood (01/24/2025 1:01 PM CDT) [facility] Potassium, bld 3.6 3.3 - 4.9 mmol/L Blood 01/24/2025 1:01 PM CDT 01/24/2025 1:13 PM CDT Mary Alice Tello [facility] LAB BLOOD ORDERABLES Final Result Performing Organization Address City/[facility]/ZIP Co de Phone Number [facility] Department [place] [employer] [place] [address] * Magnesium (01/24/2025 1:01 PM CDT) [facility] Magnesium 1.7 1.4 - 2.5 mg/dL Blood 01/24/2025 1:01 PM CDT 01/24/2025 1:14 PM CDT Mary Alice [facility] LAB BLOOD ORDERABLES Final Result [facility] [place] [employer] [place] [address] * ECG 12 lead (01/24/2025 12:41 PM CDT) [facility] Ventricular Rate EKG/Min 71 BPM [facility] QRS-Interval (MSEC) 86 ms [facility] QT-Interval (MSEC) 394 ms [facility] QTc 428 ms [facility] R [place] 35 degrees [facility] T [place] 55 degrees [facility] Diagnosis Normal sinus rhythm QS in V1 and V2, a nonspecific finding with multiple causes, including lead misplacement or septal infarction in 20% (cited on or before 24-JAN-2025) Poor r wave progression associated with abnormal lead placement, obesity, pulmonary disease, anterior infarction. Abnormal ECG When compared with ECG of 24-JAN-2025 09:02, no significant change Confirmed by GUSTAVO VIEYRA M.D ([id number]) on 01/25/2025 1:33:33 PM [facility] 01/24/2025 12:4 1 PM CDT 01/25/2025 1:33 PM CDT us Alla Youngblood [employer] ECG ORDERABLES Final Re sult Performing Organization Address City/[facility]/ZIP Co de Phone Number [facility] * ECG 12 lead (01/24/2025 9:02 AM CDT) Ventricular Rate EKG/Min 82 BPM [facility] Atrial Rate 82 BPM [facility] OH-Interval (MSEC) 184 ms [facility] QRS-Interval (MSEC) 78 ms [facility] QT-Interval (MSEC) 374 ms [facility] QTc 436 ms [facility] R [place] 40 degrees [facility] T [place] 66 degrees [facility] Diagnosis Normal sinus rhythm Anteroseptal infarct , age undetermined Abnormal ECG When compared with ECG of 22-JAN-2025 21:53, (unconfirmed) Sinus rhythm has replaced Atrial fibrillation Anteroseptal infarct is now Present Non-specific change in ST segment in Inferior leads Non-specific change in ST segment in Anterior leads Confirmed by XIOMARA GARCIA M.D ([id number]) on 01/24/2025 4:21:46 PM [facility] 01/24/2025 9:02 AM CDT 01/24/2025 4:21 PM CDT us Mary Alice Landeros [employer] ECG ORDERABLES Final Resu lt [facility] * XR Chest 1 View (01/23/2025 10:53 PM CDT) Anatomical Region Laterality Modality Body, Chest N/A Digital Radiogra phy 01/24/2025 8:55 AM CDT Impressions 01/24/2025 3:23 PM CDT The current study is compared with the prior radiograph dated 01/22/2025. Right peripherally inserted central catheter tip overlies the superior vena cava. Median sternotomy wires are in unchanged position. Mitral valve annuloplasty is seen again. Cervical hardware is partially imaged. There are epicardial pacing wires. Partially imaged ventriculoperitoneal shunt is seen again. The previously seen feeding tube has been removed. The cardiac mediastinal silhouette is unchanged. There are stable small bilateral pleural effusions with bibasilar opacities indicative of atelectasis. No pneumothorax. Dictated by: Canelo Luther M.D. The radiology attending physician has personally reviewed this study, and had reviewed and/or edited this written report and agrees with it. Electronically signed by: Doc Reyes M.D. Narrative 01/24/2025 3:23 PM CDT EXAMINATION: 1 view chest radiograph Procedure Note Doc Reyes MD - 01/24/2025 EXAMINATION: 1 view chest radiograph IMPRESSION: The current study is compared with the prior radiograph dated 01/22/2025. Right peripherally inserted central catheter tip overlies the superior vena cava. Median sternotomy wires are in unchanged position. Mitral valve annuloplasty is seen again. Cervical hardware is partially imaged. There are epicardial pacing wires. Partially imaged ventriculoperitoneal shunt is seen again. The previously seen feeding tube has been removed. The cardiac mediastinal silhouette is unchanged. There are stable small bilateral pleural effusions with bibasilar opacities indicative of atelectasis. No pneumothorax. Dictated by: Canelo Luther M.D. The radiology attending physician has personally reviewed this study, and had reviewed and/or edited this written report and agrees with it. Electronically signed by: Doc R. Reyes, M.D. us Brenna Chavez MD IMG XR PROCEDURES Final Result * (ABNORMAL) Troponin I high-sensitivity 2-hour (01/23/2025 9:13 PM CDT) Trop I hs 1,751(C) <=17 ng/L Comment: Previous critical value noted within 48 hours ago. Interpretive Data For further hscTnI resources including the diagnostic algorithm and an aid in interpretation, copy and paste this link: https://bjhlab.testcatalog.org/show/hsTrop-1 Current Interpretive Data last revised 2019. Trop I hs delta See Comment ng/L [facility] Comment:Inappropriate collec tion time to report a delta. Trop I hs pct delta See Comment % [facility] Comment:Inappropriate collec tion time to report a delta. Trop I hs interp See Comment [facility] Comment:Inappropriate collec tion time to report a delta. Blood 01/23/2025 9:13 PM CDT 01/23/2025 9:33 PM CDT Brenna Chavez MD LAB BLOOD ORDERABLES Final Resul t [facility] Department [place] [address] * (ABNORMAL) eGFR (01/23/2025 9:13 PM CDT) Pathologist [facility] [place] eGFR 49(L) >=60 mL/min/1. 73 m2 Comment: Interpretive Data Reference Interval Normal >/= 90 mL/min/1.73m2 Mildly decreased* 60 - 89 mL/min/1.73m2 Mildly to moderately decreased 45 - 59 mL/min/1.73m2 Moderately to severely decreased 30 - 44 mL/min/1.73m2 Severely decreased 15 - 29 mL/min/1.73m2 Kidney Failure < 15 mL/min/1.73m2 *Relative to young adult level Estimated glomerular filtration rate is determined by the 2020 CKD-EPI equation recommended by the National Kidney Foundation (A Unifying Approach to GFR Estimation: Recommendations of the NKF-ASK Task Force on Reassessing the Inclusion of Race in Diagnosing Kidney Disease, JASN 202). The CKD-EPI equation should not be used for patients with unstable renal function and has not been validated in children and those over 70. Current interpretive data was last reviewed 2021. Blood 01/23/2025 9:13 PM CDT 01/23/2025 9:33 PM CDT [facility]issa [facility] LAB BLOOD ORDERABLES Final Result [facility] Department [place] [address] * (ABNORMAL) CBC without differential (01/23/2025 9:13 PM CDT) WBC 11.31(H) 3.80 - 9.90 K/cumm Hgb 8.5(L) 11.9 - 15.5 g/dL [facility] Hct 25.7(L) 35.6 - 45.5 % [facility] Plt 109(L) 150 - 400 K/cumm [facility] MPV 11.0 9.1 - 12.3 fL [facility] RBC 2.84(L) 3.90 - 5.20 M/cumm [facility] MCV 90.5 81.3 - 96.4 fL [facility] MCH 29.9 27.1 - 33.3 pg [facility] MCHC 33.1 32.3 - 35.7 g/dL [facility] RDW CV 16.2(H) 11.1 - 14.9 % [facility] RDW SD 53.0(H) 35.7 - 48.1 fL [facility] NRBC abs 0.00 0.00 - 0.01 K/cumm [facility] Blood 01/23/2025 9:13 PM CDT 01/23/2025 9:33 PM CDT Charissa [facility] LAB BLOOD ORDERABLES Final Result [facility] Department [place] [address] * (ABNORMAL) Basic metabolic panel (01/23/2025 9:13 PM CDT) Sodium 135 135 - 145 mmol/L Potassium, pl 3.8 3.3 - 4.9 mmol/L [facility] Chloride 100 97 - 110 mmol/L [facility] CO2 26 22 - 32 mmol/L [facility] Anion gap 9 2 - 15 mmol/L [facility] BUN 16 6 - 25 mg/dL [facility] Creatinine 1.14(H) 0.60 - 1.10 mg/dL [facility] Glucose 104 70 - 199 mg/dL [facility] Comment: Interpretive Data Fasting glucose >/= 126 mg/dl is diagnostic for diabetes. Fasting is defined as no caloric intake for at least 8 hours. Fasting glucose between 100 mg/dl to 125 mg/dl is diagnostic of prediabetes. In a patient with classic symptoms of hyperglycemia or hyperglycemic crisis, a random glucose >/= 200 mg/dl is diagnostic for diabetes. In the absence of unequivocal hyperglycemia, results should be confirmed by repeat testing. The classification and Diagnosis of Diabetes Diabetes Care 2021; 46: S19-S40. Current interpretive data was last revised 2022. Calcium 8.8 8.5 - 10.3 mg/dL [facility] Blood 01/23/2025 9:13 PM CDT 01/23/2025 9:33 PM CDT Charissa [facility] LAB BLOOD ORDERABLES Final Result Performing Organization Address [facility] Co de Phone Number [facility] [place] [address] * Potassium, whole blood (01/23/2025 12:44 PM CDT) Potassium, bld 4.6 3.3 - 4.9 mmol/L Blood 01/23/2025 12:4 4 PM CDT 01/23/2025 12:53 PM CDT Mary Alice Landeros [employer] LAB BLOOD ORDERABLES Final Result Performing Organization Address City/[facility]/ZIP Co de Phone Number [facility] [place] [employer] [address] * Magnesium (01/23/2025 12:44 PM CDT) Pathologist [facility] [place] Magnesium 1.8 1.4 - 2.5 mg/dL Blood 01/23/2025 12:4 4 PM CDT 01/23/2025 12:57 PM CDT Mary Alice Tello [facility] LAB BLOOD ORDERABLES Final Result Performing Organization Address [facility] de Phone Number [facility] [employer] [place] [address] * (ABNORMAL) Troponin I high-sensitivity 6-hour (01/23/2025 3:56 AM CDT) Pathologist [facility] [place] Trop I hs 2,248(C) <=17 ng/L Comment: Previous critical value noted within 48 hours ago. Interpretive Data For further hscTnI resources including the diagnostic algorithm and an aid in interpretation, copy and paste this link: https://bjhlab.testcatalog.org/show/hsTrop-1 Current Interpretive Data last revised 2019. Trop I hs pct delta -1 % [facility] Comment:Previous critical va lue noted within 48 hours ago. Trop I hs interp Insignificant [facility] Comment:Previous critical va lue noted within 48 hours ago. Blood 01/23/2025 3:5 6 AM CDT 01/23/2025 4:21 AM CDT Brenna Chavez MD LAB BLOOD ORDERABLES Final Resul t Performing Organization Address [facility] Co de Phone Number [facility] [place] [employer] [place] [address] * (ABNORMAL) Troponin I high-sensitivity 4-hour (01/23/2025 2:23 AM CDT) Trop I hs 2,166(C) <=17 ng/L Comment: Previous critical value noted within 48 hours ago. Interpretive Data For further hscTnI resources including the diagnostic algorithm and an aid in interpretation, copy and paste this link: https://RVE.SOL - [employer] Ruralab.ViaCyte.org/show/hsTrop-[email or web address] Current Interpretive Data last revised 2019. Trop I hs pct delta -5 % [facility] Trop I hs interp Equivocal [facility] Blood 01/23/2025 2:23 AM CDT 01/23/2025 2:45 AM CDT Brenna Chavez MD LAB BLOOD ORDERABLES Final Resul t Performing Organization Address [facility] Co de Phone Number [facility] Department [place] [address] * (ABNORMAL) Troponin I high-sensitivity 2-hour (01/23/2025 12:09 AM CDT) Trop I hs 2,298(C) <=17 ng/L Comment: Previous critical value noted within 48 hours ago. Interpretive Data For further hscTnI resources including the diagnostic algorithm and an aid in interpretation, copy and paste this link: https://[email or web address].org/show/hsTrop-[email or web address] Current Interpretive Data last revised 2019. Trop I hs pct delta 1 % [facility] Comment:Previous critical va lue noted within 48 hours ago. Trop I hs interp Insignificant [facility] Comment:Previous critical va lue noted within 48 hours ago. Blood 01/23/2025 12:0 9 AM CDT 01/23/2025 12:25 AM CDT Brenna Chavez MD LAB BLOOD ORDERABLES Final Resul t Performing Organization Address [facility] Co de Phone Number [facility] [place] [address] * (ABNORMAL) Troponin I high-sensitivity series (baseline, 2hr, 4hr, 6hr) (01/22/2025 10:07 PM CDT) Trop I hs 2,274(C) <=17 ng/L Comment: Interpretive Data For further hscTnI resources including the diagnostic algorithm and an aid in interpretation, copy and paste this link: https://bjhlab.testcatalog.org/show/hsTrop-[email or web address] Current Interpretive Data last revised 2019. Blood 01/22/2025 10:0 7 PM CDT 01/22/2025 11:53 PM CDT us Brenna Chavez MD LAB BLOOD ORDERABLES Final Resul t Performing Organization Address City/[facility]/ZIP Co de Phone Number [facility] [place] [address] * Critical result callback Cardio chemistry (01/22/2025 10:07 PM CDT) [facility] Date Notified [id number] Time Notified 56 [facility] Test name Trop I hs base [facility] Called/Read Back Tonya [facility]LS [facility] Credentials ANGELICA [facility]LS [facility] Called By WOODY RAWLS [facility] Blood 01/22/2025 10:0 7 PM CDT 01/23/2025 12:11 AM CDT us Brenna Chavez MD LAB BLOOD [place]AB[place] [address] * ECG 12 lead (01/22/2025 9:53 PM CDT) Pathologist [facility] [place] Ventricular Rate EKG/Min 91 BPM [facility] QRS-Interval (MSEC) 82 ms [facility] QT-Interval (MSEC) 376 ms [facility] QTc 462 ms [facility] R [place] 44 degrees [facility] T [place] 71 degrees [facility] Diagnosis Atrial fibrillation with a competing junctional pacemaker with premature ventricular or aberrantly conducted complexes Abnormal ECG When compared with ECG of 11-FEB-2022 10:41, Atrial fibrillation has replaced Sinus rhythm Criteria for Anteroseptal infarct are no longer Present Non-specific change in ST segment in Anterior leads T wave inversion no longer evident in Lateral leads Confirmed by XIOMARA GARCIA M.D ([id number]) on 01/24/2025 4:08:37 PM [facility] 01/22/2025 9:53 PM CDT 01/24/2025 4:08 PM CDT us Brenna Chavez MD ECG ORDERABLES Final Result [facility] * (ABNORMAL) eGFR (01/22/2025 9:24 PM CDT) eGFR 51(L) >=60 mL/min/1. 73 m2 Comment: Interpretive Data Reference Interval Normal >/= 90 mL/min/1.73m2 Mildly decreased* 60 - 89 mL/min/1.73m2 Mildly to moderately decreased 45 - 59 mL/min/1.73m2 Moderately to severely decreased 30 - 44 mL/min/1.73m2 Severely decreased 15 - 29 mL/min/1.73m2 Kidney Failure < 15 mL/min/1.73m2 *Relative to young adult level Estimated glomerular filtration rate is determined by the 2020 CKD-EPI equation recommended by the National Kidney Foundation (A Unifying Approach to GFR Estimation: Recommendations of the NKF-ASK Task Force on Reassessing the Inclusion of Race in Diagnosing Kidney Disease, JASN 2020). The CKD-EPI equation should not be used for patients with unstable renal function and has not been validated in children and those over 70. Current interpretive data was last reviewed 2021. Blood 01/22/2025 9:24 PM CDT 01/22/2025 11:46 PM CDT us Charissa [facility]an [facility] LAB BLOOD ORDERABLES Final Result Performing Organization Address [facility]/ZIP Co de Phone Number [facility] [place] [address] * (ABNORMAL) CBC without differential (01/22/2025 9:24 PM CDT) Pathologist [facility] [place] WBC 9.02 3.80 - 9.90 K/cumm Hgb 8.1(L) 11.9 - 15.5 g/dL [facility] Hct 23.6(L) 35.6 - 45.5 % [facility] Plt 74(L) 150 - 400 K/cumm [facility] MPV 11.2 9.1 - 12.3 fL [facility] RBC 2.67(L) 3.90 - 5.20 M/cumm [facility] MCV 88.4 81.3 - 96.4 fL [facility] MCH 30.3 27.1 - 33.3 pg [facility] MCHC 34.3 32.3 - 35.7 g/dL [facility] RDW CV 16.2(H) 11.1 - 14.9 % [facility] RDW SD 52.0(H) 35.7 - 48.1 fL [facility] NRBC abs 0.04(H) 0.00 - 0.01 K/cumm [facility] Blood 01/22/2025 9:24 PM CDT 01/22/2025 11:46 PM CDT Charissa [facility]an [facility] LAB BLOOD ORDERABLES Final Result [facility] Department [place] [address] * (ABNORMAL) Basic metabolic panel (01/22/2025 9:24 PM CDT) Pathologist [facility] [place] Sodium 135 135 - 145 mmol/L Potassium, pl 2.8(L) 3.3 - 4.9 mmol/L [facility] Chloride 98 97 - 110 mmol/L [facility] CO2 26 22 - 32 mmol/L [facility] Anion gap 11 2 - 15 mmol/L [facility] BUN 17 6 - 25 mg/dL [facility] Creatinine 1.10 0.60 - 1.10 mg/dL [facility] Glucose 105 70 - 199 mg/dL [facility] Comment: Interpretive Data Fasting glucose >/= 126 mg/dl is diagnostic for diabetes. Fasting is defined as no caloric intake for at least 8 hours. Fasting glucose between 100 mg/dl to 125 mg/dl is diagnostic of prediabetes. In a patient with classic symptoms of hyperglycemia or hyperglycemic crisis, a random glucose >/= 200 mg/dl is diagnostic for diabetes. In the absence of unequivocal hyperglycemia, results should be confirmed by repeat testing. The classification and Diagnosis of Diabetes Diabetes Care 2021; 46: S19-S40. Current interpretive data was last revised 2022. Calcium 8.5 8.5 - 10.3 mg/dL [facility] Blood 01/22/2025 9:24 PM CDT 01/22/2025 11:46 PM CDT Charissa [facility] LAB BLOOD ORDERABLES Final Result [facility] Department [place] [address] * XR Chest 1 View (01/22/2025 11:04 AM CDT) Anatomical Region Laterality Modality Body, Chest N/A Computed Radiogr aphy 01/22/2025 3:30 PM CDT Impressions 01/22/2025 3:30 PM CDT Comparison to 01/20/2025. Enteric tube extends inferior to the [id number] the study, below the GE junction. Heart and mediastinum are unchanged status post median sternotomy. There are small bilateral pleural effusions with bibasilar opacities, increased from prior, likely increased atelectasis. No pneumothorax. Partially imaged ventriculoperitoneal shunt. Electronically signed by: Raymon Sinclair M.D. Narrative 01/22/2025 3:30 PM CDT EXAMINATION: 1 view chest radiograph Procedure Note Raymon Sinclair MD - 01/22/2025 EXAMINATION: 1 view chest radiograph IMPRESSION: Comparison to 01/20/2025. Enteric tube extends inferior to the gtvtt-tx-nnne the study, below the GE junction. Heart and mediastinum are unchanged status post median sternotomy. There are small bilateral pleural effusions with bibasilar opacities, increased from prior, likely increased atelectasis. No pneumothorax. Partially imaged ventriculoperitoneal shunt. Electronically signed by: Raymon Sinclair M.D. Mary Alice Landeros NP IMG XR PROCEDURES Final Re sult * XR Humerus Right 2 or More Views (01/22/2025 9:03 AM CDT) Anatomical Region Laterality Modality Upper Extremities, Upper Arm Right Com puted Radiography 01/22/2025 11:3 7 AM CDT Impressions 01/22/2025 11:37 AM CDT 1. Incompletely evaluated right peripherally inserted central venous catheter. Electronically signed by: Kenny Thompson MD, PHD Narrative 01/22/2025 11:37 AM CDT EXAMINATION: Right humerus 2+ views HISTORY: Peripherally inserted catheter placement FINDINGS: 2 AP radiographs of the right humerus demonstrate a peripherally inserted central venous catheter extending centrally at the level of the right 3rd rib. Acromioclavicular osteoarthritis present. Procedure Note Kenny Thompson MD PhD - 01/22/2025 EXAMINATION: Right humerus 2+ views HISTORY: Peripherally inserted catheter placement FINDINGS: 2 AP radiographs of the right humerus demonstrate a peripherally inserted central venous catheter extending centrally at the level of the right 3rd rib. Acromioclavicular osteoarthritis present. IMPRESSION: 1. Incompletely evaluated right peripherally inserted central venous catheter. Electronically signed by: Kenny Thompson MD, PHD Mary Alice Landeros [employer] SERVIC[employer] IMG XR PROCEDURES Final Re sult * (ABNORMAL) eGFR (01/21/2025 9:13 PM CDT) eGFR 56(L) >=60 mL/min/1. 73 m2 Comment: Interpretive Data Reference Interval Normal >/= 90 mL/min/1.73m2 Mildly decreased* 60 - 89 mL/min/1.73m2 Mildly to moderately decreased 45 - 59 mL/min/1.73m2 Moderately to severely decreased 30 - 44 mL/min/1.73m2 Severely decreased 15 - 29 mL/min/1.73m2 Kidney Failure < 15 mL/min/1.73m2 *Relative to young adult level Estimated glomerular filtration rate is determined by the 2020 CKD-EPI equation recommended by the National Kidney Foundation (A Unifying Approach to GFR Estimation: Recommendations of the NKF-ASK Task Force on Reassessing the Inclusion of Race in Diagnosing Kidney Disease, JASN 2020). The CKD-EPI equation should not be used for patients with unstable renal function and has not been validated in children and those over 70. Current interpretive data was last reviewed 2021. Blood 01/21/2025 9:13 PM CDT 01/21/2025 10:28 PM CDT us Charissa Beltran DNP LAB BLOOD ORDERABLES Final Result Performing Organization Address City/[facility]/ZIP Co de Phone Number [facility] [place] [address] * POCT glucose (01/21/2025 9:13 PM CDT) Pathologist [facility] [place] Glucose, POC 109 70 - 199 mg/dL Blood 01/21/2025 9:13 PM CDT 01/21/2025 9:13 PM CDT us Brenna Chavez MD LAB POCT ORDERABLES - DEVICE Fin al Result Performing Organization Address City/[facility]/ZIP Co de Phone Number [facility] Department [place] [address] * (ABNORMAL) CBC without differential (01/21/2025 9:13 PM CDT) [facility] WBC 12.41(H) 3.80 - 9.90 K/cumm Hgb 9.0(L) 11.9 - 15.5 g/dL [facility] Hct 25.0(L) 35.6 - 45.5 % [facility] Plt 71(L) 150 - 400 K/cumm [facility] MPV 11.6 9.1 - 12.3 fL [facility] RBC 2.82(L) 3.90 - 5.20 M/cumm [facility] MCV 88.7 81.3 - 96.4 fL [facility] MCH 31.9 27.1 - 33.3 pg [facility] MCHC 36.0(H) 32.3 - 35.7 g/dL [facility] RDW CV 16.2(H) 11.1 - 14.9 % [facility] RDW SD 53.1(H) 35.7 - 48.1 fL [facility] NRBC abs 0.08(H) 0.00 - 0.01 K/cumm [facility] Blood 01/21/2025 9:13 PM CDT 01/21/2025 10:28 PM CDT Charissa [facility]an [facility] LAB BLOOD ORDERABLES Final Result Performing Organization Address [facility] de Phone Number [facility] [place] [employer] [place] [address] * Phosphorus (01/21/2025 9:13 PM CDT) [facility] Phosphorus, pl 2.7 2.3 - 4.5 mg/dL Blood 01/21/2025 9:13 PM CDT 01/21/2025 10:28 PM CDT Charissa [facility] LAB BLOOD ORDERABLES Final Result Performing Organization Address [facility] Co de Phone Number [facility] [place] [address] * Magnesium (01/21/2025 9:13 PM CDT) Pathologist [facility] [place] Magnesium 2.0 1.4 - 2.5 mg/dL Blood 01/21/2025 9:13 PM CDT 01/21/2025 10:28 PM CDT [facility] LAB BLOOD ORDERABLES Final Result Performing Organization Address City/[facility]/ZIP Co de Phone Number [facility] [place] [address] * Basic metabolic panel (01/21/2025 9:13 PM CDT) Pathologist [facility] [facility] [place] Sodium 136 135 - 145 mmol/L Potassium, pl 3.7 3.3 - 4.9 mmol/L [facility] Chloride 100 97 - 110 mmol/L [facility] Comment:Repeated and verifie d. CO2 23 22 - 32 mmol/L [facility] Anion gap 13 2 - 15 mmol/L [facility] BUN 21 6 - 25 mg/dL [facility] Creatinine 1.02 0.60 - 1.10 mg/dL [facility] Glucose 98 70 - 199 mg/dL [facility] Comment: Interpretive Data Fasting glucose >/= 126 mg/dl is diagnostic for diabetes. Fasting is defined as no caloric intake for at least 8 hours. Fasting glucose between 100 mg/dl to 125 mg/dl is diagnostic of prediabetes. In a patient with classic symptoms of hyperglycemia or hyperglycemic crisis, a random glucose >/= 200 mg/dl is diagnostic for diabetes. In the absence of unequivocal hyperglycemia, results should be confirmed by repeat testing. The classification and Diagnosis of Diabetes Diabetes Care 202; 46: S19-S40. Current interpretive data was last revised 2022. Calcium 8.8 8.5 - 10.3 mg/dL [facility] Blood 01/21/2025 9:13 PM CDT 01/21/2025 10:28 PM CDT [facility] LAB BLOOD ORDERABLES Final Result Performing Organization Address [facility]/State/[facility] [place] [address] * POCT glucose (01/21/2025 3:06 PM CDT) Glucose, POC 132 70 - 199 mg/dL Blood 01/21/2025 3:06 PM CDT 01/21/2025 3:06 PM CDT Brenna Chavez MD LAB POCT ORDERABLES - DEVICE Fin al Result Performing Organization Address [facility] [place] [address] * POCT glucose (01/21/2025 12:19 PM CDT) Glucose, POC 132 70 - 199 mg/dL Blood 01/21/2025 12:1 9 PM CDT 01/21/2025 12:19 PM CDT Brenna Chavez MD LAB POCT ORDERABLES - DEVICE Fin al Result Performing Organization Address [facility] Co de Phone Number [facility] [place] [address] * POCT glucose (01/21/2025 7:37 AM CDT) Glucose, POC 103 70 - 199 mg/dL Blood 01/21/2025 7:37 AM CDT 01/21/2025 7:37 AM CDT Brenna Chavez MD LAB POCT ORDERABLES - DEVICE Fin al Result Performing Organization Address City/[facility] Co de Phone Number [facility] [place] [address] * Critical Care (01/21/2025 6:20 AM CDT) Narrative Mary Grider MD - 01/21/2025 6:20 AM CDT Mary Grider MD 01/21/2025 1:59 PM Critical Care Performed by: Amina House NP Authorized by: Amina House NP CRITICAL CARE: Team: 56 CTICU Shift: AM Level of Billing: Subsequent Hospital Visit Level 3 My time spent with this patient was 60 minutes: Critical Provider Statement: I have seen and examined the patient on this day of service. I have reviewed and confirmed the history, physical exam, laboratory, and radiographic data as documented in the ICU note. I have reviewed and discussed my treatment plan with the patient's team and other medical/sephora product consultant staff. This time was in addition to and separate from care provided by other practitioners on this day of service. I spent time reviewing and interpreting data from bedside monitors, laboratory results, and imaging and I spent time discussing the management of this critically ill patient with consultants and the medical staff us Amina House [employer]OKER ERECTOR AND SERVICER IN CLINIC/BEDSIDE ORDERA BLES Final Result * POCT glucose (01/21/2025 3:33 AM CDT) Glucose, POC 116 70 - 199 mg/dL Blood 01/21/2025 3:33 AM CDT 01/21/2025 3:33 AM CDT Brenna Chavez MD LAB POCT ORDERABLES - DEVICE Fin al Result Performing Organization Address City/[facility] Co de Phone Number [facility] Department [place] [address] * POCT glucose (01/20/2025 11:57 PM CDT) Glucose, POC 142 70 - 199 mg/dL Blood 01/20/2025 11:5 7 PM CDT 01/20/2025 11:57 PM CDT Brenna Chavez MD LAB POCT ORDERABLES - DEVICE Fin al Result Performing Organization Address City/[facility] de Phone Number [facility] Department [place] [address] * (ABNORMAL) eGFR (01/20/2025 10:03 PM CDT) Pathologist [facility], [place] eGFR 57(L) >=60 mL/min/1. 73 m2 Comment: Interpretive Data Reference Interval Normal >/= 90 mL/min/1.73m2 Mildly decreased* 60 - 89 mL/min/1.73m2 Mildly to moderately decreased 45 - 59 mL/min/1.73m2 Moderately to severely decreased 30 - 44 mL/min/1.73m2 Severely decreased 15 - 29 mL/min/1.73m2 Kidney Failure < 15 mL/min/1.73m2 *Relative to young adult level Estimated glomerular filtration rate is determined by the 2020 CKD-EPI equation recommended by the National Kidney Foundation (A Unifying Approach to GFR Estimation: Recommendations of the NKF-ASK Task Force on Reassessing the Inclusion of Race in Diagnosing Kidney Disease, JASN 2020). The CKD-EPI equation should not be used for patients with unstable renal function and has not been validated in children and those over 70. Current interpretive data was last reviewed 2021. Blood 01/20/2025 10:0 3 PM CDT 01/20/2025 10:21 PM CDT Alla Youngblood NP LAB BLOOD ORDERABLES Fin al Result Performing Organization Address [facility] de Phone Number [facility] Department [place] [address] * (ABNORMAL) CBC without differential (01/20/2025 10:03 PM CDT) Pathologist [facility] [place] WBC 11.00(H) 3.80 - 9.90 K/cumm Hgb 8.6(L) 11.9 - 15.5 g/dL [facility] Hct 24.1(L) 35.6 - 45.5 % [facility] Plt 58(L) 150 - 400 K/cumm [facility] MPV 10.8 9.1 - 12.3 fL [facility] RBC 2.80(L) 3.90 - 5.20 M/cumm [facility] MCV 86.1 81.3 - 96.4 fL [facility] MCH 30.7 27.1 - 33.3 pg [facility] MCHC 35.7 32.3 - 35.7 g/dL [facility] RDW CV 15.9(H) 11.1 - 14.9 % [facility] RDW SD 50.1(H) 35.7 - 48.1 fL [facility] NRBC abs 0.05(H) 0.00 - 0.01 K/cumm [facility] Blood 01/20/2025 10:0 3 PM CDT 01/20/2025 10:21 PM CDT Alla Youngblood LAB BLOOD ORDERABLES Fin al Result Performing Organization Address City/[facility] Co de Phone Number [facility] Department [place] [employer] [place] [address] * Type and screen (01/20/2025 10:03 PM CDT) Pathologist [facility] [place] ABO Rh O Negative Daly, indirect Negative [facility] Blood 01/20/2025 10:0 3 PM CDT 01/20/2025 10:17 PM CDT Narrative [facility] - 01/20/2025 11:06 PM CDT Has the patient had Daratumumab or Isatuximab in the past 6 months?->Unknown Alla Youngblood [employer] E[employer]OR [employer] SERVICER LAB BLOOD BANK TEST ORDE RABLES Final Result Performing Organization Address City/[facility]/ZIP Co de Phone Number [facility] [place] [employer] [place] [address] * (ABNORMAL) Phosphorus (01/20/2025 10:03 PM CDT) Phosphorus, pl 1.9(L) 2.3 - 4.5 mg/dL Blood 01/20/2025 10:0 3 PM CDT 01/20/2025 10:21 PM CDT [facility] [employer] SERVIC[employer] LAB BLOOD ORDERABLES Fin al Result Performing Organization Address City/[facility] Co de Phone Number [facility] Department [place] [address] * Magnesium (01/20/2025 10:03 PM CDT) Pathologist [facility] [place] Magnesium 2.2 1.4 - 2.5 mg/dL Blood 01/20/2025 10:0 3 PM CDT 01/20/2025 10:21 PM CDT [facility] LAB BLOOD ORDERABLES Fin al Result Performing Organization Address [facility] de Phone Number [facility] Department [place] [address] * Basic metabolic panel (01/20/2025 10:03 PM CDT) [facility] Sodium 137 135 - 145 mmol/L Potassium, pl 4.0 3.3 - 4.9 mmol/L [facility] Chloride 106 97 - 110 mmol/L [facility] CO2 22 22 - 32 mmol/L [facility] Anion gap 9 2 - 15 mmol/L [facility] BUN 22 6 - 25 mg/dL [facility] Creatinine 1.01 0.60 - 1.10 mg/dL [facility] Glucose 124 70 - 199 mg/dL [facility] Comment: Interpretive Data Fasting glucose >/= 126 mg/dl is diagnostic for diabetes. Fasting is defined as no caloric intake for at least 8 hours. Fasting glucose between 100 mg/dl to 125 mg/dl is diagnostic of prediabetes. In a patient with classic symptoms of hyperglycemia or hyperglycemic crisis, a random glucose >/= 200 mg/dl is diagnostic for diabetes. In the absence of unequivocal hyperglycemia, results should be confirmed by repeat testing. The classification and Diagnosis of Diabetes Diabetes Care 202; 46: S19-S40. Current interpretive data was last revised 2022. Calcium 8.5 8.5 - 10.3 mg/dL [facility] Blood 01/20/2025 10:0 3 PM CDT 01/20/2025 10:21 PM CDT Alla Lagunas Rylie [employer]OK[employer] E[employer]OR [employer] SERVICER LAB BLOOD ORDERABLES Fin al Result [facility] Department [place] [address] * XR Chest 1 View - in PM (01/20/2025 9:22 PM CDT) Anatomical Region Laterality Modality Body, Chest N/A Digital Radiogra phy 01/21/2025 9:18 AM CDT Impressions 01/21/2025 9:26 AM CDT The current study is compared with the prior radiograph dated 01/19/2025. A right internal jugular catheter is in place, tip overlies the superior vena cava. A right peripherally inserted central catheter is in place, tip overlies the superior vena cava. A feeding tube extends below the level of the hemidiaphragm. The patient is status post a median sternotomy, mediastinal wires are aligned. 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 Partially imaged epicardial pacing wires present. Partially imaged cervical hardware, in unchanged position. Left posterior layering effusion, stable. New right posterior layering pleural effusion. Bibasilar atelectasis, similar to prior. No pneumothorax. Stable cardiac mediastinal silhouette. Dictated by: Torri Doshi M.D. The radiology attending physician has personally reviewed this study, and had reviewed and/or edited this written report and agrees with it. Electronically signed by: Papo Tyler M.D. Narrative 01/21/2025 9:26 AM CDT EXAMINATION: 1 view chest radiograph Procedure Note Papo Tyler MD - 01/21/2025 EXAMINATION: 1 view chest radiograph IMPRESSION: The current study is compared with the prior radiograph dated 01/19/2025. A right internal jugular catheter is in place, tip overlies the superior vena cava. A right peripherally inserted central catheter is in place, tip overlies the superior vena cava. A feeding tube extends below the level of the hemidiaphragm. The patient is status post a median sternotomy, mediastinal wires are aligned. 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 Partially imaged epicardial pacing wires present. Partially imaged cervical hardware, in unchanged position. Left posterior layering effusion, stable. New right posterior layering pleural effusion. Bibasilar atelectasis, similar to prior. No pneumothorax. Stable cardiac mediastinal silhouette. Dictated by: Torri Doshi M.D. The radiology attending physician has personally reviewed this study, and had reviewed and/or edited this written report and agrees with it. Electronically signed by: Papo Tyler M.D. Alla Youngblood STOKER ERECTOR AND SERVICER IMG XR PROCEDURES Final Result * POCT glucose (01/20/2025 7:57 PM CDT) [facility] Signature Glucose, POC 121 70 - 199 mg/dL Blood 01/20/2025 7:57 PM CDT 01/20/2025 7:57 PM CDT Brenna Chavez MD LAB POCT ORDERABLES - DEVICE Fin al Result [facility] Department [place] [address] * Critical Care (01/20/2025 6:44 PM CDT) Narrative Mary Grider MD - 01/20/2025 6:44 PM CDT Mary Grider MD 01/21/2025 10:59 AM Critical Care Performed by: Vanessa Cobian DNP Authorized by: Vanessa Cobian DNP CRITICAL CARE: Team: 56 CTICU Shift: PM Level of Billing: Critical Care My time spent with this patient was 75 minutes: Critical Provider Statement: I have seen and examined the patient on this day of service. I have reviewed and confirmed the history, physical exam, laboratory and radiologic data as documented in the signed ICU note. I have reviewed and discussed my treatment plan with the ICU team and other medical/sephora product consultant staff, making frequent assessments and decisions regarding this patient's complex medical care. Critical Care time was exclusive of time spent performing separately billed procedures, treating other patients, and teaching. This time was in addition to and separate from critical care provided by other practitioners in my group on this day of service. Critical Care was necessary to treat or prevent imminent or life-threatening deterioration of the following conditions: I spent time reviewing and interpreting data from bedside monitors, laboratory results, and imaging, I spent time discussing the management of this critically ill patient with consultants and the medical staff and I spent time documenting in the medical record us Vanessa Cobian DNP IN CLINIC/BEDSIDE ORDERABLES Final Result * POCT glucose (01/20/2025 3:11 PM CDT) Glucose, POC 122 70 - 199 mg/dL Blood 01/20/2025 3:11 PM CDT 01/20/2025 3:11 PM CDT us Brenna Chavez MD LAB POCT ORDERABLES - DEVICE Fin al Result [facility] Department [place] [address] * FL Modified Barium Swallow W Video (01/20/2025 2:08 PM CDT) Anatomical Region Laterality Modality Head and Neck N/A Radio Fluoroscop y 01/20/2025 2:31 PM CDT Impressions 01/21/2025 8:12 AM CDT The swallowing mechanism is normal; see above comments. Please refer to the Speech Pathology procedure note for safe swallow recommendations as well as additional information regarding the oral-pharyngeal swallow function, plan of care, and recommended follow up. Dictated by: Flor Whitaker M.D. The radiology attending physician has personally reviewed this study, and had reviewed and/or edited this written report and agrees with it. Electronically signed by: Ruchi Martniez M.D. Narrative 01/21/2025 8:12 AM CDT EXAMINATION: MODIFIED BARIUM SWALLOW HISTORY: Dysphagia. TECHNIQUE: This procedure was completed in conjunction with a Speech Language Pathologist. The patient was given barium of multiple different consistencies to swallow. Video fluoroscopy was employed during the exam. FINDINGS: Oral-pharyngeal swallow function is normal. Penetration: No Aspiration: No Residue:No Other comments: Small osteophyte at the level of C3/C4 spinal hardware may be contributing to mildly reduced upper esophageal opening. Procedure Note Ruchi Martinez MD - 01/21/2025 EXAMINATION: MODIFIED BARIUM SWALLOW HISTORY: Dysphagia. TECHNIQUE: This procedure was completed in conjunction with a Speech Language Pathologist. The patient was given barium of multiple different consistencies to swallow. Video fluoroscopy was employed during the exam. FINDINGS: Oral-pharyngeal swallow function is normal. Penetration: No Aspiration: No Residue:No Other comments: Small osteophyte at the level of C3/C4 spinal hardware may be contributing to mildly reduced upper esophageal opening. IMPRESSION: The swallowing mechanism is normal; see above comments. Please refer to the Speech Pathology procedure note for safe swallow recommendations as well as additional information regarding the oral-pharyngeal swallow function, plan of care, and recommended follow up. Dictated by: Flor Whitaker M.D. The radiology attending physician has personally reviewed this study, and had reviewed and/or edited this written report and agrees with it. Electronically signed by: Ruchi Martinez M.D. Alla STEWART IMG FLUOROSCOPY PROCEDU RES Final Result * SENIOR QUALITY TECHNICIAN Evaluate and Treat (VFSS) (01/20/2025 2:04 PM CDT) Narrative Yuli Aguilera SLP - 01/20/2025 2:04 PM CDT Yuli Aguilera SLP 01/20/2025 5:07 PM Speech-Language Pathology: Videofluoroscopic Study of Swallow (VFSS/MBS) [facility] 79 y.o. 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 Her course has otherwise been notable for acute on chronic hyponatremia (resolved), acute hypoxemic respiratory failure, and leukopenia followed by leukocytosis. 01/01: bMRI w/ multiple punctate infarcts in the left cerebellum, right medial thalamus, right superior frontal lobe, subdural empyema, spinal MRI with osteomyelitis 01/07: JANELLE w/ large vegetation on posterior leaflet with mild MR, preserved LVEF 01/11: Acute AMS, code stroke, HCT negative 01/13: LHC w/ LAD and ostial lesions 01/17: MVr (28 mm ring), patch repair of abscess cavity, and CABG x2 (SVG sequenced to LAD and diagonal), JOSELYN ligation No documented isael swallow screen. Respiratory/Intubation Status: 01/17, now RA Imaging: CXR (01/17)- New patchy left retrocardiac opacity most compatible with atelectasis. No pulmonary edema seen. No pneumothorax or pleural effusion seen. HCT (01/18)- 1. Right frontal approach ventriculostomy catheter in unchanged position and no significant interval change in ventriculomegaly when compared to CT 01/11/2025. 2. Trace decreasing bilateral frontal convexity subdural collections. No new intracranial hemorrhage BMRI (01/08)- 1. 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 The previously seen punctate infarct also visualized. These are likely to represent embolic source. 2. Right frontal approach ventriculostomy catheter with interval mild worsening of the dilatation of lateral and third ventricle. 3. Pachymeningeal enhancement. 4. Subdural enhancing collection at C1-C2 level likely representing subdural empyema. However the images are degraded by motion and not well evaluated. These findings were present on the prior scan and have not significantly changed. Precautions: fall PLOF: Cognistat 01/11: WFL despite lethargy CSE BJ 01/10: Rec'd reg/reg CSE OSH 12/30: Rec'd reg/reg Current Diet Order: NPO, FT Baseline Diet: regular/regular, per pt report General Information Venkatesh Zaldivar 01/20/25 SENIOR QUALITY TECHNICIAN Received On: 01/20/25 General Observations: Pt reclined at ~45 degrees in the chair 2/2 pain, alert, remains confused (in BUE mitts) but followed basic commands. Reason for Referral: c/f aspiration Pain Score: (yes, RN present) If pain >4, was RN notified? N/A Patient Stated Goal/Comments: to drink water Clinical Impression & Professional Recommendations Diet Solids Recommendation: Regular Diet Liquids Recommendations: Thin/regular Recommended Form of Medications: As tolerated Compensatory Strategies/Modifications: Alternate solids and liquids, Single sips, Small bites, Slow rate Postural Recommendations: Upright (>45 degrees) Assistance with feeding/swallowing: Assist with aggressive oral hygiene prior to po, One to one assist with meals (until mental status improves) Specialty Instructions: none Overall Clinical Impression/Additional Information: The oral and pharyngeal phases of the pt's swallow are WFL. Pt with extended mastication of dry solid but independently requested liquid wash. Premature loss observed with thin liquids to the pyriform sinuses and occasionally into the laryngeal vestibule (representing penetration before the swallow). Pt with frequent shallow to moderate depth penetration with thin liquids. Penetration was either flash or cleared with subsequent swallows. No aspiration was visualized with any consistencies or volumes. After the swallow, no notable residue remained. Of note, pt with bony protrusion over there spinal hardware that appeared to impede full UES relaxation. Assessment Details & Results Purpose and Procedure of Videofluoroscopic Study of Swallow: Videofluoroscopic Study of Swallow completed to assess oropharyngeal swallow function and safety/efficiency of the swallow so that diet recommendations can be made. This test is completed in conjunction with Radiology. Results of this test are indicative of performance at the time of the exam. Standard procedure is in lateral view at 90 degrees. Consistencies Administered: Thin liquids, Purees, Solids Administered consistencies contain barium product. Thin Liquids: Laryngeal Penetration: Present Aspiration Present: No Successful Modifications : Repeat swallow Unsuccessful Modifications: None Penetration Aspiration Scale-Thin: 3-Material enters the airway, remains above the vocal folds and is not ejected from the airway Purees: Laryngeal Penetration: None Aspiration Present: No Penetration Aspiration Scale-Puree: 1-Material does not enter airway Solids: Laryngeal Penetration: None Aspiration Present: No Penetration Aspiration Scale-Solids: 1-Material does not enter airway MBSImp: MBSImp Results: Lip closure : 0-No labial escape Tongue Control with Bolus Hold: 2-Posterior escape of less than half of bolus Bolus Preparation/Mastication : 1-Slow prolonged chewing/mashing with complete re-collection Bolus Transport/Lingual Motion : 0-Brisk tongue motion Oral Residue: 2-Residue collection on oral structures Initiation of Pharyngeal Swallow : 3-Bolus head in pyriforms Soft Palate : 0-No bolus between soft palate and pharyngeal wall Laryngeal Elevation : 1-Partial superior movement of thyroid cartilage with partial approximation of arytenoids to epiglottic petiole Anterior Hyoid Excursion: 1-Partial anterior movement Epiglottic Movement: 1-Partial inversion Laryngeal Vestibular Closure: 1-Incomplete, narrow column of air/contrast in laryngeal vestibule Pharyngeal Stripping Wave: 0-Present and complete Pharyngeal Contraction (AP view only): Not assessed, No AP view Pharyngoesophageal Segment Opening : 1-Partial distension/partial duration, partial obstruction of flow Tongue Base Retraction : 1-Trace column of contrast or air between tongue base and posterior pharyngeal wall (normal variant) Pharyngeal Residue : 1-Trace residue within or on pharyngeal structures (normal variant) Esophageal Clearance (upright position): Not assessed, No AP view Dysphagia Outcome and Severity Scale: Dysphagia Outcomes and Severity Scale: 7 Normal Levels 1 & 2 on the KESHIA indicate need for nonoral nutrition. Treatment Treatment was not provided this date. Please reference care plan for treatment goals and details, if indicated. Plan SENIOR QUALITY TECHNICIAN Frequency of Services during current admission: Discharge from this Service SENIOR QUALITY TECHNICIAN Recommendation (Add'l Services): No further SENIOR QUALITY TECHNICIAN indicated Next Visit Plan: No further ST warranted Additional Referrals: RD f/u (notified of results) Discharge Summary Statement If this is the last swallow therapy visit, this serves as the discharge summary. Alla STEWART SENIOR QUALITY TECHNICIAN ORDERABLES Final R esult * SENIOR QUALITY TECHNICIAN Evaluation and Treatment (01/20/2025 2:04 PM CDT) Narrative Yuli Aguilera SLP - 01/20/2025 2:04 PM CDT Yuli Aguilera SLP 01/20/2025 5:07 PM Speech-Language Pathology: Videofluoroscopic Study of Swallow (VFSS/MBS) [facility] 79 y.o. 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 Her course has otherwise been notable for acute on chronic hyponatremia (resolved), acute hypoxemic respiratory failure, and leukopenia followed by leukocytosis. 01/01: bMRI w/ multiple punctate infarcts in the left cerebellum, right medial thalamus, right superior frontal lobe, subdural empyema, spinal MRI with osteomyelitis 01/07: JANELLE w/ large vegetation on posterior leaflet with mild MR, preserved LVEF 01/11: Acute AMS, code stroke, HCT negative 01/13: LHC w/ LAD and ostial lesions 01/17: MVr (28 mm ring), patch repair of abscess cavity, and CABG x2 (SVG sequenced to LAD and diagonal), JOSELYN ligation No documented isael swallow screen. Respiratory/Intubation Status: 01/17, now RA Imaging: CXR (01/17)- New patchy left retrocardiac opacity most compatible with atelectasis. No pulmonary edema seen. No pneumothorax or pleural effusion seen. HCT (01/18)- 1. Right frontal approach ventriculostomy catheter in unchanged position and no significant interval change in ventriculomegaly when compared to CT 01/11/2025. 2. Trace decreasing bilateral frontal convexity subdural collections. No new intracranial hemorrhage BMRI (01/08)- 1. 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 The previously seen punctate infarct also visualized. These are likely to represent embolic source. 2. Right frontal approach ventriculostomy catheter with interval mild worsening of the dilatation of lateral and third ventricle. 3. Pachymeningeal enhancement. 4. Subdural enhancing collection at C1-C2 level likely representing subdural empyema. However the images are degraded by motion and not well evaluated. These findings were present on the prior scan and have not significantly changed. Precautions: fall PLOF: Cognistat 01/11: WFL despite lethargy CSE BJ 01/10: Rec'd reg/reg CSE OSH 12/30: Rec'd reg/reg Current Diet Order: NPO, FT Baseline Diet: regular/regular, per pt report General Information Venkatesh Zaldivar 01/20/25 SENIOR QUALITY TECHNICIAN Received On: 01/20/25 General Observations: Pt reclined at ~45 degrees in the chair 2/2 pain, alert, remains confused (in BUE mitts) but followed basic commands. Reason for Referral: c/f aspiration Pain Score: (yes, RN present) If pain >4, was RN notified? N/A Patient Stated Goal/Comments: to drink water Clinical Impression & Professional Recommendations Diet Solids Recommendation: Regular Diet Liquids Recommendations: Thin/regular Recommended Form of Medications: As tolerated Compensatory Strategies/Modifications: Alternate solids and liquids, Single sips, Small bites, Slow rate Postural Recommendations: Upright (>45 degrees) Assistance with feeding/swallowing: Assist with aggressive oral hygiene prior to po, One to one assist with meals (until mental status improves) Specialty Instructions: none Overall Clinical Impression/Additional Information: The oral and pharyngeal phases of the pt's swallow are WFL. Pt with extended mastication of dry solid but independently requested liquid wash. Premature loss observed with thin liquids to the pyriform sinuses and occasionally into the laryngeal vestibule (representing penetration before the swallow). Pt with frequent shallow to moderate depth penetration with thin liquids. Penetration was either flash or cleared with subsequent swallows. No aspiration was visualized with any consistencies or volumes. After the swallow, no notable residue remained. Of note, pt with bony protrusion over there spinal hardware that appeared to impede full UES relaxation. Assessment Details & Results Purpose and Procedure of Videofluoroscopic Study of Swallow: Videofluoroscopic Study of Swallow completed to assess oropharyngeal swallow function and safety/efficiency of the swallow so that diet recommendations can be made. This test is completed in conjunction with Radiology. Results of this test are indicative of performance at the time of the exam. Standard procedure is in lateral view at 90 degrees. Consistencies Administered: Thin liquids, Purees, Solids Administered consistencies contain barium product. Thin Liquids: Laryngeal Penetration: Present Aspiration Present: No Successful Modifications : Repeat swallow Unsuccessful Modifications: None Penetration Aspiration Scale-Thin: 3-Material enters the airway, remains above the vocal folds and is not ejected from the airway Purees: Laryngeal Penetration: None Aspiration Present: No Penetration Aspiration Scale-Puree: 1-Material does not enter airway Solids: Laryngeal Penetration: None Aspiration Present: No Penetration Aspiration Scale-Solids: 1-Material does not enter airway MBSImp: MBSImp Results: Lip closure : 0-No labial escape Tongue Control with Bolus Hold: 2-Posterior escape of less than half of bolus Bolus Preparation/Mastication : 1-Slow prolonged chewing/mashing with complete re-collection Bolus Transport/Lingual Motion : 0-Brisk tongue motion Oral Residue: 2-Residue collection on oral structures Initiation of Pharyngeal Swallow : 3-Bolus head in pyriforms Soft Palate : 0-No bolus between soft palate and pharyngeal wall Laryngeal Elevation : 1-Partial superior movement of thyroid cartilage with partial approximation of arytenoids to epiglottic petiole Anterior Hyoid Excursion: 1-Partial anterior movement Epiglottic Movement: 1-Partial inversion Laryngeal Vestibular Closure: 1-Incomplete, narrow column of air/contrast in laryngeal vestibule Pharyngeal Stripping Wave: 0-Present and complete Pharyngeal Contraction (AP view only): Not assessed, No AP view Pharyngoesophageal Segment Opening : 1-Partial distension/partial duration, partial obstruction of flow Tongue Base Retraction : 1-Trace column of contrast or air between tongue base and posterior pharyngeal wall (normal variant) Pharyngeal Residue : 1-Trace residue within or on pharyngeal structures (normal variant) Esophageal Clearance (upright position): Not assessed, No AP view Dysphagia Outcome and Severity Scale: Dysphagia Outcomes and Severity Scale: 7 Normal Levels 1 & 2 on the KESHIA indicate need for nonoral nutrition. Treatment Treatment was not provided this date. Please reference care plan for treatment goals and details, if indicated. Plan SENIOR QUALITY TECHNICIAN Frequency of Services during current admission: Discharge from this Service SENIOR QUALITY TECHNICIAN Recommendation (Add'l Services): No further SENIOR QUALITY TECHNICIAN indicated Next Visit Plan: No further ST warranted Additional Referrals: RD f/u (notified of results) Discharge Summary Statement If this is the last swallow therapy visit, this serves as the discharge summary. us Lina Doshi NP SENIOR QUALITY TECHNICIAN ORDERABLES Final R esult * POCT glucose (01/20/2025 11:50 AM CDT) Glucose, POC 140 70 - 199 mg/dL Blood 01/20/2025 11:5 0 AM CDT 01/20/2025 11:50 AM CDT us Brenna Chavez MD LAB POCT ORDERABLES - DEVICE Fin al Result [facility] Department [place] [address] * (ABNORMAL) CBC without differential (01/20/2025 11:50 AM CDT) WBC 11.36(H) 3.80 - 9.90 K/cumm Hgb 8.7(L) 11.9 - 15.5 g/dL [facility] Hct 24.6(L) 35.6 - 45.5 % [facility] Plt 62(L) 150 - 400 K/cumm [facility] MPV 10.8 9.1 - 12.3 fL [facility] RBC 2.86(L) 3.90 - 5.20 M/cumm [facility] MCV 86.0 81.3 - 96.4 fL [facility] MCH 30.4 27.1 - 33.3 pg [facility] MCHC 35.4 32.3 - 35.7 g/dL [facility] RDW CV 15.9(H) 11.1 - 14.9 % [facility] RDW SD 49.3(H) 35.7 - 48.1 fL [facility] NRBC abs 0.03(H) 0.00 - 0.01 K/cumm [facility] Blood 01/20/2025 11:5 0 AM CDT 01/20/2025 12:23 PM CDT Fredrick Fay NP LAB BLOOD ORDERABLES Sheila l Result Performing Organization Address City/[facility] Co de Phone Number [facility] Department [place] [employer] [place] [address] * Transfuse RBC (01/20/2025 8:51 AM CDT) Blood Fredrick Fay NP BLOOD TRANSFUSION ORDERAB LES Final Result [facility] Department [place] [employer] [place] [address] * (ABNORMAL) POC Blood Gas and Chemistries, Arterial - (01/20/2025 7:23 AM CDT) Pathologist [facility] [place] pH, Art POC 7.43 7.35 - 7.45 pCO2, Art POC 33(L) 35 - 45 mmHg [facility] pO2, Art POC 94 83 - 108 mmHg [facility] Na, POC 136 135 - 145 mmol/L [facility] K POC 4.0 3.3 - 4.9 mmol/L [facility] Comment: Interpretive Data Not all point of care methods assess for hemolysis. Confirm with instrument and retest K+ if not consistent with clinical signs and symptoms. Current Interpretive Data was last revised on 2023. Cl, POC 108 97 - 110 mmol/L [facility] Ionized Ca, POC 4.85 4.50 - 5.10 mg/dL [facility] Glucose, POC 129 70 - 199 mg/dL [facility] Lactate POC 1.3 0.7 - 2.0 mmol/L [facility] SO2 (edd) arterial 99(H) 90 - 95 % [facility] Base excess, POC -2.2 mmol/L [facility] HCO3, Art POC 22 20 - 30 mmol/L [facility] Hct, POC 20.0(L) 36.3 - 45.3 % [facility] Total Hb, POC 6.7(L) 11.9 - 15.5 g/dL [facility] Blood 01/20/2025 7:23 AM CDT 01/20/2025 7:23 AM CDT us Brenna Chavez MD LAB POCT ORDERABLES - DEVICE Fin al Result [facility] Department [place] [address] * Prepare RBC: 1 Units (01/20/2025 7:12 AM CDT) Product code [id number] Unit Number [id number] [facility] Product Blood Type ONEG [facility] Dispense Status PRESUMED TRANSFUSED [facility] Blood 01/20/2025 7:12 AM CDT 01/20/2025 7:12 AM CDT Narrative [facility] - 01/20/2025 8:01 PM CDT Are special requirements needed? (All products are leukoreduced and CMV- safe)- >No Date required:-[id number] LRRBC # of [id number] Reasons:-Cardiovascular disease, Hgb <8 g/dL} Fredrick Fay NP BLOOD BANK PRODUCT ORDERA BLES Final Result Performing Organization Address [facility] Co de Phone Number [facility] [place] [address] * Immature platelet fraction (01/20/2025 6:44 AM CDT) [facility] IPF 4.4 1.6 - 10.1 % Blood 01/20/2025 6:44 AM CDT 01/20/2025 6:57 AM CDT Fredrick Fay NP LAB BLOOD ORDERABLES Sheila l Result Performing Organization Address [facility] de Phone Number [facility] Department [place] [address] * (ABNORMAL) CBC without differential (01/20/2025 6:44 AM CDT) [facility] WBC 8.39 3.80 - 9.90 K/cumm Hgb 6.3(C) 11.9 - 15.5 g/dL [facility] Comment:This result has been called to Forrest Ayala RN by [email or web address] on 01/20/2025 07:09:25, and has been read back. Hct 17.9(L) 35.6 - 45.5 % [facility] Plt 47(C) 150 - 400 K/cumm [facility] Comment:Platelet count confi rmed by additional testing. Critical platelet count threshold determined by patient location: Outpatient:<50 K/cumm , Inpatient adults:<20 K/cumm , Inpatient pediatric:<25 K/cumm, BMT service:<10 K/cumm MPV 11.5 9.1 - 12.3 fL [facility] RBC 2.12(L) 3.90 - 5.20 M/cumm [facility] MCV 84.4 81.3 - 96.4 fL [facility] MCH 29.7 27.1 - 33.3 pg [facility] MCHC 35.2 32.3 - 35.7 g/dL [facility] RDW CV 16.9(H) 11.1 - 14.9 % [facility] RDW SD 51.8(H) 35.7 - 48.1 fL [facility] NRBC abs 0.02(H) 0.00 - 0.01 K/cumm [facility] Blood 01/20/2025 6:44 AM CDT 01/20/2025 6:49 AM CDT Fredrick Fay NP LAB BLOOD ORDERABLES Sheila hickman Result Performing Organization Address City/State/[facility] Co de Phone Number [facility] Department [place] [address] * Critical Care (01/20/2025 6:37 AM CDT) Narrative Mary Grider MD - 01/20/2025 6:37 AM CDT Mary Grider MD 01/20/2025 6:17 PM Critical Care Performed by: Fredrick Fay NP Authorized by: Fredrick Fay NP CRITICAL CARE: Team: 56 CTICU Shift: AM Level of Billing: Critical Care My time spent with this patient was 100 minutes: Critical Provider Statement: I have seen and examined the patient on this day of service. I have reviewed and confirmed the history, physical exam, laboratory and radiologic data as documented in the signed ICU note. I have reviewed and discussed my treatment plan with the ICU team and other medical/sephora product consultant staff, making frequent assessments and decisions regarding this patient's complex medical care. Critical Care time was exclusive of time spent performing separately billed procedures, treating other patients, and teaching. This time was in addition to and separate from critical care provided by other practitioners in my group on this day of service. Critical Care was necessary to treat or prevent imminent or life-threatening deterioration of the following conditions: I spent time reviewing and interpreting data from bedside monitors, laboratory results, and imaging, I spent time discussing the management of this critically ill patient with consultants and the medical staff and I spent time documenting in the medical record us Fredrick Fay NP IN CLINIC/BEDSIDE ORDERAB LES Final Result * POCT glucose (01/20/2025 5:20 AM CDT) Glucose, POC 111 70 - 199 mg/dL Blood 01/20/2025 5:20 AM CDT 01/20/2025 5:20 AM CDT us Brenna Chavez MD LAB POCT ORDERABLES - DEVICE Fin al Result [facility] Department [place] [address] * eGFR (01/19/2025 11:13 PM CDT) eGFR 63 >=60 mL/min/1. 73 m2 Comment: Interpretive Data Reference Interval Normal >/= 90 mL/min/1.73m2 Mildly decreased* 60 - 89 mL/min/1.73m2 Mildly to moderately decreased 45 - 59 mL/min/1.73m2 Moderately to severely decreased 30 - 44 mL/min/1.73m2 Severely decreased 15 - 29 mL/min/1.73m2 Kidney Failure < 15 mL/min/1.73m2 *Relative to young adult level Estimated glomerular filtration rate is determined by the 2020 CKD-EPI equation recommended by the National Kidney Foundation (A Unifying Approach to GFR Estimation: Recommendations of the NKF-ASK Task Force on Reassessing the Inclusion of Race in Diagnosing Kidney Disease, JASN 2020). The CKD-EPI equation should not be used for patients with unstable renal function and has not been validated in children and those over 70. Current interpretive data was last reviewed 2021. Blood 01/19/2025 11:1 3 PM CDT 01/19/2025 11:58 PM CDT us Alla Janneth Tonsor [employer] LAB BLOOD ORDERABLES Fin al Result [facility] Department [place] [address] * (ABNORMAL) CBC without differential (01/19/2025 11:13 PM CDT) WBC 14.60(H) 3.80 - 9.90 K/cumm Hgb 7.4(L) 11.9 - 15.5 g/dL [facility] Hct 20.8(L) 35.6 - 45.5 % [facility] Plt 75(L) 150 - 400 K/cumm [facility] MPV 11.0 9.1 - 12.3 fL [facility] RBC 2.49(L) 3.90 - 5.20 M/cumm [facility] MCV 83.5 81.3 - 96.4 fL [facility] MCH 29.7 27.1 - 33.3 pg [facility] MCHC 35.6 32.3 - 35.7 g/dL [facility] RDW CV 17.1(H) 11.1 - 14.9 % [facility] RDW SD 51.6(H) 35.7 - 48.1 fL [facility] NRBC abs 0.02(H) 0.00 - 0.01 K/cumm [facility] Blood 01/19/2025 11:1 3 PM CDT 01/19/2025 11:58 PM CDT Alla Lagunas Tonsor [employer] LAB BLOOD ORDERABLES Fin al Result [facility] Department [place] [address] * (ABNORMAL) Phosphorus (01/19/2025 11:13 PM CDT) Phosphorus, pl 1.0(L) 2.3 - 4.5 mg/dL Blood 01/19/2025 11:1 3 PM CDT 01/19/2025 11:58 PM CDT [facility] [employer] LAB BLOOD ORDERABLES Fin al Result Performing Organization Address City/[facility]/ZIP Co de Phone Number [facility] [place] [address] * Magnesium (01/19/2025 11:13 PM CDT) Pathologist [facility] [place] Magnesium 1.8 1.4 - 2.5 mg/dL Blood 01/19/2025 11:1 3 PM CDT 01/19/2025 11:58 PM CDT [facility]a [facility]eth [facility] [employer] LAB BLOOD ORDERABLES Fin al Result Performing Organization Address [facility] de Phone Number [facility] [place] [address] * (ABNORMAL) Basic metabolic panel (01/19/2025 11:13 PM CDT) [facility] Sodium 137 135 - 145 mmol/L Potassium, pl 4.0 3.3 - 4.9 mmol/L [facility] Chloride 104 97 - 110 mmol/L [facility] CO2 22 22 - 32 mmol/L [facility] Anion gap 11 2 - 15 mmol/L [facility] BUN 20 6 - 25 mg/dL [facility] Creatinine 0.93 0.60 - 1.10 mg/dL [facility] Glucose 141 70 - 199 mg/dL [facility] Comment: Interpretive Data Fasting glucose >/= 126 mg/dl is diagnostic for diabetes. Fasting is defined as no caloric intake for at least 8 hours. Fasting glucose between 100 mg/dl to 125 mg/dl is diagnostic of prediabetes. In a patient with classic symptoms of hyperglycemia or hyperglycemic crisis, a random glucose >/= 200 mg/dl is diagnostic for diabetes. In the absence of unequivocal hyperglycemia, results should be confirmed by repeat testing. The classification and Diagnosis of Diabetes Diabetes Care 2021; 46: S19-S40. Current interpretive data was last revised 2022. Calcium 8.3(L) 8.5 - 10.3 mg/dL [facility] Blood 01/19/2025 11:1 3 PM CDT 01/19/2025 11:58 PM CDT Alla Youngblood [employer] LAB BLOOD ORDERABLES Fin al Result Performing Organization Address City/[facility]/ZIP Co de Phone Number [facility] Department [place] [address] * POCT glucose (01/19/2025 11:12 PM CDT) [facility] Signature Glucose, POC 149 70 - 199 mg/dL Blood 01/19/2025 11:1 2 PM CDT 01/19/2025 11:12 PM CDT Brenna Chavez MD LAB POCT ORDERABLES - DEVICE Fin al Result Performing Organization Address City/[facility] Co de Phone Number [facility] Department [place] [address] * XR Chest 1 View - in PM (01/19/2025 8:44 PM CDT) Anatomical Region Laterality Modality Body, Chest N/A Digital Radiogra phy 01/20/2025 9:03 AM CDT Impressions 01/20/2025 10:10 AM CDT First exam 01/19/2025 5:33 PM Median sternotomy wires are in unchanged position. The previously seen right internal jugular [place]-Karl catheter has been removed. A right internal jugular central venous catheter has been placed with tip terminating over the superior vena cava. A right peripherally inserted central catheter has been place with the tip overlying the superior cavoatrial junction. A feeding tube extends below the level of the hemidiaphragm. Mitral valve annuloplasty is seen again. Surgical instrumentation of the cervical spine is noted. The cardiomediastinal silhouette is unchanged. There is no pneumothorax. Stable mild left-sided basilar atelectasis with trace pleural effusions. No focal pneumonic consolidation. Second exam 01/19/2025 7:42 PM No significant interval change. Dictated by: Canelo Luther M.D. The radiology attending physician has personally reviewed this study, and had reviewed and/or edited this written report and agrees with it. Electronically signed by: Rene Lorenz M.D. Narrative 01/20/2025 10:10 AM CDT Examination: 2 portable chests Chest one view portable Chest one view portable The current study is compared with the prior radiograph dated 01/19/2025. Procedure Note Rene Lorenz MD - 01/20/2025 Examination: 2 portable chests Chest one view portable Chest one view portable The current study is compared with the prior radiograph dated 01/19/2025. IMPRESSION: First exam 01/19/2025 5:33 PM Median sternotomy wires are in unchanged position. The previously seen right internal jugular [place]-Karl catheter has been removed. A right internal jugular central venous catheter has been placed with tip terminating over the superior vena cava. A right peripherally inserted central catheter has been place with the tip overlying the superior cavoatrial junction. A feeding tube extends below the level of the hemidiaphragm. Mitral valve annuloplasty is seen again. Surgical instrumentation of the cervical spine is noted. The cardiomediastinal silhouette is unchanged. There is no pneumothorax. Stable mild left-sided basilar atelectasis with trace pleural effusions. No focal pneumonic consolidation. Second exam 01/19/2025 7:42 PM No significant interval change. Dictated by: Canelo Luther M.D. The radiology attending physician has personally reviewed this study, and had reviewed and/or edited this written report and agrees with it. Electronically signed by: Rene Lorenz M.D. us Alla Youngblood NP IMG XR PROCEDURES Final Result * POCT glucose (01/19/2025 7:46 PM CDT) Glucose, POC 150 70 - 199 mg/dL Blood 01/19/2025 7:46 PM CDT 01/19/2025 7:46 PM CDT us Brenna Chavez MD LAB POCT ORDERABLES - DEVICE Fin al Result [facility] [place] [address] * Critical Care (01/19/2025 7:24 PM CDT) Narrative Mary Grider MD - 01/19/2025 7:24 PM CDT Mary Grider MD 01/20/2025 8:00 AM Critical Care Performed by: Vanessa Cobian DNP Authorized by: Vanessa Cobian DNP CRITICAL CARE: Team: 56 CTICU Shift: PM Level of Billing: Critical Care My time spent with this patient was 75 minutes: Critical Provider Statement: I have seen and examined the patient on this day of service. I have reviewed and confirmed the history, physical exam, laboratory and radiologic data as documented in the signed ICU note. I have reviewed and discussed my treatment plan with the ICU team and other medical/sephora product consultant staff, making frequent assessments and decisions regarding this patient's complex medical care. Critical Care time was exclusive of time spent performing separately billed procedures, treating other patients, and teaching. This time was in addition to and separate from critical care provided by other practitioners in my group on this day of service. Critical Care was necessary to treat or prevent imminent or life-threatening deterioration of the following conditions: I spent time reviewing and interpreting data from bedside monitors, laboratory results, and imaging, I spent time discussing the management of this critically ill patient with consultants and the medical staff and I spent time documenting in the medical record us Vanessa Cobian DNP IN CLINIC/BEDSIDE ORDERABLES Final Result * XR Chest 1 View (01/19/2025 5:45 PM CDT) Anatomical Region Laterality Modality Body, Chest N/A Digital Radiogra phy 01/20/2025 9:03 AM CDT Impressions 01/20/2025 10:10 AM CDT First exam 01/19/2025 5:33 PM Median sternotomy wires are in unchanged position. The previously seen right internal jugular [place]-Karl catheter has been removed. A right internal jugular central venous catheter has been placed with tip terminating over the superior vena cava. A right peripherally inserted central catheter has been place with the tip overlying the superior cavoatrial junction. A feeding tube extends below the level of the hemidiaphragm. Mitral valve annuloplasty is seen again. Surgical instrumentation of the cervical spine is noted. The cardiomediastinal silhouette is unchanged. There is no pneumothorax. Stable mild left-sided basilar atelectasis with trace pleural effusions. No focal pneumonic consolidation. Second exam 01/19/2025 7:42 PM No significant interval change. Dictated by: Canelo Luther M.D. The radiology attending physician has personally reviewed this study, and had reviewed and/or edited this written report and agrees with it. Electronically signed by: Rene Lorenz M.D. Narrative 01/20/2025 10:10 AM CDT Examination: 2 portable chests Chest one view portable Chest one view portable The current study is compared with the prior radiograph dated 01/19/2025. Procedure Note Rene Lorenz MD - 01/20/2025 Examination: 2 portable chests Chest one view portable Chest one view portable The current study is compared with the prior radiograph dated 01/19/2025. IMPRESSION: First exam 01/19/2025 5:33 PM Median sternotomy wires are in unchanged position. The previously seen right internal jugular Amazon[place]-Karl catheter has been removed. A right internal jugular central venous catheter has been placed with tip terminating over the superior vena cava. A right peripherally inserted central catheter has been place with the tip overlying the superior cavoatrial junction. A feeding tube extends below the level of the hemidiaphragm. Mitral valve annuloplasty is seen again. Surgical instrumentation of the cervical spine is noted. The cardiomediastinal silhouette is unchanged. There is no pneumothorax. Stable mild left-sided basilar atelectasis with trace pleural effusions. No focal pneumonic consolidation. Second exam 01/19/2025 7:42 PM No significant interval change. Dictated by: Canelo Luther M.D. The radiology attending physician has personally reviewed this study, and had reviewed and/or edited this written report and agrees with it. Electronically signed by: Rene Lorenz M.D. Alla Mabry PA IMG XR PROCEDURES Final Result * POCT glucose (01/19/2025 5:07 PM CDT) Glucose, POC 159 70 - 199 mg/dL Blood 01/19/2025 5:07 PM CDT 01/19/2025 5:07 PM CDT Brenna Chavez MD LAB POCT ORDERABLES - DEVICE Fin al Result Performing Organization Address [facility] de Phone Number [facility] Department [place] [address] * Potassium, whole blood (01/19/2025 3:25 PM CDT) Potassium, bld 4.2 3.3 - 4.9 mmol/L Blood 01/19/2025 3:25 PM CDT 01/19/2025 4:03 PM CDT Alla Rodriguezor STOKER E[employer]OR AND SERVICER LAB BLOOD ORDERABLES Fin al Result Performing Organization Address [facility] de Phone Number [facility] Department [place] [address] * POCT glucose (01/19/2025 3:24 PM CDT) Glucose, POC 156 70 - 199 mg/dL Blood 01/19/2025 3:24 PM CDT 01/19/2025 3:24 PM CDT Brenna Chavez MD LAB POCT ORDERABLES - DEVICE Fin al Result Performing Organization Address [facility] Co de Phone Number [facility] Department [place] [address] * SENIOR QUALITY TECHNICIAN Evaluate and Treat (FEES) (01/19/2025 2:46 PM CDT) Arabella ACEVEDOKAMILAKEMALSHANON - 01/19/2025 2:46 PM CDT Yuli Aguilera, VERONICA 01/19/2025 4:45 PM Speech-Language Pathology: Flexible Endoscopic Evaluation of Swallowing (FEES) [facility] 79 y.o. 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 Her course has otherwise been notable for acute on chronic hyponatremia (resolved), acute hypoxemic respiratory failure, and leukopenia followed by leukocytosis. 01/01: bMRI w/ multiple punctate infarcts in the left cerebellum, right medial thalamus, right superior frontal lobe, subdural empyema, spinal MRI with osteomyelitis 01/07: JANELLE w/ large vegetation on posterior leaflet with mild MR, preserved LVEF 01/11: Acute AMS, code stroke, HCT negative 01/13: LHC w/ LAD and ostial lesions 01/17: MVr (28 mm ring), patch repair of abscess cavity, and CABG x2 (SVG sequenced to LAD and diagonal), JOSELYN ligation No documented isael swallow screen. Respiratory/Intubation Status: 01/17, now RA Imaging: CXR (01/17)- New patchy left retrocardiac opacity most compatible with atelectasis. No pulmonary edema seen. No pneumothorax or pleural effusion seen. HCT (01/18)- 1. Right frontal approach ventriculostomy catheter in unchanged position and no significant interval change in ventriculomegaly when compared to CT 01/11/2025. 2. Trace decreasing bilateral frontal convexity subdural collections. No new intracranial hemorrhage BMRI (01/08)- 1. 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 The previously seen punctate infarct also visualized. These are likely to represent embolic source. 2. Right frontal approach ventriculostomy catheter with interval mild worsening of the dilatation of lateral and third ventricle. 3. Pachymeningeal enhancement. 4. Subdural enhancing collection at C1-C2 level likely representing subdural empyema. However the images are degraded by motion and not well evaluated. These findings were present on the prior scan and have not significantly changed. Precautions: fall PLOF: Cognistat 01/11: WFL despite lethargy CSE [facility] 01/10: Rec'd reg/reg CSE OSH 12/30: Rec'd reg/reg Current Diet Order:NPO, FT Baseline Diet: regular/regular, per pt report General Information Venkatesh Zaldivar 01/19/25 SENIOR QUALITY TECHNICIAN Received On: 01/19/25 General Observations: Pt seated upright in the bed and alert t/o evaluation, confused, in BUE mitts, followed basic commands, tolerated scope well. RN and PA agreeable to FEES. Pt's sister and daughter intermittently present. Pain Score: (pain with movement) If pain >4, was RN notified? N/A Patient Stated Goal/Comments: none stated r/t swallowing Clinical Impression & Professional Recommendations Diet Solids Recommendation: NPO (pending MBS) Diet Liquids Recommendations: NPO for liquids, Ice chips only (with supervision) Recommended Form of Medications: Feeding tube or crushed in puree Compensatory Strategies/Modifications: Slow rate Postural Recommendations: Upright Assistance with feeding/swallowing: Assist with aggressive oral hygiene prior to po Specialty Instructions: none Overall Clinical Impression/Additional Information: FEES was inconclusive, pt would benefit from further assessment of pharyngeal safety and efficiency via MBS study. Oral Phase Deficits: Reduced lingual to palatal seal Pharyngeal Phase Deficits: suspect reduced and/or slow laryngeal vestibule closure Deficits result in: Pt with occasional premature loss with thins and nectars into the laryngeal vestibule representing penetration before the swallow. Visualized deep penetration with thins and nectars between subsequent swallows but no penetration observed following completion of the swallow. Posterior penetration also observed; however, did not appear to spill over into the airway. No definitive penetration with honey thick liquids or puree. After the swallow, no notable residue remained. Of note, pt with greenish tinge in the subglottic space/on top of a prominent tracheal ring, difficult to determine if career representative of aspiration with thins and nectars. Assessment Details & Results Purpose and Procedure of Flexible Endoscopic Evaluation of Swallowing: Completed to assess oropharyngeal swallow function and evaluate the safety/efficiency of the swallow so that diet recommendations can be made. Results are indicative of performance at time of exam. A flexible endoscope was passed transnasally to the level of the hypopharynx without administration of topical anesthetic. The soft palate, pharynx, larynx, and surrounding structures were viewed. Position During Assessment: Position: Seated upright, in a bed Anatomy and Physiology Anatomy and Physiology Findings: Deficits Secretions: Minimal Structural Abnormalities: True vocal fold erythema t/o the body, supraglottic hyperfunction, possible small posterior glottic gap, L TVF possibly slightly hypomobile compared to the R TVF Consistencies Administered: Thin liquids, Burtrum thick liquids, Honey thick liquids, Purees Thin Liquids: Laryngeal Penetration: Present Aspiration Present: (unable to definitively rule in or out) Penetration Aspiration Scale-Thin: (pending further assessment via MBS) [place] Scale-Vallecular Residue-Thin Liquids: Trace [place] Scale-Pyriform Sinus Residue-Thin Liquids: Trace Burtrum Thickened Liquids: Laryngeal Penetration: Present Aspiration Present: (unable to definitively rule in or out) Penetration Aspiration Scale-Burtrum: (pending further assessment via MBS) [place] Scale-Vallecular Residue-Burtrum Thickened Liquids: Trace Isael Scale-Pyriform Sinus Residue-Burtrum Thickened Liquids: Trace Honey Thickened Liquids: Laryngeal Penetration: None (suspected) Aspiration Present: No (suspected) Penetration Aspiration Scale-Honey: 1-Material does not enter airway (suspected) Isael Scale-Vallecular Residue-Honey Thickened Liquids: Trace [place] Scale-Pyriform Sinus Residue-Honey Thickened Liquids: Trace Purees: Laryngeal Penetration: None (suspected) Aspiration Present: No (suspected) Penetration Aspiration Scale-Puree: 1-Material does not enter airway (suspected) Isael Scale-Vallecular Residue-Puree: Trace Isael Scale-Pyriform Sinus Residue-Puree: Trace Dysphagia Outcome and Severity Scale: Dysphagia Outcomes and Severity Scale: (pending further assessment via MBS) Levels 1 & 2 on the KESHIA indicate need for nonoral nutrition. Treatment Treatment was not provided this date. Please reference care plan for treatment goals and details, if indicated. Plan SENIOR QUALITY TECHNICIAN Frequency of Services during current admission: Pending instrumental assessment SENIOR QUALITY TECHNICIAN Recommendation (Add'l Services): Defer at this time Next Visit Plan:repeat instrumental evaluation (MBS) Additional Referrals: RD f/u (notified of results) Discharge Summary Statement If this is the last swallow therapy visit, this serves as the discharge summary. Alla STEWART SENIOR QUALITY TECHNICIAN ORDERABLES Final R esult [facility] * XR Chest 1 View (01/19/2025 12:05 PM CDT) Anatomical Region Laterality Modality Body, Chest N/A Digital Radiogra phy 01/19/2025 2:05 PM CDT Impressions 01/19/2025 6:04 PM CDT The current study is compared with the prior radiograph dated 01/18/2025. Median sternotomy wires are in an unchanged position. Right internal jugular [place]-Karl catheter tip terminates over the main pulmonary artery. A feeding tube extends below the level of the hemidiaphragm. Bilateral chest tubes have been removed. Mitral valve annuloplasty is seen again. There is no pneumothorax. Stable mild left basilar atelectasis. The right lung is clear. No focal pneumonic consolidation. The cardiomediastinal silhouette is stable. Dictated by: Canelo Luther M.D. The radiology attending physician has personally reviewed this study, and had reviewed and/or edited this written report and agrees with it. Electronically signed by: Doc Reyes M.D. Narrative 01/19/2025 6:04 PM CDT EXAMINATION: 1 view chest radiograph Procedure Note Doc Reyes MD - 01/19/2025 EXAMINATION: 1 view chest radiograph IMPRESSION: The current study is compared with the prior radiograph dated 01/18/2025. Median sternotomy wires are in an unchanged position. Right internal jugular [place]-Karl catheter tip terminates over the main pulmonary artery. A feeding tube extends below the level of the hemidiaphragm. Bilateral chest tubes have been removed. Mitral valve annuloplasty is seen again. There is no pneumothorax. Stable mild left basilar atelectasis. The right lung is clear. No focal pneumonic consolidation. The cardiomediastinal silhouette is stable. Dictated by: Canelo Luther M.D. The radiology attending physician has personally reviewed this study, and had reviewed and/or edited this written report and agrees with it. Electronically signed by: Doc Reyes M.D. Alla Mabry PA IMG XR PROCEDURES Final Result * POCT glucose (01/19/2025 11:41 AM CDT) Glucose, POC 159 70 - 199 mg/dL Blood 01/19/2025 11:4 1 AM CDT 01/19/2025 11:41 AM CDT Brenna Chavez MD LAB POCT ORDERABLES - DEVICE Fin al Result Performing Organization Address [facility] Co de Phone Number [facility] Department [place] [employer] [place] [address] * HIT Antibodies with Reflex to Serotonin Release Assay (SALTY) (01/19/2025 11:38 AM CDT) [facility] HIT antibodies Negative Negative HIT Ab LIANNE Units 0.39 0.00 - 0.99 units/mL [facility] Comment: A positive HIT Ab (heparin PF4 antibody LIANNE test) is extremely sensitive for heparin-induced thrombocytopenia (HIT), but not specific, since many patients exposed to heparin have positive antibody tests without developing HIT. Higher HIT Ab LIANNE Units are associated with a higher likelihood of a positive serotonin release assay (SALTY) and a clinical course consistent with HIT. The 4T scoring system is a useful tool for pretest probability of HIT (Cuker et al, Blood 2012;120:4160). Both laboratory testing and clinical risk evaluation should be considered in determining an individual patient s risk of HIT. Blood 01/19/2025 11:3 8 AM CDT 01/19/2025 12:00 PM CDT Lina Gómez STOKER ERECTOR AND SERVICER LAB BLOOD ORDERABLES Final Result Performing Organization Address City/[facility]/ZIP Co de Phone Number [facility] Department [place] [employer] [place] [address] * Infection Prevention Blade auris PCR, surveillance Axilla/Groin (01/19/2025 9:53 AM CDT) Blade auris DNA Not Detected Not Detected [facility] Comment: Interpretive Data Testing performed by [facility] using the Rich chioma 6800 Blade auris assay. This assay detects DNA from Blade auris using Real-Time PCR. This assay is laboratory developed and is not cleared by the [place] Food and Drug Administration. The performance characteristics have been verified by the [facility]. Axilla/Groin 01/19/2025 9:53 AM CDT 01/19/2025 10:11 AM CDT Sukhdev Bell MD LAB MICROBIOLOGY - GENERAL ORDER RILEY Final Result Performing Organization Address [facility] Co de Phone Number [facility] Department [place] [address] [facility] * (ABNORMAL) Blood gas, arterial (01/19/2025 7:46 AM CDT) Pathologist [facility] [place] pH, Art 7.44 7.35 - 7.45 PCO2, Arterial 33(L) 35 - 45 mmHg [facility] PO2, Arterial 105 83 - 108 mmHg [facility] HCO3 Art (Calculated) 22 20 - 30 mmol/L [facility] BE, art -1 mmol/L [facility] Comment: Interpretive Data No Reference Range Established Current Interpretive Data was last revised on 2017 O2 Sat Art (Measured) 98(H) 90 - 95 % [facility] Blood 01/19/2025 7:46 AM CDT 01/19/2025 7:54 AM CDT Alla Youngblood NP LAB BLOOD ORDERABLES Fin al Result Performing Organization Address City/[facility]/ZIP Co de Phone Number [facility] [place] [place] [address] * Oxyhemoglobin, pulmonary artery (01/19/2025 7:45 AM CDT) Oxyhemoglobin, PA 56.3 % Comment: Interpretive Data No reference range established. Current interpretive data was last revised 2019. Blood 01/19/2025 7:45 AM CDT 01/19/2025 7:54 AM CDT Alla Youngblood STOKER E[employer]OR AND SERVICER LAB BLOOD ORDERABLES Fin al Result Performing Organization Address City/[facility] Co de Phone Number [facility] [place] [address] * (ABNORMAL) Hemoglobin total, pulmonary artery (01/19/2025 7:45 AM CDT) Pathologist [facility] [place] Hemoglobin total, PA 8.0(L) 11.9 - 15.5 g/dL Blood 01/19/2025 7:45 AM CDT 01/19/2025 7:54 AM CDT Lina Doshi STOKER ERECTOR AND SERVICER LAB BLOOD ORDERABLES Fi nal Result Performing Organization Address [facility] de Phone Number [facility] [employer] [place] [address] * Potassium, whole blood (01/19/2025 7:45 AM CDT) Pathologist [facility] [place] Potassium, bld 3.8 3.3 - 4.9 mmol/L Blood 01/19/2025 7:45 AM CDT 01/19/2025 7:54 AM CDT Alla Rodriguezor STOKER ERECTOR AND SERVICER LAB BLOOD ORDERABLES Fin al Result Performing Organization Address City/[facility] Co de Phone Number [facility] [employer] [place] [address] * Calcium, ionized, whole blood (01/19/2025 7:45 AM CDT) Ca, ionized, bld 4.71 4.50 - 5.10 mg/dL Blood 01/19/2025 7:45 AM CDT 01/19/2025 7:54 AM CDT Brenna Chavez MD LAB BLOOD ORDERABLES Final Resul t Performing Organization Address [facility] de Phone Number [facility] Department [place] [address] * Lactate, whole blood (01/19/2025 7:45 AM CDT) [facility] Lactate, bld 1.6 0.7 - 2.0 mmol/L Blood 01/19/2025 7:45 AM CDT 01/19/2025 7:54 AM CDT Alla Rodriguezor STOKER ERECTOR AND SERVICER LAB BLOOD ORDERABLES Fin al Result Performing Organization Address [facility] de Phone Number [facility] Department [place] [address] * (ABNORMAL) CBC without differential (01/19/2025 7:45 AM CDT) [facility] WBC 14.49(H) 3.80 - 9.90 K/cumm Hgb 7.7(L) 11.9 - 15.5 g/dL [facility] Hct 22.1(L) 35.6 - 45.5 % [facility] Plt 80(L) 150 - 400 K/cumm [facility] MPV 10.4 9.1 - 12.3 fL [facility] RBC 2.60(L) 3.90 - 5.20 M/cumm [facility] MCV 85.0 81.3 - 96.4 fL [facility] MCH 29.6 27.1 - 33.3 pg [facility] MCHC 34.8 32.3 - 35.7 g/dL [facility] RDW CV 16.7(H) 11.1 - 14.9 % [facility] RDW SD 50.9(H) 35.7 - 48.1 fL [facility] NRBC abs 0.02(H) 0.00 - 0.01 K/cumm [facility] Blood 01/19/2025 7:45 AM CDT 01/19/2025 7:54 AM CDT Alla STEWART LAB BLOOD ORDERABLES Fi nal Result Performing Organization Address [facility] Co de Phone Number [facility] Department [place] [address] * POCT glucose (01/19/2025 7:40 AM CDT) Glucose, POC 126 70 - 199 mg/dL Blood 01/19/2025 7:40 AM CDT 01/19/2025 7:40 AM CDT Brenna Chavez MD LAB POCT ORDERABLES - DEVICE Fin al Result Performing Organization Address [facility] de Phone Number [facility] Department [place] [address] * Critical Care (01/19/2025 7:15 AM CDT) Narrative Mary Grider MD - 01/19/2025 7:15 AM CDT Mary Grider MD 01/19/2025 4:38 PM Critical Care Performed by: Alla Mabry PA Authorized by: Alla Mabry PA CRITICAL CARE: Team: 56 CTICU Shift: AM Level of Billing: Critical Care My time spent with this patient was 85 minutes: Critical Provider Statement: I have seen and examined the patient on this day of service. I have reviewed and confirmed the history, physical exam, laboratory and radiologic data as documented in the signed ICU note. I have reviewed and discussed my treatment plan with the ICU team and other medical/sephora product consultant staff, making frequent assessments and decisions regarding this patient's complex medical care. Critical Care time was exclusive of time spent performing separately billed procedures, treating other patients, and teaching. This time was in addition to and separate from critical care provided by other practitioners in my group on this day of service. Critical Care was necessary to treat or prevent imminent or life-threatening deterioration of the following conditions: Alla STEWART IN CLINIC/BEDSIDE ORDER RILEY Final Result * Transfuse platelets (01/19/2025 7:00 AM CDT) Blood Vanessa Cobian DNP BLOOD TRANSFUSION ORDERABLES Final Result [facility] Department [place] [address] * (ABNORMAL) CBC without differential (01/19/2025 4:47 AM CDT) WBC 13.77(H) 3.80 - 9.90 K/cumm Hgb 8.5(L) 11.9 - 15.5 g/dL [facility] Hct 23.9(L) 35.6 - 45.5 % [facility] Plt 71(L) 150 - 400 K/cumm [facility] MPV 10.8 9.1 - 12.3 fL [facility] RBC 2.84(L) 3.90 - 5.20 M/cumm [facility] MCV 84.2 81.3 - 96.4 fL [facility] MCH 29.9 27.1 - 33.3 pg [facility] MCHC 35.6 32.3 - 35.7 g/dL [facility] RDW CV 16.7(H) 11.1 - 14.9 % [facility] RDW SD 51.2(H) 35.7 - 48.1 fL [facility] NRBC abs 0.02(H) 0.00 - 0.01 K/cumm [facility] Blood 01/19/2025 4:47 AM CDT 01/19/2025 4:59 AM CDT Vanessa Delma Jaber DNP LAB BLOOD ORDERABLES Final R esult Performing Organization Address [facility] Co de Phone Number [facility] [place] [place] [address] * POCT glucose (01/19/2025 4:45 AM CDT) Glucose, POC 163 70 - 199 mg/dL Blood 01/19/2025 4:45 AM CDT 01/19/2025 4:45 AM CDT Brenna Chavez MD LAB POCT ORDERABLES - DEVICE Fin al Result Performing Organization Address [facility] de Phone Number [facility] [place] [address] * Oxyhemoglobin, pulmonary artery (01/19/2025 4:38 AM CDT) Oxyhemoglobin, PA 59.3 % Comment: Interpretive Data No reference range established. Current interpretive data was last revised 2019. Blood 01/19/2025 4:38 AM CDT 01/19/2025 4:58 AM CDT us Alla Youngblood STOKER ERECTOR AND SERVICER LAB BLOOD ORDERABLES Fin al Result Performing Organization Address [facility] de Phone Number [facility] Department [place] [address] * (ABNORMAL) Hemoglobin total, pulmonary artery (01/19/2025 4:38 AM CDT) Hemoglobin total, PA 7.8(L) 11.9 - 15.5 g/dL Blood 01/19/2025 4:38 AM CDT 01/19/2025 4:58 AM CDT Lina Doshi STOKER ERECTOR AND SERVICER LAB BLOOD ORDERABLES Fi nal Result Performing Organization Address [facility]/ZIP Co de Phone Number [facility] [place] [place] [address] * Lactate, whole blood (01/19/2025 4:38 AM CDT) Pathologist [facility] [place] Lactate, bld 1.6 0.7 - 2.0 mmol/L Blood 01/19/2025 4:38 AM CDT 01/19/2025 4:58 AM CDT Alla Lagunas Tonsor STOKER ERECTOR AND SERVICER LAB BLOOD ORDERABLES Fin al Result Performing Organization Address [facility] Co de Phone Number [facility] [place] [address] * (ABNORMAL) Blood gas, arterial (01/19/2025 4:38 AM CDT) Pathologist [facility], [place] pH, Art 7.44 7.35 - 7.45 PCO2, Arterial 31(L) 35 - 45 mmHg [facility] PO2, Arterial 123(H) 83 - 108 mmHg [facility] HCO3 Art (Calculated) 21 20 - 30 mmol/L [facility] BE, art -3 mmol/L [facility] Comment: Interpretive Data No Reference Range Established Current Interpretive Data was last revised on 2017 O2 Sat Art (Measured) 99(H) 90 - 95 % [facility] Blood 01/19/2025 4:38 AM CDT 01/19/2025 4:58 AM CDT Alla Rodriguezor [employer]OK[employer] E[employer]OR [employer] SERVICER LAB BLOOD ORDERABLES Fin al Result Performing Organization Address City/[facility]/ZIP Co de Phone Number [facility] [place] [address] * Transfuse RBC (01/19/2025 2:59 AM CDT) Blood Vanessa Cobian DNP BLOOD TRANSFUSION ORDERABLES Final Result [facility] Department [place] [address] * Prepare platelets: 2 Units (01/19/2025 1:41 AM CDT) Pathologist [facility] [place] Product code [id number] Unit Number [id number] [facility] Product Blood Type OPOS [facility] Dispense Status PRESUMED TRANSFUSED [facility] Blood Venous blood specimen / Unknown 01/19/2025 1:41 AM CDT 01/19/2025 1:41 AM CDT Narrative [facility] - 01/19/2025 4:01 PM CDT Other indication->CTS Are special requirements needed? (all products are leukoreduced)->No Date required:-20250119 PLT # of Units:-2-Units Reasons:-Other (Specify)} Vanessa Cobian [facility] PRODUCT ORDERABLE S Final Result Performing Organization Address [facility] de Phone Number [facility] Department [place] [address] * Prepare RBC: 1 Units (01/19/2025 12:59 AM CDT) [facility] Product code [id number] Unit Number [id number] [facility] Product Blood Type ONEG [facility] Dispense Status PRESUMED TRANSFUSED [facility] Blood 01/19/2025 12:5 9 AM CDT 01/19/2025 12:59 AM CDT Narrative [facility] - 01/19/2025 4:01 PM CDT Other indication->CTS Are special requirements needed? (All products are leukoreduced and CMV- safe)- >No Date required:-20250119 LRRBC # of [id number] Reasons:-Other (specify)} Vanessa Cobian [facility] PRODUCT ORDERABLE S Final Result Performing Organization Address [facility] Co de Phone Number [facility] Department [place] [address] * Oxyhemoglobin, pulmonary artery (01/19/2025 12:54 AM CDT) Oxyhemoglobin, PA 63.6 % Comment: Interpretive Data No reference range established. Current interpretive data was last revised 2019. Blood 01/19/2025 12:5 4 AM CDT 01/19/2025 1:06 AM CDT Alla Youngblood [employer]OK[employer] E[employer]OR AND SERVICER LAB BLOOD ORDERABLES Fin al Result [facility] [place] [address] * (ABNORMAL) Hemoglobin total, pulmonary artery (01/19/2025 12:54 AM CDT) Hemoglobin total, PA 6.6(L) 11.9 - 15.5 g/dL Blood 01/19/2025 12:5 4 AM CDT 01/19/2025 1:06 AM CDT Lina Doshi [employer]OKER E[employer]OR AND SERVICER LAB BLOOD ORDERABLES Fi nal Result Performing Organization Address City/[facility]/ZIP Co de Phone Number [facility] [place] [place] [address] * (ABNORMAL) Lactate, whole blood (01/19/2025 12:54 AM CDT) Lactate, bld 2.5(H) 0.7 - 2.0 mmol/L Blood 01/19/2025 12:5 4 AM CDT 01/19/2025 1:06 AM CDT Alla Youngblood [employer]OK[employer] E[employer]OR AND SERVICER LAB BLOOD ORDERABLES Fin al Result [facility] Department [place] [address] * (ABNORMAL) Blood gas, arterial (01/19/2025 12:54 AM CDT) [facility] pH, Art 7.41 7.35 - 7.45 PCO2, Arterial 34(L) 35 - 45 mmHg [facility] PO2, Arterial 128(H) 83 - 108 mmHg [facility] HCO3 Art (Calculated) 21 20 - 30 mmol/L [facility] BE, art -3 mmol/L [facility] Comment: Interpretive Data No Reference Range Established Current Interpretive Data was last revised on 2017 O2 Sat Art (Measured) 99(H) 90 - 95 % [facility] Blood 01/19/2025 12:5 4 AM CDT 01/19/2025 1:06 AM CDT Alla Youngblood [employer]OK[employer] E[employer]OR AND SERVICER LAB BLOOD ORDERABLES Fin al Result Performing Organization Address City/[facility]/ZIP Co de Phone Number [facility] [place] [address] * POCT glucose (01/18/2025 11:48 PM CDT) [facility] Glucose, POC 144 70 - 199 mg/dL Blood 01/18/2025 11:4 8 PM CDT 01/18/2025 11:48 PM CDT Brenna Chavez MD LAB POCT ORDERABLES - DEVICE Fin al Result [facility] [place] [address] * Immature platelet fraction (01/18/2025 11:42 PM CDT) [facility] IPF 5.2 1.6 - 10.1 % Blood 01/18/2025 11:4 2 PM CDT 01/19/2025 12:22 AM CDT Alla Mabry PA LAB BLOOD ORDERABLES Fi nal Result Performing Organization Address [facility] de Phone Number [facility] [employer] [place] [address] * Oxyhemoglobin, pulmonary artery (01/18/2025 11:42 PM CDT) Oxyhemoglobin, PA 75.9 % Comment: Interpretive Data No reference range established. Current interpretive data was last revised 2019. Blood 01/18/2025 11:4 2 PM CDT 01/19/2025 12:08 AM CDT Alla Youngblood [employer]OK[employer] E[employer]OR [employer] SERVICER LAB BLOOD ORDERABLES Fin al Result Performing Organization Address [facility] de Phone Number [facility] [place] [address] * (ABNORMAL) Hemoglobin total, pulmonary artery (01/18/2025 11:42 PM CDT) Hemoglobin total, PA 6.8(L) 11.9 - 15.5 g/dL Blood 01/18/2025 11:4 2 PM CDT 01/19/2025 12:08 AM CDT Lina Doshi [employer]OKER E[employer]OR AND SERVICER LAB BLOOD ORDERABLES Fi nal Result Performing Organization Address [facility] de Phone Number [facility] [place] [address] * eGFR (01/18/2025 11:42 PM CDT) eGFR 62 >=60 mL/min/1. 73 m2 Comment: Interpretive Data Reference Interval Normal >/= 90 mL/min/1.73m2 Mildly decreased* 60 - 89 mL/min/1.73m2 Mildly to moderately decreased 45 - 59 mL/min/1.73m2 Moderately to severely decreased 30 - 44 mL/min/1.73m2 Severely decreased 15 - 29 mL/min/1.73m2 Kidney Failure < 15 mL/min/1.73m2 *Relative to young adult level Estimated glomerular filtration rate is determined by the 2020 CKD-EPI equation recommended by the National Kidney Foundation (A Unifying Approach to GFR Estimation: Recommendations of the NKF-ASK Task Force on Reassessing the Inclusion of Race in Diagnosing Kidney Disease, JASN 202). The CKD-EPI equation should not be used for patients with unstable renal function and has not been validated in children and those over 70. Current interpretive data was last reviewed 2021. Blood 01/18/2025 11:4 2 PM CDT 01/19/2025 12:17 AM CDT Alla STEWART LAB BLOOD ORDERABLES nal Result [facility] Department [place] [address] * (ABNORMAL) CBC with auto differential (01/18/2025 11:42 PM CDT) [facility] WBC 13.08(H) 3.80 - 9.90 K/cumm Hgb 7.0(L) 11.9 - 15.5 g/dL [facility] Hct 19.4(L) 35.6 - 45.5 % [facility] Plt 45(C) 150 - 400 K/cumm [facility] Comment:Platelet count confi rmed by additional testing. Critical platelet count threshold determined by patient location: Outpatient:<50 K/cumm , Inpatient adults:<20 K/cumm , Inpatient pediatric:<25 K/cumm, BMT service:<10 K/cumm MPV 10.7 9.1 - 12.3 fL [facility] RBC 2.27(L) 3.90 - 5.20 M/cumm [facility] MCV 85.5 81.3 - 96.4 fL [facility] MCH 30.8 27.1 - 33.3 pg [facility] MCHC 36.1(H) 32.3 - 35.7 g/dL [facility] RDW CV 17.2(H) 11.1 - 14.9 % [facility] RDW SD 53.3(H) 35.7 - 48.1 fL [facility] NRBC abs 0.02(H) 0.00 - 0.01 K/cumm [facility] Morphologic Screen Results confirmed by manual morphology review. [facility] Blood 01/18/2025 11:4 2 PM CDT 01/19/2025 12:17 AM CDT Alla STEWART LAB BLOOD ORDERABLES Fi nal Result [facility] Department [place] [address] * (ABNORMAL) Manual Differential (01/18/2025 11:42 PM CDT) Differential Manual Cells Counted 117 [facility] Neutrophil abs 11.75(H) 1.50 - 6.50 K/cumm [facility] Lymphocyte abs 0.67(L) 0.80 - 3.30 K/cumm [facility] Monocyte abs 0.67 0.20 - 0.80 K/cumm [facility] Neutrophil pct 89.8 % [facility] Comment: Interpretive Data Percent cell count reference ranges are not reported, since discordance with absolute values may lead to misinterpretation of CBC data. Current Interpretive Data was last revised on 2017. Lymphocyte pct 5.1 % [facility] Comment: Interpretive Data Percent cell count reference ranges are not reported, since discordance with absolute values may lead to misinterpretation of CBC data. Current Interpretive Data was last revised on 2017. Monocyte pct 5.1 % [facility] Comment: Interpretive Data Percent cell count reference ranges are not reported, since discordance with absolute values may lead to misinterpretation of CBC data. Current Interpretive Data was last revised on 2017. Blood 01/18/2025 11:4 2 PM CDT 01/19/2025 12:22 AM CDT Alla Mabry PA LAB BLOOD ORDERABLES Fi nal Result Performing Organization Address [facility] Co de Phone Number [facility] [place] [address] * (ABNORMAL) Phosphorus (01/18/2025 11:42 PM CDT) Phosphorus, pl 2.2(L) 2.3 - 4.5 mg/dL Blood 01/18/2025 11:4 2 PM CDT 01/19/2025 12:17 AM CDT Alla Lagunas Tonsor [employer]OKER ERECTOR AND SERVICER LAB BLOOD ORDERABLES Fin al Result Performing Organization Address [facility] de Phone Number [facility] [place] [address] * Magnesium (01/18/2025 11:42 PM CDT) Magnesium 1.9 1.4 - 2.5 mg/dL Blood 01/18/2025 11:4 2 PM CDT 01/19/2025 12:17 AM CDT Alla Lagunas Tonsor [employer]OK[employer] E[employer]OR AND SERVICER LAB BLOOD ORDERABLES Fin al Result Performing Organization Address [facility] de Phone Number [facility] [place] [address] * (ABNORMAL) Blood gas, arterial (01/18/2025 11:42 PM CDT) pH, Art 7.40 7.35 - 7.45 PCO2, Arterial 34(L) 35 - 45 mmHg [facility] PO2, Arterial 101 83 - 108 mmHg [facility] HCO3 Art (Calculated) 21 20 - 30 mmol/L [facility] BE, art -3 mmol/L [facility] Comment: Interpretive Data No Reference Range Established Current Interpretive Data was last revised on 2017 O2 Sat Art (Measured) 98(H) 90 - 95 % [facility] Blood 01/18/2025 11:4 2 PM CDT 01/19/2025 12:08 AM CDT Alla Lagunas Rylie STOKER ERECTOR AND SERVICER LAB BLOOD ORDERABLES Fin al Result [facility] Department [place] [address] * (ABNORMAL) Comprehensive metabolic panel (01/18/2025 11:42 PM CDT) Sodium 135 135 - 145 mmol/L Potassium, pl 3.9 3.3 - 4.9 mmol/L [facility] Chloride 104 97 - 110 mmol/L [facility] CO2 22 22 - 32 mmol/L [facility] Anion gap 9 2 - 15 mmol/L [facility] BUN 15 6 - 25 mg/dL [facility] Creatinine 0.94 0.60 - 1.10 mg/dL [facility] Glucose 134 70 - 199 mg/dL [facility] Comment: Interpretive Data Fasting glucose >/= 126 mg/dl is diagnostic for diabetes. Fasting is defined as no caloric intake for at least 8 hours. Fasting glucose between 100 mg/dl to 125 mg/dl is diagnostic of prediabetes. In a patient with classic symptoms of hyperglycemia or hyperglycemic crisis, a random glucose >/= 200 mg/dl is diagnostic for diabetes. In the absence of unequivocal hyperglycemia, results should be confirmed by repeat testing. The classification and Diagnosis of Diabetes Diabetes Care 2021; 46: S19-S40. Current interpretive data was last revised 2022. Calcium 8.5 8.5 - 10.3 mg/dL [facility] Bilirubin, total 0.4 0.1 - 1.2 mg/dL [facility] Protein, pl 5.3(L) 6.5 - 8.5 g/dL [facility] Albumin 3.1(L) 3.5 - 5.0 g/dL [facility] Alk phos 80 40 - 130 Units/L [facility] ALT 19 7 - 45 Units/L [facility] AST 81(H) 10 - 45 Units/L [facility] Comment:Reviewed Blood 01/18/2025 11:4 2 PM CDT 01/19/2025 12:17 AM CDT us Alla STEWART LAB BLOOD ORDERABLES Fi nal Result [facility] Department [place] [address] * XR Chest 1 View - in PM (01/18/2025 8:51 PM CDT) Anatomical Region Laterality Modality Body, Chest N/A Digital Radiogra phy 01/19/2025 7:43 AM CDT Impressions 01/19/2025 7:43 AM CDT Comparison to 01/17/2025. Interval extubation. Enteric tube extends inferior to the [id number] the study, below the GE junction. Right IJ PA catheter with tip over the main pulmonary artery. Mediastinal and pericardial drains. Bilateral chest tubes. The heart and mediastinum are unchanged status post median sternotomy. There is no pneumothorax. There is mild left basilar atelectasis. No definite pleural effusion. Electronically signed by: Raymon Sinclair M.D. Narrative 01/19/2025 7:43 AM CDT EXAMINATION: 1 view chest radiograph Procedure Note Raymon Sinclair MD - 01/19/2025 EXAMINATION: 1 view chest radiograph IMPRESSION: Comparison to 01/17/2025. Interval extubation. Enteric tube extends inferior to the [id number] the study, below the GE junction. Right IJ PA catheter with tip over the main pulmonary artery. Mediastinal and pericardial drains. Bilateral chest tubes. The heart and mediastinum are unchanged status post median sternotomy. There is no pneumothorax. There is mild left basilar atelectasis. No definite pleural effusion. Electronically signed by: Raymon Sinclair M.D. us Alla Youngblood NP IMG XR PROCEDURES Final Result * POCT glucose (01/18/2025 7:50 PM CDT) Glucose, POC 138 70 - 199 mg/dL Blood 01/18/2025 7:50 PM CDT 01/18/2025 7:50 PM CDT Brenna Chavez MD LAB POCT ORDERABLES - DEVICE Fin al Result Performing Organization Address City/[facility] Co de Phone Number [facility] [place] [address] * Oxyhemoglobin, pulmonary artery (01/18/2025 7:49 PM CDT) Oxyhemoglobin, PA 53.4 % Comment: Interpretive Data No reference range established. Current interpretive data was last revised 2019. Blood 01/18/2025 7:49 PM CDT 01/18/2025 8:18 PM CDT Alla Youngblood STOKER E[employer]OR AND SERVICER LAB BLOOD ORDERABLES Fin al Result Performing Organization Address [facility] Co de Phone Number [facility] [place] [address] * (ABNORMAL) Hemoglobin total, pulmonary artery (01/18/2025 7:49 PM CDT) Hemoglobin total, PA 7.3(L) 11.9 - 15.5 g/dL Blood 01/18/2025 7:49 PM CDT 01/18/2025 8:18 PM CDT Lina Doshi STOKER ERECTOR AND SERVICER LAB BLOOD ORDERABLES Fi nal Result Performing Organization Address [facility] Co de Phone Number [facility] [place] [address] * (ABNORMAL) Blood gas, arterial (01/18/2025 7:49 PM CDT) pH, Art 7.44 7.35 - 7.45 PCO2, Arterial 30(L) 35 - 45 mmHg [facility] PO2, Arterial 128(H) 83 - 108 mmHg [facility] HCO3 Art (Calculated) 20 20 - 30 mmol/L [facility] BE, art -3 mmol/L [facility] Comment: Interpretive Data No Reference Range Established Current Interpretive Data was last revised on 2017 O2 Sat Art (Measured) 99(H) 90 - 95 % [facility] Blood 01/18/2025 7:49 PM CDT 01/18/2025 8:18 PM CDT Alla Youngblood STOKER E[employer]OR AND SERVICER LAB BLOOD ORDERABLES Fin al Result [facility] [place] [address] * Critical Care (01/18/2025 7:09 PM CDT) Narrative Mary Grider MD - 01/18/2025 7:09 PM CDT Mary Grider MD 01/19/2025 10:49 AM Critical Care Performed by: Vanessa Cobian DNP Authorized by: Vanessa Cobian DNP CRITICAL CARE: Team: 56 CTICU Shift: PM Level of Billing: Critical Care My time spent with this patient was 95 minutes: Critical Provider Statement: I have seen and examined the patient on this day of service. I have reviewed and confirmed the history, physical exam, laboratory and radiologic data as documented in the signed ICU note. I have reviewed and discussed my treatment plan with the ICU team and other medical/[employer] consultant staff, making frequent assessments and decisions regarding this patient's complex medical care. Critical Care time was exclusive of time spent performing separately billed procedures, treating other patients, and teaching. This time was in addition to and separate from critical care provided by other practitioners in my group on this day of service. Critical Care was necessary to treat or prevent imminent or life-threatening deterioration of the following conditions: I spent time reviewing and interpreting data from bedside monitors, laboratory results, and imaging, I spent time discussing the management of this critically ill patient with consultants and the medical staff and I spent time documenting in the medical record Vanessa Cobian DNP IN CLINIC/BEDSIDE ORDERABLES Final Result * XR Abdomen 1 View AP (01/18/2025 6:10 PM CDT) Anatomical Region Laterality Modality Body, Abdomen N/A Computed Radiogr aphy 01/19/2025 9:10 AM CDT Impressions 01/19/2025 10:24 AM CDT Enteric tube is in place, the tip projects over the body of the stomach. The stylet remains in place. Bilateral thoracostomy tubes, mediastinal drains in place, . Partially imaged epicardial pacing wires and pulmonary arterial catheter. Prosthetic valve, median sternotomy wires noted. Overlying cardiac monitoring wires. Ventriculoperitoneal shunt catheter overlies the right hemiabdomen. Dictated by: Flor Whitaker M.D. The radiology attending physician has personally reviewed this study, and had reviewed and/or edited this written report and agrees with it. Electronically signed by: Flor Mao M.D. Narrative 01/19/2025 10:24 AM CDT EXAMINATION: Abdomen, one view. HISTORY: Check tube placement. COMPARISON: Radiograph 01/17/2025 Procedure Note Flor Mao MD - 01/19/2025 EXAMINATION: Abdomen, one view. HISTORY: Check tube placement. COMPARISON: Radiograph 01/17/2025 IMPRESSION: Enteric tube is in place, the tip projects over the body of the stomach. The stylet remains in place. Bilateral thoracostomy tubes, mediastinal drains in place, . Partially imaged epicardial pacing wires and pulmonary arterial catheter. Prosthetic valve, median sternotomy wires noted. Overlying cardiac monitoring wires. Ventriculoperitoneal shunt catheter overlies the right hemiabdomen. Dictated by: Flor Whitaker M.D. The radiology attending physician has personally reviewed this study, and had reviewed and/or edited this written report and agrees with it. Electronically signed by: Flor Mao M.D. us Alla STEWART IMG XR PROCEDURES Final Result * Oxyhemoglobin, central venous (01/18/2025 5:50 PM CDT) Oxyhemoglobin, CV 61.9 % Comment: Interpretive Data No reference range established. Current interpretive data was last revised 2019. Blood 01/18/2025 5:50 PM CDT 01/18/2025 5:56 PM CDT Alla Rodriguezor STOKER ERECTOR AND SERVICER LAB BLOOD ORDERABLES Fin al Result Performing Organization Address City/[facility] Co de Phone Number [facility] [place] [employer] [place] [address] * Oxyhemoglobin, pulmonary artery (01/18/2025 4:19 PM CDT) Oxyhemoglobin, PA 62.8 % Comment: Interpretive Data No reference range established. Current interpretive data was last revised 2019. Blood 01/18/2025 4:19 PM CDT 01/18/2025 4:29 PM CDT Alla Rodriguezor STOK[employer] E[employer]OR [employer] SERVICER LAB BLOOD ORDERABLES Fin al Result Performing Organization Address [facility] Co de Phone Number [facility] Department [place] [employer] [place] [address] * (ABNORMAL) Hemoglobin total, pulmonary artery (01/18/2025 4:19 PM CDT) Hemoglobin total, PA 7.7(L) 11.9 - 15.5 g/dL Blood 01/18/2025 4:19 PM CDT 01/18/2025 4:29 PM CDT Lina Doshi STOKER ERECTOR AND SERVICER LAB BLOOD ORDERABLES Fi nal Result Performing Organization Address City/[facility] Co de Phone Number [facility] Department [place] [address] * (ABNORMAL) Blood gas, arterial (01/18/2025 4:19 PM CDT) pH, Art 7.39 7.35 - 7.45 PCO2, Arterial 34(L) 35 - 45 mmHg [facility] PO2, Arterial 119(H) 83 - 108 mmHg [facility] HCO3 Art (Calculated) 20 20 - 30 mmol/L [facility] BE, art -4 mmol/L [facility] Comment: Interpretive Data No Reference Range Established Current Interpretive Data was last revised on 2017 O2 Sat Art (Measured) 99(H) 90 - 95 % [facility] Blood 01/18/2025 4:19 PM CDT 01/18/2025 4:29 PM CDT Alla Youngblood STOKER ERECTOR AND SERVICER LAB BLOOD ORDERABLES Fin al Result Performing Organization Address City/[facility]/ZIP Co de Phone Number [facility] Department [place] [address] * POCT glucose (01/18/2025 4:18 PM CDT) Glucose, POC 139 70 - 199 mg/dL Blood 01/18/2025 4:18 PM CDT 01/18/2025 4:18 PM CDT Brenna Chavez MD LAB POCT ORDERABLES - DEVICE Fin al Result [facility] [place] [address] * POCT glucose (01/18/2025 11:16 AM CDT) Glucose, POC 137 70 - 199 mg/dL Blood 01/18/2025 11:1 6 AM CDT 01/18/2025 11:16 AM CDT Brenna Chavez MD LAB POCT ORDERABLES - DEVICE Fin al Result Performing Organization Address [facility] Co de Phone Number [facility] [place] [address] * (ABNORMAL) POCT glucose (01/18/2025 11:15 AM CDT) Glucose, POC 316(H) 70 - 199 mg/dL Blood 01/18/2025 11:1 5 AM CDT 01/18/2025 11:15 AM CDT Brenna Chavez MD LAB POCT ORDERABLES - DEVICE Fin al Result Performing Organization Address [facility] de Phone Number [facility] [place] [address] * Oxyhemoglobin, pulmonary artery (01/18/2025 7:53 AM CDT) Oxyhemoglobin, PA 79.8 % Comment: Interpretive Data No reference range established. Current interpretive data was last revised 2019. Blood 01/18/2025 7:53 AM CDT 01/18/2025 7:57 AM CDT us Alla Youngblood NP LAB BLOOD ORDERABLES Fin al Result Performing Organization Address [facility] Co de Phone Number [facility] [place] [address] * (ABNORMAL) Hemoglobin total, pulmonary artery (01/18/2025 7:53 AM CDT) Hemoglobin total, PA 7.8(L) 11.9 - 15.5 g/dL Blood 01/18/2025 7:53 AM CDT 01/18/2025 7:57 AM CDT Lina Doshi STOKER ERECTOR AND SERVICER LAB BLOOD ORDERABLES Fi nal Result [facility] [place] [employer] [place] [address] * Potassium, whole blood (01/18/2025 7:53 AM CDT) Pathologist [facility] [place] Potassium, bld 4.5 3.3 - 4.9 mmol/L Blood 01/18/2025 7:53 AM CDT 01/18/2025 7:57 AM CDT Alla Lagunas Tonsor STOKER ERECTOR AND SERVICER LAB BLOOD ORDERABLES Fin al Result Performing Organization Address [facility] Co de Phone Number [facility] [place] [address] * (ABNORMAL) Blood gas, arterial (01/18/2025 7:53 AM CDT) [facility] pH, Art 7.35 7.35 - 7.45 PCO2, Arterial 34(L) 35 - 45 mmHg [facility] PO2, Arterial 165(H) 83 - 108 mmHg [facility] HCO3 Art (Calculated) 18(L) 20 - 30 mmol/L [facility] BE, art -6 mmol/L [facility] Comment: Interpretive Data No Reference Range Established Current Interpretive Data was last revised on 2017 O2 Sat Art (Measured) 100(H) 90 - 95 % [facility] Blood 01/18/2025 7:53 AM CDT 01/18/2025 7:57 AM CDT Alla Lagunas Tonsor STOKER ERECTOR AND SERVICER LAB BLOOD ORDERABLES Fin al Result Performing Organization Address City/[facility] [place] [address] * POCT glucose (01/18/2025 7:52 AM CDT) Glucose, POC 133 70 - 199 mg/dL Blood 01/18/2025 7:52 AM CDT 01/18/2025 7:52 AM CDT Brenna Chavez MD LAB POCT ORDERABLES - DEVICE Fin al Result [facility] Department [place] [address] * Critical Care (01/18/2025 6:44 AM CDT) Narrative Mary Grider MD - 01/18/2025 6:44 AM CDT Mary Grider MD 01/18/2025 6:05 PM Critical Care Performed by: Alla Mabry PA Authorized by: Alla Mabry PA CRITICAL CARE: Team: 56 CTICU Shift: AM Level of Billing: Critical Care My time spent with this patient was 90 minutes: Critical Provider Statement: I have seen and examined the patient on this day of service. I have reviewed and confirmed the history, physical exam, laboratory and radiologic data as documented in the signed ICU note. I have reviewed and discussed my treatment plan with the ICU team and other medical/sephora product consultant staff, making frequent assessments and decisions regarding this patient's complex medical care. Critical Care time was exclusive of time spent performing separately billed procedures, treating other patients, and teaching. This time was in addition to and separate from critical care provided by other practitioners in my group on this day of service. Critical Care was necessary to treat or prevent imminent or life-threatening deterioration of the following conditions: Alla STEWART IN CLINIC/BEDSIDE ORDER RILEY Final Result * Infection Prevention Blade auris PCR, surveillance Axilla/Groin (01/18/2025 6:34 AM CDT) Blade auris DNA Not Detected Not Detected [facility] Comment: Interpretive Data Testing performed by [facility] Molecular Infectious Disease Laboratory using the Rich chioma 6800 Blade auris assay. This assay detects DNA from Blade auris using Real-Time PCR. This assay is laboratory developed and is not cleared by the [facility] Food and Drug Administration. The performance characteristics have been verified by the [facility] Molecular Infectious Disease Laboratory. Axilla/Groin 01/18/2025 6:34 AM CDT 01/18/2025 6:46 AM CDT Sukhdev Bell MD LAB MICROBIOLOGY - GENERAL ORDER RILEY Final Result Performing Organization Address City/[facility]/ZIP Co de Phone Number [facility] Department [place] [address] [facility] * POCT glucose (01/18/2025 6:24 AM CDT) Glucose, POC 157 70 - 199 mg/dL Blood 01/18/2025 6:24 AM CDT 01/18/2025 6:24 AM CDT Brenna Chavez MD LAB POCT ORDERABLES - DEVICE Fin al Result Performing Organization Address [facility] Co de Phone Number [facility] Department [place] [address] * CT Head WO Contrast (01/18/2025 5:17 AM CDT) Anatomical Region Laterality Modality Head and Neck N/A Computed Tomogra phy 01/18/2025 5:47 AM CDT Impressions 01/18/2025 8:41 AM CDT 1. Right frontal approach ventriculostomy catheter in unchanged position and no significant interval change in ventriculomegaly when compared to CT 01/11/2025. 2. Trace decreasing bilateral frontal convexity subdural collections. No new intracranial hemorrhage. Dictated by: Jordin Jimenez MD The radiology attending physician has personally reviewed this study, and had reviewed and/or edited this written report and agrees with it. Electronically signed by: Willow Rodriguez M.D. Narrative 01/18/2025 8:41 AM CDT EXAMINATION: CT head without contrast HISTORY: Stroke, follow-up. TECHNIQUE: CT of the head was performed with images acquired from skull base to vertex without intravenous contrast. COMPARISON: MRI 01/08/[address] 01/11/2025 FINDINGS: Right frontal approach ventriculostomy catheter unchanged in position. Compared to CT 01/11/2025, there has been no significant interval change in ventriculomegaly. There is edema along the catheter tract. Imaged portion of the catheter is intact. There remain bilateral frontal convexity subdural collections, which are hypodense, and slightly decreased in size compared to prior CT. No new intracranial hemorrhage. No mass effect or midline shift is present. There are multiple small periventricular white matter hypodensities, most likely sequela of chronic small vessel disease. Bilateral cataract extractions. The visualized portions of the mastoids are normal. The visualized portions of the paranasal sinuses are normal. Partially imaged nasogastric tube. No fractures are identified. Procedure Note VoWillow MD - 01/18/2025 EXAMINATION: CT head without contrast HISTORY: Stroke, follow-up. TECHNIQUE: CT of the head was performed with images acquired from skull base to vertex without intravenous contrast. COMPARISON: MRI 01/08/[address] 01/11/2025 FINDINGS: Right frontal approach ventriculostomy catheter unchanged in position. Compared to CT 01/11/2025, there has been no significant interval change in ventriculomegaly. There is edema along the catheter tract. Imaged portion of the catheter is intact. There remain bilateral frontal convexity subdural collections, which are hypodense, and slightly decreased in size compared to prior CT. No new intracranial hemorrhage. No mass effect or midline shift is present. There are multiple small periventricular white matter hypodensities, most likely sequela of chronic small vessel disease. Bilateral cataract extractions. The visualized portions of the mastoids are normal. The visualized portions of the paranasal sinuses are normal. Partially imaged nasogastric tube. No fractures are identified. IMPRESSION: 1. Right frontal approach ventriculostomy catheter in unchanged position and no significant interval change in ventriculomegaly when compared to CT 01/11/2025. 2. Trace decreasing bilateral frontal convexity subdural collections. No new intracranial hemorrhage. Dictated by: Jordin Jimenez MD The radiology attending physician has personally reviewed this study, and had reviewed and/or edited this written report and agrees with it. Electronically signed by: Willow Rodriguez M.D. Lina Doshi STOKER ERECTOR AND SERVICER IMG CT PROCEDURES Final Result * POCT glucose (01/18/2025 3:36 AM CDT) Glucose, POC 145 70 - 199 mg/dL Blood 01/18/2025 3:36 AM CDT 01/18/2025 3:36 AM CDT Brenna Chavez MD LAB POCT ORDERABLES - DEVICE Fin al Result Performing Organization Address [facility] de Phone Number [facility] Department [place] [address] * Oxyhemoglobin, pulmonary artery (01/18/2025 3:31 AM CDT) Oxyhemoglobin, PA 62.3 % Comment: Interpretive Data No reference range established. Current interpretive data was last revised 2019. Blood 01/18/2025 3:31 AM CDT 01/18/2025 3:45 AM CDT Alla Youngblood STOKER ERECTOR AND SERVICER LAB BLOOD ORDERABLES Fin al Result Performing Organization Address [facility] de Phone Number [facility] Department [place] [address] * (ABNORMAL) Hemoglobin total, pulmonary artery (01/18/2025 3:31 AM CDT) Hemoglobin total, PA 8.2(L) 11.9 - 15.5 g/dL Blood 01/18/2025 3:31 AM CDT 01/18/2025 3:45 AM CDT Lina Doshi STOKER ERECTOR AND SERVICER LAB BLOOD ORDERABLES Fi nal Result Performing Organization Address [facility] Co de Phone Number [facility] Department [place] [address] * eGFR (01/18/2025 3:31 AM CDT) Pathologist [facility] [place] eGFR 63 >=60 mL/min/1. 73 m2 Comment: Interpretive Data Reference Interval Normal >/= 90 mL/min/1.73m2 Mildly decreased* 60 - 89 mL/min/1.73m2 Mildly to moderately decreased 45 - 59 mL/min/1.73m2 Moderately to severely decreased 30 - 44 mL/min/1.73m2 Severely decreased 15 - 29 mL/min/1.73m2 Kidney Failure < 15 mL/min/1.73m2 *Relative to young adult level Estimated glomerular filtration rate is determined by the 2020 CKD-EPI equation recommended by the National Kidney Foundation (A Unifying Approach to GFR Estimation: Recommendations of the NKF-ASK Task Force on Reassessing the Inclusion of Race in Diagnosing Kidney Disease, JASN 2020). The CKD-EPI equation should not be used for patients with unstable renal function and has not been validated in children and those over 70. Current interpretive data was last reviewed 2021. Blood 01/18/2025 3:31 AM CDT 01/18/2025 3:49 AM CDT Alla Youngblood NP LAB BLOOD ORDERABLES Fin al Result [facility] [place] [address] * (ABNORMAL) CBC without differential (01/18/2025 3:31 AM CDT) Pathologist [facility] [place] WBC 14.79(H) 3.80 - 9.90 K/cumm Hgb 8.0(L) 11.9 - 15.5 g/dL [facility] Hct 23.3(L) 35.6 - 45.5 % [facility] Plt 56(L) 150 - 400 K/cumm [facility] MPV 10.5 9.1 - 12.3 fL [facility] RBC 2.70(L) 3.90 - 5.20 M/cumm [facility] MCV 86.3 81.3 - 96.4 fL [facility] MCH 29.6 27.1 - 33.3 pg [facility] MCHC 34.3 32.3 - 35.7 g/dL [facility] RDW CV 17.7(H) 11.1 - 14.9 % [facility] RDW SD 55.5(H) 35.7 - 48.1 fL [facility] NRBC abs 0.02(H) 0.00 - 0.01 K/cumm [facility] Blood 01/18/2025 3:31 AM CDT 01/18/2025 3:49 AM CDT Alla Youngblood LAB BLOOD ORDERABLES Fin al Result Performing Organization Address [facility] Co de Phone Number [facility] Department [place] [employer] [place] [address] * Type and screen (01/18/2025 3:31 AM CDT) Daly, indirect Negative ABO Rh O Negative [facility] Blood 01/18/2025 3:31 AM CDT 01/18/2025 3:48 AM CDT Narrative [facility] - 01/18/2025 4:36 AM CDT Has the patient had Daratumumab or Isatuximab in the past 6 months?->Unknown Alla Youngblood LAB BLOOD BANK TEST ORDE RABLES Final Result Performing Organization Address City/[facility] Co de Phone Number [facility] [place] [employer] [place] [address] * Phosphorus (01/18/2025 3:31 AM CDT) Phosphorus, pl 3.6 2.3 - 4.5 mg/dL Blood 01/18/2025 3:31 AM CDT 01/18/2025 3:49 AM CDT Alla Lagunas Tonsor STOKER ERECTOR AND SERVICER LAB BLOOD ORDERABLES Fin al Result Performing Organization Address City/[facility] Co de Phone Number [facility] [place] [place] [address] * Magnesium (01/18/2025 3:31 AM CDT) Pathologist [facility] [place] Magnesium 2.0 1.4 - 2.5 mg/dL Blood 01/18/2025 3:31 AM CDT 01/18/2025 3:49 AM CDT Alla Lagunas Tonsor STOKER ERECTOR AND SERVICER LAB BLOOD ORDERABLES Fin al Result Performing Organization Address [facility] [place] [address] * (ABNORMAL) Blood gas, arterial (01/18/2025 3:31 AM CDT) pH, Art 7.30(L) 7.35 - 7.45 PCO2, Arterial 41 35 - 45 mmHg [facility] PO2, Arterial 156(H) 83 - 108 mmHg [facility] HCO3 Art (Calculated) 19(L) 20 - 30 mmol/L [facility] BE, art -6 mmol/L [facility] Comment: Interpretive Data No Reference Range Established Current Interpretive Data was last revised on 2017 O2 Sat Art (Measured) 99(H) 90 - 95 % [facility] Blood 01/18/2025 3:31 AM CDT 01/18/2025 3:45 AM CDT Alla Lagunas Tonsor STOKER ERECTOR AND SERVICER LAB BLOOD ORDERABLES Fin al Result Performing Organization Address [facility] [place] [address] * (ABNORMAL) Basic metabolic panel (01/18/2025 3:31 AM CDT) Sodium 133(L) 135 - 145 mmol/L Potassium, pl 4.5 3.3 - 4.9 mmol/L [facility] Chloride 104 97 - 110 mmol/L [facility] CO2 21(L) 22 - 32 mmol/L [facility] Anion gap 8 2 - 15 mmol/L [facility] BUN 10 6 - 25 mg/dL [facility] Creatinine 0.93 0.60 - 1.10 mg/dL [facility] Glucose 145 70 - 199 mg/dL [facility] Comment: Interpretive Data Fasting glucose >/= 126 mg/dl is diagnostic for diabetes. Fasting is defined as no caloric intake for at least 8 hours. Fasting glucose between 100 mg/dl to 125 mg/dl is diagnostic of prediabetes. In a patient with classic symptoms of hyperglycemia or hyperglycemic crisis, a random glucose >/= 200 mg/dl is diagnostic for diabetes. In the absence of unequivocal hyperglycemia, results should be confirmed by repeat testing. The classification and Diagnosis of Diabetes Diabetes Care 202; 46: S19-S40. Current interpretive data was last revised 2022. Calcium 8.1(L) 8.5 - 10.3 mg/dL [facility] Blood 01/18/2025 3:31 AM CDT 01/18/2025 3:49 AM CDT Alla Youngblood NP LAB BLOOD ORDERABLES Fin al Result Performing Organization Address City/[facility]/ZIP Co de Phone Number [facility] Department [place] [address] * POCT glucose (01/18/2025 2:13 AM CDT) Glucose, POC 151 70 - 199 mg/dL Blood 01/18/2025 2:13 AM CDT 01/18/2025 2:13 AM CDT Brenna Chavez MD LAB POCT ORDERABLES - DEVICE Fin al Result Performing Organization Address [facility]/ZIP Co de Phone Number [facility] [employer] [place] [address] * POCT glucose (01/18/2025 12:03 AM CDT) Glucose, POC 150 70 - 199 mg/dL Blood 01/18/2025 12:0 3 AM CDT 01/18/2025 12:03 AM CDT Brenna Chavez MD LAB POCT ORDERABLES - DEVICE Fin al Result Performing Organization Address City/[facility] [place] [address] * Oxyhemoglobin, pulmonary artery (01/17/2025 11:57 PM CDT) Oxyhemoglobin, PA 66.3 % Comment: Interpretive Data No reference range established. Current interpretive data was last revised 2019. Blood 01/17/2025 11:5 7 PM CDT 01/18/2025 12:14 AM CDT Alla Youngblood STOKER ERECTOR AND SERVICER LAB BLOOD ORDERABLES Fin al Result Performing Organization Address [facility] [place] [address] * (ABNORMAL) Hemoglobin total, pulmonary artery (01/17/2025 11:57 PM CDT) Hemoglobin total, PA 8.4(L) 11.9 - 15.5 g/dL Blood 01/17/2025 11:5 7 PM CDT 01/18/2025 12:14 AM CDT Lina Doshi STOKER ERECTOR AND SERVICER LAB BLOOD ORDERABLES Fi nal Result Performing Organization Address City/[facility]/ZIP Co de Phone Number [facility] [place] [address] * (ABNORMAL) Blood gas, arterial (01/17/2025 11:57 PM CDT) pH, Art 7.30(L) 7.35 - 7.45 PCO2, Arterial 39 35 - 45 mmHg [facility] PO2, Arterial 129(H) 83 - 108 mmHg [facility] HCO3 Art (Calculated) 18(L) 20 - 30 mmol/L [facility] BE, art -7 mmol/L [facility] Comment: Interpretive Data No Reference Range Established Current Interpretive Data was last revised on 2017 O2 Sat Art (Measured) 99(H) 90 - 95 % [facility] Blood 01/17/2025 11:5 7 PM CDT 01/18/2025 12:14 AM CDT Alla Youngblood STOKER ERECTOR AND SERVICER LAB BLOOD ORDERABLES Fin al Result [facility] Department [place] [address] * XR Abdomen 1 View AP (01/17/2025 11:53 PM CDT) Anatomical Region Laterality Modality Body, Abdomen N/A Digital Radiogra phy 01/18/2025 8:13 AM CDT Impressions 01/18/2025 8:13 AM CDT Endogastric tube side port projecting over the gastric body with tip projecting over the peripyloric region. Electronically signed by: Jeremiah Montelongo M.D. Narrative 01/18/2025 8:13 AM CDT EXAMINATION: 1. Abdomen, one view. 2. Abdomen, one view. HISTORY: Check tube placement. COMPARISON: CT 12/27/2024 FINDINGS: 5:03 PM: The side-port of an endogastric tube projects over the gastric body, with tip projecting over the peripyloric region. Multiple thoracic drains, temporary epicardial pacer leads, pulmonary arterial catheter, median sternotomy wires, and prosthetic valve are partially imaged. 11:31 PM: The endogastric tube is unchanged in position. Procedure Note Jeremiah Montelongo MD - 01/18/2025 EXAMINATION: 1. Abdomen, one view. 2. Abdomen, one view. HISTORY: Check tube placement. COMPARISON: CT 12/27/2024 FINDINGS: 5:03 PM: The side-port of an endogastric tube projects over the gastric body, with tip projecting over the peripyloric region. Multiple thoracic drains, temporary epicardial pacer leads, pulmonary arterial catheter, median sternotomy wires, and prosthetic valve are partially imaged. 11:31 PM: The endogastric tube is unchanged in position. IMPRESSION: Endogastric tube side port projecting over the gastric body with tip projecting over the peripyloric region. Electronically signed by: Jeremiah Montelongo M.D. Lina Doshi STOKER ERECTOR AND SERVICER IMG XR PROCEDURES Final Result * POCT glucose (01/17/2025 10:32 PM CDT) Pathologist [facility] [place] Glucose, POC 163 70 - 199 mg/dL Blood 01/17/2025 10:3 2 PM CDT 01/17/2025 10:32 PM CDT Brenna Chavez MD LAB POCT ORDERABLES - DEVICE Fin al Result [facility] Department [place] [address] * (ABNORMAL) Blood gas, arterial (01/17/2025 10:32 PM CDT) Pathologist [facility] [place] pH, Art 7.30(L) 7.35 - 7.45 PCO2, Arterial 37 35 - 45 mmHg [facility] PO2, Arterial 119(H) 83 - 108 mmHg [facility] HCO3 Art (Calculated) 18(L) 20 - 30 mmol/L [facility] BE, art -7 mmol/L [facility] Comment: Interpretive Data No Reference Range Established Current Interpretive Data was last revised on 2017 O2 Sat Art (Measured) 99(H) 90 - 95 % [facility] Blood 01/17/2025 10:3 2 PM CDT 01/17/2025 10:36 PM CDT Result [facility] Brenna Chavez MD LAB BLOOD ORDERABLES Final Resul t Performing Organization Address [facility] de Phone Number [facility] [place] [employer] [place] [address] * POCT glucose (01/17/2025 8:46 PM CDT) Glucose, POC 147 70 - 199 mg/dL Blood 01/17/2025 8:46 PM CDT 01/17/2025 8:46 PM CDT Result [facility] Brenna Chavez MD LAB POCT ORDERABLES - DEVICE Fin al Result Performing Organization Address [facility] de Phone Number [facility] [employer] [place] [address] * Oxyhemoglobin, pulmonary artery (01/17/2025 7:03 PM CDT) Oxyhemoglobin, PA 60.9 % Comment: Interpretive Data No reference range established. Current interpretive data was last revised 2019. Blood 01/17/2025 7:03 PM CDT 01/17/2025 7:08 PM CDT Alla Youngblood NP LAB BLOOD ORDERABLES Fin al Result Performing Organization Address [facility] Co de Phone Number [facility] [place] [place] [address] * (ABNORMAL) Hemoglobin total, pulmonary artery (01/17/2025 7:03 PM CDT) Hemoglobin total, PA 8.2(L) 11.9 - 15.5 g/dL Blood 01/17/2025 7:03 PM CDT 01/17/2025 7:08 PM CDT Lina Doshi STOKER ERECTOR AND SERVICER LAB BLOOD ORDERABLES Fi nal Result Performing Organization Address [facility] Co de Phone Number [facility] [place] [address] * Potassium, whole blood (01/17/2025 7:03 PM CDT) Potassium, bld 4.4 3.3 - 4.9 mmol/L Blood 01/17/2025 7:03 PM CDT 01/17/2025 7:08 PM CDT Alla Youngblood STOKER ERECTOR AND SERVICER LAB BLOOD ORDERABLES Fin al Result Performing Organization Address [facility] de Phone Number [facility] Department [place] [address] * POCT glucose (01/17/2025 7:03 PM CDT) Glucose, POC 139 70 - 199 mg/dL Blood 01/17/2025 7:03 PM CDT 01/17/2025 7:03 PM CDT Brenna Chavez MD LAB POCT ORDERABLES - DEVICE Fin al Result Performing Organization Address [facility] de Phone Number [facility] [place] [address] * (ABNORMAL) Lactate, whole blood (01/17/2025 7:03 PM CDT) Lactate, bld 2.2(H) 0.7 - 2.0 mmol/L Blood 01/17/2025 7:03 PM CDT 01/17/2025 7:08 PM CDT Alla Lagunas Tonsor STOKER ERECTOR AND SERVICER LAB BLOOD ORDERABLES Fin al Result Performing Organization Address [facility] de Phone Number [facility] [place] [address] * (ABNORMAL) Blood gas, arterial (01/17/2025 7:03 PM CDT) pH, Art 7.40 7.35 - 7.45 PCO2, Arterial 29(L) 35 - 45 mmHg [facility] PO2, Arterial 180(H) 83 - 108 mmHg [facility] HCO3 Art (Calculated) 18(L) 20 - 30 mmol/L [facility] BE, art -6 mmol/L [facility] Comment: Interpretive Data No Reference Range Established Current Interpretive Data was last revised on 2017 O2 Sat Art (Measured) 100(H) 90 - 95 % [facility] Blood 01/17/2025 7:03 PM CDT 01/17/2025 7:08 PM CDT Alla Rodriguezor STOKER ERECTOR AND SERVICER LAB BLOOD ORDERABLES Fin al Result Performing Organization Address [facility] de Phone Number [facility] Department [place] [address] * Critical Care (01/17/2025 6:34 PM CDT) Narrative Mary Grider MD - 01/17/2025 6:34 PM CDT Mary Grider MD 01/18/2025 12:56 PM Critical Care Performed by: Lina Doshi NP Authorized by: Lina Doshi NP CRITICAL CARE: Team: 56 CTICU Shift: PM Level of Billing: Critical Care My time spent with this patient was 95 minutes: Critical Provider Statement: I have seen and examined the patient on this day of service. I have reviewed and confirmed the history, physical exam, laboratory and radiologic data as documented in the signed ICU note. I have reviewed and discussed my treatment plan with the ICU team and other medical/sephora product consultant staff, making frequent assessments and decisions regarding this patient's complex medical care. Critical Care time was exclusive of time spent performing separately billed procedures, treating other patients, and teaching. This time was in addition to and separate from critical care provided by other practitioners in my group on this day of service. Critical Care was necessary to treat or prevent imminent or life-threatening deterioration of the following conditions: I spent time reviewing and interpreting data from bedside monitors, laboratory results, and imaging, I spent time discussing the management of this critically ill patient with consultants and the medical staff and I spent time documenting in the medical record us Lina Doshi NP IN CLINIC/BEDSIDE ORDER RILEY Final Result * XR Abdomen AP 1 View - KUB (01/17/2025 5:47 PM CDT) Anatomical Region Laterality Modality Body, Abdomen N/A Digital Radiogra phy 01/18/2025 8:13 AM CDT Impressions 01/18/2025 8:13 AM CDT Endogastric tube side port projecting over the gastric body with tip projecting over the peripyloric region. Electronically signed by: Jeremiah Montelongo M.D. Narrative 01/18/2025 8:13 AM CDT EXAMINATION: 1. Abdomen, one view. 2. Abdomen, one view. HISTORY: Check tube placement. COMPARISON: CT 12/27/2024 FINDINGS: 5:03 PM: The side-port of an endogastric tube projects over the gastric body, with tip projecting over the peripyloric region. Multiple thoracic drains, temporary epicardial pacer leads, pulmonary arterial catheter, median sternotomy wires, and prosthetic valve are partially imaged. 11:31 PM: The endogastric tube is unchanged in position. Procedure Note Jeremiah Montelongo MD - 01/18/2025 EXAMINATION: 1. Abdomen, one view. 2. Abdomen, one view. HISTORY: Check tube placement. COMPARISON: CT 12/27/2024 FINDINGS: 5:03 PM: The side-port of an endogastric tube projects over the gastric body, with tip projecting over the peripyloric region. Multiple thoracic drains, temporary epicardial pacer leads, pulmonary arterial catheter, median sternotomy wires, and prosthetic valve are partially imaged. 11:31 PM: The endogastric tube is unchanged in position. IMPRESSION: Endogastric tube side port projecting over the gastric body with tip projecting over the peripyloric region. Electronically signed by: Jeremiah Montelongo M.D. Alla Youngblood [employer]OKER E[employer]OR AND SERVICER IMG XR PROCEDURES Final Result * XR Chest 1 View (01/17/2025 5:47 PM CDT) Anatomical Region Laterality Modality Body, Chest N/A Digital Radiogra phy 01/17/2025 6:15 PM CDT Impressions 01/17/2025 6:15 PM CDT Comparison 01/07/2025. New median sternotomy wires seen. The wires are aligned and intact. Mitral valve annuloplasty seen. Gastric tube courses caudal to the diaphragm. Mediastinal tube, pericardial drain and bilateral chest tubes now seen. [place]arl catheter tip projects over the right pulmonary artery. Endotracheal tube tip approximately 3 cm above the sameera. Right internal jugular central venous catheter in place but the tip is obscured. Cardiomediastinal silhouette in keeping with postoperative change. New patchy left retrocardiac opacity most compatible with atelectasis. No pulmonary edema seen. No pneumothorax or pleural effusion seen. Electronically signed by: Oscar Hazel M.D. Narrative 01/17/2025 6:15 PM CDT EXAMINATION: 1 view chest radiograph Procedure Note Oscar Hazel MD - 01/17/2025 EXAMINATION: 1 view chest radiograph IMPRESSION: Comparison 01/07/2025. New median sternotomy wires seen. The wires are aligned and intact. Mitral valve annuloplasty seen. Gastric tube courses caudal to the diaphragm. Mediastinal tube, pericardial drain and bilateral chest tubes now seen. [place]Karl catheter tip projects over the right pulmonary artery. Endotracheal tube tip approximately 3 cm above the sameera. Right internal jugular central venous catheter in place but the tip is obscured. Cardiomediastinal silhouette in keeping with postoperative change. New patchy left retrocardiac opacity most compatible with atelectasis. No pulmonary edema seen. No pneumothorax or pleural effusion seen. Electronically signed by: Oscar Hazel M.D. Brenna Chavez MD IMG XR PROCEDURES Final Result * (ABNORMAL) POC Blood Gas and Chemistries, Arterial - (01/17/2025 5:43 PM CDT) pH, Art POC 7.40 7.35 - 7.45 pCO2, Art POC 28(L) 35 - 45 mmHg [facility] pO2, Art POC 177(H) 83 - 108 mmHg [facility] Na, POC 131(L) 135 - 145 mmol/L [facility] K POC 4.4 3.3 - 4.9 mmol/L [facility] Comment: Interpretive Data Not all point of care methods assess for hemolysis. Confirm with instrument and retest K+ if not consistent with clinical signs and symptoms. Current Interpretive Data was last revised on 2023. Cl, POC 104 97 - 110 mmol/L [facility] Ionized Ca, POC 4.91 4.50 - 5.10 mg/dL [facility] Glucose, POC 159 70 - 199 mg/dL [facility] Lactate POC 2.5(H) 0.7 - 2.0 mmol/L [facility] SO2 (edd) arterial 100(H) 90 - 95 % [facility] Base excess, POC -6.6 mmol/L [facility] HCO3, Art POC 17(L) 20 - 30 mmol/L [facility] Hct, POC 27.0(L) 36.3 - 45.3 % [facility] Total Hb, POC 8.9(L) 11.9 - 15.5 g/dL [facility] Blood 01/17/2025 5:43 PM CDT 01/17/2025 5:43 PM CDT Brenna Chavez MD LAB POCT ORDERABLES - DEVICE Fin al Result [facility] One [facility] Department [place] [address] * Oxyhemoglobin, pulmonary artery (01/17/2025 5:37 PM CDT) Oxyhemoglobin, PA 64.3 % Comment: Interpretive Data No reference range established. Current interpretive data was last revised 2019. Blood 01/17/2025 5:37 PM CDT 01/17/2025 5:51 PM CDT Alla Youngblood NP LAB BLOOD ORDERABLES Fin al Result [facility] [place] [employer] [place] [address] * eGFR (01/17/2025 4:18 PM CDT) eGFR 75 >=60 mL/min/1. 73 m2 Comment: Interpretive Data Reference Interval Normal >/= 90 mL/min/1.73m2 Mildly decreased* 60 - 89 mL/min/1.73m2 Mildly to moderately decreased 45 - 59 mL/min/1.73m2 Moderately to severely decreased 30 - 44 mL/min/1.73m2 Severely decreased 15 - 29 mL/min/1.73m2 Kidney Failure < 15 mL/min/1.73m2 *Relative to young adult level Estimated glomerular filtration rate is determined by the 2020 CKD-EPI equation recommended by the National Kidney Foundation (A Unifying Approach to GFR Estimation: Recommendations of the NKF-ASK Task Force on Reassessing the Inclusion of Race in Diagnosing Kidney Disease, JASN 2020). The CKD-EPI equation should not be used for patients with unstable renal function and has not been validated in children and those over 70. Current interpretive data was last reviewed 2021. Blood 01/17/2025 4:18 PM CDT 01/17/2025 5:09 PM CDT Brenna Chavez MD LAB BLOOD ORDERABLES Final Resul t [facility] Department [place] [employer] [place] [address] * aPTT (01/17/2025 4:18 PM CDT) aPTT 36 26 - 38 sec Comment: Interpretive Data Heparin therapeutic range: 66.0 - 100.0 seconds. Range based on correlation with therapeutic heparin activity range of 0.3 - 0.7 Units/mL. Current interpretive data was last revised on 2023. Blood 01/17/2025 4:18 PM CDT 01/17/2025 4:37 PM CDT Brenna Chavez MD LAB BLOOD ORDERABLES Final Resul t Performing Organization Address [facility] Co de Phone Number [facility] [place] [employer] [place] [address] * (ABNORMAL) Protime-INR (01/17/2025 4:18 PM CDT) PT 17.5(H) 10.2 - 13.5 sec INR 1.56(H) 0.90 - 1.20 [facility] Comment: Interpretive data Oral anticoagulant therapeutic ranges: Venous thromboembolism prophylaxis or treatment: 2.0-3.0 CARDIOLOGY Standard range: 2.0-3.0 High-intensity range: 2.5-3.5 Refer to indication-specific guidelines for appropriate target ranges for prosthetic heart valve replacement. Current interpretive data was last revised on 2019. Blood 01/17/2025 4:18 PM CDT 01/17/2025 4:37 PM CDT Brenna Chavez MD LAB BLOOD ORDERABLES Final Resul t [facility] [place] [employer] [place] [address] * (ABNORMAL) CBC without differential (01/17/2025 4:18 PM CDT) WBC 12.87(H) 3.80 - 9.90 K/cumm Hgb 9.0(L) 11.9 - 15.5 g/dL [facility] Hct 24.7(L) 35.6 - 45.5 % [facility] Plt 58(L) 150 - 400 K/cumm [facility] Comment:PLT delta due to desean gical procedure. MPV 9.6 9.1 - 12.3 fL [facility] RBC 2.93(L) 3.90 - 5.20 M/cumm [facility] MCV 84.3 81.3 - 96.4 fL [facility] Comment:MCV delta due to desean gical procedure. MCH 30.7 27.1 - 33.3 pg [facility] MCHC 36.4(H) 32.3 - 35.7 g/dL [facility] RDW CV 16.5(H) 11.1 - 14.9 % [facility] RDW SD 50.4(H) 35.7 - 48.1 fL [facility] NRBC abs 0.02(H) 0.00 - 0.01 K/cumm [facility] Blood 01/17/2025 4:18 PM CDT 01/17/2025 4:36 PM CDT Brenna Chavez MD LAB BLOOD ORDERABLES Final Resul t Performing Organization Address City/[facility] Co de Phone Number [facility] One [facility] Department [place] [address] * Type and screen (01/17/2025 4:18 PM CDT) ABO Rh O Negative [place], indirect Negative [facility] Blood 01/17/2025 4:18 PM CDT 01/17/2025 5:05 PM CDT Narrative [facility] - 01/17/2025 6:00 PM CDT Has the patient had Daratumumab or Isatuximab in the past 6 months?->Unknown Brenna Chavez MD LAB BLOOD BANK TEST ORDERABLES F inal Result [facility] Department [place] [address] * Magnesium (01/17/2025 4:18 PM CDT) [facility] Magnesium 2.2 1.4 - 2.5 mg/dL Blood 01/17/2025 4:18 PM CDT 01/17/2025 4:54 PM CDT Brenna Chavez MD LAB BLOOD ORDERABLES Final Resul t Performing Organization Address [facility] Co de Phone Number [facility] Department [place] [address] * (ABNORMAL) Creatine kinase (CK), total (01/17/2025 4:18 PM CDT) [facility] CK 577(H) 30 - 200 Units/L Blood 01/17/2025 4:18 PM CDT 01/17/2025 4:54 PM CDT Brenna Chavez MD LAB BLOOD ORDERABLES Final Resul t Performing Organization Address [facility] de Phone Number [facility] Department [place] [address] * (ABNORMAL) Basic metabolic panel (01/17/2025 4:18 PM CDT) [facility] Sodium 135 135 - 145 mmol/L Potassium, pl 4.2 3.3 - 4.9 mmol/L [facility] Comment:Hemolyzed; Potassium value may be falsely elevated by as much as 0.3-0.5 mmol/L. Suggest redraw and reanalysis. Chloride 102 97 - 110 mmol/L [facility] Comment:Repeated and Verifie d CO2 20(L) 22 - 32 mmol/L [facility] Anion gap 13 2 - 15 mmol/L [facility] BUN 6 6 - 25 mg/dL [facility] Creatinine 0.80 0.60 - 1.10 mg/dL [facility] Glucose 135 70 - 199 mg/dL [facility] Comment: Interpretive Data Fasting glucose >/= 126 mg/dl is diagnostic for diabetes. Fasting is defined as no caloric intake for at least 8 hours. Fasting glucose between 100 mg/dl to 125 mg/dl is diagnostic of prediabetes. In a patient with classic symptoms of hyperglycemia or hyperglycemic crisis, a random glucose >/= 200 mg/dl is diagnostic for diabetes. In the absence of unequivocal hyperglycemia, results should be confirmed by repeat testing. The classification and Diagnosis of Diabetes Diabetes Care 2021; 46: S19-S40. Current interpretive data was last revised 2022. Calcium 8.6 8.5 - 10.3 mg/dL [facility] Blood 01/17/2025 4:18 PM CDT 01/17/2025 4:54 PM CDT us Brenna Chavez MD LAB BLOOD ORDERABLES Final Resul t [facility] One [facility] Department [place] [address] * (ABNORMAL) POC Blood Gas and Chemistries, Arterial - (01/17/2025 4:05 PM CDT) pH, Art POC 7.41 7.35 - 7.45 pCO2, Art POC 28(L) 35 - 45 mmHg [facility] pO2, Art POC 202(H) 83 - 108 mmHg [facility] Na, POC 132(L) 135 - 145 mmol/L [facility] K POC 4.2 3.3 - 4.9 mmol/L [facility] Comment: Interpretive Data Not all point of care methods assess for hemolysis. Confirm with instrument and retest K+ if not consistent with clinical signs and symptoms. Current Interpretive Data was last revised on 2023. Cl, POC 104 97 - 110 mmol/L [facility] Ionized Ca, POC 4.79 4.50 - 5.10 mg/dL [facility] Glucose, POC 141 70 - 199 mg/dL [facility] Lactate POC 2.2(H) 0.7 - 2.0 mmol/L [facility] SO2 (edd) arterial 100(H) 90 - 95 % [facility] Base excess, POC -6.0 mmol/L [facility] HCO3, Art POC 18(L) 20 - 30 mmol/L [facility] Hct, POC 28.0(L) 36.3 - 45.3 % [facility] Total Hb, POC 9.3(L) 11.9 - 15.5 g/dL [facility] Blood 01/17/2025 4:05 PM CDT 01/17/2025 4:05 PM CDT us Brenna Chavez MD LAB POCT ORDERABLES - DEVICE Fin al Result [facility] One [facility] Department [place] [address] * Critical Care (01/17/2025 3:04 PM CDT) Narrative Mary Grider MD - 01/17/2025 3:04 PM CDT Mary Grider MD 01/17/2025 6:12 PM Critical Care Performed by: Alla Youngblood NP Authorized by: Alla Youngblood NP CRITICAL CARE: Team: [facility] Shift: AM Level of Billing: Critical Care My time spent with this patient was 90 minutes: Critical Provider Statement: I have seen and examined the patient on this day of service. I have reviewed and confirmed the history, physical exam, laboratory and radiologic data as documented in the signed ICU note. I have reviewed and discussed my treatment plan with the ICU team and other medical/sephora product consultant staff, making frequent assessments and decisions regarding this patient's complex medical care. Critical Care time was exclusive of time spent performing separately billed procedures, treating other patients, and teaching. This time was in addition to and separate from critical care provided by other practitioners in my group on this day of service. Critical Care was necessary to treat or prevent imminent or life-threatening deterioration of the following conditions: I spent time reviewing and interpreting data from bedside monitors, laboratory results, and imaging, I spent time discussing the management of this critically ill patient with consultants and the medical staff and I spent time documenting in the medical record Alla Youngblood [employer]OK[employer] E[employer]OR AND SERVICER IN CLINIC/BEDSIDE ORDERA BLES Final Result * Transfuse RBC (01/17/2025 3:01 PM CDT) Blood Tommy Obando MD BLOOD TRANSFUSION ORDERABLES Fi nal Result [facility] Department [place] [address] * (ABNORMAL) POC Blood Gas and Chemistries, Arterial - (01/17/2025 2:59 PM CDT) pH, Art POC 7.47(H) 7.35 - 7.45 pCO2, Art POC 29(L) 35 - 45 mmHg [facility] pO2, Art POC 471(H) 83 - 108 mmHg [facility] Na, POC 131(L) 135 - 145 mmol/L [facility] K POC 4.3 3.3 - 4.9 mmol/L [facility] Comment: Interpretive Data Not all point of care methods assess for hemolysis. Confirm with instrument and retest K+ if not consistent with clinical signs and symptoms. Current Interpretive Data was last revised on 2023. Cl, POC 105 97 - 110 mmol/L [facility] Ionized Ca, POC 5.13(H) 4.50 - 5.10 mg/dL [facility] Glucose, POC 117 70 - 199 mg/dL [facility] Lactate POC 2.3(H) 0.7 - 2.0 mmol/L [facility] SO2 (edd) arterial 100(H) 90 - 95 % [facility] Base excess, POC -1.9 mmol/L [facility] HCO3, Art POC 21 20 - 30 mmol/L [facility] Hct, POC 29.0(L) 36.3 - 45.3 % [facility] Total Hb, POC 9.5(L) 11.9 - 15.5 g/dL [facility] Blood 01/17/2025 2:59 PM CDT 01/17/2025 2:59 PM CDT Brenna Chavez MD LAB POCT ORDERABLES - DEVICE Fin al Result Performing Organization Address [facility] Co de Phone Number [facility] [place] [address] * (ABNORMAL) POCT prothrombin time (01/17/2025 2:54 PM CDT) PT, POC 23.8(H) 11.7 - 16.6 sec INR, POC 1.8(H) 0.9 - 1.2 [facility] Blood 01/17/2025 2:54 PM CDT 01/17/2025 2:54 PM CDT Brenna Chavez MD LAB POCT ORDERABLES - DEVICE Fin al Result Performing Organization Address [facility] Co de Phone Number [facility] [place] [address] * POCT heparin/ACT CPB (01/17/2025 2:42 PM CDT) Heparin POC 0.0 units/mL ACT, CPB 119 112 - 174 sec [facility] Blood 01/17/2025 2:42 PM CDT 01/17/2025 2:42 PM CDT Brenna Chavez MD LAB POCT ORDERABLES - DEVICE Fin al Result Performing Organization Address City/[facility] Co de Phone Number [facility] [place] [address] * POCT Partial thromboplastin time (PTT) (01/17/2025 2:40 PM CDT) APTT, POC 32.7 32.5 - 46.1 sec Blood 01/17/2025 2:40 PM CDT 01/17/2025 2:40 PM CDT Brenna Chavez MD LAB POCT ORDERABLES - DEVICE Fin al Result Performing Organization Address [facility] Co de Phone Number [facility] [place] [address] * (ABNORMAL) POCT hemoglobin, hematocrit and platelet count (01/17/2025 2:37 PM CDT) Hgb, POC 7.7(L) 11.9 - 15.5 g/dL Hematocrit POC 21.7(L) 35.6 - 45.5 % [facility] Platelet POC 57(L) 150 - 400 K/cumm [facility] Blood 01/17/2025 2:37 PM CDT 01/17/2025 2:37 PM CDT Sukhdev Fritz MD LAB POCT ORDERABLE S - DEVICE Final Result Performing Organization Address [facility] Co de Phone Number [facility] [place] [address] * Transfuse RBC (01/17/2025 2:35 PM CDT) Blood Tommy Obando MD BLOOD TRANSFUSION ORDERABLES Fi nal Result Performing Organization Address [facility] Co de Phone Number [facility] [place] [employer] [place] [address] * (ABNORMAL) POC Blood Gas and Chemistries, Arterial - (01/17/2025 2:34 PM CDT) pH, Art POC 7.52(H) 7.35 - 7.45 pCO2, Art POC 27(L) 35 - 45 mmHg [facility] pO2, Art POC 469(H) 83 - 108 mmHg [facility] Na, POC 131(L) 135 - 145 mmol/L [facility] K POC 4.2 3.3 - 4.9 mmol/L [facility] Comment: Interpretive Data Not all point of care methods assess for hemolysis. Confirm with instrument and retest K+ if not consistent with clinical signs and symptoms. Current Interpretive Data was last revised on 2023. Cl, POC 105 97 - 110 mmol/L [facility] Ionized Ca, POC 5.50(H) 4.50 - 5.10 mg/dL [facility] Glucose, POC 123 70 - 199 mg/dL [facility] Lactate POC 2.3(H) 0.7 - 2.0 mmol/L [facility] SO2 (edd) arterial 99(H) 90 - 95 % [facility] Base excess, POC -0.4 mmol/L [facility] HCO3, Art POC 22 20 - 30 mmol/L [facility] Hct, POC 25.0(L) 36.3 - 45.3 % [facility] Total Hb, POC 8.3(L) 11.9 - 15.5 g/dL [facility] Blood 01/17/2025 2:34 PM CDT 01/17/2025 2:34 PM CDT Brenna Chavez MD LAB POCT ORDERABLES - DEVICE Fin al Result [facility] [place] [employer] [place] [address] * (ABNORMAL) POCT heparin/ACT CPB (01/17/2025 2:14 PM CDT) Heparin POC <2.8 units/mL ACT, CPB 673(H) 112 - 174 sec [facility] Blood 01/17/2025 2:14 PM CDT 01/17/2025 2:14 PM CDT Brenna Chavez MD LAB POCT ORDERABLES - DEVICE Fin al Result Performing Organization Address City/[facility]/ZIP Co de Phone Number [facility] Department [place] [employer] [place] [address] * (ABNORMAL) Tissue aerobic and anaerobic culture and gram stain Valve Mitral valve (01/17/2025 2:13 PM CDT) Direct Specimen Exam Molecular Analysis: Streptococcus agalactiae (Group B Streptococci) DNA detected. Broad Range Bacteria 16S rRNA gene PCR+Sequencing performed by [facility], [address] [place] [id number]. Direct Specimen Exam Stain: No polymorphonuclear leukocytes seen. No organisms seen. [facility] Report Final Report: No growth See above for molecular results. (.) [facility] Valve (Mitral valve) 01/17/2025 2:13 PM CDT 01/17/2025 5:07 PM CDT Narrative [facility] - 01/25/2025 1:17 PM CDT MITRAL VALVE VEGETATION Specimen collected in the operating room. Received in transport media. Testing performed by [facility] ([phone]) Specimens submitted from normally sterile body sites will have all bacterial morphotypes identified. Specimens that contain grossly mixed mario and/or are from body sites that are not normally sterile will be examined for Staphylococcus aureus, Pseudomonas aeruginosa, beta-hemolytic strep, vancomycin-resistant Enterococcus, Bacteroides, Parabacteroides, Clostridium perfringens and fungus. If any of these are isolated, the organism will be reported. Current interpretive data was last revised on 2019. Brenna Chavez MD LAB MICROBIOLOGY - GENERAL ORDER RILEY Final Result [facility] [place] [address] * Mycology (fungal) culture Valve Mitral valve (01/17/2025 2:13 PM CDT) Report Final Report: No growth of fungus Valve (Mitral valve) 01/17/2025 2:13 PM CDT 01/17/2025 5:07 PM CDT Narrative [facility] - 02/14/2025 7:55 AM [employer] MITRAL VALVE VEGETATION Specimen collected in the operating room. Received in transport media. Testing performed by [facility] ([phone]). Brenna Chavez MD LAB MICROBIOLOGY - GENERAL ORDER RILEY Final Result Performing Organization Address [facility] Co de Phone Number [facility] [place] [address] * (ABNORMAL) POCT heparin/ACT CPB (01/17/2025 1:39 PM CDT) Heparin POC <2.8 units/mL ACT, CPB 778(H) 112 - 174 sec [facility] Blood 01/17/2025 1:39 PM CDT 01/17/2025 1:39 PM CDT Brenna Chavez MD LAB POCT ORDERABLES - DEVICE Fin al Result Performing Organization Address [facility] de Phone Number [facility] Department [place] [address] * (ABNORMAL) POCT heparin/ACT CPB (01/17/2025 1:10 PM CDT) Heparin POC <2.8 units/mL ACT, CPB 718(H) 112 - 174 sec [facility] Blood 01/17/2025 1:10 PM CDT 01/17/2025 1:10 PM CDT Brenna Chavez MD LAB POCT ORDERABLES - DEVICE Fin al Result Performing Organization Address [facility] de Phone Number [facility] [place] [address] * (ABNORMAL) POC Blood Gas and Chemistries, Arterial - (01/17/2025 1:01 PM CDT) pH, Art POC 7.38 7.35 - 7.45 pCO2, Art POC 40 35 - 45 mmHg [facility] pO2, Art POC 414(H) 83 - 108 mmHg [facility] Na, POC 132(L) 135 - 145 mmol/L [facility] K POC 4.6 3.3 - 4.9 mmol/L [facility] Comment: Interpretive Data Not all point of care methods assess for hemolysis. Confirm with instrument and retest K+ if not consistent with clinical signs and symptoms. Current Interpretive Data was last revised on 2023. Cl, POC 102 97 - 110 mmol/L [facility] Ionized Ca, POC 4.29(L) 4.50 - 5.10 mg/dL [facility] Glucose, POC 141 70 - 199 mg/dL [facility] Lactate POC 2.0 0.7 - 2.0 mmol/L [facility] SO2 (edd) arterial 99(H) 90 - 95 % [facility] Base excess, POC -1.3 mmol/L [facility] HCO3, Art POC 24 20 - 30 mmol/L [facility] Hct, POC 27.0(L) 36.3 - 45.3 % [facility] Total Hb, POC 9.1(L) 11.9 - 15.5 g/dL [facility] Blood 01/17/2025 1:01 PM CDT 01/17/2025 1:01 PM CDT Sukhdev Fritz MD LAB POCT ORDERABLE S - DEVICE Final Result [facility] One [facility] Department [place] [address] * OH AN PROCEDURE PLACEHOLDER (01/17/2025 12:53 PM CDT) Anatomical Region Laterality Modality Other Narrative 01/17/2025 12:53 PM CDT Tommy Obando MD 01/18/2025 11:09 AM JANELLE Date/time: Staff: Supervising anesthesiologist: Tommy Obando MD Performed by: 1st Fellow: Thao Sheikh MD Preprocedure checklist: patient identified, procedure contraindications assessed, procedure consent, risks, benefits and alternatives discussed, monitors and equipment checked, timeout performed and JANELLE probe inserted into esophagus using lubricating jelly General procedure Information: Reason for procedure/indications: assessment of ascending aorta, assessment of surgical repair and hemodynamic monitoring Performed: personally and with fellows Procedure performed at surgeon's request: yes Results discussed with surgeon: yes Images submitted to archive: yes Patient location: OR Intubated: yes Bite blocked placed: yes Probe Insertion: easy Complications: no Probe type: adult Modalities: 2D imaging, 3D imaging, continuous wave Doppler, pulsed wave Doppler and color Doppler JANELLE machine number: 6 Billing information: Physician requesting echo: Brenna Chavez MD CPT code: JANELLE placement and diagnostic exam, non-congenital (21545) ICD code(s) for medical necessity: R93.1 - Abnormal findings on diagnostic imaging of heart and coronary circulation, 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 Echocardiographic and doppler measurements: Ventricles: Left ventricle: Cavity size: normal Hypertrophy: No Thrombus: No Global function: normal LVEF%: 50-60 Right ventricle: Cavity size: normal Hypertrophy: no Thrombus: No Global function: normal RVEF%: normal Interventricular septum: normal Regional function: 1- Basal anteroseptal: normal 2- Basal anterior: normal 3- Basal anterolateral: normal 4- Basal inferolateral: normal 5- Basal inferior: normal 6- Basal inferoseptal: normal 7- Mid anteroseptal: normal 8- Mid anterior: normal 9- Mid anterolateral: normal 10- Mid inferolateral: normal 11- Mid inferior: normal 12- Mid inferoseptal: normal 13- Apical anterior: normal 14- Apical lateral: normal 15- Apical inferior: normal 16- Apical septal: normal 17- Acworth: normal Valves: Aortic Valve: Annulus: normal Leaflet morphology: normal Leaflet motion: normal Stenosis: none Regurgitation: none Mitral valve: Annulus: normal Leaflet morphology anterior: normal Leaflet morphology posterior: vegetation and normal Leaflet motion anterior: normal Leaflet motion posterior: normal Stenosis: none Regurgitation: none Tricuspid valve: Annulus: normal Leaflet morphology: normal Leaflet motion: normal Stenosis: none Regurgitation: none Pulmonic valve: Annulus: normal Regurgitation: absent Aorta: Ascending aorta: Size: normal Dissection: no Plaque thickness(mm): 0-3 Plaque mobile: no Aortic arch: Size: normal Dissection: no Plaque thickness(mm): 0-3 Plaque mobile: no Descending aorta: Size: normal Dissection: no Plaque thickness(mm): 0-3 Plaque mobile: no Atria: Right atrium: Size: normal Spontaneous echo contrast: No Thrombus: no Mass: No Left atrium: Size: normal (normal) Spontaneous echo contrast: No Thrombus: no Mass: No Left atrial appendage: normal Interatrial septum: normal Diastolic function and other findings: Pericardium: normal Left pleural effusion: moderate effusion Right pleural effusion: normal Pulmonary venous flow: blunted systolic flow Pre-procedure JANELLE exam summary: Exam performed under general anesthesia with no inotrope Notable for LVEF 50-60%, normal RV function. Valves notable for no AI, no , no MR, no MS, no TR, no PI. P2 scallop of mitral valve with mobile vegetation on valve not causing prolapse or regurgitation. No PFO appreciated. No right-sided pleural effusion appreciated. Moderately-sized left-sided pleural effusion appreciated. No pericardial effusion appreciated. Imaged aorta with small, immobile plaque and without dissection. Postprocedure (follow-up) JANELLE exam: LV: unchanged RV: unchanged Interventricular septum: unchanged Aortic valve: unchanged Mitral valve gradient peak: 2 mmHg Mitral valve gradient mean: 1 mmHg Pulmonic valve: unchanged Tricuspid valve: unchanged Atria: unchanged Aorta: unchanged Pericardium: unchanged Left pleural: unchanged Right pleural: unchanged Postprocedure (follow-up) JANELLE exam comments: Exam performed under general anesthesia on 5mcg/kg/min [employer] for inotropy. 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 Notable for LVEF 50-60%, normal RV function, unchanged from prior. Valves notable for no AI, no , no MR, no MS (peak gradient 2), no TR, no PI, unchanged from prior. No PFO appreciated. Moderate-sized right-sided pleural effusion and no left-sided pleural effusion appreciated, unchanged from prior. No pericardial effusion appreciated. Imaged aorta without dissection. Attestation Statement: By signing this report the attending anesthesiologist certifies that he or she has personally reviewed and interpreted the echocardiogram and has reviewed and or edited and agrees with the written comments contained within the report. us Tommy Obando MD ANESTHESIA ORDERABLES Final Res ult * Transfuse RBC (01/17/2025 12:52 PM CDT) Blood Result [facility] us Tommy Obando MD BLOOD TRANSFUSION ORDERABLES Fi nal Result Performing Organization Address [facility] de Phone Number [facility] [employer] [place] [address] * (ABNORMAL) POCT heparin/ACT CPB (01/17/2025 12:40 PM CDT) Heparin POC 4.1 units/mL ACT, CPB 918(H) 112 - 174 sec [facility] Blood 01/17/2025 12:4 0 PM CDT 01/17/2025 12:40 PM CDT Brenna Chavez MD LAB POCT ORDERABLES - DEVICE Fin al Result Performing Organization Address [facility] Co de Phone Number [facility] [place] [employer] [place] [address] * Transfuse RBC (01/17/2025 12:33 PM CDT) Blood Tommy Obando MD BLOOD TRANSFUSION ORDERABLES Fi nal Result Performing Organization Address [facility] de Phone Number [facility] [place] [employer] [place] [address] * (ABNORMAL) POC Blood Gas and Chemistries, Arterial - (01/17/2025 12:31 PM CDT) pH, Art POC 7.40 7.35 - 7.45 pCO2, Art POC 39 35 - 45 mmHg [facility] pO2, Art POC 430(H) 83 - 108 mmHg [facility] Na, POC 131(L) 135 - 145 mmol/L [facility] K POC 6.2(C) 3.3 - 4.9 mmol/L [facility] Comment: Interpretive Data Not all point of care methods assess for hemolysis. Confirm with instrument and retest K+ if not consistent with clinical signs and symptoms. Current Interpretive Data was last revised on 2023. Cl, POC 103 97 - 110 mmol/L [facility] Ionized Ca, POC 4.23(L) 4.50 - 5.10 mg/dL [facility] Glucose, POC 128 70 - 199 mg/dL [facility] Lactate POC 1.4 0.7 - 2.0 mmol/L [facility] SO2 (edd) arterial 100(H) 90 - 95 % [facility] Base excess, POC -0.5 mmol/L [facility] HCO3, Art POC 24 20 - 30 mmol/L [facility] Hct, POC 20.0(L) 36.3 - 45.3 % [facility] Total Hb, POC 6.6(L) 11.9 - 15.5 g/dL [facility] Blood 01/17/2025 12:3 1 PM CDT 01/17/2025 12:31 PM CDT Sukhdev Fritz MD LAB POCT ORDERABLE S - DEVICE Final Result Performing Organization Address City/[facility]/ZIP Co de Phone Number [facility] Department [place] [employer] [place] [address] * (ABNORMAL) POCT heparin/ACT CPB (01/17/2025 12:01 PM CDT) Heparin POC >4.7 units/mL ACT, CPB 783(H) 112 - 174 sec [facility] Blood 01/17/2025 12:0 1 PM CDT 01/17/2025 12:01 PM CDT Brenna Chavez MD LAB POCT ORDERABLES - DEVICE Fin al Result [facility] [place] [employer] [place] [address] * (ABNORMAL) POC Blood Gas and Chemistries, Arterial - (01/17/2025 11:53 AM CDT) pH, Art POC 7.42 7.35 - 7.45 pCO2, Art POC 43 35 - 45 mmHg [facility] pO2, Art POC 281(H) 83 - 108 mmHg [facility] Na, POC 130(L) 135 - 145 mmol/L [facility] K POC 4.0 3.3 - 4.9 mmol/L [facility] Comment: Interpretive Data Not all point of care methods assess for hemolysis. Confirm with instrument and retest K+ if not consistent with clinical signs and symptoms. Current Interpretive Data was last revised on 2023. Cl, POC 101 97 - 110 mmol/L [facility] Ionized Ca, POC 4.75 4.50 - 5.10 mg/dL [facility] Glucose, POC 156 70 - 199 mg/dL [facility] Lactate POC 1.5 0.7 - 2.0 mmol/L [facility] SO2 (edd) arterial 100(H) 90 - 95 % [facility] Base excess, POC 3.1 mmol/L [facility] HCO3, Art POC 28 20 - 30 mmol/L [facility] Hct, POC 27.0(L) 36.3 - 45.3 % [facility] Total Hb, POC 9.0(L) 11.9 - 15.5 g/dL [facility] Blood 01/17/2025 11:5 3 AM CDT 01/17/2025 11:53 AM CDT Sukhdev Fritz MD LAB POCT ORDERABLE S - DEVICE Final Result [facility] One [facility] Department [place] [address] * Arterial Line (01/17/2025 11:14 AM CDT) Narrative Edward Fair MD - 01/17/2025 11:14 AM CDT Edward Fair MD 01/17/2025 11:14 AM Arterial Line Patient location: PACU Indication: continuous blood pressure monitoring and blood sampling needed Ultrasound assisted: yes Staff: Placed by: Resident: Edward Fair MD Procedure prep: Prep solution: chlorhexadine/alcohol Prep: provider hat/mask, sterile gloves, sterile drape and sterile probe cover Arterial line: Catheter size: 20 gauge Catheter length: 1 and 1/4 inch Catheter type: wire-guided catheter Seldinger technique: yes Laterality: left Site: radial artery Line secured: Tegaderm Results: good waveform and good blood return Number of attempts: 1 Assessment: Events: patient tolerated procedure well with no complications Tommy Obando MD ANESTHESIA ORDERABLES Final Res ult * POCT heparin dose response, CPB (01/17/2025 11:12 AM CDT) Baseline ACT POC 146 112 - 174 sec Heparin dose response slope POC 104 60 - 195 [facility] Projected Heparin Concentration POC 3.2 units/mL [facility] Blood 01/17/2025 11:1 2 AM CDT 01/17/2025 11:12 AM CDT Brenna Chavez MD LAB POCT ORDERABLES - DEVICE Fin al Result [facility] One [facility] Department [place] [address] * Central Venous Line (01/17/2025 11:11 AM CDT) Narrative Edward Fair MD - 01/17/2025 11:11 AM CDT Edward Fair MD 01/17/2025 11:15 AM Central Venous Line Patient location: OR Indication: central venous access Staff: Supervising provider: Tommy Obando MD Placed by: Resident: Edward Fair MD Procedure prep: Patient position: Trendelenburg. PPE: provider hand hygiene, provider hat/mask, sterile gloves, sterile gown, full body drape, large sterile drape, sterile gel and sterile probe covers. Prep solution: chlorhexadine/alcohol was applied to area. Ultrasound Evaluation: Ultrasound was prepped into field. Ultrasound image(s) saved to archive. Prior to the procedure, the cannulated vein was evaluated by ultrasound and deemed suitably patent for access.This vessel was accessed using real-time ultrasound guidance and an image was placed in the patient's medical record Central line: Laterality: right Site: internal jugular An individually distinct skin insertion site is being utilized for placement of the catheter. Catheter type: multi-lumen access catheter (MAC) Catheter size: 9 Fr. Catheter length: 10 cm Technique: anatomy identified with ultrasound, Seldinger technique, wire threaded easily and wire removed intact Venous verification: manometry and ultrasound confirmation Post insertion: all ports aspirated, all ports flushed easily, line sutured in place and occlusive dressing applied Chlorhexidine patch applied: yes Number of attempts: 3 Other sites attempted: LIJ PA catheter placement: PA catheter type: oximetric PA catheter size: 8 Fr PA catheter laterality: right PA catheter site: internal jugular Placement guided by: pressure tracing changes and verified by JANELLE PA catheter depth 50 cmNo Assessment: Events: patient tolerated procedure well with no complications Additional comments: First 2 attempts at LIJ due to presence of right sided CALENDER WIND UP TENDER shunt in area of R IJ. Able to access LIJ but unable to pass wire past 15cm with 2 different access points. Discussed with surgery team, decided best plan to proceed carefully for RIJ access and reduce to a single catheter in RIJ. MAC Cordis placed in RIJ with wide avoidance of CALENDER WIND UP TENDER shunt catheter. Wire visualized in vessel and at least 1cm from CALENDER WIND UP TENDER shunt catheter during entire course. us Tommy Obando MD ANESTHESIA ORDERABLES Edited Re sult - Final * Airway (01/17/2025 11:10 AM CDT) Narrative Edward Fair MD - 01/17/2025 11:10 AM CDT Edward Fair MD 01/17/2025 11:11 AM Airway Patient location: OR Indications for airway management: anesthesia Difficult airway: no Staff: Supervising provider: Tommy Obando MD Placed by: Resident: Edward Fair MD Emergent airway documentation: Risks and benefits discussed: yes Consent obtained: yes Consent given by: patient Airway prep: Preoxygenated: yes Patient position: sniffing Mask difficulty assessment: 1 - vent by mask Spontaneous ventilation during airway: absent Sedation level during airway: GA Final airway details: Final airway type: endotracheal airway Tube type: ETT ETT size: 7.5 mm Cuffed: yes Technique used for successful ETT placement: video laryngoscopy Devices/Methods used in placement: stylet Insertion site: oral Blade type: Jace Video blade type: Dominique Blade size: 3 Cormack-Lehane (video): grade I - full view of glottis Initial cuff pressure: 28 cm H2O Cuff inflated with: air ETT to teeth: 22 cm Placement verified by: auscultation and CO2 detection Airway secured with: silk tape Number of attempts: 1no us Tommy Obando MD ANESTHESIA ORDERABLES Final Res ult * (ABNORMAL) POC Blood Gas and Chemistries, Arterial - (01/17/2025 11:04 AM CDT) pH, Art POC 7.43 7.35 - 7.45 pCO2, Art POC 42 35 - 45 mmHg [facility] pO2, Art POC 250(H) 83 - 108 mmHg [facility] Na, POC 131(L) 135 - 145 mmol/L [facility] K POC 4.0 3.3 - 4.9 mmol/L [facility] Comment: Interpretive Data Not all point of care methods assess for hemolysis. Confirm with instrument and retest K+ if not consistent with clinical signs and symptoms. Current Interpretive Data was last revised on 2023. Cl, POC 100 97 - 110 mmol/L [facility] Ionized Ca, POC 4.70 4.50 - 5.10 mg/dL [facility] Glucose, POC 180 70 - 199 mg/dL [facility] Lactate POC 1.2 0.7 - 2.0 mmol/L [facility] SO2 (edd) arterial 100(H) 90 - 95 % [facility] Base excess, POC 3.2 mmol/L [facility] HCO3, Art POC 28 20 - 30 mmol/L [facility] Hct, POC 28.0(L) 36.3 - 45.3 % [facility] Total Hb, POC 9.4(L) 11.9 - 15.5 g/dL [facility] Blood 01/17/2025 11:0 4 AM CDT 01/17/2025 11:04 AM CDT us Sukhdev Fritz MD LAB POCT ORDERABLE S - DEVICE Final Result [facility] Department [place] [address] * Prepare plasma: 4 Units (01/17/2025 9:30 AM CDT) Product code [id number] Unit Number [id number] 0-I [facility] Product Blood Type ONEG [facility] Dispense Status RETURNED [facility] Product code [id number] [facility] Unit Number [id number] 1-G [facility] Product Blood Type OPOS [facility] Dispense Status RETURNED [facility] Product code [id number] [facility] Unit Number [id number] 1-V [facility] Product Blood Type OPOS [facility] Dispense Status RETURNED [facility] Product code [id number] [facility] Unit Number [id number] 7-C [facility] Product Blood Type OPOS [facility] Dispense Status RETURNED [facility] Blood Venous blood specimen / Unknown 01/17/2025 9:30 AM CDT 01/17/2025 9:30 AM CDT Narrative [facility] - 01/17/2025 3:43 PM CDT Date required: FFP # of Units:-4-Units Reasons:-Immediate need for surgical intervention us Tommy Obando MD BLOOD BANK PRODUCT ORDERABLES F inal Result [facility] Department [place] [address] * JANELLE Add-On For OR (01/17/2025 9:06 AM CDT) BSA 1.8 m2 [facility] PROSOLV_CARDIORE PORT_CONS SCIMAGE Narrative [facility] PROSOLV_CARDIOREPORT_CONS SCIMAGE - 01/17/2025 9:06 AM CDT Procedure Auto Finalized by Rule: BW CV JANELLE DURING CASE OR Please see the Anesthesiologist's Procedure Note for the results. us Edward Fair MD CV ECHO PROCEDURES Fin al Result Performing Organization Address City/[facility] Co de Phone Number [facility] PROSOLV_CARDIOREPORT_CONS SCIMAGE * Prepare RBC: 4 Units (01/17/2025 6:25 AM CDT) [facility] Product code [id number] [facility] Unit Number [id number] [facility] Product Blood Type ONEG [facility] Dispense Status PRESUMED TRANSFUSED [facility] Product code [id number] Unit Number [id number] [facility] Product Blood Type ONEG [facility] Dispense Status PRESUMED TRANSFUSED [facility] Product code [id number] [facility] Unit Number [id number] [facility] Product Blood Type ONEG [facility] Dispense Status PRESUMED TRANSFUSED [facility] Product code [id number] [facility] Unit Number [id number] [facility] Product Blood Type ONEG [facility] Dispense Status PRESUMED TRANSFUSED [facility] Blood 01/17/2025 6:25 AM CDT 01/17/2025 6:24 AM CDT Narrative [facility] - 01/18/2025 12:56 AM CDT Specify Procedure:->CABG MVR Are special requirements needed? (All products are leukoreduced and CMV- safe)- >No Date required:-[id number] LRRBC # of [id number] Reasons:-Hold for procedure (specify procedure)} Doris Pitt NP BLOOD BANK PRODUCT ORDER RILEY Final Result Performing Organization Address [facility] Co de Phone Number [facility] One [facility] Department [place] [address] * (ABNORMAL) eGFR (01/16/2025 8:33 PM CDT) [facility] eGFR 56(L) >=60 mL/min/1. 73 m2 Comment: Interpretive Data Reference Interval Normal >/= 90 mL/min/1.73m2 Mildly decreased* 60 - 89 mL/min/1.73m2 Mildly to moderately decreased 45 - 59 mL/min/1.73m2 Moderately to severely decreased 30 - 44 mL/min/1.73m2 Severely decreased 15 - 29 mL/min/1.73m2 Kidney Failure < 15 mL/min/1.73m2 *Relative to young adult level Estimated glomerular filtration rate is determined by the 2020 CKD-EPI equation recommended by the National Kidney Foundation (A Unifying Approach to GFR Estimation: Recommendations of the NKF-ASK Task Force on Reassessing the Inclusion of Race in Diagnosing Kidney Disease, JASN 2020). The CKD-EPI equation should not be used for patients with unstable renal function and has not been validated in children and those over 70. Current interpretive data was last reviewed 2021. Blood 01/16/2025 8:33 PM CDT 01/16/2025 8:44 PM CDT us Phi Armstrong MD LAB BLOOD ORDERABLES Fi nal Result Performing Organization Address [facility] Co de Phone Number [facility] Department [place] [address] * (ABNORMAL) aPTT (01/16/2025 8:33 PM CDT) aPTT 43(H) 26 - 38 sec Comment: Interpretive Data Heparin therapeutic range: 66.0 - 100.0 seconds. Range based on correlation with therapeutic heparin activity range of 0.3 - 0.7 Units/mL. Current interpretive data was last revised on 2023. Blood 01/16/2025 8:33 PM CDT 01/16/2025 8:51 PM CDT us Sukhdev Fritz MD LAB BLOOD ORDERABL ES Final Result Performing Organization Address [facility]/ZIP Co de Phone Number [facility] Department [place] [employer] [place] [address] * Protime-INR (01/16/2025 8:33 PM CDT) PT 13.1 10.2 - 13.5 sec INR 1.16 0.90 - 1.20 [facility] Comment: Interpretive data Oral anticoagulant therapeutic ranges: Venous thromboembolism prophylaxis or treatment: 2.0-3.0 CARDIOLOGY Standard range: 2.0-3.0 High-intensity range: 2.5-3.5 Refer to indication-specific guidelines for appropriate target ranges for prosthetic heart valve replacement. Current interpretive data was last revised on 2019. Blood 01/16/2025 8:33 PM CDT 01/16/2025 8:51 PM CDT Sukhdev Fritz MD LAB BLOOD ORDERABL ES Final Result [facility] [place] [address] * (ABNORMAL) CBC without differential (01/16/2025 8:33 PM CDT) WBC 7.05 3.80 - 9.90 K/cumm Hgb 9.3(L) 11.9 - 15.5 g/dL [facility] Hct 26.4(L) 35.6 - 45.5 % [facility] Plt 143(L) 150 - 400 K/cumm [facility] MPV 9.5 9.1 - 12.3 fL [facility] RBC 2.82(L) 3.90 - 5.20 M/cumm [facility] MCV 93.6 81.3 - 96.4 fL [facility] MCH 33.0 27.1 - 33.3 pg [facility] MCHC 35.2 32.3 - 35.7 g/dL [facility] RDW CV 13.3 11.1 - 14.9 % [facility] RDW SD 45.0 35.7 - 48.1 fL [facility] NRBC abs 0.00 0.00 - 0.01 K/cumm [facility] Blood 01/16/2025 8:33 PM CDT 01/16/2025 8:44 PM CDT Sukhdev Fritz MD LAB BLOOD ORDERABL ES Final Result Performing Organization Address [facility] [place] [address] * Type and screen (01/16/2025 8:33 PM CDT) Daly, indirect Negative ABO Rh O Negative [facility] Blood 01/16/2025 8:33 PM CDT 01/16/2025 8:59 PM CDT Narrative [facility] - 01/16/2025 9:58 PM CDT Has the patient had Daratumumab or Isatuximab in the past 6 months?->Unknown Doris Pitt NP LAB BLOOD BANK TEST ORDE RABLES Final Result Performing Organization Address [facility] Co de Phone Number [facility] [employer] [place] [address] * Magnesium (01/16/2025 8:33 PM CDT) Magnesium 1.9 1.4 - 2.5 mg/dL Blood 01/16/2025 8:33 PM CDT 01/16/2025 8:44 PM CDT Sukhdev Fritz MD LAB BLOOD ORDERABL ES Final Result Performing Organization Address City/[facility] [place] [address] * Creatine kinase (CK), total (01/16/2025 8:33 PM CDT) CK 41 30 - 200 Units/L Blood 01/16/2025 8:33 PM CDT 01/16/2025 8:44 PM CDT Sukhdev Fritz MD LAB BLOOD ORDERABL ES Final Result [facility] [place] [address] * (ABNORMAL) Comprehensive metabolic panel (01/16/2025 8:33 PM CDT) Sodium 127(L) 135 - 145 mmol/L Potassium, pl 3.8 3.3 - 4.9 mmol/L [facility] Chloride 92(L) 97 - 110 mmol/L [facility] CO2 25 22 - 32 mmol/L [facility] Anion gap 10 2 - 15 mmol/L [facility] BUN 8 6 - 25 mg/dL [facility] Creatinine 1.02 0.60 - 1.10 mg/dL [facility] Glucose 105 70 - 199 mg/dL [facility] Comment: Interpretive Data Fasting glucose >/= 126 mg/dl is diagnostic for diabetes. Fasting is defined as no caloric intake for at least 8 hours. Fasting glucose between 100 mg/dl to 125 mg/dl is diagnostic of prediabetes. In a patient with classic symptoms of hyperglycemia or hyperglycemic crisis, a random glucose >/= 200 mg/dl is diagnostic for diabetes. In the absence of unequivocal hyperglycemia, results should be confirmed by repeat testing. The classification and Diagnosis of Diabetes Diabetes Care 202; 46: S19-S40. Current interpretive data was last revised 2022. Calcium 8.5 8.5 - 10.3 mg/dL [facility] Bilirubin, total 0.3 0.1 - 1.2 mg/dL [facility] Protein, pl 6.4(L) 6.5 - 8.5 g/dL [facility] Albumin 3.3(L) 3.5 - 5.0 g/dL [facility] Alk phos 116 40 - 130 Units/L [facility] ALT 17 7 - 45 Units/L [facility] AST 23 10 - 45 Units/L [facility] Blood 01/16/2025 8:33 PM CDT 01/16/2025 8:44 PM CDT us Phi Armstrong MD LAB BLOOD ORDERABLES Fi nal Result Performing Organization Address [facility] de Phone Number [facility] Department [place] [address] * eGFR (01/15/2025 9:18 PM CDT) [facility] eGFR 70 >=60 mL/min/1. 73 m2 Comment: Interpretive Data Reference Interval Normal >/= 90 mL/min/1.73m2 Mildly decreased* 60 - 89 mL/min/1.73m2 Mildly to moderately decreased 45 - 59 mL/min/1.73m2 Moderately to severely decreased 30 - 44 mL/min/1.73m2 Severely decreased 15 - 29 mL/min/1.73m2 Kidney Failure < 15 mL/min/1.73m2 *Relative to young adult level Estimated glomerular filtration rate is determined by the 2020 CKD-EPI equation recommended by the National Kidney Foundation (A Unifying Approach to GFR Estimation: Recommendations of the NKF-ASK Task Force on Reassessing the Inclusion of Race in Diagnosing Kidney Disease, JASN 2020). The CKD-EPI equation should not be used for patients with unstable renal function and has not been validated in children and those over 70. Current interpretive data was last reviewed 2021. Blood 01/15/2025 9:18 PM CDT 01/15/2025 9:49 PM CDT us Phi Armstrong MD LAB BLOOD ORDERABLES Fi nal Result Performing Organization Address [facility] Co de Phone Number [facility] Department [place] [address] * (ABNORMAL) CBC without differential (01/15/2025 9:18 PM CDT) [facility] WBC 7.66 3.80 - 9.90 K/cumm Hgb 9.8(L) 11.9 - 15.5 g/dL [facility] Hct 27.7(L) 35.6 - 45.5 % [facility] Plt 164 150 - 400 K/cumm [facility] MPV 9.5 9.1 - 12.3 fL [facility] RBC 2.95(L) 3.90 - 5.20 M/cumm [facility] MCV 93.9 81.3 - 96.4 fL [facility] MCH 33.2 27.1 - 33.3 pg [facility] MCHC 35.4 32.3 - 35.7 g/dL [facility] RDW CV 13.3 11.1 - 14.9 % [facility] RDW SD 45.6 35.7 - 48.1 fL [facility] NRBC abs 0.00 0.00 - 0.01 K/cumm [facility] Blood 01/15/2025 9:18 PM CDT 01/15/2025 9:37 PM CDT us Sukhdev Fritz MD LAB BLOOD ORDERABL ES Final Result Performing Organization Address [facility]/ZIP Co de Phone Number [facility] Department [place] [address] * Magnesium (01/15/2025 9:18 PM CDT) Pathologist [facility] [place] Magnesium 1.6 1.4 - 2.5 mg/dL Blood 01/15/2025 9:18 PM CDT 01/15/2025 9:37 PM CDT Sukhdev Fritz MD LAB BLOOD ORDERABL ES Final Result Performing Organization Address City/[facility]/ZIP Co de Phone Number [facility] Department [place] [address] * (ABNORMAL) Comprehensive metabolic panel (01/15/2025 9:18 PM CDT) Sodium 132(L) 135 - 145 mmol/L Potassium, pl 4.4 3.3 - 4.9 mmol/L [facility] Chloride 98 97 - 110 mmol/L [facility] CO2 26 22 - 32 mmol/L [facility] Anion gap 8 2 - 15 mmol/L [facility] BUN 6 6 - 25 mg/dL [facility] Creatinine 0.85 0.60 - 1.10 mg/dL [facility] Glucose 90 70 - 199 mg/dL [facility] Comment: Interpretive Data Fasting glucose >/= 126 mg/dl is diagnostic for diabetes. Fasting is defined as no caloric intake for at least 8 hours. Fasting glucose between 100 mg/dl to 125 mg/dl is diagnostic of prediabetes. In a patient with classic symptoms of hyperglycemia or hyperglycemic crisis, a random glucose >/= 200 mg/dl is diagnostic for diabetes. In the absence of unequivocal hyperglycemia, results should be confirmed by repeat testing. The classification and Diagnosis of Diabetes Diabetes Care 2021; 46: S19-S40. Current interpretive data was last revised 2022. Calcium 8.6 8.5 - 10.3 mg/dL [facility] Bilirubin, total 0.5 0.1 - 1.2 mg/dL [facility] Protein, pl 6.7 6.5 - 8.5 g/dL [facility] Albumin 3.3(L) 3.5 - 5.0 g/dL [facility] Alk phos 115 40 - 130 Units/L [facility] ALT 20 7 - 45 Units/L [facility] AST 24 10 - 45 Units/L [facility] Blood 01/15/2025 9:18 PM CDT 01/15/2025 9:37 PM CDT us Phi Armstrong MD LAB BLOOD ORDERABLES nal Result [facility] Department [place] [address] * eGFR (01/14/2025 11:33 PM CDT) Pathologist [facility] [place] eGFR 70 >=60 mL/min/1. 73 m2 Comment: Interpretive Data Reference Interval Normal >/= 90 mL/min/1.73m2 Mildly decreased* 60 - 89 mL/min/1.73m2 Mildly to moderately decreased 45 - 59 mL/min/1.73m2 Moderately to severely decreased 30 - 44 mL/min/1.73m2 Severely decreased 15 - 29 mL/min/1.73m2 Kidney Failure < 15 mL/min/1.73m2 *Relative to young adult level Estimated glomerular filtration rate is determined by the 2020 CKD-EPI equation recommended by the National Kidney Foundation (A Unifying Approach to GFR Estimation: Recommendations of the NKF-ASK Task Force on Reassessing the Inclusion of Race in Diagnosing Kidney Disease, JASN 2020). The CKD-EPI equation should not be used for patients with unstable renal function and has not been validated in children and those over 70. Current interpretive data was last reviewed 2021. Blood 01/14/2025 11:3 3 PM CDT 01/15/2025 12:33 AM CDT us Phi Armstrong MD LAB BLOOD ORDERABLES Fi nal Result [facility] [place] [address] * (ABNORMAL) CBC without differential (01/14/2025 11:33 PM CDT) WBC 8.27 3.80 - 9.90 K/cumm Hgb 8.3(L) 11.9 - 15.5 g/dL [facility] Hct 23.8(L) 35.6 - 45.5 % [facility] Plt 151 150 - 400 K/cumm [facility] MPV 9.9 9.1 - 12.3 fL [facility] RBC 2.54(L) 3.90 - 5.20 M/cumm [facility] MCV 93.7 81.3 - 96.4 fL [facility] MCH 32.7 27.1 - 33.3 pg [facility] MCHC 34.9 32.3 - 35.7 g/dL [facility] RDW CV 13.3 11.1 - 14.9 % [facility] RDW SD 45.4 35.7 - 48.1 fL [facility] NRBC abs 0.00 0.00 - 0.01 K/cumm [facility] Blood 01/14/2025 11:3 3 PM CDT 01/15/2025 12:33 AM CDT us Sukhdev Fritz MD LAB BLOOD ORDERABL ES Final Result Performing Organization Address City/[facility]/ZIP Co de Phone Number [facility] [place] [address] * Magnesium (01/14/2025 11:33 PM CDT) Pathologist [facility] [place] Magnesium 2.0 1.4 - 2.5 mg/dL Blood 01/14/2025 11:3 3 PM CDT 01/15/2025 12:33 AM CDT us Sukhdev Fritz MD LAB BLOOD ORDERABL ES Final Result Performing Organization Address [facility] de Phone Number [facility] [place] [address] * (ABNORMAL) Comprehensive metabolic panel (01/14/2025 11:33 PM CDT) [facility] Sodium 130(L) 135 - 145 mmol/L Potassium, pl 2.8(L) 3.3 - 4.9 mmol/L [facility] Chloride 94(L) 97 - 110 mmol/L [facility] CO2 30 22 - 32 mmol/L [facility] Anion gap 6 2 - 15 mmol/L [facility] BUN 5(L) 6 - 25 mg/dL [facility] Creatinine 0.85 0.60 - 1.10 mg/dL [facility] Glucose 128 70 - 199 mg/dL [facility] Comment: Interpretive Data Fasting glucose >/= 126 mg/dl is diagnostic for diabetes. Fasting is defined as no caloric intake for at least 8 hours. Fasting glucose between 100 mg/dl to 125 mg/dl is diagnostic of prediabetes. In a patient with classic symptoms of hyperglycemia or hyperglycemic crisis, a random glucose >/= 200 mg/dl is diagnostic for diabetes. In the absence of unequivocal hyperglycemia, results should be confirmed by repeat testing. The classification and Diagnosis of Diabetes Diabetes Care 2022; 46: S19-S40. Current interpretive data was last revised 2022. Calcium 7.8(L) 8.5 - 10.3 mg/dL [facility] Bilirubin, total 0.3 0.1 - 1.2 mg/dL [facility] Protein, pl 5.6(L) 6.5 - 8.5 g/dL [facility] Albumin 2.9(L) 3.5 - 5.0 g/dL [facility] Alk phos 94 40 - 130 Units/L [facility] ALT 17 7 - 45 Units/L [facility] AST 18 10 - 45 Units/L [facility] Blood 01/14/2025 11:3 3 PM CDT 01/15/2025 12:33 AM CDT us Phi Armstrong MD LAB BLOOD ORDERABLES Fi nal Result [facility] Department [place] [address] * eGFR (01/13/2025 8:29 PM CDT) eGFR 71 >=60 mL/min/1. 73 m2 Comment: Interpretive Data Reference Interval Normal >/= 90 mL/min/1.73m2 Mildly decreased* 60 - 89 mL/min/1.73m2 Mildly to moderately decreased 45 - 59 mL/min/1.73m2 Moderately to severely decreased 30 - 44 mL/min/1.73m2 Severely decreased 15 - 29 mL/min/1.73m2 Kidney Failure < 15 mL/min/1.73m2 *Relative to young adult level Estimated glomerular filtration rate is determined by the 2020 CKD-EPI equation recommended by the National Kidney Foundation (A Unifying Approach to GFR Estimation: Recommendations of the NKF-ASK Task Force on Reassessing the Inclusion of Race in Diagnosing Kidney Disease, JASN 2020). The CKD-EPI equation should not be used for patients with unstable renal function and has not been validated in children and those over 70. Current interpretive data was last reviewed 2021. Blood 01/13/2025 8:29 PM CDT 01/13/2025 9:00 PM CDT us Phi Armstrong MD LAB BLOOD ORDERABLES Fi nal Result [facility] Department [place] [address] * (ABNORMAL) Differential, auto (01/13/2025 8:29 PM CDT) Neutrophil abs 7.10(H) 1.50 - 6.50 K/cumm Imm gran abs 0.03 0.00 - 0.10 K/cumm [facility] Lymphocyte abs 1.05 0.80 - 3.30 K/cumm [facility] Monocyte abs 0.98(H) 0.20 - 0.80 K/cumm [facility] Eosinophil abs 0.11 0.00 - 0.50 K/cumm [facility] Basophil abs 0.04 0.00 - 0.10 K/cumm [facility] Neutrophil pct 76.3 % [facility] Comment: Interpretive Data Percent cell count reference ranges are not reported, since discordance with absolute values may lead to misinterpretation of CBC data. Current Interpretive Data was last revised on 2017. Imm gran pct 0.3 % [facility] Comment: Interpretive Data Percent cell count reference ranges are not reported, since discordance with absolute values may lead to misinterpretation of CBC data. Current Interpretive Data was last revised on 2017. Lymphocyte pct 11.3 % [facility] Comment: Interpretive Data Percent cell count reference ranges are not reported, since discordance with absolute values may lead to misinterpretation of CBC data. Current Interpretive Data was last revised on 2017. Monocyte pct 10.5 % [facility] Comment: Interpretive Data Percent cell count reference ranges are not reported, since discordance with absolute values may lead to misinterpretation of CBC data. Current Interpretive Data was last revised on 2017. Eosinophil pct 1.2 % [facility] Comment: Interpretive Data Percent cell count reference ranges are not reported, since discordance with absolute values may lead to misinterpretation of CBC data. Current Interpretive Data was last revised on 2017. Basophil pct 0.4 % [facility] Comment: Interpretive Data Percent cell count reference ranges are not reported, since discordance with absolute values may lead to misinterpretation of CBC data. Current Interpretive Data was last revised on 2017. Blood 01/13/2025 8:29 PM CDT 01/13/2025 9:00 PM CDT us Phi Armstrong MD LAB BLOOD ORDERABLES Fi nal Result Performing Organization Address [facility] Co de Phone Number [facility] Department [place] [address] * (ABNORMAL) CBC with auto differential (01/13/2025 8:29 PM CDT) WBC 9.31 3.80 - 9.90 K/cumm Hgb 10.0(L) 11.9 - 15.5 g/dL [facility] Hct 27.9(L) 35.6 - 45.5 % [facility] Plt 195 150 - 400 K/cumm [facility] MPV 9.4 9.1 - 12.3 fL [facility] RBC 3.00(L) 3.90 - 5.20 M/cumm [facility] MCV 93.0 81.3 - 96.4 fL [facility] MCH 33.3 27.1 - 33.3 pg [facility] MCHC 35.8(H) 32.3 - 35.7 g/dL [facility] RDW CV 13.5 11.1 - 14.9 % [facility] RDW SD 45.4 35.7 - 48.1 fL [facility] NRBC abs 0.00 0.00 - 0.01 K/cumm [facility] Blood 01/13/2025 8:29 PM CDT 01/13/2025 9:00 PM CDT us Phi Armstrong MD LAB BLOOD ORDERABLES Fi nal Result Performing Organization Address [facility]/State/ZIP Co de Phone Number [facility] Department [place] [address] * Phosphorus (01/13/2025 8:29 PM CDT) [facility] Phosphorus, pl 2.3 2.3 - 4.5 mg/dL Blood 01/13/2025 8:29 PM CDT 01/13/2025 9:00 PM CDT Sukhdev Fritz MD LAB BLOOD ORDERABL ES Final Result Performing Organization Address [facility] Co de Phone Number [facility] [place] [address] * Magnesium (01/13/2025 8:29 PM CDT) [facility] Magnesium 1.8 1.4 - 2.5 mg/dL Blood 01/13/2025 8:29 PM CDT 01/13/2025 9:00 PM CDT Sukhdev Fritz MD LAB BLOOD ORDERABL ES Final Result Performing Organization Address [facility] de Phone Number [facility] [place] [address] * (ABNORMAL) Comprehensive metabolic panel (01/13/2025 8:29 PM CDT) [facility] Sodium 133(L) 135 - 145 mmol/L Potassium, pl 3.2(L) 3.3 - 4.9 mmol/L [facility] Chloride 95(L) 97 - 110 mmol/L [facility] CO2 28 22 - 32 mmol/L [facility] Anion gap 10 2 - 15 mmol/L [facility] BUN 6 6 - 25 mg/dL [facility] Creatinine 0.84 0.60 - 1.10 mg/dL [facility] Glucose 96 70 - 199 mg/dL [facility] Comment: Interpretive Data Fasting glucose >/= 126 mg/dl is diagnostic for diabetes. Fasting is defined as no caloric intake for at least 8 hours. Fasting glucose between 100 mg/dl to 125 mg/dl is diagnostic of prediabetes. In a patient with classic symptoms of hyperglycemia or hyperglycemic crisis, a random glucose >/= 200 mg/dl is diagnostic for diabetes. In the absence of unequivocal hyperglycemia, results should be confirmed by repeat testing. The classification and Diagnosis of Diabetes Diabetes Care 2021; 46: S19-S40. Current interpretive data was last revised 2022. Calcium 8.3(L) 8.5 - 10.3 mg/dL [facility] Bilirubin, total 0.3 0.1 - 1.2 mg/dL [facility] Protein, pl 6.2(L) 6.5 - 8.5 g/dL [facility] Albumin 3.3(L) 3.5 - 5.0 g/dL [facility] Alk phos 104 40 - 130 Units/L [facility] ALT 26 7 - 45 Units/L [facility] AST 24 10 - 45 Units/L [facility] Blood 01/13/2025 8:29 PM CDT 01/13/2025 8:54 PM CDT us Phi Armstrong MD LAB BLOOD ORDERABLES Fi nal Result [facility] [place] [address] * LEFT HEART CATHETERIZATION WITH CORONARY ANGIOGRAPHY AND WITH AND WITHOUT LEFT VENTRICULOGRAM (01/13/2025 12:47 PM CDT) Anatomical Region Laterality Modality X-Ray Angiograph y Impressions 01/13/2025 12:58 PM CDT High-grade proximal to mid LAD with a 80-90% lesion as well as major diagonal at the lesion site with an ostial 90% lesion Nonobstructive disease otherwise Mildly elevated LVEDP THERAPEUTIC RECOMMENDATIONS: Continue aspirin 81 mg daily indefinitely. Right femoral artery sheath was removed and site closed with Angioseal. Patient may sit up in 2 hours. Aggressive risk factor modification and medical therapy for secondary prevention of coronary artery disease. The case was reviewed and discussed with the referring physician and patient. The referring physician will determine the future therapy and follow-up. I was present during the entire procedure and personally dictated or confirmed the above report. Narrative 01/13/2025 12:58 PM CDT Images from the original result were not included. Cardiovascular Procedure Center [facility] [address], [address] [place] [id number] CORONARY ANGIOGRAM REPORT Patient: Venkatesh Zaldivar : 1945 MR number: [id number] Date of Service: 01/13/2025 [employer] Hearth Laborer: Peter Pedraza MD Fellow: Jose Manuel Reis MD Referring physician: Julee Griffith MD INDICATION: Pre-Op PATIENT CLINICAL PROFILE: Venkatesh Zaldivar is a 79 y.o. female with mitral valve endocarditis is presenting for a left heart catheterization as part of her pre surgical evaluation. PROCEDURE: The risks, benefits and alternatives of the procedures and moderate sedation were explained to the patient and informed consent was obtained. The patient was brought to the supervisor labor gang and placed on the table. Bilateral groins were prepped and draped in the usual sterile fashion. Ultrasound guidance was used to obtain access. I provided direct [id number] moderate conscious sedation which administered by independent trained nurse using fentanyl Versed for 40 minutes. The RIGHT femoral artery site was infiltrated with 1% lidocaine. The vessel was accessed using a micropuncture kit and the modified Seldinger technique with a Micro needle, a wire was threaded into the vessel, and a 6 Fr Sheath was advanced over the wire into the vessel. Femoral angiogram was performed. Left coronary artery angiogram was performed using a 6 Fr JL 4 catheter. Right coronary artery angiogram was performed using a 6 Fr JR4 catheter. Left ventricular hemodynamics were measured using JR4 catheter, no left ventriculogram was done. The SYNTAX score was low (<22). At the end of the procedure, the right femoral artery sheath was removed and site closed with Angioseal. Patient was transferred to the holding area in stable condition. RESULTS: Hemodynamics: Systemic aortic blood pressure was 141/66. Left ventricular blood pressure was 143/19. There was no gradient on pull back across the aortic valve Coronary Arteriography: Left main coronary: LM is large and patent without significant disease gives rise to circumflex and LAD branches Left anterior descending: The LAD is calcified and has a high-grade 80-90% lesion proximal segment of the takeoff of the major diagonal. The major diagonal has an ostial 80-90% lesion it is a long vessel without significant disease distally. The mid to apical LAD has mild plaquing the apical LAD is relatively disease-free. Left circumflex: Circumflex has mild disease proximally. AV groove circumflex is without significant disease. The major OM is relatively disease-free. Right coronary artery: Right dominant system. The RCA has mild plaquing and is calcified without obstructive disease gives rise to a small PDA but a large PLV system COMPLICATIONS: None. DIAGNOSTIC Altagracia Sorensen MD CV CARDIAC CATH PROCEDUR ES Final Result * (ABNORMAL) CBC without differential (01/13/2025 12:30 PM CDT) Pathologist [facility] [place] WBC 7.18 3.80 - 9.90 K/cumm Hgb 9.1(L) 11.9 - 15.5 g/dL [facility] Hct 25.7(L) 35.6 - 45.5 % [facility] Plt 198 150 - 400 K/cumm [facility] MPV 9.3 9.1 - 12.3 fL [facility] RBC 2.75(L) 3.90 - 5.20 M/cumm [facility] MCV 93.5 81.3 - 96.4 fL [facility] MCH 33.1 27.1 - 33.3 pg [facility] MCHC 35.4 32.3 - 35.7 g/dL [facility] RDW CV 13.3 11.1 - 14.9 % [facility] RDW SD 44.9 35.7 - 48.1 fL [facility] NRBC abs 0.00 0.00 - 0.01 K/cumm [facility] Blood 01/13/2025 12:3 0 PM CDT 01/13/2025 12:41 PM CDT Narrative [facility] - 01/13/2025 1:00 PM CDT Post normal saline bolus dose. us Mera Parra NP LAB BLOOD ORDERABLES F inal Result Performing Organization Address [facility] Co de Phone Number [facility] Department [place] [address] * eGFR (01/12/2025 9:06 PM CDT) eGFR 72 >=60 mL/min/1. 73 m2 Comment: Interpretive Data Reference Interval Normal >/= 90 mL/min/1.73m2 Mildly decreased* 60 - 89 mL/min/1.73m2 Mildly to moderately decreased 45 - 59 mL/min/1.73m2 Moderately to severely decreased 30 - 44 mL/min/1.73m2 Severely decreased 15 - 29 mL/min/1.73m2 Kidney Failure < 15 mL/min/1.73m2 *Relative to young adult level Estimated glomerular filtration rate is determined by the 2020 CKD-EPI equation recommended by the National Kidney Foundation (A Unifying Approach to GFR Estimation: Recommendations of the NKF-ASK Task Force on Reassessing the Inclusion of Race in Diagnosing Kidney Disease, JASN 202). The CKD-EPI equation should not be used for patients with unstable renal function and has not been validated in children and those over 70. Current interpretive data was last reviewed 2021. Blood 01/12/2025 9:06 PM CDT 01/12/2025 10:06 PM CDT us Phi Armstrong MD LAB BLOOD ORDERABLES Fi nal Result Performing Organization Address [facility]/ZIP Co de Phone Number [facility] Department [place] [address] * (ABNORMAL) Differential, auto (01/12/2025 9:06 PM CDT) Neutrophil abs 5.06 1.50 - 6.50 K/cumm Imm gran abs 0.03 0.00 - 0.10 K/cumm [facility] Lymphocyte abs 1.07 0.80 - 3.30 K/cumm [facility] Monocyte abs 0.93(H) 0.20 - 0.80 K/cumm [facility] Eosinophil abs 0.14 0.00 - 0.50 K/cumm [facility] Basophil abs 0.03 0.00 - 0.10 K/cumm [facility] Neutrophil pct 69.8 % [facility] Comment: Interpretive Data Percent cell count reference ranges are not reported, since discordance with absolute values may lead to misinterpretation of CBC data. Current Interpretive Data was last revised on 2017. Imm gran pct 0.4 % [facility] Comment: Interpretive Data Percent cell count reference ranges are not reported, since discordance with absolute values may lead to misinterpretation of CBC data. Current Interpretive Data was last revised on 2017. Lymphocyte pct 14.7 % [facility] Comment: Interpretive Data Percent cell count reference ranges are not reported, since discordance with absolute values may lead to misinterpretation of CBC data. Current Interpretive Data was last revised on 2017. Monocyte pct 12.8 % [facility] Comment: Interpretive Data Percent cell count reference ranges are not reported, since discordance with absolute values may lead to misinterpretation of CBC data. Current Interpretive Data was last revised on 2017. Eosinophil pct 1.9 % [facility] Comment: Interpretive Data Percent cell count reference ranges are not reported, since discordance with absolute values may lead to misinterpretation of CBC data. Current Interpretive Data was last revised on 2017. Basophil pct 0.4 % [facility] Comment: Interpretive Data Percent cell count reference ranges are not reported, since discordance with absolute values may lead to misinterpretation of CBC data. Current Interpretive Data was last revised on 2017. Blood 01/12/2025 9:06 PM CDT 01/12/2025 10:06 PM CDT us Phi Armstrong MD LAB BLOOD ORDERABLES Fi nal Result [facility] Department [place] [address] * (ABNORMAL) CBC with auto differential (01/12/2025 9:06 PM CDT) [facility] WBC 7.26 3.80 - 9.90 K/cumm Hgb 9.1(L) 11.9 - 15.5 g/dL [facility] Hct 26.0(L) 35.6 - 45.5 % [facility] Plt 234 150 - 400 K/cumm [facility] MPV 9.4 9.1 - 12.3 fL [facility] RBC 2.78(L) 3.90 - 5.20 M/cumm [facility] MCV 93.5 81.3 - 96.4 fL [facility] MCH 32.7 27.1 - 33.3 pg [facility] MCHC 35.0 32.3 - 35.7 g/dL [facility] RDW CV 13.2 11.1 - 14.9 % [facility] RDW SD 45.0 35.7 - 48.1 fL [facility] NRBC abs 0.00 0.00 - 0.01 K/cumm [facility] Blood 01/12/2025 9:06 PM CDT 01/12/2025 10:06 PM CDT us Phi Armstrong MD LAB BLOOD ORDERABLES Fi nal Result Performing Organization Address [facility]/State/ZIP Co de Phone Number [facility] Department [place] [address] * (ABNORMAL) Phosphorus (01/12/2025 9:06 PM CDT) [facility] Phosphorus, pl 2.2(L) 2.3 - 4.5 mg/dL Blood 01/12/2025 9:06 PM CDT 01/12/2025 10:06 PM CDT us Sukhdev Fritz MD LAB BLOOD ORDERABL ES Final Result Performing Organization Address City/[facility]/ZIP Co de Phone Number [facility] Department [place] [address] * Magnesium (01/12/2025 9:06 PM CDT) [facility] Magnesium 1.8 1.4 - 2.5 mg/dL Blood 01/12/2025 9:06 PM CDT 01/12/2025 10:06 PM CDT Sukhdev Fritz MD LAB BLOOD ORDERABL ES Final Result Performing Organization Address [facility] de Phone Number [facility] Department [place] [address] * (ABNORMAL) Comprehensive metabolic panel (01/12/2025 9:06 PM CDT) [facility] Sodium 132(L) 135 - 145 mmol/L Potassium, pl 3.5 3.3 - 4.9 mmol/L [facility] Chloride 94(L) 97 - 110 mmol/L [facility] CO2 29 22 - 32 mmol/L [facility] Anion gap 9 2 - 15 mmol/L [facility] BUN 5(L) 6 - 25 mg/dL [facility] Creatinine 0.83 0.60 - 1.10 mg/dL [facility] Glucose 81 70 - 199 mg/dL [facility] Comment: Interpretive Data Fasting glucose >/= 126 mg/dl is diagnostic for diabetes. Fasting is defined as no caloric intake for at least 8 hours. Fasting glucose between 100 mg/dl to 125 mg/dl is diagnostic of prediabetes. In a patient with classic symptoms of hyperglycemia or hyperglycemic crisis, a random glucose >/= 200 mg/dl is diagnostic for diabetes. In the absence of unequivocal hyperglycemia, results should be confirmed by repeat testing. The classification and Diagnosis of Diabetes Diabetes Care 2021; 46: S19-S40. Current interpretive data was last revised 2022. Calcium 8.3(L) 8.5 - 10.3 mg/dL [facility] Bilirubin, total 0.3 0.1 - 1.2 mg/dL [facility] Protein, pl 5.9(L) 6.5 - 8.5 g/dL [facility] Albumin 2.9(L) 3.5 - 5.0 g/dL [facility] Alk phos 96 40 - 130 Units/L [facility] ALT 24 7 - 45 Units/L [facility] AST 28 10 - 45 Units/L [facility] Blood 01/12/2025 9:06 PM CDT 01/12/2025 10:06 PM CDT us Phi Armstrong MD LAB BLOOD ORDERABLES Fi nal Result [facility] Department [place] [address] * eGFR (01/11/2025 9:02 PM CDT) eGFR 65 >=60 mL/min/1. 73 m2 Comment: Interpretive Data Reference Interval Normal >/= 90 mL/min/1.73m2 Mildly decreased* 60 - 89 mL/min/1.73m2 Mildly to moderately decreased 45 - 59 mL/min/1.73m2 Moderately to severely decreased 30 - 44 mL/min/1.73m2 Severely decreased 15 - 29 mL/min/1.73m2 Kidney Failure < 15 mL/min/1.73m2 *Relative to young adult level Estimated glomerular filtration rate is determined by the 2020 CKD-EPI equation recommended by the National Kidney Foundation (A Unifying Approach to GFR Estimation: Recommendations of the NKF-ASK Task Force on Reassessing the Inclusion of Race in Diagnosing Kidney Disease, JASN 2020). The CKD-EPI equation should not be used for patients with unstable renal function and has not been validated in children and those over 70. Current interpretive data was last reviewed 2021. Blood 01/11/2025 9:02 PM CDT 01/11/2025 9:43 PM CDT us Phi Armstrong MD LAB BLOOD ORDERABLES Fi nal Result [facility] Department [place] [address] * (ABNORMAL) Differential, auto (01/11/2025 9:02 PM CDT) Neutrophil abs 6.10 1.50 - 6.50 K/cumm Imm gran abs 0.05 0.00 - 0.10 K/cumm [facility] Lymphocyte abs 1.01 0.80 - 3.30 K/cumm [facility] Monocyte abs 0.93(H) 0.20 - 0.80 K/cumm [facility] Eosinophil abs 0.16 0.00 - 0.50 K/cumm [facility] Basophil abs 0.02 0.00 - 0.10 K/cumm [facility] Neutrophil pct 73.9 % [facility] Comment: Interpretive Data Percent cell count reference ranges are not reported, since discordance with absolute values may lead to misinterpretation of CBC data. Current Interpretive Data was last revised on 2017. Imm gran pct 0.6 % [facility] Comment: Interpretive Data Percent cell count reference ranges are not reported, since discordance with absolute values may lead to misinterpretation of CBC data. Current Interpretive Data was last revised on 2017. Lymphocyte pct 12.2 % [facility] Comment: Interpretive Data Percent cell count reference ranges are not reported, since discordance with absolute values may lead to misinterpretation of CBC data. Current Interpretive Data was last revised on 2017. Monocyte pct 11.2 % [facility] Comment: Interpretive Data Percent cell count reference ranges are not reported, since discordance with absolute values may lead to misinterpretation of CBC data. Current Interpretive Data was last revised on 2017. Eosinophil pct 1.9 % [facility] Comment: Interpretive Data Percent cell count reference ranges are not reported, since discordance with absolute values may lead to misinterpretation of CBC data. Current Interpretive Data was last revised on 2017. Basophil pct 0.2 % [facility] Comment: Interpretive Data Percent cell count reference ranges are not reported, since discordance with absolute values may lead to misinterpretation of CBC data. Current Interpretive Data was last revised on 2017. Blood 01/11/2025 9:02 PM CDT 01/11/2025 9:43 PM CDT Phi Armstrong MD LAB BLOOD ORDERABLES Fi nal Result Performing Organization Address City/[facility]/ZIP Co de Phone Number [facility] Department [place] [employer] [place] [address] * (ABNORMAL) CBC with auto differential (01/11/2025 9:02 PM CDT) Pathologist [facility] [place] WBC 8.12 3.80 - 9.90 K/cumm Hgb 9.2(L) 11.9 - 15.5 g/dL [facility] Hct 26.1(L) 35.6 - 45.5 % [facility] Plt 268 150 - 400 K/cumm [facility] MPV 9.2 9.1 - 12.3 fL [facility] RBC 2.82(L) 3.90 - 5.20 M/cumm [facility] MCV 92.6 81.3 - 96.4 fL [facility] MCH 32.6 27.1 - 33.3 pg [facility] MCHC 35.2 32.3 - 35.7 g/dL [facility] RDW CV 13.3 11.1 - 14.9 % [facility] RDW SD 44.6 35.7 - 48.1 fL [facility] NRBC abs 0.00 0.00 - 0.01 K/cumm [facility] Blood 01/11/2025 9:02 PM CDT 01/11/2025 9:43 PM CDT Phi Armstrong MD LAB BLOOD ORDERABLES Fi nal Result Performing Organization Address City/[facility]/ZIP Co de Phone Number [facility] Department [place] [address] * (ABNORMAL) Comprehensive metabolic panel (01/11/2025 9:02 PM CDT) Sodium 127(L) 135 - 145 mmol/L Potassium, pl 3.3 3.3 - 4.9 mmol/L [facility] Chloride 92(L) 97 - 110 mmol/L [facility] CO2 27 22 - 32 mmol/L [facility] Anion gap 8 2 - 15 mmol/L [facility] BUN 6 6 - 25 mg/dL [facility] Creatinine 0.90 0.60 - 1.10 mg/dL [facility] Glucose 91 70 - 199 mg/dL [facility] Comment: Interpretive Data Fasting glucose >/= 126 mg/dl is diagnostic for diabetes. Fasting is defined as no caloric intake for at least 8 hours. Fasting glucose between 100 mg/dl to 125 mg/dl is diagnostic of prediabetes. In a patient with classic symptoms of hyperglycemia or hyperglycemic crisis, a random glucose >/= 200 mg/dl is diagnostic for diabetes. In the absence of unequivocal hyperglycemia, results should be confirmed by repeat testing. The classification and Diagnosis of Diabetes Diabetes Care 202; 46: S19-S40. Current interpretive data was last revised 2022. Calcium 8.1(L) 8.5 - 10.3 mg/dL [facility] Bilirubin, total 0.3 0.1 - 1.2 mg/dL [facility] Protein, pl 5.5(L) 6.5 - 8.5 g/dL [facility] Albumin 2.6(L) 3.5 - 5.0 g/dL [facility] Alk phos 86 40 - 130 Units/L [facility] ALT 20 7 - 45 Units/L [facility] AST 22 10 - 45 Units/L [facility] Blood 01/11/2025 9:02 PM CDT 01/11/2025 9:43 PM CDT us Phi Armstrong MD LAB BLOOD ORDERABLES Fi nal Result [facility] Department [place] [address] * Blood culture Blood (01/11/2025 6:58 PM CDT) Report Final Report: No growth Blood 01/11/2025 6:58 PM CDT 01/11/2025 7:30 PM CDT Narrative [facility] - 01/16/2025 7:00 AM CDT From a different site than #1. Collection->Peripheral 1. Blood cultures are incubated for 4 days on a continuously monitored blood culture system. The first report of a negative culture is issued within 24 hours of receipt of the specimen in the laboratory. 2. Positive culture results are reported as soon as they are detected. 3. The most important factor for detection of microbes in the setting of bloodstream infection is the volume of blood submitted for culture. Failure to collect an optimal blood volume can result in false negative blood cultures. 4. For pediatric patients, the recommended blood volume to collect follows a weight based strategy. See the electronic test catalog for collection instructions. 5. For positive blood cultures, a rapid molecular test may be performed for organism identification using the chioma ePlex blood culture identification panel for gram positive (BCID-GP) and gram negative (BCID-GN) organisms. This nucleic acid amplification test detects microbial DNA in positive blood culture broth. This assay has been cleared by the [place] Food and Drug Administration and its performance characteristics have been verified by the [facility] Microbiology Laboratory. For questions about this culture, contact the Microbiology Laboratory at [phone]. Interpretive data was last revised on 24. Sukhdev Fritz MD LAB MICROBIOLOGY - GENERAL ORDERABLES Final Result [facility] Department [place] [address] * Blood culture Blood (01/11/2025 6:58 PM CDT) Report Final Report: No growth Blood 01/11/2025 6:58 PM CDT 01/11/2025 7:30 PM CDT Narrative [facility] - 01/16/2025 7:00 AM CDT Collection->Peripheral 1. Blood cultures are incubated for 4 days on a continuously monitored blood culture system. The first report of a negative culture is issued within 24 hours of receipt of the specimen in the laboratory. 2. Positive culture results are reported as soon as they are detected. 3. The most important factor for detection of microbes in the setting of bloodstream infection is the volume of blood submitted for culture. Failure to collect an optimal blood volume can result in false negative blood cultures. 4. For pediatric patients, the recommended blood volume to collect follows a weight based strategy. See the electronic test catalog for collection instructions. 5. For positive blood cultures, a rapid molecular test may be performed for organism identification using the chioma ePlex blood culture identification panel for gram positive (BCID-GP) and gram negative (BCID-GN) organisms. This nucleic acid amplification test detects microbial DNA in positive blood culture broth. This assay has been cleared by the [place] Food and Drug Administration and its performance characteristics have been verified by the [facility] Microbiology Laboratory. For questions about this culture, contact the Microbiology Laboratory at [phone]. Interpretive data was last revised on 24. Sukhdev Fritz MD LAB MICROBIOLOGY - GENERAL ORDERABLES Final Result [facility] Department [place] [address] * EEG (01/11/2025 6:41 PM CDT) Anatomical Region Laterality Modality EEG Narrative 01/12/2025 1:26 PM CDT Routine EEG Report Patient Name: Venkatesh Zaldivar [facility] Medical Record Number (MRN): [id number] [facility] Record: [id number] Date of (): 1945 EEG Date: 01/11/2025 Ordering Provider: Niru Vu MD CC: Pascual Connor Start Time: 01/11/2025 5:39:21 PM End Time: 01/11/2025 6:03:32 PM Introduction: Ms. Zaldivar is a 79 y.o. 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 EEG was performed to evaluate for seizures. This is a 32 channel EEG recording acquired on a [employer] EEG-1200 acquisition system. Scalp electrodes were placed according to the international 10-20 System. The analog EEG was filtered from 1-70 Hz and digitally sampled at 200 Hz. The record was then reformatted for review in bipolar and referential montages. EEG Description: There was a poorly formed 8 Hz posterior rhythm. The background also included bilateral, diffuse, asynchronous admixed theta and delta range activity. There were sporadic generalized discharges with a triphasic morphology. The record showed variability. Hyperventilation was not performed. Photic strobe stimulation was not performed. There were no focal, lateralized or epileptiform abnormalities. Interpretation: The EEG was abnormal due to 1) generalized discharges with a triphasic morphology, 2) mild to moderate generalized slowing. Generalized discharges with triphasic morphology are a nonspecific marker of diffuse cerebral dysfunction commonly seen in the setting of toxic-metabolic encephalopathy, but may be due to other etiologies including epilepsy. Generalized slowing indicates diffuse cerebral dysfunction as seen in metabolic, toxic, or diffuse or multifocal structural abnormalities. By signing this report, the attending Electroencephalographer certifies that he/she personally reviewed the electrodiagnostics study and has edited this report to fully conform with his/her intent. Signing Attending: Michael Gutierrez MD PhD Sukhdev Fritz MD NEUROLOGY ORDERABL ES Final Result * Urinalysis reflex to microscopic and culture Urine (01/11/2025 6:13 PM CDT) Color, ur Straw Yellow Clarity, ur Clear Clear [facility] Specific gravity, ur 1.022 1.003 - 1.030 [facility] pH, urine 7.5 [facility] Comment: Interpretive Data U rine pH is affected by diet, medications, systemic acid-base disturbances, and renal tubular function. pH may affect urinary stone formation. For example, urine pH below 6.0 may help reduce the tendency for calcium phosphate stones and pH greater than 6.0 may reduce the tendency for uric acid stone formation. Source: [place] [employer] Current Interpretive Data was last revised on 2017 Protein, ur ql Negative Negative [facility] Glucose, ur ql Negative Negative [facility] Ketones, ur Negative Negative [facility] Bilirubin, ur Negative Negative [facility] Blood, ur Negative Negative [facility] Urobilinogen, ur <2.0 <2.0 mg/dL [facility] Nitrite, ur Negative Negative [facility] Leukocyte esterase, ur Negative Negative [facility] UA reflex comment Reflex conditions for microscopic UA and culture not met. [facility] Urine 01/11/2025 6:13 PM CDT 01/11/2025 6:19 PM CDT Sukhdev Fritz MD LAB MICROBIOLOGY - GENERAL ORDERABLES Final Result Performing Organization Address [facility] Co de Phone Number [facility] Department [place] [address] * (ABNORMAL) Thyroid Function Wells (01/11/2025 5:04 PM CDT) Pathologist [facility] [place] TSH 18.40(H) 0.30 - 4.20 mcIUnit/mL Comment:Repeated and Verifie d Blood 01/11/2025 5:04 PM CDT 01/11/2025 5:15 PM CDT Sukhdev Fritz MD LAB BLOOD ORDERABL ES Final Result Performing Organization Address [facility] Co de Phone Number [facility] Department [place] [address] * T4, free (01/11/2025 5:04 PM CDT) Free T4 1.05 0.90 - 1.70 ng/dL Blood 01/11/2025 5:04 PM CDT 01/11/2025 5:15 PM CDT Narrative [facility] - 01/11/2025 10:38 PM CDT This test was reflexed from a TSH result. Sukhdev Fritz MD LAB BLOOD ORDERABL ES Final Result Performing Organization Address [facility] Co de Phone Number [facility] [place] [place] [address] * Phosphorus (01/11/2025 5:04 PM CDT) Phosphorus, pl 2.6 2.3 - 4.5 mg/dL Blood 01/11/2025 5:04 PM CDT 01/11/2025 5:15 PM CDT Sukhdev Fritz MD LAB BLOOD ORDERABL ES Final Result Performing Organization Address [facility] de Phone Number [facility] [place] [address] * Magnesium (01/11/2025 5:04 PM CDT) [facility] Magnesium 1.6 1.4 - 2.5 mg/dL Blood 01/11/2025 5:04 PM CDT 01/11/2025 5:15 PM CDT Sukhdev Fritz MD LAB BLOOD ORDERABL ES Final Result Performing Organization Address [facility] de Phone Number [facility] [place] [address] * (ABNORMAL) Blood gas, venous (01/11/2025 5:04 PM CDT) pH, Venous 7.48(H) 7.32 - 7.43 PCO2, Venous 35(L) 40 - 50 mmHg [facility] PO2, Venous 189 mmHg [facility] Comment: Interpretive Data No Reference Range Established Current Interpretive Data was last revised on 2017. HCO3 Venous, Calculated 26 20 - 30 mmol/L [facility] BE, venous 2 mmol/L [facility] Comment: Interpretive Data No Reference Range Established Current Interpretive Data was last revised on 2017. Blood 01/11/2025 5:04 PM CDT 01/11/2025 5:11 PM CDT Sukhdev Fritz MD LAB BLOOD ORDERABL ES Final Result Performing Organization Address [facility] Co de Phone Number [facility] [place] [address] * Ammonia (01/11/2025 5:04 PM CDT) Ammonia <20 <=50 mcmol/L Comment:Repeated and Verifie d Blood 01/11/2025 5:04 PM CDT 01/11/2025 5:14 PM CDT Sukhdev Fritz MD LAB BLOOD ORDERABL ES Final Result Performing Organization Address [facility] de Phone Number [facility] [place] [address] * CTA/CTP Rapid Stroke (C) (01/11/2025 4:33 PM CDT) Anatomical Region Laterality Modality Head and Neck N/A Computed Tomogra phy 01/11/2025 5:05 PM CDT Impressions 01/11/2025 5:13 PM CDT 1. No acute intracranial hemorrhage or large territory edematous infarct. 2. Slight increase in ventriculomegaly with unchanged position of right frontal approach ventriculostomy catheter. 3. No measurable perfusion deficit. 4. No intracranial large vessel occlusion nor severe stenosis. 5. No significant (>50%) carotid stenosis. 6. Severe disc height loss with mild endplate irregularity and sclerosis at T1-T2 corresponding to edema and enhancement seen on the prior MRI dated 01/02/2025 and unchanged compared to the thoracic spine CT dated 12/27/2024. 7. Increasing left greater than right pleural effusions, incompletely imaged. The Non Critical CT head results were discussed with Dr. Mccarty by Dr. Davidson on 01/11/2025 4:19 PM. The Non Critical CTA/CTP head results were discussed with Dr. Mccarty by Dr. Davidson on 01/11/2025 4:19 PM. Dictated by: Alfredo Davidson MD The radiology attending physician has personally reviewed this study, and had reviewed and/or edited this written report and agrees with it. Electronically signed by: Bashir Blanco M.D. Narrative 01/11/2025 5:13 PM CDT EXAMINATION: 1. Computed tomography angiography (CTA) of the head without and with contrast 2. Computed tomography angiography (CTA) of the neck with contrast 3. CT perfusion imaging of the head with contrast 4. 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 Not a TNK candidate. Possible thrombectomy candidate. TECHNIQUE: CT of the head was performed with images acquired from skull base to vertex without intravenous contrast. Computed tomographic angiography was obtained from the aortic arch to the vertex following the uneventful administration of intravenous contrast. 3D images of the CTA were generated on a dedicated workstation/time study observer. [employer] software ([employer]) was used for automated analyses of the CTA. CT perfusion of the brain was performed with intravenous contrast using a separate data acquisition. These data were transmitted to a separate workstation/time study observer for processing by [employer] software ([employer]) to produce automated calculations of the estimated cerebral blood flow and Tmax. CT of the cervical spine was performed according to the standard protocol without intravenous contrast. Contrast information: 110 mL Optiray-350 IV COMPARISON: MRI brain 01/08/2025, CT head and neck 01/02/2025. FINDINGS: HEAD CT FINDINGS: There is no acute intracranial hemorrhage. There is no large territory of parenchymal edema. Increase in ventriculomegaly involving the lateral ventricles and 3rd ventricle. The bifrontal distance measures 4.4 cm, previously 3.8 cm. The 3rd ventricular diameter measures 1.0 cm, previously 0.9 cm. Slightly decreased conspicuity of prominent subarachnoid spaces. Unchanged position of a right frontal approach ventriculostomy catheter with the tip terminating near midline in the right lateral ventricle. There is no mass effect or midline shift. Bilateral lens replacements. The paranasal sinuses are unremarkable. There is trace bilateral mastoid fluid. No acute skull fracture. ANGIOGRAPHIC FINDINGS: The visualized aortic arch has a two-vessel branching pattern. There is no significant stenosis of the origins of the great vessels. There is no geographic area of vascular paucity in the brain. Left anterior circulation: L CCA: no occlusion or significant stenosis L carotid bifurcation: Calcifications without occlusion or significant stenosis L ICA cervical: no occlusion or significant stenosis L ICA intracranial: Calcifications without occlusion or significant stenosis L M1: no occlusion or significant stenosis L M2 proximal or dominant: no occlusion or significant stenosis L mid-M2/M3 branches: no occlusion or significant stenosis L ELOY: no occlusion or significant stenosis Right anterior circulation: R CCA: no occlusion or significant stenosis R carotid bifurcation: no occlusion or significant stenosis R ICA cervical: no occlusion or significant stenosis R ICA intracranial: Calcifications without occlusion or significant stenosis R M1: no occlusion or significant stenosis R M2 proximal or dominant: no occlusion or significant stenosis R mid-M2/M3 branches: no occlusion or significant stenosis R ELOY: no occlusion or significant stenosis Posterior circulation: L Vertebral Artery: no occlusion or significant stenosis R Vertebral Artery: no occlusion or significant stenosis Basilar Artery: no occlusion or significant stenosis L CRUSHER SCREEN REPAIRER: no occlusion or significant stenosis R CRUSHER SCREEN REPAIRER: no occlusion or significant stenosis There is no CTA evidence for cerebral aneurysm. There is no evidence for an arteriovenous malformation. INCIDENTAL FINDINGS: There is no suspicious cervical lymphadenopathy. Bilateral pleural effusions with associated atelectasis, increased from 01/02/2025. CERVICAL SPINE: Postsurgical changes of instrumented anterior cervical discectomy and fusion from C4 through C7. The hardware is intact with no periprosthetic lucency. There is no acute fracture. Vertebral bodies are normal in height without compression fractures. The craniocervical junction is normal. No soft tissue abnormality is identified. There is multilevel degenerative disc and joint disease above and below the spinal fusion. At T1-T2, there is severe disc height loss and mild endplate irregularity with sclerosis, corresponding to an area of edema and enhancement seen on prior MRI. There is mild irregularity along the right facets at this level. No high-grade osseous neuroforaminal or spinal canal stenosis. PERFUSION FINDINGS: There is no measurable perfusion deficit in the brain. Estimated ischemic core volume (rCBF < 0.3): 0 mL Estimated hypoperfusion volume (Tmax > 6 sec): 0 mL Procedure Note Bashir Blanco MD - 01/11/2025 EXAMINATION: 1. Computed tomography angiography (CTA) of the head without and with contrast 2. Computed tomography angiography (CTA) of the neck with contrast 3. CT perfusion imaging of the head with contrast 4. 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 Not a TNK candidate. Possible thrombectomy candidate. TECHNIQUE: CT of the head was performed with images acquired from skull base to vertex without intravenous contrast. Computed tomographic angiography was obtained from the aortic arch to the vertex following the uneventful administration of intravenous contrast. 3D images of the CTA were generated on a dedicated workstation/time study observer. [employer] software ([employer]) was used for automated analyses of the CTA. CT perfusion of the brain was performed with intravenous contrast using a separate data acquisition. These data were transmitted to a separate workstation/time study observer for processing by [employer] software ([employer]) to produce automated calculations of the estimated cerebral blood flow and Tmax. CT of the cervical spine was performed according to the standard protocol without intravenous contrast. Contrast information: 110 mL Optiray-350 IV COMPARISON: MRI brain 01/08/2025, CT head and neck 01/02/2025. FINDINGS: HEAD CT FINDINGS: There is no acute intracranial hemorrhage. There is no large territory of parenchymal edema. Increase in ventriculomegaly involving the lateral ventricles and 3rd ventricle. The bifrontal distance measures 4.4 cm, previously 3.8 cm. The 3rd ventricular diameter measures 1.0 cm, previously 0.9 cm. Slightly decreased conspicuity of prominent subarachnoid spaces. Unchanged position of a right frontal approach ventriculostomy catheter with the tip terminating near midline in the right lateral ventricle. There is no mass effect or midline shift. Bilateral lens replacements. The paranasal sinuses are unremarkable. There is trace bilateral mastoid fluid. No acute skull fracture. ANGIOGRAPHIC FINDINGS: The visualized aortic arch has a two-vessel branching pattern. There is no significant stenosis of the origins of the great vessels. There is no geographic area of vascular paucity in the brain. Left anterior circulation: L CCA: no occlusion or significant stenosis L carotid bifurcation: Calcifications without occlusion or significant stenosis L ICA cervical: no occlusion or significant stenosis L ICA intracranial: Calcifications without occlusion or significant stenosis L M1: no occlusion or significant stenosis L M2 proximal or dominant: no occlusion or significant stenosis L mid-M2/M3 branches: no occlusion or significant stenosis L ELOY: no occlusion or significant stenosis Right anterior circulation: R CCA: no occlusion or significant stenosis R carotid bifurcation: no occlusion or significant stenosis R ICA cervical: no occlusion or significant stenosis R ICA intracranial: Calcifications without occlusion or significant stenosis R M1: no occlusion or significant stenosis R M2 proximal or dominant: no occlusion or significant stenosis R mid-M2/M3 branches: no occlusion or significant stenosis R ELOY: no occlusion or significant stenosis Posterior circulation: L Vertebral Artery: no occlusion or significant stenosis R Vertebral Artery: no occlusion or significant stenosis Basilar Artery: no occlusion or significant stenosis L CRUSHER SCREEN REPAIRER: no occlusion or significant stenosis R CRUSHER SCREEN REPAIRER: no occlusion or significant stenosis There is no CTA evidence for cerebral aneurysm. There is no evidence for an arteriovenous malformation. INCIDENTAL FINDINGS: There is no suspicious cervical lymphadenopathy. Bilateral pleural effusions with associated atelectasis, increased from 01/02/2025. CERVICAL SPINE: Postsurgical changes of instrumented anterior cervical discectomy and fusion from C4 through C7. The hardware is intact with no periprosthetic lucency. There is no acute fracture. Vertebral bodies are normal in height without compression fractures. The craniocervical junction is normal. No soft tissue abnormality is identified. There is multilevel degenerative disc and joint disease above and below the spinal fusion. At T1-T2, there is severe disc height loss and mild endplate irregularity with sclerosis, corresponding to an area of edema and enhancement seen on prior MRI. There is mild irregularity along the right facets at this level. No high-grade osseous neuroforaminal or spinal canal stenosis. PERFUSION FINDINGS: There is no measurable perfusion deficit in the brain. Estimated ischemic core volume (rCBF < 0.3): 0 mL Estimated hypoperfusion volume (Tmax > 6 sec): 0 mL IMPRESSION: 1. No acute intracranial hemorrhage or large territory edematous infarct. 2. Slight increase in ventriculomegaly with unchanged position of right frontal approach ventriculostomy catheter. 3. No measurable perfusion deficit. 4. No intracranial large vessel occlusion nor severe stenosis. 5. No significant (>50%) carotid stenosis. 6. Severe disc height loss with mild endplate irregularity and sclerosis at T1-T2 corresponding to edema and enhancement seen on the prior MRI dated 01/02/2025 and unchanged compared to the thoracic spine CT dated 12/27/2024. 7. Increasing left greater than right pleural effusions, incompletely imaged. The Non Critical CT head results were discussed with Dr. Mccarty by Dr. Davidson on 01/11/2025 4:19 PM. The Non Critical CTA/CTP head results were discussed with Dr. Mccarty by Dr. Davidson on 01/11/2025 4:19 PM. Dictated by: Alfredo Davidson MD The radiology attending physician has personally reviewed this study, and had reviewed and/or edited this written report and agrees with it. Electronically signed by: Bashir Blanco M.D. us Sukhdev Fritz MD IMG CT PROCEDURES Final Result * CT Cervical Spine WO Contrast (01/11/2025 4:33 PM CDT) Anatomical Region Laterality Modality Spine N/A Computed Tomogra phy 01/11/2025 5:05 PM CDT Impressions 01/11/2025 5:13 PM CDT 1. No acute intracranial hemorrhage or large territory edematous infarct. 2. Slight increase in ventriculomegaly with unchanged position of right frontal approach ventriculostomy catheter. 3. No measurable perfusion deficit. 4. No intracranial large vessel occlusion nor severe stenosis. 5. No significant (>50%) carotid stenosis. 6. Severe disc height loss with mild endplate irregularity and sclerosis at T1-T2 corresponding to edema and enhancement seen on the prior MRI dated 01/02/2025 and unchanged compared to the thoracic spine CT dated 12/27/2024. 7. Increasing left greater than right pleural effusions, incompletely imaged. The Non Critical CT head results were discussed with Dr. Mccarty by Dr. Davidson on 01/11/2025 4:19 PM. The Non Critical CTA/CTP head results were discussed with Dr. Mccarty by Dr. Davidson on 01/11/2025 4:19 PM. Dictated by: Alfredo Davidson MD The radiology attending physician has personally reviewed this study, and had reviewed and/or edited this written report and agrees with it. Electronically signed by: Bashir Blanco M.D. Narrative 01/11/2025 5:13 PM CDT EXAMINATION: 1. Computed tomography angiography (CTA) of the head without and with contrast 2. Computed tomography angiography (CTA) of the neck with contrast 3. CT perfusion imaging of the head with contrast 4. 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 Not a TNK candidate. Possible thrombectomy candidate. TECHNIQUE: CT of the head was performed with images acquired from skull base to vertex without intravenous contrast. Computed tomographic angiography was obtained from the aortic arch to the vertex following the uneventful administration of intravenous contrast. 3D images of the CTA were generated on a dedicated workstation/time study observer. [employer] software ([employer]) was used for automated analyses of the CTA. CT perfusion of the brain was performed with intravenous contrast using a separate data acquisition. These data were transmitted to a separate workstation/time study observer for processing by [employer] software ([employer]) to produce automated calculations of the estimated cerebral blood flow and Tmax. CT of the cervical spine was performed according to the standard protocol without intravenous contrast. Contrast information: 110 mL Optiray-350 IV COMPARISON: MRI brain 01/08/2025, CT head and neck 01/02/2025. FINDINGS: HEAD CT FINDINGS: There is no acute intracranial hemorrhage. There is no large territory of parenchymal edema. Increase in ventriculomegaly involving the lateral ventricles and 3rd ventricle. The bifrontal distance measures 4.4 cm, previously 3.8 cm. The 3rd ventricular diameter measures 1.0 cm, previously 0.9 cm. Slightly decreased conspicuity of prominent subarachnoid spaces. Unchanged position of a right frontal approach ventriculostomy catheter with the tip terminating near midline in the right lateral ventricle. There is no mass effect or midline shift. Bilateral lens replacements. The paranasal sinuses are unremarkable. There is trace bilateral mastoid fluid. No acute skull fracture. ANGIOGRAPHIC FINDINGS: The visualized aortic arch has a two-vessel branching pattern. There is no significant stenosis of the origins of the great vessels. There is no geographic area of vascular paucity in the brain. Left anterior circulation: L CCA: no occlusion or significant stenosis L carotid bifurcation: Calcifications without occlusion or significant stenosis L ICA cervical: no occlusion or significant stenosis L ICA intracranial: Calcifications without occlusion or significant stenosis L M1: no occlusion or significant stenosis L M2 proximal or dominant: no occlusion or significant stenosis L mid-M2/M3 branches: no occlusion or significant stenosis L ELOY: no occlusion or significant stenosis Right anterior circulation: R CCA: no occlusion or significant stenosis R carotid bifurcation: no occlusion or significant stenosis R ICA cervical: no occlusion or significant stenosis R ICA intracranial: Calcifications without occlusion or significant stenosis R M1: no occlusion or significant stenosis R M2 proximal or dominant: no occlusion or significant stenosis R mid-M2/M3 branches: no occlusion or significant stenosis R ELOY: no occlusion or significant stenosis Posterior circulation: L Vertebral Artery: no occlusion or significant stenosis R Vertebral Artery: no occlusion or significant stenosis Basilar Artery: no occlusion or significant stenosis L CRUSHER SCREEN REPAIRER: no occlusion or significant stenosis R CRUSHER SCREEN REPAIRER: no occlusion or significant stenosis There is no CTA evidence for cerebral aneurysm. There is no evidence for an arteriovenous malformation. INCIDENTAL FINDINGS: There is no suspicious cervical lymphadenopathy. Bilateral pleural effusions with associated atelectasis, increased from 01/02/2025. CERVICAL SPINE: Postsurgical changes of instrumented anterior cervical discectomy and fusion from C4 through C7. The hardware is intact with no periprosthetic lucency. There is no acute fracture. Vertebral bodies are normal in height without compression fractures. The craniocervical junction is normal. No soft tissue abnormality is identified. There is multilevel degenerative disc and joint disease above and below the spinal fusion. At T1-T2, there is severe disc height loss and mild endplate irregularity with sclerosis, corresponding to an area of edema and enhancement seen on prior MRI. There is mild irregularity along the right facets at this level. No high-grade osseous neuroforaminal or spinal canal stenosis. PERFUSION FINDINGS: There is no measurable perfusion deficit in the brain. Estimated ischemic core volume (rCBF < 0.3): 0 mL Estimated hypoperfusion volume (Tmax > 6 sec): 0 mL Procedure Note Bashir Blanco MD - 01/11/2025 EXAMINATION: 1. Computed tomography angiography (CTA) of the head without and with contrast 2. Computed tomography angiography (CTA) of the neck with contrast 3. CT perfusion imaging of the head with contrast 4. 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 Not a TNK candidate. Possible thrombectomy candidate. TECHNIQUE: CT of the head was performed with images acquired from skull base to vertex without intravenous contrast. Computed tomographic angiography was obtained from the aortic arch to the vertex following the uneventful administration of intravenous contrast. 3D images of the CTA were generated on a dedicated workstation/time study observer. [employer] software ([employer]) was used for automated analyses of the CTA. CT perfusion of the brain was performed with intravenous contrast using a separate data acquisition. These data were transmitted to a separate workstation/time study observer for processing by [employer] software ([employer]) to produce automated calculations of the estimated cerebral blood flow and Tmax. CT of the cervical spine was performed according to the standard protocol without intravenous contrast. Contrast information: 110 mL Optiray-350 IV COMPARISON: MRI brain 01/08/2025, CT head and neck 01/02/2025. FINDINGS: HEAD CT FINDINGS: There is no acute intracranial hemorrhage. There is no large territory of parenchymal edema. Increase in ventriculomegaly involving the lateral ventricles and 3rd ventricle. The bifrontal distance measures 4.4 cm, previously 3.8 cm. The 3rd ventricular diameter measures 1.0 cm, previously 0.9 cm. Slightly decreased conspicuity of prominent subarachnoid spaces. Unchanged position of a right frontal approach ventriculostomy catheter with the tip terminating near midline in the right lateral ventricle. There is no mass effect or midline shift. Bilateral lens replacements. The paranasal sinuses are unremarkable. There is trace bilateral mastoid fluid. No acute skull fracture. ANGIOGRAPHIC FINDINGS: The visualized aortic arch has a two-vessel branching pattern. There is no significant stenosis of the origins of the great vessels. There is no geographic area of vascular paucity in the brain. Left anterior circulation: L CCA: no occlusion or significant stenosis L carotid bifurcation: Calcifications without occlusion or significant stenosis L ICA cervical: no occlusion or significant stenosis L ICA intracranial: Calcifications without occlusion or significant stenosis L M1: no occlusion or significant stenosis L M2 proximal or dominant: no occlusion or significant stenosis L mid-M2/M3 branches: no occlusion or significant stenosis L ELOY: no occlusion or significant stenosis Right anterior circulation: R CCA: no occlusion or significant stenosis R carotid bifurcation: no occlusion or significant stenosis R ICA cervical: no occlusion or significant stenosis R ICA intracranial: Calcifications without occlusion or significant stenosis R M1: no occlusion or significant stenosis R M2 proximal or dominant: no occlusion or significant stenosis R mid-M2/M3 branches: no occlusion or significant stenosis R ELOY: no occlusion or significant stenosis Posterior circulation: L Vertebral Artery: no occlusion or significant stenosis R Vertebral Artery: no occlusion or significant stenosis Basilar Artery: no occlusion or significant stenosis L CRUSHER SCREEN REPAIRER: no occlusion or significant stenosis R CRUSHER SCREEN REPAIRER: no occlusion or significant stenosis There is no CTA evidence for cerebral aneurysm. There is no evidence for an arteriovenous malformation. INCIDENTAL FINDINGS: There is no suspicious cervical lymphadenopathy. Bilateral pleural effusions with associated atelectasis, increased from 01/02/2025. CERVICAL SPINE: Postsurgical changes of instrumented anterior cervical discectomy and fusion from C4 through C7. The hardware is intact with no periprosthetic lucency. There is no acute fracture. Vertebral bodies are normal in height without compression fractures. The craniocervical junction is normal. No soft tissue abnormality is identified. There is multilevel degenerative disc and joint disease above and below the spinal fusion. At T1-T2, there is severe disc height loss and mild endplate irregularity with sclerosis, corresponding to an area of edema and enhancement seen on prior MRI. There is mild irregularity along the right facets at this level. No high-grade osseous neuroforaminal or spinal canal stenosis. PERFUSION FINDINGS: There is no measurable perfusion deficit in the brain. Estimated ischemic core volume (rCBF < 0.3): 0 mL Estimated hypoperfusion volume (Tmax > 6 sec): 0 mL IMPRESSION: 1. No acute intracranial hemorrhage or large territory edematous infarct. 2. Slight increase in ventriculomegaly with unchanged position of right frontal approach ventriculostomy catheter. 3. No measurable perfusion deficit. 4. No intracranial large vessel occlusion nor severe stenosis. 5. No significant (>50%) carotid stenosis. 6. Severe disc height loss with mild endplate irregularity and sclerosis at T1-T2 corresponding to edema and enhancement seen on the prior MRI dated 01/02/2025 and unchanged compared to the thoracic spine CT dated 12/27/2024. 7. Increasing left greater than right pleural effusions, incompletely imaged. The Non Critical CT head results were discussed with Dr. Mccarty by Dr. Davidson on 01/11/2025 4:19 PM. The Non Critical CTA/CTP head results were discussed with Dr. Mccarty by Dr. Davidson on 01/11/2025 4:19 PM. Dictated by: Alfredo Davidson MD The radiology attending physician has personally reviewed this study, and had reviewed and/or edited this written report and agrees with it. Electronically signed by: Bashir Blanco M.D. us Sukhdev Fritz MD IMG CT PROCEDURES Final Result * Lactate (01/11/2025 3:52 PM CDT) Lactate 1.2 0.7 - 2.0 mmol/L Blood 01/11/2025 3:52 PM CDT 01/11/2025 5:16 PM CDT us Skuhdev Fritz MD LAB BLOOD ORDERABL ES Final Result [facility] One [facility] Department [place] [address] * eGFR (01/11/2025 3:52 PM CDT) eGFR 64 >=60 mL/min/1. 73 m2 Comment: Interpretive Data Reference Interval Normal >/= 90 mL/min/1.73m2 Mildly decreased* 60 - 89 mL/min/1.73m2 Mildly to moderately decreased 45 - 59 mL/min/1.73m2 Moderately to severely decreased 30 - 44 mL/min/1.73m2 Severely decreased 15 - 29 mL/min/1.73m2 Kidney Failure < 15 mL/min/1.73m2 *Relative to young adult level Estimated glomerular filtration rate is determined by the 2020 CKD-EPI equation recommended by the National Kidney Foundation (A Unifying Approach to GFR Estimation: Recommendations of the NKF-ASK Task Force on Reassessing the Inclusion of Race in Diagnosing Kidney Disease, JASN 202). The CKD-EPI equation should not be used for patients with unstable renal function and has not been validated in children and those over 70. Current interpretive data was last reviewed 2021. Blood 01/11/2025 3:52 PM CDT 01/11/2025 5:16 PM CDT us Sukhdev Fritz MD LAB BLOOD ORDERABL ES Final Result [facility] Department [place] [address] * (ABNORMAL) Differential, auto (01/11/2025 3:52 PM CDT) Neutrophil abs 5.49 1.50 - 6.50 K/cumm Imm gran abs 0.04 0.00 - 0.10 K/cumm [facility] Lymphocyte abs 1.01 0.80 - 3.30 K/cumm [facility] Monocyte abs 0.91(H) 0.20 - 0.80 K/cumm [facility] Eosinophil abs 0.16 0.00 - 0.50 K/cumm [facility] Basophil abs 0.02 0.00 - 0.10 K/cumm [facility] Neutrophil pct 72.0 % [facility] Comment: Interpretive Data Percent cell count reference ranges are not reported, since discordance with absolute values may lead to misinterpretation of CBC data. Current Interpretive Data was last revised on 2017. Imm gran pct 0.5 % [facility] Comment: Interpretive Data Percent cell count reference ranges are not reported, since discordance with absolute values may lead to misinterpretation of CBC data. Current Interpretive Data was last revised on 2017. Lymphocyte pct 13.2 % [facility] Comment: Interpretive Data Percent cell count reference ranges are not reported, since discordance with absolute values may lead to misinterpretation of CBC data. Current Interpretive Data was last revised on 2017. Monocyte pct 11.9 % [facility] Comment: Interpretive Data Percent cell count reference ranges are not reported, since discordance with absolute values may lead to misinterpretation of CBC data. Current Interpretive Data was last revised on 2017. Eosinophil pct 2.1 % [facility] Comment: Interpretive Data Percent cell count reference ranges are not reported, since discordance with absolute values may lead to misinterpretation of CBC data. Current Interpretive Data was last revised on 2017. Basophil pct 0.3 % [facility] Comment: Interpretive Data Percent cell count reference ranges are not reported, since discordance with absolute values may lead to misinterpretation of CBC data. Current Interpretive Data was last revised on 2017. Blood 01/11/2025 3:52 PM CDT 01/11/2025 5:16 PM CDT Sukhdev Fritz MD LAB BLOOD ORDERABL ES Final Result Performing Organization Address [facility] Co de Phone Number [facility] Department [place] [employer] [place] [address] * (ABNORMAL) CBC with auto differential (01/11/2025 3:52 PM CDT) WBC 7.63 3.80 - 9.90 K/cumm Hgb 9.4(L) 11.9 - 15.5 g/dL [facility] Hct 27.8(L) 35.6 - 45.5 % [facility] Plt 288 150 - 400 K/cumm [facility] MPV 9.4 9.1 - 12.3 fL [facility] RBC 2.91(L) 3.90 - 5.20 M/cumm [facility] MCV 95.5 81.3 - 96.4 fL [facility] MCH 32.3 27.1 - 33.3 pg [facility] MCHC 33.8 32.3 - 35.7 g/dL [facility] RDW CV 13.2 11.1 - 14.9 % [facility] RDW SD 45.3 35.7 - 48.1 fL [facility] NRBC abs 0.00 0.00 - 0.01 K/cumm [facility] Blood 01/11/2025 3:52 PM CDT 01/11/2025 5:16 PM CDT Sukhdev Fritz MD LAB BLOOD ORDERABL ES Final Result Performing Organization Address [facility] Co de Phone Number [facility] Department [place] [address] * (ABNORMAL) Basic metabolic panel (01/11/2025 3:52 PM CDT) Sodium 134(L) 135 - 145 mmol/L Potassium, pl 3.5 3.3 - 4.9 mmol/L [facility] Chloride 96(L) 97 - 110 mmol/L [facility] CO2 28 22 - 32 mmol/L [facility] Anion gap 10 2 - 15 mmol/L [facility] BUN 6 6 - 25 mg/dL [facility] Creatinine 0.92 0.60 - 1.10 mg/dL [facility] Glucose 98 70 - 199 mg/dL [facility] Comment: Interpretive Data Fasting glucose >/= 126 mg/dl is diagnostic for diabetes. Fasting is defined as no caloric intake for at least 8 hours. Fasting glucose between 100 mg/dl to 125 mg/dl is diagnostic of prediabetes. In a patient with classic symptoms of hyperglycemia or hyperglycemic crisis, a random glucose >/= 200 mg/dl is diagnostic for diabetes. In the absence of unequivocal hyperglycemia, results should be confirmed by repeat testing. The classification and Diagnosis of Diabetes Diabetes Care 2021; 46: S19-S40. Current interpretive data was last revised 2022. Calcium 8.0(L) 8.5 - 10.3 mg/dL [facility] Blood 01/11/2025 3:52 PM CDT 01/11/2025 5:16 PM CDT us Sukhdev Fritz MD LAB BLOOD ORDERABL ES Final Result [facility] One [facility] Department [place] [address] * POCT glucose (01/11/2025 3:30 PM CDT) Glucose, POC 125 70 - 199 mg/dL Blood 01/11/2025 3:30 PM CDT 01/11/2025 3:30 PM CDT us Sukhdev Fritz MD LAB POCT ORDERABLE S - DEVICE Final Result Performing Organization Address [facility] Co de Phone Number [facility] Department [place] [address] * eGFR (01/10/2025 8:35 PM CDT) eGFR 66 >=60 mL/min/1. 73 m2 Comment: Interpretive Data Reference Interval Normal >/= 90 mL/min/1.73m2 Mildly decreased* 60 - 89 mL/min/1.73m2 Mildly to moderately decreased 45 - 59 mL/min/1.73m2 Moderately to severely decreased 30 - 44 mL/min/1.73m2 Severely decreased 15 - 29 mL/min/1.73m2 Kidney Failure < 15 mL/min/1.73m2 *Relative to young adult level Estimated glomerular filtration rate is determined by the 2020 CKD-EPI equation recommended by the National Kidney Foundation (A Unifying Approach to GFR Estimation: Recommendations of the NKF-ASK Task Force on Reassessing the Inclusion of Race in Diagnosing Kidney Disease, JASN 2020). The CKD-EPI equation should not be used for patients with unstable renal function and has not been validated in children and those over 70. Current interpretive data was last reviewed 2021. Blood 01/10/2025 8:35 PM CDT 01/10/2025 8:56 PM CDT us Phi Armstrong MD LAB BLOOD ORDERABLES Fi nal Result Performing Organization Address City/[facility] Co de Phone Number [facility] Department [place] [address] * (ABNORMAL) Differential, auto (01/10/2025 8:35 PM CDT) Neutrophil abs 6.93(H) 1.50 - 6.50 K/cumm Imm gran abs 0.07 0.00 - 0.10 K/cumm [facility] Lymphocyte abs 1.09 0.80 - 3.30 K/cumm [facility] Monocyte abs 1.18(H) 0.20 - 0.80 K/cumm [facility] Eosinophil abs 0.28 0.00 - 0.50 K/cumm [facility] Basophil abs 0.03 0.00 - 0.10 K/cumm [facility] Neutrophil pct 72.4 % [facility] Comment: Interpretive Data Percent cell count reference ranges are not reported, since discordance with absolute values may lead to misinterpretation of CBC data. Current Interpretive Data was last revised on 2017. Imm gran pct 0.7 % [facility] Comment: Interpretive Data Percent cell count reference ranges are not reported, since discordance with absolute values may lead to misinterpretation of CBC data. Current Interpretive Data was last revised on 2017. Lymphocyte pct 11.4 % [facility] Comment: Interpretive Data Percent cell count reference ranges are not reported, since discordance with absolute values may lead to misinterpretation of CBC data. Current Interpretive Data was last revised on 2017. Monocyte pct 12.3 % [facility] Comment: Interpretive Data Percent cell count reference ranges are not reported, since discordance with absolute values may lead to misinterpretation of CBC data. Current Interpretive Data was last revised on 2017. Eosinophil pct 2.9 % [facility] Comment: Interpretive Data Percent cell count reference ranges are not reported, since discordance with absolute values may lead to misinterpretation of CBC data. Current Interpretive Data was last revised on 2017. Basophil pct 0.3 % [facility] Comment: Interpretive Data Percent cell count reference ranges are not reported, since discordance with absolute values may lead to misinterpretation of CBC data. Current Interpretive Data was last revised on 2017. Blood 01/10/2025 8:35 PM CDT 01/10/2025 8:56 PM CDT us Phi Armstrong MD LAB BLOOD ORDERABLES Fi nal Result [facility] One [facility] Department [place] [address] * (ABNORMAL) CBC with auto differential (01/10/2025 8:35 PM CDT) Pathologist [facility] [place] WBC 9.58 3.80 - 9.90 K/cumm Hgb 9.7(L) 11.9 - 15.5 g/dL [facility] Hct 28.5(L) 35.6 - 45.5 % [facility] Plt 301 150 - 400 K/cumm [facility] MPV 9.3 9.1 - 12.3 fL [facility] RBC 2.99(L) 3.90 - 5.20 M/cumm [facility] MCV 95.3 81.3 - 96.4 fL [facility] MCH 32.4 27.1 - 33.3 pg [facility] MCHC 34.0 32.3 - 35.7 g/dL [facility] RDW CV 13.2 11.1 - 14.9 % [facility] RDW SD 45.1 35.7 - 48.1 fL [facility] NRBC abs 0.00 0.00 - 0.01 K/cumm [facility] Blood 01/10/2025 8:35 PM CDT 01/10/2025 8:56 PM CDT us Phi Armstrong MD LAB BLOOD ORDERABLES Fi nal Result [facility] Department [place] [employer] [place] [address] * Phosphorus (01/10/2025 8:35 PM CDT) [facility] Phosphorus, pl 2.7 2.3 - 4.5 mg/dL Blood 01/10/2025 8:35 PM CDT 01/10/2025 8:56 PM CDT us Sukhdev Fritz MD LAB BLOOD ORDERABL ES Final Result [facility] [place] [employer] [place] [address] * Magnesium (01/10/2025 8:35 PM CDT) Pathologist [facility] [place] Magnesium 2.0 1.4 - 2.5 mg/dL Blood 01/10/2025 8:35 PM CDT 01/10/2025 8:56 PM CDT Sukhdev Fritz MD LAB BLOOD ORDERABL ES Final Result [facility] One [facility] Department [place] [address] * (ABNORMAL) Comprehensive metabolic panel (01/10/2025 8:35 PM CDT) Pathologist [facility] [place] Sodium 131(L) 135 - 145 mmol/L Potassium, pl 4.3 3.3 - 4.9 mmol/L [facility] Comment:Hemolyzed; Potassium value may be falsely elevated by as much as 0.3-0.5 mmol/L. Suggest redraw and reanalysis. Chloride 96(L) 97 - 110 mmol/L [facility] CO2 24 22 - 32 mmol/L [facility] Anion gap 11 2 - 15 mmol/L [facility] BUN 8 6 - 25 mg/dL [facility] Creatinine 0.89 0.60 - 1.10 mg/dL [facility] Glucose 105 70 - 199 mg/dL [facility] Comment: Interpretive Data Fasting glucose >/= 126 mg/dl is diagnostic for diabetes. Fasting is defined as no caloric intake for at least 8 hours. Fasting glucose between 100 mg/dl to 125 mg/dl is diagnostic of prediabetes. In a patient with classic symptoms of hyperglycemia or hyperglycemic crisis, a random glucose >/= 200 mg/dl is diagnostic for diabetes. In the absence of unequivocal hyperglycemia, results should be confirmed by repeat testing. The classification and Diagnosis of Diabetes Diabetes Care 202; 46: S19-S40. Current interpretive data was last revised 2022. Calcium 8.3(L) 8.5 - 10.3 mg/dL [facility] Bilirubin, total 0.3 0.1 - 1.2 mg/dL [facility] Protein, pl 6.0(L) 6.5 - 8.5 g/dL [facility] Albumin 2.8(L) 3.5 - 5.0 g/dL [facility] Alk phos 86 40 - 130 Units/L [facility] ALT 22 7 - 45 Units/L [facility] AST 33 10 - 45 Units/L [facility] Comment:Hemolyzed; result ma y be falsely elevated Blood 01/10/2025 8:35 PM CDT 01/10/2025 8:56 PM CDT us Phi Armstrong MD LAB BLOOD ORDERABLES Fi nal Result [facility] One [facility] Department [place] [address] * XR Orthopantogram Panorex (01/10/2025 1:36 PM CDT) Anatomical Region Laterality Modality Head and Neck N/A Panoramic X-Ray 01/10/2025 2:48 PM CDT Impressions 01/10/2025 2:58 PM CDT No large dental caries or periapical lucencies. Dictated by: Monico Simpson MD The radiology attending physician has personally reviewed this study, and had reviewed and/or edited this written report and agrees with it. Electronically signed by: Stevan Wallis M.D. Narrative 01/10/2025 2:58 PM CDT EXAMINATION: XR ORTHOPANTOGRAM/PANOREX HISTORY: Endocarditis COMPARISON: CT 01/02/2025 FINDINGS: There are multiple dental restorations. There are several tooth extractions. There are no large dental caries or periapical lucencies Procedure Note Stevan Wallis MD PhD - 01/10/2025 EXAMINATION: XR ORTHOPANTOGRAM/PANOREX HISTORY: Endocarditis COMPARISON: CT 01/02/2025 FINDINGS: There are multiple dental restorations. There are several tooth extractions. There are no large dental caries or periapical lucencies IMPRESSION: No large dental caries or periapical lucencies. Dictated by: Monico Simpson MD The radiology attending physician has personally reviewed this study, and had reviewed and/or edited this written report and agrees with it. Electronically signed by: Stevan Wallis M.D. us Sukhdev Fritz MD IMG XR PROCEDURES Final Result * SENIOR QUALITY TECHNICIAN Evaluate and Treat Clinical Swallow (01/10/2025 11:17 AM CDT) Narrative Tatyana Pearl SLP - 01/10/2025 11:17 AM CDT Tatyana Pearl SLP 01/10/2025 12:23 PM Speech-Language Pathology: Clinical Bedside Swallow [facility] Ms. Zaldivar is a 79 y.o. 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 Respiratory/Intubation Status:Room Air Imaging: CXR 01/07: The heart and mediastinal contours are normal. There is no mass or consolidation. There are no pleural effusions. There is no pneumothorax. BMRI 01/08: 1. 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 The previously seen punctate infarct also visualized. These are likely to represent embolic source. 2. Right frontal approach ventriculostomy catheter with interval mild worsening of the dilatation of lateral and third ventricle. 3. Pachymeningeal enhancement. 4. Subdural enhancing collection at C1-C2 level likely representing subdural empyema. However the images are degraded by motion and not well evaluated. These findings were present on the prior scan and have not significantly changed. BMRI 01/01: 1. Multiple punctate acute infarcts of the right internal capsule, right centrum semiovale bowel, left parietal white matter, and left cerebellar hemisphere involving multiple vascular territories, raising suspicion for an embolic source. 3. Disruption of the ligamentum flavum at C2. Prevertebral upper cervical soft tissue edema with entry of the anterior longitudinal ligament at C2 and of the atlantooccipital membrane. 4. Diffuse pachymeningeal thickening of the brain and cervical spine with cervical spine subdural hemorrhage extending from C2 to C3-C4 resulting in severe canal stenosis which is secondary to a combination of spondylosis and the subdural hemorrhage. The cervical spine subdural hemorrhage is likely due to traumatic injury in the setting of intracranial hypotension in the setting of shunting. 4. Questionable edema throughout the C2 vertebral body/dens with no definite correlate on CT dated 12/27/2024, which may represent a microtrabecular fracture or degenerative erosive changes. If there has been a fall/trauma in the interim since prior CT, repeat CT of the cervical spine could be considered to evaluate for suspected C2 fracture. 5. Small bilateral pleural effusions. Precautions: Fall PLOF:CSE OSH 12/30: Recommended a regular diet. Current Diet Order:Regular Baseline Diet: Regular General Information Venkatesh Zaldivar 01/10/25 General Observations: Pt seen on 5400 floor with dtr present. Pleasant, alert, able to follow simple commands. Pain Score: 0 - No pain If pain >4, was RN notified? None Observed Patient Stated Goal/Comments: Reports n/v with pills, which she attributes to recent anaesthesia Clinical Impression & Professional Recommendations Diet Solids Recommendation: Regular Diet Liquids Recommendations: Thin/regular Recommended Form of Medications: As tolerated Postural Recommendations: Upright Specialty Instructions: daily oral care Dysphagia Diagnosis: No suspected dysphagia, oral-pharyngeal function appears WFL Overall Clinical Impression/Additional Information: Oral mechanism exam is normal. Self fed thin liquids (sequential drinks by large bore straw) and regular solids. Occasional brief oral holding with liquids. With initial bite of solids, excessive mastication of fully chewed bolus cleared with a liquid wash. Mastication and oral transit of joan crackers overall timely. Good oral clearance across trials. No overt s/s of aspiration. Oral and pharyngeal swallow appear functional to support a regular diet. No further ST intervention planned for swallowing. Assessment Details & Results Consistencies Administered: Thin liquids, Solids MASA: Kraus Assessment of Swallowing Ability (MASA) Alertness: Alert Cooperation: Cooperative Auditory Comprehension: No abnormality detected Respiration: Chest clear Respiratory Rate (for swallow): Able to control breath rate for swallow Aphasia: No abnormality detected Apraxia: No abnormality detected Dysarthria: No abnormality detected Saliva: No abnormality detected Lip Seal: No abnormality detected Tongue Movement: Full range of motion Tongue Strength: No abnormality detected Tongue Coordination: No abnormality detected Gag: No gag (did not test) Palate: No abnormality detected Cough Reflex: Unable to assess Voluntary Cough: No abnormality detected Voice: No abnormality detected Trach: No trach Oral Preparation: No deficits noted Bolus Clearance: Fully cleared Oral Transit: No deficits noted Pharyngeal Phase: Immediate laryngeal elevation Pharyngeal Response: No deficits noted MASA Score: 192 Dysphagia: No dysphagia detected (178-200) Aspiration Risk: No aspiration risk (170-200) Plan SENIOR QUALITY TECHNICIAN Frequency of Services during current admission: Other (comment) (No further ST for swallowing ; will follow to complete SMART cognitive evaluation) SENIOR QUALITY TECHNICIAN Recommendation (Add'l Services): (No further ST for swallowing) Further Assessment/Follow up Indicated: Recommendations: Other (Comment) Next Visit Plan:No further ST for swallowing -- will follow to complete SMART cognitive evaluation Additional Referrals: none Please reference care plan for treatment goals, if indicated. Discharge Summary Statement If this is the last swallow therapy visit, this serves as the discharge summary. Phi Amrstrong MD SENIOR QUALITY TECHNICIAN ORDERABLES Final R esult * eGFR (01/10/2025 5:28 AM CDT) eGFR 61 >=60 mL/min/1. 73 m2 Comment: Interpretive Data Reference Interval Normal >/= 90 mL/min/1.73m2 Mildly decreased* 60 - 89 mL/min/1.73m2 Mildly to moderately decreased 45 - 59 mL/min/1.73m2 Moderately to severely decreased 30 - 44 mL/min/1.73m2 Severely decreased 15 - 29 mL/min/1.73m2 Kidney Failure < 15 mL/min/1.73m2 *Relative to young adult level Estimated glomerular filtration rate is determined by the 2020 CKD-EPI equation recommended by the National Kidney Foundation (A Unifying Approach to GFR Estimation: Recommendations of the NKF-ASK Task Force on Reassessing the Inclusion of Race in Diagnosing Kidney Disease, JASN 2020). The CKD-EPI equation should not be used for patients with unstable renal function and has not been validated in children and those over 70. Current interpretive data was last reviewed 2021. Blood 01/10/2025 5:28 AM CDT 01/10/2025 5:40 AM CDT Phi Armstrong MD LAB BLOOD ORDERABLES Fi nal Result Performing Organization Address City/[facility] Co de Phone Number [facility] [place] [address] * (ABNORMAL) Phosphorus (01/10/2025 5:28 AM CDT) [facility] Phosphorus, pl 1.6(L) 2.3 - 4.5 mg/dL Blood 01/10/2025 5:28 AM CDT 01/10/2025 5:40 AM CDT Sukhdev Fritz MD LAB BLOOD ORDERABL ES Final Result Performing Organization Address [facility] de Phone Number [facility] [place] [address] * Magnesium (01/10/2025 5:28 AM CDT) [facility] Magnesium 1.4 1.4 - 2.5 mg/dL Blood 01/10/2025 5:28 AM CDT 01/10/2025 5:40 AM CDT Sukhdev Fritz MD LAB BLOOD ORDERABL ES Final Result Performing Organization Address [facility] de Phone Number [facility] [place] [address] * (ABNORMAL) Basic metabolic panel (01/10/2025 5:28 AM CDT) [facility] Sodium 132(L) 135 - 145 mmol/L Potassium, pl 3.3 3.3 - 4.9 mmol/L [facility] Chloride 100 97 - 110 mmol/L [facility] CO2 26 22 - 32 mmol/L [facility] Anion gap 6 2 - 15 mmol/L [facility] BUN 10 6 - 25 mg/dL [facility] Creatinine 0.96 0.60 - 1.10 mg/dL [facility] Glucose 101 70 - 199 mg/dL [facility] Comment: Interpretive Data Fasting glucose >/= 126 mg/dl is diagnostic for diabetes. Fasting is defined as no caloric intake for at least 8 hours. Fasting glucose between 100 mg/dl to 125 mg/dl is diagnostic of prediabetes. In a patient with classic symptoms of hyperglycemia or hyperglycemic crisis, a random glucose >/= 200 mg/dl is diagnostic for diabetes. In the absence of unequivocal hyperglycemia, results should be confirmed by repeat testing. The classification and Diagnosis of Diabetes Diabetes Care 202; 46: S19-S40. Current interpretive data was last revised 2022. Calcium 8.1(L) 8.5 - 10.3 mg/dL [facility] Blood 01/10/2025 5:28 AM CDT 01/10/2025 5:40 AM CDT us Phi Armstrong MD LAB BLOOD ORDERABLES Fi nal Result [facility] Department [place] [address] * (ABNORMAL) eGFR (01/09/2025 10:04 PM CDT) eGFR 58(L) >=60 mL/min/1. 73 m2 Comment: Interpretive Data Reference Interval Normal >/= 90 mL/min/1.73m2 Mildly decreased* 60 - 89 mL/min/1.73m2 Mildly to moderately decreased 45 - 59 mL/min/1.73m2 Moderately to severely decreased 30 - 44 mL/min/1.73m2 Severely decreased 15 - 29 mL/min/1.73m2 Kidney Failure < 15 mL/min/1.73m2 *Relative to young adult level Estimated glomerular filtration rate is determined by the 2020 CKD-EPI equation recommended by the National Kidney Foundation (A Unifying Approach to GFR Estimation: Recommendations of the NKF-ASK Task Force on Reassessing the Inclusion of Race in Diagnosing Kidney Disease, JASN 2020). The CKD-EPI equation should not be used for patients with unstable renal function and has not been validated in children and those over 70. Current interpretive data was last reviewed 2021. Blood 01/09/2025 10:0 4 PM CDT 01/09/2025 10:46 PM CDT us Phi Armstrong MD LAB BLOOD ORDERABLES Fi nal Result [facility] One [facility] Department [place] [address] * (ABNORMAL) Differential, auto (01/09/2025 10:04 PM CDT) Neutrophil abs 7.34(H) 1.50 - 6.50 K/cumm Imm gran abs 0.08 0.00 - 0.10 K/cumm [facility] Lymphocyte abs 0.98 0.80 - 3.30 K/cumm [facility] Monocyte abs 1.40(H) 0.20 - 0.80 K/cumm [facility] Eosinophil abs 0.11 0.00 - 0.50 K/cumm [facility] Basophil abs 0.03 0.00 - 0.10 K/cumm [facility] Neutrophil pct 73.8 % [facility] Comment: Interpretive Data Percent cell count reference ranges are not reported, since discordance with absolute values may lead to misinterpretation of CBC data. Current Interpretive Data was last revised on 2017. Imm gran pct 0.8 % [facility] Comment: Interpretive Data Percent cell count reference ranges are not reported, since discordance with absolute values may lead to misinterpretation of CBC data. Current Interpretive Data was last revised on 2017. Lymphocyte pct 9.9 % [facility] Comment: Interpretive Data Percent cell count reference ranges are not reported, since discordance with absolute values may lead to misinterpretation of CBC data. Current Interpretive Data was last revised on 2017. Monocyte pct 14.1 % [facility] Comment: Interpretive Data Percent cell count reference ranges are not reported, since discordance with absolute values may lead to misinterpretation of CBC data. Current Interpretive Data was last revised on 2017. Eosinophil pct 1.1 % [facility] Comment: Interpretive Data Percent cell count reference ranges are not reported, since discordance with absolute values may lead to misinterpretation of CBC data. Current Interpretive Data was last revised on 2017. Basophil pct 0.3 % [facility] Comment: Interpretive Data Percent cell count reference ranges are not reported, since discordance with absolute values may lead to misinterpretation of CBC data. Current Interpretive Data was last revised on 2017. Blood 01/09/2025 10:0 4 PM CDT 01/09/2025 10:47 PM CDT us Phi Armstrong MD LAB BLOOD ORDERABLES Fi nal Result [facility] Department [place] [address] * (ABNORMAL) CBC with auto differential (01/09/2025 10:04 PM CDT) WBC 9.94(H) 3.80 - 9.90 K/cumm Hgb 9.5(L) 11.9 - 15.5 g/dL [facility] Hct 27.3(L) 35.6 - 45.5 % [facility] Plt 332 150 - 400 K/cumm [facility] MPV 9.1 9.1 - 12.3 fL [facility] RBC 2.92(L) 3.90 - 5.20 M/cumm [facility] MCV 93.5 81.3 - 96.4 fL [facility] MCH 32.5 27.1 - 33.3 pg [facility] MCHC 34.8 32.3 - 35.7 g/dL [facility] RDW CV 13.3 11.1 - 14.9 % [facility] RDW SD 45.0 35.7 - 48.1 fL [facility] NRBC abs 0.00 0.00 - 0.01 K/cumm [facility] Blood 01/09/2025 10:0 4 PM CDT 01/09/2025 10:47 PM CDT Phi Armstrong MD LAB BLOOD ORDERABLES Fi nal Result [facility] Department [place] [address] * (ABNORMAL) Comprehensive metabolic panel (01/09/2025 10:04 PM CDT) Sodium 132(L) 135 - 145 mmol/L Potassium, pl 3.4 3.3 - 4.9 mmol/L [facility] Chloride 99 97 - 110 mmol/L [facility] CO2 26 22 - 32 mmol/L [facility] Anion gap 7 2 - 15 mmol/L [facility] BUN 11 6 - 25 mg/dL [facility] Creatinine 1.00 0.60 - 1.10 mg/dL [facility] Glucose 146 70 - 199 mg/dL [facility] Comment: Interpretive Data Fasting glucose >/= 126 mg/dl is diagnostic for diabetes. Fasting is defined as no caloric intake for at least 8 hours. Fasting glucose between 100 mg/dl to 125 mg/dl is diagnostic of prediabetes. In a patient with classic symptoms of hyperglycemia or hyperglycemic crisis, a random glucose >/= 200 mg/dl is diagnostic for diabetes. In the absence of unequivocal hyperglycemia, results should be confirmed by repeat testing. The classification and Diagnosis of Diabetes Diabetes Care 2021; 46: S19-S40. Current interpretive data was last revised 2022. Calcium 8.2(L) 8.5 - 10.3 mg/dL [facility] Bilirubin, total 0.3 0.1 - 1.2 mg/dL [facility] Protein, pl 5.6(L) 6.5 - 8.5 g/dL [facility] Albumin 2.6(L) 3.5 - 5.0 g/dL [facility] Alk phos 78 40 - 130 Units/L [facility] ALT 19 7 - 45 Units/L [facility] Comment:Reviewed AST 21 10 - 45 Units/L [facility] Comment:Reviewed Blood 01/09/2025 10:0 4 PM CDT 01/09/2025 10:46 PM CDT us Phi Armstrong MD LAB BLOOD ORDERABLES Fi nal Result Performing Organization Address [facility] Co de Phone Number [facility] Department [place] [address] * Miscellaneous microbiology test Miscellaneous Blood (01/09/2025 9:18 AM CDT) Report Final Report: For additional result information, see attached scanned report. Miscellaneous (Blood) 01/09/2025 9:18 AM CDT 01/09/2025 11:01 AM CDT Narrative [facility] - 01/18/2025 11:13 AM CDT Test: Karius Blood Test to [place] Source: Plasma [facility] ([phone]) Phi Armstrong MD LAB MICROBIOLOGY - GENE RAL ORDERABLES Final Result Performing Organization Address [facility] Co de Phone Number [facility] Department [place] [address] * Vancomycin level random (01/09/2025 8:28 AM CDT) Pathologist [facility] [place] Vancomycin random 9.8 mcg/mL Comment: Interpretive Data No reference ranges have been established for random drug levels. Current Interpretive Data was last revised on 2020. Blood 01/09/2025 8:28 AM CDT 01/09/2025 9:19 AM CDT Phi Armstrong MD LAB BLOOD ORDERABLES Fi nal Result Performing Organization Address [facility] Co de Phone Number [facility] [place] [address] * (ABNORMAL) Potassium, whole blood (01/09/2025 6:41 AM CDT) Pathologist [facility] [place] Potassium, bld 2.7(L) 3.3 - 4.9 mmol/L Blood 01/09/2025 6:41 AM CDT 01/09/2025 6:49 AM CDT Phi Armstrong MD LAB BLOOD ORDERABLES Fi nal Result Performing Organization Address [facility] Co de Phone Number [facility] Department [place] [employer] [place] [address] * (ABNORMAL) eGFR (01/09/2025 5:26 AM CDT) eGFR 54(L) >=60 mL/min/1. 73 m2 Comment: Interpretive Data Reference Interval Normal >/= 90 mL/min/1.73m2 Mildly decreased* 60 - 89 mL/min/1.73m2 Mildly to moderately decreased 45 - 59 mL/min/1.73m2 Moderately to severely decreased 30 - 44 mL/min/1.73m2 Severely decreased 15 - 29 mL/min/1.73m2 Kidney Failure < 15 mL/min/1.73m2 *Relative to young adult level Estimated glomerular filtration rate is determined by the 2020 CKD-EPI equation recommended by the National Kidney Foundation (A Unifying Approach to GFR Estimation: Recommendations of the NKF-ASK Task Force on Reassessing the Inclusion of Race in Diagnosing Kidney Disease, JASN 2020). The CKD-EPI equation should not be used for patients with unstable renal function and has not been validated in children and those over 70. Current interpretive data was last reviewed 2021. Blood 01/09/2025 5:26 AM CDT 01/09/2025 5:39 AM CDT us Phi Armstrong MD LAB BLOOD ORDERABLES Fi nal Result Performing Organization Address City/[facility]/ZIP Co de Phone Number [facility] [place] [address] * (ABNORMAL) Basic metabolic panel (01/09/2025 5:26 AM CDT) Sodium 135 135 - 145 mmol/L Potassium, pl 2.7(L) 3.3 - 4.9 mmol/L [facility] Comment:Repeated and Verifie d Chloride 97 97 - 110 mmol/L [facility] CO2 26 22 - 32 mmol/L [facility] Anion gap 12 2 - 15 mmol/L [facility] BUN 12 6 - 25 mg/dL [facility] Creatinine 1.06 0.60 - 1.10 mg/dL [facility] Glucose 96 70 - 199 mg/dL [facility] Comment: Interpretive Data Fasting glucose >/= 126 mg/dl is diagnostic for diabetes. Fasting is defined as no caloric intake for at least 8 hours. Fasting glucose between 100 mg/dl to 125 mg/dl is diagnostic of prediabetes. In a patient with classic symptoms of hyperglycemia or hyperglycemic crisis, a random glucose >/= 200 mg/dl is diagnostic for diabetes. In the absence of unequivocal hyperglycemia, results should be confirmed by repeat testing. The classification and Diagnosis of Diabetes Diabetes Care 2021; 46: S19-S40. Current interpretive data was last revised 2022. Calcium 8.1(L) 8.5 - 10.3 mg/dL [facility] Blood 01/09/2025 5:26 AM CDT 01/09/2025 5:39 AM CDT us Phi Armstrong MD LAB BLOOD ORDERABLES Fi nal Result [facility] One [facility] Department [place] [address] * MRI Brain W WO Contrast (01/08/2025 11:38 PM CDT) Anatomical Region Laterality Modality Head and Neck N/A Magnetic Resonan ce 01/09/2025 8:39 AM CDT Impressions 01/09/2025 3:51 PM CDT 1. 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 The previously seen punctate infarct also visualized. These are likely to represent embolic source. 2. Right frontal approach ventriculostomy catheter with interval mild worsening of the dilatation of lateral and third ventricle. 3. Pachymeningeal enhancement. 4. Subdural enhancing collection at C1-C2 level likely representing subdural empyema. However the images are degraded by motion and not well evaluated. These findings were present on the prior scan and have not significantly changed. The Non Critical results were discussed with Dr. Auguste by Dr. Radha Henry on 01/09/2025 at 8:35 AM. Via secure epic chart. Dictated by: Radha Henry M.D. The radiology attending physician has personally reviewed this study, and had reviewed and/or edited this written report and agrees with it. Electronically signed by: Rosmery Boss M.D., Ph.D. Narrative 01/09/2025 3:51 PM CDT EXAMINATION: Magnetic resonance imaging (MRI) of the brain and brainstem without and with contrast HISTORY: 79 y.o. female with history of NPH s/p shunt (2021), RA on methotrexate and plaquenil, chronic hyponatremia, presenting for acute AMS and intermittent upper extremity weakness, multifocal spinal osteomyelitis. TECHNIQUE: Multiplanar multi-weighted MRI of the brain and brainstem was performed without and with intravenous contrast using the general brain protocol. Contrast information: 15 mL Gadoterate Meglumine IV COMPARISON: MRI brain 01/01/2025 FINDINGS: Suboptimal scan quality due to motion artifact. Foci of diffusion restriction in the left cerebellum, right medial thalamus and right superior frontal lobe are new when compared with the prior scan. The previously seen punctate infarcts are also visualized. The right frontal approach ventriculostomy catheter with its tip in the anterior horn of right lateral ventricle. There is prominence of lateral and third ventricle which is slightly increased when compared with the recent prior scan for example the anterior horn of the left lateral ventricle measures 13 mm, previously measured 9 mm. No evidence of ependymal seepage. There are scattered T2/FLAIR hyperintensities in periventricular white matter consistent with chronic microvascular ischemic changes. There is diffuse pachymeningeal enhancement. Chronic microhemorrhages in mike, left temporal lobe, right occipital lobe. Enhancing subdural soft tissue along the posterior aspect of the upper cervical spine at C1-C2 level. The superior sagittal sinus demonstrates normal venous flow. The corpus callosum is normal in shape and signal intensity. The posterior fossa is unremarkable. The pituitary and sella are normal. The brainstem and craniocervical junction are unremarkable. Scattered paranasal mucosal thickening. Partial opacification of bilateral mastoid air cells. Bilateral lens replacement. Normal flow voids are demonstrated in the carotid arteries and basilar artery. Procedure Note Rosmery Boss MD PhD - 01/09/2025 EXAMINATION: Magnetic resonance imaging (MRI) of the brain and brainstem without and with contrast HISTORY: 79 y.o. female with history of NPH s/p shunt (2021), RA on methotrexate and plaquenil, chronic hyponatremia, presenting for acute AMS and intermittent upper extremity weakness, multifocal spinal osteomyelitis. TECHNIQUE: Multiplanar multi-weighted MRI of the brain and brainstem was performed without and with intravenous contrast using the general brain protocol. Contrast information: 15 mL Gadoterate Meglumine IV COMPARISON: MRI brain 01/01/2025 FINDINGS: Suboptimal scan quality due to motion artifact. Foci of diffusion restriction in the left cerebellum, right medial thalamus and right superior frontal lobe are new when compared with the prior scan. The previously seen punctate infarcts are also visualized. The right frontal approach ventriculostomy catheter with its tip in the anterior horn of right lateral ventricle. There is prominence of lateral and third ventricle which is slightly increased when compared with the recent prior scan for example the anterior horn of the left lateral ventricle measures 13 mm, previously measured 9 mm. No evidence of ependymal seepage. There are scattered T2/FLAIR hyperintensities in periventricular white matter consistent with chronic microvascular ischemic changes. There is diffuse pachymeningeal enhancement. Chronic microhemorrhages in mike, left temporal lobe, right occipital lobe. Enhancing subdural soft tissue along the posterior aspect of the upper cervical spine at C1-C2 level. The superior sagittal sinus demonstrates normal venous flow. The corpus callosum is normal in shape and signal intensity. The posterior fossa is unremarkable. The pituitary and sella are normal. The brainstem and craniocervical junction are unremarkable. Scattered paranasal mucosal thickening. Partial opacification of bilateral mastoid air cells. Bilateral lens replacement. Normal flow voids are demonstrated in the carotid arteries and basilar artery. IMPRESSION: 1. 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 The previously seen punctate infarct also visualized. These are likely to represent embolic source. 2. Right frontal approach ventriculostomy catheter with interval mild worsening of the dilatation of lateral and third ventricle. 3. Pachymeningeal enhancement. 4. Subdural enhancing collection at C1-C2 level likely representing subdural empyema. However the images are degraded by motion and not well evaluated. These findings were present on the prior scan and have not significantly changed. The Non Critical results were discussed with Dr. Auguste by Dr. Radha Henry on 01/09/2025 at 8:35 AM. Via secure [employer] chart. Dictated by: Radha Henry M.D. The radiology attending physician has personally reviewed this study, and had reviewed and/or edited this written report and agrees with it. Electronically signed by: Rosmery Boss M.D., Ph.D. us Phi Armstrong MD IMG MRI PROCEDURES Sheila l Result * (ABNORMAL) eGFR (01/08/2025 9:00 PM CDT) eGFR 50(L) >=60 mL/min/1. 73 m2 Comment: Interpretive Data Reference Interval Normal >/= 90 mL/min/1.73m2 Mildly decreased* 60 - 89 mL/min/1.73m2 Mildly to moderately decreased 45 - 59 mL/min/1.73m2 Moderately to severely decreased 30 - 44 mL/min/1.73m2 Severely decreased 15 - 29 mL/min/1.73m2 Kidney Failure < 15 mL/min/1.73m2 *Relative to young adult level Estimated glomerular filtration rate is determined by the 2020 CKD-EPI equation recommended by the National Kidney Foundation (A Unifying Approach to GFR Estimation: Recommendations of the NKF-ASK Task Force on Reassessing the Inclusion of Race in Diagnosing Kidney Disease, JASN 2020). The CKD-EPI equation should not be used for patients with unstable renal function and has not been validated in children and those over 70. Current interpretive data was last reviewed 2021. Blood 01/08/2025 9:00 PM CDT 01/09/2025 12:18 AM CDT us Phi Armstrong MD LAB BLOOD ORDERABLES Fi nal Result [facility] Department [place] [address] * (ABNORMAL) Differential, auto (01/08/2025 9:00 PM CDT) Neutrophil abs 8.27(H) 1.50 - 6.50 K/cumm Imm gran abs 0.08 0.00 - 0.10 K/cumm [facility] Lymphocyte abs 0.91 0.80 - 3.30 K/cumm [facility] Monocyte abs 1.26(H) 0.20 - 0.80 K/cumm [facility] Eosinophil abs 0.04 0.00 - 0.50 K/cumm [facility] Basophil abs 0.03 0.00 - 0.10 K/cumm [facility] Neutrophil pct 78.0 % [facility] Comment: Interpretive Data Percent cell count reference ranges are not reported, since discordance with absolute values may lead to misinterpretation of CBC data. Current Interpretive Data was last revised on 2017. Imm gran pct 0.8 % [facility] Comment: Interpretive Data Percent cell count reference ranges are not reported, since discordance with absolute values may lead to misinterpretation of CBC data. Current Interpretive Data was last revised on 2017. Lymphocyte pct 8.6 % [facility] Comment: Interpretive Data Percent cell count reference ranges are not reported, since discordance with absolute values may lead to misinterpretation of CBC data. Current Interpretive Data was last revised on 2017. Monocyte pct 11.9 % [facility] Comment: Interpretive Data Percent cell count reference ranges are not reported, since discordance with absolute values may lead to misinterpretation of CBC data. Current Interpretive Data was last revised on 2017. Eosinophil pct 0.4 % [facility] Comment: Interpretive Data Percent cell count reference ranges are not reported, since discordance with absolute values may lead to misinterpretation of CBC data. Current Interpretive Data was last revised on 2017. Basophil pct 0.3 % [facility] Comment: Interpretive Data Percent cell count reference ranges are not reported, since discordance with absolute values may lead to misinterpretation of CBC data. Current Interpretive Data was last revised on 2017. Blood 01/08/2025 9:00 PM CDT 01/09/2025 12:14 AM CDT Phi Armstrong MD LAB BLOOD ORDERABLES Fi nal Result Performing Organization Address [facility] Co de Phone Number [facility] Department [place] [address] * (ABNORMAL) CBC with auto differential (01/08/2025 9:00 PM CDT) WBC 10.59(H) 3.80 - 9.90 K/cumm Hgb 9.3(L) 11.9 - 15.5 g/dL [facility] Hct 27.0(L) 35.6 - 45.5 % [facility] Plt 384 150 - 400 K/cumm [facility] MPV 9.6 9.1 - 12.3 fL [facility] RBC 2.90(L) 3.90 - 5.20 M/cumm [facility] MCV 93.1 81.3 - 96.4 fL [facility] MCH 32.1 27.1 - 33.3 pg [facility] MCHC 34.4 32.3 - 35.7 g/dL [facility] RDW CV 13.1 11.1 - 14.9 % [facility] RDW SD 44.2 35.7 - 48.1 fL [facility] NRBC abs 0.00 0.00 - 0.01 K/cumm [facility] Blood 01/08/2025 9:00 PM CDT 01/09/2025 12:14 AM CDT Phi Armstrong MD LAB BLOOD ORDERABLES Fi nal Result [facility] Department [place] [address] * (ABNORMAL) Comprehensive metabolic panel (01/08/2025 9:00 PM CDT) Sodium 133(L) 135 - 145 mmol/L Potassium, pl See Comment 3.3 - 4.9 mmol/L [facility] Comment:Credited; Hemolyzed Specimen Chloride 97 97 - 110 mmol/L [facility] CO2 24 22 - 32 mmol/L [facility] Anion gap 12 2 - 15 mmol/L [facility] BUN 14 6 - 25 mg/dL [facility] Creatinine 1.13(H) 0.60 - 1.10 mg/dL [facility] Glucose 89 70 - 199 mg/dL [facility] Comment: Interpretive Data Fasting glucose >/= 126 mg/dl is diagnostic for diabetes. Fasting is defined as no caloric intake for at least 8 hours. Fasting glucose between 100 mg/dl to 125 mg/dl is diagnostic of prediabetes. In a patient with classic symptoms of hyperglycemia or hyperglycemic crisis, a random glucose >/= 200 mg/dl is diagnostic for diabetes. In the absence of unequivocal hyperglycemia, results should be confirmed by repeat testing. The classification and Diagnosis of Diabetes Diabetes Care 202; 46: S19-S40. Current interpretive data was last revised 2022. Calcium 8.4(L) 8.5 - 10.3 mg/dL [facility] Bilirubin, total 0.5 0.1 - 1.2 mg/dL [facility] Protein, pl 6.1(L) 6.5 - 8.5 g/dL [facility] Albumin 2.6(L) 3.5 - 5.0 g/dL [facility] Alk phos 68 40 - 130 Units/L [facility] Comment:Hemolyzed; result ma y be falsely decreased ALT See Comment 7 - 45 Units/L [facility] Comment:Credited; Hemolyzed Specimen AST See Comment 10 - 45 Units/L [facility] Comment:Credited; Hemolyzed Specimen Blood 01/08/2025 9:00 PM CDT 01/09/2025 12:16 AM CDT us Phi Armstrong MD LAB BLOOD ORDERABLES Fi nal Result [facility] One [facility] Department [place] [address] * Histoplasma Antigen Urine (01/08/2025 5:53 AM CDT) Histo Ag Ur result None Detected None Detected Histo Ag Ur interp Negative Negative [facility] Comment: Result Interpretation: Reference interval: None Detected Results reported as ng/mL in 0.20 - 20.00 ng/mL range Results above 20.00 ng/mL are reported as 'Positive, Above the Limit of Quantification' Testing Performed by: [employer], [address] [place] [address] [place] [address]. This test was developed and its performance characteristics determined by [employer]. It has not been cleared or approved by the FDA; however, FDA clearance or approval is not currently required for clinical use. The results are not intended to be used as the sole means for clinical diagnosis or patient management decisions. Interpretative data updated 06/12/2020 Urine 01/08/2025 5:53 AM CDT 01/08/2025 7:56 AM CDT us Phi Armstrong MD LAB MICROBIOLOGY - GENE [facility] ORDERABLES Final Result [facility] Department [place] [address] * (ABNORMAL) eGFR (01/08/2025 5:53 AM CDT) eGFR 38(L) >=60 mL/min/1. 73 m2 Comment: Interpretive Data Reference Interval Normal >/= 90 mL/min/1.73m2 Mildly decreased* 60 - 89 mL/min/1.73m2 Mildly to moderately decreased 45 - 59 mL/min/1.73m2 Moderately to severely decreased 30 - 44 mL/min/1.73m2 Severely decreased 15 - 29 mL/min/1.73m2 Kidney Failure < 15 mL/min/1.73m2 *Relative to young adult level Estimated glomerular filtration rate is determined by the 2020 CKD-EPI equation recommended by the National Kidney Foundation (A Unifying Approach to GFR Estimation: Recommendations of the NKF-ASK Task Force on Reassessing the Inclusion of Race in Diagnosing Kidney Disease, JASN 202). The CKD-EPI equation should not be used for patients with unstable renal function and has not been validated in children and those over 70. Current interpretive data was last reviewed 2021. Blood 01/08/2025 5:53 AM CDT 01/08/2025 6:14 AM CDT Phi Armstrong MD LAB BLOOD ORDERABLES Fi nal Result [facility] Department [place] [address] * (ABNORMAL) Basic metabolic panel (01/08/2025 5:53 AM CDT) Sodium 134(L) 135 - 145 mmol/L Potassium, pl 3.0(L) 3.3 - 4.9 mmol/L [facility] Chloride 97 97 - 110 mmol/L [facility] CO2 25 22 - 32 mmol/L [facility] Anion gap 12 2 - 15 mmol/L [facility] BUN 18 6 - 25 mg/dL [facility] Creatinine 1.41(H) 0.60 - 1.10 mg/dL [facility] Glucose 97 70 - 199 mg/dL [facility] Comment: Interpretive Data Fasting glucose >/= 126 mg/dl is diagnostic for diabetes. Fasting is defined as no caloric intake for at least 8 hours. Fasting glucose between 100 mg/dl to 125 mg/dl is diagnostic of prediabetes. In a patient with classic symptoms of hyperglycemia or hyperglycemic crisis, a random glucose >/= 200 mg/dl is diagnostic for diabetes. In the absence of unequivocal hyperglycemia, results should be confirmed by repeat testing. The classification and Diagnosis of Diabetes Diabetes Care 2022; 46: S19-S40. Current interpretive data was last revised 2022. Calcium 8.8 8.5 - 10.3 mg/dL [facility] Blood 01/08/2025 5:53 AM CDT 01/08/2025 6:14 AM CDT Phi Armstrong MD LAB BLOOD ORDERABLES Fi nal Result Performing Organization Address [facility] Co de Phone Number [facility] [place] [address] * Q fever ab w rflx to immunofluorescence Blood (01/07/2025 6:21 PM CDT) Q fever ab scrn w titer rflx ser Negative Negative [place] ref Lab Comment: No antibodies to Q Fever (Coxiella burnetii) detected. Repeat testing on a new sample collected in 2-3 weeks if acute Q Fever is suspected. ADDITIONAL INFORMATION This test was developed and its performance characteristics determined by [facility] in a manner consistent with CLIA requirements. This test has not been cleared or approved by the U.S. Food and Drug Administration. Test Performed by: [facility] [place] [place] [address] [place] Professor: Jorge Luis Ledezma Ph.D.; CLIA# [id number] Blood 01/07/2025 6:21 PM CDT 01/07/2025 8:54 PM CDT Phi Armstrong MD LAB MICROBIOLOGY - GENE RAL ORDERABLES Final Result Performing Organization Address [facility] Co de Phone Number [facility] Department [place] [address] [facility] Lab * Histoplasma Antibody Blood (01/07/2025 6:21 PM CDT) Histoplasma Ab, yeast CF Negative Negative [facility] Lab Histoplasma Ab, Immunodiffusion Negative Negative [facility] Comment: A negative complement fixation and immunodiffusion (CF/ID) result does not exclude the diagnosis of histoplasmosis. Repeat testing by CF/ID in 1-2 weeks if clinically indicated. Test Performed by: [facility] [place] [place] [address] [place] Professor: Jorge Luis Ledezma Ph.D.; IA# [id number] Blood 01/07/2025 6:21 PM CDT 01/07/2025 7:48 PM CDT us Phi Armstrong MD LAB MICROBIOLOGY - GENE RAL ORDERABLES Final Result Performing Organization Address [facility] Co de Phone Number [facility] Department [place] [address] [facility] * (ABNORMAL) eGFR (01/07/2025 6:21 PM CDT) eGFR 29(L) >=60 mL/min/1. 73 m2 Comment: Interpretive Data Reference Interval Normal >/= 90 mL/min/1.73m2 Mildly decreased* 60 - 89 mL/min/1.73m2 Mildly to moderately decreased 45 - 59 mL/min/1.73m2 Moderately to severely decreased 30 - 44 mL/min/1.73m2 Severely decreased 15 - 29 mL/min/1.73m2 Kidney Failure < 15 mL/min/1.73m2 *Relative to young adult level Estimated glomerular filtration rate is determined by the 2020 CKD-EPI equation recommended by the National Kidney Foundation (A Unifying Approach to GFR Estimation: Recommendations of the NKF-ASK Task Force on Reassessing the Inclusion of Race in Diagnosing Kidney Disease, JASN 2020). The CKD-EPI equation should not be used for patients with unstable renal function and has not been validated in children and those over 70. Current interpretive data was last reviewed 2021. Blood 01/07/2025 6:21 PM CDT 01/07/2025 7:01 PM CDT us Phi Armstrong MD LAB BLOOD ORDERABLES Fi nal Result Performing Organization Address [facility]/ZIP Co de Phone Number [facility] [place] [address] * (ABNORMAL) Differential, auto (01/07/2025 6:21 PM CDT) Pathologist [facility] [place] Neutrophil abs 9.60(H) 1.50 - 6.50 K/cumm Imm gran abs 0.08 0.00 - 0.10 K/cumm [facility] Lymphocyte abs 0.49(L) 0.80 - 3.30 K/cumm [facility] Monocyte abs 1.08(H) 0.20 - 0.80 K/cumm [facility] Eosinophil abs 0.00 0.00 - 0.50 K/cumm [facility] Basophil abs 0.02 0.00 - 0.10 K/cumm [facility] Neutrophil pct 85.2 % [facility] Comment: Interpretive Data Percent cell count reference ranges are not reported, since discordance with absolute values may lead to misinterpretation of CBC data. Current Interpretive Data was last revised on 2017. Imm gran pct 0.7 % [facility] Comment: Interpretive Data Percent cell count reference ranges are not reported, since discordance with absolute values may lead to misinterpretation of CBC data. Current Interpretive Data was last revised on 2017. Lymphocyte pct 4.3 % [facility] Comment: Interpretive Data Percent cell count reference ranges are not reported, since discordance with absolute values may lead to misinterpretation of CBC data. Current Interpretive Data was last revised on 2017. Monocyte pct 9.6 % [facility] Comment: Interpretive Data Percent cell count reference ranges are not reported, since discordance with absolute values may lead to misinterpretation of CBC data. Current Interpretive Data was last revised on 2017. Eosinophil pct 0.0 % [facility] Comment: Interpretive Data Percent cell count reference ranges are not reported, since discordance with absolute values may lead to misinterpretation of CBC data. Current Interpretive Data was last revised on 2017. Basophil pct 0.2 % [facility] Comment: Interpretive Data Percent cell count reference ranges are not reported, since discordance with absolute values may lead to misinterpretation of CBC data. Current Interpretive Data was last revised on 2017. Blood 01/07/2025 6:21 PM CDT 01/07/2025 7:01 PM CDT Phi Armstrong MD LAB BLOOD ORDERABLES Fi nal Result [facility] [place] [address] * Blastomyces antibody, EIA, serum Blood (01/07/2025 6:21 PM CDT) [facility] Blastomyces Antibody Negative Negative [facility] Lab Comment: A single negative result does not exclude the diagnosis of blastomycosis. Repeat testing on a new sample in 7-14 days if clinically indicated. Test Performed by: [place] [address] [place] Professor: Jorge Luis Ledezma Ph.D.; CLIA# [id number] Blood 01/07/2025 6:21 PM CDT 01/07/2025 7:48 PM CDT Phi Armstrong MD LAB MICROBIOLOGY - GENE RAL ORDERABLES Final Result Performing Organization Address [facility] Co de Phone Number [facility] Department [place] [address] [facility] * (ABNORMAL) CBC with auto differential (01/07/2025 6:21 PM CDT) [facility] WBC 11.27(H) 3.80 - 9.90 K/cumm Hgb 11.9 11.9 - 15.5 g/dL [facility] Hct 33.8(L) 35.6 - 45.5 % [facility] Plt 391 150 - 400 K/cumm [facility] MPV 9.1 9.1 - 12.3 fL [facility] RBC 3.67(L) 3.90 - 5.20 M/cumm [facility] MCV 92.1 81.3 - 96.4 fL [facility] MCH 32.4 27.1 - 33.3 pg [facility] MCHC 35.2 32.3 - 35.7 g/dL [facility] RDW CV 13.2 11.1 - 14.9 % [facility] RDW SD 43.6 35.7 - 48.1 fL [facility] NRBC abs 0.00 0.00 - 0.01 K/cumm [facility] Blood 01/07/2025 6:21 PM CDT 01/07/2025 7:01 PM CDT Phi Armstrong MD LAB BLOOD ORDERABLES Fi nal Result Performing Organization Address [facility] Co de Phone Number [facility] Department [place] [employer] [place] [address] * Bartonella antibody panel Blood (01/07/2025 6:21 PM CDT) [facility] B Henselae, IgG <1:128 <1:128 titer [facility] B Henselae, IgM <1:20 <1:20 titer [facility] B. Rivas, IgG <1:128 <1:128 titer [facility] B. Rivas, IgM <1:20 <1:20 titer [facility] Comment: ADDITIONAL INFORMATION This test was developed and its performance characteristics determined by [facility] in a manner consistent with CLIA requirements. This test has not been cleared or approved by the U.S. Food and Drug Administration. Test Performed by: [facility] [place] [address] [place] Professor: Jorge Luis Ledezma Ph.D.; CLIA# [id number] Blood 01/07/2025 6:21 PM CDT 01/07/2025 7:48 PM CDT Phi Armstrong MD LAB MICROBIOLOGY - GENE RAL ORDERABLES Final Result Performing Organization Address City/[facility]/ZIP Co de Phone Number [facility] Department [place] [address] [facility] * Cryptococcal Antigen, Serum Blood (01/07/2025 6:21 PM CDT) Pathologist [facility] [place] Cryptococcus ag, Serum Negative Negative Comment: The cryptococcal antigen test was performed using the IMMY CrAg Lateral Flow Assay. This assay is FDA cleared for serum and CSF specimens and for the detection of Cryptococcus neoformans and Cryptococcus gattii. If the result is positive, the specimen will be titered and reported from less than 1:5 to greater than or equal to 1:2560. This assay does not distinguish between C. neoformans and C. gattii. Testing hemolyzed serum samples may lead to false negatives. Current interpretive data last revised 2018. Blood 01/07/2025 6:21 PM CDT 01/07/2025 7:09 PM CDT Phi Armstrong MD LAB MICROBIOLOGY - GENE RAL ORDERABLES Final Result Performing Organization Address [facility] Co de Phone Number [facility] Department [place] [employer] [place] [address] * aPTT (01/07/2025 6:21 PM CDT) [facility] aPTT 30 26 - 38 sec Comment: Interpretive Data Heparin therapeutic range: 66.0 - 100.0 seconds. Range based on correlation with therapeutic heparin activity range of 0.3 - 0.7 Units/mL. Current interpretive data was last revised on 2023. Blood 01/07/2025 6:21 PM CDT 01/07/2025 7:08 PM CDT Phi Armstrong MD LAB BLOOD ORDERABLES Fi nal Result Performing Organization Address City/[facility]/ZIP Co de Phone Number [facility] [place] [address] * (ABNORMAL) Protime-INR (01/07/2025 6:21 PM CDT) [facility] PT 14.5(H) 10.2 - 13.5 sec INR 1.29(H) 0.90 - 1.20 [facility] Comment: Interpretive data Oral anticoagulant therapeutic ranges: Venous thromboembolism prophylaxis or treatment: 2.0-3.0 CARDIOLOGY Standard range: 2.0-3.0 High-intensity range: 2.5-3.5 Refer to indication-specific guidelines for appropriate target ranges for prosthetic heart valve replacement. Current interpretive data was last revised on 2019. Blood 01/07/2025 6:21 PM CDT 01/07/2025 7:08 PM CDT Phi Armstrong MD LAB BLOOD ORDERABLES Fi nal Result Performing Organization Address City/[facility]/ZIP Co de Phone Number [facility] Department [place] [address] * Type and screen (01/07/2025 6:21 PM CDT) [facility] Daly, indirect Negative ABO Rh O Negative [facility] Blood 01/07/2025 6:21 PM CDT 01/07/2025 7:49 PM CDT Narrative [facility] - 01/07/2025 8:53 PM CDT Has the patient had Daratumumab or Isatuximab in the past 6 months?->Unknown Phi Armstrong MD LAB BLOOD BANK TEST ORD ERABLES Final Result Performing Organization Address [facility]/ZIP Co de Phone Number [facility] Department [place] [address] * (ABNORMAL) Comprehensive metabolic panel (01/07/2025 6:21 PM CDT) [facility] Sodium 137 135 - 145 mmol/L Potassium, pl 3.3 3.3 - 4.9 mmol/L [facility] Chloride 96(L) 97 - 110 mmol/L [facility] CO2 24 22 - 32 mmol/L [facility] Anion gap 17(H) 2 - 15 mmol/L [facility] BUN 22 6 - 25 mg/dL [facility] Creatinine 1.79(H) 0.60 - 1.10 mg/dL [facility] Glucose 81 70 - 199 mg/dL [facility] Comment: Interpretive Data Fasting glucose >/= 126 mg/dl is diagnostic for diabetes. Fasting is defined as no caloric intake for at least 8 hours. Fasting glucose between 100 mg/dl to 125 mg/dl is diagnostic of prediabetes. In a patient with classic symptoms of hyperglycemia or hyperglycemic crisis, a random glucose >/= 200 mg/dl is diagnostic for diabetes. In the absence of unequivocal hyperglycemia, results should be confirmed by repeat testing. The classification and Diagnosis of Diabetes Diabetes Care 2021; 46: S19-S40. Current interpretive data was last revised 2022. Calcium 9.2 8.5 - 10.3 mg/dL [facility] Bilirubin, total 0.4 0.1 - 1.2 mg/dL [facility] Protein, pl 6.4(L) 6.5 - 8.5 g/dL [facility] Albumin 3.2(L) 3.5 - 5.0 g/dL [facility] Alk phos 92 40 - 130 Units/L [facility] ALT 21 7 - 45 Units/L [facility] AST 32 10 - 45 Units/L [facility] Blood 01/07/2025 6:21 PM CDT 01/07/2025 7:01 PM CDT us Phi Armstrong MD LAB BLOOD ORDERABLES nal Result [facility] Department [place] [address] * TRANSESOPHAGEAL ECHO (JANELLE) W DOPPLER/CF WO CONTRAST (01/07/2025 3:14 PM CDT) Anatomical Region Laterality Modality Echocardiography 01/07/2025 2:19 PM CDT Narrative 01/07/2025 10:53 PM CDT [facility] Cardiac [place] [address] Transesophageal Echocardiographic Report Patient Name: VENKATESH ZALDIVAR L : 1945 (79y ) Sex: F Study Date: 01/07/2025 02:19:32 PM Ht(Inch): Wt(Lb): BSA: Scaffolding Helper: Location: [place] [address] Order Provider: EZRA TOLBERT BMI: Ref Provider: EZRA TOLBERT - PROCEDURES: Transesophageal Echo Report: Echocardiography, transesophageal, real-time with image documentation (2D) including probe placement, image acquisition, interpretation, and report; Doppler echocardiography, limited pulsed wave and/or continuous wave with spectral display; Doppler echocardiography color flow velocity mapping; 3D echocardiography, rendering with interpretation and reporting, not requiring post-processing on an independent workstation. Performing Physician: Performed by Azalea Silva. JANELLE probe placed by Ezra Tolbert. Consent: Informed consent was obtained from the patient's surrogate decision- maker in writing. The risks and benefits of the procedure were explained in detail to the patient's surrogate, including but not limited to the risk of aspiration, dysphagia, and esophageal perforation. After a thorough discussion of these risks and benefits, the patient's surrogate agreed to proceed. Description: A complete transesophageal echocardiogram study was performed. Additional evaluation with color flow Doppler and limited spectral Doppler was performed. Continuous HR, BP, ECG, and O2 sat monitoring was performed during the procedure. The patient received pre-procedural education. Baseline vital signs and a focused history and physical were obtained. The JANELLE study was then performed under deep sedation with IV propofol provided by the anesthesiology service. After suitable sedation, the probe was passed without difficulty. Continuous pulse oximetry, electrocardiographic monitoring, and blood pressure monitoring were maintained throughout the procedure. No complications were noted. Medications: Medication(s) given during the procedure: 300mg Propofol. Pre Vitals: HR: 86 bpm. RR: 24. BP: 184/94 mmHg. Sp02: 95 %. Post Vitals: HR: 84 bpm. RR: 25. BP: 164/86 mmHg. Sp02: 99 %. INDICATIONS: Endocarditis and Fever. FINDINGS: Study Quality: Adequate. Left Ventricle: The left ventricle appears normal in size. Left ventricular systolic function appears normal. Right Ventricle: The right ventricule appears normal in size. Right ventricular systolic function appears normal. Left Atrium: The left atrium is normal in size. The left atrial appendage is normal in appearance with no evidence of thrombus. Right Atrium: Normal right atrial size and morphology. 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 Mitral Valve: Mild mitral valve regurgitation. Specific MV Structure Abnormalities: There is a large, irregular, independently mobile echodensity consistent with vegetation attached to the P2 scallop of the posterior leaflet of the mitral valve. Maximal dimension 1.5 cm x 1.1 cm. Aortic Valve: Normal appearance and function of the aortic valve. No aortic regurgitation seen. Tricuspid Valve: Normal tricuspid valve structure. There is mild tricuspid regurgitation. Pulmonic Valve: Normal pulmonic valve structure. Normal pulmonic valve function with trace physiologic regurgitation. Aorta: There is moderate (2-4 mm) atheroma of the ascending aorta. Pulmonary Veins: Pulmonary veins are normal in appearance and pulse Doppler interrogation shows normal systolic predominant flow. 3D Findings: 3D evaluation of the mitral valve demonstrates large vegetation adhered to posterior leaflet. Rhythm: Normal Sinus rhythm was seen during the study. CONCLUSIONS: 1. Mild mitral valve regurgitation. There is a large, irregular, independently mobile echodensity consistent with vegetation attached to the P2 scallop of the posterior leaflet of the mitral valve. Maximal dimension 1.5 cm x 1.1 cm. 2. Left ventricular systolic function appears normal. 3. The right ventricule appears normal in size. Right ventricular systolic function appears normal. 4. Normal tricuspid valve structure. There is mild tricuspid regurgitation. 5. Referring physician team notified. COMPARISONS: No previous study available for comparison. ATTESTATION: Fellow that participated in the exam is Ezra Tolbert MD. DISCLAIMER: The study images and the final report will be retained in the patient chart by the Echo Laboratory for the legally required time period. This chart constitutes the legal record of any testing performed. Electronically Signed By: Azalea Silva MD 01/07/2025 10:53:12 PM CDT Procedure Note Azalea Silva MD - 01/07/2025 [facility] Cardiac Diagnostic [place] [address] Transesophageal Echocardiographic Report Patient Name: VENKATESH ZALDIVAR L : 1945 (79y ) Sex: F Study Date: 01/07/2025 02:19:32 PM Ht(Inch): Wt(Lb): BSA: Scaffolding Helper: Location: [place] [address] Order Provider: EZRA TOLBERT BMI: Ref Provider: EZRA TOLBERT - PROCEDURES: Transesophageal Echo Report: Echocardiography, transesophageal, real-timewith image documentation (2D) including probe placement, image acquisition,interpretation, and report; Doppler echocardiography, limited pulsed wave and/or continuouswave with spectral display; Doppler echocardiography color flow velocity mapping; 3D echocardiography, rendering with interpretation and reporting, notrequiring post-processing on an independent workstation. Performing Physician: Performed by Azalea Silva. JANELLE probe placed byEzra Tolbert. Consent: Informed consent was obtained from the patient's surrogatedecision- maker in writing. The risks and benefits of the procedure were explained in detailto the patient's surrogate, including but not limited to the risk of aspiration,dysphagia, and esophageal perforation. After a thorough discussion of these risks andbenefits, the patient's surrogate agreed to proceed. Description: A complete transesophageal echocardiogram study wasperformed. Additional evaluation with color flow Doppler and limited spectral Doppler wasperformed. Continuous HR, BP, ECG, and O2 sat monitoring was performed during the procedure. Thepatient received pre-procedural education. Baseline vital signs and a focusedhistory and physical were obtained. The JANELLE study was then performed under deepsedation with IV propofol provided by the anesthesiology service. After suitable sedation,the probe was passed without difficulty. Continuous pulse oximetry, electrocardiographicmonitoring, and blood pressure monitoring were maintained throughout the procedure. Nocomplications were noted. Medications: Medication(s) given during the procedure: 300mg Propofol. Pre Vitals: HR: 86 bpm. RR: 24. BP: 184/94 mmHg. Sp02: 95 %. Post Vitals: HR: 84 bpm. RR: 25. BP: 164/86 mmHg. Sp02: 99 %. INDICATIONS: Endocarditis and Fever. FINDINGS: Study Quality: Adequate. Left Ventricle: The left ventricle appears normal in size. Leftventricular systolic function appears normal. Right Ventricle: The right ventricule appears normal in size. Rightventricular systolic function appears normal. Left Atrium: The left atrium is normal in size. The left atrial appendageis normal in appearance with no evidence of thrombus. Right Atrium: Normal right atrial size and morphology. 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 Mitral Valve: Mild mitral valve regurgitation. Specific MV StructureAbnormalities: There is a large, irregular, independently mobile echodensity consistent withvegetation attached to the P2 scallop of the posterior leaflet of the mitral valve.Maximal dimension 1.5 cm x 1.1 cm. Aortic Valve: Normal appearance and function of the aortic valve. Noaortic regurgitation seen. Tricuspid Valve: Normal tricuspid valve structure. There is mild tricuspidregurgitation. Pulmonic Valve: Normal pulmonic valve structure. Normal pulmonic valvefunction with trace physiologic regurgitation. Aorta: There is moderate (2-4 mm) atheroma of the ascending aorta. Pulmonary Veins: Pulmonary veins are normal in appearance and pulseDoppler interrogation shows normal systolic predominant flow. 3D Findings: 3D evaluation of the mitral valve demonstrates largevegetation adhered to posterior leaflet. Rhythm: Normal Sinus rhythm was seen during the study. CONCLUSIONS: 1. Mild mitral valve regurgitation. 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 Maximal dimension 1.5 cm x 1.1 cm. 2. Left ventricular systolic function appears normal. 3. The right ventricule appears normal in size. Right ventricular systolicfunction appears normal. 4. Normal tricuspid valve structure. There is mild tricuspidregurgitation. 5. Referring physician team notified. COMPARISONS: No previous study available for comparison. ATTESTATION: Fellow that participated in the exam is Ezra Tolbert MD. DISCLAIMER: The study images and the final report will be retained in the patientchart by the [facility] for the legally required time period. This chart constitutesthe legal record of any testing performed. Electronically Signed By: Azalea Silva MD 01/07/2025 10:53:12 PM CDT Ezra Tolbert MD CV ECHO PROCEDURES Sheila l Result * XR Chest 1 View (01/07/2025 11:33 AM CDT) Anatomical Region Laterality Modality Body, Chest N/A Computed Radiogr aphy 01/07/2025 2:28 PM CDT Impressions 01/07/2025 2:53 PM CDT Comparison dated 12/27/2024. Ventriculoperitoneal shunt seen coursing inferiorly over the chest and abdomen and out of field of view. Cervical spine instrumentation is seen. The heart and mediastinal contours are normal. There is no mass or consolidation. There are no pleural effusions. There is no pneumothorax. Dictated by: Abdirahman Vela M.D. The radiology attending physician has personally reviewed this study, and had reviewed and/or edited this written report and agrees with it. Electronically signed by: Oscar Hazel M.D. Narrative 01/07/2025 2:53 PM CDT EXAMINATION: 1 view chest radiograph Procedure Note Oscar Hazel MD - 01/07/2025 EXAMINATION: 1 view chest radiograph IMPRESSION: Comparison dated 12/27/2024. Ventriculoperitoneal shunt seen coursing inferiorly over the chest and abdomen and out of field of view. Cervical spine instrumentation is seen. The heart and mediastinal contours are normal. There is no mass or consolidation. There are no pleural effusions. There is no pneumothorax. Dictated by: Abdirahman Vela M.D. The radiology attending physician has personally reviewed this study, and had reviewed and/or edited this written report and agrees with it. Electronically signed by: Oscar Hazel M.D. us Phi Armtsrong MD IMG XR PROCEDURES Final Result * (ABNORMAL) eGFR (01/07/2025 10:06 AM CDT) eGFR 24(L) >=60 mL/min/1. 73 m2 Comment: Interpretive Data Reference Interval Normal >/= 90 mL/min/1.73m2 Mildly decreased* 60 - 89 mL/min/1.73m2 Mildly to moderately decreased 45 - 59 mL/min/1.73m2 Moderately to severely decreased 30 - 44 mL/min/1.73m2 Severely decreased 15 - 29 mL/min/1.73m2 Kidney Failure < 15 mL/min/1.73m2 *Relative to young adult level Estimated glomerular filtration rate is determined by the 2020 CKD-EPI equation recommended by the National Kidney Foundation (A Unifying Approach to GFR Estimation: Recommendations of the NKF-ASK Task Force on Reassessing the Inclusion of Race in Diagnosing Kidney Disease, JASN 2020). The CKD-EPI equation should not be used for patients with unstable renal function and has not been validated in children and those over 70. Current interpretive data was last reviewed 2021. Blood 01/07/2025 10:0 6 AM CDT 01/07/2025 10:34 AM CDT Phi Armstrong MD LAB BLOOD ORDERABLES Fi nal Result [facility] Department [place] [address] * Vancomycin level random (01/07/2025 10:06 AM CDT) [facility] Vancomycin random 25.5 mcg/mL Comment: Interpretive Data No reference ranges have been established for random drug levels. Current Interpretive Data was last revised on 2020. Blood 01/07/2025 10:0 6 AM CDT 01/07/2025 10:34 AM CDT us Phi Armstrong MD LAB BLOOD ORDERABLES Fi nal Result Performing Organization Address [facility] de Phone Number [facility] [place] [place] [address] * (ABNORMAL) Basic metabolic panel (01/07/2025 10:06 AM CDT) [facility] Sodium 135 135 - 145 mmol/L Potassium, pl 3.7 3.3 - 4.9 mmol/L [facility] Chloride 99 97 - 110 mmol/L [facility] CO2 25 22 - 32 mmol/L [facility] Anion gap 11 2 - 15 mmol/L [facility] BUN 26(H) 6 - 25 mg/dL [facility] Creatinine 2.08(H) 0.60 - 1.10 mg/dL [facility] Glucose 88 70 - 199 mg/dL [facility] Comment: Interpretive Data Fasting glucose >/= 126 mg/dl is diagnostic for diabetes. Fasting is defined as no caloric intake for at least 8 hours. Fasting glucose between 100 mg/dl to 125 mg/dl is diagnostic of prediabetes. In a patient with classic symptoms of hyperglycemia or hyperglycemic crisis, a random glucose >/= 200 mg/dl is diagnostic for diabetes. In the absence of unequivocal hyperglycemia, results should be confirmed by repeat testing. The classification and Diagnosis of Diabetes Diabetes Care 2021; 46: S19-S40. Current interpretive data was last revised 2022. Calcium 8.8 8.5 - 10.3 mg/dL [facility] Blood 01/07/2025 10:0 6 AM CDT 01/07/2025 10:34 AM CDT Phi Armstrong MD LAB BLOOD ORDERABLES Fi nal Result Performing Organization Address [facility] Co de Phone Number [facility] [place] [address] * (ABNORMAL) eGFR (01/06/2025 9:10 PM CDT) eGFR 20(L) >=60 mL/min/1. 73 m2 Comment: Interpretive Data Reference Interval Normal >/= 90 mL/min/1.73m2 Mildly decreased* 60 - 89 mL/min/1.73m2 Mildly to moderately decreased 45 - 59 mL/min/1.73m2 Moderately to severely decreased 30 - 44 mL/min/1.73m2 Severely decreased 15 - 29 mL/min/1.73m2 Kidney Failure < 15 mL/min/1.73m2 *Relative to young adult level Estimated glomerular filtration rate is determined by the 2020 CKD-EPI equation recommended by the National Kidney Foundation (A Unifying Approach to GFR Estimation: Recommendations of the NKF-ASK Task Force on Reassessing the Inclusion of Race in Diagnosing Kidney Disease, JASN 2020). The CKD-EPI equation should not be used for patients with unstable renal function and has not been validated in children and those over 70. Current interpretive data was last reviewed 2021. Blood 01/06/2025 9:10 PM CDT 01/06/2025 9:19 PM CDT us Phi Armstrong MD LAB BLOOD ORDERABLES Fi nal Result Performing Organization Address [facility]/ZIP Co de Phone Number [facility] Department [place] [address] * (ABNORMAL) Differential, auto (01/06/2025 9:10 PM CDT) Neutrophil abs 13.30(H) 1.50 - 6.50 K/cumm Imm gran abs 0.17(H) 0.00 - 0.10 K/cumm [facility] Lymphocyte abs 0.45(L) 0.80 - 3.30 K/cumm [facility] Monocyte abs 1.21(H) 0.20 - 0.80 K/cumm [facility] Eosinophil abs 0.02 0.00 - 0.50 K/cumm [facility] Basophil abs 0.02 0.00 - 0.10 K/cumm [facility] Neutrophil pct 87.7 % [facility] Comment: Interpretive Data Percent cell count reference ranges are not reported, since discordance with absolute values may lead to misinterpretation of CBC data. Current Interpretive Data was last revised on 2017. Imm gran pct 1.1 % [facility] Comment: Interpretive Data Percent cell count reference ranges are not reported, since discordance with absolute values may lead to misinterpretation of CBC data. Current Interpretive Data was last revised on 2017. Lymphocyte pct 3.0 % [facility] Comment: Interpretive Data Percent cell count reference ranges are not reported, since discordance with absolute values may lead to misinterpretation of CBC data. Current Interpretive Data was last revised on 2017. Monocyte pct 8.0 % [facility] Comment: Interpretive Data Percent cell count reference ranges are not reported, since discordance with absolute values may lead to misinterpretation of CBC data. Current Interpretive Data was last revised on 2017. Eosinophil pct 0.1 % [facility] Comment: Interpretive Data Percent cell count reference ranges are not reported, since discordance with absolute values may lead to misinterpretation of CBC data. Current Interpretive Data was last revised on 2017. Basophil pct 0.1 % [facility] Comment: Interpretive Data Percent cell count reference ranges are not reported, since discordance with absolute values may lead to misinterpretation of CBC data. Current Interpretive Data was last revised on 2017. Blood 01/06/2025 9:10 PM CDT 01/06/2025 9:18 PM CDT Phi Armstrong MD LAB BLOOD ORDERABLES Fi nal Result Performing Organization Address [facility] Co de Phone Number [facility] Department [place] [address] * (ABNORMAL) CBC with auto differential (01/06/2025 9:10 PM CDT) Pathologist [facility] [place] WBC 15.17(H) 3.80 - 9.90 K/cumm Hgb 10.9(L) 11.9 - 15.5 g/dL [facility] Hct 30.3(L) 35.6 - 45.5 % [facility] Plt 408(H) 150 - 400 K/cumm [facility] MPV 9.2 9.1 - 12.3 fL [facility] RBC 3.30(L) 3.90 - 5.20 M/cumm [facility] MCV 91.8 81.3 - 96.4 fL [facility] MCH 33.0 27.1 - 33.3 pg [facility] MCHC 36.0(H) 32.3 - 35.7 g/dL [facility] RDW CV 12.9 11.1 - 14.9 % [facility] RDW SD 43.0 35.7 - 48.1 fL [facility] NRBC abs 0.00 0.00 - 0.01 K/cumm [facility] Blood 01/06/2025 9:10 PM CDT 01/06/2025 9:18 PM CDT us Phi Armstrong MD LAB BLOOD ORDERABLES Fi nal Result Performing Organization Address [facility] Co de Phone Number [facility] Department [place] [address] * (ABNORMAL) Comprehensive metabolic panel (01/06/2025 9:10 PM CDT) Pathologist [facility] [place] Sodium 131(L) 135 - 145 mmol/L Potassium, pl 4.2 3.3 - 4.9 mmol/L [facility] Chloride 95(L) 97 - 110 mmol/L [facility] CO2 20(L) 22 - 32 mmol/L [facility] Anion gap 16(H) 2 - 15 mmol/L [facility] BUN 28(H) 6 - 25 mg/dL [facility] Creatinine 2.46(H) 0.60 - 1.10 mg/dL [facility] Glucose 82 70 - 199 mg/dL [facility] Comment: Interpretive Data Fasting glucose >/= 126 mg/dl is diagnostic for diabetes. Fasting is defined as no caloric intake for at least 8 hours. Fasting glucose between 100 mg/dl to 125 mg/dl is diagnostic of prediabetes. In a patient with classic symptoms of hyperglycemia or hyperglycemic crisis, a random glucose >/= 200 mg/dl is diagnostic for diabetes. In the absence of unequivocal hyperglycemia, results should be confirmed by repeat testing. The classification and Diagnosis of Diabetes Diabetes Care 2021; 46: S19-S40. Current interpretive data was last revised 2022. Calcium 8.8 8.5 - 10.3 mg/dL [facility] Bilirubin, total 0.3 0.1 - 1.2 mg/dL [facility] Protein, pl 6.4(L) 6.5 - 8.5 g/dL [facility] Albumin 2.9(L) 3.5 - 5.0 g/dL [facility] Alk phos 94 40 - 130 Units/L [facility] ALT 20 7 - 45 Units/L [facility] AST 34 10 - 45 Units/L [facility] Blood 01/06/2025 9:10 PM CDT 01/06/2025 9:19 PM CDT us Phi Armstrong MD LAB BLOOD ORDERABLES Fi nal Result [facility] Department [place] [address] * (ABNORMAL) Thyroid Function Wells (01/06/2025 4:34 PM CDT) TSH 11.00(H) 0.30 - 4.20 mcIUnit/mL Blood 01/06/2025 4:34 PM CDT 01/06/2025 5:30 PM CDT Phi Armstrong MD LAB BLOOD ORDERABLES Fi nal Result Performing Organization Address [facility] de Phone Number [facility] Department [place] [address] * (ABNORMAL) Cystatin C (01/06/2025 4:34 PM CDT) Cystatin C 1.64(H) 0.60 - 1.20 mg/L Comment: Interpretive Data Cystatin C concentrations vary widely in the first month of life, particularly in pre-term infants. Concentrations gradually diminish to adult levels by 1 year of life. Concentrations tend to rise with diminishing renal function in individuals greater than 60 years of age. Current Interpretive Data was last revised on 2020. Testing performed by: [facility], [place]., [address] Blood 01/06/2025 4:34 PM CDT 01/06/2025 7:46 PM CDT Phi Armstrong MD LAB BLOOD ORDERABLES Fi nal Result Performing Organization Address [facility] de Phone Number [facility] Department [place] [address] * (ABNORMAL) Protein / creatinine ratio, urine, random (01/06/2025 4:34 PM CDT) Protein, ur, quant 51.4 mg/dL Comment: Interpretive Data No reference range established. Current interpretive data was last revised 2018. Creatinine Ur 42.9 mg/dL [facility] Comment: Interpretive Data No reference range established. Current interpretive data was last revised 2018. Protein/creatinin e ratio 1,198.1(H ) 0.0 - 180.0 mg/g CR [facility] Urine 01/06/2025 4:34 PM CDT 01/06/2025 5:24 PM CDT Phi Armstrong MD LAB URINE ORDERABLES Fi nal Result Performing Organization Address [facility] Co de Phone Number [facility] [place] [address] * Uric acid (01/06/2025 4:34 PM CDT) Pathologist [facility] [place] Uric acid 3.4 2.5 - 7.0 mg/dL Blood 01/06/2025 4:34 PM CDT 01/06/2025 5:30 PM CDT Phi Armstrong MD LAB BLOOD ORDERABLES Fi nal Result Performing Organization Address [facility] Phone Number [facility] [place] [address] * T4, free (01/06/2025 4:34 PM CDT) [facility] Free T4 1.10 0.90 - 1.70 ng/dL Blood 01/06/2025 4:34 PM CDT 01/06/2025 5:30 PM CDT Narrative [facility] - 01/06/2025 6:44 PM CDT This test was reflexed from a TSH result. Phi Armstrong MD LAB BLOOD ORDERABLES Fi nal Result Performing Organization Address [facility] de Phone Number [facility] [place] [place] [address] * Cell count w/reflex diff, CSF (01/06/2025 3:48 PM CDT) Tube Number, CSF None Color, CSF Colorless Colorless [facility] Clarity, CSF Clear Clear [facility] Xanthochromia , CSF Absent Absent [facility] Nucleated cells, CSF 5 0 - 5 /cumm [facility] RBC, CSF 0 0 - 0 /cumm [facility] CSF 01/06/2025 3:48 PM CDT 01/06/2025 3:48 PM CDT Phi Armstrong MD LAB BODY FLUIDS AND STO OLS ORDERABLES Final Result Performing Organization Address [facility] de Phone Number [facility] Department [place] [address] * (ABNORMAL) Protein, total, CSF (01/06/2025 3:48 PM CDT) Protein, CSF 100(H) 5 - 45 mg/dL CSF 01/06/2025 3:48 PM CDT 01/06/2025 3:48 PM CDT Phi Armstrong MD LAB BODY FLUIDS AND STO OLS ORDERABLES Final Result Performing Organization Address [facility] Phone Number [facility] Department [place] [address] * Glucose, CSF (01/06/2025 3:48 PM CDT) Glucose, CSF 54 mg/dL Comment: Reference Interval Information: CSF Glucose should be 60-66% of the most current plasma glucose concentration (milligrams/deciliter) CLIN. CHEM. 41/3, 343-360 (1994), Clinical Utility of Biochemical Analysis of Cerebrospinal Fluid, Michael Arita and Petey Guzman. Current interpretive data was last revised on 2018. CSF 01/06/2025 3:48 PM CDT 01/06/2025 3:48 PM CDT Phi Armstrong MD LAB BODY FLUIDS AND STO OLS ORDERABLES Final Result Performing Organization Address [facility] de Phone Number [facility] Department [place] [address] * Microorganism detection by PCR/Sequencing CSF Shunt (01/06/2025 2:31 PM CDT) Report Final Report: For additional result information, see attached scanned report. CSF (Shunt) 01/06/2025 2:31 PM CDT 01/07/2025 7:05 PM CDT Narrative [facility] - 01/11/2025 2:32 PM CDT Per LMR request, 16S Sequencing to [place]. Phi Armstrong MD LAB MICROBIOLOGY - GENE RAL ORDERABLES Final Result Performing Organization Address City/[facility] Co de Phone Number [facility] Department [place] [address] * Bacterial culture and gram stain, CSF CSF Shunt (01/06/2025 2:31 PM CDT) Direct Specimen Exam Stain: Cytospin Gram stain shows: No polymorphonuclear leukocytes seen. Other cellular material present. No organisms seen. Report Final Report: No growth [facility] CSF (Shunt) 01/06/2025 2:31 PM CDT 01/06/2025 3:23 PM CDT Narrative [facility] - 01/11/2025 10:34 AM CDT Fluid specimen received. Testing performed by [facility] ([phone]). Phi Armstrong MD LAB MICROBIOLOGY - GENE RAL ORDERABLES Final Result Performing Organization Address City/[facility] Co de Phone Number [facility] Department [place] [address] * US Kidney Complete (01/06/2025 11:12 AM CDT) Anatomical Region Laterality Modality Kidney N/A Ultrasound 01/06/2025 12:2 2 PM CDT Impressions 01/06/2025 12:22 PM CDT Findings in the right kidney described above are suggestive of pyelonephritis in a patient with urinary tract infection. Otherwise normal examination. The radiology attending physician has personally reviewed this study, and had reviewed and/or edited this written report and agrees with it. Electronically signed by: Monico Zimmerman M.D. Narrative 01/06/2025 12:22 PM CDT EXAMINATION: COMPLETE RENAL SONOGRAM HISTORY: 79-year-old female with urinary retention and mental status deterioration. History of UTI. COMPARISON: Comparison is made to CT Abdomen/Pelvis dated 12/27/2024. FINDINGS: Kidneys: Mildly increased echogenicity of the right kidney, with trace right perinephric fluid. Right urothelial thickening. The right kidney measures 11.4 cm in length, while the left kidney measures 11.5 cm in length. There is no hydronephrosis in either kidney. No renal calculi are noted. Bladder: The urinary bladder is decompressed by a Morris catheter. Procedure Note Monico Zimmerman MD - 01/06/2025 EXAMINATION: COMPLETE RENAL SONOGRAM HISTORY: 79-year-old female with urinary retention and mental status deterioration. History of UTI. COMPARISON: Comparison is made to CT Abdomen/Pelvis dated 12/27/2024. FINDINGS: Kidneys: Mildly increased echogenicity of the right kidney, with trace right perinephric fluid. Right urothelial thickening. The right kidney measures 11.4 cm in length, while the left kidney measures 11.5 cm in length. There is no hydronephrosis in either kidney. No renal calculi are noted. Bladder: The urinary bladder is decompressed by a Morris catheter. IMPRESSION: Findings in the right kidney described above are suggestive of pyelonephritis in a patient with urinary tract infection. Otherwise normal examination. The radiology attending physician has personally reviewed this study, and had reviewed and/or edited this written report and agrees with it. Electronically signed by: Monico Zimmerman M.D. Phi Armstrong MD [facility] US PROCEDURES Final Result * (ABNORMAL) Urinalysis reflex to microscopic and culture Urine (01/06/2025 9:38 AM CDT) Color, ur Straw Yellow Clarity, ur Clear Clear [facility] Specific gravity, ur 1.015 1.003 - 1.030 [facility] pH, urine 6.5 [facility] Comment: Interpretive Data U rine pH is affected by diet, medications, systemic acid-base disturbances, and renal tubular function. pH may affect urinary stone formation. For example, urine pH below 6.0 may help reduce the tendency for calcium phosphate stones and pH greater than 6.0 may reduce the tendency for uric acid stone formation. Source: [facility] Current Interpretive Data was last revised on 2017 Protein, ur ql 1+(A) Negative [facility] Glucose, ur ql Negative Negative [facility] Ketones, ur Negative Negative [facility] Bilirubin, ur Negative Negative [facility] Blood, ur Negative Negative [facility] Urobilinogen, ur <2.0 <2.0 mg/dL [facility] Nitrite, ur Negative Negative [facility] Leukocyte esterase, ur Negative Negative [facility] UA reflex comment Reflex to microscopic UA will be performed. [facility] Urine 01/06/2025 9:38 AM CDT 01/06/2025 10:17 AM CDT Phi Armstrong MD LAB MICROBIOLOGY - GENE RAL ORDERABLES Final Result Performing Organization Address City/[facility]/ZIP Co de Phone Number [facility] Department [place] [employer] [place] [address] * Urea nitrogen, urine, random (01/06/2025 9:38 AM CDT) Urea nitrogen, ur 283 mg/dL Comment: Interpretive Data No reference range established. Current interpretive data was last revised 2018. Urine 01/06/2025 9:38 AM CDT 01/06/2025 10:26 AM CDT Phi Armstrong MD LAB URINE ORDERABLES Fi nal Result Performing Organization Address City/[facility]/ZIP Co de Phone Number [facility] [place] [address] * Sodium, urine, random (01/06/2025 9:38 AM CDT) Sodium, ur 49 mmol/L Comment: Interpretive Data No reference range established. Current interpretive data was last revised 2018. Urine 01/06/2025 9:38 AM CDT 01/06/2025 10:26 AM CDT Phi Armstrong MD LAB URINE ORDERABLES Fi nal Result Performing Organization Address City/[facility] de Phone Number [facility] Department [place] [address] * Osmolality, urine (01/06/2025 9:38 AM CDT) Osmo, ur 272 mOsm/kg Urine 01/06/2025 9:38 AM CDT 01/06/2025 10:26 AM CDT Phi Armstrong MD LAB URINE ORDERABLES Fi nal Result Performing Organization Address [facility] Phone Number [facility] Department [place] [address] * Creatinine, urine, random (01/06/2025 9:38 AM CDT) Creatinine Ur 45.3 mg/dL Comment: Interpretive Data No reference range established. Current interpretive data was last revised 2018. Urine 01/06/2025 9:38 AM CDT 01/06/2025 10:26 AM CDT Phi Armstrong MD LAB URINE ORDERABLES Fi nal Result Performing Organization Address [facility] de Phone Number [facility] Department [place] [address] * (ABNORMAL) Urinalysis, microscopic only (01/06/2025 9:38 AM CDT) WBC, ur 6-10(A) 0 - 5 /HPF RBC, ur 3-5(A) 0 - 2 /HPF [facility] Epithelial cells, squamous, ur 1-5 0 - 5 /HPF [facility] Bacteria, ur Trace(A) [facility] Hyaline casts, ur 1-5 0 - 10 /LPF [facility] Culture Reflex Comment Reflex conditions for urine culture (WBC >10) not met. [facility] Urine 01/06/2025 9:38 AM CDT 01/06/2025 10:17 AM CDT Phi Armstrong MD LAB URINE ORDERABLES Fi nal Result Performing Organization Address [facility] Co de Phone Number [facility] Department [place] [address] * Critical Result Callback Chemistry (01/06/2025 6:47 AM CDT) Pathologist [facility] [place] Date Notified [id number] Time Notified 820 [facility] TestName Vancomycin Tr [facility] Called/Read Back Delia [facility] Credentials RN [facility] Called By ra [facility] Blood 01/06/2025 6:47 AM CDT 01/06/2025 7:41 AM CDT Phi Armstrong MD LAB BLOOD ORDERABLES Fi nal Result Performing Organization Address City/[facility] Co de Phone Number [facility] Department [place] [address] * (ABNORMAL) Vancomycin level trough (01/06/2025 6:47 AM CDT) Pathologist [facility] [place] Vancomycin trough 39.0(C) 10.0 - 20.0 mcg/mL Comment:Repeated and Verifie d Blood 01/06/2025 6:47 AM CDT 01/06/2025 7:29 AM CDT Phi Armstrong MD LAB BLOOD ORDERABLES Fi nal Result Performing Organization Address [facility] Co de Phone Number [facility] [place] [address] * (ABNORMAL) eGFR (01/05/2025 10:20 PM CDT) eGFR 22(L) >=60 mL/min/1. 73 m2 Comment: Interpretive Data Reference Interval Normal >/= 90 mL/min/1.73m2 Mildly decreased* 60 - 89 mL/min/1.73m2 Mildly to moderately decreased 45 - 59 mL/min/1.73m2 Moderately to severely decreased 30 - 44 mL/min/1.73m2 Severely decreased 15 - 29 mL/min/1.73m2 Kidney Failure < 15 mL/min/1.73m2 *Relative to young adult level Estimated glomerular filtration rate is determined by the 2020 CKD-EPI equation recommended by the National Kidney Foundation (A Unifying Approach to GFR Estimation: Recommendations of the NKF-ASK Task Force on Reassessing the Inclusion of Race in Diagnosing Kidney Disease, JASN 2020). The CKD-EPI equation should not be used for patients with unstable renal function and has not been validated in children and those over 70. Current interpretive data was last reviewed 2021. Blood 01/05/2025 10:2 0 PM CDT 01/05/2025 11:27 PM CDT Phi Armstrong MD LAB BLOOD ORDERABLES Fi nal Result Performing Organization Address City/[facility] Co de Phone Number [facility] Department [place] [address] * (ABNORMAL) Differential, auto (01/05/2025 10:20 PM CDT) Neutrophil abs 9.41(H) 1.50 - 6.50 K/cumm Imm gran abs 0.14(H) 0.00 - 0.10 K/cumm [facility] Lymphocyte abs 0.56(L) 0.80 - 3.30 K/cumm [facility] Monocyte abs 1.10(H) 0.20 - 0.80 K/cumm [facility] Eosinophil abs 0.09 0.00 - 0.50 K/cumm [facility] Basophil abs 0.02 0.00 - 0.10 K/cumm [facility] Neutrophil pct 83.2 % [facility] Comment: Interpretive Data Percent cell count reference ranges are not reported, since discordance with absolute values may lead to misinterpretation of CBC data. Current Interpretive Data was last revised on 2017. Imm gran pct 1.2 % [facility] Comment: Interpretive Data Percent cell count reference ranges are not reported, since discordance with absolute values may lead to misinterpretation of CBC data. Current Interpretive Data was last revised on 2017. Lymphocyte pct 4.9 % [facility] Comment: Interpretive Data Percent cell count reference ranges are not reported, since discordance with absolute values may lead to misinterpretation of CBC data. Current Interpretive Data was last revised on 2017. Monocyte pct 9.7 % [facility] Comment: Interpretive Data Percent cell count reference ranges are not reported, since discordance with absolute values may lead to misinterpretation of CBC data. Current Interpretive Data was last revised on 2017. Eosinophil pct 0.8 % [facility] Comment: Interpretive Data Percent cell count reference ranges are not reported, since discordance with absolute values may lead to misinterpretation of CBC data. Current Interpretive Data was last revised on 2017. Basophil pct 0.2 % [facility] Comment: Interpretive Data Percent cell count reference ranges are not reported, since discordance with absolute values may lead to misinterpretation of CBC data. Current Interpretive Data was last revised on 2017. Blood 01/05/2025 10:2 0 PM CDT 01/05/2025 11:28 PM CDT us Phi Armstrong MD LAB BLOOD ORDERABLES Fi nal Result [facility] Department [place] [address] * (ABNORMAL) CBC with auto differential (01/05/2025 10:20 PM CDT) Pathologist [facility] [place] WBC 11.32(H) 3.80 - 9.90 K/cumm Hgb 10.1(L) 11.9 - 15.5 g/dL [facility] Hct 29.1(L) 35.6 - 45.5 % [facility] Plt 309 150 - 400 K/cumm [facility] MPV 9.9 9.1 - 12.3 fL [facility] RBC 3.10(L) 3.90 - 5.20 M/cumm [facility] MCV 93.9 81.3 - 96.4 fL [facility] MCH 32.6 27.1 - 33.3 pg [facility] MCHC 34.7 32.3 - 35.7 g/dL [facility] RDW CV 12.8 11.1 - 14.9 % [facility] RDW SD 43.7 35.7 - 48.1 fL [facility] NRBC abs 0.00 0.00 - 0.01 K/cumm [facility] Blood 01/05/2025 10:2 0 PM CDT 01/05/2025 11:28 PM CDT us Phi Armstrong MD LAB BLOOD ORDERABLES Fi nal Result Performing Organization Address [facility] de Phone Number [facility] Department [place] [address] * (ABNORMAL) Osmolality, blood (01/05/2025 10:20 PM CDT) Pathologist [facility] [place] Osmo 267(L) 275 - 300 mOsm/kg Blood 01/05/2025 10:2 0 PM CDT 01/05/2025 11:27 PM CDT Phi Armstrong MD LAB BLOOD ORDERABLES Fi nal Result Performing Organization Address [facility] Co de Phone Number [facility] Department [place] [address] * (ABNORMAL) Comprehensive metabolic panel (01/05/2025 10:20 PM CDT) Sodium 128(L) 135 - 145 mmol/L Potassium, pl 4.0 3.3 - 4.9 mmol/L [facility] Chloride 95(L) 97 - 110 mmol/L [facility] CO2 23 22 - 32 mmol/L [facility] Anion gap 10 2 - 15 mmol/L [facility] BUN 26(H) 6 - 25 mg/dL [facility] Creatinine 2.22(H) 0.60 - 1.10 mg/dL [facility] Comment:Repeated and Verifie d Glucose 114 70 - 199 mg/dL [facility] Comment: Interpretive Data Fasting glucose >/= 126 mg/dl is diagnostic for diabetes. Fasting is defined as no caloric intake for at least 8 hours. Fasting glucose between 100 mg/dl to 125 mg/dl is diagnostic of prediabetes. In a patient with classic symptoms of hyperglycemia or hyperglycemic crisis, a random glucose >/= 200 mg/dl is diagnostic for diabetes. In the absence of unequivocal hyperglycemia, results should be confirmed by repeat testing. The classification and Diagnosis of Diabetes Diabetes Care 202; 46: S19-S40. Current interpretive data was last revised 2022. Calcium 8.0(L) 8.5 - 10.3 mg/dL [facility] Bilirubin, total 0.4 0.1 - 1.2 mg/dL [facility] Protein, pl 5.3(L) 6.5 - 8.5 g/dL [facility] Albumin 2.5(L) 3.5 - 5.0 g/dL [facility] Alk phos 81 40 - 130 Units/L [facility] ALT 16 7 - 45 Units/L [facility] AST 23 10 - 45 Units/L [facility] Blood 01/05/2025 10:2 0 PM CDT 01/05/2025 11:27 PM CDT us Phi Armtsrong MD LAB BLOOD ORDERABLES Fi nal Result [facility] [place] [address] * (ABNORMAL) eGFR (01/05/2025 12:40 AM CDT) Pathologist [facility] [place] eGFR 57(L) >=60 mL/min/1. 73 m2 Comment: Interpretive Data Reference Interval Normal >/= 90 mL/min/1.73m2 Mildly decreased* 60 - 89 mL/min/1.73m2 Mildly to moderately decreased 45 - 59 mL/min/1.73m2 Moderately to severely decreased 30 - 44 mL/min/1.73m2 Severely decreased 15 - 29 mL/min/1.73m2 Kidney Failure < 15 mL/min/1.73m2 *Relative to young adult level Estimated glomerular filtration rate is determined by the 2020 CKD-EPI equation recommended by the National Kidney Foundation (A Unifying Approach to GFR Estimation: Recommendations of the NKF-ASK Task Force on Reassessing the Inclusion of Race in Diagnosing Kidney Disease, JASN 2020). The CKD-EPI equation should not be used for patients with unstable renal function and has not been validated in children and those over 70. Current interpretive data was last reviewed 2021. Blood 01/05/2025 12:4 0 AM CDT 01/05/2025 1:26 AM CDT us Phi Armstrong MD LAB BLOOD ORDERABLES nal Result Performing Organization Address City/State/[facility] Co de Phone Number [facility] Department [place] [address] * (ABNORMAL) Differential, auto (01/05/2025 12:40 AM CDT) Pathologist [facility] [place] Neutrophil abs 10.24(H) 1.50 - 6.50 K/cumm Imm gran abs 0.14(H) 0.00 - 0.10 K/cumm [facility] Lymphocyte abs 0.55(L) 0.80 - 3.30 K/cumm [facility] Monocyte abs 1.43(H) 0.20 - 0.80 K/cumm [facility] Eosinophil abs 0.06 0.00 - 0.50 K/cumm [facility] Basophil abs 0.02 0.00 - 0.10 K/cumm [facility] Neutrophil pct 82.3 % [facility] Comment: Interpretive Data Percent cell count reference ranges are not reported, since discordance with absolute values may lead to misinterpretation of CBC data. Current Interpretive Data was last revised on 2017. Imm gran pct 1.1 % [facility] Comment: Interpretive Data Percent cell count reference ranges are not reported, since discordance with absolute values may lead to misinterpretation of CBC data. Current Interpretive Data was last revised on 2017. Lymphocyte pct 4.4 % [facility] Comment: Interpretive Data Percent cell count reference ranges are not reported, since discordance with absolute values may lead to misinterpretation of CBC data. Current Interpretive Data was last revised on 2017. Monocyte pct 11.5 % [facility] Comment: Interpretive Data Percent cell count reference ranges are not reported, since discordance with absolute values may lead to misinterpretation of CBC data. Current Interpretive Data was last revised on 2017. Eosinophil pct 0.5 % [facility] Comment: Interpretive Data Percent cell count reference ranges are not reported, since discordance with absolute values may lead to misinterpretation of CBC data. Current Interpretive Data was last revised on 2017. Basophil pct 0.2 % [facility] Comment: Interpretive Data Percent cell count reference ranges are not reported, since discordance with absolute values may lead to misinterpretation of CBC data. Current Interpretive Data was last revised on 2017. Blood 01/05/2025 12:4 0 AM CDT 01/05/2025 1:26 AM CDT us Phi Armstrong MD LAB BLOOD ORDERABLES Fi nal Result [facility] Department [place] [address] * (ABNORMAL) CBC with auto differential (01/05/2025 12:40 AM CDT) WBC 12.44(H) 3.80 - 9.90 K/cumm Hgb 10.5(L) 11.9 - 15.5 g/dL [facility] Hct 29.7(L) 35.6 - 45.5 % [facility] Plt 323 150 - 400 K/cumm [facility] MPV 9.8 9.1 - 12.3 fL [facility] RBC 3.20(L) 3.90 - 5.20 M/cumm [facility] MCV 92.8 81.3 - 96.4 fL [facility] MCH 32.8 27.1 - 33.3 pg [facility] MCHC 35.4 32.3 - 35.7 g/dL [facility] RDW CV 12.8 11.1 - 14.9 % [facility] RDW SD 43.8 35.7 - 48.1 fL [facility] NRBC abs 0.00 0.00 - 0.01 K/cumm [facility] Blood 01/05/2025 12:4 0 AM CDT 01/05/2025 1:26 AM CDT us Phi Armstrong MD LAB BLOOD ORDERABLES nal Result [facility] Department [place] [address] * (ABNORMAL) Comprehensive metabolic panel (01/05/2025 12:40 AM CDT) [facility] Sodium 128(L) 135 - 145 mmol/L Potassium, pl 3.3 3.3 - 4.9 mmol/L [facility] Chloride 94(L) 97 - 110 mmol/L [facility] CO2 27 22 - 32 mmol/L [facility] Anion gap 7 2 - 15 mmol/L [facility] BUN 18 6 - 25 mg/dL [facility] Creatinine 1.01 0.60 - 1.10 mg/dL [facility] Glucose 115 70 - 199 mg/dL [facility] Comment: Interpretive Data Fasting glucose >/= 126 mg/dl is diagnostic for diabetes. Fasting is defined as no caloric intake for at least 8 hours. Fasting glucose between 100 mg/dl to 125 mg/dl is diagnostic of prediabetes. In a patient with classic symptoms of hyperglycemia or hyperglycemic crisis, a random glucose >/= 200 mg/dl is diagnostic for diabetes. In the absence of unequivocal hyperglycemia, results should be confirmed by repeat testing. The classification and Diagnosis of Diabetes Diabetes Care 2021; 46: S19-S40. Current interpretive data was last revised 2022. Calcium 8.4(L) 8.5 - 10.3 mg/dL [facility] Bilirubin, total 0.5 0.1 - 1.2 mg/dL [facility] Protein, pl 5.7(L) 6.5 - 8.5 g/dL [facility] Albumin 2.8(L) 3.5 - 5.0 g/dL [facility] Alk phos 96 40 - 130 Units/L [facility] ALT 21 7 - 45 Units/L [facility] AST 17 10 - 45 Units/L [facility] Blood 01/05/2025 12:4 0 AM CDT 01/05/2025 1:26 AM CDT us Phi Armstrong MD LAB BLOOD ORDERABLES Fi nal Result [facility] Department [place] [address] * IR Biopsy Deep Bone (01/04/2025 5:01 PM CDT) Anatomical Region Laterality Modality Body N/A Computed Tomogra phy 01/04/2025 5:34 PM CDT Impressions 01/04/2025 5:39 PM CDT T1-T2 endplate and intervertebral disc biopsy under CT guidance. The core specimens were sent to pathology and microbiology. The aspirated fluid was submitted to microbiology. Dictated by: Thompson Adam MD The radiology attending physician has personally reviewed this study, and had reviewed and/or edited this written report and agrees with it. Electronically signed by: Florin Silverio MD Narrative 01/04/2025 5:39 PM CDT EXAMINATION: T1-T2 intervertebral disc biopsy under CT guidance HISTORY: Concern for discitis osteomyelitis ATTENDING PRESENCE: Dr. Florin Silverio MD, the attending radiologist, was present from the beginning to the end of the procedure. Dr. Thompson Adam (resident hall director) and Kelsey Baig PA-C was present and participated in the procedure. SEDATION: Conscious sedation was administered under the attending physician's direction and continuous monitoring by a trained nurse specialist who was independent from those actually performing the procedure. Total monitored sedation time was 16 minutes. During the course of the procedure, the patient received Fentanyl 200 mcg and Versed 2 mg IV. TECHNIQUE: The risks, benefits and alternatives were discussed and informed consent was obtained. Prior to beginning the procedure, [place] Protocol was performed to confirm the patient's identity and the planned procedure. Sterile barriers used during the procedure included cap, mask, hand hygiene, sterile gloves, sterile gown and a sterile drape. Chloraprep was used for cutaneous antisepsis. The patient was placed prone on the procedure table. 8 mL of a 1:1 mixture of 0.25% bupivacaine and 1% lidocaine was injected for subcutaneous and deep anesthesia. An 11-gauge on control needle was inserted into the biopsy site and appropriate needle positioning confirmed utilizing CT guidance. 3 core specimens of 1 to 2 cm in length was/were obtained. 3 mL of fluid was aspirated. The needle was removed and the skin was cleansed with hydrogen peroxide. Dermabond was placed at the needle entry site. Complication: None ESTIMATED BLOOD LOSS: <30mL CONDITION: Stable condition. DISCHARGED TO: Patient Care Division FINDINGS: Disc height loss at the T1-T2 vertebral disc space with erosions. Partially imaged anterior cervical discectomy and fusion from C4 to C7. Postprocedural CT revealed no immediate complication. Procedure Note Florin Silverio MD - 01/04/2025 EXAMINATION: T1-T2 intervertebral disc biopsy under CT guidance HISTORY: Concern for discitis osteomyelitis ATTENDING PRESENCE: Dr. Florin Silverio MD, the attending radiologist, was present from the beginning to the end of the procedure. Dr. Thompson Adam (resident hall director) and Kelsey Baig PA-C was present and participated in the procedure. SEDATION: Conscious sedation was administered under the attending physician's direction and continuous monitoring by a trained nurse specialist who was independent from those actually performing the procedure. Total monitored sedation time was 16 minutes. During the course of the procedure, the patient received Fentanyl 200 mcg and Versed 2 mg IV. TECHNIQUE: The risks, benefits and alternatives were discussed and informed consent was obtained. Prior to beginning the procedure, [place] Protocol was performed to confirm the patient's identity and the planned procedure. Sterile barriers used during the procedure included cap, mask, hand hygiene, sterile gloves, sterile gown and a sterile drape. Chloraprep was used for cutaneous antisepsis. The patient was placed prone on the procedure table. 8 mL of a 1:1 mixture of 0.25% bupivacaine and 1% lidocaine was injected for subcutaneous and deep anesthesia. An 11-gauge on control needle was inserted into the biopsy site and appropriate needle positioning confirmed utilizing CT guidance. 3 core specimens of 1 to 2 cm in length was/were obtained. 3 mL of fluid was aspirated. The needle was removed and the skin was cleansed with hydrogen peroxide. Dermabond was placed at the needle entry site. Complication: None ESTIMATED BLOOD LOSS: <30mL CONDITION: Stable condition. DISCHARGED TO: Patient Care Division FINDINGS: Disc height loss at the T1-T2 vertebral disc space with erosions. Partially imaged anterior cervical discectomy and fusion from C4 to C7. Postprocedural CT revealed no immediate complication. IMPRESSION: T1-T2 endplate and intervertebral disc biopsy under CT guidance. The core specimens were sent to pathology and microbiology. The aspirated fluid was submitted to microbiology. Dictated by: Thompson Adam MD The radiology attending physician has personally reviewed this study, and had reviewed and/or edited this written report and agrees with it. Electronically signed by: Florin Silverio MD us Phi Armstrong MD IMG IR PROCEDURES Final Result * Tissue aerobic and anaerobic culture and gram stain Biopsy Thoracic spine (01/04/2025 5:00 PM CDT) Direct Specimen Exam Stain: Rare polymorphonuclear leukocytes seen. No organisms seen. Report Final Report: No growth [facility] Biopsy (Thoracic spine) 01/04/2025 5:00 PM CDT 01/04/2025 7:26 PM CDT Narrative [facility] - 01/08/2025 10:38 AM CDT T1-T2 bone/disc biopsy Testing performed by [facility] ([phone]) Specimens submitted from normally sterile body sites will have all bacterial morphotypes identified. Specimens that contain grossly mixed mario and/or are from body sites that are not normally sterile will be examined for Staphylococcus aureus, Pseudomonas aeruginosa, beta-hemolytic strep, vancomycin-resistant Enterococcus, Bacteroides, Parabacteroides, Clostridium perfringens and fungus. If any of these are isolated, the organism will be reported. Current interpretive data was last revised on 2019. Phi Armstrong MD LAB MICROBIOLOGY - GENE RAL ORDERABLES Final Result Performing Organization Address City/[facility]/ZIP Co de Phone Number [facility] Department [place] [employer] [place] [address] * Mycology (fungal) culture and stain Aspirate Thoracic spine (01/04/2025 5:00 PM CDT) Direct Specimen Exam Stain: No Fungal elements seen. Report Final Report: No growth of fungus [facility] Aspirate (Thoracic spine) 01/04/2025 5:00 PM CDT 01/04/2025 7:22 PM CDT Narrative [facility] - 02/01/2025 7:51 AM CDT T1-T2 bone/disc aspirate Testing performed by [facility] ([phone]). Phi Armstrong MD LAB MICROBIOLOGY - GENE RAL ORDERABLES Final Result [facility] [place] [employer] [place] [address] * Mycology (fungal) culture and stain Biopsy Thoracic spine (01/04/2025 5:00 PM CDT) Direct Specimen Exam Stain: No Fungal elements seen. Report Final Report: No growth of fungus [facility] Biopsy (Thoracic spine) 01/04/2025 5:00 PM CDT 01/04/2025 7:25 PM CDT Narrative [facility] - 02/01/2025 7:51 AM CDT T1-T2 bone/disc biopsy Testing performed by [facility] ([phone]). Phi Armstrong MD LAB MICROBIOLOGY - GENE RAL ORDERABLES Final Result Performing Organization Address City/[facility]/ZIP Co de Phone Number [facility] Department [place] [address] * Aerobic and anaerobic culture and gram stain Aspirate Thoracic spine (01/04/2025 5:00 PM CDT) Direct Specimen Exam Stain: Few polymorphonuclear leukocytes seen. No organisms seen. Report Final Report: No growth [facility] Aspirate (Thoracic spine) 01/04/2025 5:00 PM CDT 01/04/2025 7:22 PM CDT Narrative [facility] - 01/08/2025 10:38 AM CDT T1-T2 bone/disc aspirate Testing performed by [facility] ([phone]) Specimens submitted from normally sterile body sites will have all bacterial morphotypes identified. Specimens that contain grossly mixed mario and/or are from body sites that are not normally sterile will be examined for Staphylococcus aureus, Pseudomonas aeruginosa, beta-hemolytic strep, vancomycin-resistant Enterococcus, Bacteroides, Parabacteroides, Clostridium perfringens and fungus. If any of these are isolated, the organism will be reported. Current interpretive data was last revised on 2019. us Phi Armstrong MD LAB MICROBIOLOGY - GENE RAL ORDERABLES Final Result Performing Organization Address City/[facility]/ZIP Co de Phone Number [facility] [place] [address] * Mycobacteriology (AFB) culture Aspirate Thoracic spine (01/04/2025 5:00 PM CDT) Report Final Report: No growth of acid-fast bacilli Aspirate (Thoracic spine) 01/04/2025 5:00 PM CDT 01/04/2025 7:22 PM CDT Narrative [facility] - 03/07/2025 1:27 PM [employer] T1-T2 bone/disc aspirate Testing performed by [facility] ([phone]). Phi Armstrong MD LAB MICROBIOLOGY - GENE RAL ORDERABLES Final Result Performing Organization Address [facility] Co de Phone Number [facility] Department [place] [address] * Mycobacteriology (AFB) culture Biopsy Thoracic spine (01/04/2025 5:00 PM CDT) Report Final Report: No growth of acid-fast bacilli Biopsy (Thoracic spine) 01/04/2025 5:00 PM CDT 01/04/2025 7:25 PM CDT Narrative [facility] 03/07/2025 1:27 PM TREE THINNER T1-T2 bone/disc biopsy Testing performed by [facility] Microbiology Laboratory ([phone]). Phi Armstrong MD LAB MICROBIOLOGY - GENE RAL ORDERABLES Final Result Performing Organization Address [facility] Co de Phone Number [facility] Department [place] [address] * Surgical pathology (01/04/2025 4:58 PM CDT) Tissue (Bone - Biopsy / Curettings) 01/04/2025 4:58 PM CDT Comment:T1-T2 bone/disc biop sy Narrative PATHOLOGY [facility] - 01/07/2025 11:47 AM CDT EPIC results best viewed via link to PDF [facility] [place] [address] Note to Patients: This report may contain a detailed description of human tissue sent by a health care provider to the laboratory for pathologic evaluation. The content of this report is essential for diagnosis and may provide important critical findings. This information may be unfamiliar to patients to review without a medical professional present. It is advised that the patient review this report in the presence of a health care provider who can answer questions and explain the details. SURGICAL PATHOLOGY REPORT FINAL Patient Name: VENKATESH ZALDIVAR Gender: F : 1945 (Age: 79) Address: [address] [place] [id number] Hospital #: [id number] Taken:01/04/2025 Received:01/04/2025 Reported: 01/07/2025 Patient Type: [facility] Inpatient Service: Medical Location: [place] [address] Physician(s): Aure Diop MD Dr. Craig Harms, M.D. Diagnosis: Bone, T1-T2, biopsy - Histiocytic infiltrate with necrosis, medullary fibrosis and rare plasma cells (see comment) tiro/01/06/2025 07:53 By this signature, I attest that the above diagnosis is based upon my personal examination of the slides(and/or other material indicated in the diagnosis). Josep Stewart M.D. Report Electronically Reviewed and Signed Out By Josep Stewart M.D. 01/07/2025 11:47:50 Microscopic Description and Comment: Immunohistochemical study for keratin AE1/AE3/PCK26 is negative, while CD163 and CD68 highlight histiocytes. AFB and GMS histochemical studies are negative. The findings are not entirely specific, but are concerning for osteomyelitis. Velma Foster M.D. 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 Operative procedure: T1-T2 bone/disc biopsy. Specimen(s) Received: A: T1-t2 bone/disc biopsy Gross Description: Received in formalin, labeled with the patient s identifiers and T1-T2 bone/disc biopsy and consists of a single red-brown core(s) of bone measuring 1.2 cm in length by 0.2 cm in diameter. Labeled A1. Acid 1 decalcification.. Jar 0. sxst/01/04/2025 19:01 PA(s): Vanessa Villalobos By this signature, I attest that the above diagnosis is based upon my personal examination of the slides(and/or other material). Addenda/Procedures The performance characteristics of some immunohistochemical stains, fluorescence in-situ hybridization tests and immunophenotyping by flow cytometry cited in this report (if any) were determined by the Surgical Pathology and Flow Cytometry Departments at [facility] as part of an ongoing quality control engineer program and in compliance with federally mandated regulations drawn from the Clinical Laboratory Improvement Act of 1988 (CLIA '88). Some of these tests rely on the use of analyte specific reagents and are subject to specific labeling requirements by the US Food and Drug Administration. Such diagnostic tests may only be performed in a facility that is certified by the Department of Health and Human Services as a high complexity laboratory under CLIA '88. The FDA has determined that such clearance or approval is not necessary. This test is used for clinical purposes. It should not be regarded as investigational or for research. Nevertheless, federal rules concerning the medical use of analyte specific reagents require that the following disclaimer be attached to the report: This test was developed and its performance characteristics determined by the Surgical Pathology and Flow Cytometry Departments of [facility]. It has not been cleared or approved by the U. S. Food and Drug Administration. IMAGES AND SCANNED DOCUMENTS, IF INCLUDED, ONLY VIEWABLE IN PDF VERSION OF REPORT us Phi Armstrong MD LAB PATHOLOGY ORDERABLE S Final Result PATHOLOGY [facility] 3rd Floor [place], [place] [phone] * (ABNORMAL) Vancomycin level trough Draw trough 30 minutes prior to 4th dose. (01/04/2025 1:00 PM CDT) Vancomycin trough <4.0(L) 10.0 - 20.0 mcg/mL Blood 01/04/2025 1:00 PM CDT 01/04/2025 1:35 PM CDT Narrative [facility] - 01/04/2025 2:16 PM CDT Draw trough 30 minutes prior to 4th dose. us Niru Vu MD LAB BLOOD ORDERABLES Final Re sult Performing Organization Address [facility] Co de Phone Number [facility] Department [place] [address] * eGFR (01/03/2025 10:39 PM CDT) eGFR >90 >=60 mL/min/1. 73 m2 Comment: Interpretive Data Reference Interval Normal >/= 90 mL/min/1.73m2 Mildly decreased* 60 - 89 mL/min/1.73m2 Mildly to moderately decreased 45 - 59 mL/min/1.73m2 Moderately to severely decreased 30 - 44 mL/min/1.73m2 Severely decreased 15 - 29 mL/min/1.73m2 Kidney Failure < 15 mL/min/1.73m2 *Relative to young adult level Estimated glomerular filtration rate is determined by the 2020 CKD-EPI equation recommended by the National Kidney Foundation (A Unifying Approach to GFR Estimation: Recommendations of the NKF-ASK Task Force on Reassessing the Inclusion of Race in Diagnosing Kidney Disease, JASN 202). The CKD-EPI equation should not be used for patients with unstable renal function and has not been validated in children and those over 70. Current interpretive data was last reviewed 2021. Blood 01/03/2025 10:3 9 PM CDT 01/03/2025 11:29 PM CDT us Phi Armstrong MD LAB BLOOD ORDERABLES Fi nal Result Performing Organization Address [facility]/ZIP Co de Phone Number [facility] Department [place] [address] * (ABNORMAL) Differential, auto (01/03/2025 10:39 PM CDT) Neutrophil abs 9.61(H) 1.50 - 6.50 K/cumm Imm gran abs 0.16(H) 0.00 - 0.10 K/cumm [facility] Lymphocyte abs 0.64(L) 0.80 - 3.30 K/cumm [facility] Monocyte abs 1.29(H) 0.20 - 0.80 K/cumm [facility] Eosinophil abs 0.07 0.00 - 0.50 K/cumm [facility] Basophil abs 0.02 0.00 - 0.10 K/cumm [facility] Neutrophil pct 81.5 % [facility] Comment: Interpretive Data Percent cell count reference ranges are not reported, since discordance with absolute values may lead to misinterpretation of CBC data. Current Interpretive Data was last revised on 2017. Imm gran pct 1.4 % [facility] Comment: Interpretive Data Percent cell count reference ranges are not reported, since discordance with absolute values may lead to misinterpretation of CBC data. Current Interpretive Data was last revised on 2017. Lymphocyte pct 5.4 % [facility] Comment: Interpretive Data Percent cell count reference ranges are not reported, since discordance with absolute values may lead to misinterpretation of CBC data. Current Interpretive Data was last revised on 2017. Monocyte pct 10.9 % [facility] Comment: Interpretive Data Percent cell count reference ranges are not reported, since discordance with absolute values may lead to misinterpretation of CBC data. Current Interpretive Data was last revised on 2017. Eosinophil pct 0.6 % [facility] Comment: Interpretive Data Percent cell count reference ranges are not reported, since discordance with absolute values may lead to misinterpretation of CBC data. Current Interpretive Data was last revised on 2017. Basophil pct 0.2 % [facility] Comment: Interpretive Data Percent cell count reference ranges are not reported, since discordance with absolute values may lead to misinterpretation of CBC data. Current Interpretive Data was last revised on 2017. Blood 01/03/2025 10:3 9 PM CDT 01/03/2025 11:29 PM CDT us Phi Armstrong MD LAB BLOOD ORDERABLES Fi nal Result [facility] Department [place] [address] * (ABNORMAL) CBC with auto differential (01/03/2025 10:39 PM CDT) [facility] WBC 11.79(H) 3.80 - 9.90 K/cumm Hgb 11.2(L) 11.9 - 15.5 g/dL [facility] Hct 31.5(L) 35.6 - 45.5 % [facility] Plt 294 150 - 400 K/cumm [facility] MPV 9.5 9.1 - 12.3 fL [facility] RBC 3.41(L) 3.90 - 5.20 M/cumm [facility] MCV 92.4 81.3 - 96.4 fL [facility] MCH 32.8 27.1 - 33.3 pg [facility] MCHC 35.6 32.3 - 35.7 g/dL [facility] RDW CV 12.7 11.1 - 14.9 % [facility] RDW SD 43.1 35.7 - 48.1 fL [facility] NRBC abs 0.00 0.00 - 0.01 K/cumm [facility] Blood 01/03/2025 10:3 9 PM CDT 01/03/2025 11:29 PM CDT us Phi Armstrong MD LAB BLOOD ORDERABLES Fi nal Result [facility] Department [place] [address] * (ABNORMAL) Comprehensive metabolic panel (01/03/2025 10:39 PM CDT) [facility] Sodium 132(L) 135 - 145 mmol/L Potassium, pl 3.4 3.3 - 4.9 mmol/L [facility] Chloride 95(L) 97 - 110 mmol/L [facility] CO2 26 22 - 32 mmol/L [facility] Anion gap 11 2 - 15 mmol/L [facility] BUN 11 6 - 25 mg/dL [facility] Creatinine 0.52(L) 0.60 - 1.10 mg/dL [facility] Glucose 100 70 - 199 mg/dL [facility] Comment: Interpretive Data Fasting glucose >/= 126 mg/dl is diagnostic for diabetes. Fasting is defined as no caloric intake for at least 8 hours. Fasting glucose between 100 mg/dl to 125 mg/dl is diagnostic of prediabetes. In a patient with classic symptoms of hyperglycemia or hyperglycemic crisis, a random glucose >/= 200 mg/dl is diagnostic for diabetes. In the absence of unequivocal hyperglycemia, results should be confirmed by repeat testing. The classification and Diagnosis of Diabetes Diabetes Care 2021; 46: S19-S40. Current interpretive data was last revised 2022. Calcium 8.4(L) 8.5 - 10.3 mg/dL [facility] Bilirubin, total 0.7 0.1 - 1.2 mg/dL [facility] Protein, pl 6.0(L) 6.5 - 8.5 g/dL [facility] Albumin 2.9(L) 3.5 - 5.0 g/dL [facility] Alk phos 114 40 - 130 Units/L [facility] ALT 24 7 - 45 Units/L [facility] AST 24 10 - 45 Units/L [facility] Blood 01/03/2025 10:3 9 PM CDT 01/03/2025 11:29 PM CDT us Phi Armstrong MD LAB BLOOD ORDERABLES nal Result [facility] Department [place] [address] * Blood culture Blood (01/03/2025 1:25 PM CDT) Report Final Report: No growth Blood 01/03/2025 1:25 PM CDT 01/03/2025 2:27 PM CDT Narrative [facility] - 01/07/2025 4:00 PM CDT From a different site than #1. Collection->Peripheral 1. Blood cultures are incubated for 4 days on a continuously monitored blood culture system. The first report of a negative culture is issued within 24 hours of receipt of the specimen in the laboratory. 2. Positive culture results are reported as soon as they are detected. 3. The most important factor for detection of microbes in the setting of bloodstream infection is the volume of blood submitted for culture. Failure to collect an optimal blood volume can result in false negative blood cultures. 4. For pediatric patients, the recommended blood volume to collect follows a weight based strategy. See the electronic test catalog for collection instructions. 5. For positive blood cultures, a rapid molecular test may be performed for organism identification using the chioma ePlex blood culture identification panel for gram positive (BCID-GP) and gram negative (BCID-GN) organisms. This nucleic acid amplification test detects microbial DNA in positive blood culture broth. This assay has been cleared by the [place] Food and Drug Administration and its performance characteristics have been verified by the [facility] Microbiology Laboratory. For questions about this culture, contact the Microbiology Laboratory at [phone]. Interpretive data was last revised on 24. us Phi Armstrong MD LAB MICROBIOLOGY - GENE [facility] ORDERABLES Final Result [facility] Department [place] [address] * Blood culture Blood (01/03/2025 1:25 PM CDT) Report Final Report: No growth Blood 01/03/2025 1:25 PM CDT 01/03/2025 2:27 PM CDT [facility] - 01/07/2025 4:00 PM CDT Collection->Peripheral 1. Blood cultures are incubated for 4 days on a continuously monitored blood culture system. The first report of a negative culture is issued within 24 hours of receipt of the specimen in the laboratory. 2. Positive culture results are reported as soon as they are detected. 3. The most important factor for detection of microbes in the setting of bloodstream infection is the volume of blood submitted for culture. Failure to collect an optimal blood volume can result in false negative blood cultures. 4. For pediatric patients, the recommended blood volume to collect follows a weight based strategy. See the electronic test catalog for collection instructions. 5. For positive blood cultures, a rapid molecular test may be performed for organism identification using the chioma ePlex blood culture identification panel for gram positive (BCID-GP) and gram negative (BCID-GN) organisms. This nucleic acid amplification test detects microbial DNA in positive blood culture broth. This assay has been cleared by the [place] Food and Drug Administration and its performance characteristics have been verified by the [facility] Microbiology Laboratory. For questions about this culture, contact the Microbiology Laboratory at [phone]. Interpretive data was last revised on 24. Phi Armstrong MD LAB MICROBIOLOGY - GENE RAL ORDERABLES Final Result Performing Organization Address [facility] de Phone Number [facility] Department [place] [address] * aPTT (01/03/2025 1:25 PM CDT) aPTT 27 26 - 38 sec Comment: Interpretive Data Heparin therapeutic range: 66.0 - 100.0 seconds. Range based on correlation with therapeutic heparin activity range of 0.3 - 0.7 Units/mL. Current interpretive data was last revised on 2023. Blood 01/03/2025 1:25 PM CDT 01/03/2025 2:23 PM CDT Phi Armstrong MD LAB BLOOD ORDERABLES Fi nal Result Performing Organization Address [facility] Co de Phone Number [facility] Department [place] [employer] [place] [address] * (ABNORMAL) Protime-INR (01/03/2025 1:25 PM CDT) PT 13.8(H) 10.2 - 13.5 sec INR 1.23(H) 0.90 - 1.20 [facility] Comment: Interpretive data Oral anticoagulant therapeutic ranges: Venous thromboembolism prophylaxis or treatment: 2.0-3.0 CARDIOLOGY Standard range: 2.0-3.0 High-intensity range: 2.5-3.5 Refer to indication-specific guidelines for appropriate target ranges for prosthetic heart valve replacement. Current interpretive data was last revised on 2019. Blood 01/03/2025 1:25 PM CDT 01/03/2025 2:22 PM CDT us Pih Armstrong MD LAB BLOOD ORDERABLES Fi nal Result [facility] Department [place] [address] * US Vein Duplex Upper Extremity Left Limited, Unilateral (01/03/2025 8:57 AM CDT) Anatomical Region Laterality Modality Vascular Left Ultrasound 01/03/2025 8:28 AM CDT Narrative 01/04/2025 10:30 PM CDT [facility] - Department of Vascular Surgery, Vascular Laboratory [address] [place] [address] Upper Extremity Venous Ultrasound Report Patient Name: VENKATESH ZALDIVAR L : 1945 (79y ) Study Date: 01/03/2025 8:28:07 AM Sex: F Tech: Location: [id number] Ref Provider: PHI ARMSTRONG Quality: Adequate Order Provider: PHI ARMSTRONG PROCEDURES: Vascular Report: Venous Duplex imaging was performed in the left upper extremity. The internal jugular, subclavian and axillary veins were evaluated for patency, spontaneity and phasicity with Doppler, compression and augmentation maneuvers. The brachial, basilic and cephalic veins were also evaluated with compression maneuvers. INDICATIONS: Left wrist edema. FINDINGS: Performing Scaffolding Helper: Tianna Carlos RVT. Left: Venous Doppler signals in the left upper extremity are within normal limits for spontaneity and phasicity; normal response to compression maneuvers. No evidence of superficial vein thrombus in the left upper extremity. Comments: Area of interest was imaged on the left wrist and there appears to be a nonvascular mass measuring 0.83cm x 1.98cm possibly consistent with a Ganglion cyst. Contralateral subclavian vein is imaged for comparison and is patent. Unilateral (limited study) performed per M.D. order. CONCLUSIONS: 1. No evidence of acute deep vein thrombosis in the left upper extremity. 2. No evidence of superficial vein thrombus in the left upper extremity. 3. Area of interest on left wrist was imaged and there appears to be a nonvascular mass possibly consistent with a Ganglion cyst. HISTORY: Hardened area on left wrist. PREVIOUS STUDIES: No previous studies for comparison. DISCLAIMER: The study images and the final report will be retained in the patient chart by the Vascular Laboratory for the legally required time period. This chart constitutes the legal record of any testing performed. ATTESTATION: I have reviewed and interpreted the pertinent images and measurements of this study. I attest to the conclusions in the final report that is provided above. Electronically Signed By: Emeka Cummings MD FACS 01/04/2025 9:24:16 PM CDT Procedure Note Emeka Cummings MD - 01/04/2025 [facility] - Department of Vascular Surgery,Vascular Laboratory [address] [place] [id number] Upper Extremity Venous Ultrasound Report Patient Name: VENKATESH ZALDIVAR L : 1945 (79y ) Study Date: 01/03/2025 8:28:07 AM Sex: F Tech: DB Location: [id number] Ref Provider: PHI ARMSTRONG Quality: Adequate Order Provider: PHI ARMSTRONG PROCEDURES: Vascular Report: Venous Duplex imaging was performed in the left upper extremity. Theinternal jugular, subclavian and axillary veins were evaluated for patency, spontaneity andphasicity with Doppler, compression and augmentation maneuvers. The brachial, basilic andcephalic veins were also evaluated with compression maneuvers. INDICATIONS: Left wrist edema. FINDINGS: Performing Scaffolding Helper: Tianna Carlos RVT. Left: Venous Doppler signals in the left upper extremity are within normallimits for spontaneity and phasicity; normal response to compression maneuvers. Noevidence of superficial vein thrombus in the left upper extremity. Comments: Area of interest was imaged on the left wrist and there appears to be anonvascular mass measuring 0.83cm x 1.98cm possibly consistent with a Ganglion cyst. Contralateral subclavian vein is imaged for comparison and is patent.Unilateral (limited study) performed per M.D. order. CONCLUSIONS: 1. No evidence of acute deep vein thrombosis in the left upperextremity. 2. No evidence of superficial vein thrombus in the left upper extremity. 3. Area of interest on left wrist was imaged and there appears to be anonvascular mass possibly consistent with a Ganglion cyst. HISTORY: Hardened area on left wrist. PREVIOUS STUDIES: No previous studies for comparison. DISCLAIMER: The study images and the final report will be retained in the patientchart by the Vascular Laboratory for the legally required time period. This chartconstitutes the legal record of any testing performed. ATTESTATION: I have reviewed and interpreted the pertinent images and measurements ofthis study. I attest to the conclusions in the final report that is provided above. Electronically Signed By: Emeka Cummings MD [facility] 01/04/2025 9:24:16 PM CDT us Phi Armstrong MD IMG US PROCEDURES Final Result * eGFR (01/02/2025 11:01 PM CDT) eGFR >90 >=60 mL/min/1. 73 m2 Comment: Interpretive Data Reference Interval Normal >/= 90 mL/min/1.73m2 Mildly decreased* 60 - 89 mL/min/1.73m2 Mildly to moderately decreased 45 - 59 mL/min/1.73m2 Moderately to severely decreased 30 - 44 mL/min/1.73m2 Severely decreased 15 - 29 mL/min/1.73m2 Kidney Failure < 15 mL/min/1.73m2 *Relative to young adult level Estimated glomerular filtration rate is determined by the 2020 CKD-EPI equation recommended by the National Kidney Foundation (A Unifying Approach to GFR Estimation: Recommendations of the NKF-ASK Task Force on Reassessing the Inclusion of Race in Diagnosing Kidney Disease, JASN 202). The CKD-EPI equation should not be used for patients with unstable renal function and has not been validated in children and those over 70. Current interpretive data was last reviewed 2021. Blood 01/02/2025 11:0 1 PM CDT 01/02/2025 11:29 PM CDT Phi Armstrong MD LAB BLOOD ORDERABLES Fi nal Result [facility] Department [place] [address] * (ABNORMAL) Differential, auto (01/02/2025 11:01 PM CDT) Neutrophil abs 9.46(H) 1.50 - 6.50 K/cumm Imm gran abs 0.20(H) 0.00 - 0.10 K/cumm [facility] Lymphocyte abs 0.81 0.80 - 3.30 K/cumm [facility] Monocyte abs 1.25(H) 0.20 - 0.80 K/cumm [facility] Eosinophil abs 0.05 0.00 - 0.50 K/cumm [facility] Basophil abs 0.01 0.00 - 0.10 K/cumm [facility] Neutrophil pct 80.3 % [facility] Comment: Interpretive Data Percent cell count reference ranges are not reported, since discordance with absolute values may lead to misinterpretation of CBC data. Current Interpretive Data was last revised on 2017. Imm gran pct 1.7 % [facility] Comment: Interpretive Data Percent cell count reference ranges are not reported, since discordance with absolute values may lead to misinterpretation of CBC data. Current Interpretive Data was last revised on 2017. Lymphocyte pct 6.9 % [facility] Comment: Interpretive Data Percent cell count reference ranges are not reported, since discordance with absolute values may lead to misinterpretation of CBC data. Current Interpretive Data was last revised on 2017. Monocyte pct 10.6 % [facility] Comment: Interpretive Data Percent cell count reference ranges are not reported, since discordance with absolute values may lead to misinterpretation of CBC data. Current Interpretive Data was last revised on 2017. Eosinophil pct 0.4 % [facility] Comment: Interpretive Data Percent cell count reference ranges are not reported, since discordance with absolute values may lead to misinterpretation of CBC data. Current Interpretive Data was last revised on 2017. Basophil pct 0.1 % [facility] Comment: Interpretive Data Percent cell count reference ranges are not reported, since discordance with absolute values may lead to misinterpretation of CBC data. Current Interpretive Data was last revised on 2017. Blood 01/02/2025 11:0 1 PM CDT 01/02/2025 11:32 PM CDT Phi Armstrong MD LAB BLOOD ORDERABLES Fi nal Result Performing Organization Address [facility] Co de Phone Number [facility] Department [place] [employer] [place] [address] * (ABNORMAL) CBC with auto differential (01/02/2025 11:01 PM CDT) WBC 11.78(H) 3.80 - 9.90 K/cumm Hgb 10.9(L) 11.9 - 15.5 g/dL [facility] Hct 30.6(L) 35.6 - 45.5 % [facility] Plt 257 150 - 400 K/cumm [facility] MPV 9.8 9.1 - 12.3 fL [facility] RBC 3.36(L) 3.90 - 5.20 M/cumm [facility] MCV 91.1 81.3 - 96.4 fL [facility] MCH 32.4 27.1 - 33.3 pg [facility] MCHC 35.6 32.3 - 35.7 g/dL [facility] RDW CV 12.7 11.1 - 14.9 % [facility] RDW SD 41.6 35.7 - 48.1 fL [facility] NRBC abs 0.00 0.00 - 0.01 K/cumm [facility] Blood 01/02/2025 11:0 1 PM CDT 01/02/2025 11:32 PM CDT Phi Armstrong MD LAB BLOOD ORDERABLES Fi nal Result Performing Organization Address City/[facility]/ZIP Co de Phone Number [facility] [place] [employer] [place] [address] * (ABNORMAL) Hemoglobin A1c (01/02/2025 11:01 PM CDT) Hgb A1C 5.7(H) 4.0 - 5.6 % Estimated Average Glucose 117 mg/dL [facility] Comment: The ADA recommends reporting an estimated Average Glucose (eAG) with all Hemoglobin A1c results using the equation derived from a study of 507 normal and diabetic adults. Minority populations were underrepresented and children were not included. (Diabetes Care 2020; 43(S1): S66-S76). The eAG is not equivalent to a fasting glucose. Blood 01/02/2025 11:0 1 PM CDT 01/02/2025 11:32 PM CDT us Phi Armstrong MD LAB BLOOD ORDERABLES Fi nal Result [facility] [place] [address] * (ABNORMAL) Lipid panel (01/02/2025 11:01 PM CDT) Cholesterol 147 30 - 199 mg/dL Comment: Interpretive Data Ages < or = 19 years Acceptable: <170 mg/dL Borderline high: 170-199 mg/dL High: >or= 200 mg/dL Ages > or = 20 years Desirable: <200 mg/dL Borderline high: 200-239 mg/dL High: >or= 240 mg/dL Literature References: 1. Expert Panel on Integrated Guidelines for Cardiovascular Health and Risk Reduction in Children and Adolescents. Pediatrics 2011;128:S213 2. NCEP Expert Panel. Circulation 2004;110:227 Current Interpretive Data was last revised on 2017. Triglycerides 100 <=149 mg/dL [facility] Comment: Interpretive Data Ages < or = 9 years Acceptable: <75 mg/dL Borderline high: 75-99 mg/dL High: >or= 100 mg/dL Ages 10 to 20 years Acceptable: <90 mg/dL Borderline high: 90-129 mg/dL High: >or= 130 mg/dL Ages > or = 20 years Desirable: <150 mg/dL Borderline high: 150-199 mg/dL High: 200-499 mg/dL Very high: >or= 499 mg/dL Literature References: 1. Expert Panel on Integrated Guidelines for Cardiovascular Health and Risk Reduction in Children and Adolescents. Pediatrics 2011;128:S213 2. NCEP Expert Panel. Circulation 2004;110:227 Current Interpretive Data was last revised on 2017. HDL 26(L) >=40 mg/dL [facility] Comment: Interpretive Data Ages < or = 19 years Acceptable: >45 mg/dL Borderline low: 40-45 mg/dL Low: <40 mg/dL Ages > or = 20 years Desirable: >or= 60 mg/dL Low: <40 mg/dL Literature References: 1. Expert Panel on Integrated Guidelines for Cardiovascular Health and Risk Reduction in Children and Adolescents. Pediatrics 2011;128:S213 2. NCEP Expert Panel. Circulation 2004;110:227 Current Interpretive Data was last revised on 2017. LDL, calculated 102 <=129 mg/dL [facility] Comment: Interpretive Data Ages < or = 19 years Acceptable: <110 mg/dL Borderline high: 110-129 mg/dL High: >or= 130 mg/dL Ages > or = 20 years Optimal: <100 mg/dL Near optimal: 100-129 mg/dL Borderline high: 130-159 mg/dL High: >160 mg/dL Calculated using the Erik LDL-C estimating equation. This equation was implemented on 2023. Prior to this date LDL-C was estimated using the Friedewald equation. Literature References: 1. Expert Panel on Integrated Guidelines for Cardiovascular Health and Risk Reduction in Children and Adolescents. Pediatrics 2011;128:S213 2. NCEP Expert Panel. Circulation 2004;110:227 3. Erik Puga et al. WOODY Cardiol. 2020 August 12;5(5):540-548. doi: [email or web address] Current Interpretive Data was last revised on 2023. Non-HDL Cholesterol 121 mg/dL [facility] Comment: Interpretive Data Ages < or = 19 years Acceptable: <120 mg/dL Borderline high: 120-144 mg/dL High: >145 mg/dL Ages > or = 20 years When triglycerides are >200 mg/dL, Non-HDL cholesterol is a secondary target of therapy with treatment goals that are 30 mg/dL greater than the LDL cholesterol target. Literature References: 1. Expert Panel on Integrated Guidelines for Cardiovascular Health and Risk Reduction in Children and Adolescents. Pediatrics 2011;128:S213 2. NCEP Expert Panel. Circulation 2004;110:227 Current Interpretive Data was last revised on 2017. Chol/HDL ratio 6 [facility] Blood 01/02/2025 11:0 1 PM CDT 01/02/2025 11:29 PM CDT us Phi Armstrong MD LAB BLOOD ORDERABLES Fi nal Result [facility] [place] [address] * (ABNORMAL) Comprehensive metabolic panel (01/02/2025 11:01 PM CDT) Sodium 126(L) 135 - 145 mmol/L Potassium, pl 3.4 3.3 - 4.9 mmol/L [facility] Chloride 92(L) 97 - 110 mmol/L [facility] CO2 26 22 - 32 mmol/L [facility] Anion gap 8 2 - 15 mmol/L [facility] BUN 15 6 - 25 mg/dL [facility] Creatinine 0.56(L) 0.60 - 1.10 mg/dL [facility] Glucose 110 70 - 199 mg/dL [facility] Comment: Interpretive Data Fasting glucose >/= 126 mg/dl is diagnostic for diabetes. Fasting is defined as no caloric intake for at least 8 hours. Fasting glucose between 100 mg/dl to 125 mg/dl is diagnostic of prediabetes. In a patient with classic symptoms of hyperglycemia or hyperglycemic crisis, a random glucose >/= 200 mg/dl is diagnostic for diabetes. In the absence of unequivocal hyperglycemia, results should be confirmed by repeat testing. The classification and Diagnosis of Diabetes Diabetes Care 2021; 46: S19-S40. Current interpretive data was last revised 2022. Calcium 8.0(L) 8.5 - 10.3 mg/dL [facility] Bilirubin, total 0.6 0.1 - 1.2 mg/dL [facility] Protein, pl 5.5(L) 6.5 - 8.5 g/dL [facility] Albumin 2.6(L) 3.5 - 5.0 g/dL [facility] Alk phos 121 40 - 130 Units/L [facility] ALT 22 7 - 45 Units/L [facility] AST 19 10 - 45 Units/L [facility] Blood 01/02/2025 11:0 1 PM CDT 01/02/2025 11:29 PM CDT us Phi Armstrong MD LAB BLOOD ORDERABLES Fi nal Result [facility] Department [place] [address] * MRI Spine Thoracic and Lumbar W WO Contrast (01/02/2025 10:02 PM CDT) Anatomical Region Laterality Modality Spine N/A Magnetic Resonan ce 01/03/2025 12:3 5 PM CDT Impressions 01/03/2025 12:35 PM CDT 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 At T1-T2, there is a suspected small abscess paralleling the right T1 lamina and suspected right septic facet arthritis. In the lower thoracic through lumbar canal, there is fluid in the subdural space with marked pachymeningeal enhancement which may reflect subdural empyema versus reactive pachymeningitis and subdural effusion from suspected spinal infection. There is also suspected septic facet arthritis on the left at L4-L5. The Critical results were discussed with Dr. Armstrong by Dr. Nathanael Leon on 01/03/2025 12:30 PM. Electronically signed by: Lina Ward M.D. Narrative 01/03/2025 12:35 PM CDT EXAMINATION: 1. Magnetic resonance imaging (MRI) of the thoracic spine without and with contrast 2. Magnetic resonance imaging (MRI) of the lumbar spine without and with contrast HISTORY: Back pain, infection suspected. FINDINGS: Images are limited by patient motion on multiple sequences, particularly the post-contrast sequences. Axial T2-weighted images through the upper thoracic spine shows a thin peripherally enhancing fluid collection measuring about 7 mm in length and about 3 mm in thickness paralleling the right T2 lamina and facet joint. There is diffuse epidural enhancement extending from the lower cervical canal through the upper thoracic canal to at least the level of T3. The edema surrounding the T1-T2 intervertebral disc space and the right T1-T2 facet joints show enhancement on these postcontrast images. There is enhancement of the paravertebral soft tissues. There is a similar-appearing pattern of bone marrow edema centered on and edematous disc at T12-L1. There is mild surrounding paraspinal edema. There is enhancement of the edematous bone marrow and enhancement the margins of the disc space and in the paravertebral edema. Posterior elements are spared. There is fluid in the subdural space on the axial T2-weighted images from at least the level of T12-L4. There is marked pachymeningeal enhancement from the lower thoracic canal beginning at least T11 through the sacrum. The sagittal and axial images are moderately limited by patient motion and difficult to discern whether there is a rim of enhancement surrounding the subdural space fluid. There is edema surrounding the left L4-L5 facet joint with a posterior projecting fluid collection and surrounding myositis. A 2nd rim-enhancing fluid collection in the paraspinal muscles lateral to the left L4-L5 facet joint measures about 1 cm in diameter on series 19 image 30 and series 29 image 47. There are no compression fractures. The spinal cord demonstrates normal signal intensity on all sequences. Limited views of the chest and abdomen show no soft tissue abnormality. The aorta is normal. Procedure Note Lina Ward MD - 01/03/2025 EXAMINATION: 1. Magnetic resonance imaging (MRI) of the thoracic spine without and with contrast 2. Magnetic resonance imaging (MRI) of the lumbar spine without and with contrast HISTORY: Back pain, infection suspected. FINDINGS: Images are limited by patient motion on multiple sequences, particularly the post-contrast sequences. Axial T2-weighted images through the upper thoracic spine shows a thin peripherally enhancing fluid collection measuring about 7 mm in length and about 3 mm in thickness paralleling the right T2 lamina and facet joint. There is diffuse epidural enhancement extending from the lower cervical canal through the upper thoracic canal to at least the level of T3. The edema surrounding the T1-T2 intervertebral disc space and the right T1-T2 facet joints show enhancement on these postcontrast images. There is enhancement of the paravertebral soft tissues. There is a similar-appearing pattern of bone marrow edema centered on and edematous disc at T12-L1. There is mild surrounding paraspinal edema. There is enhancement of the edematous bone marrow and enhancement the margins of the disc space and in the paravertebral edema. Posterior elements are spared. There is fluid in the subdural space on the axial T2-weighted images from at least the level of T12-L4. There is marked pachymeningeal enhancement from the lower thoracic canal beginning at least T11 through the sacrum. The sagittal and axial images are moderately limited by patient motion and difficult to discern whether there is a rim of enhancement surrounding the subdural space fluid. There is edema surrounding the left L4-L5 facet joint with a posterior projecting fluid collection and surrounding myositis. A 2nd rim-enhancing fluid collection in the paraspinal muscles lateral to the left L4-L5 facet joint measures about 1 cm in diameter on series 19 image 30 and series 29 image 47. There are no compression fractures. The spinal cord demonstrates normal signal intensity on all sequences. Limited views of the chest and abdomen show no soft tissue abnormality. The aorta is normal. 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 At T1-T2, there is a suspected small abscess paralleling the right T1 lamina and suspected right septic facet arthritis. In the lower thoracic through lumbar canal, there is fluid in the subdural space with marked pachymeningeal enhancement which may reflect subdural empyema versus reactive pachymeningitis and subdural effusion from suspected spinal infection. There is also suspected septic facet arthritis on the left at L4-L5. The Critical results were discussed with Dr. Armstrong by Dr. Nathanael Leon on 01/03/2025 12:30 PM. Electronically signed by: Lina Ward M.D. Phi Armstrong MD IM MRI PROCEDURES Sheila l Result * CTA Head Neck W WO Contrast (01/02/2025 12:40 PM CDT) Anatomical Region Laterality Modality Head and Neck N/A Computed Tomogra phy 01/02/2025 1:54 PM CDT Impressions 01/02/2025 5:29 PM CDT 1. Previously identified punctate areas of infarction are better evaluated on MRI 01/01/2025. No acute intracranial hemorrhage. Unchanged small bilateral cerebral convexity subdural collections. Subdural hematoma in the upper cervical spine is better evaluated on prior MRI. 2. Right frontal approach ventriculostomy catheter is unchanged in position with unchanged caliber of the ventricles. 3. 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 4. Prevertebral soft tissue thickening along the superior cervical spine, similar to the a prior MRI. No CT evidence of fracture in the odontoid process. Dictated by: Rohan Andrew MD The radiology attending physician has personally reviewed this study, and had reviewed and/or edited this written report and agrees with it. Electronically signed by: Ascencion García M.D. Narrative 01/02/2025 5:29 PM CDT EXAMINATION: 1. Computed tomography angiography (CTA) of the head without and with contrast 2. 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 TECHNIQUE: CT of the head was performed with images acquired from skull base to vertex without intravenous contrast. Computed tomographic angiography was obtained from the aortic arch to the vertex following the uneventful administration of intravenous contrast. 3D images of the CTA were generated on a dedicated workstation/time study observer. Contrast information: 93 mL Optiray-350 IV COMPARISON: Brain MRI 01/01/[address] 12/30/2024 FINDINGS: There is no acute intracranial hemorrhage. No mass effect or midline shift is present. Punctate areas of infarction identified on MRI 01/01/2025 are not well seen on CT. Foci of hypoattenuation in the right basal ganglia may correlate to area of punctate infarction seen on MRI. Right frontal approach ventriculostomy catheter tip terminates in the right ventricle. Ventricles are unchanged in caliber. There is moderate white matter heterogeneity, which is nonspecific but likely represent sequela microvascular disease. The wynne-white matter differentiation is normal. The visualized portions of the orbits are normal. The visualized portions of the mastoids are normal. The visualized portions of the paranasal sinuses are normal. No fractures are identified. Intracranial atherosclerotic calcifications are present. NECK: Scattered subcentimeter lymph nodes are seen in the neck. None are pathologically enlarged. The muscles of the neck are normal. Fascial planes are preserved and the deep spaces of the neck are normal. The visualized airway is widely patent. The base of the skull and the temporal bones are normal. Limited views of the brain including the cerebellum and brainstem are normal. The visualized portions of the orbits are normal. Post surgical changes of anterior discectomy and instrumented fusion of C4-C7. Degenerative changes of the spinal canal are better evaluated on same-day MRI. Limited views of the upper thorax demonstrate a small bilateral pleural effusions, right greater than left. There is mild biapical pleural parenchymal scarring. CTA: Left-sided aortic arch with common origin of the innominate artery and left common carotid artery. Mild atherosclerotic calcifications aortic arch. The innominate artery and both subclavian arteries are normal in course and caliber. The common carotid arteries are normal in course and caliber with mild atherosclerotic stenosis at the left carotid bifurcation. The course and caliber of the internal carotid arteries in the neck are normal. No areas of atherosclerotic narrowing or filling defects are identified. Mild atherosclerotic stenosis of the intracranial bilateral internal carotid arteries. Diminutive right A1 branch, with right A2 are dominantly supplied by the anterior commuting artery. The middle cerebral arteries are normal. The vertebral arteries are codominant. There is severe stenosis at the origin of the right vertebral artery, which remains patent distally. The basilar artery is normal. The posterior cerebral arteries are normal. There is no aneurysm or vascular malformation identified. Procedure Note Ascencion García MD - 01/02/2025 EXAMINATION: 1. Computed tomography angiography (CTA) of the head without and with contrast 2. 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 TECHNIQUE: CT of the head was performed with images acquired from skull base to vertex without intravenous contrast. Computed tomographic angiography was obtained from the aortic arch to the vertex following the uneventful administration of intravenous contrast. 3D images of the CTA were generated on a dedicated workstation/time study observer. Contrast information: 93 mL Optiray-350 IV COMPARISON: Brain MRI 01/01/[address] 12/30/2024 FINDINGS: There is no acute intracranial hemorrhage. No mass effect or midline shift is present. Punctate areas of infarction identified on MRI 01/01/2025 are not well seen on CT. Foci of hypoattenuation in the right basal ganglia may correlate to area of punctate infarction seen on MRI. Right frontal approach ventriculostomy catheter tip terminates in the right ventricle. Ventricles are unchanged in caliber. There is moderate white matter heterogeneity, which is nonspecific but likely represent sequela microvascular disease. The wynne-white matter differentiation is normal. The visualized portions of the orbits are normal. The visualized portions of the mastoids are normal. The visualized portions of the paranasal sinuses are normal. No fractures are identified. Intracranial atherosclerotic calcifications are present. NECK: Scattered subcentimeter lymph nodes are seen in the neck. None are pathologically enlarged. The muscles of the neck are normal. Fascial planes are preserved and the deep spaces of the neck are normal. The visualized airway is widely patent. The base of the skull and the temporal bones are normal. Limited views of the brain including the cerebellum and brainstem are normal. The visualized portions of the orbits are normal. Post surgical changes of anterior discectomy and instrumented fusion of C4-C7. Degenerative changes of the spinal canal are better evaluated on same-day MRI. Limited views of the upper thorax demonstrate a small bilateral pleural effusions, right greater than left. There is mild biapical pleural parenchymal scarring. CTA: Left-sided aortic arch with common origin of the innominate artery and left common carotid artery. Mild atherosclerotic calcifications aortic arch. The innominate artery and both subclavian arteries are normal in course and caliber. The common carotid arteries are normal in course and caliber with mild atherosclerotic stenosis at the left carotid bifurcation. The course and caliber of the internal carotid arteries in the neck are normal. No areas of atherosclerotic narrowing or filling defects are identified. Mild atherosclerotic stenosis of the intracranial bilateral internal carotid arteries. Diminutive right A1 branch, with right A2 are dominantly supplied by the anterior commuting artery. The middle cerebral arteries are normal. The vertebral arteries are codominant. There is severe stenosis at the origin of the right vertebral artery, which remains patent distally. The basilar artery is normal. The posterior cerebral arteries are normal. There is no aneurysm or vascular malformation identified. IMPRESSION: 1. Previously identified punctate areas of infarction are better evaluated on MRI 01/01/2025. No acute intracranial hemorrhage. Unchanged small bilateral cerebral convexity subdural collections. Subdural hematoma in the upper cervical spine is better evaluated on prior MRI. 2. Right frontal approach ventriculostomy catheter is unchanged in position with unchanged caliber of the ventricles. 3. 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 4. Prevertebral soft tissue thickening along the superior cervical spine, similar to the a prior MRI. No CT evidence of fracture in the odontoid process. Dictated by: Rohan Andrew MD The radiology attending physician has personally reviewed this study, and had reviewed and/or edited this written report and agrees with it. Electronically signed by: Ascencion García M.D. Phi Armstrong MD IMG CT PROCEDURES Final Result * Sodium, urine, random (01/02/2025 9:17 AM CDT) Pathologist [facility] [place] Sodium, ur 120 mmol/L Comment: Interpretive Data No reference range established. Current interpretive data was last revised 2018. Urine 01/02/2025 9:17 AM CDT 01/02/2025 10:24 AM CDT Phi Armstrong MD LAB URINE ORDERABLES Fi nal Result Performing Organization Address [facility] de Phone Number [facility] Department [place] [employer] [place] [address] * Osmolality, urine (01/02/2025 9:17 AM CDT) [facility] Osmo, ur 418 mOsm/kg Urine 01/02/2025 9:17 AM CDT 01/02/2025 10:24 AM CDT Phi Armstrong MD LAB URINE ORDERABLES Fi nal Result Performing Organization Address [facility] de Phone Number [facility] Department [place] [employer] [place] [address] * eGFR (01/01/2025 10:32 PM CDT) [facility] eGFR >90 >=60 mL/min/1. 73 m2 Comment: Interpretive Data Reference Interval Normal >/= 90 mL/min/1.73m2 Mildly decreased* 60 - 89 mL/min/1.73m2 Mildly to moderately decreased 45 - 59 mL/min/1.73m2 Moderately to severely decreased 30 - 44 mL/min/1.73m2 Severely decreased 15 - 29 mL/min/1.73m2 Kidney Failure < 15 mL/min/1.73m2 *Relative to young adult level Estimated glomerular filtration rate is determined by the 2020 CKD-EPI equation recommended by the National Kid[employer] (A Unifying Approach to GFR Estimation: Recommendations of the NKF-ASK Task Force on Reassessing the Inclusion of Race in Diagnosing Kidney Disease, JASN 202). The CKD-EPI equation should not be used for patients with unstable renal function and has not been validated in children and those over 70. Current interpretive data was last reviewed 2021. Blood 01/01/2025 10:3 2 PM CDT 01/01/2025 11:03 PM CDT us Phi Armstrong MD LAB BLOOD ORDERABLES nal Result [facility] Department [place] [address] * (ABNORMAL) Differential, auto (01/01/2025 10:32 PM CDT) Neutrophil abs 12.73(H) 1.50 - 6.50 K/cumm Imm gran abs 0.24(H) 0.00 - 0.10 K/cumm [facility] Lymphocyte abs 0.90 0.80 - 3.30 K/cumm [facility] Monocyte abs 1.27(H) 0.20 - 0.80 K/cumm [facility] Eosinophil abs 0.08 0.00 - 0.50 K/cumm [facility] Basophil abs 0.03 0.00 - 0.10 K/cumm [facility] Neutrophil pct 83.5 % [facility] Comment: Interpretive Data Percent cell count reference ranges are not reported, since discordance with absolute values may lead to misinterpretation of CBC data. Current Interpretive Data was last revised on 2017. Imm gran pct 1.6 % [facility] Comment: Interpretive Data Percent cell count reference ranges are not reported, since discordance with absolute values may lead to misinterpretation of CBC data. Current Interpretive Data was last revised on 2017. Lymphocyte pct 5.9 % [facility] Comment: Interpretive Data Percent cell count reference ranges are not reported, since discordance with absolute values may lead to misinterpretation of CBC data. Current Interpretive Data was last revised on 2017. Monocyte pct 8.3 % [facility] Comment: Interpretive Data Percent cell count reference ranges are not reported, since discordance with absolute values may lead to misinterpretation of CBC data. Current Interpretive Data was last revised on 2017. Eosinophil pct 0.5 % [facility] Comment: Interpretive Data Percent cell count reference ranges are not reported, since discordance with absolute values may lead to misinterpretation of CBC data. Current Interpretive Data was last revised on 2017. Basophil pct 0.2 % [facility] Comment: Interpretive Data Percent cell count reference ranges are not reported, since discordance with absolute values may lead to misinterpretation of CBC data. Current Interpretive Data was last revised on 2017. Blood 01/01/2025 10:3 2 PM CDT 01/01/2025 11:04 PM CDT Phi Armstrong MD LAB BLOOD ORDERABLES Fi nal Result [facility] Department [place] [address] * HIV 1/2 Antibody plus p24 Antigen Blood (01/01/2025 10:32 PM CDT) Pathologist [facility] [place] HIV 1/2 ab + p24 ag Nonreactive Nonreactive Comment:Nonreactive for HIV- 1 antigen and HIV-1/HIV-2 antibodies. No laboratory evidence of HIV infection. If acute HIV infection is suspected, consider testing for HIV-1 RNA. Current interpretive data was last revised on 21. Blood 01/01/2025 10:3 2 PM CDT 01/01/2025 11:03 PM CDT us Phi Armstrong MD LAB MICROBIOLOGY - GENE RAL ORDERABLES Final Result Performing Organization Address [facility]/ZIP Co de Phone Number [facility] Department [place] [address] * (ABNORMAL) CBC with auto differential (01/01/2025 10:32 PM CDT) WBC 15.25(H) 3.80 - 9.90 K/cumm Hgb 12.2 11.9 - 15.5 g/dL [facility] Hct 34.5(L) 35.6 - 45.5 % [facility] Plt 209 150 - 400 K/cumm [facility] MPV 9.9 9.1 - 12.3 fL [facility] RBC 3.74(L) 3.90 - 5.20 M/cumm [facility] MCV 92.2 81.3 - 96.4 fL [facility] MCH 32.6 27.1 - 33.3 pg [facility] MCHC 35.4 32.3 - 35.7 g/dL [facility] RDW CV 12.7 11.1 - 14.9 % [facility] RDW SD 42.3 35.7 - 48.1 fL [facility] NRBC abs 0.00 0.00 - 0.01 K/cumm [facility] Blood 01/01/2025 10:3 2 PM CDT 01/01/2025 11:04 PM CDT Phi Armstrong MD LAB BLOOD ORDERABLES Fi nal Result [facility] Department [place] [address] * (ABNORMAL) Erythrocyte sedimentation rate (01/01/2025 10:32 PM CDT) Erythrocyte sedimentation rate 37(H) 1 - 30 mm/hr Blood 01/01/2025 10:3 2 PM CDT 01/01/2025 11:04 PM CDT Phi Armstrong MD LAB BLOOD ORDERABLES Fi nal Result Performing Organization Address City/[facility]/ZIP Co de Phone Number [facility] Department [place] [address] * (ABNORMAL) CRP (acute phase) (01/01/2025 10:32 PM CDT) Pathologist [facility] [place] CRP 189.9(H) <=10.0 mg/L Blood 01/01/2025 10:3 2 PM CDT 01/01/2025 11:04 PM CDT Phi Armstrong MD LAB BLOOD ORDERABLES Fi nal Result Performing Organization Address [facility] de Phone Number [facility] [address] * (ABNORMAL) Comprehensive metabolic panel (01/01/2025 10:32 PM CDT) [facility] Sodium 122(L) 135 - 145 mmol/L Potassium, pl 3.8 3.3 - 4.9 mmol/L [facility] Chloride 88(L) 97 - 110 mmol/L [facility] CO2 26 22 - 32 mmol/L [facility] Anion gap 8 2 - 15 mmol/L [facility] BUN 12 6 - 25 mg/dL [facility] Creatinine 0.51(L) 0.60 - 1.10 mg/dL [facility] Glucose 100 70 - 199 mg/dL [facility] Comment: Interpretive Data Fasting glucose >/= 126 mg/dl is diagnostic for diabetes. Fasting is defined as no caloric intake for at least 8 hours. Fasting glucose between 100 mg/dl to 125 mg/dl is diagnostic of prediabetes. In a patient with classic symptoms of hyperglycemia or hyperglycemic crisis, a random glucose >/= 200 mg/dl is diagnostic for diabetes. In the absence of unequivocal hyperglycemia, results should be confirmed by repeat testing. The classification and Diagnosis of Diabetes Diabetes Care 202; 46: S19-S40. Current interpretive data was last revised 2022. Calcium 8.6 8.5 - 10.3 mg/dL [facility] Bilirubin, total 0.8 0.1 - 1.2 mg/dL [facility] Protein, pl 6.0(L) 6.5 - 8.5 g/dL [facility] Albumin 2.5(L) 3.5 - 5.0 g/dL [facility] Alk phos 152(H) 40 - 130 Units/L [facility] ALT 20 7 - 45 Units/L [facility] AST 17 10 - 45 Units/L [facility] Blood 01/01/2025 10:3 2 PM CDT 01/01/2025 11:03 PM CDT us Phi Armstrong MD LAB BLOOD ORDERABLES Fi nal Result [facility] Department [place] [address] * MRI Cervical Spine W WO Contrast (01/01/2025 5:18 PM CDT) Anatomical Region Laterality Modality Spine N/A Magnetic Resonan ce 01/02/2025 10:5 1 AM CDT Addenda Addendum by Ascencion García MD on 01/03/2025 12:58 PM CDT ADDENDUM Addendum issued at 01/03/2025 12:55 PM by Ascencion García MD. Upon reexamination of the imaging and follow-up thoracic spine MRI, the findings in the cervical spine likely represents an alternative process: Given presence of findings of discitis as well as within the thoracic spine and high CRP levels, the dorsal subdural collection at the craniocervical junction (at the level of C1-C2), likely represent another focus of subdural empyema. These findings were medicated by Dr. Nathanael Leon with Dr. Armstrong at 12:30 PM. Electronically signed by: Ascencion García M.D. Impressions 01/02/2025 11:50 AM CDT 1. Multiple punctate acute infarcts of the right internal capsule, right centrum semiovale bowel, left parietal white matter, and left cerebellar hemisphere involving multiple vascular territories, raising suspicion for an embolic source. 3. Disruption of the ligamentum flavum at C2. Prevertebral upper cervical soft tissue edema with entry of the anterior longitudinal ligament at C2 and of the atlantooccipital membrane. 4. Diffuse pachymeningeal thickening of the brain and cervical spine with cervical spine subdural hemorrhage extending from C2 to C3-C4 resulting in severe canal stenosis which is secondary to a combination of spondylosis and the subdural hemorrhage. The cervical spine subdural hemorrhage is likely due to traumatic injury in the setting of intracranial hypotension in the setting of shunting. 4. Questionable edema throughout the C2 vertebral body/dens with no definite correlate on CT dated 12/27/2024, which may represent a microtrabecular fracture or degenerative erosive changes. If there has been a fall/trauma in the interim since prior CT, repeat CT of the cervical spine could be considered to evaluate for suspected C2 fracture. 5. Small bilateral pleural effusions. The Critical results were discussed with Ruel Arroyo MD on 01/02/2025 initially at 8:15 AM and again with updated findings at 10:45 AM. Dictated by: Tao Arroyo MD The radiology attending physician has personally reviewed this study, and had reviewed and/or edited this written report and agrees with it. Electronically signed by: Ascencion García M.D. Narrative 01/02/2025 11:50 AM CDT EXAMINATION: 1. Magnetic resonance imaging (MRI) of the brain and brainstem without and with contrast 2. Magnetic resonance imaging (MRI) of the cervical spine without and with contrast HISTORY: Mental status change, intermittent upper extremity weakness. History of normal pressure hydrocephalus status post shunt TECHNIQUE: Multiplanar multi-weighted MRI of the brain and brainstem was performed without and with intravenous contrast using the general brain protocol. Multiplanar multi-weighted MRI of the cervical spine was performed without and with intravenous contrast using the standard protocol. Contrast information: 14 mL Gadoterate Meglumine IV COMPARISON: MRI brain 08/30/2021 FINDINGS: BRAIN: Right frontal approach ventricular catheter terminating in the frontal horn of the right lateral ventricle. The ventricles are normal in size with no ventriculomegaly. No periventricular edema. Moderate periventricular and deep white matter T2/FLAIR hyperintensities, compatible with small vessel ischemic changes. There are two punctate acute infarcts of the right genu of the internal capsule and in the right centrum semiovale. They is a punctate acute infarct of the left parietal lobe white matter and of the left cerebellar hemisphere. There is diffuse pachymeningeal enhancement. Susceptibility weighted images are degraded by artifact including motion artifact. The scalp and calvarium are normal. The superior sagittal sinus demonstrates normal venous flow. The corpus callosum is normal in shape and signal intensity. The pituitary and sella are normal. The brainstem and craniocervical junction are unremarkable. The paranasal sinuses are normal. Small bilateral mastoid effusions. The orbits appear normal. Normal flow voids are demonstrated in the carotid arteries and basilar artery. CERVICAL SPINE: Postsurgical changes of anterior discectomy and instrumented fusion from C4-C7. Mild anterolisthesis of C7 on T1. There is marrow edema throughout the C2 vertebral body/dens. There is a possible hypointense fracture line through the body of the dens. There is ligamentum flavum disruption at C2. There is edema in the atlantooccipital ligament and anterior longitudinal ligament at C2. There is prevertebral edema and edema in the interspinous interval from C2 to C4. The spinal cord demonstrates normal signal intensity on all sequences. There is diffuse pachymeningeal thickening and enhancement throughout the cervical spine. There is extra-axial hemorrhage most pronounced dorsally at C2-C3 and C3-C4 with a configuration most suggestive of subdural hematoma. Small bilateral pleural effusions. C2-C3: The disk is normal in configuration. There is severe bilateral facet arthropathy. There is mild bilateral uncovertebral joint disease. There is severe right and moderate left neuroforaminal stenosis. There is severe spinal canal stenosis due to a combination of spondylosis and the subdural hemorrhage. C3-C4: Posterior disc osteophyte complex There is moderate bilateral facet arthropathy. There is moderate bilateral uncovertebral joint disease. There is severe bilateral neuroforaminal stenosis. There is severe spinal canal stenosis secondary to a combination of spondylosis and the subdural hemorrhage. C4-C5: Discectomy. There is moderate bilateral facet arthropathy. There is moderate bilateral uncovertebral joint disease. There is moderate right and mild left neuroforaminal stenosis. There is mild spinal canal stenosis. C5-C6: Discectomy. There is mild bilateral facet arthropathy. There is moderate bilateral uncovertebral joint disease. There is moderate to severe bilateral neuroforaminal stenosis. There is mild spinal canal stenosis. C6-C7: Discectomy. There is mild bilateral facet arthropathy. There is moderate bilateral uncovertebral joint disease. There is moderate to severe bilateral neuroforaminal stenosis. There is mild spinal canal stenosis. C7-T1: The disk is normal in configuration. There is severe right and moderate left facet arthropathy. There is mild bilateral uncovertebral joint disease. There is no neuroforaminal stenosis. There is mild spinal canal stenosis. Procedure Note Ascencion García MD - 01/02/2025 EXAMINATION: 1. Magnetic resonance imaging (MRI) of the brain and brainstem without and with contrast 2. Magnetic resonance imaging (MRI) of the cervical spine without and with contrast HISTORY: Mental status change, intermittent upper extremity weakness. History of normal pressure hydrocephalus status post shunt TECHNIQUE: Multiplanar multi-weighted MRI of the brain and brainstem was performed without and with intravenous contrast using the general brain protocol. Multiplanar multi-weighted MRI of the cervical spine was performed without and with intravenous contrast using the standard protocol. Contrast information: 14 mL Gadoterate Meglumine IV COMPARISON: MRI brain 08/30/2021 FINDINGS: BRAIN: Right frontal approach ventricular catheter terminating in the frontal horn of the right lateral ventricle. The ventricles are normal in size with no ventriculomegaly. No periventricular edema. Moderate periventricular and deep white matter T2/FLAIR hyperintensities, compatible with small vessel ischemic changes. There are two punctate acute infarcts of the right genu of the internal capsule and in the right centrum semiovale. They is a punctate acute infarct of the left parietal lobe white matter and of the left cerebellar hemisphere. There is diffuse pachymeningeal enhancement. Susceptibility weighted images are degraded by artifact including motion artifact. The scalp and calvarium are normal. The superior sagittal sinus demonstrates normal venous flow. The corpus callosum is normal in shape and signal intensity. The pituitary and sella are normal. The brainstem and craniocervical junction are unremarkable. The paranasal sinuses are normal. Small bilateral mastoid effusions. The orbits appear normal. Normal flow voids are demonstrated in the carotid arteries and basilar artery. CERVICAL SPINE: Postsurgical changes of anterior discectomy and instrumented fusion from C4-C7. Mild anterolisthesis of C7 on T1. There is marrow edema throughout the C2 vertebral body/dens. There is a possible hypointense fracture line through the body of the dens. There is ligamentum flavum disruption at C2. There is edema in the atlantooccipital ligament and anterior longitudinal ligament at C2. There is prevertebral edema and edema in the interspinous interval from C2 to C4. The spinal cord demonstrates normal signal intensity on all sequences. There is diffuse pachymeningeal thickening and enhancement throughout the cervical spine. There is extra-axial hemorrhage most pronounced dorsally at C2-C3 and C3-C4 with a configuration most suggestive of subdural hematoma. Small bilateral pleural effusions. C2-C3: The disk is normal in configuration. There is severe bilateral facet arthropathy. There is mild bilateral uncovertebral joint disease. There is severe right and moderate left neuroforaminal stenosis. There is severe spinal canal stenosis due to a combination of spondylosis and the subdural hemorrhage. C3-C4: Posterior disc osteophyte complex There is moderate bilateral facet arthropathy. There is moderate bilateral uncovertebral joint disease. There is severe bilateral neuroforaminal stenosis. There is severe spinal canal stenosis secondary to a combination of spondylosis and the subdural hemorrhage. C4-C5: Discectomy. There is moderate bilateral facet arthropathy. There is moderate bilateral uncovertebral joint disease. There is moderate right and mild left neuroforaminal stenosis. There is mild spinal canal stenosis. C5-C6: Discectomy. There is mild bilateral facet arthropathy. There is moderate bilateral uncovertebral joint disease. There is moderate to severe bilateral neuroforaminal stenosis. There is mild spinal canal stenosis. C6-C7: Discectomy. There is mild bilateral facet arthropathy. There is moderate bilateral uncovertebral joint disease. There is moderate to severe bilateral neuroforaminal stenosis. There is mild spinal canal stenosis. C7-T1: The disk is normal in configuration. There is severe right and moderate left facet arthropathy. There is mild bilateral uncovertebral joint disease. There is no neuroforaminal stenosis. There is mild spinal canal stenosis. IMPRESSION: 1. Multiple punctate acute infarcts of the right internal capsule, right centrum semiovale bowel, left parietal white matter, and left cerebellar hemisphere involving multiple vascular territories, raising suspicion for an embolic source. 3. Disruption of the ligamentum flavum at C2. Prevertebral upper cervical soft tissue edema with entry of the anterior longitudinal ligament at C2 and of the atlantooccipital membrane. 4. Diffuse pachymeningeal thickening of the brain and cervical spine with cervical spine subdural hemorrhage extending from C2 to C3-C4 resulting in severe canal stenosis which is secondary to a combination of spondylosis and the subdural hemorrhage. The cervical spine subdural hemorrhage is likely due to traumatic injury in the setting of intracranial hypotension in the setting of shunting. 4. Questionable edema throughout the C2 vertebral body/dens with no definite correlate on CT dated 12/27/2024, which may represent a microtrabecular fracture or degenerative erosive changes. If there has been a fall/trauma in the interim since prior CT, repeat CT of the cervical spine could be considered to evaluate for suspected C2 fracture. 5. Small bilateral pleural effusions. The Critical results were discussed with Ruel Arroyo MD on 01/02/2025 initially at 8:15 AM and again with updated findings at 10:45 AM. Dictated by: Tao Arroyo MD The radiology attending physician has personally reviewed this study, and had reviewed and/or edited this written report and agrees with it. Electronically signed by: Ascencion García M.D. us Phi Armstrong MD IMG MRI PROCEDURES Edit ed Result - Final * MRI Brain W WO Contrast (01/01/2025 5:18 PM CDT) Anatomical Region Laterality Modality Head and Neck N/A Magnetic Resonan ce 01/02/2025 10:5 1 AM CDT Addenda Addendum by Ascencion García MD on 01/03/2025 12:58 PM CDT ADDENDUM Addendum issued at 01/03/2025 12:55 PM by Ascencion García MD. Upon reexamination of the imaging and follow-up thoracic spine MRI, the findings in the cervical spine likely represents an alternative process: Given presence of findings of discitis as well as within the thoracic spine and high CRP levels, the dorsal subdural collection at the craniocervical junction (at the level of C1-C2), likely represent another focus of subdural empyema. These findings were medicated by Dr. Nathanael Leon with Dr. Armstrong at 12:30 PM. Electronically signed by: Ascencion García M.D. Impressions 01/02/2025 11:50 AM CDT 1. Multiple punctate acute infarcts of the right internal capsule, right centrum semiovale bowel, left parietal white matter, and left cerebellar hemisphere involving multiple vascular territories, raising suspicion for an embolic source. 3. Disruption of the ligamentum flavum at C2. Prevertebral upper cervical soft tissue edema with entry of the anterior longitudinal ligament at C2 and of the atlantooccipital membrane. 4. Diffuse pachymeningeal thickening of the brain and cervical spine with cervical spine subdural hemorrhage extending from C2 to C3-C4 resulting in severe canal stenosis which is secondary to a combination of spondylosis and the subdural hemorrhage. The cervical spine subdural hemorrhage is likely due to traumatic injury in the setting of intracranial hypotension in the setting of shunting. 4. Questionable edema throughout the C2 vertebral body/dens with no definite correlate on CT dated 12/27/2024, which may represent a microtrabecular fracture or degenerative erosive changes. If there has been a fall/trauma in the interim since prior CT, repeat CT of the cervical spine could be considered to evaluate for suspected C2 fracture. 5. Small bilateral pleural effusions. The Critical results were discussed with Ruel Puga by Tao Arroyo MD on 01/02/2025 initially at 8:15 AM and again with updated findings at 10:45 AM. Dictated by: Tao Arroyo MD The radiology attending physician has personally reviewed this study, and had reviewed and/or edited this written report and agrees with it. Electronically signed by: Ascencion García M.D. Narrative 01/02/2025 11:50 AM CDT EXAMINATION: 1. Magnetic resonance imaging (MRI) of the brain and brainstem without and with contrast 2. Magnetic resonance imaging (MRI) of the cervical spine without and with contrast HISTORY: Mental status change, intermittent upper extremity weakness. History of normal pressure hydrocephalus status post shunt TECHNIQUE: Multiplanar multi-weighted MRI of the brain and brainstem was performed without and with intravenous contrast using the general brain protocol. Multiplanar multi-weighted MRI of the cervical spine was performed without and with intravenous contrast using the standard protocol. Contrast information: 14 mL Gadoterate Meglumine IV COMPARISON: MRI brain 08/30/2021 FINDINGS: BRAIN: Right frontal approach ventricular catheter terminating in the frontal horn of the right lateral ventricle. The ventricles are normal in size with no ventriculomegaly. No periventricular edema. Moderate periventricular and deep white matter T2/FLAIR hyperintensities, compatible with small vessel ischemic changes. There are two punctate acute infarcts of the right genu of the internal capsule and in the right centrum semiovale. They is a punctate acute infarct of the left parietal lobe white matter and of the left cerebellar hemisphere. There is diffuse pachymeningeal enhancement. Susceptibility weighted images are degraded by artifact including motion artifact. The scalp and calvarium are normal. The superior sagittal sinus demonstrates normal venous flow. The corpus callosum is normal in shape and signal intensity. The pituitary and sella are normal. The brainstem and craniocervical junction are unremarkable. The paranasal sinuses are normal. Small bilateral mastoid effusions. The orbits appear normal. Normal flow voids are demonstrated in the carotid arteries and basilar artery. CERVICAL SPINE: Postsurgical changes of anterior discectomy and instrumented fusion from C4-C7. Mild anterolisthesis of C7 on T1. There is marrow edema throughout the C2 vertebral body/dens. There is a possible hypointense fracture line through the body of the dens. There is ligamentum flavum disruption at C2. There is edema in the atlantooccipital ligament and anterior longitudinal ligament at C2. There is prevertebral edema and edema in the interspinous interval from C2 to C4. The spinal cord demonstrates normal signal intensity on all sequences. There is diffuse pachymeningeal thickening and enhancement throughout the cervical spine. There is extra-axial hemorrhage most pronounced dorsally at C2-C3 and C3-C4 with a configuration most suggestive of subdural hematoma. Small bilateral pleural effusions. C2-C3: The disk is normal in configuration. There is severe bilateral facet arthropathy. There is mild bilateral uncovertebral joint disease. There is severe right and moderate left neuroforaminal stenosis. There is severe spinal canal stenosis due to a combination of spondylosis and the subdural hemorrhage. C3-C4: Posterior disc osteophyte complex There is moderate bilateral facet arthropathy. There is moderate bilateral uncovertebral joint disease. There is severe bilateral neuroforaminal stenosis. There is severe spinal canal stenosis secondary to a combination of spondylosis and the subdural hemorrhage. C4-C5: Discectomy. There is moderate bilateral facet arthropathy. There is moderate bilateral uncovertebral joint disease. There is moderate right and mild left neuroforaminal stenosis. There is mild spinal canal stenosis. C5-C6: Discectomy. There is mild bilateral facet arthropathy. There is moderate bilateral uncovertebral joint disease. There is moderate to severe bilateral neuroforaminal stenosis. There is mild spinal canal stenosis. C6-C7: Discectomy. There is mild bilateral facet arthropathy. There is moderate bilateral uncovertebral joint disease. There is moderate to severe bilateral neuroforaminal stenosis. There is mild spinal canal stenosis. C7-T1: The disk is normal in configuration. There is severe right and moderate left facet arthropathy. There is mild bilateral uncovertebral joint disease. There is no neuroforaminal stenosis. There is mild spinal canal stenosis. Procedure Note Ascencion García MD - 01/02/2025 EXAMINATION: 1. Magnetic resonance imaging (MRI) of the brain and brainstem without and with contrast 2. Magnetic resonance imaging (MRI) of the cervical spine without and with contrast HISTORY: Mental status change, intermittent upper extremity weakness. History of normal pressure hydrocephalus status post shunt TECHNIQUE: Multiplanar multi-weighted MRI of the brain and brainstem was performed without and with intravenous contrast using the general brain protocol. Multiplanar multi-weighted MRI of the cervical spine was performed without and with intravenous contrast using the standard protocol. Contrast information: 14 mL Gadoterate Meglumine IV COMPARISON: MRI brain 08/30/2021 FINDINGS: BRAIN: Right frontal approach ventricular catheter terminating in the frontal horn of the right lateral ventricle. The ventricles are normal in size with no ventriculomegaly. No periventricular edema. Moderate periventricular and deep white matter T2/FLAIR hyperintensities, compatible with small vessel ischemic changes. There are two punctate acute infarcts of the right genu of the internal capsule and in the right centrum semiovale. They is a punctate acute infarct of the left parietal lobe white matter and of the left cerebellar hemisphere. There is diffuse pachymeningeal enhancement. Susceptibility weighted images are degraded by artifact including motion artifact. The scalp and calvarium are normal. The superior sagittal sinus demonstrates normal venous flow. The corpus callosum is normal in shape and signal intensity. The pituitary and sella are normal. The brainstem and craniocervical junction are unremarkable. The paranasal sinuses are normal. Small bilateral mastoid effusions. The orbits appear normal. Normal flow voids are demonstrated in the carotid arteries and basilar artery. CERVICAL SPINE: Postsurgical changes of anterior discectomy and instrumented fusion from C4-C7. Mild anterolisthesis of C7 on T1. There is marrow edema throughout the C2 vertebral body/dens. There is a possible hypointense fracture line through the body of the dens. There is ligamentum flavum disruption at C2. There is edema in the atlantooccipital ligament and anterior longitudinal ligament at C2. There is prevertebral edema and edema in the interspinous interval from C2 to C4. The spinal cord demonstrates normal signal intensity on all sequences. There is diffuse pachymeningeal thickening and enhancement throughout the cervical spine. There is extra-axial hemorrhage most pronounced dorsally at C2-C3 and C3-C4 with a configuration most suggestive of subdural hematoma. Small bilateral pleural effusions. C2-C3: The disk is normal in configuration. There is severe bilateral facet arthropathy. There is mild bilateral uncovertebral joint disease. There is severe right and moderate left neuroforaminal stenosis. There is severe spinal canal stenosis due to a combination of spondylosis and the subdural hemorrhage. C3-C4: Posterior disc osteophyte complex There is moderate bilateral facet arthropathy. There is moderate bilateral uncovertebral joint disease. There is severe bilateral neuroforaminal stenosis. There is severe spinal canal stenosis secondary to a combination of spondylosis and the subdural hemorrhage. C4-C5: Discectomy. There is moderate bilateral facet arthropathy. There is moderate bilateral uncovertebral joint disease. There is moderate right and mild left neuroforaminal stenosis. There is mild spinal canal stenosis. C5-C6: Discectomy. There is mild bilateral facet arthropathy. There is moderate bilateral uncovertebral joint disease. There is moderate to severe bilateral neuroforaminal stenosis. There is mild spinal canal stenosis. C6-C7: Discectomy. There is mild bilateral facet arthropathy. There is moderate bilateral uncovertebral joint disease. There is moderate to severe bilateral neuroforaminal stenosis. There is mild spinal canal stenosis. C7-T1: The disk is normal in configuration. There is severe right and moderate left facet arthropathy. There is mild bilateral uncovertebral joint disease. There is no neuroforaminal stenosis. There is mild spinal canal stenosis. IMPRESSION: 1. Multiple punctate acute infarcts of the right internal capsule, right centrum semiovale bowel, left parietal white matter, and left cerebellar hemisphere involving multiple vascular territories, raising suspicion for an embolic source. 3. Disruption of the ligamentum flavum at C2. Prevertebral upper cervical soft tissue edema with entry of the anterior longitudinal ligament at C2 and of the atlantooccipital membrane. 4. Diffuse pachymeningeal thickening of the brain and cervical spine with cervical spine subdural hemorrhage extending from C2 to C3-C4 resulting in severe canal stenosis which is secondary to a combination of spondylosis and the subdural hemorrhage. The cervical spine subdural hemorrhage is likely due to traumatic injury in the setting of intracranial hypotension in the setting of shunting. 4. Questionable edema throughout the C2 vertebral body/dens with no definite correlate on CT dated 12/27/2024, which may represent a microtrabecular fracture or degenerative erosive changes. If there has been a fall/trauma in the interim since prior CT, repeat CT of the cervical spine could be considered to evaluate for suspected C2 fracture. 5. Small bilateral pleural effusions. The Critical results were discussed with Ruel Puga by Tao Arroyo MD on 01/02/2025 initially at 8:15 AM and again with updated findings at 10:45 AM. Dictated by: Tao Arroyo MD The radiology attending physician has personally reviewed this study, and had reviewed and/or edited this written report and agrees with it. Electronically signed by: Ascencion García M.D. us Phi Armstrong MD IMG MRI PROCEDURES Edit ed Result - Final * Cyclic citrul peptide antibody, IgG (01/01/2025 6:55 AM CDT) CCP Ab <0.5 <=2.9 units/mL Comment: Interpretive data Negative: <3 units/mL Positive: > or equal to 3 units/mL Current interpretive data was last revised on 2016. Blood 01/01/2025 6:55 AM CDT 01/01/2025 7:07 AM CDT us Amanuel Pepe MD LAB BLOOD ORDERABLES Final Result [facility] [place] [address] * Rheumatoid factor (01/01/2025 6:52 AM CDT) Pathologist [facility] [place] Rheumatoid factor, quant 15.0 0.1 - 15.0 IUnits/mL Blood 01/01/2025 6:52 AM CDT 01/01/2025 7:03 AM CDT us Phi Armstrong MD LAB BLOOD ORDERABLES Fi nal Result Performing Organization Address [facility] de Phone Number [facility] [place] [address] * Folate (01/01/2025 6:52 AM CDT) [facility] Folic acid >20.0 >=5.0 ng/mL Blood 01/01/2025 6:52 AM CDT 01/01/2025 7:03 AM CDT Phi Armstrong MD LAB BLOOD ORDERABLES Fi nal Result Performing Organization Address [facility] de Phone Number [facility] [place] [place] [address] * (ABNORMAL) Cortisol (01/01/2025 6:52 AM CDT) [facility] Cortisol 22.6(H) 4.8 - 19.5 mcg/dL Comment: Interpretive Data: Morning hours 6-10 a.m. 4.8 - 19.5 mcg/dL Afternoon hours 4-8 p.m. 2.5 - 11.9 mcg/dL This analyte undergoes marked diurnal variation. Current interpretive data was last revised 23. Blood 01/01/2025 6:52 AM CDT 01/01/2025 7:03 AM CDT us Phi Armstrong MD LAB BLOOD ORDERABLES Fi nal Result Performing Organization Address City/[facility] de Phone Number [facility] [place] [place] [address] * Sodium, urine, random (01/01/2025 2:44 AM CDT) Sodium, ur 123 mmol/L Comment: Interpretive Data No reference range established. Current interpretive data was last revised 2018. Urine 01/01/2025 2:44 AM CDT 01/01/2025 2:54 AM CDT Phi Armstrong MD LAB URINE ORDERABLES Fi nal Result Performing Organization Address [facility] de Phone Number [facility] [place] [address] * Osmolality, urine (01/01/2025 2:44 AM CDT) Osmo, ur 421 mOsm/kg Urine 01/01/2025 2:44 AM CDT 01/01/2025 2:54 AM CDT Phi Armstrong MD LAB URINE ORDERABLES Fi nal Result Performing Organization Address [facility] de Phone Number [facility] Department [place] [address] * XR Ventriculoperitoneal Shunt Series (01/01/2025 2:18 AM CDT) Anatomical Region Laterality Modality Head and Neck N/A Computed Radiogr aphy 01/01/2025 10:5 3 AM CDT Impressions 01/01/2025 12:02 PM CDT Right frontal approach ventriculoperitoneal shunt catheter without evidence of kink or discontinuity. Dictated by: Tao Arroyo MD The radiology attending physician has personally reviewed this study, and had reviewed and/or edited this written report and agrees with it. Electronically signed by: Leonard Franco M.D. Narrative 01/01/2025 12:02 PM CDT EXAMINATION: XR VENTRICULOPERITONEAL SHUNT SERIES (ADULT) HISTORY: Evaluate for ventriculoperitoneal shunt malfunction COMPARISON: Shunt series 02/14/2022 FINDINGS: A radiographic shunt series was performed including 8 total radiographs and the following views: FRONTAL LATERAL VIEWS OF THE SKULL, FRONTAL LATERAL VIEWS OF THE CHEST, AND FRONTAL LATERAL VIEWS OF THE ABDOMEN There is a right frontal approach ventriculoperitoneal shunt catheter which courses inferiorly along the right neck, right chest, and right abdomen before terminating in the left hemiabdomen. There is no kink or discontinuity along the radiopaque portions of the shunt catheter. Anterior discectomy and instrumented fusion of the lower cervical spine. Surgical clips over the neck. S-shaped curvature of the thoracolumbar spine. Multilevel degenerative disc disease. Large vessel vascular calcifications. The lungs are clear. The bowel gas pattern is normal. Procedure Note Leonard Franco MD - 01/01/2025 EXAMINATION: XR VENTRICULOPERITONEAL SHUNT SERIES (ADULT) HISTORY: Evaluate for ventriculoperitoneal shunt malfunction COMPARISON: Shunt series 02/14/2022 FINDINGS: A radiographic shunt series was performed including 8 total radiographs and the following views: FRONTAL LATERAL VIEWS OF THE SKULL, FRONTAL LATERAL VIEWS OF THE CHEST, AND FRONTAL LATERAL VIEWS OF THE ABDOMEN There is a right frontal approach ventriculoperitoneal shunt catheter which courses inferiorly along the right neck, right chest, and right abdomen before terminating in the left hemiabdomen. There is no kink or discontinuity along the radiopaque portions of the shunt catheter. Anterior discectomy and instrumented fusion of the lower cervical spine. Surgical clips over the neck. S-shaped curvature of the thoracolumbar spine. Multilevel degenerative disc disease. Large vessel vascular calcifications. The lungs are clear. The bowel gas pattern is normal. IMPRESSION: Right frontal approach ventriculoperitoneal shunt catheter without evidence of kink or discontinuity. Dictated by: Tao Arroyo MD The radiology attending physician has personally reviewed this study, and had reviewed and/or edited this written report and agrees with it. Electronically signed by: Leonard Franco M.D. Phi Armstrong MD IMG XR PROCEDURES Final Result * eGFR (12/31/2024 11:34 PM CDT) Pathologist [facility] [place] eGFR >90 >=60 mL/min/1. 73 m2 Comment: Interpretive Data Reference Interval Normal >/= 90 mL/min/1.73m2 Mildly decreased* 60 - 89 mL/min/1.73m2 Mildly to moderately decreased 45 - 59 mL/min/1.73m2 Moderately to severely decreased 30 - 44 mL/min/1.73m2 Severely decreased 15 - 29 mL/min/1.73m2 Kidney Failure < 15 mL/min/1.73m2 *Relative to young adult level Estimated glomerular filtration rate is determined by the 2020 CKD-EPI equation recommended by the National Kidney [employer] (A Unifying Approach to GFR Estimation: Recommendations of the NKF-ASK Task Force on Reassessing the Inclusion of Race in Diagnosing Kidney Disease, JASN 2020). The CKD-EPI equation should not be used for patients with unstable renal function and has not been validated in children and those over 70. Current interpretive data was last reviewed 2021. Blood 12/31/2024 11:3 4 PM CDT 01/01/2025 12:12 AM CDT us Phi Armstrong MD LAB BLOOD ORDERABLES nal Result [facility] Department [place] [address] * (ABNORMAL) Differential, auto (12/31/2024 11:34 PM CDT) Pathologist [facility] [place] Neutrophil abs 11.39(H) 1.50 - 6.50 K/cumm Imm gran abs 0.24(H) 0.00 - 0.10 K/cumm [facility] Lymphocyte abs 0.90 0.80 - 3.30 K/cumm [facility] Monocyte abs 1.11(H) 0.20 - 0.80 K/cumm [facility] Eosinophil abs 0.07 0.00 - 0.50 K/cumm [facility] Basophil abs 0.04 0.00 - 0.10 K/cumm [facility] Neutrophil pct 82.9 % [facility] Comment: Interpretive Data Percent cell count reference ranges are not reported, since discordance with absolute values may lead to misinterpretation of CBC data. Current Interpretive Data was last revised on 2017. Imm gran pct 1.7 % [facility] Comment: Interpretive Data Percent cell count reference ranges are not reported, since discordance with absolute values may lead to misinterpretation of CBC data. Current Interpretive Data was last revised on 2017. Lymphocyte pct 6.5 % [facility] Comment: Interpretive Data Percent cell count reference ranges are not reported, since discordance with absolute values may lead to misinterpretation of CBC data. Current Interpretive Data was last revised on 2017. Monocyte pct 8.1 % [facility] Comment: Interpretive Data Percent cell count reference ranges are not reported, since discordance with absolute values may lead to misinterpretation of CBC data. Current Interpretive Data was last revised on 2017. Eosinophil pct 0.5 % [facility] Comment: Interpretive Data Percent cell count reference ranges are not reported, since discordance with absolute values may lead to misinterpretation of CBC data. Current Interpretive Data was last revised on 2017. Basophil pct 0.3 % [facility] Comment: Interpretive Data Percent cell count reference ranges are not reported, since discordance with absolute values may lead to misinterpretation of CBC data. Current Interpretive Data was last revised on 2017. Blood 12/31/2024 11:3 4 PM CDT 12/31/2024 11:49 PM CDT us Phi Armstrong MD LAB BLOOD ORDERABLES Fi nal Result [facility] [place] [address] * Critical Result Callback Chemistry (12/31/2024 11:34 PM CDT) Date Notified [id number] Time Notified 221 [facility] TestName Gage POST Called/Read Back Lina POST Credentials RN [facility] Called By BHUPENDRA POST Blood 12/31/2024 11:3 4 PM CDT 01/01/2025 12:12 AM CDT Ezra Avilez MD LAB BLOOD ORDERABL ES Final Result Performing Organization Address City/[facility] Co de Phone Number [facility] [place] [employer] [place] [address] * (ABNORMAL) Thyroid Function Wells (12/31/2024 11:34 PM CDT) TSH 9.79(H) 0.30 - 4.20 mcIUnit/mL Blood 12/31/2024 11:3 4 PM CDT 01/01/2025 12:12 AM CDT us Phi Armstrong MD LAB BLOOD ORDERABLES Fi nal Result Performing Organization Address [facility] Co de Phone Number [facility] Department [place] [address] * (ABNORMAL) Calcium, ionized (12/31/2024 11:34 PM CDT) Calcium, Ionized 4.05(L) 4.50 - 5.10 mg/dL Blood 12/31/2024 11:3 4 PM CDT 12/31/2024 11:46 PM CDT us Phi Armstrong MD LAB BLOOD ORDERABLES Fi nal Result Performing Organization Address City/[facility] [place] [address] * (ABNORMAL) CBC with auto differential (12/31/2024 11:34 PM CDT) WBC 13.75(H) 3.80 - 9.90 K/cumm Hgb 12.2 11.9 - 15.5 g/dL [facility] Hct 33.2(L) 35.6 - 45.5 % [facility] Plt 152 150 - 400 K/cumm [facility] MPV 10.1 9.1 - 12.3 fL [facility] RBC 3.64(L) 3.90 - 5.20 M/cumm [facility] MCV 91.2 81.3 - 96.4 fL [facility] MCH 33.5(H) 27.1 - 33.3 pg [facility] MCHC 36.7(H) 32.3 - 35.7 g/dL [facility] RDW CV 12.7 11.1 - 14.9 % [facility] RDW SD 42.2 35.7 - 48.1 fL [facility] NRBC abs 0.00 0.00 - 0.01 K/cumm [facility] Blood 12/31/2024 11:3 4 PM CDT 12/31/2024 11:49 PM CDT us Phi Armstrong MD LAB BLOOD ORDERABLES Fi nal Result [facility] Department [place] [employer] [place] [address] * (ABNORMAL) Aldolase (12/31/2024 11:34 PM CDT) [facility] Aldolase 24.9(H) 0.1 - 8.0 Units/L Blood 12/31/2024 11:3 4 PM CDT 01/01/2025 12:12 AM CDT us Shannon Rodríguez MD LAB BLOOD ORDERABLES Fin al Result [facility] Department [place] [address] * Rheumatoid factor (12/31/2024 11:34 PM CDT) Pathologist [facility] [place] Rheumatoid factor, quant See Comment 0.1 - 15.0 IUnits/mL Comment: Credited, quantity not sufficient. Telephone report made to: lorna aldridge rn on 01/01/2025 06:36:14 CDT by cdp . Blood 12/31/2024 11:3 4 PM CDT 01/01/2025 12:12 AM CDT Ezra Avilez MD LAB BLOOD ORDERABL ES Final Result Performing Organization Address City/[facility] Co de Phone Number [facility] [place] [employer] [place] [address] * (ABNORMAL) CRP (acute phase) (12/31/2024 11:34 PM CDT) CRP 189.1(H) <=10.0 mg/L Blood 12/31/2024 11:3 4 PM CDT 01/01/2025 12:12 AM CDT Phi Armstrong MD LAB BLOOD ORDERABLES Fi nal Result Performing Organization Address [facility] de Phone Number [facility] [employer] [place] [address] * T4, free (12/31/2024 11:34 PM CDT) Free T4 0.94 0.90 - 1.70 ng/dL Blood 12/31/2024 11:3 4 PM CDT 01/01/2025 12:12 AM CDT Narrative [facility] - 01/01/2025 5:56 AM CDT This test was reflexed from a TSH result. Phi Armstrong MD LAB BLOOD ORDERABLES Fi nal Result Performing Organization Address City/[facility] Co de Phone Number [facility] [place] [address] * Phosphorus (12/31/2024 11:34 PM CDT) [facility] Phosphorus, pl 3.6 2.3 - 4.5 mg/dL Blood 12/31/2024 11:3 4 PM CDT 12/31/2024 11:46 PM CDT Phi Armstrong MD LAB BLOOD ORDERABLES Fi nal Result Performing Organization Address City/[facility] Co de Phone Number [facility] Department [place] [employer] [place] [address] * (ABNORMAL) Osmolality, blood (12/31/2024 11:34 PM CDT) [facility] Osmo 260(C) 275 - 300 mOsm/kg Blood 12/31/2024 11:3 4 PM CDT 01/01/2025 12:12 AM CDT Ezra Avilez MD LAB BLOOD ORDERABL ES Final Result Performing Organization Address [facility] de Phone Number [facility] [employer] [place] [address] * Magnesium (12/31/2024 11:34 PM CDT) [facility] Magnesium 1.9 1.4 - 2.5 mg/dL Blood 12/31/2024 11:3 4 PM CDT 12/31/2024 11:46 PM CDT Phi Armstrong MD LAB BLOOD ORDERABLES Fi nal Result Performing Organization Address [facility] Co de Phone Number [facility] [employer] [place], [place] [id number] * Folate (12/31/2024 11:34 PM CDT) [facility] Folic acid See Comment >=5.0 ng/mL Comment: Credited, quantity not sufficient. Telephone report made to: lorna aldridge rn on 01/01/2025 06:36:14 CDT by cdp . Blood 12/31/2024 11:3 4 PM CDT 01/01/2025 12:12 AM CDT Shannon Rodríguez MD LAB BLOOD ORDERABLES Fin al Result Performing Organization Address City/[facility]/ZIP Co de Phone Number [facility] Department [place] [address] * (ABNORMAL) Creatine kinase (CK), total (12/31/2024 11:34 PM CDT) Pathologist [facility] [place] CK 26(L) 30 - 200 Units/L Blood 12/31/2024 11:3 4 PM CDT 01/01/2025 12:12 AM CDT Shannon Rodríguez MD LAB BLOOD ORDERABLES Fin al Result Performing Organization Address [facility] de Phone Number [facility] [place] [address] * (ABNORMAL) Comprehensive metabolic panel (12/31/2024 11:34 PM CDT) Pathologist [facility] [place] Sodium 127(L) 135 - 145 mmol/L Potassium, pl 3.9 3.3 - 4.9 mmol/L [facility] Chloride 93(L) 97 - 110 mmol/L [facility] CO2 26 22 - 32 mmol/L [facility] Anion gap 8 2 - 15 mmol/L [facility] BUN 13 6 - 25 mg/dL [facility] Creatinine 0.55(L) 0.60 - 1.10 mg/dL [facility] Glucose 113 70 - 199 mg/dL [facility] Comment: Interpretive Data Fasting glucose >/= 126 mg/dl is diagnostic for diabetes. Fasting is defined as no caloric intake for at least 8 hours. Fasting glucose between 100 mg/dl to 125 mg/dl is diagnostic of prediabetes. In a patient with classic symptoms of hyperglycemia or hyperglycemic crisis, a random glucose >/= 200 mg/dl is diagnostic for diabetes. In the absence of unequivocal hyperglycemia, results should be confirmed by repeat testing. The classification and Diagnosis of Diabetes Diabetes Care 2021; 46: S19-S40. Current interpretive data was last revised 2022. Calcium 8.2(L) 8.5 - 10.3 mg/dL [facility] Bilirubin, total 0.5 0.1 - 1.2 mg/dL [facility] Protein, pl 5.8(L) 6.5 - 8.5 g/dL [facility] Albumin 2.4(L) 3.5 - 5.0 g/dL [facility] Alk phos 159(H) 40 - 130 Units/L [facility] ALT 31 7 - 45 Units/L [facility] AST 30 10 - 45 Units/L [facility] Blood 12/31/2024 11:3 4 PM CDT 12/31/2024 11:46 PM CDT us Phi Armstrong MD LAB BLOOD ORDERABLES Fi nal Result [facility] One [facility] Department [place] [address] * (ABNORMAL) Sodium level (12/31/2024 8:22 PM CDT) Sodium 126(L) 135 - 145 mmol/L [facility] ([place]) Blood 12/31/2024 8:22 PM CDT 12/31/2024 8:32 PM CDT Narrative [facility] ([place]) - 12/31/2024 8:[address] law for delta sodium greater than 3 meq between any two consecutive blood draws, or 6 between any 3 consecutive blood draws. us Diogenes Law MD LAB BLOOD ORDERABLES Final Re sult [facility] ([place]) [facility] Department [place] [address] * eGFR (12/31/2024 3:04 AM CDT) eGFR >90 >=60 mL/min/1. 73 m2 Comment: Interpretive Data Reference Interval Normal >/= 90 mL/min/1.73m2 Mildly decreased* 60 - 89 mL/min/1.73m2 Mildly to moderately decreased 45 - 59 mL/min/1.73m2 Moderately to severely decreased 30 - 44 mL/min/1.73m2 Severely decreased 15 - 29 mL/min/1.73m2 Kidney Failure < 15 mL/min/1.73m2 *Relative to young adult level Estimated glomerular filtration rate is determined by the 2020 CKD-EPI equation recommended by the National Kidney Foundation (A Unifying Approach to GFR Estimation: Recommendations of the NKF-ASK Task Force on Reassessing the Inclusion of Race in Diagnosing Kidney Disease, JASN 2020). The CKD-EPI equation should not be used for patients with unstable renal function and has not been validated in children and those over 70. Current interpretive data was last reviewed 2021. Blood 12/31/2024 3:04 AM CDT 12/31/2024 4:04 AM CDT us Diogenes Law MD LAB BLOOD ORDERABLES Final Re sult [facility] ([place]) [facility] Department [place] [address] * (ABNORMAL) Renal function panel (12/31/2024 3:04 AM CDT) Sodium 127(L) 135 - 145 mmol/L [facility] ([place]) Potassium, pl 3.6 3.3 - 4.9 mmol/L [facility] ([place]) Chloride 93(L) 97 - 110 mmol/L [facility] ([place]) CO2 26 22 - 32 mmol/L [facility] ([place]) Anion gap 8 2 - 15 mmol/L [facility] ([place] BUN 17 6 - 25 mg/dL [facility] ([place]) Creatinine 0.58(L) 0.60 - 1.10 mg/dL [facility] ([place]) Glucose 111 70 - 199 mg/dL [facility] ([place]) Comment: Interpretive Data Fasting glucose >/= 126 mg/dl is diagnostic for diabetes. Fasting is defined as no caloric intake for at least 8 hours. Fasting glucose between 100 mg/dl to 125 mg/dl is diagnostic of prediabetes. In a patient with classic symptoms of hyperglycemia or hyperglycemic crisis, a random glucose >/= 200 mg/dl is diagnostic for diabetes. In the absence of unequivocal hyperglycemia, results should be confirmed by repeat testing. The classification and Diagnosis of Diabetes Diabetes Care 202; 46: S19-S40. Current interpretive data was last revised 2022. Calcium 8.5 8.5 - 10.3 mg/dL [facility] ([place]) Phosphorus, pl 2.5 2.3 - 4.5 mg/dL [facility] ([place]) Albumin 2.6(L) 3.5 - 5.0 g/dL [facility] ([place]) Blood 12/31/2024 3:04 AM CDT 12/31/2024 4:04 AM CDT us Diogenes Law MD LAB BLOOD ORDERABLES Final Re sult [facility] ([place]) [facility] Department [place] [address] * XR Hand Left 3 or More Views (12/30/2024 6:09 PM CDT) Anatomical Region Laterality Modality Upper Extremities, Hand Left Computed Radiography 12/30/2024 7:11 PM CDT Narrative 12/30/2024 7:15 PM CDT EXAM DESCRIPTION: XR HAND LEFT 3 OR MORE VIEWS REASON FOR STUDY: Left wrist swelling Left wrist and hand swelling, best images possible TECHNIQUE: Three views COMPARISON: 05/05/2024 FINDINGS: No acute fracture or dislocation. No lytic or destructive process. Severe degenerative change 1st carpometacarpal joint, adjacent intercarpal joints similar to previous. Widening scapholunate interval may indicate ligamentous injury. New from previous, please correlate clinically. Additional moderate degenerative changes 1st through 3rd metacarpophalangeal joints and diffusely through the interphalangeal joints. Soft tissue swelling over the dorsum of the wrist is increased from previous. IMPRESSION: 1. Widening scapholunate interval may indicate ligamentous injury/disruption. New from previous. 2. Severe degenerative changes as above. 3. Soft tissue swelling over the dorsum of the wrist is increased from previous. THIS IS AN ELECTRONICALLY VERIFIED FINAL REPORT 12/30/2024 7:15 PM - Electronically signed by Aleksandar Pearl M.D. RB: RB Report ID: [id number] Reading Location: [id number] Procedure Note Aleksandar Pearl MD - 12/30/2024 EXAM DESCRIPTION: XR HAND LEFT 3 OR MORE VIEWS REASON FOR STUDY: Left wrist swelling Left wrist and hand swelling, best images possible TECHNIQUE: Three views COMPARISON: 05/05/2024 FINDINGS: No acute fracture or dislocation. No lytic or destructive process. Severe degenerative change 1st carpometacarpal joint, adjacent intercarpal joints similar to previous. Widening scapholunate interval may indicate ligamentous injury. New from previous, please correlate clinically. Additional moderate degenerative changes 1st through 3rdmetacarpophalangeal joints and diffusely through the interphalangeal joints. Soft tissue swelling over the dorsum of the wrist is increased fromprevious. IMPRESSION: 1. Widening scapholunate interval may indicate ligamentous injury/disruption. New from previous. 2. Severe degenerative changes as above. 3. Soft tissue swelling over the dorsum of the wrist is increased from previous. THIS IS AN ELECTRONICALLY VERIFIED FINAL REPORT 12/30/2024 7:15 PM - Electronically signed by Aleksandar Pearl M.D. RB: NICO Report ID: [id number] Reading Location: [id number] Demetrio [facility] DO IMG XR PROCEDURES Sheila l Result * (ABNORMAL) Erythrocyte sedimentation rate (12/30/2024 4:55 PM CDT) Erythrocyte sedimentation rate 50(H) 1 - 30 mm/hr Blood 12/30/2024 4:55 PM CDT 12/30/2024 5:24 PM CDT Demetrio Alvarez LAB BLOOD ORDERABLES F inal Result Performing Organization Address [facility] Co de Phone Number [facility] ([place]) [address] [place] [address] * (ABNORMAL) CRP (acute phase) (12/30/2024 4:55 PM CDT) CRP 193.0(H) <=10.0 mg/L [facility] ([place]) Blood 12/30/2024 4:55 PM CDT 12/30/2024 5:24 PM CDT Demetrio Alvarez LAB BLOOD ORDERABLES F inal Result Performing Organization Address [facility] de Phone Number [facility] ([place]) [address] [place] [address] * CT Head WO Contrast (12/30/2024 3:01 PM CDT) Anatomical Region Laterality Modality Head and Neck N/A Computed Tomogra phy 12/30/2024 7:06 PM CDT Narrative 12/30/2024 7:11 PM CDT EXAM DESCRIPTION: CT HEAD WO CONTRAST REASON FOR STUDY: Mental status change Altered mental status today TECHNIQUE: Axial images acquired through the brain without intravenous contrast. Images stored on PACS. Automated exposure control was used as a dose optimization technique for this examination. COMPARISON: 12/28/2024 FINDINGS: BRAIN: No hemorrhage, edema or mass effect. No recent infarct. Normal white matter. Degenerative mineralization basal ganglia unchanged. Right frontal approach ventricular shunt tubing unchanged. EXTRA-AXIAL SPACES: No fluid collections. No masses. CALVARIUM: No fracture. SINUSES/MASTOIDS: No fluid or mucosal thickening. ORBITS: No significant abnormality. OTHER: No other significant abnormality. IMPRESSION: No acute intracranial findings. THIS IS AN ELECTRONICALLY VERIFIED FINAL REPORT 12/30/2024 7:11 PM - Electronically signed by Aleksandar Pearl M.D. RB: NICO Report ID: [id number] Reading Location: [id number] Procedure Note Aleksandar Pearl MD - 12/30/2024 EXAM DESCRIPTION: CT HEAD WO CONTRAST REASON FOR STUDY: Mental status change Altered mental status today TECHNIQUE: Axial images acquired through the brain without intravenous contrast. Images stored on PACS. Automated exposure control was used asa dose optimization technique for this examination. COMPARISON: 12/28/2024 FINDINGS: BRAIN: No hemorrhage, edema or mass effect. No recent infarct. Normal white matter. Degenerative mineralization basal ganglia unchanged. Right frontal approach ventricular shunt tubing unchanged. EXTRA-AXIAL SPACES: No fluid collections. No masses. CALVARIUM: No fracture. SINUSES/MASTOIDS: No fluid or mucosal thickening. ORBITS: No significant abnormality. OTHER: No other significant abnormality. IMPRESSION: No acute intracranial findings. THIS IS AN ELECTRONICALLY VERIFIED FINAL REPORT 12/30/2024 7:11 PM - Electronically signed by Aleksandar Pearl M.D. RB: NICO Report ID: [id number] Reading Location: [id number] Dylan Levy [employer] IMG CT PROCEDURES Final Res ult * Blood culture Blood (12/30/2024 1:45 PM CDT) Report Final Report: No growth Comment:Testing performed by : [facility], [address] [facility], [place]., [address] Blood 12/30/2024 1:45 PM CDT 12/30/2024 5:18 PM CDT [facility] ([place]) - 01/04/2025 7:00 AM CDT From a different site than #1. Collection->Peripheral 1. Blood cultures are incubated for 4 days on a continuously monitored blood culture system. The first report of a negative culture is issued within 24 hours of receipt of the specimen in the laboratory. 2. Positive culture results are reported as soon as they are detected. 3. The most important factor for detection of microbes in the setting of bloodstream infection is the volume of blood submitted for culture. Failure to collect an optimal blood volume can result in false negative blood cultures. 4. For pediatric patients, the recommended blood volume to collect follows a weight based strategy. See the electronic test catalog for collection instructions. 5. For positive blood cultures, a rapid molecular test may be performed for organism identification using the chioma ePlex blood culture identification panel for gram positive (BCID-GP) and gram negative (BCID-GN) organisms. This nucleic acid amplification test detects microbial DNA in positive blood culture broth. This assay has been cleared by the [place] Food and Drug Administration and its performance characteristics have been verified by the [facility]. For questions about this culture, contact the Microbiology Laboratory at [phone]. Interpretive data was last revised on 24. us Harsh Saldaña MD LAB MICROBIOLOGY - G ENERAL ORDERABLES Final Result [facility] ([place]) [facility] Department [place] [address] * Blood culture Blood (12/30/2024 12:49 PM CDT) Report Final Report: No growth Comment:Testing performed by : [facility], [address] [place]., [address] Blood 12/30/2024 12:4 9 PM CDT 12/30/2024 5:18 PM CDT Narrative [facility] ([place]) - 01/04/2025 7:00 AM CDT Collection->Peripheral 1. Blood cultures are incubated for 4 days on a continuously monitored blood culture system. The first report of a negative culture is issued within 24 hours of receipt of the specimen in the laboratory. 2. Positive culture results are reported as soon as they are detected. 3. The most important factor for detection of microbes in the setting of bloodstream infection is the volume of blood submitted for culture. Failure to collect an optimal blood volume can result in false negative blood cultures. 4. For pediatric patients, the recommended blood volume to collect follows a weight based strategy. See the electronic test catalog for collection instructions. 5. For positive blood cultures, a rapid molecular test may be performed for organism identification using the chioma ePlex blood culture identification panel for gram positive (BCID-GP) and gram negative (BCID-GN) organisms. This nucleic acid amplification test detects microbial DNA in positive blood culture broth. This assay has been cleared by the [place] Food and Drug Administration and its performance characteristics have been verified by the [facility]. For questions about this culture, contact the Microbiology Laboratory at [phone]. Interpretive data was last revised on 24. us Harsh Saldaña MD LAB MICROBIOLOGY - G ENERAL ORDERABLES Final Result [facility] [place] [facility] Department [place] [address] * EMG/NCV - (12/30/2024 12:00 PM CDT) Anatomical Region Laterality Modality Other Impressions 12/30/2024 12:00 PM CDT History: This is a 79 years old patient being evaluated for weakness of bilateral upper and lower extremities. Nerve conduction studies: Left median motor nerve conduction study showed normal DML, slightly low l CMAP amplitude, normal motor nerve conduction velocity and normal F wave latency. Bilateral peroneal motor nerve conduction studies when recording from EDB showed normal DMLs, normal CMAP amplitudes, normal motor nerve conduction velocities and normal F wave latencies. Bilateral peroneal motor nerve conduction studies when recording from tibialis anterior showed normal DMLs, normal CMAP amplitudes, normal motor nerve conduction velocities. Bilateral tibial motor nerve conduction studies showed normal DMLs, normal CMAP amplitudes, normal motor nerve conduction velocities and normal F wave latencies. Bilateral sural antidromic sensory nerve conduction studies did not induce any response. Bilateral superficial peroneal antidromic sensory nerve conduction studies showed normal SNAP peak latencies, normal amplitudes and normal sensory nerve conduction velocities. Left medial plantar and left lateral plantar l antidromic sensory nerve conduction studies did not produce any response. Right median plantar antidromic sensory nerve conduction study showed normal SNAP peak latency, very low amplitude and normal sensory nerve conduction velocity. Right lateral plantar antidromic sensory nerve conduction study did not induce any response. Impression: This is an abnormal study. There was electrophysiologic evidence suggestive of: 1. Absent response from bilateral sural sensory nerve. 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 2. Absent response from left median plantar and left lateral plantar sensory nerve. Very low amplitude with right median plantar and right lateral plantar sensory nerve. The significance of the finding is unknown. It may be secondary to technical difficulty. 3. Patient refused bilateral upper extremity study after she had left median motor nerve conduction study. The left median motor nerve conduction study showed slightly low CMAP amplitude. The significance is unknown. May be secondary to technical difficulty or represent slight left median axonal motor neuropathy. The clinical correlation is recommended. us Dylan Levy NP NEUROLOGY ORDERABLES Final Result * Osmolality, urine (12/30/2024 5:07 AM CDT) Osmo, ur 661 mOsm/kg Comment:Testing performed by : [facility], [address] [facility], [place]., [address] Urine 12/30/2024 5:07 AM CDT 12/30/2024 10:45 AM CDT us Diogenes Law MD LAB URINE ORDERABLES Final Re sult [facility] [place] [facility] Department [place] [address] * eGFR (12/30/2024 3:00 AM CDT) eGFR >90 >=60 mL/min/1. 73 m2 Comment: Interpretive Data Reference Interval Normal >/= 90 mL/min/1.73m2 Mildly decreased* 60 - 89 mL/min/1.73m2 Mildly to moderately decreased 45 - 59 mL/min/1.73m2 Moderately to severely decreased 30 - 44 mL/min/1.73m2 Severely decreased 15 - 29 mL/min/1.73m2 Kidney Failure < 15 mL/min/1.73m2 *Relative to young adult level Estimated glomerular filtration rate is determined by the 2020 CKD-EPI equation recommended by the National Kidney Foundation (A Unifying Approach to GFR Estimation: Recommendations of the NKF-ASK Task Force on Reassessing the Inclusion of Race in Diagnosing Kidney Disease, JASN 2020). The CKD-EPI equation should not be used for patients with unstable renal function and has not been validated in children and those over 70. Current interpretive data was last reviewed 2021. Blood 12/30/2024 3:00 AM CDT 12/30/2024 4:10 AM CDT us Jose Luis Persaud MD LAB BLOOD ORDERABLES Fi nal Result [facility] ([place]) [address] [facility] Department [place] [address] * (ABNORMAL) Differential, auto (12/30/2024 3:00 AM CDT) Neutrophil abs 10.33(H) 1.50 - 6.50 K/cumm Imm gran abs 0.15(H) 0.00 - 0.10 K/cumm [facility] ([place]) Lymphocyte abs 0.55(L) 0.80 - 3.30 K/cumm [facility] ([place]) Monocyte abs 1.10(H) 0.20 - 0.80 K/cumm [facility] ([place]) Eosinophil abs 0.04 0.00 - 0.50 K/cumm [facility] ([place]) Basophil abs 0.02 0.00 - 0.10 K/cumm [facility] ([place]) Neutrophil pct 84.8 % [facility] ([place]) Comment: Interpretive Data Percent cell count reference ranges are not reported, since discordance with absolute values may lead to misinterpretation of CBC data. Current Interpretive Data was last revised on 2017. Imm gran pct 1.2 % [facility] ([place]) Comment: Interpretive Data Percent cell count reference ranges are not reported, since discordance with absolute values may lead to misinterpretation of CBC data. Current Interpretive Data was last revised on 2017. Lymphocyte pct 4.5 % [facility] ([place]) Comment: Interpretive Data Percent cell count reference ranges are not reported, since discordance with absolute values may lead to misinterpretation of CBC data. Current Interpretive Data was last revised on 2017. Monocyte pct 9.0 % [facility] ([place]) Comment: Interpretive Data Percent cell count reference ranges are not reported, since discordance with absolute values may lead to misinterpretation of CBC data. Current Interpretive Data was last revised on 2017. Eosinophil pct 0.3 % [facility] ([place]) Comment: Interpretive Data Percent cell count reference ranges are not reported, since discordance with absolute values may lead to misinterpretation of CBC data. Current Interpretive Data was last revised on 2017. Basophil pct 0.2 % [facility] ([place]) Comment: Interpretive Data Percent cell count reference ranges are not reported, since discordance with absolute values may lead to misinterpretation of CBC data. Current Interpretive Data was last revised on 2017. Blood 12/30/2024 3:00 AM CDT 12/30/2024 4:09 AM CDT us Jose Luis Persaud MD LAB BLOOD ORDERABLES Fi nal Result [facility] ([place]) [facility] Department [place] [address] * (ABNORMAL) CBC with auto differential (12/30/2024 3:00 AM CDT) WBC 12.19(H) 3.80 - 9.90 K/cumm Hgb 11.0(L) 11.9 - 15.5 g/dL [facility] ([place]) Hct 31.7(L) 35.6 - 45.5 % [facility] ([place]) Plt 89(L) 150 - 400 K/cumm [facility] ([place]) MPV 10.8 9.1 - 12.3 fL [facility] ([place]) RBC 3.32(L) 3.90 - 5.20 M/cumm [facility] ([place]) MCV 95.5 81.3 - 96.4 fL [facility] ([place] MCH 33.1 27.1 - 33.3 pg [facility] ([place]) MCHC 34.7 32.3 - 35.7 g/dL [facility] ([place]) RDW CV 12.5 11.1 - 14.9 % [facility] ([place]) RDW SD 43.8 35.7 - 48.1 fL [facility] ([place]) NRBC abs 0.00 0.00 - 0.01 K/cumm [facility] ([place] Blood 12/30/2024 3:00 AM CDT 12/30/2024 4:09 AM CDT Jose Luis Persaud MD LAB BLOOD ORDERABLES Fi nal Result [facility] [address] [place] [address] * Phosphorus (12/30/2024 3:00 AM CDT) Phosphorus, pl 2.8 2.3 - 4.5 mg/dL [facility] ([place]) Blood 12/30/2024 3:00 AM CDT 12/30/2024 4:10 AM CDT Jose Luis Persaud MD LAB BLOOD ORDERABLES Fi nal Result [facility] ([place]) [address] [facility] [place] [address] * (ABNORMAL) Comprehensive metabolic panel (12/30/2024 3:00 AM CDT) Sodium 130(L) 135 - 145 mmol/L [facility] ([place]) Potassium, pl 4.0 3.3 - 4.9 mmol/L [facility] ([place]) Chloride 96(L) 97 - 110 mmol/L [facility] ([place]) CO2 23 22 - 32 mmol/L [facility] ([place]) Anion gap 11 2 - 15 mmol/L [facility] ([place]) BUN 22 6 - 25 mg/dL [facility] ([place]) Creatinine 0.58(L) 0.60 - 1.10 mg/dL [facility] ([place]) Glucose 105 70 - 199 mg/dL [facility] ([place]) Comment: Interpretive Data Fasting glucose >/= 126 mg/dl is diagnostic for diabetes. Fasting is defined as no caloric intake for at least 8 hours. Fasting glucose between 100 mg/dl to 125 mg/dl is diagnostic of prediabetes. In a patient with classic symptoms of hyperglycemia or hyperglycemic crisis, a random glucose >/= 200 mg/dl is diagnostic for diabetes. In the absence of unequivocal hyperglycemia, results should be confirmed by repeat testing. The classification and Diagnosis of Diabetes Diabetes Care 202; 46: S19-S40. Current interpretive data was last revised 2022. Calcium 8.6 8.5 - 10.3 mg/dL [facility] ([place]) Bilirubin, total 0.3 0.1 - 1.2 mg/dL [facility] ([place]) Protein, pl 5.1(L) 6.5 - 8.5 g/dL [facility] ([place]) Albumin 2.5(L) 3.5 - 5.0 g/dL [facility] ([place]) Alk phos 119 40 - 130 Units/L [facility] ([place]) ALT 19 7 - 45 Units/L [facility] ([place]) AST 19 10 - 45 Units/L [facility] ([place]) Blood 12/30/2024 3:00 AM CDT 12/30/2024 4:10 AM CDT us Jose Luis Persaud MD LAB BLOOD ORDERABLES Fi nal Result [facility] ([place]) [facility] Department of Laboratories [place], [place] [id number] * Legionella antigen Urine (12/29/2024 5:51 PM CDT) Legionella Ag Negative Negative Comment: Interpretive Data This test detects only Legionella pneumophila serogroup 1 antigen. Current interpretive data was last revised on 2019. Testing performed by: [facility], [address], [place]., [address] Urine 12/29/2024 5:51 PM CDT 12/30/2024 9:14 AM CDT Demetrio Alvarez DO LAB MICROBIOLOGY - GEN ERAL ORDERABLES Final Result Performing Organization Address City/[facility]/ZIP Co de Phone Number [facility] ([place]) [address] [facility] Department [place] [address] * Osmolality, urine (12/29/2024 5:51 PM CDT) Osmo, ur 448 mOsm/kg Comment:Testing performed by : [facility], [address] [place] [address]., [address] Urine 12/29/2024 5:51 PM CDT 12/30/2024 10:45 AM CDT us Diogenes Law MD LAB URINE ORDERABLES Final Re sult Performing Organization Address City/[facility]/ZIP Co de Phone Number [facility] ([place]) 1 [facility] [place] [address] * [place] Fluoro Guided Lumbar Puncture (12/29/2024 3:44 PM CDT) Anatomical Region Laterality Modality Spine Right Radio Fluoroscop y 12/29/2024 3:41 PM CDT Narrative 12/29/2024 3:45 PM CDT EXAM DESCRIPTION: FL FLUORO GUIDED LUMBAR PUNCTURE REASON FOR STUDY: Worsening mental status. Neuro recommended as well. Would like opening pressure obtained as well as labs. COMPARISON: 12/27/2024 RADIATION DOSE: Dose: 0.3440 mGycm2 Dose Area Product (DAP) TECHNIQUE: Fluoroscopy guided diagnostic lumbar puncture. PROCEDURE/FINDINGS: Informed written consent was obtained from the patient or patient career representative after risks and benefits were discussed. After fluoroscopic localization, sterile skin prep was performed with Betadine. Local Anesthesia performed with 1% Lidocaine. Using fluoroscopic guidance, a 22-gauge spinal needle was advanced to the thecal sac via paracentral approach at the L3-L4 level. A total of 0.5 mL of yellow CSF was collected in 1 vial and sent to pathology for evaluation. The stylet was replaced and subsequently the needle was removed and a bandage applied. Needle placement was documented with fluoroscopic images. No immediate neurologic changes or complications. Discharge instructions were provided. Estimated blood loss: <5 mL IMPRESSION: 1. Lumbar puncture was attempted under fluoroscopic guidance with collection of 0.5 mL of yellow-colored CSF fluid. No additional fluid could be obtained despite multiple attempts at repositioning needle. Findings were discussed with Dr. Alvarez by Dr. Anderson at 1530 hours on 12/29/2024 . THIS IS AN ELECTRONICALLY VERIFIED FINAL REPORT 12/29/2024 3:45 PM - Electronically signed by James Anderson D.O. PS: PS Report ID: [id number] Reading Location: [id number] Procedure Note James Anderson, - 12/29/2024 EXAM DESCRIPTION: FL FLUORO GUIDED LUMBAR PUNCTURE REASON FOR STUDY: Worsening mental status. Neuro recommended as well.Would like opening pressure obtained as well as labs. COMPARISON: 12/27/2024 RADIATION DOSE: Dose: 0.3440 mGycm2 Dose Area Product (DAP) TECHNIQUE: Fluoroscopy guided diagnostic lumbar puncture. PROCEDURE/FINDINGS: Informed written consent was obtained from the patient or patient career representative after risks and benefits were discussed. Afterfluoroscopic localization, sterile skin prep was performed with Betadine. LocalAnesthesia performed with 1% Lidocaine. Using fluoroscopic guidance, a 22-gaugespinal needle was advanced to the thecal sac via paracentral approach at theL3-L4 level. A total of 0.5 mL of yellow CSF was collected in 1 vial and sentto pathology for evaluation. The stylet was replaced and subsequently theneedle was removed and a bandage applied. Needle placement was documented with fluoroscopic images. No immediate neurologic changes or complications. Discharge instructions were provided. Estimated blood loss: <5 mL IMPRESSION: 1. Lumbar puncture was attempted under fluoroscopic guidance withcollection of 0.5 mL of yellow-colored CSF fluid. No additional fluid could beobtained despite multiple attempts at repositioning needle. Findings were discussed with Dr. Alvarez by Dr. Anderson at 1530 hourson 12/29/2024 . THIS IS AN ELECTRONICALLY VERIFIED FINAL REPORT 12/29/2024 3:45 PM - Electronically signed by James Anderson D.O. PS: PS Report ID: [id number] Reading Location: [place] [address] us Demetrio Alvarez DO IMG FLUOROSCOPY PROCED URES Final Result * Cell Differential, CSF (12/29/2024 3:30 PM CDT) Total cells diffed 43 % Comment: Interpretive Data Unless otherwise specified, the reference range and other method performance specifications have not been established for CSF/Body Fluid tests. The test results should be integrated into the clinical context for interpretation. Current interpretive data was last revised on 2018. Neutrophils, CSF 37 % [facility]) Lymphs, CSF 2 % [facility] ([place]) Monos, CSF 4 % [facility]) Unidentified cells, CSF See comment 0 - 0 % [facility] ([place]) Comment:Tube #1 used for dif f. Visibly bloody specimen, <0.5 mL of sample received. CSF 12/29/2024 3:30 PM CDT 12/29/2024 4:15 PM CDT us Demetrio Alvarez DO LAB BODY FLUIDS AND ST OOLS ORDERABLES Final Result [facility]) [facility] Department [place] [address] * US Vein Duplex Lower Extremity Bilateral Complete (12/29/2024 2:30 PM CDT) Anatomical Region Laterality Modality Vascular Bilateral Ultrasound 12/29/2024 3:37 PM CDT Narrative 12/29/2024 3:38 PM CDT EXAM DESCRIPTION: US VEIN DUPLEX LOWER EXTREMITY BILATERAL COMPLETE REASON FOR STUDY: Back pain and shortness of breath since 12/27/2024. Concern for deep vein thrombosis and pulmonary embolus. TECHNIQUE: Grayscale, color and spectral Doppler imaging of the deep venous system of the bilateral lower extremities was performed. Images stored on PACS. COMPARISON: None FINDINGS: The common femoral, common femoral-saphenous vein confluence, visualized profunda femoral, superficial femoral, and popliteal veins are readily compressible bilaterally with no intraluminal thrombus on wynne scale images. There is normal color and spectral Doppler signal, including augmentation. Greater saphenous vein appears patent. Visualized calf veins are patent. IMPRESSION: No lower extremity deep venous thrombosis. THIS IS AN ELECTRONICALLY VERIFIED FINAL REPORT 12/29/2024 3:38 PM - Electronically signed by Sukhdev Leon M.D. KT: NOEMI Report ID: [id number] Reading Location: [place] [address] Procedure Note Sukhdev Leon MD - 12/29/2024 EXAM DESCRIPTION: US VEIN DUPLEX LOWER EXTREMITY BILATERAL COMPLETE REASON FOR STUDY: Back pain and shortness of breath since 12/27/2024. Concern for deep vein thrombosis and pulmonary embolus. TECHNIQUE: Grayscale, color and spectral Doppler imaging of the deepvenous system of the bilateral lower extremities was performed. Images stored onPACS. COMPARISON: None FINDINGS: The common femoral, common femoral-saphenous vein confluence, visualized profunda femoral, superficial femoral, and popliteal veins are readily compressible bilaterally with no intraluminal thrombus on wynne scaleimages. There is normal color and spectral Doppler signal, including augmentation. Greater saphenous vein appears patent. Visualized calf veins are patent. IMPRESSION: No lower extremity deep venous thrombosis. THIS IS AN ELECTRONICALLY VERIFIED FINAL REPORT 12/29/2024 3:38 PM - Electronically signed by Sukhdev Leon M.D. KT: NOEMI Report ID: [id number] Reading Location: [id number] Demetrio Brenner [facility] DO IMG US PROCEDURES Sheila l Result * Protime-INR (12/29/2024 11:54 AM CDT) PT 12.4 10.2 - 13.5 sec [facility] INR 1.10 0.90 - 1.20 [facility] Comment: Interpretive data Oral anticoagulant therapeutic ranges: Venous thromboembolism prophylaxis or treatment: 2.0-3.0 CARDIOLOGY Standard range: 2.0-3.0 High-intensity range: 2.5-3.5 Refer to indication-specific guidelines for appropriate target ranges for prosthetic heart valve replacement. Current interpretive data was last revised on 2019. Blood 12/29/2024 11:5 4 AM CDT 12/29/2024 11:58 AM CDT us Demetrio Brenner [facility] LAB BLOOD ORDERABLES F inal Result [facility] [address] [place] [address] Department [place] [address] * Clinical pathology report (12/29/2024 11:23 AM CDT) Miscellaneous 12/29/2024 11: 23 AM CDT 12/29/2024 11:23 AM CDT Narrative 12/29/2024 11:47 AM CDT EPIC results best viewed via link to PDF [facility] Department of Pathology [address] [place] [id number] Final Report Note to Patients: This report may contain a detailed description of human tissue sent by a health care provider to the laboratory for pathologic evaluation. The content of this report is essential for diagnosis and may provide important critical findings. This information may be unfamiliar to patients to review without a medical professional present. It is advised that the patient review this report in the presence of a health care provider who can answer questions and explain the details. Patient Name: VENKATESH ZALDIVAR Address: [address] [place] [address] Gender: F : 1945 (Age: 79) Service: Medical Location: [facility] #: [id number] Patient Type: [facility] Taken: 12/29/2024 Received: 12/29/2024 Accessioned: 12/29/2024 Physician(s): Demetrio Alvarez DO Specimen(s) Received A: Blood Peripheral Blood Smear ReviewReported:12/29/2024 Cytomorphologic examination of the peripheral blood smear largely confirms the provided CBC data. The CBC indices include WBC 13.53, RBC 3.29, HGB 10.8, HCT 31.1, MCV 94.5 and platelets of 69. The white blood cells are increased in number and this increase appears to be driven predominantly by mature polysegmented neutrophils. A differential shows 85% neutrophils, 6% lymphocytes, 8% monocytes and 1% bands. The red blood cells show minimal anisopoikilocytosis and polychromasia. Platelets appear to be decreased in number but are predominantly normal in morphology. Overall the findings are consistent with leukocytosis/granulocytosis with an absolute increase in neutrophils, mild absolute increase in non-blast immature granulocytes, mild absolute increase in monocytes and absolute decrease in lymphocytes. Normocytic anemia and thrombocytopenia are also present. If a hematopoietic disorder is suspected clinically then correlation with flow cytometric analysis and/or cytogenetic/molecular studies is recommended. Clinical correlation is required. Interpretation: Peripheral blood smear -Leukocytosis/granulocytosis with an absolute increase in neutrophils -Mild absolute increase in monocytes -Absolute decrease in lymphocytes -Normocytic anemia -Thrombocytopenia -See description Samy Bonilla MD PhDReport Electronically Reviewed and Signed Out By Samy Bonilla MD PhD 12/29/2024 11:45:37 The performance characteristics of some immunohistochemical stains, fluorescence in-situ hybridization tests and immunophenotyping by flow cytometry cited in this report (if any) were determined by the Surgical Pathology Department at [facility] as part of an ongoing quality control engineer program and in compliance with federally mandated regulations drawn from the Clinical Laboratory Improvement Act of 1988 (CLIA '88). Some of these tests rely on the use of analyte specific reagents and are subject to specific labeling requirements by the US Food and Drug Administration. Such diagnostic tests may only be performed in a facility that is certified by the Department of Health and Human Services as a high complexity laboratory under CLIA '88. The FDA has determined that such clearance or approval is not necessary. This test is used for clinical purposes. It should not be regarded as investigational or for research. Nevertheless, federal rules concerning the medical use of analyte specific reagents require that the following disclaimer be attached to the report: This test was developed and its performance characteristics determined by the Surgical Pathology Department [facility]. It has not been cleared or approved by the U. S. Food and Drug Administration. REPORT IMAGES AND SCANNED DOCUMENTS, IF INCLUDED, ONLY VIEWABLE IN PDF VERSION OF REPORTe o Demetrio Alvarez DO LAB PATHOLOGY ORDERABL ES Final Result * (ABNORMAL) Procalcitonin (12/29/2024 9:38 AM CDT) Procalcitonin 2.84(H) <=0.25 ng/mL Comment:Testing performed by : [facility], [address] [place] [address]., [address] Blood 12/29/2024 9:38 AM CDT 12/30/2024 12:52 PM CDT Don Ford DO LAB BLOOD ORDERABLES Sheila l Result [facility] Department [place] [address] * Ehrlichia and Anaplasma PCR Blood (12/29/2024 9:38 AM CDT) Ehrlichia species DNA Not Detected Not Detected [facility] Comment:Testing performed by : [facility], [address] [facility]., [address] Anaplasma Phagocytophilum DNA Not Detected Not Detected [facility] ([place]) Comment: This assay tests for the presence of Anaplasma phagocytophilum, Ehrlichia chaffeensis, Ehrlichia ewingii and Ehrlichia canis. This test is laboratory developed and its performance characteristics were determined by the performing laboratory in a manner consistent with CLIA requirements. This test has not been cleared or approved by the U.S. Food and Drug Administration. Testing performed by: [facility], [address] [facility]., [address] Blood 12/29/2024 9:38 AM CDT 12/29/2024 12:21 PM CDT Demetrio Alvarez DO LAB MICROBIOLOGY - GEN ERAL ORDERABLES Final Result Performing Organization Address City/[facility]/ZIP Co de Phone Number [facility] ([place]) [address] [place] [address] [facility] * HIT Antibodies with Reflex to Serotonin Release Assay (SALTY) (12/29/2024 9:38 AM CDT) Pathologist [facility] [place] HIT antibodies Negative Negative Comment:Testing performed by : [facility], [address] [place]., [address] HIT Ab LIANNE Units 0.38 0.00 - 0.99 units/mL [facility] Comment: A positive HIT Ab (heparin PF4 antibody LIANNE test) is extremely sensitive for heparin-induced thrombocytopenia (HIT), but not specific, since many patients exposed to heparin have positive antibody tests without developing HIT. Higher HIT Ab LIANNE Units are associated with a higher likelihood of a positive serotonin release assay (SALTY) and a clinical course consistent with HIT. The 4T scoring system is a useful tool for pretest probability of HIT (Cuker et al, Blood 2012;120:4160). Both laboratory testing and clinical risk evaluation should be considered in determining an individual patient s risk of HIT. Testing performed by: [facility], [address] [place]., [address] Blood 12/29/2024 9:38 AM CDT 12/29/2024 12:57 PM CDT Demetrio Alvarez DO LAB BLOOD ORDERABLES F inal Result [facility] ([place]) [address] [place] [address] * Lyme Disease Antibody with Reflex Immunoblot Blood (12/29/2024 9:38 AM CDT) Pathologist [facility] [place] Lyme Ab Negative Negative [place] [facility] Comment: No evidence of antibodies to B. burgdorferi detected. False negative results may occur in recently infected patients (<=2 weeks) due to low or undetectable antibody levels to B. burgdorferi. If recent exposure is suspected, a second sample should be collected and tested in 2-4 weeks. Test Performed by: [facility] [address] [id number] [place] Professor: Jorge Luis Ledezma Ph.D.; CLIA# [id number] Blood 12/29/2024 9:38 AM CDT 12/29/2024 9:42 AM CDT Demetrio Alvarez DO LAB MICROBIOLOGY - GEN ERAL ORDERABLES Final Result Performing Organization Address City/[facility]/ZIP Co de Phone Number [facility] [address] [facility] Department [place] [address] [place] ref [facility] * Lactate dehydrogenase (LD) (12/29/2024 9:38 AM CDT) [facility] Lactate dehydrogenase (LDH) 194 100 - 250 Units/L [facility] ([place] Blood 12/29/2024 9:38 AM CDT 12/29/2024 9:43 AM CDT Demetrio Alvarez DO LAB BLOOD ORDERABLES F inal Result Performing Organization Address City/[facility]/ZIP Co de Phone Number [facility]) [address] [place] [address] * (ABNORMAL) Haptoglobin (12/29/2024 9:38 AM CDT) [facility] Haptoglobin 262(H) 30 - 200 mg/dL Comment: Hemolysis present. Results may be affected. Testing performed by: [facility], [address] [place] [address], [place]., [address] Blood 12/29/2024 9:38 AM CDT 12/29/2024 11:52 AM CDT Demetrio Alvarez DO LAB BLOOD ORDERABLES F inal Result Performing Organization Address City/[facility]/ZIP Co de Phone Number [facility] [address] [place] [address] * (ABNORMAL) Ferritin (12/29/2024 9:38 AM CDT) Ferritin 806(H) 13 - 150 ng/mL [facility]) Blood 12/29/2024 9:38 AM CDT 12/29/2024 9:43 AM CDT us Demetrio Alvarez DO LAB BLOOD ORDERABLES F inal Result Performing Organization Address [facility] Co de Phone Number [facility] ([place]) [address] [place] [address] * eGFR (12/29/2024 5:32 AM CDT) eGFR >90 >=60 mL/min/1. 73 m2 Comment: Interpretive Data Reference Interval Normal >/= 90 mL/min/1.73m2 Mildly decreased* 60 - 89 mL/min/1.73m2 Mildly to moderately decreased 45 - 59 mL/min/1.73m2 Moderately to severely decreased 30 - 44 mL/min/1.73m2 Severely decreased 15 - 29 mL/min/1.73m2 Kidney Failure < 15 mL/min/1.73m2 *Relative to young adult level Estimated glomerular filtration rate is determined by the 2020 CKD-EPI equation recommended by the National Kidney Foundation (A Unifying Approach to GFR Estimation: Recommendations of the NKF-ASK Task Force on Reassessing the Inclusion of Race in Diagnosing Kidney Disease, JASN 2020). The CKD-EPI equation should not be used for patients with unstable renal function and has not been validated in children and those over 70. Current interpretive data was last reviewed 2021. Blood 12/29/2024 5:32 AM CDT 12/29/2024 5:36 AM CDT us Jose Luis Persaud MD LAB BLOOD ORDERABLES Fi nal Result Performing Organization Address City/[facility]/ZIP Co de Phone Number [facility] Department [place] [address] * (ABNORMAL) Phosphorus (12/29/2024 5:32 AM CDT) Phosphorus, pl 1.4(L) 2.3 - 4.5 mg/dL [facility]) Blood 12/29/2024 5:32 AM CDT 12/29/2024 5:36 AM CDT Jose Luis Persaud MD LAB BLOOD ORDERABLES Fi nal Result Performing Organization Address City/[facility]/ZIP Co de Phone Number [facility]) [facility] [place] [employer] [place] [address] * (ABNORMAL) Comprehensive metabolic panel (12/29/2024 5:32 AM CDT) Sodium 129(L) 135 - 145 mmol/L [facility] ([place]) Potassium, pl 4.0 3.3 - 4.9 mmol/L [facility]) Chloride 98 97 - 110 mmol/L [facility]) CO2 23 22 - 32 mmol/L [facility]) Anion gap 8 2 - 15 mmol/L [facility]) BUN 21 6 - 25 mg/dL [facility]) Creatinine 0.55(L) 0.60 - 1.10 mg/dL [facility]) Glucose 131 70 - 199 mg/dL [facility]) Comment: Interpretive Data Fasting glucose >/= 126 mg/dl is diagnostic for diabetes. Fasting is defined as no caloric intake for at least 8 hours. Fasting glucose between 100 mg/dl to 125 mg/dl is diagnostic of prediabetes. In a patient with classic symptoms of hyperglycemia or hyperglycemic crisis, a random glucose >/= 200 mg/dl is diagnostic for diabetes. In the absence of unequivocal hyperglycemia, results should be confirmed by repeat testing. The classification and Diagnosis of Diabetes Diabetes Care 2021; 46: S19-S40. Current interpretive data was last revised 2022. Calcium 8.6 8.5 - 10.3 mg/dL [facility]) Bilirubin, total 0.4 0.1 - 1.2 mg/dL [facility] ([place]) Protein, pl 5.1(L) 6.5 - 8.5 g/dL [facility]) Albumin 2.7(L) 3.5 - 5.0 g/dL [facility]) Alk phos 110 40 - 130 Units/L [facility]) ALT 21 7 - 45 Units/L [facility] AST 20 10 - 45 Units/L [facility]) Blood 12/29/2024 5:32 AM CDT 12/29/2024 5:36 AM CDT us Jose Luis Persaud MD LAB BLOOD ORDERABLES Fi nal Result [facility] ([place]) [address] [place] [address] * Slide review - pathologist (12/28/2024 11:56 PM CDT) Slide review by Dr. Bonilla Comment: Interpretive Data See Clinical Pathology Report under Media section in [employer]. Current Interpretive Data was last revised on 2018. Blood 12/28/2024 11:5 6 PM CDT 12/29/2024 8:41 AM CDT us Demetrio Alvarez DO LAB BLOOD ORDERABLES F inal Result [facility] ([place]) [address] [place] [address] * (ABNORMAL) Differential, auto (12/28/2024 11:56 PM CDT) Neutrophil abs 11.62(H) 1.50 - 6.50 K/cumm Imm gran abs 0.13(H) 0.00 - 0.10 K/cumm [facility] Lymphocyte abs 0.31(L) 0.80 - 3.30 K/cumm [facility]) Monocyte abs 1.40(H) 0.20 - 0.80 K/cumm [facility]) Eosinophil abs 0.01 0.00 - 0.50 K/cumm [facility] ([place]) Basophil abs 0.06 0.00 - 0.10 K/cumm [facility]) Neutrophil pct 85.9 % [facility] ([place]) Comment: Interpretive Data Percent cell count reference ranges are not reported, since discordance with absolute values may lead to misinterpretation of CBC data. Current Interpretive Data was last revised on 2017. Imm gran pct 1.0 % [facility]) Comment: Interpretive Data Percent cell count reference ranges are not reported, since discordance with absolute values may lead to misinterpretation of CBC data. Current Interpretive Data was last revised on 2017. Lymphocyte pct 2.3 % [facility] Comment: Interpretive Data Percent cell count reference ranges are not reported, since discordance with absolute values may lead to misinterpretation of CBC data. Current Interpretive Data was last revised on 2017. Monocyte pct 10.3 % [facility] Comment: Interpretive Data Percent cell count reference ranges are not reported, since discordance with absolute values may lead to misinterpretation of CBC data. Current Interpretive Data was last revised on 2017. Eosinophil pct 0.1 % [facility] Comment: Interpretive Data Percent cell count reference ranges are not reported, since discordance with absolute values may lead to misinterpretation of CBC data. Current Interpretive Data was last revised on 2017. Basophil pct 0.4 % [facility] Comment: Interpretive Data Percent cell count reference ranges are not reported, since discordance with absolute values may lead to misinterpretation of CBC data. Current Interpretive Data was last revised on 2017. Blood 12/28/2024 11:5 6 PM CDT 12/29/2024 1:19 AM CDT Jose Luis Persaud MD LAB BLOOD ORDERABLES Fi nal Result [facility] [address] [facility] [place] [address] * (ABNORMAL) CBC with auto differential (12/28/2024 11:56 PM CDT) WBC 13.53(H) 3.80 - 9.90 K/cumm Hgb 10.8(L) 11.9 - 15.5 g/dL [facility] Hct 31.1(L) 35.6 - 45.5 % [facility]) Plt 69(L) 150 - 400 K/cumm [facility]) MPV 10.7 9.1 - 12.3 fL [facility]) RBC 3.29(L) 3.90 - 5.20 M/cumm [facility]) MCV 94.5 81.3 - 96.4 fL [facility]) MCH 32.8 27.1 - 33.3 pg [facility]) MCHC 34.7 32.3 - 35.7 g/dL [facility]) RDW CV 12.3 11.1 - 14.9 % [facility]) RDW SD 43.4 35.7 - 48.1 fL [facility]) NRBC abs 0.00 0.00 - 0.01 K/cumm [facility]) Blood 12/28/2024 11:5 6 PM CDT 12/29/2024 1:19 AM CDT us Jose Luis Persaud MD LAB BLOOD ORDERABLES Fi nal Result [facility] 1 [facility] [place] [address] * (ABNORMAL) Sodium level (12/28/2024 11:55 PM CDT) Sodium 128(L) 135 - 145 mmol/L [facility]) Blood 12/28/2024 11:5 5 PM CDT 12/29/2024 12:03 AM CDT us Demetrio Alvarez DO LAB BLOOD ORDERABLES F inal Result [facility] ([place]) [facility] [place] [address] * CT Head WO Contrast (12/28/2024 8:52 PM CDT) Anatomical Region Laterality Modality Head and Neck N/A Computed Tomogra phy 12/29/2024 4:40 AM CDT Narrative 12/29/2024 4:43 AM CDT EXAM DESCRIPTION: CT HEAD WO CONTRAST REASON FOR STUDY: Stroke, follow up Patient presents with new onset headache blurry vision and general weakness. Patient does have a shunt. TECHNIQUE: Axial images acquired through the brain without intravenous contrast. Coronal and sagittal reformats were performed. Images stored on PACS. Automated mA/kV exposure control was used as a dose optimization technique for this examination and patient examination was performed in strict accordance with principles of ALARA. COMPARISON: None. FINDINGS: BRAIN: There is no midline shift, mass or mass effect. The ventricles, cisterns and sulci are mildly, globally and proportionally prominent consistent with atrophy. There is normal differentiation of the wynne-white matter. There is no intracranial hemorrhage. There is decreased attenuation in the periventricular white matter, nonspecific, but likely related to small vessel ischemic change. EXTRA-AXIAL SPACES: No fluid collections. No masses. There is a right frontal approach ventricular shunt in place with its ending in the midline of the anterior horns. There is no change in appearance or location as compared to previous study. The radiopaque portions of the shunt appear intact through out their visualized course. CALVARIUM: No fracture. SINUSES/MASTOIDS: No fluid or mucosal thickening. ORBITS: No significant abnormality. OTHER: No other significant abnormality. IMPRESSION: 1. No acute intracranial abnormality. 2. Right frontal approach ventricular shunt in place without evidence of complication. 3. Mild global atrophy and white matter changes consistent with small-vessel ischemic disease. THIS IS AN ELECTRONICALLY VERIFIED FINAL REPORT 12/29/2024 4:43 AM - Electronically signed by Faith Bright M.D. SN: Report ID: [id number] Reading Location: [id number] Procedure Note Faith Bright MD - 12/29/2024 EXAM DESCRIPTION: CT HEAD WO CONTRAST REASON FOR STUDY: Stroke, follow up Patient presents with new onset headache blurry vision and generalweakness. Patient does have a shunt. TECHNIQUE: Axial images acquired through the brain without intravenous contrast. Coronal and sagittal reformats were performed. Images storedon PACS. Automated mA/kV exposure control was used as a dose optimization technique for this examination and patient examination was performed instrict accordance with principles of ALARA. COMPARISON: None. FINDINGS: BRAIN: There is no midline shift, mass or mass effect. The ventricles, cisterns and sulci are mildly, globally and proportionally prominent consistent with atrophy. There is normal differentiation of the wynne-white matter. There is no intracranial hemorrhage. There is decreasedattenuation in the periventricular white matter, nonspecific, but likely related tosmall vessel ischemic change. EXTRA-AXIAL SPACES: No fluid collections. No masses. There is a right frontal approach ventricular shunt in place with its ending in the midlineof the anterior horns. There is no change in appearance or location ascompared to previous study. The radiopaque portions of the shunt appear intactthrough out their visualized course. CALVARIUM: No fracture. SINUSES/MASTOIDS: No fluid or mucosal thickening. ORBITS: No significant abnormality. OTHER: No other significant abnormality. IMPRESSION: 1. No acute intracranial abnormality. 2. Right frontal approach ventricular shunt in place without evidence of complication. 3. Mild global atrophy and white matter changes consistent withsmall-vessel ischemic disease. THIS IS AN ELECTRONICALLY VERIFIED FINAL REPORT 12/29/2024 4:43 AM - Electronically signed by Faith Bright M.D. SN: Report ID: [id number] Reading Location: [id number] [facility] DO IMG CT PROCEDURES Sheila l Result * Blood culture Blood (12/28/2024 8:22 PM CDT) Report Final Report: No growth Comment:Testing performed by : [facility], [address] [place]., [address] Blood 12/28/2024 8:22 PM CDT 12/28/2024 10:04 PM CDT Narrative [facility] ([place]) - 01/02/2025 7:01 AM CDT From a different site than #1. Collection->Peripheral 1. Blood cultures are incubated for 4 days on a continuously monitored blood culture system. The first report of a negative culture is issued within 24 hours of receipt of the specimen in the laboratory. 2. Positive culture results are reported as soon as they are detected. 3. The most important factor for detection of microbes in the setting of bloodstream infection is the volume of blood submitted for culture. Failure to collect an optimal blood volume can result in false negative blood cultures. 4. For pediatric patients, the recommended blood volume to collect follows a weight based strategy. See the electronic test catalog for collection instructions. 5. For positive blood cultures, a rapid molecular test may be performed for organism identification using the chioma ePlex blood culture identification panel for gram positive (BCID-GP) and gram negative (BCID-GN) organisms. This nucleic acid amplification test detects microbial DNA in positive blood culture broth. This assay has been cleared by the [place] Food and Drug Administration and its performance characteristics have been verified by the [facility]. For questions about this culture, contact the Microbiology Laboratory at [phone]. Interpretive data was last revised on 24. us Demetrio Alvarez DO LAB MICROBIOLOGY - GEN ERAL ORDERABLES Final Result [facility] ([place]) 1 [facility] Department [place] [address] * Blood culture Blood (12/28/2024 8:22 PM CDT) Report Final Report: No growth Comment:Testing performed by : [facility], [address] [place] [address] Blood 12/28/2024 8:22 PM CDT 12/28/2024 10:04 PM CDT Narrative [facility] ([place]) - 01/03/2025 1:45 PM CDT Collection->Peripheral 1. Blood cultures are incubated for 4 days on a continuously monitored blood culture system. The first report of a negative culture is issued within 24 hours of receipt of the specimen in the laboratory. 2. Positive culture results are reported as soon as they are detected. 3. The most important factor for detection of microbes in the setting of bloodstream infection is the volume of blood submitted for culture. Failure to collect an optimal blood volume can result in false negative blood cultures. 4. For pediatric patients, the recommended blood volume to collect follows a weight based strategy. See the electronic test catalog for collection instructions. 5. For positive blood cultures, a rapid molecular test may be performed for organism identification using the chioma ePlex blood culture identification panel for gram positive (BCID-GP) and gram negative (BCID-GN) organisms. This nucleic acid amplification test detects microbial DNA in positive blood culture broth. This assay has been cleared by the [place] Food and Drug Administration and its performance characteristics have been verified by the [facility]. For questions about this culture, contact the Microbiology Laboratory at [phone]. Interpretive data was last revised on 24. Demetrio Brenner Edmundo DO LAB MICROBIOLOGY - GEN ERAL ORDERABLES Final Result [facility] ([place]) 1 [facility] Department [place] [address] * (ABNORMAL) Troponin T high-sensitivity 4-hour (12/28/2024 6:02 PM CDT) Trop T hs 40(H) <=14 ng/L [facility]) Comment: Interpretive Data For further hscTnT resources including the diagnostic algorithm and an aid in interpretation, copy and paste this link: https://nrl.testcatalog.org/show/hsTrop Current Interpretive Data last revised 2020. Trop T hs delta -2 ng/L [facility] ([place]) Trop T hs interp Insignificant [facility] ([place]) Blood 12/28/2024 6:02 PM CDT 12/28/2024 6:36 PM CDT Demetrio Alvarez DO LAB BLOOD ORDERABLES F inal Result [facility] ([place]) 1 [facility] [place] [address] * C4 complement (12/28/2024 6:02 PM CDT) Complement C4 10 10 - 40 mg/dL Comment:Testing performed by : [facility], [address] [place] [address]., [id number] Blood 12/28/2024 6:02 PM CDT 12/29/2024 9:29 AM CDT Demetrio Alvarez DO LAB BLOOD ORDERABLES F inal Result Performing Organization Address [facility]/ZIP Co de Phone Number [facility] ([place]) [address] [place] [address] * C3 complement (12/28/2024 6:02 PM CDT) Complement C3 112 90 - 180 mg/dL Comment:Testing performed by : [facility], [address] [place] [address]., [address] Blood 12/28/2024 6:02 PM CDT 12/29/2024 9:29 AM CDT Demetrio Alvarez DO LAB BLOOD ORDERABLES F inal Result [facility] ([place]) [address] [place] [address] * (ABNORMAL) Sodium level (12/28/2024 6:02 PM CDT) Sodium 127(L) 135 - 145 mmol/L [facility] ([place]) Blood 12/28/2024 6:02 PM CDT 12/28/2024 6:36 PM CDT Demetrio Alvarez DO LAB BLOOD ORDERABLES F inal Result Performing Organization Address City/[facility]/ZIP Co de Phone Number [facility] ([place]) 1 [facility] [place] [address] * (ABNORMAL) Troponin T high-sensitivity 2-hour (12/28/2024 4:31 PM CDT) Trop T hs 39(H) <=14 ng/L [facility] ([place]) Comment: Interpretive Data For further hscTnT resources including the diagnostic algorithm and an aid in interpretation, copy and paste this link: https://nrl.testcatalog.org/show/hsTrop Current Interpretive Data last revised 2020. Trop T hs delta -3 ng/L [facility] ([place]) Trop T hs interp Insignificant [facility] ([place]) Blood 12/28/2024 4:31 PM CDT 12/28/2024 5:24 PM CDT Demetrio Alvarez DO LAB BLOOD ORDERABLES F inal Result Performing Organization Address City/[facility]/ZIP Co de Phone Number [facility] ([place]) 1 [facility] Department [place] [address] * TRANSTHORACIC ECHO (TTE) COMPLETE W DOPPLER/CF WO CONTRAST (12/28/2024 2:54 PM CDT) Estimated EF 60 % CONS SCIMAGE Anatomical Region Laterality Modality Ultrasound 12/28/2024 2:47 PM CDT Narrative 12/28/2024 3:03 PM CDT [address] [address] Echocardiogram Report Patient Name: VENKATESH ZALDIVAR : 1945 Study Date: 12/28/2024 2:47:15 PM Sex: F Tech: Location: [id number] Ref Provider: DEMETRIO ALVAREZ Height(Cm): BSA: Weight(Kg): Quality: Adequate Order Provider: DEMETRIO ALVAREZ PROCEDURES: Echocardiographic Report: Transthoracic echocardiogram with complete 2D, M-Mode, and color Doppler examination. INDICATIONS: Elevated proBNP, new respiratory failure - MEASUREMENTS: 2D/MM Value Range Doppler Value Range EF Teich MM 62.7 % [ 54.0 - 74.0 ] KALEIGH Vmax 2.68 cm2 Estimated EF 60 to 65 % AV Mean PG 5 mmHg LVIDd MM 4.71 cm [ 3.80 - 5.20 ] AV Peak Ronnie 1.52 m/s [ 1.00 - 1.70 ] LVIDs MM 3.12 cm [ 2.20 - 3.50 ] AV VTI 28.37 cm LVPWd MM 0.77 cm [ 0.60 - 0.90 ] LVOT Diam 2.18 cm IVSd MM 0.73 cm [ 0.60 - 0.90 ] LVOT Peak Ronnie 1.09 m/s [ 0.70 - 1.10 ] LA Dimension MM 2.74 cm [ 2.70 - 3.80 ] LVOT VTI 17.50 cm AoR Diam MM 3.02 cm [ 2.70 - 3.70 ] MV E Peak Ronnie 0.95 m/s [ 0.60 - 1.30 ] ACS MM 1.48 cm MV A Peak Ronnie 1.32 m/s [ 1.00 - 1.20 ] MV Mean PG 4 mmHg MV PHT 42 msec [ 20 - 100 ] MVA 5.30 MV Decel Time 144 msec [ 104 - 258 ] PV Peak Ronnie 0.81 m/s [ 0.40 - 0.80 ] TR Peak Ronnie 2.68 m/s [ 1.00 - 2.80 ] TR Peak PG 29 mmHg RVSP 32.00 mmHg [ 10.00 - 36.00 ] E` 0.05 m/s E/E` 17.75 [ <= 10.00 ] PA Pressure 32.00 mmHg [ 10.00 - 36.00 ] 2D/MM Value Range Doppler Value Range - FINDINGS: Atrial Septum: Normal atrial septum. Left Ventricle: Mild concentric left ventricular hypertrophy. Diastolic dysfunction is present. Ejection Fraction is estimated to be 60 to 65 %. Left Atrium: The left atrium is normal in size. Right Ventricle: Normal right ventricular size. Normal right ventricular systolic function. Pacemaker noted. Right Atrium: The right atrium is normal in size. Aortic Valve: Normal structure of the aortic valve. Mitral Valve: Moderate mitral annular calcification. Trivial regurgitation of the mitral valve. Pulmonic Valve: Pulmonic valve not well visualized. Tricuspid Valve: Normal structure of the tricuspid valve. Mild pulmonary hypertension based on right ventricular systolic pressure. Estimated peak RVSP is 40 to 44 mmHg. Mild tricuspid regurgitation. Pericardium: Normal pericardium with no significant pericardial effusion. Aorta: Normal aortic root. IVC: Normal size and normal respiratory collapse consistent with normal right atrial pressure (<5 mmHg). CONCLUSIONS: Mild concentric left ventricular hypertrophy. Diastolic dysfunction is present. Ejection Fraction is estimated to be 60 to 65 %. Moderate mitral annular calcification. Trivial regurgitation of the mitral valve. Normal structure of the aortic valve. Normal structure of the tricuspid valve. Mild pulmonary hypertension based on right ventricular systolic pressure. Estimated peak RVSP is 40 to 44 mmHg. Mild tricuspid regurgitation. Electronically Signed By: Dr Aleksandar Valladares 12/28/2024 3:02:53 PM CDT Procedure Note Aleksandar Valladares MD - 12/28/[address] [place] [address] Echocardiogram Report Patient Name: VENKATESH ZALDIVAR : 1945 Study Date: 12/28/2024 2:47:15 PM Sex: F Tech: Location: [place] [address] Ref Provider: DEMETRIO ALVAREZ Height(Cm): BSA: Weight(Kg): Quality: Adequate Order Provider: DEMETRIO ALVAREZ PROCEDURES: Echocardiographic Report: Transthoracic echocardiogram with complete 2D, M-Mode, and color Dopplerexamination. INDICATIONS: Elevated proBNP, new respiratory failure - MEASUREMENTS: 2D/MM Value Range Doppler ValueRange EF Teich MM 62.7 % [ 54.0 - 74.0 ] KALEIGH Vmax 2.68cm2 Estimated EF 60 to 65 % AV Mean PG 5mmHg LVIDd MM 4.71 cm [ 3.80 - 5.20 ] AV Peak Ronnie 1.52m/s [ 1.00 - 1.70 ] LVIDs MM 3.12 cm [ 2.20 - 3.50 ] AV VTI 28.37cm LVPWd MM 0.77 cm [ 0.60 - 0.90 ] LVOT Diam 2.18cm IVSd MM 0.73 cm [ 0.60 - 0.90 ] LVOT Peak Ronnie 1.09m/s [ 0.70 - 1.10 ] LA Dimension MM 2.74 cm [ 2.70 - 3.80 ] LVOT VTI 17.50cm AoR Diam MM 3.02 cm [ 2.70 - 3.70 ] MV E Peak Ronnie 0.95m/s [ 0.60 - 1.30 ] ACS MM 1.48 cm MV A Peak Ronnie 1.32m/s [ 1.00 - 1.20 ] MV Mean PG 4 mmHg MV PHT 42 msec [ 20 - 100 ] MVA 5.30 MV Decel Time 144 msec [ 104 - 258 ] PV Peak Ronnie 0.81 m/s [ 0.40 - 0.80 ] TR Peak Ronnie 2.68 m/s [ 1.00 - 2.80 ] TR Peak PG 29 mmHg RVSP 32.00 mmHg [ 10.00 - 36.00 ] E` 0.05 m/s E/E` 17.75 [ <= 10.00 ] PA Pressure 32.00 mmHg [ 10.00 - 36.00 ] 2D/MM Value Range Doppler ValueRange - FINDINGS: Atrial Septum: Normal atrial septum. Left Ventricle: Mild concentric left ventricular hypertrophy. Diastolic dysfunction ispresent. Ejection Fraction is estimated to be 60 to 65 %. Left Atrium: The left atrium is normal in size. Right Ventricle: Normal right ventricular size. Normal right ventricular systolic function.Pacemaker noted. Right Atrium: The right atrium is normal in size. Aortic Valve: Normal structure of the aortic valve. Mitral Valve: Moderate mitral annular calcification. Trivial regurgitation of the mitralvalve. Pulmonic Valve: Pulmonic valve not well visualized. Tricuspid Valve: Normal structure of the tricuspid valve. Mild pulmonary hypertension basedon right ventricular systolic pressure. Estimated peak RVSP is 40 to 44 mmHg. Mildtricuspid regurgitation. Pericardium: Normal pericardium with no significant pericardial effusion. Aorta: Normal aortic root. IVC: Normal size and normal respiratory collapse consistent with normal rightatrial pressure (<5 mmHg). CONCLUSIONS: Mild concentric left ventricular hypertrophy. Diastolic dysfunction ispresent. Ejection Fraction is estimated to be 60 to 65 %. Moderate mitral annular calcification. Trivial regurgitation of the mitralvalve. Normal structure of the aortic valve. Normal structure of the tricuspid valve. Mild pulmonary hypertension basedon right ventricular systolic pressure. Estimated peak RVSP is 40 to 44 mmHg. Mildtricuspid regurgitation. Electronically Signed By: Dr Aleksandar Valladares 12/28/2024 3:02:53 PM CDT [facility] DO CV ECHO PROCEDURES Fin al Result * (ABNORMAL) Troponin T high-sensitivity series (baseline, 2hr, 4hr, 6hr) (12/28/2024 2:23 PM CDT) Trop T hs 42(H) <=14 ng/L [facility] ([place]) Comment: Interpretive Data For further hscTnT resources including the diagnostic algorithm and an aid in interpretation, copy and paste this link: https://nrl.testcatalog.org/show/hsTrop Current Interpretive Data last revised 2020. Blood 12/28/2024 2:23 PM CDT 12/28/2024 3:07 PM CDT Demetrio Alvarez DO LAB BLOOD ORDERABLES F inal Result [facility] ([place]) 1 [facility] [place] [address] * Blood gas, venous (12/28/2024 2:23 PM CDT) pH, Venous 7.35 7.32 - 7.43 PCO2, Venous 43 40 - 50 mmHg [facility] ([place]) PO2, Venous 108 mmHg [facility] ([place]) Comment: Interpretive Data No reference range established. Current interpretive data was last revised 2017. HCO3 Venous, Calculated 23 20 - 30 mmol/L [facility] ([place]) BE, venous -2 mmol/L [facility] ([place]) Comment: Interpretive Data No Reference Range Established Current Interpretive Data was last revised on 2017. Blood 12/28/2024 2:23 PM CDT 12/28/2024 2:57 PM CDT Demetrio Brenner Edmundo LAB BLOOD ORDERABLES F inal Result Performing Organization Address City/[facility]/ZIP Co de Phone Number [facility] ([place]) 1 [facility] [place] [address] * (ABNORMAL) Sodium level (12/28/2024 1:31 PM CDT) Sodium 125(L) 135 - 145 mmol/L [facility] ([place]) Blood 12/28/2024 1:31 PM CDT 12/28/2024 2:18 PM CDT Demetrio Alvarez DO LAB BLOOD ORDERABLES F inal Result [facility] ([place]) 1 [facility] [place] [address] * ECG 12 lead (12/28/2024 1:06 PM CDT) 12/28/2024 1:06 PM CDT Narrative [facility] - 12/28/2024 2:40 PM CDT Vent Rate: 85 bpm RR Interval: 699 msec [place] Interval: 218 msec QRS Duration: 102 msec QT Interval: 348 msec QTC Interval: 391 msec P-R-T [place]: 59 - 38 - 50 degrees IMPRESSION: SINUS RHYTHM WITH FIRST DEGREE AV BLOCK ABNORMAL ECG No change compared to prior EKG Electronically Signed By: Rip Gotti MD [facility] us Demetrio Alvarez DO ECG ORDERABLES Final Result [facility] * Respiratory pathogen panel Nasopharyngeal (12/28/2024 1:03 PM CDT) Influenza A RNA Not Detected Not Detected Comment:Testing performed by : [address] [address] Influenza B RNA Not Detected Not Detected [facility] ([place]) Comment:Testing performed by : [facility], [address] [place] [address]., [address] RSV RNA Not Detected Not Detected [facility] ([place]) Comment:Testing performed by : [address] [address] COVID-19 RNA Not Detected Not Detected [facility] ([place]) Comment:Testing performed by : [address] [address] Coronavirus 229E RNA Not Detected Not Detected [facility] ([place]) Comment:Testing performed by : [address] [address] Coronavirus HKU1 RNA Not Detected Not Detected [facility] ([place]) Comment:Testing performed by : [address] [address] Coronavirus NL63 RNA Not Detected Not Detected [facility] ([place]) Comment:Testing performed by : [address] [address] Coronavirus OC43 RNA Not Detected Not Detected [facility] ([place]) Comment:Testing performed by : [address] [address] Adenovirus DNA Not Detected Not Detected [facility] ([place]) Comment:Testing performed by : [facility], [address] [place] [address]., [address] Metapneumovirus RNA Not Detected Not Detected [facility] ([place]) Comment:Testing performed by : [facility], [address] [place] [address]., [address] Rhinovirus/Enterov irus RNA Not Detected Not Detected [facility] ([place]) Comment:Testing performed by : [facility], [address] [place] [address]., [address] Parainfluenza 1 RNA Not Detected Not Detected [facility] ([place]) Comment:Testing performed by : [facility], [address] [place] [address]., [address] Parainfluenza 2 RNA Not Detected Not Detected [facility] ([place]) Comment:Testing performed by : [facility], [address] [place] [address]., [address] Parainfluenza 3 RNA Not Detected Not Detected [facility] ([place]) Comment:Testing performed by : [facility], [address] [place] [address]., [address] Parainfluenza 4 RNA Not Detected Not Detected [facility] ([place]) Comment:Testing performed by : [facility], [address] [place] [address]., [address] B. pertussis DNA Not Detected Not Detected [facility] ([place]) Comment:Testing performed by : [facility], [address] [place] [address]., [address] B. parapertussis DNA Not Detected Not Detected [facility] ([place]) Comment:Testing performed by : [facility], [address] [place] [address], [address] C. pneumoniae DNA Not Detected Not Detected [facility] ([place]) Comment:Testing performed by : [facility], [address] [place] [address], [address] M. pneumoniae DNA Not Detected Not Detected [facility] ([place]) Comment: Interpretive Data The evOLED FilmArray Respiratory Panel (RP2.1) assay is a multiplexed real-time PCR based nucleic acid test capable of simultaneous qualitative detection and identification of multiple respiratory viral and bacterial nucleic acids, including SARS Coronavirus 2 (the causative agent of COVID-19). The following bacteria, viruses and virus subtypes can be identified using the FilmArray RP2.1 assay: Bordetella pertussis, Bordetella parapertussis, Chlamydia pneumoniae, Mycoplasma pneumoniae, Adenovirus, SARS Coronavirus 2, seasonal coronaviruses (Coronavirus HKU1, Coronavirus NL63, Coronavirus 229E, and Coronavirus OC43), Influenza A, Influenza A subtype H1, Influenza A subtype H3, Influenza A subtype 2009 H1, Influenza B, Metapneumovirus, Parainfluenza 1, Parainfluenza 2, Parainfluenza 3, Parainfluenza 4, RSV, Rhinovirus/Enterovirus. Due to the genetic similarity between human Rhinovirus and Enterovirus, the FilmArray RP2.1 assay cannot reliably differentiate them. Coronavirus OC43 may cross-react with some isolates of Coronavirus HKU1. A dual positive result may be due to cross-reactivity or may indicate a co- infection. The detection and identification of specific viral and bacterial nucleic acids from individuals exhibiting signs and symptoms of a respiratory infection aids in the diagnosis of respiratory infection if used in conjunction with other clinical and epidemiological information. The results of this test should not be used as the sole basis for diagnosis, treatment, or other management decisions. Negative results in the setting of a respiratory illness may be due to infection with pathogens that are not detected by this test. Positive results do not rule out infection/co-infection with other organisms. The agent(s) detected by the FilmArray RP2.1 may not be the definite cause of disease. Additional testing (lab, imaging, etc.) may be necessary when evaluating a patient with possible respiratory tract infection. The FilmArray RP2.1 assay has FDA clearance for testing of [employer] swabs. The performance characteristics of this assay have been determined by [facility]. Current interpretive data was last revised on 2020. Testing performed by: [facility], [address] [place] [address], [place]., [address] Nasopharyngeal 12/28/2024 1: 03 PM CDT 12/28/2024 5:26 PM CDT [facility] ([place]) - 12/28/2024 7:37 PM CDT Is the Patient experiencing symptoms consistent with COVID?->Yes Surveillance testing for transplant patient?->No Demetrio Jordin Nations DO LAB MICROBIOLOGY - GEN ERAL ORDERABLES Final Result Performing Organization Address [facility]/ZIP Co de Phone Number [facility] ([place]) 1 [facility] [place] [address] [place] * Sodium, urine, random (12/28/2024 10:45 AM CDT) Sodium, ur <20 mmol/L [facility] ([place]) Comment: Interpretive Data No reference range established. Current interpretive data was last revised 2018. Urine 12/28/2024 10:4 5 AM CDT 12/28/2024 10:54 AM CDT Narrative [facility] ([place]) - 12/28/2024 11:55 AM CDT No normal range Diogenes Law MD LAB URINE ORDERABLES Final Re sult Performing Organization Address [facility] Co de Phone Number [facility] ([place]) 1 [facility] [place] [address] * Osmolality, urine (12/28/2024 10:45 AM CDT) Osmo, ur 577 mOsm/kg Comment:Testing performed by : [facility], [address] [place] [address] Urine 12/28/2024 10:4 5 AM CDT 12/28/2024 2:17 PM CDT Diogenes Law MD LAB URINE ORDERABLES Final Re sult Performing Organization Address City/[facility]/ZIP Co de Phone Number [facility] ([place]) 1 [facility] [place] [address] * eGFR (12/28/2024 5:27 AM CDT) eGFR 69 >=60 mL/min/1. 73 m2 Comment: Interpretive Data Reference Interval Normal >/= 90 mL/min/1.73m2 Mildly decreased* 60 - 89 mL/min/1.73m2 Mildly to moderately decreased 45 - 59 mL/min/1.73m2 Moderately to severely decreased 30 - 44 mL/min/1.73m2 Severely decreased 15 - 29 mL/min/1.73m2 Kidney Failure < 15 mL/min/1.73m2 *Relative to young adult level Estimated glomerular filtration rate is determined by the 2020 CKD-EPI equation recommended by the National Kidney Foundation (A Unifying Approach to GFR Estimation: Recommendations of the NKF-ASK Task Force on Reassessing the Inclusion of Race in Diagnosing Kidney Disease, JASN 2020). The CKD-EPI equation should not be used for patients with unstable renal function and has not been validated in children and those over 70. Current interpretive data was last reviewed 2021. Blood 12/28/2024 5:27 AM CDT 12/28/2024 5:48 AM CDT us Jose Luis Persaud MD LAB BLOOD ORDERABLES nal Result [facility] ([place]) 1 [facility] Department [place] [address] * (ABNORMAL) Pro B-type natriuretic peptide (12/28/2024 5:27 AM CDT) NT-proBNP 13,963(H) <=450 pg/mL [facility] ([place]) Comment: Interpretive Comments: A. Dyspnea in Acute Care Setting All Ages: < 300 pg/ml, acute heart failure unlikely. < 50 yrs: 300 - 450 pg/ml, further investigation warranted. > 450 pg/ml, acute heart failure likely. 50 - 74 yrs: 300 - 900 pg/ml, further investigation warranted. > 900 pg/ml, acute heart failure likely . > or = 75 yrs: 450 - 1800 pg/ml, further investigation warranted. > 1800 pg/ml, acute heart failure likely. B. Non-acute Setting < 75 yrs < 125 pg/ml, rules out heart failure. > or = 125 pg/ml, further investigation warranted. > or = 75 yrs < 450 pg/ml, rules out heart failure. > or = 450 pg/ml, further investigation warranted. - Knowledge of each individual patient's NT-proBNP range may be more useful than using similar cut-points for every patient. Please note that marked elevations in NT-proBNP levels may be observed in state other than Left Ventricular Congestive Failure, including: acute coronary syndromes, right heart strain/failure (including pulmonary embolism and cor pulmonale), critical illness, renal failure, as well as advanced age. - References: 1. Scarlet ELIZABETH et.al. Eur Heart J. 2006:27:330-337. 2. Kimmy KAUR, Prasad CLAUDIO. J. AM Surya Cardiol: Cardiovasc Imag. 2009;2: 216- 225. Interpretive Data Last Revised Date: 2017. Blood 12/28/2024 5:27 AM CDT 12/28/2024 9:36 AM CDT us Diogenes Law MD LAB BLOOD ORDERABLES Final Re sult [facility] Department [place] [address] * (ABNORMAL) CBC with auto differential (12/28/2024 5:27 AM CDT) WBC 11.75(H) 3.80 - 9.90 K/cumm Hgb 11.3(L) 11.9 - 15.5 g/dL [facility] ([place]) Hct 33.8(L) 35.6 - 45.5 % [facility] ([place]) Plt 67(L) 150 - 400 K/cumm [facility] ([place]) MPV 10.3 9.1 - 12.3 fL [facility] ([place]) RBC 3.46(L) 3.90 - 5.20 M/cumm [facility] ([place]) MCV 97.7(H) 81.3 - 96.4 fL [facility] ([place]) MCH 32.7 27.1 - 33.3 pg [facility] ([place]) MCHC 33.4 32.3 - 35.7 g/dL [facility] ([place]) RDW CV 12.6 11.1 - 14.9 % [facility] ([place]) RDW SD 45.1 35.7 - 48.1 fL [facility] ([place]) NRBC abs 0.00 0.00 - 0.01 K/cumm [facility] ([place]) Blood 12/28/2024 5:27 AM CDT 12/28/2024 5:48 AM CDT us Jose Luis Persaud MD LAB BLOOD ORDERABLES Fi nal Result [facility] ([place]) 1 [facility] Department [place] [address] * (ABNORMAL) Manual Differential (12/28/2024 5:27 AM CDT) Differential Manual Cells Counted 100 [facility] ([place]) Neutrophil abs 10.58(H) 1.50 - 6.50 K/cumm [facility] ([place]) Lymphocyte abs 0.59(L) 0.80 - 3.30 K/cumm [facility] ([place]) Monocyte abs 0.59 0.20 - 0.80 K/cumm [facility] ([place]) Neutrophil pct 71.0 % [facility] ([place]) Comment: Interpretive Data Percent cell count reference ranges are not reported, since discordance with absolute values may lead to misinterpretation of CBC data. Current Interpretive Data was last revised on 2017. Lymphocyte pct 5.0 % [facility] ([place]) Comment: Interpretive Data Percent cell count reference ranges are not reported, since discordance with absolute values may lead to misinterpretation of CBC data. Current Interpretive Data was last revised on 2017. Monocyte pct 5.0 % [facility] ([place]) Comment: Interpretive Data Percent cell count reference ranges are not reported, since discordance with absolute values may lead to misinterpretation of CBC data. Current Interpretive Data was last revised on 2017. Band Neutrophil pct 19.0(H) 0.0 - 5.0 % [facility] ([place]) RBC morphology Consistent with RBC Indicies [facility] ([place]) Anisocytosis Slight(A) [facility] ([place]) Platelet estimate Decreased(A) [facility] ([place]) Blood 12/28/2024 5:27 AM CDT 12/28/2024 5:48 AM CDT Jose Luis Persaud MD LAB BLOOD ORDERABLES Fi nal Result [facility] ([place]) 1 [facility] [place] [address] * (ABNORMAL) Erythrocyte sedimentation rate (12/28/2024 5:27 AM CDT) Erythrocyte sedimentation rate 34(H) 1 - 30 mm/hr Blood 12/28/2024 5:27 AM CDT 12/28/2024 11:27 AM CDT Demetrio Alvarez LAB BLOOD ORDERABLES F inal Result Performing Organization Address [facility] Co de Phone Number [facility] ([place]) 1 [facility] [place] [address] * (ABNORMAL) CRP (acute phase) (12/28/2024 5:27 AM CDT) Pathologist [facility] [place] CRP 317.0(H) <=10.0 mg/L [facility] ([place]) Blood 12/28/2024 5:27 AM CDT 12/28/2024 11:27 AM CDT Demetrio Alvarez DO LAB BLOOD ORDERABLES F inal Result Performing Organization Address City/[facility]/ZIP Co de Phone Number [facility] ([place]) 1 [facility] [place] [address] * (ABNORMAL) Osmolality, blood (12/28/2024 5:27 AM CDT) Osmo 270(L) 275 - 300 mOsm/kg Comment:Testing performed by : [facility], [address] [facility], [place]., [address] Blood 12/28/2024 5:27 AM CDT 12/28/2024 2:20 PM CDT us Diogenes Law MD LAB BLOOD ORDERABLES Final Re sult [facility] ([place]) 1 [facility] [place] [address] * Creatine kinase (CK), total (12/28/2024 5:27 AM CDT) CK 34 30 - 200 Units/L [facility] ([place]) Blood 12/28/2024 5:27 AM CDT 12/28/2024 11:27 AM CDT us Dylan Levy NP LAB BLOOD ORDERABLES Final Result Performing Organization Address [facility] Co de Phone Number [facility] ([place]) 1 [facility] [place] [address] * (ABNORMAL) Comprehensive metabolic panel (12/28/2024 5:27 AM CDT) Sodium 127(L) 135 - 145 mmol/L [facility] ([place]) Potassium, pl 4.5 3.3 - 4.9 mmol/L [facility] ([place]) Chloride 97 97 - 110 mmol/L [facility] ([place]) CO2 19(L) 22 - 32 mmol/L [facility] ([place]) Anion gap 11 2 - 15 mmol/L [facility] ([place]) BUN 22 6 - 25 mg/dL [facility] ([place]) Creatinine 0.86 0.60 - 1.10 mg/dL [facility] ([place]) Glucose 88 70 - 199 mg/dL [facility] ([place]) Comment: Interpretive Data Fasting glucose >/= 126 mg/dl is diagnostic for diabetes. Fasting is defined as no caloric intake for at least 8 hours. Fasting glucose between 100 mg/dl to 125 mg/dl is diagnostic of prediabetes. In a patient with classic symptoms of hyperglycemia or hyperglycemic crisis, a random glucose >/= 200 mg/dl is diagnostic for diabetes. In the absence of unequivocal hyperglycemia, results should be confirmed by repeat testing. The classification and Diagnosis of Diabetes Diabetes Care 2021; 46: S19-S40. Current interpretive data was last revised 2022. Calcium 8.3(L) 8.5 - 10.3 mg/dL [facility] ([place]) Bilirubin, total 0.6 0.1 - 1.2 mg/dL [facility] ([place]) Protein, pl 5.4(L) 6.5 - 8.5 g/dL [facility] ([place]) Albumin 2.9(L) 3.5 - 5.0 g/dL [facility] ([place]) Alk phos 99 40 - 130 Units/L [facility] ([place]) ALT 21 7 - 45 Units/L [facility] ([place]) AST 25 10 - 45 Units/L [facility] ([place]) Blood 12/28/2024 5:27 AM CDT 12/28/2024 5:48 AM CDT Jose Luis Persaud MD LAB BLOOD ORDERABLES Fi nal Result [facility] ([place]) [address] [place] [address] * (ABNORMAL) Sodium level (12/28/2024 12:03 AM CDT) Sodium 125(L) 135 - 145 mmol/L [facility] ([place]) Blood 12/28/2024 12:0 3 AM CDT 12/28/2024 12:22 AM CDT Demetrio Alvarez DO LAB BLOOD ORDERABLES F inal Result [facility] ([place]) [address] [place] [address] * (ABNORMAL) D-dimer, quantitative (12/27/2024 8:25 PM CDT) D-Dimer 15,793(H) <=499 ng/mL FEU [facility] ([place]) Comment: reviewed Interpretive data FDA approved the D-dimer, in conjunction with a low or moderate pretest probability score, to exclude venous thromboembolic events (VTE) (PE and DVT) in outpatients when the D-dimer result is < 500 ng/ml FEU. Evidence supports using an age-adjusted D-dimer cut-off for outpatients older than 50 (age x 10) to improve specificity without sacrificing sensitivity. Example: age 68, VTE cut-off 680 ng/ml FEU. References; Schoutson HT et al. Brit Med J. 2013;346:f2492. Willie SEAY et al. Annals Int Med. 2015;163:701-11. Current interpretive data was last revised on 2019. Blood 12/27/2024 8:25 PM CDT 12/27/2024 8:55 PM CDT Demetrio Alvarez DO LAB BLOOD ORDERABLES F inal Result Performing Organization Address City/[facility]/ZIP Co de Phone Number [facility] ([place]) 1 [facility] [place] [employer] [place] [address] * (ABNORMAL) Sodium level (12/27/2024 8:25 PM CDT) Sodium 124(L) 135 - 145 mmol/L [facility] ([place]) Blood 12/27/2024 8:25 PM CDT 12/27/2024 8:55 PM CDT Demetrio Alvarez DO LAB BLOOD ORDERABLES F inal Result [facility] ([place]) 1 [facility] [place] [employer] [place] [address] * CT Chest PE (CTA) Abdomen Pelvis W Contrast (12/27/2024 8:01 PM CDT) Anatomical Region Laterality Modality Body N/A Computed Tomogra phy 12/28/2024 4:11 AM CDT Narrative 12/28/2024 4:40 AM CDT EXAM DESCRIPTION: CT CHEST PE (CTA) ABDOMEN PELVIS W CONTRAST REASON FOR STUDY: Pulmonary embolism (PE) suspected, high prob Patient complains of back pain and shortness of breath unknown onset. After about 80 of contrast line from tubing, discussed with Dr Marie at time of exam about re inject he stated the pe was adequate and no reinject needed. TECHNIQUE: CT angiogram of the chest performed with intravenous contrast using helical scanning technique with dynamic intravenous contrast injection. Axial tomographic sections were then obtained through the abdomen and pelvis. Reconstructed coronal and sagittal MPR images reviewed. All images stored on PACS. 3D MIP images rendered on scanning unit and reviewed at time of interpretation. Automated exposure control was used as a dose optimization technique for this examination. CONTRAST TYPE/DOSE: 100mL of IOVERSOL 350 MG IODINE/ML INTRAVENOUS SYRINGE injected via intravenous COMPARISON: CT of the chest of February 11, [address] of the abdomen and pelvis of November 16, 2024. REFERENCE: Per ACR white paper recommendations, unless otherwise specified no follow-up imaging is recommended for incidental renal and adrenal lesions per consensus recommendations based on imaging criteria. Further lab evaluation could be pursued based on clinical findings. FINDINGS: CHEST NECK BASE: Evaluation of the neck base is somewhat limited by streak artifact from the cervical spine hardware. 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 HARDWARE/LINES/TUBES: A CALENDER WIND UP TENDER shunt extends along the right neck base. LYMPH NODES: No axillary, mediastinal or hilar lymphadenopathy is seen by CT size criteria. MEDIASTINUM/KIM: No masses seen. There is mild atherosclerosis of the aorta. There is moderate coronary artery calcification. The contrast bolus is suboptimal . There is atelectasis in the lung bases, limiting evaluation. The pulmonary arteries are not well evaluated to the central vasculature . There are no filling defects seen in the central pulmonary arteries on the axial or coronal images to suggest central pulmonary embolism. There is no evidence of left intraventricular septal bowing. There is no significant reflux of contrast into the IVC. Heart is mildly enlarged, unchanged. There is a trace pericardial effusion. PLEURA: There are small bilateral pleural effusions. No pneumothorax LUNGS: There is dependent and compressive atelectasis in the lung bases bilaterally. Lungs are otherwise clear. The central airways are normal. MUSCULOSKELETAL: There is moderate diffuse degenerative change of the thoracic spine. There is no acute abnormality. CHEST WALL/BREAST: A CALENDER WIND UP TENDER shunt runs along the anterior right chest wall. OTHER: No other significant abnormality. ABDOMEN AND PELVIS LIVER: The liver is normal in attenuation without focal lesion. GALLBLADDER: No stones identified. Normal wall. No evidence of pericholecystic fluid. BILE DUCTS: No intrahepatic or extrahepatic ductal dilatation. PANCREAS: Normal. SPLEEN: No focal lesions. Spleen is normal in size. ADRENALS: Normal. KIDNEYS/URINARY TRACT: No significant cystic or solid masses. No visualized renal or ureteral stones. There is no hydronephrosis or hydroureter. Urinary bladder is unremarkable. VASCULATURE: There is moderate atherosclerosis of the aorta and its pelvic branches. GI: The stomach appears normal. There is no significant small bowel dilation or visible thickening. No gross colonic abnormalities identified. The appendix is normal. PERITONEUM/MESENTERY: There is a small amount of ascites in the pelvis. Ventriculoperitoneal shunt is seen in place with its tip ending in the left abdomen. LYMPH NODES: There are no enlarged lymph nodes seen by CT size criteria. RETROPERITONEUM: No additional retroperitoneal abnormalities. REPRODUCTIVE: Uterus and adnexae are unremarkable. MUSCULOSKELETAL: There is moderate scoliosis of the lumbar spine and moderate to severe degenerative change through out the spine. OTHER: No other abnormality. IMPRESSION: 1. Suboptimal contrast bolus. No evidence of central pulmonary embolism. 2. Small bilateral pleural effusions with adjacent atelectasis. 3. Mild cardiomegaly and trace pericardial effusion. 4. Atherosclerosis. 5. Small amount of ascites in the pelvis. 6. Ventriculoperitoneal shunt in place. 7. Moderate scoliosis of the lumbar spine and moderate to severe degenerative change through out the spine. THIS IS AN ELECTRONICALLY VERIFIED FINAL REPORT 12/28/2024 4:40 AM - Electronically signed by Faith Bright M.D. SN: Report ID: [id number] Reading Location: [id number] Procedure Note Faith Bright MD - 12/28/2024 EXAM DESCRIPTION: CT CHEST PE (CTA) ABDOMEN PELVIS W CONTRAST REASON FOR STUDY: Pulmonary embolism (PE) suspected, high prob Patient complains of back pain and shortness of breath unknown onset. After about 80 of contrast line from tubing, discussed with Dr Marie at time of exam about re inject he stated the pe was adequate andno reinject needed. TECHNIQUE: CT angiogram of the chest performed with intravenous contrastusing helical scanning technique with dynamic intravenous contrast injection.Axial tomographic sections were then obtained through the abdomen and pelvis. Reconstructed coronal and sagittal MPR images reviewed. All images storedon PACS. 3D MIP images rendered on scanning unit and reviewed at time of interpretation. Automated exposure control was used as a doseoptimization technique for this examination. CONTRAST TYPE/DOSE: 100mL of IOVERSOL 350 MG IODINE/ML INTRAVENOUSSYRINGE injected via intravenous COMPARISON: CT of the chest of February 11, [address] of the abdomenand pelvis of November 16, 2024. REFERENCE: Per ACR white paper recommendations, unless otherwise specifiedno follow-up imaging is recommended for incidental renal and adrenal lesionsper consensus recommendations based on imaging criteria. Further labevaluation could be pursued based on clinical findings. FINDINGS: CHEST NECK BASE: Evaluation of the neck base is somewhat limited by streakartifact from the cervical spine hardware. 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 HARDWARE/LINES/TUBES: A CALENDER WIND UP TENDER shunt extends along the right neck base. LYMPH NODES: No axillary, mediastinal or hilar lymphadenopathy is seen byCT size criteria. MEDIASTINUM/KIM: No masses seen. There is mild atherosclerosis of the aorta. There is moderate coronary artery calcification. The contrastbolus is suboptimal . There is atelectasis in the lung bases, limiting evaluation. The pulmonary arteries are not well evaluated to thecentral vasculature . There are no filling defects seen in the central pulmonary arteries on the axial or coronal images to suggest central pulmonaryembolism. There is no evidence of left intraventricular septal bowing. There isno significant reflux of contrast into the IVC. Heart is mildly enlarged, unchanged. There is a trace pericardial effusion. PLEURA: There are small bilateral pleural effusions. No pneumothorax LUNGS: There is dependent and compressive atelectasis in the lung bases bilaterally. Lungs are otherwise clear. The central airways arenormal. MUSCULOSKELETAL: There is moderate diffuse degenerative change of the thoracic spine. There is no acute abnormality. CHEST WALL/BREAST: A CALENDER WIND UP TENDER shunt runs along the anterior right chest wall. OTHER: No other significant abnormality. ABDOMEN AND PELVIS LIVER: The liver is normal in attenuation without focal lesion. GALLBLADDER: No stones identified. Normal wall. No evidence of pericholecystic fluid. BILE DUCTS: No intrahepatic or extrahepatic ductal dilatation. PANCREAS: Normal. SPLEEN: No focal lesions. Spleen is normal in size. ADRENALS: Normal. KIDNEYS/URINARY TRACT: No significant cystic or solid masses. Novisualized renal or ureteral stones. There is no hydronephrosis or hydroureter. Urinary bladder is unremarkable. VASCULATURE: There is moderate atherosclerosis of the aorta and itspelvic branches. GI: The stomach appears normal. There is no significant small bowel dilation or visible thickening. No gross colonic abnormalitiesidentified. The appendix is normal. PERITONEUM/MESENTERY: There is a small amount of ascites in the pelvis. Ventriculoperitoneal shunt is seen in place with its tip ending in theleft abdomen. LYMPH NODES: There are no enlarged lymph nodes seen by CT size criteria. RETROPERITONEUM: No additional retroperitoneal abnormalities. REPRODUCTIVE: Uterus and adnexae are unremarkable. MUSCULOSKELETAL: There is moderate scoliosis of the lumbar spine andmoderate to severe degenerative change through out the spine. OTHER: No other abnormality. IMPRESSION: 1. Suboptimal contrast bolus. No evidence of central pulmonaryembolism. 2. Small bilateral pleural effusions with adjacent atelectasis. 3. Mild cardiomegaly and trace pericardial effusion. 4. Atherosclerosis. 5. Small amount of ascites in the pelvis. 6. Ventriculoperitoneal shunt in place. 7. Moderate scoliosis of the lumbar spine and moderate to severe degenerative change through out the spine. THIS IS AN ELECTRONICALLY VERIFIED FINAL REPORT 12/28/2024 4:40 AM - Electronically signed by Faith Bright M.D. SN: Report ID: [id number] Reading Location: [place] [address] Demetrio Alvarez DO IMG CT PROCEDURES Sheila l Result * POCT glucose (12/27/2024 4:31 PM CDT) Glucose, POC 86 70 - 199 mg/dL Blood 12/27/2024 4:31 PM CDT 12/27/2024 4:31 PM CDT us Demetrio Alvarez DO LAB POCT ORDERABLES - DEVICE Final Result [facility] ([place]) 1 [facility] [place] [address] * Sodium, urine, random (12/27/2024 4:07 PM CDT) Sodium, ur <20 mmol/L [facility] ([place]) Comment: Interpretive Data No reference range established. Current interpretive data was last revised 2018. Urine 12/27/2024 4:07 PM CDT 12/27/2024 4:11 PM CDT Narrative [facility] ([place]) - 12/27/2024 4:16 PM CDT No normal range Demetrio Alvarez DO LAB URINE ORDERABLES F inal Result Performing Organization Address [facility]/ZIP Co de Phone Number [facility] 1 [facility] [place] [address] * Osmolality, urine (12/27/2024 4:07 PM CDT) Osmo, ur 575 mOsm/kg Comment:Testing performed by : [facility], 1 [place] [address] Urine 12/27/2024 4:07 PM CDT 12/27/2024 6:04 PM CDT Demetrio Alvarez DO LAB URINE ORDERABLES F inal Result [facility] 1 [facility] [place] [address] * (ABNORMAL) Sodium level (12/27/2024 11:58 AM CDT) Sodium 122(L) 135 - 145 mmol/L [facility] Blood 12/27/2024 11:5 8 AM CDT 12/27/2024 12:00 PM CDT us Demetrio Alvarez DO LAB BLOOD ORDERABLES F inal Result Performing Organization Address [facility] de Phone Number [facility] ([place]) [address] [place] [address] * Blood gas, venous (12/27/2024 11:58 AM CDT) pH, Venous 7.35 7.32 - 7.43 PCO2, Venous 41 40 - 50 mmHg [facility] ([place]) PO2, Venous 217 mmHg [facility] ([place]) HCO3 Venous, Calculated 22 20 - 30 mmol/L [facility] ([place]) BE, venous -3 mmol/L [facility] ([place]) Comment: Interpretive Data No Reference Range Established Current Interpretive Data was last revised on 2017. Blood 12/27/2024 11:5 8 AM CDT 12/27/2024 12:00 PM CDT [facility] LAB BLOOD ORDERABLES F inal Result Performing Organization Address [facility] de Phone Number [facility] ([place]) [address] [place] [address] * XR CHEST 1 VIEW PORTABLE (12/27/2024 11:36 AM CDT) Anatomical Region Laterality Modality Body, Chest N/A Computed Radiogr aphy 12/27/2024 1:51 PM CDT Narrative 12/27/2024 1:54 PM CDT EXAM DESCRIPTION: XR CHEST 1 VIEW REASON FOR STUDY: New hypoxemia New hypoxemia TECHNIQUE: 1 radiographic view(s) of the chest. COMPARISON: 07/03/2023 FINDINGS: LUNGS: No evidence of pneumothorax. No large pleural effusion identified. There is new vascular congestion. New airspace opacities in the right infrahilar region are suspicious for pneumonia or edema. HEART/MEDIASTINUM: Stable cardiac and mediastinal contours. LINES/TUBES: A CALENDER WIND UP TENDER shunt catheter courses down the right chest. BONES: Partially visualized ACDF. No acute abnormality identified. Degenerative changes of the bilateral shoulders. IMPRESSION: New airspace opacities in the right infrahilar region are suspicious for pneumonia. THIS IS AN ELECTRONICALLY VERIFIED FINAL REPORT 12/27/2024 1:54 PM - Electronically signed by Isar Mendez M.D. MM: MM Report ID: [id number] Reading Location: [id number] Procedure Note Isra Mendez MD - 12/27/2024 EXAM DESCRIPTION: XR CHEST 1 VIEW REASON FOR STUDY: New hypoxemia New hypoxemia TECHNIQUE: 1 radiographic view(s) of the chest. COMPARISON: 07/03/2023 FINDINGS: LUNGS: No evidence of pneumothorax. No large pleural effusionidentified. There is new vascular congestion. New airspace opacities in the right infrahilar region are suspicious for pneumonia or edema. HEART/MEDIASTINUM: Stable cardiac and mediastinal contours. LINES/TUBES: A CALENDER WIND UP TENDER shunt catheter courses down the right chest. BONES: Partially visualized ACDF. No acute abnormality identified. Degenerative changes of the bilateral shoulders. IMPRESSION: New airspace opacities in the right infrahilar region are suspicious for pneumonia. THIS IS AN ELECTRONICALLY VERIFIED FINAL REPORT 12/27/2024 1:54 PM - Electronically signed by Isra Mendez M.D. MM: MM Report ID: [id number] Reading Location: [id number] Demetrio Alvarez DO IMG XR PROCEDURES Sheila l Result * (ABNORMAL) Osmolality, blood (12/27/2024 8:32 AM CDT) Osmo 271(L) 275 - 300 mOsm/kg Comment:Testing performed by : [facility], [address] [facility], [place]., [address] Blood 12/27/2024 8:32 AM CDT 12/27/2024 10:15 AM CDT Demetrio Alvarez DO LAB BLOOD ORDERABLES F inal Result [facility] [place] 1 [facility] Department of Laboratories [place], [place] [id number] * CT Thoracic Spine WO Contrast (12/27/2024 4:46 AM CDT) Anatomical Region Laterality Modality Spine N/A Computed Tomogra phy 12/27/2024 5:01 AM CDT Narrative 12/27/2024 5:03 AM CDT EXAM DESCRIPTION: CT THORACIC SPINE WO CONTRAST REASON FOR STUDY: Bilateral upper extremity weakness Bilateral upper extremity weakness TECHNIQUE: Axial images acquired through the thoracic spine without intravenous contrast. Images reviewed with lung, soft tissue and bone windows. Reconstructed coronal and sagittal MPR images reviewed. Images stored on PACS. Automated exposure control was used as a dose optimization technique for this examination. COMPARISON: 07/03/2023 FINDINGS: VERTEBRAE: Vertebral bodies are normal in height and alignment. Moderate to advanced multilevel disc disease and facet arthropathy. Facet joints congruent. No spinal fracture. Spea-th-eolrvwke multilevel neural foraminal narrowing most pronounced on the right at C7-T1. OTHER OSSEOUS: Visualized clavicles, sternum, scapula, and ribs intact. SOFT TISSUES: Mild dependent atelectasis. Coronary artery calcifications. IMPRESSION: No acute abnormality identified. Ovxw-lj-sdsxesvc multilevel neural foraminal narrowing most pronounced on the right at C7-T1. THIS IS AN ELECTRONICALLY VERIFIED FINAL REPORT 12/27/2024 5:03 AM - Electronically signed by Andrews Ennis M.D. AR: TOÑO Report ID: [id number] Reading Location: [id number] Procedure Note Andrews Ennis MD - 12/27/2024 EXAM DESCRIPTION: CT THORACIC SPINE WO CONTRAST REASON FOR STUDY: Bilateral upper extremity weakness Bilateral upper extremity weakness TECHNIQUE: Axial images acquired through the thoracic spine without intravenous contrast. Images reviewed with lung, soft tissue and bone windows. Reconstructed coronal and sagittal MPR images reviewed. Images stored on PACS. Automated exposure control was used as a dose optimization technique for this examination. COMPARISON: 07/03/2023 FINDINGS: VERTEBRAE: Vertebral bodies are normal in height and alignment.Moderate to advanced multilevel disc disease and facet arthropathy. Facet joints congruent. No spinal fracture. Gzsc-rs-jopqbsld multilevel neural foraminal narrowing most pronounced on the right at C7-T1. OTHER OSSEOUS: Visualized clavicles, sternum, scapula, and ribs intact. SOFT TISSUES: Mild dependent atelectasis. Coronary arterycalcifications. IMPRESSION: No acute abnormality identified. Szkp-lr-qcwahhxd multilevel neuralforaminal narrowing most pronounced on the right at C7-T1. THIS IS AN ELECTRONICALLY VERIFIED FINAL REPORT 12/27/2024 5:03 AM - Electronically signed by Andrews Ennis M.D. AR: TOÑO Report ID: [id number] Reading Location: [id number] Jose Luis Persaud MD IMG CT PROCEDURES Final Result * CT Cervical Spine WO Contrast (12/27/2024 4:46 AM CDT) Anatomical Region Laterality Modality Spine N/A Computed Tomogra phy 12/27/2024 4:49 AM CDT Narrative 12/27/2024 5:01 AM CDT EXAM DESCRIPTION: CT CERVICAL SPINE WO CONTRAST REASON FOR STUDY: Bilateral upper extremity weakness Bilateral upper extremity weakness TECHNIQUE: Axial images through the cervical spine with sagittal and coronal reformatted images. Automated exposure control was used as a dose optimization technique for this examination. COMPARISON: 08/04/2021 FINDINGS: VERTEBRAE: Vertebral bodies are normal in height and alignment. Moderate multilevel disc disease and facet arthropathy. ACDF appears intact. Advanced atlantodental osteoarthritis. Facet joints and craniocervical junction are congruent. No spinal fracture identified. OTHER OSSEOUS STRUCTURES: Visualized ribs, clavicles, and scapula are intact. Visualized skull base and mandible appear normal. SOFT TISSUES: Unremarkable. INTRACRANIAL: Unremarkable. IMPRESSION: No acute abnormality identified. Moderate right-sided C7-T1 neural foraminal narrowing could be symptomatic. THIS IS AN ELECTRONICALLY VERIFIED FINAL REPORT 12/27/2024 5:01 AM - Electronically signed by Andrews LUNDBERG: TOÑO Report ID: [id number] Reading Location: [id number] Procedure Note Andrews Ennis MD - 12/27/2024 EXAM DESCRIPTION: CT CERVICAL SPINE WO CONTRAST REASON FOR STUDY: Bilateral upper extremity weakness Bilateral upper extremity weakness TECHNIQUE: Axial images through the cervical spine with sagittal andcoronal reformatted images. Automated exposure control was used as a doseoptimization technique for this examination. COMPARISON: 08/04/2021 FINDINGS: VERTEBRAE: Vertebral bodies are normal in height and alignment.Moderate multilevel disc disease and facet arthropathy. ACDF appears intact.Advanced atlantodental osteoarthritis. Facet joints and craniocervical junctionare congruent. No spinal fracture identified. OTHER OSSEOUS STRUCTURES: Visualized ribs, clavicles, and scapula areintact. Visualized skull base and mandible appear normal. SOFT TISSUES: Unremarkable. INTRACRANIAL: Unremarkable. IMPRESSION: No acute abnormality identified. Moderate right-sided C7-T1 neuralforaminal narrowing could be symptomatic. THIS IS AN ELECTRONICALLY VERIFIED FINAL REPORT 12/27/2024 5:01 AM - Electronically signed by Andrews Ennis M.D. AR: TOÑO Report ID: [id number] Reading Location: [place] [id number] Jose Luis Persaud MD IMG CT PROCEDURES Final Result * eGFR (12/27/2024 3:39 AM CDT) eGFR 70 >=60 mL/min/1. 73 m2 Comment: Interpretive Data Reference Interval Normal >/= 90 mL/min/1.73m2 Mildly decreased* 60 - 89 mL/min/1.73m2 Mildly to moderately decreased 45 - 59 mL/min/1.73m2 Moderately to severely decreased 30 - 44 mL/min/1.73m2 Severely decreased 15 - 29 mL/min/1.73m2 Kidney Failure < 15 mL/min/1.73m2 *Relative to young adult level Estimated glomerular filtration rate is determined by the 2020 CKD-EPI equation recommended by the National Kidney Foundation (A Unifying Approach to GFR Estimation: Recommendations of the NKF-ASK Task Force on Reassessing the Inclusion of Race in Diagnosing Kidney Disease, JASN 202). The CKD-EPI equation should not be used for patients with unstable renal function and has not been validated in children and those over 70. Current interpretive data was last reviewed 2021. Blood 12/27/2024 3:39 AM CDT 12/27/2024 4:17 AM CDT us Jose Luis Persaud MD LAB BLOOD ORDERABLES Fi nal Result [facility] ([place]) [facility] Department of Laboratories [place], [place] [id number] * (ABNORMAL) Pro B-type natriuretic peptide (12/27/2024 3:39 AM CDT) NT-proBNP 16,744(H) <=450 pg/mL [facility] ([place]) Comment: Interpretive Comments: A. Dyspnea in Acute Care Setting All Ages: < 300 pg/ml, acute heart failure unlikely. < 50 yrs: 300 - 450 pg/ml, further investigation warranted. > 450 pg/ml, acute heart failure likely. 50 - 74 yrs: 300 - 900 pg/ml, further investigation warranted. > 900 pg/ml, acute heart failure likely . > or = 75 yrs: 450 - 1800 pg/ml, further investigation warranted. > 1800 pg/ml, acute heart failure likely. B. Non-acute Setting < 75 yrs < 125 pg/ml, rules out heart failure. > or = 125 pg/ml, further investigation warranted. > or = 75 yrs < 450 pg/ml, rules out heart failure. > or = 450 pg/ml, further investigation warranted. - Knowledge of each individual patient's NT-proBNP range may be more useful than using similar cut-points for every patient. Please note that marked elevations in NT-proBNP levels may be observed in state other than Left Ventricular Congestive Failure, including: acute coronary syndromes, right heart strain/failure (including pulmonary embolism and cor pulmonale), critical illness, renal failure, as well as advanced age. - References: 1. Scarlet ELIZABETH et.al. Eur Heart J. 2006:27:330-337. 2. Kimmy RW, Prasad CLAUDIO. J. AM Surya Cardiol: Cardiovasc Imag. 2009;2: 216- 225. Interpretive Data Last Revised Date: 2017. Blood 12/27/2024 3:39 AM CDT 12/27/2024 10:11 AM CDT Demetrio Brenner [facility] DO LAB BLOOD ORDERABLES F inal Result [facility] ([place]) [facility] Department [place] [address] * (ABNORMAL) CBC with auto differential (12/27/2024 3:39 AM CDT) WBC 7.60 3.80 - 9.90 K/cumm Hgb 11.2(L) 11.9 - 15.5 g/dL [facility] ([place]) Hct 33.2(L) 35.6 - 45.5 % [facility] ([place]) Plt 91(L) 150 - 400 K/cumm [facility] ([place]) MPV 9.8 9.1 - 12.3 fL [facility]) RBC 3.36(L) 3.90 - 5.20 M/cumm [facility] ([place]) MCV 98.8(H) 81.3 - 96.4 fL [facility] ([place]) MCH 33.3 27.1 - 33.3 pg [facility] ([place]) MCHC 33.7 32.3 - 35.7 g/dL [facility]) RDW CV 12.7 11.1 - 14.9 % [facility]) RDW SD 45.9 35.7 - 48.1 fL [facility] [place]) NRBC abs 0.00 0.00 - 0.01 K/cumm [facility] ([place]) Blood 12/27/2024 3:39 AM CDT 12/27/2024 4:16 AM CDT Jose Luis Persaud MD LAB BLOOD ORDERABLES Fi nal Result [facility] ([place]) [facility] Department [place] [address] * (ABNORMAL) Manual Differential (12/27/2024 3:39 AM CDT) Differential Manual Cells Counted 100 [facility] ([place]) Neutrophil abs 6.69(H) 1.50 - 6.50 K/cumm [facility] [place]) Lymphocyte abs 0.61(L) 0.80 - 3.30 K/cumm [facility] ([place]) Monocyte abs 0.30 0.20 - 0.80 K/cumm [facility] ([place]) Neutrophil pct 78.0 % [facility] ([place]) Comment: Interpretive Data Percent cell count reference ranges are not reported, since discordance with absolute values may lead to misinterpretation of CBC data. Current Interpretive Data was last revised on 2017. Lymphocyte pct 8.0 % [facility] ([place]) Comment: Interpretive Data Percent cell count reference ranges are not reported, since discordance with absolute values may lead to misinterpretation of CBC data. Current Interpretive Data was last revised on 2017. Monocyte pct 4.0 % [facility] ([place]) Comment: Interpretive Data Percent cell count reference ranges are not reported, since discordance with absolute values may lead to misinterpretation of CBC data. Current Interpretive Data was last revised on 2017. Band Neutrophil pct 10.0(H) 0.0 - 5.0 % [facility] ([place]) RBC morphology Consistent with RBC Indicies [facility] ([place]) Platelet estimate Decreased(A) [facility] ([place]) Blood 12/27/2024 3:39 AM CDT 12/27/2024 4:16 AM CDT Jose Luis Persaud MD LAB BLOOD ORDERABLES Fi nal Result [facility] ([place]) [facility] [place] [address] * (ABNORMAL) Comprehensive metabolic panel (12/27/2024 3:39 AM CDT) Sodium 124(L) 135 - 145 mmol/L [facility] ([place]) Potassium, pl 4.8 3.3 - 4.9 mmol/L [facility] ([place]) Chloride 94(L) 97 - 110 mmol/L [facility]) CO2 21(L) 22 - 32 mmol/L [facility] ([place]) Anion gap 9 2 - 15 mmol/L [facility] ([place]) BUN 19 6 - 25 mg/dL [facility] ([place]) Creatinine 0.85 0.60 - 1.10 mg/dL [facility] ([place]) Glucose 114 70 - 199 mg/dL [facility] ([place]) Comment: Interpretive Data Fasting glucose >/= 126 mg/dl is diagnostic for diabetes. Fasting is defined as no caloric intake for at least 8 hours. Fasting glucose between 100 mg/dl to 125 mg/dl is diagnostic of prediabetes. In a patient with classic symptoms of hyperglycemia or hyperglycemic crisis, a random glucose >/= 200 mg/dl is diagnostic for diabetes. In the absence of unequivocal hyperglycemia, results should be confirmed by repeat testing. The classification and Diagnosis of Diabetes Diabetes Care 2021; 46: S19-S40. Current interpretive data was last revised 2022. Calcium 8.1(L) 8.5 - 10.3 mg/dL [facility] ([place]) Bilirubin, total 0.4 0.1 - 1.2 mg/dL [facility] ([place]) Protein, pl 5.8(L) 6.5 - 8.5 g/dL [facility] ([place]) Albumin 3.2(L) 3.5 - 5.0 g/dL [facility] ([place]) Alk phos 95 40 - 130 Units/L [facility] ([place]) ALT 24 7 - 45 Units/L [facility] [place]) AST 28 10 - 45 Units/L [facility] ([place]) Blood 12/27/2024 3:39 AM CDT 12/27/2024 4:17 AM CDT us Jose Luis Persaud MD LAB BLOOD ORDERABLES Fi nal Result Performing Organization Address City/[facility]/ZIP Co de Phone Number [facility] [place]) 1 [facility] [place] [address] * POCT glucose (12/26/2024 10:04 AM CDT) Glucose, POC 118 70 - 199 mg/dL Blood 12/26/2024 10:0 4 AM CDT 12/26/2024 10:04 AM CDT us Maximus Crespo II, MD LAB POCT ORDERABLES - DEVICE Final Result Performing Organization Address [facility] de Phone Number [facility] ([place]) 1 [facility] [place] [address] * eGFR (12/26/2024 3:59 AM CDT) eGFR 84 >=60 mL/min/1. 73 m2 Comment: Interpretive Data Reference Interval Normal >/= 90 mL/min/1.73m2 Mildly decreased* 60 - 89 mL/min/1.73m2 Mildly to moderately decreased 45 - 59 mL/min/1.73m2 Moderately to severely decreased 30 - 44 mL/min/1.73m2 Severely decreased 15 - 29 mL/min/1.73m2 Kidney Failure < 15 mL/min/1.73m2 *Relative to young adult level Estimated glomerular filtration rate is determined by the 2020 CKD-EPI equation recommended by the National Kidney Foundation (A Unifying Approach to GFR Estimation: Recommendations of the NKF-ASK Task Force on Reassessing the Inclusion of Race in Diagnosing Kidney Disease, JASN 2020). The CKD-EPI equation should not be used for patients with unstable renal function and has not been validated in children and those over 70. Current interpretive data was last reviewed 2021. Blood 12/26/2024 3:59 AM CDT 12/26/2024 4:11 AM CDT us Jose Luis Persaud MD LAB BLOOD ORDERABLES Fi nal Result [facility] ([place]) [facility] Department [place] [address] * (ABNORMAL) Differential, auto (12/26/2024 3:59 AM CDT) Neutrophil abs 10.93(H) 1.50 - 6.50 K/cumm Imm gran abs 0.07 0.00 - 0.10 K/cumm [facility] ([place]) Lymphocyte abs 0.18(L) 0.80 - 3.30 K/cumm [facility] ([place]) Monocyte abs 0.78 0.20 - 0.80 K/cumm [facility] ([place]) Eosinophil abs 0.01 0.00 - 0.50 K/cumm [facility] ([place]) Basophil abs 0.01 0.00 - 0.10 K/cumm [facility] ([place]) Neutrophil pct 91.2 % [facility] ([place]) Comment: Interpretive Data Percent cell count reference ranges are not reported, since discordance with absolute values may lead to misinterpretation of CBC data. Current Interpretive Data was last revised on 2017. Imm gran pct 0.6 % [facility] ([place]) Comment: Interpretive Data Percent cell count reference ranges are not reported, since discordance with absolute values may lead to misinterpretation of CBC data. Current Interpretive Data was last revised on 2017. Lymphocyte pct 1.5 % [facility] ([place]) Comment: Interpretive Data Percent cell count reference ranges are not reported, since discordance with absolute values may lead to misinterpretation of CBC data. Current Interpretive Data was last revised on 2017. Monocyte pct 6.5 % [facility] ([place]) Comment: Interpretive Data Percent cell count reference ranges are not reported, since discordance with absolute values may lead to misinterpretation of CBC data. Current Interpretive Data was last revised on 2017. Eosinophil pct 0.1 % [facility] ([place]) Comment: Interpretive Data Percent cell count reference ranges are not reported, since discordance with absolute values may lead to misinterpretation of CBC data. Current Interpretive Data was last revised on 2017. Basophil pct 0.1 % [facility] ([place]) Comment: Interpretive Data Percent cell count reference ranges are not reported, since discordance with absolute values may lead to misinterpretation of CBC data. Current Interpretive Data was last revised on 2017. Blood 12/26/2024 3:59 AM CDT 12/26/2024 4:11 AM CDT us Jose Luis Persaud MD LAB BLOOD ORDERABLES Fi nal Result [facility] ([place]) [facility] [place] [address] * (ABNORMAL) CBC with auto differential (12/26/2024 3:59 AM CDT) WBC 11.98(H) 3.80 - 9.90 K/cumm Hgb 10.8(L) 11.9 - 15.5 g/dL [facility] ([place]) Hct 31.6(L) 35.6 - 45.5 % [facility] ([place]) Plt 113(L) 150 - 400 K/cumm [facility] ([place]) MPV 9.8 9.1 - 12.3 fL [facility] ([place]) RBC 3.24(L) 3.90 - 5.20 M/cumm [facility] ([place]) MCV 97.5(H) 81.3 - 96.4 fL [facility] ([place]) MCH 33.3 27.1 - 33.3 pg [facility] ([place]) MCHC 34.2 32.3 - 35.7 g/dL [facility] ([place]) RDW CV 12.4 11.1 - 14.9 % [facility] ([place]) RDW SD 44.5 35.7 - 48.1 fL [facility] ([place]) NRBC abs 0.00 0.00 - 0.01 K/cumm [facility] ([place]) Blood 12/26/2024 3:59 AM CDT 12/26/2024 4:11 AM CDT Jose Luis Persaud MD LAB BLOOD ORDERABLES Fi nal Result [facility] ([place]) [facility] [place] [address] * Magnesium (12/26/2024 3:59 AM CDT) Magnesium 1.8 1.4 - 2.5 mg/dL [facility] ([place]) Blood 12/26/2024 3:59 AM CDT 12/26/2024 4:11 AM CDT Daytonhazel Jamey Persaud MD LAB BLOOD ORDERABLES Fi nal Result Performing Organization Address City/[facility]/ZIP Co de Phone Number [facility] ([place]) [facility] [place] [place] [address] * (ABNORMAL) Comprehensive metabolic panel (12/26/2024 3:59 AM CDT) Sodium 128(L) 135 - 145 mmol/L [facility] Potassium, pl 4.2 3.3 - 4.9 mmol/L [facility] Chloride 98 97 - 110 mmol/L [facility] CO2 18(L) 22 - 32 mmol/L [facility] ([place]) Anion gap 12 2 - 15 mmol/L [facility] BUN 16 6 - 25 mg/dL [facility] Creatinine 0.73 0.60 - 1.10 mg/dL [facility] ([place]) Glucose 139 70 - 199 mg/dL [facility] ([place]) Comment: Interpretive Data Fasting glucose >/= 126 mg/dl is diagnostic for diabetes. Fasting is defined as no caloric intake for at least 8 hours. Fasting glucose between 100 mg/dl to 125 mg/dl is diagnostic of prediabetes. In a patient with classic symptoms of hyperglycemia or hyperglycemic crisis, a random glucose >/= 200 mg/dl is diagnostic for diabetes. In the absence of unequivocal hyperglycemia, results should be confirmed by repeat testing. The classification and Diagnosis of Diabetes Diabetes Care 2021; 46: S19-S40. Current interpretive data was last revised 2022. Calcium 8.5 8.5 - 10.3 mg/dL [facility] ([place]) Bilirubin, total 0.5 0.1 - 1.2 mg/dL [facility] ([place]) Protein, pl 5.9(L) 6.5 - 8.5 g/dL [facility] ([place]) Albumin 3.5 3.5 - 5.0 g/dL [facility] ([place]) Alk phos 67 40 - 130 Units/L [facility] ([place]) ALT 18 7 - 45 Units/L [facility] ([place]) AST 23 10 - 45 Units/L [facility] ([place]) Blood 12/26/2024 3:59 AM CDT 12/26/2024 4:11 AM CDT us Jose Luis Persaud MD LAB BLOOD ORDERABLES Fi nal Result [facility] ([place]) [facility] Department [place] [address] * (ABNORMAL) Urinalysis reflex to microscopic and culture Urine (12/25/2024 3:03 PM CDT) Color, ur Yellow Yellow Clarity, ur Clear Clear [facility] ([place]) Specific gravity, ur 1.008 1.003 - 1.030 [facility] ([place]) pH, urine 6.5 [facility] ([place]) Comment: Interpretive Data U rine pH is affected by diet, medications, systemic acid-base disturbances, and renal tubular function. pH may affect urinary stone formation. For example, urine pH below 6.0 may help reduce the tendency for calcium phosphate stones and pH greater than 6.0 may reduce the tendency for uric acid stone formation. Source: [facility] [employer] Current Interpretive Data was last revised on 2017 Protein, ur ql Negative Negative [facility] ([place]) Glucose, ur ql Negative Negative [facility] ([place]) Ketones, ur 1+(A) Negative [facility] ([place]) Bilirubin, ur Negative Negative [facility] ([place]) Blood, ur Negative Negative [facility] ([place]) Urobilinogen, ur <2.0 <2.0 mg/dL [facility] ([place]) Nitrite, ur Negative Negative [facility] ([place]) Leukocyte esterase, ur Negative Negative [facility] ([place]) UA reflex comment Reflex conditions for microscopic UA and culture not met. [facility] ([place]) Urine 12/25/2024 3:03 PM CDT 12/25/2024 3:07 PM CDT Gerson Kaplan MD LAB MICROBIOLOGY - GENERAL ORD ERABLES Final Result [facility] ([place]) [facility] [place] [address] * Protime-INR (12/25/2024 12:20 PM CDT) PT 12.9 10.2 - 13.5 sec [facility] ([place]) INR 1.14 0.90 - 1.20 [facility] ([place]) Comment: Interpretive data Oral anticoagulant therapeutic ranges: Venous thromboembolism prophylaxis or treatment: 2.0-3.0 CARDIOLOGY Standard range: 2.0-3.0 High-intensity range: 2.5-3.5 Refer to indication-specific guidelines for appropriate target ranges for prosthetic heart valve replacement. Current interpretive data was last revised on 2019. Blood 12/25/2024 12:2 0 PM CDT 12/25/2024 12:25 PM CDT Gerson Kaplan MD LAB BLOOD ORDERABLES Final Res ult [facility] ([place]) [facility] [place] [place] [address] * CT Lumbar Spine WO Contrast (12/25/2024 6:43 AM CDT) Anatomical Region Laterality Modality Spine N/A Computed Tomogra phy 12/25/2024 7:06 AM CDT Narrative 12/25/2024 7:22 AM CDT EXAM DESCRIPTION: CT LUMBAR SPINE WO CONTRAST REASON FOR STUDY: Low back pain, cauda equina syndrome suspected pt woke up around 0200 with back pain, took tylenol and went back to sleep, but woke back up at 0300 with 10/10 pain still. Has also been nauseous since Friday and saw PCP on 12/23 for that. TECHNIQUE: Axial images acquired through the lumbar spine without intravenous contrast. Reconstructed coronal and sagittal MPR images reviewed. All images stored on PACS. Automated exposure control was used as a dose optimization technique for this examination. COMPARISON: CT of the abdomen and pelvis dated 11/16/2024 and lumbar radiographs dated 12/16/2024. FINDINGS: SEGMENTATION: No transitional anatomy. The lowest well-developed disc space is labeled L5-S1. ALIGNMENT: Levoconvex curvature of the lumbar spine with apex at L2-L3. VERTEBRAE: No acute fracture. Vertebral heights well-maintained. DISC HEIGHT: Moderate to severe degenerative changes are seen throughout the lower thoracic and lumbar spine with disc space narrowing with vacuum disc phenomenon, endplate sclerosis and cyst formation, and osteophytosis. There is concomitant multilevel facet arthropathy resulting in variable osseous foraminal and spinal canal stenoses, most advanced with moderate to severe bilateral osseous foraminal stenoses at L5-S1 and efty-[id number]-hfnezefz osseous spinal canal stenosis at L3-L4. HARDWARE: None in the spine. VISUALIZED RIBS: No fractures. SOFT TISSUES: No significant or acute finding in adjacent soft tissues. OTHER: Aortoiliac atherosclerosis is noted. No other significant finding. IMPRESSION: 1. No acute osseous abnormality. 2. Moderate to severe multilevel lumbar spondylosis; as detailed. 3. Lumbar levoscoliosis. THIS IS AN ELECTRONICALLY VERIFIED FINAL REPORT 12/25/2024 7:22 AM - Electronically signed by Wilson Gallegos M.D. MF: [id number] Report ID: [id number] Reading Location: [id number] Procedure Note Wilson Gallegos, DO - 12/25/2024 EXAM DESCRIPTION: CT LUMBAR SPINE WO CONTRAST REASON FOR STUDY: Low back pain, cauda equina syndrome suspected pt woke up around 0200 with back pain, took tylenol and went back tosleep, but woke back up at 0300 with 10/10 pain still. Has also been nauseoussince Anastacia and saw PCP on 12/23 for that. TECHNIQUE: Axial images acquired through the lumbar spine withoutintravenous contrast. Reconstructed coronal and sagittal MPR images reviewed. Allimages stored on PACS. Automated exposure control was used as a dose optimization technique forthis examination. COMPARISON: CT of the abdomen and pelvis dated 11/16/2024 and lumbar radiographs dated 12/16/2024. FINDINGS: SEGMENTATION: No transitional anatomy. The lowest well-developed discspace is labeled L5-S1. ALIGNMENT: Levoconvex curvature of the lumbar spine with apex at L2-L3. VERTEBRAE: No acute fracture. Vertebral heights well-maintained. DISC HEIGHT: Moderate to severe degenerative changes are seen throughoutthe lower thoracic and lumbar spine with disc space narrowing with vacuum disc phenomenon, endplate sclerosis and cyst formation, and osteophytosis.There is concomitant multilevel facet arthropathy resulting in variable osseous foraminal and spinal canal stenoses, most advanced with moderate to severe bilateral osseous foraminal stenoses at L5-S1 and kzkx-wq-lddqbyky osseous spinal canal stenosis at L3-L4. HARDWARE: None in the spine. VISUALIZED RIBS: No fractures. SOFT TISSUES: No significant or acute finding in adjacent soft tissues. OTHER: Aortoiliac atherosclerosis is noted. No other significantfinding. IMPRESSION: 1. No acute osseous abnormality. 2. Moderate to severe multilevel lumbar spondylosis; as detailed. 3. Lumbar levoscoliosis. THIS IS AN ELECTRONICALLY VERIFIED FINAL REPORT 12/25/2024 7:22 AM - Electronically signed by Wilson Gallegos M.D. MF: [id number] Report ID: [id number] Reading Location: [place] [address] Gerson Kaplan MD [facility] CT PROCEDURES Final Result * eGFR (12/25/2024 6:13 AM CDT) eGFR 79 >=60 mL/min/1. 73 m2 Comment: Interpretive Data Reference Interval Normal >/= 90 mL/min/1.73m2 Mildly decreased* 60 - 89 mL/min/1.73m2 Mildly to moderately decreased 45 - 59 mL/min/1.73m2 Moderately to severely decreased 30 - 44 mL/min/1.73m2 Severely decreased 15 - 29 mL/min/1.73m2 Kidney Failure < 15 mL/min/1.73m2 *Relative to young adult level Estimated glomerular filtration rate is determined by the 2020 CKD-EPI equation recommended by the National Kidney Foundation (A Unifying Approach to GFR Estimation: Recommendations of the NKF-ASK Task Force on Reassessing the Inclusion of Race in Diagnosing Kidney Disease, JASN 2020). The CKD-EPI equation should not be used for patients with unstable renal function and has not been validated in children and those over 70. Current interpretive data was last reviewed 2021. Blood 12/25/2024 6:13 AM CDT 12/25/2024 6:29 AM CDT us Gerson Kaplan MD LAB BLOOD ORDERABLES Final Res ult [facility] ([place]) [facility] Department [place] [address] * (ABNORMAL) Differential, auto (12/25/2024 6:13 AM CDT) Neutrophil abs 2.63 1.50 - 6.50 K/cumm Imm gran abs 0.01 0.00 - 0.10 K/cumm [facility] ([place]) Lymphocyte abs 0.12(L) 0.80 - 3.30 K/cumm [facility] ([place]) Monocyte abs 0.04(L) 0.20 - 0.80 K/cumm [facility] ([place]) Eosinophil abs 0.01 0.00 - 0.50 K/cumm [facility] ([place]) Basophil abs 0.01 0.00 - 0.10 K/cumm [facility] ([place]) Neutrophil pct 93.1 % [facility] ([place]) Comment: Interpretive Data Percent cell count reference ranges are not reported, since discordance with absolute values may lead to misinterpretation of CBC data. Current Interpretive Data was last revised on 2017. Imm gran pct 0.4 % [facility] ([place]) Comment: Interpretive Data Percent cell count reference ranges are not reported, since discordance with absolute values may lead to misinterpretation of CBC data. Current Interpretive Data was last revised on 2017. Lymphocyte pct 4.3 % [facility] ([place]) Comment: Interpretive Data Percent cell count reference ranges are not reported, since discordance with absolute values may lead to misinterpretation of CBC data. Current Interpretive Data was last revised on 2017. Monocyte pct 1.4 % [facility] ([place]) Comment: Interpretive Data Percent cell count reference ranges are not reported, since discordance with absolute values may lead to misinterpretation of CBC data. Current Interpretive Data was last revised on 2017. Eosinophil pct 0.4 % [facility] ([place]) Comment: Interpretive Data Percent cell count reference ranges are not reported, since discordance with absolute values may lead to misinterpretation of CBC data. Current Interpretive Data was last revised on 2017. Basophil pct 0.4 % [facility] ([place]) Comment: Interpretive Data Percent cell count reference ranges are not reported, since discordance with absolute values may lead to misinterpretation of CBC data. Current Interpretive Data was last revised on 2017. Blood 12/25/2024 6:13 AM CDT 12/25/2024 6:28 AM CDT us Gerson Kaplan MD LAB BLOOD ORDERABLES Final Res ult [facility] ([place]) [facility] Department [place] [address] * (ABNORMAL) CBC with auto differential (12/25/2024 6:13 AM CDT) WBC 2.82(L) 3.80 - 9.90 K/cumm Hgb 11.7(L) 11.9 - 15.5 g/dL [facility] ([place]) Hct 34.0(L) 35.6 - 45.5 % [facility] ([place]) Plt 126(L) 150 - 400 K/cumm [facility] ([place]) MPV 9.6 9.1 - 12.3 fL [facility] ([place]) RBC 3.47(L) 3.90 - 5.20 M/cumm [facility] ([place]) MCV 98.0(H) 81.3 - 96.4 fL [facility] ([place]) MCH 33.7(H) 27.1 - 33.3 pg [facility] ([place]) MCHC 34.4 32.3 - 35.7 g/dL [facility] ([place]) RDW CV 12.5 11.1 - 14.9 % [facility] ([place]) RDW SD 44.8 35.7 - 48.1 fL [facility] ([place]) NRBC abs 0.00 0.00 - 0.01 K/cumm [facility] ([place]) Blood 12/25/2024 6:13 AM CDT 12/25/2024 6:28 AM CDT us Gerson Kaplan MD LAB BLOOD ORDERABLES Final Res ult [facility] ([place]) [facility] Department of Laboratories [place] [id number] * (ABNORMAL) Comprehensive metabolic panel (12/25/2024 6:13 AM CDT) Sodium 132(L) 135 - 145 mmol/L [facility] Potassium, pl 4.3 3.3 - 4.9 mmol/L [facility] ([place]) Chloride 99 97 - 110 mmol/L [facility] ([place]) CO2 21(L) 22 - 32 mmol/L [facility] ([place]) Anion gap 12 2 - 15 mmol/L [facility] BUN 16 6 - 25 mg/dL [facility] ([place]) Creatinine 0.77 0.60 - 1.10 mg/dL [facility] ([place]) Glucose 150 70 - 199 mg/dL [facility] ([place]) Comment: Interpretive Data Fasting glucose >/= 126 mg/dl is diagnostic for diabetes. Fasting is defined as no caloric intake for at least 8 hours. Fasting glucose between 100 mg/dl to 125 mg/dl is diagnostic of prediabetes. In a patient with classic symptoms of hyperglycemia or hyperglycemic crisis, a random glucose >/= 200 mg/dl is diagnostic for diabetes. In the absence of unequivocal hyperglycemia, results should be confirmed by repeat testing. The classification and Diagnosis of Diabetes Diabetes Care 2021; 46: S19-S40. Current interpretive data was last revised 2022. Calcium 9.2 8.5 - 10.3 mg/dL [facility] ([place]) Bilirubin, total 0.9 0.1 - 1.2 mg/dL [facility] ([place]) Protein, pl 6.5 6.5 - 8.5 g/dL [facility] ([place]) Albumin 4.0 3.5 - 5.0 g/dL [facility] ([place]) Alk phos 86 40 - 130 Units/L [facility] ([place]) ALT 21 7 - 45 Units/L [facility] ([place]) AST 28 10 - 45 Units/L [facility] ([place]) Blood 12/25/2024 6:13 AM CDT 12/25/2024 6:29 AM CDT us Gerson Kaplan MD LAB BLOOD ORDERABLES Final Res ult Performing Organization Address City/State/[facility] Co de Phone Number [facility] ([place]) [facility] Department [place] [address] * Sodium, urine, random (12/23/2024 10:33 AM CDT) Sodium, ur 80 mmol/L Comment: Interpretive Data No reference range established. Current interpretive data was last revised 2018. Testing performed by: [facility], [address] [place] [address], [place]., [address] Urine 12/23/2024 10:3 3 AM CDT 12/23/2024 1:19 PM CDT Narrative [facility] ([place]) - 12/23/2024 2:16 PM CDT No normal range No normal range Joy Garner NP LAB URINE ORDERABLES Final Re sult [facility] ([place]) [facility] Department [place] [address] * ACTH (12/23/2024 10:33 AM CDT) ACTH 60.3 7.0 - 63.0 pg/mL Comment:Testing performed by : [facility], [address] [place] [address]., [address] Blood 12/23/2024 10:3 3 AM CDT 12/24/2024 11:27 AM CDT Joy Garner [employer] LAB BLOOD ORDERABLES Final Re [place] Performing Organization Address City/[facility] Co de Phone Number [facility] ([place]) [facility] Department [place] [address] * eGFR (12/23/2024 10:31 AM CDT) eGFR 63 >=60 mL/min/1. 73 m2 Comment: Interpretive Data Reference Interval Normal >/= 90 mL/min/1.73m2 Mildly decreased* 60 - 89 mL/min/1.73m2 Mildly to moderately decreased 45 - 59 mL/min/1.73m2 Moderately to severely decreased 30 - 44 mL/min/1.73m2 Severely decreased 15 - 29 mL/min/1.73m2 Kidney Failure < 15 mL/min/1.73m2 *Relative to young adult level Estimated glomerular filtration rate is determined by the 2020 CKD-EPI equation recommended by the National Kidney Foundation (A Unifying Approach to GFR Estimation: Recommendations of the NKF-ASK Task Force on Reassessing the Inclusion of Race in Diagnosing Kidney Disease, JASN 2020). The CKD-EPI equation should not be used for patients with unstable renal function and has not been validated in children and those over 70. Current interpretive data was last reviewed 2021. Testing performed by: [facility], [address] [place] [address]., [address] Blood 12/23/2024 10:3 1 AM CDT 12/23/2024 3:16 PM CDT Joy Garner [employer] LAB BLOOD ORDERABLES Final Re sult Performing Organization Address [facility]/ZIP Co de Phone Number [facility] ([place]) 1 [facility] [place] [address] * Osmolality, urine (12/23/2024 10:31 AM CDT) Osmo, ur 629 mOsm/kg Comment:Testing performed by : [facility], [address] [facility], [address] Urine 12/23/2024 10:3 1 AM CDT 12/23/2024 6:11 PM CDT Joy Garner [employer] LAB URINE ORDERABLES Final Re sult Performing Organization Address [facility] de Phone Number [facility] ([place]) 1 [place] [address] * TSH (12/23/2024 10:31 AM CDT) [facility] Thyroid Stimulating Hormone 2.75 0.30 - 4.20 mcIUnit/mL Comment:Testing performed by : [address] [address] Blood 12/23/2024 10:3 1 AM CDT 12/23/2024 1:46 PM CDT Joy Garner [employer] LAB BLOOD ORDERABLES Final Re sult Performing Organization Address [facility] Co de Phone Number [facility] ([place]) 1 [place] [address] * T4, free (12/23/2024 10:31 AM CDT) [facility] Free T4 1.44 0.90 - 1.70 ng/dL Comment:Testing performed by : [address], [facility] [place], [address] Blood 12/23/2024 10:3 1 AM CDT 12/23/2024 1:46 PM CDT Joy Garner [employer] LAB BLOOD ORDERABLES Final Re sult [facility] ([place]) [facility] Department [place] [address] * Osmolality, blood (12/23/2024 10:31 AM CDT) Osmo 281 275 - 300 mOsm/kg Comment:Testing performed by : [facility], [address] [place] [address], [address] Blood 12/23/2024 10:3 1 AM CDT 12/23/2024 6:11 PM CDT Joy Garner [employer] LAB BLOOD ORDERABLES Final Re sult Performing Organization Address [facility]/ZIP Co de Phone Number [facility] ([place]) 1 [place] [address] * (ABNORMAL) Cortisol (12/23/2024 10:31 AM CDT) Cortisol 27.0(H) 4.8 - 19.5 mcg/dl Comment: Interpretive Data Normal Range: 4.8 - 19.5 mcg/dL; Evening: Half of morning value. This analyte undergoes marked diurnal variation. Ranges indicated apply to morning specimens. Current interpretive data was last revised 2018. Testing performed by: [facility], [address] [place] [address], [place]., [address] Blood 12/23/2024 10:3 1 AM CDT 12/23/2024 1:46 PM CDT Joy Garner [employer] LAB BLOOD ORDERABLES Final Re sult [facility] ([place]) 1 [facility] [place] [address] * (ABNORMAL) Comprehensive metabolic panel (12/23/2024 10:31 AM CDT) Sodium 131(L) 135 - 145 mmol/L Comment:Testing performed by : [address] [address] Potassium, pl 4.5 3.3 - 4.9 mmol/L [facility] ([place]) Comment:Testing performed by : [address] [address] Chloride 96(L) 97 - 110 mmol/L [facility] ([place]) Comment:Testing performed by : [address], [address] CO2 26 22 - 32 mmol/L [facility] ([place]) Comment:Testing performed by : [address], [address] Anion gap 9 2 - 15 mmol/L [facility] ([place]) Comment:Testing performed by : [address], [address] BUN 15 6 - 25 mg/dL [facility] ([place]) Comment:Testing performed by : [address], [address] Creatinine 0.93 0.60 - 1.10 mg/dL [facility] ([place]) Comment:Testing performed by : [address], [address] Glucose 114 70 - 199 mg/dL [facility] ([place]) Comment: Interpretive Data Fasting glucose >/= 126 mg/dl is diagnostic for diabetes. Fasting is defined as no caloric intake for at least 8 hours. Fasting glucose between 100 mg/dl to 125 mg/dl is diagnostic of prediabetes. In a patient with classic symptoms of hyperglycemia or hyperglycemic crisis, a random glucose >/= 200 mg/dl is diagnostic for diabetes. In the absence of unequivocal hyperglycemia, results should be confirmed by repeat testing. The classification and Diagnosis of Diabetes Diabetes Care 2021; 46: S19-S40. Current interpretive data was last revised 2022. Testing performed by: [address], [address] Calcium 9.4 8.5 - 10.3 mg/dL [facility] ([place]) Comment:Testing performed by : [facility], [address] [place] [address]., [address] Bilirubin, total 0.5 0.1 - 1.2 mg/dL [facility] ([place]) Comment:Testing performed by : [facility], [address] [place] [address], [address] Protein, pl 6.7 6.5 - 8.5 g/dL [facility] ([place]) Comment:Testing performed by : [facility], [address] [place] [address], [address] Albumin 4.3 3.5 - 5.0 g/dL [facility] ([place]) Comment:Testing performed by : [facility], [address] [place] [address], [address] Alk phos 84 40 - 130 Units/L [facility] ([place]) Comment:Testing performed by : [facility], [address] [place] [address], [address] ALT 17 7 - 45 Units/L [facility] ([place]) Comment:Testing performed by : [facility], [address] [place] [address], [address] AST 29 10 - 45 Units/L [facility] ([place]) Comment:Testing performed by : [facility], [address] [place] [address], [address] Blood 12/23/2024 10:3 1 AM CDT 12/23/2024 1:46 PM CDT Joy Garner NP LAB BLOOD ORDERABLES Final Re sult [facility] ([place]) [facility] Department [place] [address] * eGFR (12/21/2024 8:35 AM CDT) eGFR 66 >=60 mL/min/1. 73 m2 Comment: Interpretive Data Reference Interval Normal >/= 90 mL/min/1.73m2 Mildly decreased* 60 - 89 mL/min/1.73m2 Mildly to moderately decreased 45 - 59 mL/min/1.73m2 Moderately to severely decreased 30 - 44 mL/min/1.73m2 Severely decreased 15 - 29 mL/min/1.73m2 Kidney Failure < 15 mL/min/1.73m2 *Relative to young adult level Estimated glomerular filtration rate is determined by the 2020 CKD-EPI equation recommended by the National Kidney Foundation (A Unifying Approach to GFR Estimation: Recommendations of the NKF-ASK Task Force on Reassessing the Inclusion of Race in Diagnosing Kidney Disease, JASN 2020). The CKD-EPI equation should not be used for patients with unstable renal function and has not been validated in children and those over 70. Current interpretive data was last reviewed 2021. Blood 12/21/2024 8:35 AM CDT 12/21/2024 11:16 AM CDT Joy Garner [employer] LAB BLOOD ORDERABLES Final Re sult Performing Organization Address [facility] Co de Phone Number [facility] [address] [place] [address] * Vitamin D 25 hydroxy (12/21/2024 8:35 AM CDT) Vitamin D 25-OH 62.0 30.0 - 80.0 ng/mL Blood 12/21/2024 8:35 AM CDT 12/21/2024 11:16 AM CDT Joy Garner [employer] LAB BLOOD ORDERABLES Final Re sult Performing Organization Address [facility] Co de Phone Number [address] [place] [address] * (ABNORMAL) Lipid panel (12/21/2024 8:35 AM CDT) Cholesterol 207(H) 30 - 199 mg/dL Comment: Interpretive Data Ages < or = 19 years Acceptable: <170 mg/dL Borderline high: 170-199 mg/dL High: >or= 200 mg/dL Ages > or = 20 years Desirable: <200 mg/dL Borderline high: 200-239 mg/dL High: >or= 240 mg/dL Literature References: 1. Expert Panel on Integrated Guidelines for Cardiovascular Health and Risk Reduction in Children and Adolescents. Pediatrics 2011;128:S213 2. NCEP Expert Panel. Circulation 2004;110:227 Current Interpretive Data was last revised on 2017. Triglycerides 37 <=149 mg/dL [facility] Comment: Interpretive Data Ages < or = 9 years Acceptable: <75 mg/dL Borderline high: 75-99 mg/dL High: >or= 100 mg/dL Ages 10 to 20 years Acceptable: <90 mg/dL Borderline high: 90-129 mg/dL High: >or= 130 mg/dL Ages > or = 20 years Desirable: <150 mg/dL Borderline high: 150-199 mg/dL High: 200-499 mg/dL Very high: >or= 499 mg/dL Literature References: 1. Expert Panel on Integrated Guidelines for Cardiovascular Health and Risk Reduction in Children and Adolescents. Pediatrics 2011;128:S213 2. NCEP Expert Panel. Circulation 2004;110:227 Current Interpretive Data was last revised on 2017. HDL 102 >=40 mg/dL [facility] Comment: Interpretive Data Ages < or = 19 years Acceptable: >45 mg/dL Borderline low: 40-45 mg/dL Low: <40 mg/dL Ages > or = 20 years Desirable: >or= 60 mg/dL Low: <40 mg/dL Literature References: 1. Expert Panel on Integrated Guidelines for Cardiovascular Health and Risk Reduction in Children and Adolescents. Pediatrics 2011;128:S213 2. NCEP Expert Panel. Circulation 2004;110:227 Current Interpretive Data was last revised on 2017. LDL, calculated 98 <=129 mg/dL [facility] Comment: Interpretive Data Ages < or = 19 years Acceptable: <110 mg/dL Borderline high: 110-129 mg/dL High: >or= 130 mg/dL Ages > or = 20 years Optimal: <100 mg/dL Near optimal: 100-129 mg/dL Borderline high: 130-159 mg/dL High: >160 mg/dL Calculated using the [place] LDL-C estimating equation. This equation was implemented on 2023. Prior to this date LDL-C was estimated using the Friedewald equation. Literature References: 1. Expert Panel on Integrated Guidelines for Cardiovascular Health and Risk Reduction in Children and Adolescents. Pediatrics 2011;128:S213 2. NCEP Expert Panel. Circulation 2004;110:227 3. Erik M et al. WOODY Cardiol. 2020 August 12;5(5):540-548. doi: 10.1001/jamacardio.2020.0013 Current Interpretive Data was last revised on 2023. Non-HDL Cholesterol 105 mg/dL [facility] Comment: Interpretive Data Ages < or = 19 years Acceptable: <120 mg/dL Borderline high: 120-144 mg/dL High: >145 mg/dL Ages > or = 20 years When triglycerides are >200 mg/dL, Non-HDL cholesterol is a secondary target of therapy with treatment goals that are 30 mg/dL greater than the LDL cholesterol target. Literature References: 1. Expert Panel on Integrated Guidelines for Cardiovascular Health and Risk Reduction in Children and Adolescents. Pediatrics 2011;128:S213 2. NCEP Expert Panel. Circulation 2004;110:227 Current Interpretive Data was last revised on 2017. Chol/HDL ratio 2 [facility] Blood 12/21/2024 8:35 AM CDT 12/21/2024 11:16 AM CDT us Pascual Connor MD LAB BLOOD ORDERABLES Sheila hickman Result [facility] [address] [facility] Department [place] [address] * (ABNORMAL) Comprehensive metabolic panel (12/21/2024 8:35 AM CDT) Sodium 133(L) 135 - 145 mmol/L Potassium, pl 4.9 3.3 - 4.9 mmol/L [facility] Chloride 96(L) 97 - 110 mmol/L [facility] CO2 27 22 - 32 mmol/L [facility] Anion gap 10 2 - 15 mmol/L [facility] BUN 18 6 - 25 mg/dL [facility] Creatinine 0.89 0.60 - 1.10 mg/dL [facility] Glucose 94 70 - 199 mg/dL [facility] Comment: Interpretive Data Fasting glucose >/= 126 mg/dl is diagnostic for diabetes. Fasting is defined as no caloric intake for at least 8 hours. Fasting glucose between 100 mg/dl to 125 mg/dl is diagnostic of prediabetes. In a patient with classic symptoms of hyperglycemia or hyperglycemic crisis, a random glucose >/= 200 mg/dl is diagnostic for diabetes. In the absence of unequivocal hyperglycemia, results should be confirmed by repeat testing. The classification and Diagnosis of Diabetes Diabetes Care 2021; 46: S19-S40. Current interpretive data was last revised 2022. Calcium 9.7 8.5 - 10.3 mg/dL [facility] Bilirubin, total 0.4 0.1 - 1.2 mg/dL [facility] Protein, pl 6.4(L) 6.5 - 8.5 g/dL [facility] Albumin 4.3 3.5 - 5.0 g/dL [facility] Alk phos 92 40 - 130 Units/L [facility] ALT 12 7 - 45 Units/L [facility] AST 19 10 - 45 Units/L [facility] Blood 12/21/2024 8:35 AM CDT 12/21/2024 11:16 AM CDT Joy Garner NP LAB BLOOD ORDERABLES Final Re sult [facility] [address] [facility] Department of Laboratories [place], [place] [id number] * XR Spine Lumbar 4 or More Views (12/16/2024 3:19 PM CDT) Anatomical Region Laterality Modality L-spine N/A Computed Radiogr aphy 12/24/2024 1:57 PM CDT Narrative 12/24/2024 2:14 PM CDT EXAM DESCRIPTION: 1. XR SPINE LUMBAR 4 OR MORE VIEWS REASON FOR STUDY: chronic lower back pain H/o chronic LBP x 30 years, nki, pain is across belt line, no leg pain FINDINGS: Five views submitted with comparison 11/16/2024. No acute fracture. Mild rotary levoscoliosis of the upper lumbar spine. Moderate to severe diffuse lumbar degenerative disc disease, greatest along the concave aspect of the curvature. Severe inferior lumbar facet osteoarthritis. Arterial atherosclerosis and a catheter are noted. IMPRESSION: 1. Lumbar rotary levoscoliosis. Moderate to severe diffuse lumbar degenerative disc disease, greatest along the concave aspect of the curvature with severe inferior lumbar facet osteoarthritis. THIS IS AN ELECTRONICALLY VERIFIED FINAL REPORT 12/24/2024 2:14 PM - Electronically signed by Wilson Hein M.D. T: Report ID: [id number] Reading Location: [place] [address] Procedure Note Wilson Hein MD - 12/24/2024 EXAM DESCRIPTION: 1. XR SPINE LUMBAR 4 OR MORE VIEWS REASON FOR STUDY: chronic lower back pain H/o chronic LBP x 30 years, nki, pain is across belt line, no leg pain FINDINGS: Five views submitted with comparison 11/16/2024. No acute fracture. Mild rotary levoscoliosis of the upper lumbar spine. Moderate to severe diffuse lumbar degenerative disc disease, greatestalong the concave aspect of the curvature. Severe inferior lumbar facet osteoarthritis. Arterial atherosclerosis and a catheter are noted. IMPRESSION: 1. Lumbar rotary levoscoliosis. Moderate to severe diffuse lumbar degenerative disc disease, greatest along the concave aspect of thecurvature with severe inferior lumbar facet osteoarthritis. THIS IS AN ELECTRONICALLY VERIFIED FINAL REPORT 12/24/2024 2:14 PM - Electronically signed by Wilson Hein M.D. T: Report ID: [id number] Reading Location: [place] [address] Joy Garner NP IMG XR PROCEDURES Final Resul t * Dexa TBS Axial Skeleton Bone Density 1 or more sites (11/04/2024 1:21 PM CDT) Anatomical Region Laterality Modality Wrist, Body N/A Radiographic [place] ging Narrative 11/04/2024 1:45 PM CDT Patient Name: Venkatesh Zaldivar Date of : 1945 Date of scan: 11/04/2024 Bone mineral density was performed on a [employer]Activ Densitometer. Based on machine cross-calibration and precision studies the least significant changes of this densitometer is 0.024 g/cm2 at the spine, 0.020 g/cm2 at the total proximal femur, and 0.014g/cm2 at the forearm. HISTORY: This is a 78 y.o. postmenopausal female with a history of osteoporosis, rheumatoid arthritis, and thyroid disease. She reports that she has never smoked. She has never used smokeless tobacco. Currently on treatment with calcium, vitamin D, and thyroid hormone, previously treated with hormone replacement therapy, and current complaint of back pain and neck pain. INDICATIONS: Menopause status and history of osteoporosis. FINDINGS: BONE MINERAL DENSITY OF THE LUMBAR SPINE Bone Mineral Density (BMD) of the lumbar spine was measured from L1-L4 and the average density was calculated to be 1.185 gm/cm2. This corresponds to a T-score (standard deviations from the mean of young adults) of 1.3. There is no previous study available for comparison. BONE MINERAL DENSITY OF THE PROXIMAL FEMUR Bone Mineral Density (BMD) of the left hip total was found to be 0.743 gm/cm2. This corresponds to a T-score standard deviations from the mean of young adults of -1.6. Femoral neck is 0.590 gm/cm2 with a T-score (standard deviations from the mean of young adults) of -2.3. There is no previous study available for comparison. BONE MINERAL DENSITY OF THE FOREARM Bone Mineral density (BMD) of the left proximal 1/3 of the radius measures 0.556 gm/cm2. This corresponds to a T-score (standard deviations from the mean of young adults) of -2.3. There is no previous study available for comparison. A forearm bone density study was performed in addition to the routine study due to department forearm protocol. SUMMARY: Bone mineral density shows evidence of low bone mass at the proximal femur and forearm and moderately increased fracture risk (Osteopenia). The lumbar spine Trabecular Bone Score is 1.344 which suggests normal bone microarchitecture, compared to the general population. Final decisions regarding diagnostic or therapeutic recommendations should include BMD, TBS, additional clinical risk factors as well the clinical context of the patient. Please see attached TBS results for further details. ADDITIONAL COMMENTS: Postmenopausal Women and Men Over 50: Diagnostic criteria: Osteoporosis: BMD at or below -2.5 T-score; Osteopenia (low bone mass): BMD between -1.0 and -2.5 T-score. If the patient has a history of a fragility fracture, a fracture that occurred with trauma equivalent to a fall from a standing position or less, then the diagnosis is osteoporosis regardless of bone density. The history and data sections of the bone mineral density scan were prepared by Evelyn Keller(Mallorie) CBDT who is accredited by the International Society of Clinical Densitometry. The overall patient assessment and scan interpretation were performed by Abdulkadir Donnelly M.D. who is certified by the International Society of Clinical Densitometry. [id number] Abdulkadir Donnelly MD IMG DXA PROCEDURES Final Resul t * Screening Mammogram Bilateral W Hank (09/25/2024 10:13 AM CDT) Anatomical Region Laterality Modality Breast Bilateral Mammography Impressions 09/26/2024 8:09 PM CDT Bilateral No evidence of malignancy in either breast. OVERALL BI-RADS FINAL ASSESSMENT: 2 - Benign RECOMMENDATION: Recommend bilateral annual screening mammography. Narrative 09/26/2024 8:09 PM CDT EXAMINATION: Screening Mammogram Bilateral W Hank: 09/25/2024 COMPARISON: Relevant prior studies available at the time of interpretation were reviewed. TECHNIQUE: Mammography was performed with 2D and digital breast tomosynthesis (DBT) images. CAD was utilized. BREAST PARENCHYMAL COMPOSITION: There are scattered areas of fibroglandular density. FINDINGS: Bilateral There is no suspicious mass, calcification, or architectural distortion in either breast.There are vascular calcifications in both breasts. us Self Screening Mammogram IMG MAMMO PROCEDURES Fi nal Result * COLONOSCOPY (08/26/2022 7:06 AM CDT) Anatomical Region Laterality Modality Other Narrative Procedure Note Katlin Perdue MD - 08/26/2022 7:06 AM CDT [facility] Patient Name: Venkatesh Zaldivra Procedure Date: 08/26/2022 7:06 AM Date of : 1945 Admit Type: Outpatient Age: 76 Gender: Female Attending MD: Katlin Perdue M.D. Room: [facility] ENDOSCOPY ROOM 1 Note Status: Finalized Patient Profile: This is a 76 year old female. Her mother and grandfather both had colon cancer. Procedure: Colonoscopy Indications: Screening in patient at increased risk: Familyhistory of 1st-degree relative with colorectal cancer, Last colonoscopy: May 2017 Referring MD: Pascual Connor M.D. Providers: Katlin Perdue M.D. Impression: - The entire examined colon is normal. - Internal and external hemorrhoids. - No specimens collected. Recommendation: - Repeat colonoscopy in 5 years for screeningpurposes. - Continue present medications. Medicines: Monitored Anesthesia Care Complications: No immediate complications. Estimated Blood Loss: Estimated blood loss: none. Procedure: Pre-Anesthesia Assessment: - Prior to the procedure, a History and Physicalwas performed, and patient medications and allergieswere reviewed. The patient's tolerance of previous anesthesia was also reviewed. The risks andbenefits of the procedure and the sedation options and risks were discussed with the patient. All questions were answered, and informed consent was obtained. Prior Anticoagulants: The patient has taken noanticoagulant or antiplatelet agents. ASA Grade Assessment: II -A patient with mild systemic disease. After reviewing the risks and benefits, the patient was deemed in satisfactory condition to undergo the procedure. The benefits, risks and alternatives of theprocedure and sedation were discussed and informed consentwas obtained. All questions were answered. Please referto the signed informed consent document in the medical record. The bowel preparation used was Miralax and bisacodyl tablets via split dose instruction. The scope was passed under direct vision. The Pediatric Colonoscope PCF-H190L [id number] was introducedthrough the anus and advanced to the the cecum, identifiedby appendiceal orifice and ileocecal valve. Thequality of the bowel preparation was good. Bowel prep was administered using a split dose. Findings: Medium size external hemorrhoids were found on perianal exam. The cecum appeared normal. The colon (entire examined portion) appeared normal. No polyps and no mass lesions noted. Internal hemorrhoids were found during retroflexion. The hemorrhoids were medium-sized. Electronically signed by Katlin Perdue M.D. Katlin Perdue M.D. 08/26/2022 8:49:06 AM Number of Addenda: 0 Note Initiated On: 08/26/2022 7:06 AM Procedure Code(s): --- Professional --- G0105, Colorectal cancer screening; colonoscopy on individual at high risk Diagnosis Code(s): --- Professional --- Z80.0, Family history of malignant neoplasm of digestive organs K64.8, Other hemorrhoids CPT copyright 2020 [employer]. All rights reserved. The codes documented in this report are preliminary and upon regional sales coordinator reviewmay be revised to meet current compliance requirements. Recognized by the [employer] for promoting quality in endoscopy Katlin Perdue MD ENDOSCOPY PROCEDURES Final Result * Hepatitis C antibody (03/21/2017 11:10 AM TREE THINNER) Hep C Ab NON-REACTI VE NON-REACTI VE [facility] [place] SIGNAL TO CUT-OFF 0.01 <1.00 [facility] [place] Blood specimen (specimen) 03/21/2017 11:10 AM TREE THINNER 03/21/2017 9:21 PM TREE THINNER Narrative Resulting Agency Comment Performing Organization Information: Site ID: [id number] Name: [facility] Address: [address] [address] Director: Monico Baca D.O., MPH Zan Shea MD LAB MICROBIOLOGY - GENERAL ORDERABLES Final Result [facility] from Last 3 Months or Most Recently Relevant to Health Maintenance Insurance MEDICARE [facility] Address: [facility] [address] [place] [address] [facility] Advance Directives For more information, please contact: [phone] Documents on File Type Date Recorded Patient Solution Design And Analysis Manager Expl anation ADVANCE DIRECTIVE 02/15/2025 1:16 AM POWER OF NURSE'S AIDES TEACHER-MEDICAL Power of Director Dance 08/15/2021 7:44 AM ADVANCE DIRECTIVE 05/07/2017 11:18 PM * Full Code (Latest Code Status on File) Date Activated Date Inactivated Comments 01/17/2025 4:05 PM 02/10/2025 10:05 PM * Full Code Date Activated Date Inactivated Comments 12/31/2024 11:21 PM 01/17/2025 4:05 PM * Full Code Date Activated Date Inactivated Comments 12/25/2024 10:43 AM 12/31/2024 11:03 PM * Full Code Date Activated Date Inactivated Comments 08/26/2022 7:14 AM 08/26/2022 1:30 PM * Full Code Date Activated Date Inactivated Comments 08/26/2022 7:14 AM 08/26/2022 7:14 AM Care Teams Outreach Worker Relationship Specialty Start Date End Date Pascual Connor MD [address] [place] [address] PCP - General Family Medicine 10/04/19 Jenifer Quezada, PT Physical Therapist Physical Therapy 08/02/21
--- NOTE | 2025-03-16 23:35 | PC.NURSE ---
Allison DOMINGUEZ from [facility] called and updated. Will continue to monitor.
[2025-03-16 23:36] LABS: Thyroid Stimulating Hormone 18.800 uIU/mL (0.465-4.680)
[2025-03-16] MEDS: POTASSIUM CHLORIDE 20 MEQ PACKET (FOR LIQUID) 40 MEQ PO (23:39)
[2025-03-16] MEDS: KCL 20 MEQ/SW 100 ML 100 ML 50 MEQ IVPB (23:40)
[2025-03-16 23:52] LABS: Thyroid Stimulating Hormone Reflex 19.000 uIU/mL (0.465-4.68)
[2025-03-17] VITALS (61 sets, daily range): BP systolic 111–151; BP diastolic 51–120; PULSE 78–89; RESP 9–28; TEMP 36.5–37.2; O2SAT 53–100; BMI 27.4
[2025-03-17] MEDS: IPRATROPIUM 0.5 MG/ALBUTEROL SULFATE 2.5 MG (BASE) AMPUL.NEB 3 ML INHALATION (00:13)
[2025-03-17 00:26] LABS: Free T4 Free Thyroxine Reflex 1.81 ng/dL (0.78-2.19)
[2025-03-17 00:37] LABS: Influenza A QL RT-PCR Negative (Negative); Influenza B QL RT-PCR Negative (Negative); RSV RNA, RT-PCR Negative (Negative); SARS-CoV-2 RNA PCR Negative (Negative)
[2025-03-17 01:13] LABS: Uric Acid 3.5 mg/dL (2.5-7.5)
[2025-03-17 01:15] LABS: Urea Random Urine 521 MG/DL
[2025-03-17 01:47] LABS: Total Triiodothyronine (T3) 0.46 NG/ML (0.82-1.58)
[2025-03-17 01:52] LABS: Sodium 117 mmol/L (137-145)
[2025-03-17] MEDS: SODIUM CHLORIDE 3% 150 ML 450 ML IV CONT (02:32)
[2025-03-17] MEDS: CEFEPIME 2 GM in SODIUM CHLORIDE 0.9% IV 50 ML 100 ML IVPB ×2 (02:54→16:33)
[2025-03-17] MEDS: VANCOMYCIN 1,750 MG/NS 500 ML 1,750 MG/500 ML BAG 250 MG IVPB (02:54)
[2025-03-17] MEDS: LEVOTHYROXINE SODIUM 75 MCG TABLET PO (02:57)
[2025-03-17 03:10] LABS: MRSA (PCR) NOT DETECTED (NOT DETECTE)
[2025-03-17 04:49] LABS: Sodium 122 mmol/L (137-145)
--- NOTE | 2025-03-17 07:22 | PC.NURSE ---
assumed care of pt, pt is alert and updated on POC, pt placed on fall alarm pad
--- NOTE | 2025-03-17 07:30 | PC.NURSE ---
Per Lauren RN at time of this RN assuming care, [facility] called requesting information on pt and states she is currently still on the waiting list. Per Lauren DOMINGUEZ, spoke to Allison DOMINGUEZ at [facility] and gave nurse to nurse report regarding pt status and POC.
--- NOTE | 2025-03-17 09:20 | PC.NURSE ---
This RN called daughter Ora Vera at [phone] and gave update on pt and discussed POC.
--- NOTE | 2025-03-17 13:09 | ADMGEN ---
This patient, Carly Zaldivar, was admitted to Virtual Bed IMU-1. Patient/family oriented to hospital policies and general routines including ID bracelet, bed and alarms, visiting hours, pain management, procedures, bathroom and other care routines, personal items, smoking policy, room service/diet, and visiting hours. Information on how to activate the Rapid Response Team has been discussed. Patient/Family are encouraged to report perceived risks to care and to ask questions if they do not understand what they are told or what they should do. Patient currently boarding in ER.
--- NOTE | 2025-03-17 15:00 | WPCEDHO ---
ED Hand Off Checklist All vitals saved: IV Site documented: All med administrations documented: Triage Note Triage Note Patient brought in by Fabio Arriaza 03/16/25 21:59 EMS from [facility] with increasing confusion that comes and goes. EMS reports that she was A/O x 4 in rig but forgot what they were talking about upon arrival into room 3 then went back to answering questions appropriately Patient has PICC line that she receives Ertapenem/ Daptomycin in daily. Patient denies any complaints of pain or shortness of breath. BGL 158 Allergies guaifenesin Allergy (Verified 03/17/25 13:11) Rash Family History (Last Reviewed 03/17/25 @ 13:12 by Cyndi Carson RN) Mother Cancer Hypertension Heart disease Depression Cerebrovascular accident Administered/Completed Medications Discontinued Medications Albuterol/Ipratropium (Ipratropium 0.5 Mg/Albuterol Sulfate 2.5 Mg (Base) Ampul.Neb 3 Ml) 3 ml INHALATION ONCE STA Stop: 03/17/25 00:04 Last Admin: 03/17/25 00:13 Dose: 3 ml Documented By: CHRISTIAN Sodium Chloride (Normal Saline Iv) 1,000 mls @ 75 mls/hr IV CONT .[id number] STA Stop: 03/17/25 11:29 Last Infusion: 03/17/25 01:24 Dose: Infused Documented By: Admin: 03/16/25 23:11 Dose: 150 mls/hr Documented By: ROOSEVELT Potassium Chloride (Kcl 20 Meq/Sw 100 Ml) 100 mls @ 50 mls/hr IVPB ONCE STA Stop: 03/17/25 01:25 Last Infusion: 03/17/25 01:24 Dose: Infused Documented By: Admin: 03/16/25 23:40 Dose: 50 mls/hr Documented By: ROOSEVELT Co-signed By: DOMINGO Cefepime HCl 2 gm/ Sodium (Chloride) 50 mls @ 100 mls/hr IVPB ONCE STA Stop: 03/17/25 01:57 Last Infusion: 03/17/25 03:35 Dose: Infused Documented By: Admin: 03/17/25 02:54 Dose: 100 mls/hr Documented By: ROOSEVELT Vancomycin HCl (Vancomycin 1,750 Mg/Ns 500 Ml) 1,750 mg in 500 mls @ 250 mls/hr IVPB ONCE ONE Stop: 03/17/25 04:59 Last Infusion: 03/17/25 04:37 Dose: Infused Documented By: Admin: 03/17/25 02:54 Dose: 250 mls/hr Documented By: ROOSEVELT Sodium Chloride (Sodium Chloride 3%) 150 mls @ 450 mls/hr IV CONT .Q20M STA Stop: 03/17/25 02:11 Last Infusion: 03/17/25 02:55 Dose: Infused Documented By: Admin: 03/17/25 02:32 Dose: 450 mls/hr Documented By: ROOSEVELT Co-signed By: KARINA Levothyroxine Sodium (Levothyroxine Sodium 75 Mcg Tablet) 75 mcg PO ONCE STA Stop: 03/17/25 02:17 Last Admin: 03/17/25 02:57 Dose: 75 mcg Documented By: ROOSEVELT Potassium Chloride (Potassium Chloride 20 Meq Packet (For Liquid)) 40 meq PO ONCE STA Stop: 03/16/25 23:27 Last Admin: 03/16/25 23:39 Dose: 40 meq Documented By: ROOSEVELT Notes 03/17/25 13:09 General Admission Note by Cyndi Carson This patient, Carly Zaldivar, was admitted to [facility]. Patient/family oriented to hospital policies and general routines including ID bracelet, bed and alarms, visiting hours, pain management, procedures, bathroom and other care routines, personal items, smoking policy, room service/diet, and visiting hours. Information on how to activate the Rapid Response Team has been discussed. Patient/Family are encouraged to report perceived risks to care and to ask questions if they do not understand what they are told or what they should do. Patient currently boarding in ER. Initialized on 03/17/25 13:09 - END OF NOTE 03/17/25 09:20 Nurse Note by Doris Awan This RN called daughter Ora Vera at [phone] and gave update on pt and discussed POC. Initialized on 03/17/25 09:20 - END OF NOTE 03/17/25 07:30 Nurse Note by Doris Awan. Keo Aguilar RN at time of this RN assuming care, [facility] called requesting information on pt and states she is currently still on the waiting list. Keo Aguilar RN, spoke to Allison DOMINGUEZ at [facility] and gave nurse to nurse report regarding pt status and POC. Initialized on 03/17/25 07:30 - END OF NOTE 03/17/25 07:22 Nurse Note by Doris Awan assumed care of pt, pt is alert and updated on POC, pt placed on fall alarm pad Initialized on 03/17/25 07:22 - END OF NOTE 03/16/25 23:35 Nurse Note by Lauren Deshpande RN from [facility] called and updated. Will continue to monitor. Initialized on 03/16/25 23:35 - END OF NOTE 03/16/25 22:37 Nurse Note by Maryjane Ruiz While doing urine straight cath patient was incont small amount dark caceres/brown stool-pericare done. Noted bruised area to left aleisha/lower buttock -patient reports that she fell earlier today. Initialized on 03/16/25 22:37 - END OF NOTE Interventions/Assessments Cardiac Monitoring Start: 03/16/25 21:59 Freq: Status: Active Protocol: Document 03/16/25 22:17 TLB (Rec: 03/16/25 22:17 TLB [id number]) Heating And Blending Supervisor Assessment Heating And Blending Supervisor Yes Applied Pulse Rate (60-100) 75 General Assessment Start: 03/16/25 21:59 Freq: Status: Active Protocol: Document 03/16/25 22:42 TLB (Rec: 03/16/25 22:43 TLB [id number]) GA Integumentary Assessment Integumentary Yes Assessment WNL Left Lower Buttock(s) Integumentary Bruises Symptoms Temperature Warm Moisture Dry Skin Turgor Normal Additional Skin Patient reports that she fell earlier today Comments IV / Saline Lock, Insert Start: 03/16/25 21:59 Freq: Status: Active Protocol: Document 03/17/25 02:34 AMH (Rec: 03/17/25 02:35 AMH [id number]) IV Assessment PICC, Double Lumen Right Brachial IV Catheter Access Initiated Before Arrival IV Site Assessment WNL IV Care and WNL Maintenance PA: Cardiovascular Assessment Start: 03/16/25 21:59 Freq: Status: Active Protocol: Document 03/16/25 22:17 TLB (Rec: 03/16/25 22:19 TLB [id number]) Cardiovascular Assessment Cardiovascular None Symptoms Skin Description Normal Color Jugular Vein None Distention PA: Neurological Assessment Start: 03/16/25 21:59 Freq: Status: Active Protocol: Document 03/16/25 22:17 TLB (Rec: 03/16/25 22:19 TLB [id number]) Neurological Assessment Level of Alert,Awake Consciousness Orientation Oriented to Person,Oriented to Place,Disoriented to Time Behavior Appropriate,Cooperative Patient Able to Comprehend Comprehension Ability to Maintain Unable to Assess Balance Facial Symmetry Symmetrical Speech Pattern Clear Ability to Swallow Normal Tongue Position Midline Finger to Nose Test Normal Performance [place] Coma Scale Eyes Open Verbal Oriented and Alert Motor Follows Commands [place] Coma Total 15 Score PA: Respiratory Assessment Start: 03/16/25 21:59 Freq: Status: Active Protocol: Document 03/16/25 22:17 TLB (Rec: 03/16/25 22:19 TLB [id number]) Respiratory Assessment Symptoms None Effort Normal Pattern Regular Depth Normal Chest Expansion Symmetrical Adult Capillary Normal/Less than 2 Seconds Refill Bilateral Throughout Phase Inspiratory & Expiratory Lung Sounds Clear Cough Description None Oxygen Delivery Oxygen Delivery Room Air Pulse Oximetry (90- 97 100) Last Vital Signs Temperature 97.7 F 03/17/25 10:56 Pulse Rate 81 03/17/25 14:39 Respiratory Rate 18 03/17/25 14:39 Pulse Oximetry 97 03/17/25 14:39 Blood Pressure 151/57 H 03/17/25 14:39 Blood Pressure Mean 88 03/17/25 14:39 Blood Pressure Position Sitting 03/17/25 14:39 Oxygen Delivery Nasal Cannula 03/17/25 07:26 Oxygen Flow Rate 2 03/17/25 07:26 Weight 68.1 kg 03/17/25 13:12 Last Result - Abnormals Only WBC 11.7 K/mm3 (4.5-10.0) H 03/16/25 22:43 RBC 2.63 M/mm3 (4.2-5.4) L 03/16/25 22:43 Hgb 8.4 g/dL (12.0-15.0) L 03/16/25 22:43 Hct 24.2 % (37.0-47.0) L 03/16/25 22:43 RDW 15.8 % (11.5-14.5) H 03/16/25 22:43 Immature Gran % (Auto) 0.8 % (0-0.5) H 03/16/25 22:43 Neut % (Auto) 80.2 % (45.5-73.1) H 03/16/25 22:43 Lymph % (Auto) 10.6 % (18.3-44.2) L 03/16/25 22:43 Baso % (Auto) 0.1 % (0.2-1.2) L 03/16/25 22:43 [place] # (Auto) 1.0 K/mm3 (0.1-0.6) H 03/16/25 22:43 Abs Immat Gran (auto) 0.09 K/mm3 (0.00-0.031) H 03/16/25 22:43 Absolute Neuts (auto) 9.4 K/mm3 (1.3-6.7) H 03/16/25 22:43 PT 16.7 Seconds (11.1-14.7) H 03/16/25 22:43 APTT 37.3 Seconds (22.3-36.8) H 03/16/25 22:43 VBG pH 7.437 (7.300-7.400) H* 03/16/25 22:43 VBG pO2 29.5 mmHg (35.0-45.0) L 03/16/25 22:43 VBG HCO3 31.3 mEq/l (24.0-30.0) H 03/16/25 22:43 Sodium 122 mmol/L (137-145) L 03/17/25 04:31 Potassium 2.7 mmol/L (3.4-5.0) L* 03/16/25 22:43 Chloride 84 mmol/L (98-107) L 03/16/25 22:43 Carbon Dioxide 32 mmol/L (22-30) H 03/16/25 22:43 Creatinine 1.03 mg/dL (0.7-1.0) H 03/16/25 22:43 Estimated GFR 52 (59-) L 03/16/25 22:43 Glucose 111 mg/dL (65-110) H 03/16/25 22:43 NT-Pro-B Natriuret Pep 939 pg/mL (19.9-100) H 03/16/25 22:43 TSH 18.800 uIU/mL (0.465-4.680) H 03/16/25 22:43 TSH (Reflex) 19.000 uIU/mL (0.465-4.68) H 03/16/25 22:43 Total T3 0.46 NG/ML (0.82-1.58) L 03/16/25 22:43 Urine Protein 1+ mg/dL (Negative) H 03/16/25 22:44 Urine Ketones Trace mg/dL (Negative) H 03/16/25 22:44 Urine RBC 3-5 /hpf (0-2) H 03/16/25 22:44 Salicylates < 1.0 mg/dL (2-20) L 03/16/25 22:43 Acetaminophen < 10 ug/mL (10-30) L 03/16/25 22:43 Most Recent Suicide Severity Rating Suicide Severity Rating NO RISK INDICATED 03/17/25 13:04
--- NOTE | 2025-03-17 15:01 | WPCEDHO ---
ED Hand Off Checklist All vitals saved:yes IV Site documented:yes All med administrations documented:yes Triage Note Triage Note Patient brought in by Fabio Arriaza 03/16/25 21:59 EMS from [facility] with increasing confusion that comes and goes. EMS reports that she was A/O x 4 in rig but forgot what they were talking about upon arrival into room 3 then went back to answering questions appropriately Patient has PICC line that she receives Ertapenem/ Daptomycin in daily. Patient denies any complaints of pain or shortness of breath. BGL 158 Allergies guaifenesin Allergy (Verified 03/17/25 13:11) Rash Family History (Last Reviewed 03/17/25 @ 13:12 by Cyndi Carson RN) Mother Cancer Hypertension Heart disease Depression Cerebrovascular accident Administered/Completed Medications Discontinued Medications Albuterol/Ipratropium (Ipratropium 0.5 Mg/Albuterol Sulfate 2.5 Mg (Base) Ampul.Neb 3 Ml) 3 ml INHALATION ONCE STA Stop: 03/17/25 00:04 Last Admin: 03/17/25 00:13 Dose: 3 ml Documented By: CHRISTIAN Sodium Chloride (Normal Saline Iv) 1,000 mls @ 75 mls/hr IV CONT .[id number] STA Stop: 03/17/25 11:29 Last Infusion: 03/17/25 01:24 Dose: Infused Documented By: Admin: 03/16/25 23:11 Dose: 150 mls/hr Documented By: ROOSEVELT Potassium Chloride (Kcl 20 Meq/Sw 100 Ml) 100 mls @ 50 mls/hr IVPB ONCE STA Stop: 03/17/25 01:25 Last Infusion: 03/17/25 01:24 Dose: Infused Documented By: Admin: 03/16/25 23:40 Dose: 50 mls/hr Documented By: ROOSEVELT Co-signed By: DOMINGO Cefepime HCl 2 gm/ Sodium (Chloride) 50 mls @ 100 mls/hr IVPB ONCE STA Stop: 03/17/25 01:57 Last Infusion: 03/17/25 03:35 Dose: Infused Documented By: Admin: 03/17/25 02:54 Dose: 100 mls/hr Documented By: ROOSEVELT Vancomycin HCl (Vancomycin 1,750 Mg/Ns 500 Ml) 1,750 mg in 500 mls @ 250 mls/hr IVPB ONCE ONE Stop: 03/17/25 04:59 Last Infusion: 03/17/25 04:37 Dose: Infused Documented By: Admin: 03/17/25 02:54 Dose: 250 mls/hr Documented By: ROOSEVELT Sodium Chloride (Sodium Chloride 3%) 150 mls @ 450 mls/hr IV CONT .Q20M STA Stop: 03/17/25 02:11 Last Infusion: 03/17/25 02:55 Dose: Infused Documented By: Admin: 03/17/25 02:32 Dose: 450 mls/hr Documented By: ROOSEVELT Co-signed By: KARINA Levothyroxine Sodium (Levothyroxine Sodium 75 Mcg Tablet) 75 mcg PO ONCE STA Stop: 03/17/25 02:17 Last Admin: 03/17/25 02:57 Dose: 75 mcg Documented By: ROOSEVELT Potassium Chloride (Potassium Chloride 20 Meq Packet (For Liquid)) 40 meq PO ONCE STA Stop: 03/16/25 23:27 Last Admin: 03/16/25 23:39 Dose: 40 meq Documented By: ROOSEVELT Notes 03/17/25 15:00 ED Hand Off by Doris Awan ED Hand Off Checklist All vitals saved: IV Site documented: All med administrations documented: Triage Note Triage Note Patient brought in by Fabio Arriaza 03/16/25 21:59 EMS from [facility] with increasing confusion that comes and goes. EMS reports that she was A/O x 4 in rig but forgot what they were talking about upon arrival into room 3 then went back to answering questions appropriately Patient has PICC line that she receives Ertapenem/ Daptomycin in daily. Patient denies any complaints of pain or shortness of breath. BGL 158 Allergies guaifenesin Allergy (Verified 03/17/25 13:11) Rash Family History (Last Reviewed 03/17/25 @ 13:12 by Cyndi Carson RN) Mother Cancer Hypertension Heart disease Depression Cerebrovascular accident Administered/Completed Medications Discontinued Medications Albuterol/Ipratropium (Ipratropium 0.5 Mg/Albuterol Sulfate 2.5 Mg (Base) Ampul.Neb 3 Ml) 3 ml INHALATION ONCE STA Stop: 03/17/25 00:04 Last Admin: 03/17/25 00:13 Dose: 3 ml Documented By: CHRISTIAN Sodium Chloride (Normal Saline Iv) 1,000 mls @ 75 mls/hr IV CONT .[id number] STA Stop: 03/17/25 11:29 Last Infusion: 03/17/25 01:24 Dose: Infused Documented By: Admin: 03/16/25 23:11 Dose: 150 mls/hr Documented By: AMH Potassium Chloride (Kcl 20 Meq/Sw 100 Ml) 100 mls @ 50 mls/hr IVPB ONCE STA Stop: 03/17/25 01:25 Last Infusion: 03/17/25 01:24 Dose: Infused Documented By: Admin: 03/16/25 23:40 Dose: 50 mls/hr Documented By: [facility] Co-signed By: DOMINGO Cefepime HCl 2 gm/ Sodium (Chloride) 50 mls @ 100 mls/hr IVPB ONCE STA Stop: 03/17/25 01:57 Last Infusion: 03/17/25 03:35 Dose: Infused Documented By: Admin: 03/17/25 02:54 Dose: 100 mls/hr Documented By: AM[facility] Vancomycin HCl (Vancomycin 1,750 Mg/Ns 500 Ml) 1,750 mg in 500 mls @ 250 mls/hr IVPB ONCE ONE Stop: 03/17/25 04:59 Last Infusion: 03/17/25 04:37 Dose: Infused Documented By: Admin: 03/17/25 02:54 Dose: 250 mls/hr Documented By: [facility] Sodium Chloride (Sodium Chloride 3%) 150 mls @ 450 mls/hr IV CONT .Q20M STA Stop: 03/17/25 02:11 Last Infusion: 03/17/25 02:55 Dose: Infused Documented By: Admin: 03/17/25 02:32 Dose: 450 mls/hr Documented By: AM[facility] Co-signed By: KARINA Levothyroxine Sodium (Levothyroxine Sodium 75 Mcg Tablet) 75 mcg PO ONCE STA Stop: 03/17/25 02:17 Last Admin: 03/17/25 02:57 Dose: 75 mcg Documented By: AM[facility] Potassium Chloride (Potassium Chloride 20 Meq Packet (For Liquid)) 40 meq PO ONCE STA Stop: 03/16/25 23:27 Last Admin: 03/16/25 23:39 Dose: 40 meq Documented By: [facility] Notes 03/17/25 13:09 General Admission Note by Cyndi Carson This patient, Carly Zaldivar, was admitted to Virtual Bed IMU-1. Patient/family oriented to hospital policies and general routines including ID bracelet, bed and alarms, visiting hours, pain management, procedures, bathroom and other care routines, personal items, smoking policy, room service/diet, and visiting hours. Information on how to activate the Rapid Response Team has been discussed. Patient/Family are encouraged to report perceived risks to care and to ask questions if they do not understand what they are told or what they should do. Patient currently boarding in ER. Initialized on 03/17/25 13:09 - END OF NOTE 03/17/25 09:20 Nurse Note by Doris Awan This RN called daughter Ora Vera at [phone] and gave update on pt and discussed POC. Initialized on 03/17/25 09:20 - END OF NOTE 03/17/25 07:30 Nurse Note by Doris Awan Per Lauren RN at time of this RN assuming care, [facility] called requesting information on pt and states she is currently still on the waiting list. Per Lauren RN, spoke to Allison RN at [facility] and gave nurse to nurse report regarding pt status and POC. Initialized on 03/17/25 07:30 - END OF NOTE 03/17/25 07:22 Nurse Note by Doris Awan assumed care of pt, pt is alert and updated on POC, pt placed on fall alarm pad Initialized on 03/17/25 07:22 - END OF NOTE 03/16/25 23:35 Nurse Note by Lauren Deshpande RN from [facility] called and updated. Will continue to monitor. Initialized on 03/16/25 23:35 - END OF NOTE 03/16/25 22:37 Nurse Note by Maryjane Ruiz While doing urine straight cath patient was incont small amount dark caceres/brown stool-pericare done. Noted bruised area to left aleisha/lower buttock -patient reports that she fell earlier today. Initialized on 03/16/25 22:37 - END OF NOTE Interventions/Assessments Cardiac Monitoring Start: 03/16/25 21:59 Freq: Status: Active Protocol: Document 03/16/25 22:17 TLB (Rec: 03/16/25 22:17 TLB [id number]) Medical Imaging Technician Assessment Medical Imaging Technician Yes Applied Pulse Rate (60-100) 75 General Assessment Start: 03/16/25 21:59 Freq: Status: Active Protocol: Document 03/16/25 22:42 TLB (Rec: 03/16/25 22:43 TLB [id number]) GA Integumentary Assessment Integumentary Yes Assessment WNL Left Lower Buttock(s) Integumentary Bruises Symptoms Temperature Warm Moisture Dry Skin Turgor Normal Additional Skin Patient reports that she fell earlier today Comments IV / Saline Lock, Insert Start: 03/16/25 21:59 Freq: Status: Active Protocol: Document 03/17/25 02:34 AMH (Rec: 03/17/25 02:35 AMH [id number]) IV Assessment PICC, Double Lumen Right Brachial IV Catheter Access Initiated Before Arrival IV Site Assessment WNL IV Care and WNL Maintenance PA: Cardiovascular Assessment Start: 03/16/25 21:59 Freq: Status: Active Protocol: Document 03/16/25 22:17 TLB (Rec: 03/16/25 22:19 TLB [id number]) Cardiovascular Assessment Cardiovascular None Symptoms Skin Description Normal Color Jugular Vein None Distention PA: Neurological Assessment Start: 03/16/25 21:59 Freq: Status: Active Protocol: Document 03/16/25 22:17 TLB (Rec: 03/16/25 22:19 TLB [id number]) Neurological Assessment Level of Alert,Awake Consciousness Orientation Oriented to Person,Oriented to Place,Disoriented to Time Behavior Appropriate,Cooperative Patient Able to Comprehend Comprehension Ability to Maintain Unable to Assess Balance Facial Symmetry Symmetrical Speech Pattern Clear Ability to Swallow Normal Tongue Position Midline Finger to Nose Test Normal Performance Cameron Coma Scale Eyes Open Verbal Oriented and Alert Motor Follows Commands Beatris Coma Total 15 Score PA: Respiratory Assessment Start: 03/16/25 21:59 Freq: Status: Active Protocol: Document 03/16/25 22:17 TLB (Rec: 03/16/25 22:19 TLB [id number]) Respiratory Assessment Symptoms None Effort Normal Pattern Regular Depth Normal Chest Expansion Symmetrical Adult Capillary Normal/Less than 2 Seconds Refill Bilateral Throughout Phase Inspiratory & Expiratory Lung Sounds Clear Cough Description None Oxygen Delivery Oxygen Delivery Room Air Pulse Oximetry (90- 97 100) Last Vital Signs Temperature 97.7 F 03/17/25 10:56 Pulse Rate 81 03/17/25 14:39 Respiratory Rate 18 03/17/25 14:39 Pulse Oximetry 97 03/17/25 14:39 Blood Pressure 151/57 H 03/17/25 14:39 Blood Pressure Mean 88 03/17/25 14:39 Blood Pressure Position Sitting 03/17/25 14:39 Oxygen Delivery Nasal Cannula 03/17/25 07:26 Oxygen Flow Rate 2 03/17/25 07:26 Weight 68.1 kg 03/17/25 13:12 Last Result - Abnormals Only WBC 11.7 K/mm3 (4.5-10.0) H 03/16/25 22:43 RBC 2.63 M/mm3 (4.2-5.4) L 03/16/25 22:43 Hgb 8.4 g/dL (12.0-15.0) L 03/16/25 22:43 Hct 24.2 % (37.0-47.0) L 03/16/25 22:43 RDW 15.8 % (11.5-14.5) H 03/16/25 22:43 Immature Gran % (Auto) 0.8 % (0-0.5) H 03/16/25 22:43 Neut % (Auto) 80.2 % (45.5-73.1) H 03/16/25 22:43 Lymph % (Auto) 10.6 % (18.3-44.2) L 03/16/25 22:43 Baso % (Auto) 0.1 % (0.2-1.2) L 03/16/25 22:43 [place] # (Auto) 1.0 K/mm3 (0.1-0.6) H 03/16/25 22:43 Abs Immat Gran (auto) 0.09 K/mm3 (0.00-0.031) H 03/16/25 22:43 Absolute Neuts (auto) 9.4 K/mm3 (1.3-6.7) H 03/16/25 22:43 PT 16.7 Seconds (11.1-14.7) H 03/16/25 22:43 APTT 37.3 Seconds (22.3-36.8) H 03/16/25 22:43 VBG pH 7.437 (7.300-7.400) H* 03/16/25 22:43 VBG pO2 29.5 mmHg (35.0-45.0) L 03/16/25 22:43 VBG HCO3 31.3 mEq/l (24.0-30.0) H 03/16/25 22:43 Sodium 122 mmol/L (137-145) L 03/17/25 04:31 Potassium 2.7 mmol/L (3.4-5.0) L* 03/16/25 22:43 Chloride 84 mmol/L (98-107) L 03/16/25 22:43 Carbon Dioxide 32 mmol/L (22-30) H 03/16/25 22:43 Creatinine 1.03 mg/dL (0.7-1.0) H 03/16/25 22:43 Estimated GFR 52 (59-) L 03/16/25 22:43 Glucose 111 mg/dL (65-110) H 03/16/25 22:43 NT-Pro-B Natriuret Pep 939 pg/mL (19.9-100) H 03/16/25 22:43 TSH 18.800 uIU/mL (0.465-4.680) H 03/16/25 22:43 TSH (Reflex) 19.000 uIU/mL (0.465-4.68) H 03/16/25 22:43 Total T3 0.46 NG/ML (0.82-1.58) L 03/16/25 22:43 Urine Protein 1+ mg/dL (Negative) H 03/16/25 22:44 Urine Ketones Trace mg/dL (Negative) H 03/16/25 22:44 Urine RBC 3-5 /hpf (0-2) H 03/16/25 22:44 Salicylates < 1.0 mg/dL (2-20) L 03/16/25 22:43 Acetaminophen < 10 ug/mL (10-30) L 03/16/25 22:43 Most Recent Suicide Severity Rating Suicide Severity Rating NO RISK INDICATED 03/17/25 13:04 Initialized on 03/17/25 15:00 - END OF NOTE 03/17/25 13:09 General Admission Note by Cyndi Carson This patient, Carly Zaldivar, was admitted to Virtual Bed IMU-1. Patient/family oriented to hospital policies and general routines including ID bracelet, bed and alarms, visiting hours, pain management, procedures, bathroom and other care routines, personal items, smoking policy, room service/diet, and visiting hours. Information on how to activate the Rapid Response Team has been discussed. Patient/Family are encouraged to report perceived risks to care and to ask questions if they do not understand what they are told or what they should do. Patient currently boarding in ER. Initialized on 03/17/25 13:09 - END OF NOTE 03/17/25 09:20 Nurse Note by Doris Awan This RN called daughter Ora Vera at [phone] and gave update on pt and discussed POC. Initialized on 03/17/25 09:20 - END OF NOTE 03/17/25 07:30 Nurse Note by Doris Awan Per Lauren RN at time of this RN assuming care, [facility] called requesting information on pt and states she is currently still on the waiting list. Per Lauren RN, spoke to Allison RN at [facility] and gave nurse to nurse report regarding pt status and POC. Initialized on 03/17/25 07:30 - END OF NOTE 03/17/25 07:22 Nurse Note by Doris Awan assumed care of pt, pt is alert and updated on POC, pt placed on fall alarm pad Initialized on 03/17/25 07:22 - END OF NOTE 03/16/25 23:35 Nurse Note by Lauren Deshpande RN from [facility] called and updated. Will continue to monitor. Initialized on 03/16/25 23:35 - END OF NOTE 03/16/25 22:37 Nurse Note by Maryjane Ruiz While doing urine straight cath patient was incont small amount dark caceres/brown stool-pericare done. Noted bruised area to left aleisha/lower buttock -patient reports that she fell earlier today. Initialized on 03/16/25 22:37 - END OF NOTE Interventions/Assessments Cardiac Monitoring Start: 03/16/25 21:59 Freq: Status: Active Protocol: Document 03/16/25 22:17 TLB (Rec: 03/16/25 22:17 TLB [id number]) Medical Imaging Technician Assessment Medical Imaging Technician Yes Applied Pulse Rate (60-100) 75 General Assessment Start: 03/16/25 21:59 Freq: Status: Active Protocol: Document 03/16/25 22:42 TLB (Rec: 03/16/25 22:43 TLB [id number]) GA Integumentary Assessment Integumentary Yes Assessment WNL Left Lower Buttock(s) Integumentary Bruises Symptoms Temperature Warm Moisture Dry Skin Turgor Normal Additional Skin Patient reports that she fell earlier today Comments IV / Saline Lock, Insert Start: 03/16/25 21:59 Freq: Status: Active Protocol: Document 03/17/25 02:34 AMH (Rec: 03/17/25 02:35 AMH [id number]) IV Assessment PICC, Double Lumen Right Brachial IV Catheter Access Initiated Before Arrival IV Site Assessment WNL IV Care and WNL Maintenance PA: Cardiovascular Assessment Start: 03/16/25 21:59 Freq: Status: Active Protocol: Document 03/16/25 22:17 TLB (Rec: 03/16/25 22:19 TLB [id number]) Cardiovascular Assessment Cardiovascular None Symptoms Skin Description Normal Color Jugular Vein None Distention PA: Neurological Assessment Start: 03/16/25 21:59 Freq: Status: Active Protocol: Document 03/16/25 22:17 TLB (Rec: 03/16/25 22:19 TLB [id number]) Neurological Assessment Level of Alert,Awake Consciousness Orientation Oriented to Person,Oriented to Place,Disoriented to Time Behavior Appropriate,Cooperative Patient Able to Comprehend Comprehension Ability to Maintain Unable to Assess Balance Facial Symmetry Symmetrical Speech Pattern Clear Ability to Swallow Normal Tongue Position Midline Finger to Nose Test Normal Performance Beatris Coma Scale Eyes Open Verbal Oriented and Alert Motor Follows Commands Beatris Coma Total 15 Score PA: Respiratory Assessment Start: 03/16/25 21:59 Freq: Status: Active Protocol: Document 03/16/25 22:17 TLB (Rec: 03/16/25 22:19 TLB [id number]) Respiratory Assessment Symptoms None Effort Normal Pattern Regular Depth Normal Chest Expansion Symmetrical Adult Capillary Normal/Less than 2 Seconds Refill Bilateral Throughout Phase Inspiratory & Expiratory Lung Sounds Clear Cough Description None Oxygen Delivery Oxygen Delivery Room Air Pulse Oximetry (90- 97 100) Last Vital Signs Temperature 97.7 F 03/17/25 10:56 Pulse Rate 81 03/17/25 14:39 Respiratory Rate 18 03/17/25 14:39 Pulse Oximetry 97 03/17/25 14:39 Blood Pressure 151/57 H 12/04/25 14:39 Blood Pressure Mean 88 03/17/25 14:39 Blood Pressure Position Sitting 03/17/25 14:39 Oxygen Delivery Nasal Cannula 03/17/25 07:26 Oxygen Flow Rate 2 03/17/25 07:26 Weight 68.1 kg 03/17/25 13:12 Last Result - Abnormals Only WBC 11.7 K/mm3 (4.5-10.0) H 03/16/25 22:43 RBC 2.63 M/mm3 (4.2-5.4) L 03/16/25 22:43 Hgb 8.4 g/dL (12.0-15.0) L 03/16/25 22:43 Hct 24.2 % (37.0-47.0) L 03/16/25 22:43 RDW 15.8 % (11.5-14.5) H 03/16/25 22:43 Immature Gran % (Auto) 0.8 % (0-0.5) H 03/16/25 22:43 Neut % (Auto) 80.2 % (45.5-73.1) H 03/16/25 22:43 Lymph % (Auto) 10.6 % (18.3-44.2) L 03/16/25 22:43 Baso % (Auto) 0.1 % (0.2-1.2) L 03/16/25 22:43 [place] # (Auto) 1.0 K/mm3 (0.1-0.6) H 03/16/25 22:43 Abs Immat Gran (auto) 0.09 K/mm3 (0.00-0.031) H 03/16/25 22:43 Absolute Neuts (auto) 9.4 K/mm3 (1.3-6.7) H 03/16/25 22:43 PT 16.7 Seconds (11.1-14.7) H 03/16/25 22:43 APTT 37.3 Seconds (22.3-36.8) H 03/16/25 22:43 VBG pH 7.437 (7.300-7.400) H* 03/16/25 22:43 VBG pO2 29.5 mmHg (35.0-45.0) L 03/16/25 22:43 VBG HCO3 31.3 mEq/l (24.0-30.0) H 03/16/25 22:43 Sodium 122 mmol/L (137-145) L 03/17/25 04:31 Potassium 2.7 mmol/L (3.4-5.0) L* 03/16/25 22:43 Chloride 84 mmol/L (98-107) L 03/16/25 22:43 Carbon Dioxide 32 mmol/L (22-30) H 03/16/25 22:43 Creatinine 1.03 mg/dL (0.7-1.0) H 03/16/25 22:43 Estimated GFR 52 (59-) L 03/16/25 22:43 Glucose 111 mg/dL (65-110) H 03/16/25 22:43 NT-Pro-B Natriuret Pep 939 pg/mL (19.9-100) H 03/16/25 22:43 TSH 18.800 uIU/mL (0.465-4.680) H 03/16/25 22:43 TSH (Reflex) 19.000 uIU/mL (0.465-4.68) H 03/16/25 22:43 Total T3 0.46 NG/ML (0.82-1.58) L 03/16/25 22:43 Urine Protein 1+ mg/dL (Negative) H 03/16/25 22:44 Urine Ketones Trace mg/dL (Negative) H 03/16/25 22:44 Urine RBC 3-5 /hpf (0-2) H 03/16/25 22:44 Salicylates < 1.0 mg/dL (2-20) L 03/16/25 22:43 Acetaminophen < 10 ug/mL (10-30) L 03/16/25 22:43 Most Recent Suicide Severity Rating Suicide Severity Rating NO RISK INDICATED 03/17/25 13:04
--- NOTE | 2025-03-17 15:22 | ADMGEN ---
This patient, Carly Zaldivar, was admitted to IMU Room 207-01. Patient/family oriented to hospital policies and general routines including ID bracelet, bed and alarms, visiting hours, pain management, procedures, bathroom and other care routines, personal items, smoking policy, room service/diet, and visiting hours. Information on how to activate the Rapid Response Team has been discussed. Patient/Family are encouraged to report perceived risks to care and to ask questions if they do not understand what they are told or what they should do.
--- NOTE | 2025-03-17 15:57 | WPDNEURCNPN ---
Assessment and Plan Assessment and plan (1) Altered mental status: Code(s): R41.82 - Altered mental status, unspecified Status: Acute (2) NPH (normal pressure hydrocephalus): Code(s): G91.2 - (Idiopathic) normal pressure hydrocephalus Status: Acute (3) CVA (cerebral vascular accident): Code(s): I63.9 - Cerebral infarction, unspecified Status: Acute Assessment and Plan: It was noted that the patient has had MRI of the brain done on 01/08/2025 at [facility] which showed multiple infarcts including left cerebellar hemisphere. EKG at this time shows sinus rhythm with first-degree heart block. (4) History of cardioembolic cerebrovascular accident (CVA): Code(s): Z86.73 - Personal history of transient ischemic attack (TIA), and cerebral infarction without residual deficits Status: Acute (5) Hypertension: Code(s): I10 - Essential (primary) hypertension Status: Acute (6) History of mitral valve repair: Code(s): Z98.890 - Other specified postprocedural states Status: Acute (7) History of endocarditis: Code(s): Z86.79 - Personal history of other diseases of the circulatory system Status: Acute (8) History of coronary artery bypass graft: Code(s): Z95.1 - Presence of aortocoronary bypass graft Status: Acute (9) A-fib: Code(s): I48.91 - Unspecified atrial fibrillation Status: Acute Plan The patient does appear to have some difficulty with cognition and memory but overall she seems to be fairly responsive and I do not see any evidence for shunt obstruction or significant sepsis nevertheless this should be followed up closely since the metabolic etiologies including hyponatremia can well be the cause for the change is mental status unless of course he has any underlying dementia which may manifest periodically due to metabolic factors. In view of the shunt she cannot have MRI here and a CT scan of brain did not show anything additional in terms of abnormality. Serum sodium was low at 122 but BUN and creatinine were within normal range except 1 of the creatinine reading was at 1.03. Urine toxicology screen was unremarkable. Patient denies any history of drinking alcohol. Clinically I do not see much to suggest a stroke but silent stroke scan of still occur as was found on the previous occasion there is any further suspicion an MRI of the brain would be the next step in the meanwhile looking for any metabolic problems that can also cause status change should be considered. She does have low serum sodium which could be a cause for the changes mental status. Have taken liberty to order EEG and also some blood work including for B12 folic acid level vitamin-D level. Consult date: 03/17/25 HPI: Carly Zaldivar is a 79 year old female with history of extensive medical problems was seen for an neurological evaluation. I have been asked to see her because of the changes in mental status. According to the patient she was coming to see a family member having some minor surgery. Her serum sodium was found to be low at 117. She has a history of hydrocephalus for which she had a shunt placement. Based upon the her note it appears she was discharged from rehab on 02/25/2025. An MRI of the brain performed at [facility] has shown multiple infarcts. The patient denies any symptoms but she does recognize that she may be slightly mixed up. No history of recent febrile illness or head trauma. There is no previous history of seizures. Previous history does include history of anxiety and depression, hypothyroidism and rheumatoid arthritis and obstructive sleep apnea syndrome and chronic lower back pain. CT scan of lumbosacral spine has shown multilevel lumbar spondylosis. Received steroids and opioid for pain control according to the discharge summary summary from the rehab. Patient does not recall being in rehab recently. She feels that she is being kept in the hospital necessarily. The records reflect the MRI of the brain was performed on 01/08/2025 at [facility] which showed multiple infarcts . A CT scan of brain and a [employer] shunt series were done which shows a shunt in the right frontoparietal region. There is no evidence for discontinuity or kinking of the proximal catheter. The valve reservoir appear intact and continuous from skull to peritoneum. CT scan of the thoracic and lumbosacral spine shows severe thoracic and lumbar spondylosis. Also evidence for scoliosis and anterior fusion procedure of cervical spine. Patient does describe having had a surgeon cervical spine. 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 She subsequently had surgery for the valve as well as coronary artery bypass grafting. Patient denies any headache or nausea vomiting. No visual symptoms. Weakness in upper lower limbs. A CT angiogram of the chest abdomen and pelvis of performed which shows no evidence of pulmonary embolus however there is mild pulmonary edema. Mild airspace opacity in the right upper lobe and right middle lobe consistent with atelectasis versus pneumonia. 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 Lumbar spondylosis Rheumatoid arthritis NPH (normal pressure hydrocephalus) Thyroid disorder Osteoporosis Arthritis Hypertension Surgical History Surgical History S/P [employer] shunt History of arthroscopy of left knee 2014 - meniscectomy Hip bursitis, left debridement with abductor repair 2011 Family History Family History Mother Cancer Hypertension Heart disease Depression Cerebrovascular accident Social History Social History Smoking status: Never smoker Second hand tobacco smoke exposure: No Alcohol intake: never Drinks per week: 0 Substance use: never Substance use type: does not use Lack of Transportation: No Lack of Food: Never True Current Housing: I Have Housing Concerned About Future Housing: No Difficulty Paying Gas/Electric Bills: No Difficulty Paying for Meds: No Currently Unemployed: No Education: High School Diploma/GED Difficulty w/ Childcare or Family Care: No Living arrangements: alone Occupation/Education: retired Gender identity (if verbalized by the patient): Female Spiritual care concerns: No Meds Home Medications and Allergies Home Medications ?Medication ?Instructions ?Recorded ?Confirmed ?Type aspirin 81 mg chewable tablet 81 mg PO DAILY@0800 #30 tabs 02/22/22 03/17/25 Rx (Children's Aspirin) ascorbic acid (vitamin C) 500 mg 1,000 mg PO DAILY 12/06/24 03/17/25 History capsule acetaminophen 500 mg tablet 500 mg PO Q6H PRN pain 02/10/25 03/17/25 History diclofenac sodium 1 % topical gel 2 g topical TID PRN pain 02/10/25 03/17/25 History ferrous sulfate 325 mg (65 mg 325 mg PO DAILY 02/10/25 03/17/25 History iron) tablet (iron) lidocaine 4 % topical patch 3 patch topical DAILY 02/10/25 03/17/25 History (Lidocaine Pain Relief) zinc gluconate 50 mg tablet 50 mg PO DAILY 02/10/25 03/17/25 History cholecalciferol (vitamin D3) 25 2,000 unit PO DAILY 02/11/25 03/17/25 History mcg (1,000 unit) tablet (Vitamin D3) amiodarone 200 mg tablet 200 mg PO DAILY #30 tabs 02/24/25 03/17/25 Rx amlodipine 5 mg tablet 5 mg PO DAILY #30 tabs 02/24/25 03/17/25 Rx apixaban 5 mg tablet 5 mg PO Q12H #60 tabs 02/24/25 03/17/25 Rx duloxetine 30 mg capsule,delayed 30 mg PO DAILY #30 caps 02/24/25 03/17/25 Rx release furosemide 40 mg tablet (Lasix) 40 mg PO DAILY #30 tabs 02/24/25 03/17/25 Rx gabapentin 100 mg capsule 100 mg PO BID #60 caps 02/24/25 03/17/25 Rx hydroxychloroquine 200 mg tablet 400 mg (2 x 200 mg) PO 3XW #12 tabs 02/24/25 03/17/25 Rx hydroxychloroquine 200 mg tablet 200 mg PO 4XW #16 tabs 02/24/25 03/17/25 Rx (Plaquenil) levothyroxine 75 mcg tablet 75 mcg PO DAILY #30 tabs 02/24/25 03/17/25 Rx (Levoxyl) meloxicam 15 mg tablet 15 mg PO DAILY #30 tabs 02/24/25 03/17/25 Rx methocarbamol 500 mg tablet 500 mg PO BID #60 tabs 02/24/25 03/17/25 Rx metoprolol tartrate 25 mg tablet 12.5 mg (1/2 x 25 mg) PO BID #60 02/24/25 03/17/25 Rx tabs pantoprazole 40 mg tablet,delayed 40 mg PO QAM #30 tabs 02/24/25 03/17/25 Rx release sodium chloride 0.65 % nasal spray 1 spray intranasal Q2H PRN Dry 02/24/25 03/17/25 Rx aerosol (Saline Mist) Nasal Passages #0 mL sodium chloride 1,000 mg soluble 1,000 mg PO QAM #10 tabs 02/24/25 03/17/25 Rx tablet trazodone 50 mg tablet 25 mg (1/2 x 50 mg) PO QHS #30 tabs 02/24/25 03/17/25 Rx ertapenem 1 gram intravenous 1 g IV DAILY 03/17/25 03/17/25 History solution heparin lock flush (porcine) 10 50 unit IV DAILY 03/17/25 03/17/25 History unit/mL intravenous syringe miconazole nitrate 2 % topical 1 applic topical BID 03/17/25 03/17/25 History cream ondansetron 4 mg disintegrating 4 mg PO Q8H PRN nausea and vomiting 03/17/25 03/17/25 History tablet rosuvastatin 40 mg tablet (Crestor) 40 mg PO HS 03/17/25 03/17/25 History sodium chloride 0.9 % (flush) 10 ml IV DAILY 03/17/25 03/17/25 History (Normal Saline Flush 0.9 % injection syringe) Allergies Allergy/AdvReac Type Severity Reaction Status Date / Time guaifenesin Allergy Rash Verified 03/17/25 13:11 Vital Signs Vital Signs - 24 hr 03/16/25 21:59 03/16/25 22:17 03/16/25 22:17 Temperature 98.0 F Pulse Rate 76 75 Respiratory Rate 21 H Blood Pressure 140/62 Pulse Oximetry 97 97 Oxygen Delivery Room Air Room Air Oxygen Flow Rate 03/16/25 22:21 03/16/25 22:30 03/16/25 22:31 Temperature Pulse Rate 75 75 82 Respiratory Rate 21 H 15 22 H Blood Pressure 129/57 L Pulse Oximetry 98 95 97 Oxygen Delivery Oxygen Flow Rate 03/16/25 23:05 03/16/25 23:15 03/16/25 23:30 Temperature Pulse Rate 78 78 78 Respiratory Rate 23 H 18 17 Blood Pressure Pulse Oximetry 94 Oxygen Delivery Oxygen Flow Rate 03/16/25 23:45 03/16/25 23:51 03/17/25 00:00 Temperature Pulse Rate 77 78 81 Respiratory Rate 17 15 17 Blood Pressure 136/59 L Pulse Oximetry 96 Oxygen Delivery Oxygen Flow Rate 03/17/25 00:01 03/17/25 00:14 03/17/25 00:15 Temperature Pulse Rate 79 78 79 Respiratory Rate 24 H 12 26 H Blood Pressure 116/69 Pulse Oximetry Oxygen Delivery Oxygen Flow Rate 03/17/25 00:20 03/17/25 00:30 03/17/25 00:45 Temperature Pulse Rate 79 81 84 Respiratory Rate 17 20 15 Blood Pressure Pulse Oximetry Oxygen Delivery Oxygen Flow Rate 03/17/25 00:46 03/17/25 01:21 03/17/25 01:29 Temperature Pulse Rate 84 78 82 Respiratory Rate 22 H 16 15 Blood Pressure 120/53 L 124/57 L Pulse Oximetry 92 94 Oxygen Delivery Oxygen Flow Rate 03/17/25 01:30 03/17/25 01:31 03/17/25 01:45 Temperature Pulse Rate 83 83 80 Respiratory Rate 20 16 19 Blood Pressure 121/96 H Pulse Oximetry 72 L 53 L 99 Oxygen Delivery Oxygen Flow Rate 03/17/25 02:00 03/17/25 02:15 03/17/25 02:17 Temperature Pulse Rate 82 82 82 Respiratory Rate 22 H 20 22 H Blood Pressure 145/120 H Pulse Oximetry 100 Oxygen Delivery Oxygen Flow Rate 03/17/25 03:01 03/17/25 04:15 03/17/25 04:30 Temperature 98.5 F Pulse Rate 80 80 81 Respiratory Rate 21 H 19 19 Blood Pressure 124/82 Pulse Oximetry 98 100 Oxygen Delivery Oxygen Flow Rate 03/17/25 04:45 03/17/25 05:00 03/17/25 05:15 Temperature Pulse Rate 79 81 80 Respiratory Rate 22 H 21 H 19 Blood Pressure Pulse Oximetry Oxygen Delivery Oxygen Flow Rate 03/17/25 05:16 03/17/25 05:30 03/17/25 05:45 Temperature Pulse Rate 79 79 80 Respiratory Rate 21 H 20 19 Blood Pressure 147/67 H Pulse Oximetry Oxygen Delivery Oxygen Flow Rate 03/17/25 06:01 03/17/25 07:26 03/17/25 07:27 Temperature 98.7 F Pulse Rate 80 81 Respiratory Rate 19 28 H Blood Pressure 148/67 H 144/65 H Pulse Oximetry 100 100 98 Oxygen Delivery Nasal Cannula Oxygen Flow Rate 2 03/17/25 07:34 03/17/25 07:37 03/17/25 07:49 Temperature 97.7 F Pulse Rate 81 80 Respiratory Rate 21 H 17 Blood Pressure Pulse Oximetry 100 Oxygen Delivery Oxygen Flow Rate 03/17/25 08:01 03/17/25 08:19 03/17/25 08:31 Temperature Pulse Rate 81 81 81 Respiratory Rate 18 19 17 Blood Pressure Pulse Oximetry Oxygen Delivery Oxygen Flow Rate 03/17/25 08:45 03/17/25 09:05 03/17/25 09:20 Temperature Pulse Rate 82 81 82 Respiratory Rate 19 20 12 Blood Pressure 123/69 Pulse Oximetry 98 Oxygen Delivery Oxygen Flow Rate 03/17/25 09:41 03/17/25 09:50 03/17/25 10:00 Temperature Pulse Rate 81 82 82 Respiratory Rate 19 17 19 Blood Pressure Pulse Oximetry Oxygen Delivery Oxygen Flow Rate 03/17/25 10:15 03/17/25 10:16 03/17/25 10:30 Temperature Pulse Rate 82 82 82 Respiratory Rate 21 H 20 21 H Blood Pressure 117/88 Pulse Oximetry 100 Oxygen Delivery Oxygen Flow Rate 03/17/25 10:47 03/17/25 10:56 03/17/25 11:00 Temperature 97.7 F Pulse Rate 82 83 84 Respiratory Rate 17 15 21 H Blood Pressure 126/65 Pulse Oximetry 100 97 Oxygen Delivery Oxygen Flow Rate 03/17/25 11:15 03/17/25 11:16 03/17/25 12:16 Temperature Pulse Rate 83 82 Respiratory Rate 15 18 Blood Pressure 129/56 L Pulse Oximetry 100 Oxygen Delivery Oxygen Flow Rate 03/17/25 12:17 03/17/25 12:30 03/17/25 12:31 Temperature Pulse Rate 84 Respiratory Rate 14 9 L 9 L Blood Pressure 139/75 140/58 L Pulse Oximetry 95 Oxygen Delivery Oxygen Flow Rate 03/17/25 13:14 03/17/25 14:39 03/17/25 15:08 Temperature Pulse Rate 81 81 89 Respiratory Rate 19 18 20 Blood Pressure 140/58 L 151/57 H 111/82 Pulse Oximetry 95 97 97 Oxygen Delivery Oxygen Flow Rate Exam Narrative: No aphasia or dysarthria. She had difficulty telling me the month and the year. She could do simple calculations and follow 1 step command easily however some difficulty with 2 step commands. He seems cooperative. Examination head and neck shows no evidence of external trauma and no nuchal rigidity. Cranial nerves on individual testing are intact. No facial asymmetry. Tongue was midline. Visual sloan by confrontation are normal. Facial sensation normal. Motor system shows normal power and tone in both upper and lower limbs deep tendon reflexes did not show any significant asymmetry. Sensory examination was unremarkable. No involuntary movements are seen at this time. Const: General: cooperative and comfortable HENMT: Head: atraumatic Mouth: Yes oropharynx normal Other: A shunt tube was palpated on the right side of the skull going behind the ear. The reserve void above seems to be functioning fairly well and feels up after pressing on it. Eyes: Alignment and Position: alignment normal and position normal EOM: EOMs intact bilaterally Neck: Neck: normal visual inspection and supple Resp: Effort & Inspection: normal respiratory effort Cardio: Heart sounds: S1 normal heart sound present and S2 normal heart sound present Skin: General skin exam: normal color Neuro: Cranial nerves: Yes CN's II-XII intact bilaterally, Yes facial symmetry and Yes Midline tongue present Speech: normal speech Sensory Exam: normal sensation Coordination: [id number] test normal and Normal rapid alternating movements of the distal upper extremity present (Neuro) Results Labs 03/16/25 22:43 03/17/25 04:31 Labs: Short CBC 03/16/25 Range/Units 22:43 WBC 11.7 H (4.5-10.0) K/mm3 Hgb 8.4 L (12.0-15.0) g/dL Hct 24.2 L (37.0-47.0) % Plt Count 260 (150-375) k/mm3 BMP 03/16/25 03/17/25 03/17/25 22:43 01:31 04:31 Sodium 120 L 117 L* 122 L Potassium 2.7 L* Chloride 84 L Carbon Dioxide 32 H BUN 9 Creatinine 1.03 H Glucose 111 H Calcium 8.7 Cardiac Enzymes 03/16/25 Range/Units 22:43 Total Creatine Kinase 76 (30-135) U/L Troponin I 0.022 (0.000-0.034) ng/mL Liver Function 03/16/25 Range/Units 22:43 Total Bilirubin 0.6 (0.2-1.3) mg/dL AST 28 (14-36) U/L ALT 19 (6-35) U/L Alkaline Phosphatase 116 (38-126) U/L Albumin 3.9 (3.5-5.1) g/dL Urine 03/16/25 Range/Units 22:44 Urine Color Yellow (Yellow) Urine Appearance Clear (Clear) Urine pH 5.5 (5.0-9.0) Ur Specific [place] 1.016 (1.001-1.035) Urine Protein 1+ H (Negative) mg/dL Urine Glucose (UA) Negative (Negative) mg/dL
[2025-03-17] MEDS: AZITHROMYCIN IV 500 MG in SODIUM CHLORIDE 0.9% IV 250 ML IVPB (17:06)
[2025-03-17 17:55] LABS: MRSA (PCR) NOT DETECTED (NOT DETECTE)
--- NOTE | 2025-03-17 18:26 | PM.IMHP2 ---
H&P: HPI History of Present Illness Date/Time: 03/17/25 18:26 Chief Complaint: Altered Mental Status Narrative: ER-HPI narrative: Patient is a 79-year-old female presents to the emergency department via EMS for reported increased confusion from nursing facility. Patient is reported typically be alert oriented x4 and was noted to be slightly more confused today. Patient denies any current complaints. Patient does note that she thinks she had a fall earlier today, denies hitting her head or having loss of consciousness. Patient states she is on multiple medications mid taking these as prescribed. Patient denies any chest pain, difficulty breathing, abdominal pain, nausea, vomiting, fever, dysuria, urinary frequency, urinary urgency, melena, hematochezia, focal weakness, numbness, vision changes, difficulty swallowing. Patient knows where she is right now motor name is but does not know how old she is or what year it is. Patient admits to being on blood thinners for atrial fibrillation. Discussed with Dr Rodriguez, neurologist suspect her confusion stemming from her previous stroke, also patient has very low sodium patient was treated with 3% sodium, her sodium is trending up, communicated Dr. Matos will follow up on her sodium levels, clinically patient is stable, will monitor and plan, patient is also accepted by the [facility] waiting for the transfer, will monitor. 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 Lumbar spondylosis Rheumatoid arthritis NPH (normal pressure hydrocephalus) Thyroid disorder Osteoporosis Arthritis Hypertension Surgical History Surgical History S/P [employer] shunt History of arthroscopy of left knee 2014 - meniscectomy Hip bursitis, left debridement with abductor repair 2011 Family History Family History Mother Cancer Hypertension Heart disease Depression Cerebrovascular accident Social History Social History Smoking status: Never smoker Second hand tobacco smoke exposure: No Alcohol intake: never Drinks per week: 0 Substance use: never Substance use type: does not use Lack of Transportation: No Lack of Food: Never True Current Housing: I Have Housing Concerned About Future Housing: No Difficulty Paying Gas/Electric Bills: No Difficulty Paying for Meds: No Currently Unemployed: No Education: High School Diploma/GED Difficulty w/ Childcare or Family Care: No Living arrangements: alone Occupation/Education: retired Gender identity (if verbalized by the patient): Female Spiritual care concerns: No Meds Home Medications and Allergies Home Medications ?Medication ?Instructions ?Recorded ?Confirmed ?Type aspirin 81 mg chewable tablet 81 mg PO DAILY@0800 #30 tabs 02/22/22 03/17/25 Rx (Children's Aspirin) ascorbic acid (vitamin C) 500 mg 1,000 mg PO DAILY 12/06/24 03/17/25 History capsule acetaminophen 500 mg tablet 500 mg PO Q6H PRN pain 02/10/25 03/17/25 History diclofenac sodium 1 % topical gel 2 g topical TID PRN pain 02/10/25 03/17/25 History ferrous sulfate 325 mg (65 mg 325 mg PO DAILY 02/10/25 03/17/25 History iron) tablet (iron) lidocaine 4 % topical patch 3 patch topical DAILY 02/10/25 03/17/25 History (Lidocaine Pain Relief) zinc gluconate 50 mg tablet 50 mg PO DAILY 02/10/25 03/17/25 History cholecalciferol (vitamin D3) 25 2,000 unit PO DAILY 02/11/25 03/17/25 History mcg (1,000 unit) tablet (Vitamin D3) amiodarone 200 mg tablet 200 mg PO DAILY #30 tabs 02/24/25 03/17/25 Rx amlodipine 5 mg tablet 5 mg PO DAILY #30 tabs 02/24/25 03/17/25 Rx apixaban 5 mg tablet 5 mg PO Q12H #60 tabs 02/24/25 03/17/25 Rx duloxetine 30 mg capsule,delayed 30 mg PO DAILY #30 caps 02/24/25 03/17/25 Rx release furosemide 40 mg tablet (Lasix) 40 mg PO DAILY #30 tabs 02/24/25 03/17/25 Rx gabapentin 100 mg capsule 100 mg PO BID #60 caps 02/24/25 03/17/25 Rx hydroxychloroquine 200 mg tablet 400 mg (2 x 200 mg) PO 3XW #12 tabs 02/24/25 03/17/25 Rx hydroxychloroquine 200 mg tablet 200 mg PO 4XW #16 tabs 02/24/25 03/17/25 Rx (Plaquenil) levothyroxine 75 mcg tablet 75 mcg PO DAILY #30 tabs 02/24/25 03/17/25 Rx (Levoxyl) meloxicam 15 mg tablet 15 mg PO DAILY #30 tabs 02/24/25 03/17/25 Rx methocarbamol 500 mg tablet 500 mg PO BID #60 tabs 02/24/25 03/17/25 Rx metoprolol tartrate 25 mg tablet 12.5 mg (1/2 x 25 mg) PO BID #60 02/24/25 03/17/25 Rx tabs pantoprazole 40 mg tablet,delayed 40 mg PO QAM #30 tabs 02/24/25 03/17/25 Rx release sodium chloride 0.65 % nasal spray 1 spray intranasal Q2H PRN Dry 02/24/25 03/17/25 Rx aerosol (Saline Mist) Nasal Passages #0 mL sodium chloride 1,000 mg soluble 1,000 mg PO QAM #10 tabs 02/24/25 03/17/25 Rx tablet trazodone 50 mg tablet 25 mg (1/2 x 50 mg) PO QHS #30 tabs 02/24/25 03/17/25 Rx ertapenem 1 gram intravenous 1 g IV DAILY 03/17/25 03/17/25 History solution heparin lock flush (porcine) 10 50 unit IV DAILY 03/17/25 03/17/25 History unit/mL intravenous syringe miconazole nitrate 2 % topical 1 applic topical BID 03/17/25 03/17/25 History cream ondansetron 4 mg disintegrating 4 mg PO Q8H PRN nausea and vomiting 03/17/25 03/17/25 History tablet rosuvastatin 40 mg tablet (Crestor) 40 mg PO HS 03/17/25 03/17/25 History sodium chloride 0.9 % (flush) 10 ml IV DAILY 03/17/25 03/17/25 History (Normal Saline Flush 0.9 % injection syringe) Allergies Allergy/AdvReac Type Severity Reaction Status Date / Time guaifenesin Allergy Rash Verified 03/17/25 13:11 Vital Signs Vital Signs - 24 hr 03/16/25 21:59 03/16/25 22:17 03/16/25 22:17 Temperature 36.7 C Pulse Rate 76 75 Respiratory Rate 21 H Blood Pressure 140/62 Pulse Oximetry 97 97 Oxygen Delivery Room Air Room Air Oxygen Flow Rate 03/16/25 22:21 03/16/25 22:30 03/16/25 22:31 Temperature Pulse Rate 75 75 82 Respiratory Rate 21 H 15 22 H Blood Pressure 129/57 L Pulse Oximetry 98 95 97 Oxygen Delivery Oxygen Flow Rate 03/16/25 23:05 03/16/25 23:15 03/16/25 23:30 Temperature Pulse Rate 78 78 78 Respiratory Rate 23 H 18 17 Blood Pressure Pulse Oximetry 94 Oxygen Delivery Oxygen Flow Rate 03/16/25 23:45 03/16/25 23:51 03/17/25 00:00 Temperature Pulse Rate 77 78 81 Respiratory Rate 17 15 17 Blood Pressure 136/59 L Pulse Oximetry 96 Oxygen Delivery Oxygen Flow Rate 03/17/25 00:01 03/17/25 00:14 03/17/25 00:15 Temperature Pulse Rate 79 78 79 Respiratory Rate 24 H 12 26 H Blood Pressure 116/69 Pulse Oximetry Oxygen Delivery Oxygen Flow Rate 03/17/25 00:20 03/17/25 00:30 03/17/25 00:45 Temperature Pulse Rate 79 81 84 Respiratory Rate 17 20 15 Blood Pressure Pulse Oximetry Oxygen Delivery Oxygen Flow Rate 03/17/25 00:46 03/17/25 01:21 03/17/25 01:29 Temperature Pulse Rate 84 78 82 Respiratory Rate 22 H 16 15 Blood Pressure 120/53 L 124/57 L Pulse Oximetry 92 94 Oxygen Delivery Oxygen Flow Rate 03/17/25 01:30 03/17/25 01:31 03/17/25 01:45 Temperature Pulse Rate 83 83 80 Respiratory Rate 20 16 19 Blood Pressure 121/96 H Pulse Oximetry 72 L 53 L 99 Oxygen Delivery Oxygen Flow Rate 03/17/25 02:00 03/17/25 02:15 03/17/25 02:17 Temperature Pulse Rate 82 82 82 Respiratory Rate 22 H 20 22 H Blood Pressure 145/120 H Pulse Oximetry 100 Oxygen Delivery Oxygen Flow Rate 03/17/25 03:01 03/17/25 04:15 03/17/25 04:30 Temperature 36.9 C Pulse Rate 80 80 81 Respiratory Rate 21 H 19 19 Blood Pressure 124/82 Pulse Oximetry 98 100 Oxygen Delivery Oxygen Flow Rate 03/17/25 04:45 03/17/25 05:00 03/17/25 05:15 Temperature Pulse Rate 79 81 80 Respiratory Rate 22 H 21 H 19 Blood Pressure Pulse Oximetry Oxygen Delivery Oxygen Flow Rate 03/17/25 05:16 03/17/25 05:30 03/17/25 05:45 Temperature Pulse Rate 79 79 80 Respiratory Rate 21 H 20 19 Blood Pressure 147/67 H Pulse Oximetry Oxygen Delivery Oxygen Flow Rate 03/17/25 06:01 03/17/25 07:26 03/17/25 07:27 Temperature 37.1 C Pulse Rate 80 81 Respiratory Rate 19 28 H Blood Pressure 148/67 H 144/65 H Pulse Oximetry 100 100 98 Oxygen Delivery Nasal Cannula Oxygen Flow Rate 2 03/17/25 07:34 03/17/25 07:37 03/17/25 07:49 Temperature 36.5 C Pulse Rate 81 80 Respiratory Rate 21 H 17 Blood Pressure Pulse Oximetry 100 Oxygen Delivery Oxygen Flow Rate 03/17/25 08:01 03/17/25 08:19 03/17/25 08:31 Temperature Pulse Rate 81 81 81 Respiratory Rate 18 19 17 Blood Pressure Pulse Oximetry Oxygen Delivery Oxygen Flow Rate 03/17/25 08:45 03/17/25 09:05 03/17/25 09:20 Temperature Pulse Rate 82 81 82 Respiratory Rate 19 20 12 Blood Pressure 123/69 Pulse Oximetry 98 Oxygen Delivery Oxygen Flow Rate 03/17/25 09:41 03/17/25 09:50 03/17/25 10:00 Temperature Pulse Rate 81 82 82 Respiratory Rate 19 17 19 Blood Pressure Pulse Oximetry Oxygen Delivery Oxygen Flow Rate 03/17/25 10:15 03/17/25 10:16 03/17/25 10:30 Temperature Pulse Rate 82 82 82 Respiratory Rate 21 H 20 21 H Blood Pressure 117/88 Pulse Oximetry 100 Oxygen Delivery Oxygen Flow Rate 03/17/25 10:47 03/17/25 10:56 03/17/25 11:00 Temperature 36.5 C Pulse Rate 82 83 84 Respiratory Rate 17 15 21 H Blood Pressure 126/65 Pulse Oximetry 100 97 Oxygen Delivery Oxygen Flow Rate 03/17/25 11:15 03/17/25 11:16 03/17/25 12:16 Temperature Pulse Rate 83 82 Respiratory Rate 15 18 Blood Pressure 129/56 L Pulse Oximetry 100 Oxygen Delivery Oxygen Flow Rate 03/17/25 12:17 03/17/25 12:30 03/17/25 12:31 Temperature Pulse Rate 84 Respiratory Rate 14 9 L 9 L Blood Pressure 139/75 140/58 L Pulse Oximetry 95 Oxygen Delivery Oxygen Flow Rate 03/17/25 13:14 03/17/25 14:39 03/17/25 15:08 Temperature Pulse Rate 81 81 89 Respiratory Rate 19 18 20 Blood Pressure 140/58 L 151/57 H 111/82 Pulse Oximetry 95 97 97 Oxygen Delivery Oxygen Flow Rate 03/17/25 16:00 03/17/25 16:00 03/17/25 17:51 Temperature 36.8 C Pulse Rate 86 85 83 Respiratory Rate 20 Blood Pressure 136/66 Pulse Oximetry 100 Oxygen Delivery Oxygen Flow Rate Exam Narrative: Patient is comfortable, NAD HEENT: eyes are clear and none icteric LUNGS:CTA HEART: RR S1S2 ABD: BS+, Soft and nontender Lower extremities: no edema SKIN: nonjaundiced Neuro: grossly intact. Results Labs Labs: Short CBC 03/16/25 Range/Units 22:43 WBC 11.7 H (4.5-10.0) K/mm3 Hgb 8.4 L (12.0-15.0) g/dL Hct 24.2 L (37.0-47.0) % Plt Count 260 (150-375) k/mm3 BMP 03/16/25 03/17/25 03/17/25 22:43 01:31 04:31 Sodium 120 L 117 L* 122 L Potassium 2.7 L* Chloride 84 L Carbon Dioxide 32 H BUN 9 Creatinine 1.03 H Glucose 111 H Calcium 8.7 Cardiac Enzymes 03/16/25 Range/Units 22:43 Total Creatine Kinase 76 (30-135) U/L Troponin I 0.022 (0.000-0.034) ng/mL Liver Function 03/16/25 Range/Units 22:43 Total Bilirubin 0.6 (0.2-1.3) mg/dL AST 28 (14-36) U/L ALT 19 (6-35) U/L Alkaline Phosphatase 116 (38-126) U/L Albumin 3.9 (3.5-5.1) g/dL Urine 03/16/25 Range/Units 22:44 Urine Color Yellow (Yellow) Urine Appearance Clear (Clear) Urine pH 5.5 (5.0-9.0) Ur Specific [place] 1.016 (1.001-1.035) Urine Protein 1+ H (Negative) mg/dL Urine Glucose (UA) Negative (Negative) mg/dL Quality VTE Prophylaxis VTE prophylaxis: mechanical ordered Assessment and Plan Assessment and plan (1) CVA (cerebral vascular accident): Code(s): I63.9 - Cerebral infarction, unspecified Status: Acute (2) History of cardioembolic cerebrovascular accident (CVA): Code(s): Z86.73 - Personal history of transient ischemic attack (TIA), and cerebral infarction without residual deficits Status: Acute (3) NPH (normal pressure hydrocephalus): Code(s): G91.2 - (Idiopathic) normal pressure hydrocephalus Status: Acute (4) Altered mental status: Code(s): R41.82 - Altered mental status, unspecified Status: Acute (5) Hyponatremia: Code(s): E87.1 - Hypo-osmolality and hyponatremia Status: Acute (6) ANDREIA (acute kidney injury): Code(s): N17.9 - Acute kidney failure, unspecified Status: Acute (7) A-fib: Code(s): I48.91 - Unspecified atrial fibrillation Status: Acute Plan Discussed with Dr Rodriguez, neurologist suspect her confusion stemming from her previous stroke, also patient has very low sodium patient was treated with 3% sodium, her sodium is trending up, communicated Dr. Matos will follow up on her sodium levels, clinically patient is stable, will monitor and plan, patient is also accepted by the [facility] waiting for the transfer, will monitor. Hospitalist MIPS Advance Care Plan The patient's Advanced Care plan is not present because:: Patient doesn't want to name surrogate or provider advance care plan Medication Reconciliation The patient is not eligible for med reconciliation; the patient is in a emergent medical situation where delaying treatment would jeopardize the patients health.: Yes
[2025-03-17 18:39] LABS: Albumin Level 3.3 g/dL (3.5-5.1); Anion Gap 3 mmol/L (4-12); Blood Urea Nitrogen 4 mg/dL (7-17); Calcium 8.9 mg/dL (8.4-10.2); Carbon Dioxide 28 mmol/L (22-30); Chloride 96 mmol/L (98-107); Estimated CRCL calculation 57 ml/min; Estimated Glomerular Filt Rate > 60; Glucose 96 mg/dL (65-110); Magnesium 2.1 mg/dL (1.6-2.3); Potassium 3.5 mmol/L (3.4-5.0); Sodium 127 mmol/L (137-145)
[2025-03-17 19:12] LABS: Thyroid Stimulating Hormone 9.240 uIU/mL (0.465-4.680)
[2025-03-17 19:14] LABS: Total Triiodothyronine (T3) 0.48 NG/ML (0.82-1.58)
[2025-03-17 19:47] LABS: Vitamin B12 858.0 pg/mL (239-931)
[2025-03-17] MEDS: DEXTROSE 5% 1,000 ML 1,000 ML 200 ML IV CONT (20:07)
[2025-03-17] MEDS: CENTRAL LINE FLUSH 10 ML IV PUSH (20:08)
[2025-03-17] MEDS: ASPIRIN 81 MG CHEWABLE TABLET PO (22:38)
[2025-03-17] MEDS: ROSUVASTATIN 20 MG TABLET 40 MG PO (22:39)
[2025-03-17 23:30] LABS: Sodium 125 mmol/L (137-145)
[2025-03-18] VITALS (11 sets, daily range): BP systolic 128–140; BP diastolic 50–66; PULSE 80–89; RESP 16–22; TEMP 36.7–36.8; O2SAT 92–95
[2025-03-18] MEDS: CEFEPIME 2 GM in SODIUM CHLORIDE 0.9% IV 50 ML 100 ML IVPB ×2 (03:50→14:24)
[2025-03-18] MEDS: CENTRAL LINE FLUSH 10 ML IV PUSH ×2 (04:06→14:25)
[2025-03-18 05:31] LABS: Hematocrit 22.2 % (37.0-47.0); Hemoglobin 7.2 g/dL (12.0-15.0); Mean Corpuscular HGB Conc 32.4 g/dl (32-36); Mean Corpuscular Hemoglobin 30.6 pg (26-34); Mean Corpuscular Volume 94.5 fl (80-100); Platelet Count Result 225 k/mm3 (150-375); Red Blood Count 2.35 M/mm3 (4.2-5.4); White Blood Count 9.1 K/mm3 (4.5-10.0)
[2025-03-18 05:43] LABS: Alanine Aminotransferase 17 U/L (6-35); Albumin Level 3.3 g/dL (3.5-5.1); Alkaline Phosphatase 92 U/L (38-126); Anion Gap 1 mmol/L (4-12); Aspartate Amino Transferase 23 U/L (14-36); Bilirubin,Total 0.6 mg/dL (0.2-1.3); Blood Urea Nitrogen 5 mg/dL (7-17); Calcium 8.8 mg/dL (8.4-10.2); Carbon Dioxide 30 mmol/L (22-30); Chloride 94 mmol/L (98-107); Estimated CRCL calculation 52 ml/min; Estimated Glomerular Filt Rate > 60; Glucose 107 mg/dL (65-110); Magnesium 2.0 mg/dL (1.6-2.3); Potassium 3.3 mmol/L (3.4-5.0); Sodium 125 mmol/L (137-145); Total Protein 5.9 g/dL (6.3-8.2)
[2025-03-18] MEDS: ASPIRIN 81 MG CHEWABLE TABLET PO (08:48)
--- NOTE | 2025-03-18 10:46 | PM.CNNEP ---
History of Present Illness Reason for Consult Consult date: 03/18/25 Reason for consult: hyponatremia (acute on chronic) Chief Complaint Chief complaint: Encephalopathy PMFSH Past Medical History Medical History Elbow arthritis Arthritis of both glenohumeral joints Lumbar spondylosis Rheumatoid arthritis NPH (normal pressure hydrocephalus) Thyroid disorder Osteoporosis Arthritis Hypertension Surgical History Surgical History S/P AUDITOR shunt History of arthroscopy of left knee 2014 - meniscectomy Hip bursitis, left debridement with abductor repair 2011 Family History Family History Mother Cancer Hypertension Heart disease Depression Cerebrovascular accident Social History Social History Smoking status: Never smoker Second hand tobacco smoke exposure: No Alcohol intake: never Drinks per week: 0 Substance use: never Substance use type: does not use Lack of Transportation: No Lack of Food: Never True Current Housing: I Have Housing Concerned About Future Housing: No Difficulty Paying Gas/Electric Bills: No Difficulty Paying for Meds: No Currently Unemployed: No Education: High School Diploma/GED Difficulty w/ Childcare or Family Care: No Living arrangements: alone Occupation/Education: retired Gender identity (if verbalized by the patient): Female Spiritual care concerns: No Meds Home Medications and Allergies Home Medications ?Medication ?Instructions ?Recorded ?Confirmed ?Type aspirin 81 mg chewable tablet 81 mg PO DAILY@0800 #30 tabs 02/22/22 03/17/25 Rx (Children's Aspirin) ascorbic acid (vitamin C) 500 mg 1,000 mg PO DAILY 12/06/24 03/17/25 History capsule acetaminophen 500 mg tablet 500 mg PO Q6H PRN pain 02/10/25 03/17/25 History diclofenac sodium 1 % topical gel 2 g topical TID PRN pain 02/10/25 03/17/25 History ferrous sulfate 325 mg (65 mg 325 mg PO DAILY 02/10/25 03/17/25 History iron) tablet (iron) lidocaine 4 % topical patch 3 patch topical DAILY 02/10/25 03/17/25 History (Lidocaine Pain Relief) zinc gluconate 50 mg tablet 50 mg PO DAILY 02/10/25 03/17/25 History cholecalciferol (vitamin D3) 25 2,000 unit PO DAILY 02/11/25 03/17/25 History mcg (1,000 unit) tablet (Vitamin D3) amiodarone 200 mg tablet 200 mg PO DAILY #30 tabs 02/24/25 03/17/25 Rx amlodipine 5 mg tablet 5 mg PO DAILY #30 tabs 02/24/25 03/17/25 Rx apixaban 5 mg tablet 5 mg PO Q12H #60 tabs 02/24/25 03/17/25 Rx duloxetine 30 mg capsule,delayed 30 mg PO DAILY #30 caps 02/24/25 03/17/25 Rx release furosemide 40 mg tablet (Lasix) 40 mg PO DAILY #30 tabs 02/24/25 03/17/25 Rx gabapentin 100 mg capsule 100 mg PO BID #60 caps 02/24/25 03/17/25 Rx hydroxychloroquine 200 mg tablet 400 mg (2 x 200 mg) PO 3XW #12 tabs 02/24/25 03/17/25 Rx hydroxychloroquine 200 mg tablet 200 mg PO 4XW #16 tabs 02/24/25 03/17/25 Rx (Plaquenil) levothyroxine 75 mcg tablet 75 mcg PO DAILY #30 tabs 02/24/25 03/17/25 Rx (Levoxyl) meloxicam 15 mg tablet 15 mg PO DAILY #30 tabs 02/24/25 03/17/25 Rx methocarbamol 500 mg tablet 500 mg PO BID #60 tabs 02/24/25 03/17/25 Rx metoprolol tartrate 25 mg tablet 12.5 mg (1/2 x 25 mg) PO BID #60 02/24/25 03/17/25 Rx tabs pantoprazole 40 mg tablet,delayed 40 mg PO QAM #30 tabs 02/24/25 03/17/25 Rx release sodium chloride 0.65 % nasal spray 1 spray intranasal Q2H PRN Dry 02/24/25 03/17/25 Rx aerosol (Saline Mist) Nasal Passages #0 mL sodium chloride 1,000 mg soluble 1,000 mg PO QAM #10 tabs 02/24/25 03/17/25 Rx tablet trazodone 50 mg tablet 25 mg (1/2 x 50 mg) PO QHS #30 tabs 02/24/25 03/17/25 Rx ertapenem 1 gram intravenous 1 g IV DAILY 03/17/25 03/17/25 History solution heparin lock flush (porcine) 10 50 unit IV DAILY 03/17/25 03/17/25 History unit/mL intravenous syringe miconazole nitrate 2 % topical 1 applic topical BID 03/17/25 03/17/25 History cream ondansetron 4 mg disintegrating 4 mg PO Q8H PRN nausea and vomiting 03/17/25 03/17/25 History tablet rosuvastatin 40 mg tablet (Crestor) 40 mg PO HS 03/17/25 03/17/25 History sodium chloride 0.9 % (flush) 10 ml IV DAILY 03/17/25 03/17/25 History (Normal Saline Flush 0.9 % injection syringe) Allergies Allergy/AdvReac Type Severity Reaction Status Date / Time guaifenesin Allergy Rash Verified 03/17/25 13:11 Vital Signs Vital Signs Temp Pulse Resp BP Pulse Ox O2 Del Method O2 Flow Rate 03/18/25 10:00 85 03/18/25 08:00 83 03/18/25 08:00 Room Air 03/18/25 07:49 98.1 F 85 16 140/66 94 03/18/25 06:00 80 03/18/25 04:00 80 03/18/25 04:00 98.1 F 80 18 132/53 L 92 03/18/25 03:20 94 Room Air 03/18/25 00:00 98.3 F 87 18 134/50 L 95 03/18/25 00:00 82 03/18/25 00:00 94 Room Air 03/17/25 23:53 85 16 95 Autopap 03/17/25 21:34 85 03/17/25 20:29 95 Nasal Cannula 2 03/17/25 20:00 85 03/17/25 20:00 95 Nasal Cannula 3 03/17/25 20:00 99 F 84 18 129/51 L 91 03/17/25 17:51 83 03/17/25 16:00 85 03/17/25 16:00 98.3 F 86 20 136/66 100 03/17/25 15:08 89 20 111/82 97 Results Lab Results 03/18/25 05:22 03/18/25 05:22 Lab results: Most recent lab results Calcium 8.8 mg/dL (8.4-10.2) 03/18/25 05:22 Phosphorus 2.6 mg/dL (2.5-4.5) 03/17/25 18:08 Magnesium 2.0 mg/dL (1.6-2.3) 03/18/25 05:22 Urine Creatinine 198.4 mg/dL 03/16/25 22:44
--- NOTE | 2025-03-18 10:47 | PC.NURSE ---
At 0853 on 03/18/25, [facility] called. Vital and Labs updates given. No bed at this time.
--- NOTE | 2025-03-18 12:09 | PC.NURSE ---
Transfer Center called at 1207 on 03/18/25. Patient switched to medical floor bed from ICU and transferring to [facility] where her neurosurgeon is. Accepting Doctor is Dr. Campos. No bed at this time.
--- NOTE | 2025-03-18 12:45 | PC.NURSE ---
at 1245 on 03/18/25, [facility] call to give a bed ([id number]) and phone number to call report [phone].
--- NOTE | 2025-03-18 14:50 | PCNEURO ---
EEG will not be able to be completed until Wednesday 03/21.
[2025-03-19 10:08] LABS: Uric Acid, Urine 67.6 mg/dL (Not Estab.); Uric Acid,Urine 24hr 405.6 mg/24 hr (88.9-568.5)
[2025-03-21 01:07] LABS: Osmolality, Serum 260 mOsmol/kg (280-301)
[2025-03-22 01:07] LABS: Osmolality, Urine 411 mOsmol/kg (.)
--- NOTE | 2025-03-28 08:05 | PM.TDS ---
Transfer Discharge Sum: Prov Provider Date of admission: 03/17/25 10:18 Primary care physician: Andrey Pickard MD Admitting clinician: Tong wolfe Oca, MD Consults: 03/17/25 Consult to Physician Routine Comment: Consulting Provider: Erica Canseco Reason for consultation: Hyponatremia, metabolic alkalosis Has provider been notified: Yes Consult to Physician Routine Comment: Dr has seen pt. Consulting Provider: Vasquez Guy Reason for consultation: Encephalopathy Has provider been notified: Yes DS: Admitting Diagnosis Discharge Date 03/18/25 Admitting Diagnosis Altered Mental Status DS: Discharge Diagnosis Discharge Diagnosis (1) CVA (cerebral vascular accident): Code(s): I63.9 - Cerebral infarction, unspecified Status: Acute (2) History of cardioembolic cerebrovascular accident (CVA): Code(s): Z86.73 - Personal history of transient ischemic attack (TIA), and cerebral infarction without residual deficits Status: Acute (3) NPH (normal pressure hydrocephalus): Code(s): G91.2 - (Idiopathic) normal pressure hydrocephalus Status: Acute (4) Altered mental status: Code(s): R41.82 - Altered mental status, unspecified Status: Acute (5) Hyponatremia: Code(s): E87.1 - Hypo-osmolality and hyponatremia Status: Acute (6) ANDREIA (acute kidney injury): Code(s): N17.9 - Acute kidney failure, unspecified Status: Acute (7) A-fib: Code(s): I48.91 - Unspecified atrial fibrillation Status: Acute Plan Discussed with Dr Rodriguez, neurologist suspect her confusion stemming from her previous stroke, also patient has very low sodium patient was treated with 3% sodium, her sodium is trending up, communicated Dr. Matos will follow up on her sodium levels, clinically patient is stable, will monitor and plan, patient is also accepted by the [facility] waiting for the transfer, will monitor. Transfer Discharge Sum: Med Medications Active and Home Medications: Home Medications aspirin 81 mg chewable tablet (Children's Aspirin) 81 mg PO DAILY@0800 #30 tabs 02/22/22 [Rx Confirmed 03/17/25] ascorbic acid (vitamin C) 500 mg capsule 1,000 mg PO DAILY 12/06/24 [History Confirmed 03/17/25] acetaminophen 500 mg tablet 500 mg PO Q6H PRN pain 02/10/25 [History Confirmed 03/17/25] diclofenac sodium 1 % topical gel 2 g topical TID PRN pain 02/10/25 [History Confirmed 03/17/25] ferrous sulfate 325 mg (65 mg iron) tablet (iron) 325 mg PO DAILY 02/10/25 [History Confirmed 03/17/25] lidocaine 4 % topical patch (Lidocaine Pain Relief) 3 patch topical DAILY 02/10/25 [History Confirmed 03/17/25] zinc gluconate 50 mg tablet 50 mg PO DAILY 02/10/25 [History Confirmed 03/17/25] cholecalciferol (vitamin D3) 25 mcg (1,000 unit) tablet (Vitamin D3) 2,000 unit PO DAILY 02/11/25 [History Confirmed 03/17/25] amiodarone 200 mg tablet 200 mg PO DAILY #30 tabs 02/24/25 [Rx Confirmed 03/17/25] amlodipine 5 mg tablet 5 mg PO DAILY #30 tabs 02/24/25 [Rx Confirmed 03/17/25] apixaban 5 mg tablet 5 mg PO Q12H #60 tabs 02/24/25 [Rx Confirmed 03/17/25] duloxetine 30 mg capsule,delayed release 30 mg PO DAILY #30 caps 02/24/25 [Rx Confirmed 03/17/25] furosemide 40 mg tablet (Lasix) 40 mg PO DAILY #30 tabs 02/24/25 [Rx Confirmed 03/17/25] gabapentin 100 mg capsule 100 mg PO BID #60 caps 02/24/25 [Rx Confirmed 03/17/25] hydroxychloroquine 200 mg tablet 400 mg (2 x 200 mg) PO 3XW #12 tabs 02/24/25 [Rx Confirmed 03/17/25] hydroxychloroquine 200 mg tablet (Plaquenil) 200 mg PO 4XW #16 tabs 02/24/25 [Rx Confirmed 03/17/25] levothyroxine 75 mcg tablet (Levoxyl) 75 mcg PO DAILY #30 tabs 02/24/25 [Rx Confirmed 03/17/25] meloxicam 15 mg tablet 15 mg PO DAILY #30 tabs 02/24/25 [Rx Confirmed 03/17/25] methocarbamol 500 mg tablet 500 mg PO BID #60 tabs 02/24/25 [Rx Confirmed 03/17/25] metoprolol tartrate 25 mg tablet 12.5 mg (1/2 x 25 mg) PO BID #60 tabs 02/24/25 [Rx Confirmed 03/17/25] pantoprazole 40 mg tablet,delayed release 40 mg PO QAM #30 tabs 02/24/25 [Rx Confirmed 03/17/25] sodium chloride 0.65 % nasal spray aerosol (Saline Mist) 1 spray intranasal Q2H PRN Dry Nasal Passages #0 mL 02/24/25 [Rx Confirmed 03/17/25] sodium chloride 1,000 mg soluble tablet 1,000 mg PO QAM #10 tabs 02/24/25 [Rx Confirmed 03/17/25] trazodone 50 mg tablet 25 mg (1/2 x 50 mg) PO QHS #30 tabs 02/24/25 [Rx Confirmed 03/17/25] ertapenem 1 gram intravenous solution 1 g IV DAILY 03/17/25 [History Confirmed 03/17/25] heparin lock flush (porcine) 10 unit/mL intravenous syringe 50 unit IV DAILY 03/17/25 [History Confirmed 03/17/25] miconazole nitrate 2 % topical cream 1 applic topical BID 03/17/25 [History Confirmed 03/17/25] ondansetron 4 mg disintegrating tablet 4 mg PO Q8H PRN nausea and vomiting 03/17/25 [History Confirmed 03/17/25] rosuvastatin 40 mg tablet (Crestor) 40 mg PO HS 03/17/25 [History Confirmed 03/17/25] sodium chloride 0.9 % (flush) (Normal Saline Flush 0.9 % injection syringe) 10 ml IV DAILY 03/17/25 [History Confirmed 03/17/25] Transfer Discharge Sum: Hosp Hospital Course Hospital course: Discussed with Dr Rodriguez, neurologist suspect her confusion stemming from her previous stroke, also patient has very low sodium patient was treated with 3% sodium, her sodium is trending up, communicated Dr. Matos will follow up on her sodium levels, clinically patient is stable, will monitor and plan, patient is also accepted by the [facility] waiting for the transfer, will monitor. Carly Zaldivar is a 79 year old female presented with AMS with history shunt, patient was seen by the neurologist and recommended patient needs an MRI to further evaluate her condition, patient is not able to have MRI at the hospital due shunt, patient is clinically and is accepted at [facility], will transfer patient to the hospital for further evaluation. Patient Condition: Stable Time Spent with Patient Time attestation: Total time spent providing and/or coordinating transfer services: Exam Narrative: Patient is comfortable, NAD HEENT: eyes are clear and none icteric LUNGS:CTA HEART: RR S1S2 ABD: BS+, Soft and nontender Lower extremities: no edema SKIN: nonjaundiced Neuro: grossly intact.
--- OUTSIDE RECORDS SUMMARY | 2025-04-25 18:00 | XMS_ITS | Clinical Summary ---
Author Organization Unknown Care Team Providers Care Personal Investment Adviser Name Role Phone ISMAEL INTERSTATE, DONA Unavailable Unavaila sofía SAPP RN, ERIBERTO Unavailable Unavailabl renetta QUINTANILLA RN, TARAH Unavailable Unavailable ANGELA PT, SONI Unavailable Unavailable JUDIE OT, SARBJIT Unavailable Unavailable [employer] POSTING SPECIALIST, BECKI Unavailable Unavailabl e Payers Payer Name Policy Type Policy Number Effective Date Expira tion Date MEDICARE.[place] [id number] Problems Condition Name Condition Details Condition Category Status Onset Date Resolution Date Last Treatment Date Treating Clinician Comments EXTRADURAL AND SUBDURAL ABSCESS, UNSPECIFIED Active 2024-04 00:00: 00 INFECT/INFLM REACTION DUE TO INT FIX OF SPINE, INIT Active 2024-04 00:00: 00 ACUTE AND SUBACUTE INFECTIVE ENDOCARDITIS Active 2024-04 00:00: 00 STREPTOCOCCU S, GROUP B, CAUSING DISEASES CLASSD ELSWHR Active 2024-04 00:00: 00 OSTEOMYELITI S OF [place], SITE UNSPECIFIED Active 2024-04 00:00: 00 HYP CHR KIDNEY DISEASE W STAGE 5 CHR KIDNEY DISEASE OR ESRD Active 2024-04 00:00: 00 END STAGE RENAL DISEASE Active 2024-04 00:00: 00 ATHSCL HEART DISEASE OF [place] CORONARY ARTERY W/O ANG PCTRS Active 2024-04 00:00: 00 UNSPECIFIED ATRIAL FIBRILLATION Active 2024-04 00:00: 00 PRIMARY OSTEOARTHRIT IS, RIGHT SHOULDER Active 2024-04 00:00: 00 PRIMARY OSTEOARTHRIT IS, LEFT SHOULDER Active 2024-04 00:00: 00 SPONDYLOSIS W/O MYELOPATHY OR RADICULOPATH Y, LUMBAR REGION Active 2024-04 00:00: 00 UNSPECIFIED CERVICAL DISC DISORDER AT C6-C7 LEVEL Active 2024-04 00:00: 00 OTHER INTERVERTEBR AL DISC DISORDERS, THORACIC REGION Active 2024-04 00:00: 00 SPINAL STENOSIS, CERVICOTHORA CIC REGION Active 2024-04 00:00: 00 AGE-RELATED OSTEOPOROSIS W/O CURRENT PATHOLOGICAL FRACTURE Active 2024-04 00:00: 00 RHEUMATOID ARTHRITIS, UNSPECIFIED Active 2024-04 00:00: 00 (IDIOPATHIC) NORMAL PRESSURE HYDROCEPHALU S Active 2024-04 00:00: 00 OBSTRUCTIVE SLEEP APNEA (ADULT) (PEDIATRIC) Active 2024-04 00:00: 00 DEPRESSION, UNSPECIFIED Active 2024-04 00:00: 00 ANXIETY DISORDER, UNSPECIFIED Active 2024-04 00:00: 00 HYPO-OSMOLAL ITY AND HYPONATREMIA Active 2024-04 00:00: 00 HYPERLIPIDEM IA, UNSPECIFIED Active 2024-04 00:00: 00 HYPOTHYROIDI SM, UNSPECIFIED Active 2024-04 00:00: 00 ENCOUNTER FOR ADJUSTMENT AND MANAGEMENT OF VAD Active 2024-04 00:00: 00 USP (CURRENT) USE OF ANTIBIOTICS Active 2024-04 00:00: 00 USP (CURRENT) USE OF ANTICOAGULAN TS Active 2024-04 00:00: 00 PRSNL HX OF TIA (TIA), AND CEREB INFRC W/O RESID DEFICITS Active 04-14 00:00: 00 PRESENCE OF AORTOCORONAR Y BYPASS GRAFT Active 04-14 00:00: 00 PRESENCE OF CEREBROSPINA L FLUID DRAINAGE DEVICE Active 04-14 00:00: 00 Allergies, Adverse Reactions, Alerts Allergy Name Allergy Type Status Severity Reaction(s) Onset Date Inactive Date Treating Clinician Comments GUAIFENESIN Propensity to adverse reactions Active 2024-04 08:52: 02 Medications Ordered Medication Name Filled Medication Name Start Date Stop Date Current Medication? Ordering Clinician Indication Dosage Frequency Signature (SIG) Comments Components amoxicillin 875 mg tablet 01-10 00:00: 00 01-24 00:00 :00 No [id number] Per instruc tions TWICE DAILY Per instructio ns TWICE DAILY (route: oral) Med Classific ation: Anti-Infe ctive Agents Lidocaine Viscous 2 % mucosal solution 01-10 00:00: 00 01-24 00:00 :00 No [id number] Per instruc tions Per instructio ns (route: mucous membrane) Med Classific ation: Mouth-Thr oat-Denta l - Preparati ons Levoxyl 75 mcg tablet 01-08 00:00: 00 01-24 00:00 :00 No [id number] Per instruc tions ONCE DAILY Per instructio ns ONCE DAILY (route: oral) Med Classific ation: Endocrine atorvastati n 20 mg tablet 01-02 00:00: 00 02-16 23:59 :00 No [id number] HIGH CHOLESTEROL Per instruc tions ONCE DAILY Per instructio ns ONCE DAILY (route: oral) Med Classific ation: Cardiovas cular Therapy Agents hydroxychlo roquine 200 mg tablet 12-18 00:00: 00 02-16 23:59 :00 No [id number] INFLAMMATOR Y ARTHRITIS 1 tablet TWICE DAILY 1 tablet TWICE DAILY (route: oral) Med Classific ation: Anti-Infe ctive Agents Acetaminoph en Extra Strength 500 mg tablet 2021-04 00:00: 00 02-16 23:59 :00 No [id number] NEEDED FOR PAIN 2 tablet EVERY 6 HOURS 2 tablet EVERY 6 HOURS (route: oral) Med Classific ation: Analgesic , Anti-infl ammatory or Antipyret ic aspirin 81 mg tablet,cortney yed release 2021-04 00:00: 00 02-16 23:59 :00 No [id number] HEART HEALTH 1 tablet 3 TIMES A WEEK 1 tablet 3 TIMES A WEEK (route: oral) Med Classific ation: Hematolog ical Agents biotin 1,000 mcg chewable tablet 2021-04 00:00: 00 02-16 23:59 :00 No [id number] SUPPLEMENT 1 tablet DAILY 1 tablet DAILY (route: oral) Med Classific ation: Electroly te Balance-N utritiona [employer] docusate sodium 100 mg capsule 2021-04 0-12 00:00: 00 02-16 23:59 :00 No [id number] NEEDED FOR CONSTIPATIO N 1 capsule DAILY 1 capsule DAILY (route: oral) Med Classific ation: Gastroint estinal Therapy Agents duloxetine 60 mg capsule,del ayed release 4- 00:00: 00 02-16 23:59 :00 No [id number] ANT DEPRESSANT 1 capsule DAILY 1 capsule DAILY (route: oral) Med Classific ation: Central Nervous System Agents folic acid 1 mg tablet 2021-04 0- 00:00: 00 02-16 23:59 :00 No [id number] SUPPLEMENT 1 tablet DAILY 1 tablet DAILY (route: oral) Med Classific ation: Electroly te Balance-N utritiona [employer] Gemtesa 75 mg tablet 4- 00:00: 00 02-16 23:59 :00 No [id number] INCONTINENC E 1 tablet DAILY 1 tablet DAILY (route: oral) Med Classific ation: Genitouri nary Therapy Levoxyl 75 mcg tablet 2020-04 0 00:00: 00 02-16 23:59 :00 No [id number] THYROID 1 tablet DAILY 1 tablet DAILY (route: oral) Med Classific ation: Endocrine meloxicam 15 mg tablet 2020-04 0- 00:00: 00 02-16 23:59 :00 No [id number] NEEDED FOR ARTHRITIS PAIN 1 tablet DAILY 1 tablet DAILY (route: oral) Med Classific ation: Analgesic , Anti-infl ammatory or Antipyret ic methotrexat e sodium 2.5 mg tablet 2020-04 0- 00:00: 00 02-16 23:59 :00 No [id number] INFLAMMATOR Y ARTHRITIS 8 tablet WEEKLY 8 tablet WEEKLY (route: oral) Med Classific ation: Antineopl astics olmesartan 40 mg tablet 2020-04 0- 00:00: 00 02-16 23:59 :00 No [id number] HYPERTENSIO N 1 tablet DAILY 1 tablet DAILY (route: oral) Med Classific ation: Cardiovas cular Therapy Agents oxycodone 5 mg tablet 2021-04 00:00: 00 02-16 23:59 :00 No [id number] NEEDED FOR PAIN 1 tablet EVERY 4 HOURS 1 tablet EVERY 4 HOURS (route: oral) Med Classific ation: Analgesic , Anti-infl ammatory or Antipyret ic trazodone 50 mg tablet 2019-04 00:00: 00 02-16 23:59 :00 No [id number] NEEDED FOR SLEEP AID 1 tablet BEDTIME 1 tablet BEDTIME (route: oral) Med Classific ation: Central Nervous System Agents Vitamin D3 25 mcg (1,000 unit) capsule 2019-04 00:00: 00 02-16 23:59 :00 No [id number] SUPPLEMENT 1 capsule DAILY 1 capsule DAILY (route: oral) Med Classific ation: Electroly te Balance-N utritiona l Products carvedilol 12.5 mg tablet 2021-04 00:00: 00 03-15 23:59 :00 No [id number] BLOOD PRESSURE 2 tablet EVERY 12 HOURS 2 tablet EVERY 12 HOURS (route: oral) Med Classific ation: Cardiovas cular Therapy Agents carvedilol 12.5 mg tablet 2021-04 00:00: 00 02-16 23:59 :00 No [id number] HEART 12.5 mg 2 TIMES DAILY 12.5 mg 2 TIMES DAILY (route: oral) Med Classific ation: Cardiovas cular Therapy Agents Vital Signs Vital Name Observation Time Observation Value Commen ts Temperature 2025-02-28 12:27:00.000 97.2 [degF] Temperature 2025-02-26 09:32:00.000 98.3 [degF] BMI (%) 2025-02-26 09:24:16.000 26 kg/m2 Height 2025-02-26 09:22:00.000 62 [in_us] Pulse 2025-02-28 12:27:00.000 72 /min Pulse 2025-02-26 09:32:00.000 83 /min O2 Saturation (%) 2025-02-28 12:27:00.000 98 % O2 Saturation (%) 2025-02-26 09:32:00.000 95 % Respirations 2025-02-28 12:27:00.000 18 /min Respirations 2025-02-26 09:32:00.000 18 /min Weight (lbs) 2025-02-26 09:24:16.000 143 [lb_av] Systolic Blood Pressure 2025-02-28 12:27:00.000 128 mm [Hg] Systolic Blood Pressure 2025-02-26 09:32:00.000 114 mm [Hg] Diastolic Blood Pressure 2025-02-28 12:27:00.000 84 mm [Hg] Diastolic Blood Pressure 2025-02-26 09:32:00.000 66 mm [Hg] Plan of Treatment Planned Activity Planned Date Details Comments Future Scheduled Test RN TO OBSE RVE, ASSESS, EVALUATE, AND DEVELOP AN INDIVIDUALIZED PLAN OF CARE. AGENCY MAY ACCEPT ORDERS FROM CONSULTING PHYSICIANS RN TO OBSERVE AND ASSESS, MANAGER MERCHANDISING/PIPE CUTTER TO OBSERVE FOR RISK FOR FALLS AND INSTRUCT IN FALL PREVENTION, HOME SAFETY, MEDICATION MANAGEMENT, INFECTION PREVENTION, AND NUTRITION MANAGEMENT. RN/MANAGER MERCHANDISING/PIPE CUTTER NURSE MAY PERFORM O2 SATURATION LEVEL ON ADMISSION AND PRN FOR EVERY VISIT FOR RN TO ASSESS/MANAGER MERCHANDISING TO OBSERVE PATIENT, WITH NOTIFICATION TO THE PHYSICIAN IF SATURATION IS 90% IN THE ABSENCE OF MORE SPECIFIC PARAMETERS FROM THE PHYSICIAN. AGENCY MAY PERFORM A RESUMPTION OF CARE VISIT FOLLOWING ANY HOSPITAL ADMISSION. RN/MANAGER MERCHANDISING/PIPE CUTTER TO MONITOR CO-MORBID CONDITIONS LISTED ON THE PLAN OF CARE AND ANY NEW CONDITIONS THAT PRESENT THEMSELVES DURING THIS EPISODE TO IDENTIFY CHANGES AND INTERVENE TO MINIMIZE COMPLICATIONS. [code = RN TO OBSERVE, ASSESS, EVALUATE, AND DEVELOP AN INDIVIDUALIZED PLAN OF CARE. AGENCY MAY ACCEPT ORDERS FROM CONSULTING PHYSICIANS RN TO OBSERVE AND ASSESS, MANAGER MERCHANDISING/PIPE CUTTER TO OBSERVE FOR RISK FOR FALLS AND INSTRUCT IN FALL PREVENTION, HOME SAFETY, MEDICATION MANAGEMENT, INFECTION PREVENTION, AND NUTRITION MANAGEMENT. RN/MANAGER MERCHANDISING/PIPE CUTTER NURSE MAY PERFORM O2 SATURATION LEVEL ON ADMISSION AND PRN FOR EVERY VISIT FOR RN TO ASSESS/MANAGER MERCHANDISING TO OBSERVE PATIENT, WITH NOTIFICATION TO THE PHYSICIAN IF SATURATION IS 90% IN THE ABSENCE OF MORE SPECIFIC PARAMETERS FROM THE PHYSICIAN. AGENCY MAY PERFORM A RESUMPTION OF CARE VISIT FOLLOWING ANY HOSPITAL ADMISSION. RN/MANAGER MERCHANDISING/PIPE CUTTER TO MONITOR CO-MORBID CONDITIONS LISTED ON THE PLAN OF CARE AND ANY NEW CONDITIONS THAT PRESENT THEMSELVES DURING THIS EPISODE TO IDENTIFY CHANGES AND INTERVENE TO MINIMIZE COMPLICATIONS.] Future Scheduled Test MEDICATION MANAGEMENT; RN/MANAGER MERCHANDISING/PIPE CUTTER TO REVIEW MEDICATIONS FOR INTERACTIONS, EFFECTIVENESS OF DRUG THERAPY, AND SIGNS/SYMPTOMS OF ADVERSE REACTIONS. MAY INSTRUCT AND REINFORCE MEDICATION TEACHING RELATED TO THE USE OF MEDICATIONS, DOSAGE, FREQUENCY, PURPOSE, SIDE EFFECTS, AND TO REPORT COMPLICATIONS. [code = MEDICATION MANAGEMENT; RN/MANAGER MERCHANDISING/PIPE CUTTER TO REVIEW MEDICATIONS FOR INTERACTIONS, EFFECTIVENESS OF DRUG THERAPY, AND SIGNS/SYMPTOMS OF ADVERSE REACTIONS. MAY INSTRUCT AND REINFORCE MEDICATION TEACHING RELATED TO THE USE OF MEDICATIONS, DOSAGE, FREQUENCY, PURPOSE, SIDE EFFECTS, AND TO REPORT COMPLICATIONS.] Future Scheduled Test ANTITHROMB OTIC MANAGEMENT; RN TO ASSESS AND TEACH, MANAGER MERCHANDISING/PIPE CUTTER TO OBSERVE/TEACH/MONITOR EFFECTIVENESS OF ANTITHROMBOTIC THERAPY. RN/MANAGER MERCHANDISING/PIPE CUTTER TO INSTRUCT ON SIGNS AND SYMPTOMS OF BLEEDING/ADVERSE REACTIONS TO REPORT TO PHYSICIAN. PATIENT PRESCRIBED ELIQUIS [code = ANTITHROMBOTIC MANAGEMENT; RN TO ASSESS AND TEACH, MANAGER MERCHANDISING/PIPE CUTTER TO OBSERVE/TEACH/MONITOR EFFECTIVENESS OF ANTITHROMBOTIC THERAPY. RN/MANAGER MERCHANDISING/PIPE CUTTER TO INSTRUCT ON SIGNS AND SYMPTOMS OF BLEEDING/ADVERSE REACTIONS TO REPORT TO PHYSICIAN. PATIENT PRESCRIBED ELIQUIS] Future Scheduled Test RISK FOR H OSPITALIZATION; RN TO ASSESS/TEACH, PIPE CUTTER/MANAGER MERCHANDISING TO OBSERVE/TEACH PATIENT/CAREGIVER ON RISK FOR HOSPITALIZATION/EMERGENCY ROOM VISITS, TEACH SIGNS AND SYMPTOMS THAT PUT PATIENT AT RISK, WHEN TO NOTIFY NURSE/PHYSICIAN OF COMPLICATIONS/DECLINE, AND WHEN TO CALL 911. [code = RISK FOR HOSPITALIZATION; RN TO ASSESS/TEACH, PIPE CUTTER/MANAGER MERCHANDISING TO OBSERVE/TEACH PATIENT/CAREGIVER ON RISK FOR HOSPITALIZATION/EMERGENCY ROOM VISITS, TEACH SIGNS AND SYMPTOMS THAT PUT PATIENT AT RISK, WHEN TO NOTIFY NURSE/PHYSICIAN OF COMPLICATIONS/DECLINE, AND WHEN TO CALL 911.] Future Scheduled Test CARDIOVASC ULAR SYSTEM; RN TO ASSESS/TEACH, MANAGER MERCHANDISING/PIPE CUTTER TO OBSERVE/TEACH RELATED TO ALTERED CARDIOVASCULAR STATUS TO MINIMIZE COMPLICATIONS AND REDUCE HOSPITALIZATION. [code = CARDIOVASCULAR SYSTEM; RN TO ASSESS/TEACH, MANAGER MERCHANDISING/PIPE CUTTER TO OBSERVE/TEACH RELATED TO ALTERED CARDIOVASCULAR STATUS TO MINIMIZE COMPLICATIONS AND REDUCE HOSPITALIZATION.] Future Scheduled Test HYPERTENSI ON MANAGEMENT; RN TO ASSESS AND TEACH, MANAGER MERCHANDISING/PIPE CUTTER TO OBSERVE AND TEACH WARNING SIGNS AND SYMPTOMS TO AVOID HOSPITALIZATION. [code = HYPERTENSION MANAGEMENT; RN TO ASSESS AND TEACH, MANAGER MERCHANDISING/PIPE CUTTER TO OBSERVE AND TEACH WARNING SIGNS AND SYMPTOMS TO AVOID HOSPITALIZATION.] Future Scheduled Test PRN VISITS ; NUMBER OF RN/MANAGER MERCHANDISING/PIPE CUTTER VISITS: 1 RN/MANAGER MERCHANDISING/PIPE CUTTER TO PERFORM: IV PICC MANAGEMENT FOR THE FOLLOWING REASONS: COMPLICATIONS [code = PRN VISITS; NUMBER OF RN/MANAGER MERCHANDISING/PIPE CUTTER VISITS: 1 RN/MANAGER MERCHANDISING/PIPE CUTTER TO PERFORM: IV PICC MANAGEMENT FOR THE FOLLOWING REASONS: COMPLICATIONS] Future Scheduled Test PHYSICAL T HERAPIST TO EVALUATE FOR EVALUATION AND TREATMENT [code = PHYSICAL THERAPIST TO EVALUATE FOR EVALUATION AND TREATMENT] Future Scheduled Test OCCUPATION AL THERAPIST TO EVALUATE FOR EVALUATION AND TREATMENT [code = OCCUPATIONAL THERAPIST TO EVALUATE FOR EVALUATION AND TREATMENT] Future Scheduled Test FALL REDUC TION MANAGEMENT; RN TO ASSESS AND OBSERVE, MANAGER MERCHANDISING/PIPE CUTTER TO OBSERVE FALL RISK FACTORS AND EDUCATE PATIENT/CAREGIVER ON STRATEGIES TO MINIMIZE THE RISK OF FALLING. [code = FALL REDUCTION MANAGEMENT; RN TO ASSESS AND OBSERVE, MANAGER MERCHANDISING/PIPE CUTTER TO OBSERVE FALL RISK FACTORS AND EDUCATE PATIENT/CAREGIVER ON STRATEGIES TO MINIMIZE THE RISK OF FALLING.] Future Scheduled Test PAIN MANAG EMENT; RN TO ASSESS AND TEACH, PIPE CUTTER/MANAGER MERCHANDISING TO OBSERVE AND TEACH AND PROVIDE EDUCATION ON PAIN MANAGEMENT TECHNIQUES. [code = PAIN MANAGEMENT; RN TO ASSESS AND TEACH, PIPE CUTTER/MANAGER MERCHANDISING TO OBSERVE AND TEACH AND PROVIDE EDUCATION ON PAIN MANAGEMENT TECHNIQUES.] Future Scheduled Test IV THERAPY MANAGEMENT; RN TO ASSESS AND TEACH, PIPE CUTTER/MANAGER MERCHANDISING TO OBSERVE AND TEACH ON IV ACCESS SITE RUE RESPONSE TO MEDICATION. RN/PIPE CUTTER/MANAGER MERCHANDISING FOR SKILLED TEACHING REGARDING INFUSION PROCEDURE, CARE OF ACCESS DEVICE, SIGNS AND SYMPTOMS OF ACCESS DEVICE COMPLICATIONS AND, CARE AND USE OF INFUSION EQUIPMENT. [code = IV THERAPY MANAGEMENT; RN TO ASSESS AND TEACH, PIPE CUTTER/MANAGER MERCHANDISING TO OBSERVE AND TEACH ON IV ACCESS SITE RUE RESPONSE TO MEDICATION. RN/PIPE CUTTER/MANAGER MERCHANDISING FOR SKILLED TEACHING REGARDING INFUSION PROCEDURE, CARE OF ACCESS DEVICE, SIGNS AND SYMPTOMS OF ACCESS DEVICE COMPLICATIONS AND, CARE AND USE OF INFUSION EQUIPMENT.] Future Scheduled Test PICC LINE REMOVAL; RN/MANAGER MERCHANDISING/PIPE CUTTER TO REMOVE PICC LINE ON PER MD ORDERS [code = PICC LINE REMOVAL; RN/MANAGER MERCHANDISING/PIPE CUTTER TO REMOVE PICC LINE ON PER MD ORDERS] Future Scheduled Test IV THERAPY ADMINISTRATION; RN/MANAGER MERCHANDISING/PIPE CUTTER TO OBTAIN IV ACCESS VIA RIGHT UPPER ARM DOUBLE LUMEN USING NEEDLESS LUER LOCK RN/MANAGER MERCHANDISING/PIPE CUTTER TO INFUSE AND/OR TEACH PATIENT/CAREGIVER INFUSION OF DAPTOMYCIN 500 MG IN NS 10ML SYRINGEC AT OVER 3VMINUTES VIA RATE CONTROL TUBING AND CHANGE PRN FOR LOOSE OR SOILED DRESSINGS. INJECTION CAP CHANGE WEEKLY AND WITH EACH LAB DRAW AND PRN FOR CONTAMINATION OR MALFUNCTION. EXTENSION TUBING TO BE CHANGED WEEKLY AND WITH EACH LAB DRAW AND PRN FOR PROBLEMS. SKIN PREP PRN; SECUREMENT DEVICE PRN. BIOPATCH PRN FOR REDNESS OR NEUTROPENIA. RN/MANAGER MERCHANDISING/PIPE CUTTER TO PERFORM/INSTRUCT PATIENT/CAREGIVER TO FLUSH IV ACCESS 10CC NS WITH 3-5 ML RN/MANAGER MERCHANDISING/PIPE CUTTER TO PERFORM SITE CARE FOR INFUSION ACCESS DEVICE PICC LINE WITH DRESSING CHANGE TO INCLUDE WEEKLY DRESSING CHANGES. RN/MANAGER MERCHANDISING/PIPE CUTTER TO CLEANSE ACCESS SITE WITH SUPPLIES PROVIDED VIA [facility] DME PROVIDED BY [employer] THAT IS IN THE PATIENT S HOME. ALLOW TO AIR DRY AND THEN APPLY DRESSING APPLIED RIGHT PICC LINE TO ACCESS SITE COVER WITH OCCLUSIVE DRESSING AND SECURE WITH ANCHOR DEVICE PROVIDED BY [employer] FREQUENCY WEEKLY OR PRN. NURSE MAY DRAW FROM PICC LINE, CHANGE CAP, AND EXTENSION TUBING AFTER EACH LAB DRAW. FLUSH WITH 10CC OF NS DRAW BACK 10CC OF BLOOD AND DISCARD. OBTAIN LABS AND THEN FLUSH LINE WITH ANOTHER 10CC OF NORMAL SALINE. IF NURSE IS UNABLE TO DRAW LABS FROM PICC LINE. LABS MAYBE OBTAINED LABS VIA VENIPUNCTURE. [code = IV THERAPY ADMINISTRATION; RN/MANAGER MERCHANDISING/PIPE CUTTER TO OBTAIN IV ACCESS VIA RIGHT UPPER ARM DOUBLE LUMEN USING NEEDLESS LUER LOCK RN/MANAGER MERCHANDISING/PIPE CUTTER TO INFUSE AND/OR TEACH PATIENT/CAREGIVER INFUSION OF DAPTOMYCIN 500 MG IN NS 10ML SYRINGEC AT OVER 3VMINUTES VIA RATE CONTROL TUBING AND CHANGE PRN FOR LOOSE OR SOILED DRESSINGS. INJECTION CAP CHANGE WEEKLY AND WITH EACH LAB DRAW AND PRN FOR CONTAMINATION OR MALFUNCTION. EXTENSION TUBING TO BE CHANGED WEEKLY AND WITH EACH LAB DRAW AND PRN FOR PROBLEMS. SKIN PREP PRN; SECUREMENT DEVICE PRN. BIOPATCH PRN FOR REDNESS OR NEUTROPENIA. RN/MANAGER MERCHANDISING/PIPE CUTTER TO PERFORM/INSTRUCT PATIENT/CAREGIVER TO FLUSH IV ACCESS 10CC NS WITH 3-5 ML RN/MANAGER MERCHANDISING/PIPE CUTTER TO PERFORM SITE CARE FOR INFUSION ACCESS DEVICE PICC LINE WITH DRESSING CHANGE TO INCLUDE WEEKLY DRESSING CHANGES. RN/MANAGER MERCHANDISING/PIPE CUTTER TO CLEANSE ACCESS SITE WITH SUPPLIES PROVIDED VIA [facility] [employer] DME PROVIDED BY [employer] THAT IS IN THE PATIENT S HOME. ALLOW TO AIR DRY AND THEN APPLY DRESSING APPLIED RIGHT PICC LINE TO ACCESS SITE COVER WITH OCCLUSIVE DRESSING AND SECURE WITH ANCHOR DEVICE PROVIDED BY [employer] FREQUENCY WEEKLY OR PRN. NURSE MAY DRAW FROM PICC LINE, CHANGE CAP, AND EXTENSION TUBING AFTER EACH LAB DRAW. FLUSH WITH 10CC OF NS DRAW BACK 10CC OF BLOOD AND DISCARD. OBTAIN LABS AND THEN FLUSH LINE WITH ANOTHER 10CC OF NORMAL SALINE. IF NURSE IS UNABLE TO DRAW LABS FROM PICC LINE. LABS MAYBE OBTAINED LABS VIA VENIPUNCTURE.] Future Scheduled Test VENIPUNCTU RE DIAGNOSTIC AND LAB DRAW VIA VASCULAR ACCESS DEVICE; RN/MANAGER MERCHANDISING/PIPE CUTTER TO PERFORM VENIPUNCTURE FOR CBC WITH DIFF, CMP, AND CK ESR AND CRP WEEKLY DELIVER TO LAB FAX/CALL IN RESULTS TO IV CARE [facility] FAX NUMBER [phone] DR DONA GUEVARA FAX NUMBER [phone] [code = VENIPUNCTURE DIAGNOSTIC AND LAB DRAW VIA VASCULAR ACCESS DEVICE; RN/MANAGER MERCHANDISING/PIPE CUTTER TO PERFORM VENIPUNCTURE FOR CBC WITH DIFF, CMP, AND CK ESR AND CRP WEEKLY DELIVER TO LAB FAX/CALL IN RESULTS TO IV CARE INFUSION FAX NUMBER [phone] DR DONA GUEVARA FAX NUMBER [phone]] Goal Patient Goal - PLOF TO GET S [facility] Goal Provider Goal - A PLAN OF CARE WILL BE ESTABLISHED THAT MEETS THE PATIENT S NEEDS. PATIENT WILL DEMONSTRATE OXYGEN SATURATION WITHIN NORMAL LIMITS OR PATIENT S OPTIMAL LEVEL ESTABLISHED BY THE PHYSICIAN THROUGHOUT CARE. CHANGES TO CO-MORBID CONDITIONS AND ANY NEW CONDITIONS WILL BE IDENTIFIED AND REPORTED TO THE PHYSICIAN. Goal Provider Goal - PATIENT/CAREGIVER TO VERBALIZE, AND CONSISTENTLY DEMONSTRATE EFFECTIVE, SAFE MANAGEMENT OF MEDICATION INCLUDING KNOWLEDGE OF EFFECTIVENESS, POTENTIAL SIDE EFFECTS AND DRUG REACTIONS AND WHEN TO CONTACT THE APPROPRIATE CARE PROVIDER. PATIENT/CAREGIVER WILL BE ABLE TO VERBALIZE UNDERSTANDING OF MEDICATION REGIMEN AND ACCURATELY TAKE MEDICATIONS PRESCRIBED WITHOUT ADVERSE EFFECTS BY EOE Goal Provider Goal - PATIENT / CAREGIVER WILL PROMPTLY REPORT SIGNS AND SYMPTOMS OF BLEEDING OR ADVERSE REACTIONS TO THE PHYSICIAN. PATIENT/CAREGIVER WILL VERBALIZE UNDERSTANDING OF ANTITHROMBOTIC THERAPY MANAGEMENT BY END OF EPISODE. Goal Provider Goal - PATIENT/CAREGIVER WILL VERBALIZE UNDERSTANDING OF SIGNS AND SYMPTOMS THAT PUT THE PATIENT AT RISK FOR HOSPITALIZATION /EMERGENCY ROOM VISITS, WHEN TO NOTIFY NURSE/PHYSICIAN OF COMPLICATIONS/DECLINE AND WHEN TO CALL 911. Goal Provider Goal - PATIENT / CAREGIVER WILL VERBALIZE/DEMONSTRATE UNDERSTANDING OF MEASURES TO MANAGE ALTERED CARDIOVASCULAR STATUS BY EOE Goal Provider Goal - PATIENT / CAREGIVER WILL VERBALIZE/DEMONSTRATE AN ABILITY TO ADHERE TO SELF-MANAGEMENT OF HTN TO MINIMIZE COMPLICATIONS AND AVOID HOSPITALIZATION BY END OF EPISODE. Goal Provider Goal - Goal Provider Goal - Goal Provider Goal - Goal Provider Goal - PATIENT/CAREGIVER WILL VERBALIZE/DEMONSTRATE UNDERSTANDING OF FALL RISK FACTORS AND IMPLEMENT STRATEGIES TO MINIMIZE FALL RISK. PATIENT/CAREGIVER WILL VERBALIZE/DEMONSTRATE AN ABILITY TO ADHERE TO FALL REDUCTION SELF-MANAGEMENT AND LIFE-STYLE CHANGES BY EOE Goal Provider Goal - PATIENT / CAREGIVER WILL VERBALIZE / DEMONSTRATE UNDERSTANDING OF PAIN CONTROL MEASURES BY EOE Goal Provider Goal - PATIENT / CAREGIVER WILL VERBALIZE/DEMONSTRATE ABILITY TO CARE FOR ADMINISTER IV ADEQUATELY BY EOE Goal Provider Goal - PICC LINE WILL BE REMOVED WITHOUT COMPLICATIONS BY EOE Goal Provider Goal - PATIENT WILL VERBALIZE/DEMONSTRATE TOLERANCE TO INFUSION PROCEDURE BY EOE Goal Provider Goal - PATIENT WILL VERBALIZE TOLERANCE TO LAB DRAW FROM VASCULAR ACCESS DEVICE BY EOE Encounters Start Date/Time End Date/Time Encounter Type Admission Type Attending [facility] Care Department Encounter ID Discharge Date Discharge Status Discharge Condition Discharge Reason Percent Goals Met 2025-02-26 00:00:00 2025-04-26 00:00:00 Outpatient ERIBERTO [facility]ARTINES [facility] [id number]
== END 2025-03-18 15:52 | disposition short-term general hospital (02) | DRG 57 ==
LOC: ANHED 03-17 07:03 → ANHIMU 03-17 08:06
PROVIDERS: Internal Medicine Nephrology; Psychiatry & Neurology Neurology; Admitting Provider Student in an Organized Health Care Education/Training Program; Emergency Provider Student in an Organized Health Care Education/Training Program; PCP Family Medicine; Visit Provider Family Medicine
DX: I69.398 Other sequelae of cerebral infarction (principal); E87.1 Hypo-osmolality and hyponatremia; G91.2 (Idiopathic) normal pressure hydrocephalus; N17.9 Acute kidney failure, unspecified; I48.20 Chronic atrial fibrillation, unspecified; R41.82 Altered mental status, unspecified; I10 Essential (primary) hypertension; I48.91 Unspecified atrial fibrillation; E03.9 Hypothyroidism, unspecified; M06.9 Rheumatoid arthritis, unspecified; M47.816 Spondylosis without myelopathy or radiculopathy, lumbar region; G47.33 Obstructive sleep apnea (adult) (pediatric); F41.9 Anxiety disorder, unspecified; F32.A Depression, unspecified; Z20.822 Contact with and (suspected) exposure to COVID-19; Z98.2 Presence of cerebrospinal fluid drainage device; Z79.01 Long term (current) use of anticoagulants; Z79.82 Long term (current) use of aspirin; Z95.1 Presence of aortocoronary bypass graft; Z98.890 Other specified postprocedural states
CPT/HCPCS: 36415; 70250; 70450; 71045; 71275; 72129; 72132; 74018; 74177; 80053; 80069; 80143; 80179; 80307; 81001; 82077; 82306; 82533; 82550; 82570; 82607; 82746; 82803; 82948; 83605; 83690; 83735; 83880; 83921; 83930; 83935; 84100; 84295; 84300; 84439; 84443; 84480; 84484; 84540; 84550; 84560; 85025; 85027; 85610; 85730; 87040; 87637; 87641; 93005; 94640; 96365; 96366; 96367; 99291; A9270; G0378; J0456; J0692; J3373; J3480; J7030; J7050; J7070; J7131; Q9967